=== PATIENT | female | born 1945 | race Caucasian/White ===

== ENCOUNTER 2017-06-11 10:20 | Outpatient (CLI) | payer MEDICARE, OTHER | END 2017-06-11 10:21 | disposition short-term general hospital (02) | LOC: EMS 10:20 | PROVIDERS: ATTEND Surgery | DX: R53.1 Weakness (principal); S91.312A Laceration without foreign body, left foot, initial encounter; W18.30XA Fall on same level, unspecified, initial encounter; Y92.039 Unspecified place in apartment as the place of occurrence of the external cause | CPT/HCPCS: A0425; A0429; A0888 ==

== ENCOUNTER 2017-11-13 11:52 | Outpatient (CLI) | payer MEDICARE, OTHER | END 2017-11-13 11:53 | disposition critical access hospital (66) | LOC: EMS 11:52 | PROVIDERS: ATTEND Surgery | DX: R53.1 Weakness (principal); R29.810 Facial weakness; R73.09 Other abnormal glucose | CPT/HCPCS: A0425; A0429 ==

== ENCOUNTER 2017-11-13 12:08 | Inpatient (IN) | payer MEDICARE, OTHER ==
--- NOTE | 2017-11-13 12:17 | ED Physician Documentation ---
PD HPI FOCAL NEURO - Stated complaint Stated Complaint: weakness - History obtained from History obtained from: Patient, EMS - History of Present Illness Timing - onset: Today (about 10 AM, when working with her Physicial therapist, had dyspnea and also noted to have right sided weakness and facial droop, per daughter as well. This persisted. Daughter increased her oxygen level to 5 lpm from 4 lpm, due to dyspnea and sats lower at 70%. Got neb treatment by EMS ( verbal by medic) and had just some facial droop right on arrival to ED per ER nurse. To CT soon after ED arrival. Sats are 92% on 4 lpm.) Timing - duration: Hours Timing - details: Abrupt onset, Still present Severity of deficit: Moderate Weakness: Face, Arm, Leg, Right Numbness: No: Face, Arm, Leg Associated symptoms: Other (dyspnea). No: Headache, Nausea / vomiting, Fall, Head injury Contributing factors: negative: Anticoagulated, Atrial fibrillation Baseline status: positive: Walker Similar symptoms before: Has not had sx before Recently seen: Not recently seen Review of Systems Constitutional: denies: Fever, Chills Nose: denies: Rhinorrhea / runny nose, Congestion Throat: denies: Sore throat Cardiac: denies: Chest pain / pressure, Palpitations Respiratory: reports: Dyspnea, Cough GI: denies: Abdominal Pain, Nausea, Vomiting, Diarrhea Skin: denies: Rash, Lesions Neurologic: reports: Generalized weakness, Focal weakness (today with apparent right weakness reported by daughter.). denies: Near syncope PD PAST MEDICAL HISTORY - Past Medical History Cardiovascular: Congestive heart failure Respiratory: Emphysema : Renal insuffiency Psych: Depression - Present Medications Home Medications: Ambulatory Orders Medication Instructions Recorded Confirmed Atorvastatin Calcium 40 mg PO DAILY 11/13/17 11/13/17 Bisacodyl [Dulcolax] 10 mg PO DAILY 11/13/17 11/13/17 Furosemide 20 mg PO MOWEFR@0800 11/13/17 11/13/17 HYDROcod/ACETAM 5/325 [[place] 5/325] 0.5 - 1 tab PO 0800,1600,2100 PRN 11/13/17 11/13/17 Insulin NPH Hum/Reg Insulin Hm 16 units SUBQ 0730 11/13/17 11/13/17 [Novolin 70-30 100 Unit/ml Vial] Insulin NPH Hum/Reg Insulin Hm 18 units SUBQ QPM 11/13/17 11/13/17 [Novolin 70-30 100 Unit/ml Vial] Levothyroxine Sodium [Synthroid] 200 mcg PO QDAC 11/13/17 11/13/17 Zinc 50 mg PO 1600 11/13/17 11/13/17 diphenhydrAMINE [Benadryl] 50 mg PO QPM 11/13/17 11/13/17 metFORMIN [Glucophage] 500 mg PO BIDWM 11/13/17 11/13/17 traMADol [Ultram] 50 mg PO 0800,1600 11/13/17 11/13/17 - Allergies Allergies/Adverse Reactions: Allergies Allergy/AdvReac Type Severity Reaction Status Date / Time No Known Drug Allergies Allergy Verified 11/13/17 12:15 PD ED PE NORMAL - Vitals Vital signs reviewed: Yes - General General: Alert and oriented X 3, Well developed/nourished - HEENT HEENT: Atraumatic, Ears normal, Pharynx benign - Neck Neck: Supple, no meningeal sign, No adenopathy, No bruit, Other (some JVD at 45 degrees) - Cardiac Cardiac: No murmur, No rub. No: RRR (regular but fast) - Respiratory Respiratory: No: Clear bilaterally (wet at bases and lower third. Soime scattered wheezing as well. ) - Abdomen Abdomen: Soft, Non tender - Female Female : Deferred - Rectal Rectal: Deferred - Back Back: No CVA TTP - Derm Derm: Normal color, Warm and dry - Extremities Extremities: No calf tenderness / cord, Other (edema in both ankles and legws 1+ . ) - Neuro Neuro: Alert and oriented X 3, No motor deficit, Normal speech NIHSS - Level of Consciousness Level of consciousness: (0) Alert, Keenly responsive LOC Questions: (0) Answers both Q's correct LOC Commands: (0) Performs both correctly - Gaze Best Gaze: (0) Normal - Visual Visual: (0) No loss - Facial Palsy Facial Palsy: (0) Normal, symmetrical movement - Motor Arms (both separate) Motor Arm (right): (0) No drift Motor Arm (left): (0) No drift - Motor Legs (both separate) Motor Leg (right): (0) No drift Motor Leg (left): (0) No drift - Limb Ataxia Limb Ataxia: (0) Absent - Sensory Sensory: (0) Normal - Best Language Best Language: (0) No aphasia - Dysarthria Dysarthria: (0) Normal - Extinction and Inattention (formally neg Extinction and inattention: (0) No abnormality - Total Score/Results Total Score/Result: 0 Results - Vitals Vitals: Vital Signs - 24 hr 11/13/17 11/13/17 11/13/17 12:11 12:50 13:30 Temperature 36.3 C L 36.3 C L Heart Rate 113 H 110 H 111 H Respiratory 20 18 22 Rate Blood Pressure 168/104 H O2 Saturation 94 92 Oxygen O2 Source Nasal cannula Oxygen Flow Rate 4 - EKG (time done) 12:52 Rate: Rate (enter#) (108) Rhythm: Sinus tachycardia [place]: Normal Intervals: Normal [place] QRS: Normal Ischemia: Normal ST segments. No: ST elevation c/w ischemia, ST depression - Labs Labs: Laboratory Tests 11/13/17 11/13/17 11/13/17 12:13 12:13 12:13 WBC 9.4 RBC 3.65 L Hgb 10.7 L Hct 33.9 L MCV 92.9 MCH 29.2 MCHC 31.5 L RDW 16.8 H Plt Count 232 MPV 8.2 Neut # 6.8 H Lymph # 1.2 L [place] # 1.1 H Eos # 0.1 Baso # 0.1 Absolute Nucleated RBC 0.00 Nucleated RBC % 0.0 Sodium 138 Potassium 4.5 Chloride 99 L Carbon Dioxide 29 Anion Gap 10.0 BUN 28 H Creatinine 1.5 H Estimated GFR (MDRD) 34 L Glucose 229 H Calcium 8.3 L Magnesium 1.6 L Total Bilirubin 0.4 AST 19 ALT < 10 L Alkaline Phosphatase 76 Troponin I B-Natriuretic Peptide Total Protein 7.4 Albumin 3.7 Globulin 3.7 Albumin/Globulin Ratio 1.0 Lipase 11 L 11/13/17 11/13/17 12:13 12:13 WBC RBC Hgb Hct MCV MCH MCHC RDW Plt Count MPV Neut # Lymph # [place] # Eos # Baso # Absolute Nucleated RBC Nucleated RBC % Sodium Potassium Chloride Carbon Dioxide Anion Gap BUN Creatinine Estimated GFR (MDRD) Glucose Calcium Magnesium Total Bilirubin AST ALT Alkaline Phosphatase Troponin I 0.30 B-Natriuretic Peptide 427 H Total Protein Albumin Globulin Albumin/Globulin Ratio Lipase - Rads (name of study) chest Radiology: Prelim report reviewed (congestive failure; no infiltrates) head CT/angio Radiology: Prelim report reviewed (no bleed, no acute flow abnormality) PD MEDICAL DECISION MAKING - ED course Complexity details: considered differential (consider TIA/small CVA, with improved symptoms. Associated with symptoms orf dyspnea and low sats, so could have been general weakness appearing more to right. Does have apparent exac CHF. ), d/w patient, d/w informatics consultant ([facility] - no acute interventions , usual workup for TIA vs. CVA. ) Departure - Departure Disposition: 66 [facility] DC/Xfer Clinical Impression: Right-sided muscle weakness Dyspnea Qualifiers: Dyspnea type: shortness of breath Qualified Code(s): R06.02 - Shortness of breath Acute exacerbation of CHF (congestive heart failure) Qualifiers: Congestive heart failure type: unspecified Qualified Code(s): I50.9 - Heart failure, unspecified TIA (transient ischemic attack) Qualifiers: Transient cerebral ischemia type: carotid artery syndrome (hemispheric) Qualified Code(s): G45.1 - Carotid artery syndrome (hemispheric) Condition: Stable Record reviewed to determine appropriate education?: Yes
[2017-11-13 12:25] LABS: BASOPHILS # (AUTO) 0.1 10^3/uL (0.0-0.1); BASOPHILS % (AUTO) 1.2 %; EOSINOPHILS # (AUTO) 0.1 10^3/uL (0.0-0.7); HGB - HEMOGLOBIN 10.7 g/dL (12.0-16.0); LYMPHOCYTES # (AUTO) 1.2 10^3/uL (1.5-3.5); LYMPHOCYTES % (AUTO) 13.2 %; MEAN CORPUSCULAR HEMOGLOBIN 29.2 pg (27.0-31.0); MEAN CORPUSCULAR HGB CONC 31.5 g/dL (32.0-36.0); MEAN CORPUSCULAR VOLUME 92.9 fL (81.0-99.0); MEAN PLATELET VOLUME 8.2 fL (7.9-10.8); MONOCYTES # (AUTO) 1.1 10^3/uL (0.0-1.0); MONOCYTES % (AUTO) 11.9 %; NEUTROPHILS # (AUTO) 6.8 10^3/uL (1.5-6.6); NEUTROPHILS % (AUTO) 72.7 %; PLT - PLATELET COUNT 232 10^3/uL (130-450); RED BLOOD COUNT 3.65 10^6/uL (4.20-5.40); RED CELL DISTRIBUTION WIDTH 16.8 % (12.0-15.0); WHITE BLOOD COUNT 9.4 x10^3/uL (4.8-10.8)
[2017-11-13] MEDS ORDERED: IOPAMIDOL-300 100 ML VIAL ONE (12:39)
[2017-11-13 12:42] LABS: ALBUMIN 3.7 g/dL (3.2-5.5); ALKALINE PHOSPHATASE 76 IU/L (42-121); ALT ALANINE AMINOTRANSFERASE < 10 IU/L (10-60); AST ASPARTATE AMINOTRANSFERASE 19 IU/L (10-42); BILIRUBIN,TOTAL 0.4 mg/dL (0.2-1.0); BUN - BLOOD UREA NITROGEN 28 mg/dL (6-20); CALCIUM 8.3 mg/dL (8.5-10.3); CARBON DIOXIDE - CO2 29 mmol/L (21-32); CHLORIDE 99 mmol/L (101-111); CREATININE 1.5 mg/dL (0.4-1.0); GFR - MDRD 34 (>89); GLUCOSE 229 mg/dL (70-100); LIPASE 11 U/L (22-51); SODIUM 138 mmol/L (135-145); TOTAL PROTEIN 7.4 g/dL (6.7-8.2)
--- NOTE | 2017-11-13 12:43 | XRAY Preliminary Report ---
Exam: XR CHEST 1 VIEW X-RAY IMPRESSION: 1. Mild CHF/fluid overload pattern including mild pulmonary vascular congestion and probable moderate cardiomegaly. 2. Elevation of the left hemidiaphragm. [facility] SITE ID: [id number]
--- NOTE | 2017-11-13 12:44 | XRAY Report ---
EXAM: CHEST RADIOGRAPHY EXAM DATE: 11/13/2017 12:32 PM. CLINICAL HISTORY: Dyspnea. COMPARISON: None. TECHNIQUE: 1 view. FINDINGS: Lungs/Pleura: The patient is markedly rotated. There is elevation of the left hemidiaphragm. There is mild pulmonary vascular congestion. No focal pulmonary consolidation. No large pleural effusion. No pneumothorax. Mediastinum: There is probable moderate enlargement of the cardiac silhouette, although this is diffi cult to evaluate due to patient rotation. Other: No acute osseous abnormality. IMPRESSION: 1. Mild CHF/fluid overload pattern including mild pulmonary vascular congestion and probable moderate cardiomegaly. 2. Elevation of the left hemidiaphragm. [facility] Referring Provider Line: [phone] SITE ID: [id number]
[2017-11-13] MEDS ORDERED: ASPIRIN CHEW 81 MG TABLET PO STA (13:00)
[2017-11-13] MEDS ORDERED: ALBUTEROL NEB 2.5 MG/3 ML INH STA (13:01)
[2017-11-13] MEDS ORDERED: FUROSEMIDE 40 MG/4 ML VIAL IVP STA (13:04)
--- NOTE | 2017-11-13 13:23 | CT Report ---
EXAM: CT ANGIOGRAM HEAD. CT SCAN OF THE HEAD WITHOUT AND WITH CONTRAST. EXAM DATE: 11/13/2017 12:47 PM CLINICAL HISTORY: Right weakness. COMPARISON: None. TECHNIQUE: 1. Noncontrast Head: Using a multidetector scanner, axial images were acquired from the foramen magnu m to the skull vertex prior to contrast administration. 2. CTA Head and Neck: Using a multidetector scanner, high-resolution axial images were acquired from the skull base through the vertex following rapid infusion of intravenous contrast. Multiplanar MIP r eformats were reconstructed. 3. Post-contrast head CT: 5 mm contiguous axial sections were obtained from the foramen magnum to bib cora was following CT angiogram. Evaluation of stenosis performed by NASCET criteria. IV Contrast: 80 cc [id number] protocol optimization, one or more of the following dose reduction techniques w ere utilized for this exam: automated exposure control, adjustment of mA and/or KV based on patient s ize, or use of iterative reconstructive technique. FINDINGS: NON-CONTRAST HEAD: Parenchyma: No acute parenchymal hemorrhage, mass, or midline shift. There is mild to moderate bilate ral areas of white matter hypoattenuation seen with more confluent areas seen within the left frontal left parietal lobes. These areas of white matter attenuation appear chronic. The supratentorial anahy ical mantle jackson-white differentiation appears distinct. Extra-axial Spaces: Normal. No extra-axial fluid collections or hemorrhage. Ventricles: Ventricles Orbits and Sinuses: Changes of bilateral lens replacement. Small bilateral maxillary mucosal retentio n cysts versus polyps. Small volume left mastoid effusion with trace right mastoid effusion. Middle e ar cavities appear clear.. Extracranial Soft Tissues and Bones: Extracranial soft tissues are unremarkable. No fractures. Other: Vascular calcifications of the cavernous ICA segments. CT ANGIOGRAM HEAD : RIGHT: Internal Carotid Artery: Tortuosity of the distal cervical ICA. Vascular calcification of the caverno us ICA segment with no high-grade stenosis seen. No aneurysm. Vertebral Artery: Patent without significant stenosis. No evidence of dissection. Anterior Cerebral Artery: Patent without significant stenosis, aneurysm, or vascular malformation. Middle Cerebral Artery: Patent without significant stenosis, aneurysm, or vascular malformation. Posterior Cerebral Artery: Patent without significant stenosis, aneurysm, or vascular malformation. Posterior Communicating Artery: Patent. No aneurysm. LEFT: Internal Carotid Artery: Tortuosity of the distal cervical ICA. Vascular calcification of the caverno us ICA segment with no high-grade stenosis seen. No aneurysm. Vertebral Artery: Patent without significant stenosis. No evidence of dissection. Anterior Cerebral Artery: Patent without significant stenosis, aneurysm, or vascular malformation. Middle Cerebral Artery: Patent without significant stenosis, aneurysm, or vascular malformation. Posterior Cerebral Artery: Patent without significant stenosis, aneurysm, or vascular malformation. Posterior Communicating Artery: Patent. No aneurysm. CENTRAL: Anterior Communicating Artery: Patent. No aneurysm. Basilar Artery: Patent without significant stenosis. No aneurysm. DURAL VENOUS SINUSES AND MAJOR CENTRAL VEINS: Patent. POST-CONTRAST HEAD: No abnormal enhancement. IMPRESSION: CT HEAD 1. No acute infarct, hemorrhage, mass, hydrocephalus, or abnormal postcontrast enhancement. 2. Mild to moderate white matter changes that appear chronic suggesting sequela of chronic small vess el ischemic disease. If there is clinical concern for acute stroke or symptoms persist an MR brain should be considered to evaluate for small or subtle pathology. CTA HEAD 1. No large vessel occlusion. 2. No intracranial aneurysm, stenosis, or vascular malformation. [facility] The call report notification system was initiated by Dr. Christiano Wilkes at 13:15 hrs on 11/01 12/16. The above findings were discussed with [facility] Charge Nurse by Dr. Christiano Wilkes at 1 3:20 hrs on 11/13/17. Referring Provider Line: [phone] SITE ID: [id number]
[2017-11-13] MEDS ORDERED: IOPAMIDOL-300 100 ML VIAL IVP ONE (13:33)
[2017-11-13] MEDS ORDERED: NITROGLYCERIN 2% PASTE TOP STA (14:01)
[2017-11-13] MEDS ORDERED: MAGNESIUM SULFATE 2 GRAM 2 GM/50 ML BAG IV ONE (14:02)
[2017-11-13] MEDS ORDERED: SODIUM CHLORIDE FLUSH 0.9% 10 ML SYRINGE IVP PRN (14:11)
[2017-11-13] MEDS ORDERED: TEMAZEPAM 15 MG CAPSULE PO PRN (14:11)
[2017-11-13] MEDS ORDERED: ACETAMINOPHEN 325 MG TABLET PO PRN (14:11)
[2017-11-13] MEDS ORDERED: SODIUM CHLORIDE 0.9% 1,000 ML IV SCH (15:00)
--- NOTE | 2017-11-13 15:27 | HISTORY & PHYSICAL EXAMINATION ---
Chief Complaint - Chief Complaint Chief Complaint: right sided weakness History of Present Illness - Admitted From Admitted From:: ED - History Obtained From Records Reviewed: yes History obtained from: chart review, daughter, patient Exam Limitations: patient's effort of breathing, discomfort and recent TIA sypmtoms. - History of Present Illness HPI Comment/Other: Aurora Pillai is a morbidly obese 72-year old white female with a past medical history of chronic pain, chronic indwelling roldan, fractured toes, DM type 2, CAD, HTN, hyperlipidemia, CHF,and hypothyroidism. She presented to the ED after her daughter found her with altered mental status around 0830, then at 10am the patient had a home visit from a physical therapist who immediately noticed a right facial droop with right sided weakness so an ambulance was called. Patient's daughter states that her mother had a low grade fever of 99.2 orally, slurred speech and she was much more tired than usual. She seemed to have trouble breathing so her daughter switched oxygen concentrators to see if the machine was the problem. The highest amount of O2 that could be given was 5L and her mother's saturations were in the 70's. Once she arrived in the ED, a head CT and CTA was performed that showed no acute bleeding. She will be admitted to observation for further work up of TIA. Upon acceptance, patient was noted to have an elevated troponin of 0.30. 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 She was for 32 years, but her about 4 years ago. She had 3 children, 3 girls and one boy. The boy at age 14 years. She raised her family in the state of [place]. Patient was a life-long smoker, but quit about 6 years ago after a really bad case of pneumonia. Patient denies alcohol, or other illicit drug use. She wishes to be a DNR. A long discussion about quality of life and possible upcoming procedures in the event she would need a cardiac cath. Patient was clear about not wanting anything invasive that would prolong her life. - Substance History Use: Uses substance without health or social issues: NONE Abuse: Recurrent use of substance despite neg consequences: NONE Dependence: Experiences withdrawal or developed tolerances: NONE - POLST Patient has POLST: Yes POLST Status: DNR Meds/Allgy - Home Medications Home Medications: Ambulatory Orders Medication Instructions Recorded Confirmed Atorvastatin Calcium 40 mg PO DAILY 11/13/17 11/13/17 Bisacodyl [Dulcolax] 10 mg PO DAILY 11/13/17 11/13/17 Furosemide 20 mg PO MOWEFR@0800 11/13/17 11/13/17 HYDROcod/ACETAM 5/325 [[place] 5/325] 0.5 - 1 tab PO 0800,1600,2100 PRN 11/13/17 11/13/17 Insulin NPH Hum/Reg Insulin Hm 16 units SUBQ 0730 11/13/17 11/13/17 [Novolin 70-30 100 Unit/ml Vial] Insulin NPH Hum/Reg Insulin Hm 18 units SUBQ QPM 11/13/17 11/13/17 [Novolin 70-30 100 Unit/ml Vial] Levothyroxine Sodium [Synthroid] 200 mcg PO QDAC 11/13/17 11/13/17 Zinc 50 mg PO 1600 11/13/17 11/13/17 diphenhydrAMINE [Benadryl] 50 mg PO QPM 11/13/17 11/13/17 metFORMIN [Glucophage] 500 mg PO BIDWM 11/13/17 11/13/17 traMADol [Ultram] 50 mg PO 0800,1600 11/13/17 11/13/17 - Allergies Allergies/Adverse Reactions: Allergies Allergy/AdvReac Type Severity Reaction Status Date / Time No Known Drug Allergies Allergy Verified 11/13/17 12:15 Review of Systems - Constitutional Constitutional: reports: Fatigue, Fever (99.2 per daughter, orally), Weakness - Eyes Eyes: reports: Vision loss, Corrective lenses - Ears, Nose & Throat Ears, Nose & Throat: reports: Hearing loss - Cardiovascular Cariovascular: reports: Edema, Decr. exercise tolerance - Respiratory Respiratory: reports: Cough, Wheezing, Orthopnea, SOB at rest, SOB with exertion , Other (chronic oxygen use- 4L nasal cannula.) - Gastrointestinal Gastrointestinal: reports: Abdominal distention, Constipation, Reflux/heartburn , Poor appetite - Genitourinary Genitourinary: reports: Dysuria, Frequency, Incontinence, Other (chronic indwelling roldan for immobility reasons since June.) - Integumentary Integumentary: reports: Lesions, Dryness, Other (yeasty folds, chronic coccyx wound) - Neurological Neurological: reports: General weakness, Focal weakness, Headache, Pre-existing deficit, Abnormal gait, Incoordination, Slurred speech - Psychiatric Psychiatric: reports: Depression - All Other Systems All Other Systems: reports: Reviewed and negative Exam - Vital Signs Reviewed Vital Signs: Yes Vital Signs: Vital Signs x48h Pulse Resp BP Pulse Ox 11/13/17 14:22 109 H 18 122/73 93 - Physical Exam General Appearance: positive: Alert, Moderate distress, Anxious Eyes Bilateral: positive: Normal inspection ENT: positive: ENT inspection nml Neck: positive: No JVD, Stiff neck Respiratory: positive: Chest non-tender, Wheezes, Rhonchi Cardiovascular: positive: No gallop, Irregularly irregular, Systolic murmur, Decreased pulse(s) Peripheral Pulses: positive: 1+ Abdomen: positive: Non-tender, Guarding, Hepatomegaly, Other (obese, soft) Skin: positive: No rash, Warm, Dry Extremities: positive: Pedal edema, Joint swelling, Other (weakness noted to RLE ) Neurologic/Psychiatric: positive: Oriented x3, Weakness, Sensory loss, Facial droop (right), Slurred/abnml speech (not baseline), Depressed mood/affect, Other (RUE, RLE weakness, drift.) Reflexes: Bicep (R): 1+, Bicep (L): 2+ Conclusion/Plan - Problem List (1) Right-sided muscle weakness Conclusion/Plan: Patient lives with her daughter and woke up around 8:30 am. Her last know normal was around 10pm. Her daughter noted that her mother was also not very alert and not breathing well and figured it might be her oxygen concentrator so changed it, but it still did not help. At 10am, a physical therapist came for her scheduled appointment and immediately noticed the patient with a right facial droop, right sided weakness, and hypoxic. Plan: TIA work up. Plavix loading dose of 300mg PO was ordered, echocardiogram , high dose statin and telemetry monitoring. (2) TIA (transient ischemic attack) Conclusion/Plan: Imaging completed in the ED showed no evidence of bleeding, although given presenting symptoms, likely a TIA. Plan: head MRI will be ordered, including a full work up. Qualifiers: Transient cerebral ischemia type: carotid artery syndrome (hemispheric) Qualified Code(s): G45.1 - Carotid artery syndrome (hemispheric) (3) Diabetes mellitus type 2 in obese Conclusion/Plan: Patient has had long standing DM with complicating factors such as morbid obesity, CAD, HTN and likely vascular disease. Plan: Hold home medications and start Lantus, SSI and blood sugar checks. HgA1C pending. (4) Elevated troponin Conclusion/Plan: Admission troponin was 0.30. There were no ST changes on admission EKG. Plan: New EKG ordered, repeat troponin at 6pm and 12 midnight and monitor vital signs. Code status: DNR. DVT prophylaxis: Lovenox and SCDs. - Lab Results Lab results reviewed: Yes Blayne Bones: 11/13/17 12:13 11/13/17 12:13 Core Measures - Anticipated LOS I expect patient to be DC'd or transferred within 96 hours.: Yes - DVT/VTE - Prophylaxis VTE/DVT Device ordered at admit?: Yes VTE/DVT Prophylaxis med ordered at admit?: Yes - Stroke - Rehab Assessment Rehab services assessment to be ordered?: Yes - AMI - Statin at Admit Aspirin Prescribed on Admit: Yes
[2017-11-13] MEDS ORDERED: CLOPIDOGREL 300 MG TABLET PO SCH (15:35)
[2017-11-13] MEDS ORDERED: LEVALBUTEROL 1.25 MG/3 ML NEB INH PRN (15:45)
[2017-11-13] MEDS ORDERED: MIN OIL/DIMETHICON/COCONUT OIL 92 GM TUBE TOP PRN (17:36)
[2017-11-13] MEDS ORDERED: A & D OINTMENT 5 GM PACKET TOP PRN (17:36)
[2017-11-13] MEDS ORDERED: COD LIVER OIL/ZINC OXIDE 113 GM TUBE TOP PRN (17:36)
[2017-11-13] MEDS: LEVOTHYROXINE 100 MCG TABLET PO SCH (18:20)
[2017-11-13] MEDS: ATORVASTATIN 40 MG TABLET PO SCH ×2 (18:20→20:41)
[2017-11-13] MEDS: SODIUM CHLORIDE FLUSH 0.9% 10 ML SYRINGE IVP SCH (18:21)
--- NOTE | 2017-11-13 18:21 | MRI Preliminary Report ---
Exam: MRI BRAIN W/O IMPRESSION: (Limited study. Only limited MR sequences could be obtained. Motion artifact is seen involving the se osvaldo that are obtained.) 1. No restricted diffusion to suggest acute infarct. 2. Scattered cystic foci in the cerebral hemispheres and left cerebellum. Findings likely represent s equela of old lacunar infarct. [facility] SITE ID: [id number]
[2017-11-13] MEDS: INSULIN ASPART 300 UNIT/3 ML PEN SUBQ SCH ×3 (18:27→21:32)
--- NOTE | 2017-11-13 18:40 | MRI Report ---
EXAM: MRI BRAIN WITHOUT CONTRAST (LIMITED). EXAM DATE: 11/13/2017 06:05 PM. CLINICAL HISTORY: Right-sided weakness. COMPARISON: CT scan and CT angiogram of the head 11/13/2017. TECHNIQUE: Axial, diffusion/ADC map as well as T2 MR sequences of the brain were performed. The patie nt was unable to tolerate completion of the exam. Sequences optimized for limited evaluation. Other: None. IV Contrast: None. FINDINGS: (Study is limited by motion artifact). Brain Volume: Normal for age. Parenchyma/Dura: No evidence of restricted diffusion is seen to suggest acute infarct. On T2-weighted series, several cystic foci are noted in the john radiata and pericallosal region bi laterally. Cystic focus is seen in the left cerebellum. No intracranial mass is appreciated. Ventricles/Cisterns: No hydrocephalus. No abnormal extra-axial fluid collection or hemorrhage. Orbits: Grossly unremarkable. Sella Turcica: Grossly unremarkable. Probable partially empty sella turcica. IAC: Grossly unremarkable. Vasculature: Normal signal flow void is seen in the major arterial structures at the skull base. Sinuses: No acute appearing sinus disease. Poor pneumatization of inferior mastoid air cells is noted . Bones: No focal pathologic appearing marrow signal changes. Other: None. IMPRESSION: (Limited study. Only limited MR sequences could be obtained. Motion artifact is seen involving the se osvaldo that are obtained.) 1. No restricted diffusion to suggest acute infarct. 2. Scattered cystic foci in the cerebral hemispheres and left cerebellum. Findings likely represent s equela of old lacunar infarct. [facility] Referring Provider Line: [phone] SITE ID: [id number]
[2017-11-13 19:12] LABS: CREATINE KINASE MB 3.7 ng/mL (0.6-6.3)
[2017-11-13 19:17] LABS: TROPONIN I 0.58 ng/mL (<0.49)
[2017-11-13 19:25] LABS: HB2 TOTAL 11.4 g/dL; HEMOGLOBIN A1C 0.47 g/dL; HEMOGLOBIN A1C % 5.9 % (4.6-6.2)
[2017-11-13] MEDS: SODIUM CHLORIDE 0.9% 1,000 ML IV SCH (20:06)
[2017-11-13] MEDS ORDERED: INSULIN GLARGINE 300 UNIT/3 ML PEN SUBQ SCH (21:00)
[2017-11-13] MEDS: HEPARIN 5,000 UNIT/ML VIAL SUBQ SCH (21:30)
[2017-11-13] MEDS: METOPROLOL TARTRATE 25 MG TABLET PO SCH (21:35)
[2017-11-14 00:43] LABS: BILIRUBIN,URINE NEGATIVE (NEGATIVE); GLUCOSE, URINE (UA) NEGATIVE (NEGATIVE); KETONES,URINE (UA) NEGATIVE (NEGATIVE); LEUKOCYTE ESTERASE, URINE SMALL (NEGATIVE); NITRITE,URINE POSITIVE (NEGATIVE); OCCULT BLOOD,URINE TRACE-INTA (NEGATIVE); PROTEIN,URINE NEGATIVE (NEGATIVE); UROBILINOGEN,URINE 0.2 (NORMAL) E.U./dL (NORMAL)
[2017-11-14] MEDS: NYSTATIN POWDER 15 GM TOP SCH ×3 (00:48→20:58)
[2017-11-14 00:52] LABS: AMORPHOUS SEDIMENT,UR Few /LPF; BACTERIA,URINE Rare /HPF (None Seen); CLARITY,URINE HAZY (CLEAR); EPITHELIAL CELLS,UR FEW Renal Tubular /HPF (<= Few); RBC,URINE 0-5 /HPF (0-5); SQUAMOUS EPITHELIAL CELL,UR NONE SEEN (<= Few)
[2017-11-14] MEDS ORDERED: ACETAMINOPHEN 325 MG TABLET PO PRN (01:42)
[2017-11-14 05:52] LABS: CALCIUM 8.4 mg/dL (8.5-10.3); CREATININE 1.1 mg/dL (0.4-1.0); MAGNESIUM 1.8 mg/dL (1.7-2.8)
[2017-11-14 06:01] LABS: CHOL/HDL RATIO 3.2 (<4.4); CHOLESTEROL 122 mg/dL; HDL CHOLESTEROL 38 mg/dL; LDL CHOLESTEROL,CALCULATED 52 mg/dL; LDL/HDL RATIO 1.4 (<4.4); VLDL CHOLESTEROL 32 mg/dL
[2017-11-14] MEDS: LEVOTHYROXINE 100 MCG TABLET PO SCH (06:13)
[2017-11-14] MEDS: FUROSEMIDE 40 MG/4 ML VIAL IVP SCH ×2 (06:14→14:48)
--- NOTE | 2017-11-14 06:40 | XRAY Preliminary Report ---
Exam: XR CHEST 1 VIEW X-RAY IMPRESSION: 1. Small lung volumes with cardiomegaly and increased asymmetric pulmonary opacities, right worse minna n left. [facility] SITE ID: [id number]
--- NOTE | 2017-11-14 06:40 | XRAY Report ---
EXAM: CHEST RADIOGRAPHY EXAM DATE: 11/14/2017 06:15 AM. CLINICAL HISTORY: Follow-up congestive heart failure. COMPARISON: 11/13/2017. TECHNIQUE: 1 view. FINDINGS: Lungs/Pleura: Asymmetric pulmonary opacities, right worse than left, increased compared with the prio r exam. Small lung volumes. Minimal if any pleural fluid. No pneumothorax. Mediastinum: Moderate cardiomegaly. Aortic atherosclerosis. Other: None. IMPRESSION: 1. Small lung volumes with cardiomegaly and increased asymmetric pulmonary opacities, right worse minna n left. [facility] Referring Provider Line: [phone] SITE ID: [id number]
[2017-11-14] MEDS: SODIUM CHLORIDE FLUSH 0.9% 10 ML SYRINGE IVP SCH ×3 (07:45→23:36)
[2017-11-14] MEDS: CLOPIDOGREL 75 MG TABLET PO SCH ×2 (08:23→09:09)
[2017-11-14] MEDS: ASPIRIN EC 81 MG TABLET PO SCH (08:24)
[2017-11-14] MEDS: NITROFURANTOIN MACRO 100 MG CAPSULE PO SCH ×2 (08:24→20:45)
[2017-11-14] MEDS: METOPROLOL TARTRATE 25 MG TABLET PO SCH ×2 (08:25→20:45)
[2017-11-14] MEDS: ISOSORBIDE MONONITRATE ER 30 MG TABLET PO SCH (08:25)
[2017-11-14] MEDS: BISACODYL 5 MG TABLET PO SCH (08:25)
[2017-11-14] MEDS: FAMOTIDINE 20 MG TABLET PO SCH (08:26)
[2017-11-14] MEDS: POLYETHYLENE GLYCOL 3350 17 GM PACKET PO SCH (08:27)
[2017-11-14] MEDS: INSULIN ASPART 300 UNIT/3 ML PEN SUBQ SCH ×7 (08:28→20:47)
[2017-11-14] MEDS: HEPARIN 5,000 UNIT/ML VIAL SUBQ SCH (08:37)
[2017-11-14] MEDS ORDERED: ENOXAPARIN 40 MG/0.4 ML SYRINGE SUBQ SCH (09:00)
--- NOTE | 2017-11-14 10:28 | PROVIDER PROGRESS NOTE ---
Subjective - Prog Note Date Prog Note Date: 11/14/17 Prog Note Time: 10:28 - Subjective Pt reports feeling: No change Subjective: Latoya wishes to go home. She denies chest pain, N/V or a new cough. She still needs increase amounts of oxygen. Current Medications - Current Medications Current Medications: Active Medications Acetaminophen (Tylenol) 650 mg PO Q4HR PRN PRN Reason: Pain or Fever > 38C (100.4F) Aspirin (Ecotrin) 81 mg PO DAILY [facility] Last Admin: 11/14/17 08:24 Dose: 81 mg Atorvastatin Calcium (Lipitor) 80 mg PO QPM [facility] Last Admin: 11/13/17 20:41 Dose: Not Given Bisacodyl (Dulcolax) 10 mg PO DAILY [facility] Last Admin: 11/14/17 08:25 Dose: 10 mg Clopidogrel Bisulfate (Plavix) 75 mg PO DAILY [facility] Last Admin: 11/14/17 09:09 Dose: Not Given Famotidine (Pepcid) 20 mg PO DAILY [facility] Last Admin: 11/14/17 08:26 Dose: 20 mg Furosemide (Lasix Inj 40 Mg Vial) 40 mg IVP BIDDIURETIC [facility] Last Admin: 11/14/17 06:14 Dose: 40 mg Heparin Sodium (Porcine) () 5,000 unit SUBQ BID [facility] Last Admin: 11/14/17 08:37 Dose: 5,000 unit Sodium Chloride (Normal Saline 0.9%) 1,000 mls @ 30 mls/hr IV .[id number] [facility] Last Admin: 11/13/17 20:06 Dose: Not Given Insulin Aspart (Novolog) 5 unit SUBQ TIDWM [facility] PRN Reason: Protocol Last Admin: 11/14/17 08:29 Dose: 5 unit Insulin Aspart (Novolog) 1 - 5 unit SUBQ 0800,1200,1700,2100 [facility] PRN Reason: Protocol Last Admin: 11/14/17 08:28 Dose: 2 unit Insulin Glargine (Lantus Solostar) 10 unit SUBQ QPM [facility] Last Admin: 11/13/17 21:33 Dose: 10 unit Insulin Human Isoph/Insulin Regular (Novolin) unit SUBQ 0730 PERNELL Insulin Human Isoph/Insulin Regular (Novolin) unit SUBQ QPM [facility] Isosorbide Mononitrate (Imdur) 30 mg PO DAILY [facility] Last Admin: 11/14/17 08:25 Dose: 30 mg Levalbuterol HCl (Xopenex) 1.25 mg INH RTQ4H PRN PRN Reason: WHEEZING/SOB Levothyroxine Sodium (Synthroid) 200 mcg PO QDAC [facility] Last Admin: 11/14/17 06:13 Dose: 200 mcg Metoprolol Tartrate (Lopressor) 25 mg PO BID [facility] Last Admin: 11/14/17 08:25 Dose: 25 mg Mineral Oil (Cavilon) 1 applic TOP PRN PRN PRN Reason: Skin Care Last Admin: 11/13/17 21:36 Dose: 1 unit Nitrofurantoin (Macrobid) 100 mg PO BID [facility] Last Admin: 11/14/17 08:24 Dose: 100 mg Nystatin (Nystop) 1 applic TOP BID [facility] Last Admin: 11/14/17 08:43 Dose: 1 applic Polyethylene Glycol (Miralax) 17 gm PO DAILY [facility] Last Admin: 11/14/17 08:27 Dose: 17 gm Sodium Chloride (Normal Saline Flush 0.9%) 10 ml IVP PRN PRN PRN Reason: NEEDED PER PROVIDER ORDERS Sodium Chloride (Normal Saline Flush 0.9%) 10 ml IVP Q8HR [facility] Last Admin: 11/14/17 07:45 Dose: Not Given Temazepam (Restoril) 15 mg PO QPM PRN PRN Reason: Insomnia Tramadol HCl (Ultram) 50 mg PO 0800,1600 [facility] Vitamin A/Vitamin D (Vitamin A & D Ointment) 1 applic TOP PRN PRN PRN Reason: Skin Care Zinc Oxide (Desitin) 113 gm TOP PRN PRN PRN Reason: Skin Care Last Admin: 11/13/17 21:37 Dose: 1 applic Atorvastatin Calcium 40 mg PO DAILY 11/13/17 Bisacodyl [Dulcolax] 10 mg PO DAILY 11/13/17 Furosemide 20 mg PO MOWEFR@0800 11/13/17 HYDROcod/ACETAM 5/325 [[place] 5/325] 0.5 - 1 tab PO 0800,1600,2100 PRN 11/13/17 Insulin NPH Hum/Reg Insulin Hm [Novolin 70-30 100 Unit/ml Vial] 16 units SUBQ 0730 11/13/17 Insulin NPH Hum/Reg Insulin Hm [Novolin 70-30 100 Unit/ml Vial] 18 units SUBQ QPM 11/13/17 Levothyroxine Sodium [Synthroid] 200 mcg PO QDAC 11/13/17 Zinc 50 mg PO 1600 11/13/17 diphenhydrAMINE [Benadryl] 50 mg PO QPM 11/13/17 metFORMIN [Glucophage] 500 mg PO BIDWM 11/13/17 traMADol [Ultram] 50 mg PO 0800,1600 11/13/17 Objective - Vital Signs/Intake & Output Reviewed Vital Signs: Yes Vital Signs: Vital Signs x48h Temp Pulse Resp BP BP Pulse Ox 11/14/17 08:25 156/72 H 11/14/17 07:54 36.9 C 100 16 156/72 H 95 Intake & Output: Intake & Output 11/11/17 11/12/17 11/13/17 11/14/17 23:59 23:59 23:59 23:59 Intake Total 360 Output Total 1700 Balance -1340 - Objective General Appearance: positive: No acute distress, Alert, Lethargic Eyes Bilateral: positive: Normal inspection, PERRL ENT: positive: ENT inspection nml, Pharynx nml, Dry mucous membranes Neck: positive: Nml inspection, Thyroid nml, No JVD, Stiff neck Respiratory: positive: Chest non-tender, No respiratory distress, Wheezes, Other (crackles low bases.) Cardiovascular: positive: No gallop, Irregularly irregular, Systolic murmur, Decreased pulse(s) Peripheral Pulses: 1+ Radial (R), 1+ Radial (L) Abdomen: positive: Non-tender, Nml bowel sounds, Hepatomegaly Back: positive: Nml inspection Skin: positive: No rash, Warm, Dry, Pallor Extremities: positive: Non-tender, Full ROM, Pedal edema, Joint swelling Neurologic/Psychiatric: positive: Disoriented to time, Weakness, Sensory loss, Depressed mood/affect Reflexes: Bicep (R): 2+, Bicep (L): 2+ - Lab Results Fish Bones: 11/13/17 12:13 11/14/17 05:24 - Diagnostic Imaging Diagnostic Imaging Results: positive: Final report reviewed Assessment/Plan - Problem List (1) TIA (transient ischemic attack) Impression: Patient presented to the ED with profound right sided UE/LE weakness with + numbness and tingling that is almost completely subsided today. Patient remains with mild confusion, right sided facial droop, and right upper body drift. Patient was prescribed 300mg PO Plavix x1, then continued on 75mg daily. Plans to start Apixiban today in the setting of paroxysmal atrial fibrillation. Plan: Continue medical management and plan for PT to evaluate before discharge. Qualifiers: Transient cerebral ischemia type: carotid artery syndrome (hemispheric) Qualified Code(s): G45.1 - Carotid artery syndrome (hemispheric) (2) Right-sided muscle weakness Impression: This was much more prominent upon admission, but now almost completely resolved. Plan: Continue to monitor. (3) Diabetes mellitus type 2 in obese Impression: Patient had a very nice HgA1C at just 5.9 upon admission. Patient takes 70/30 insulin and SSI at home. In addition, patient is prescribed metformin, which is now on hold as per hospital policy. Plan: Continue 70/30 insulin with SSI, encourage oral intake. Monitor blood sugars. (4) Acute non-ST elevation myocardial infarction (NSTEMI) Impression: Upon transfer from the ED to the nursing unit patient was found to have an elevated INR of 0.30, that soon doubled to 0.58. After long discussions with the patient and her daughter, of whom she lives with, patient does not want any cardiac interventions. Plan: Continue medical management including BB, Imdur and control atrial fibrillation. (5) Acute exacerbation of CHF (congestive heart failure) Impression: Patient's appears fluid overloaded upon exam. Plan: In addition to furosemide 40mg IV BID, spironolactone was added daily. Continue to monitor fluid status and labs. Qualifiers: Congestive heart failure type: unspecified Qualified Code(s): I50.9 - Heart failure, unspecified (6) UTI (urinary tract infection) Impression: A UA was obtained and shows +UTI. Patient has had an indwelling roldan catheter since 06/2017 after she became more confined to bed from a toe injury. Plan: Continue Bactrim and await culture results. Qualifiers: Urinary tract infection type: catheter-associated UTI
[2017-11-14] MEDS: SPIRONOLACTONE 25 MG TABLET PO SCH (14:47)
[2017-11-14] MEDS ORDERED: WITCH HAZEL/GLYCERIN 1 EACH MED..PAD TOP PRN (16:11)
[2017-11-14] MEDS: traMADol 50 MG TABLET PO SCH (16:35)
[2017-11-14] MEDS: ATORVASTATIN 40 MG TABLET PO SCH (20:44)
[2017-11-14] MEDS: APIXABAN 2.5 MG TABLET PO SCH (20:56)
[2017-11-14] MEDS ORDERED: INSULIN 70/30 HUMAN 100 UNIT/1 ML 10 ML MDV SUBQ SCH (21:00)
[2017-11-15] MEDS: FUROSEMIDE 40 MG/4 ML VIAL IVP SCH (05:52)
[2017-11-15] MEDS: SODIUM CHLORIDE 0.9% 1,000 ML IV SCH (05:53)
[2017-11-15] MEDS: SODIUM CHLORIDE FLUSH 0.9% 10 ML SYRINGE IVP SCH (05:53)
[2017-11-15 06:04] LABS: CALCIUM 8.6 mg/dL (8.5-10.3); CREATININE 1.4 mg/dL (0.4-1.0); MAGNESIUM 1.9 mg/dL (1.7-2.8)
[2017-11-15] MEDS: LEVOTHYROXINE 100 MCG TABLET PO SCH (06:06)
[2017-11-15] MEDS ORDERED: INSULIN 70/30 HUMAN 100 UNIT/1 ML 10 ML MDV SUBQ SCH (07:30)
[2017-11-15] MEDS: INSULIN ASPART 300 UNIT/3 ML PEN SUBQ SCH ×4 (08:48→11:53)
[2017-11-15] MEDS: traMADol 50 MG TABLET PO SCH (08:52)
[2017-11-15] MEDS: ASPIRIN EC 81 MG TABLET PO SCH (08:52)
[2017-11-15] MEDS: BISACODYL 5 MG TABLET PO SCH (08:52)
[2017-11-15] MEDS: METOPROLOL TARTRATE 25 MG TABLET PO SCH (08:53)
[2017-11-15] MEDS: SPIRONOLACTONE 25 MG TABLET PO SCH (08:53)
[2017-11-15] MEDS: ISOSORBIDE MONONITRATE ER 30 MG TABLET PO SCH (08:53)
[2017-11-15] MEDS: POLYETHYLENE GLYCOL 3350 17 GM PACKET PO SCH (08:54)
[2017-11-15] MEDS: FAMOTIDINE 20 MG TABLET PO SCH (08:54)
[2017-11-15] MEDS: APIXABAN 2.5 MG TABLET PO SCH (08:54)
[2017-11-15] MEDS: NYSTATIN POWDER 15 GM TOP SCH (08:55)
[2017-11-15] MEDS: NITROFURANTOIN MACRO 100 MG CAPSULE PO SCH (09:09)
--- NOTE | 2017-11-15 10:53 | Discharge Plan ---
Discharge Plan Disposition: Home Health Service Condition: Good Prescriptions: Apixaban [Eliquis] 10 mg PO BID #60 tablet Furosemide 40 mg PO DAILY #60 tablet Isosorbide Mononitrate ER [Imdur] 30 mg PO DAILY #60 tablet Metoprolol Succinate [Toprol Xl] 50 mg PO DAILY #60 tablet Nitrofurantoin [Macrobid] 100 mg PO BID 10 Days #10 capsule Nystatin [Nystop] 1 applic TOP BID #1 bottle Spironolactone [Aldactone] 25 mg PO DAILY #60 tablet Diet: Diabetic Activity Restrictions: Activity as Tolerated Shower Restrictions: No Driving Restrictions: No Assistance Devices: Wheelchair, Walker Weight Bearing: Full Weight Additional Instructions or Follow Up instructions: You had moderate right sided weakness and low oxygen when you arrived in the ER. Testing confirmed that you likely suffered a TIA (a mini stroke), and a small heart attack. We did a urine test that confirms a urinary tract infection. You need to take at least 5 more days of antibiotics. You also were found to have a heart arrhythmia called atrial fibrillation that may have caused your TIA. You need to be on a blood thinner to prevent a stroke. Please note new medications that will help your heart function improve and be the most efficient. Please see your PCP in one week. If you do not have a senior corporate accountant, you should see one. Ask your PCP for a referral. Some cardiologists come to our [facility] clinic. No Smoking: If you smoke, Please STOP! Call for help.
[2017-11-15] MEDS ORDERED: METOPROLOL SUCCINATE 50 MG TABLET PO SCH (11:00)
--- NOTE | 2017-11-15 11:14 | DISCHARGE SUMMARY ---
Discharge Summary Admit Date: 11/13/17 Discharge Date: 11/15/17 Discharging Provider: SAVANNAH Lawrence Primary Care Provider: Jose Luis Metcalf Code Status: Do Not Attempt Resuscitation Condition at Discharge: Good Discharge Disposition: Home Health Service - DIAGNOSES Admission Diagnoses: Weakness (R53.1) Chronic respiratory failure with hypoxia (J96.11) Type 2 diabetes mellitus with other specified complication (E11.69) Non-ST elevation (NSTEMI) myocardial infarction (I21.4) Transient cerebral ischemic attack, unspecified (G45.9) Discharge Diagnoses with Status of Each Condition: TIA (transient ischemic attack) (G45.9) new on this admit, symptoms mostly resolved on discharge. Acute non-ST elevation myocardial infarction (NSTEMI) (I21.4) new on this admission, medical management. Right sided weakness (R53.1) resolved, equal strength and baseline ambulation. Diabetes mellitus type 2 in obese (E11.69) chronic, stable. Chronic respiratory failure with hypoxia, on home O2 therapy (J96.11) chronic, stable. - HPI History of Present Illness: Aurora Pillai is a morbidly obese 72-year old white female with a past medical history of chronic pain, chronic indwelling roldan, fractured toes, DM type 2, CAD, HTN, hyperlipidemia, CHF,and hypothyroidism. She presented to the ED after her daughter found her with altered mental status around 0830, then at 10am the patient had a home visit from a physical therapist who immediately noticed a right facial droop with right sided weakness so an ambulance was called. Patient's daughter states that her mother had a low grade fever of 99.2 orally, slurred speech and she was much more tired than usual. She seemed to have trouble breathing so her daughter switched oxygen concentrators to see if the machine was the problem. The highest amount of O2 that could be given was 5L and her mother's saturations were in the 70's. Once she arrived in the ED, a head CT and CTA was performed that showed no acute bleeding. She will be admitted to observation for further work up of TIA. Upon acceptance, patient was noted to have an elevated troponin of 0.30. - HOSPITAL COURSE Hospital Course: The following problems/diagnoses were prevalent during this hospital stay: (1) TIA (transient ischemic attack)- Patient presented to the ED with profound right sided UE/LE weakness with +numbness and tingling that is almost completely subsided today. Patient remains with mild confusion, right sided facial droop, and right upper body drift. Patient was prescribed 300mg PO Plavix x1, then continued on 75mg daily. Plans to start Apixiban today in the setting of paroxysmal atrial fibrillation. Patient was treated using medical management and passed her PT evaluation that was completed just before discharge. (2) Right-sided muscle weakness- Patient had a home visit from a physical therapist on the morning of admission, who immediately noticed a right facial droop with right sided weakness so an ambulance was called. During the admission exam, patient complained of numbness/tingling to RUE and RLE accompanied by right facial droop, mild AMS and slurred speech. This slowly improved, and was noted to be almost completely resolved at the time of discharge. She had equal strength on the AM of discharge, had clear mentation and could support her own weight per physical therapy evaluation. Orders for continued home PT for home. (3) Diabetes mellitus type 2 in obese- Patient had a very nice HgA1C at just 5.9 upon admission. Patient takes 70/30 insulin and SSI at home. In addition, patient is prescribed metformin, which is now on hold as per hospital policy. Patient was continued on 70/30 insulin with SSI, encouraged oral intake. Blood sugars were noted to be 123-179. (4) Acute non-ST elevation myocardial infarction (NSTEMI)- Upon transfer from the ED to the nursing unit patient was found to have an elevated troponin of 0.30, that soon doubled to 0.58. After long discussions with the patient and her daughter, of whom she lives with, patient does not want any cardiac interventions. Patient was started with medical management including a beta is[place], Imdur and control atrial fibrillation with a new anticoagulant of Apixaban. (5) Acute exacerbation of CHF (congestive heart failure)- Patient's appeared fluid overloaded upon admission exam. In addition to furosemide 40mg IV BID, spironolactone was added daily. Patient's fluid status was closely monitored and both furosemide and spironlactone were continued upon admission. (6) UTI (urinary tract infection)- A UA was obtained and shows +UTI. Patient has had an indwelling roldan catheter since 06/2017 after she became more confined to bed from a toe injury. Patient was started on Bactrim and is to continue for another 5 days, although cultures were not indicated as too many oscar floral cells were present. Disposition: Patient was transported via private car with daughter home. Patient was sent on her usual dose of home oxygen of 4Ls per nasal cannula. Patient was at her baseline activity level. - ALLERGIES Allergies/Adverse Reactions: Allergies Allergy/AdvReac Type Severity Reaction Status Date / Time No Known Drug Allergies Allergy Verified 11/13/17 12:15 - MEDICATIONS Home Medications: Ambulatory Orders Medication Instructions Recorded Confirmed Atorvastatin Calcium 40 mg PO DAILY 11/13/17 11/13/17 Bisacodyl [Dulcolax] 10 mg PO DAILY 11/13/17 11/13/17 HYDROcod/ACETAM 5/325 [[place] 5/325] 0.5 - 1 tab PO 0800,1600,2100 PRN 11/13/17 11/13/17 Insulin NPH Hum/Reg Insulin Hm 16 units SUBQ 0730 11/13/17 11/13/17 [Novolin 70-30 100 Unit/ml Vial] Insulin NPH Hum/Reg Insulin Hm 18 units SUBQ QPM 11/13/17 11/13/17 [Novolin 70-30 100 Unit/ml Vial] Levothyroxine Sodium [Synthroid] 200 mcg PO QDAC 11/13/17 11/13/17 Zinc 50 mg PO 1600 11/13/17 11/13/17 diphenhydrAMINE [Benadryl] 50 mg PO QPM 11/13/17 11/13/17 metFORMIN [Glucophage] 500 mg PO BIDWM 11/13/17 11/13/17 traMADol [Ultram] 50 mg PO 0800,1600 11/13/17 11/13/17 Apixaban [Eliquis] 10 mg PO BID #60 tablet 11/15/17 Furosemide 40 mg PO DAILY #60 tablet 11/15/17 Isosorbide Mononitrate ER [Imdur] 30 mg PO DAILY #60 tablet 11/15/17 Metoprolol Succinate [Toprol Xl] 50 mg PO DAILY #60 tablet 11/15/17 Nitrofurantoin [Macrobid] 100 mg PO BID 10 Days #10 capsule 11/15/17 Nystatin [Nystop] 1 applic TOP BID #1 bottle 11/15/17 Spironolactone [Aldactone] 25 mg PO DAILY #60 tablet 11/15/17 - PHYSICAL EXAM AT DISCHARGE General Appearance: positive: No acute distress, Alert Eyes Bilateral: positive: Normal inspection, PERRL ENT: positive: ENT inspection nml, Pharynx nml, No signs of dehydration Neck: positive: Nml inspection, Thyroid nml, No JVD, Trachea midline Respiratory: positive: Chest non-tender, No respiratory distress, Other ( diminished.) Cardiovascular: positive: No gallop, Irregularly irregular, Systolic murmur, Decreased pulse(s) Peripheral Pulses: positive: 1+ Abdomen: positive: Non-tender, Nml bowel sounds Back: positive: Nml inspection Skin: positive: No rash, Warm, Dry, Pallor Extremities: positive: Non-tender, Pedal edema (chronic BLE edema), Joint swelling Neurologic/Psychiatric: positive: Oriented x3, CN's nml (2-12), Motor nml, Weakness, Sensory loss, Facial droop (very mild right facial droop), Depressed mood/affect Reflexes: Bicep (R): 2+, Bicep (L): 2+ - LABS Result Diagrams: 11/13/17 12:13 11/15/17 05:16 - DIAGNOSTIC IMAGING Diagnostic Imaging Results: Final report reviewed Diagnostic Imaging Results Comments: EXAM: CHEST RADIOGRAPHY EXAM DATE: 11/13/2017 12:32 PM. CLINICAL HISTORY: Dyspnea. COMPARISON: None. TECHNIQUE: 1 view. FINDINGS: Lungs/Pleura: The patient is markedly rotated. There is elevation of the left hemidiaphragm. There is mild pulmonary vascular congestion. No focal pulmonary consolidation. No large pleural effusion. No pneumothorax. Mediastinum: There is probable moderate enlargement of the cardiac silhouette, although this is difficult to evaluate due to patient rotation. Other: No acute osseous abnormality. IMPRESSION: 1. Mild CHF/fluid overload pattern including mild pulmonary vascular congestion and probable moderate cardiomegaly. 2. Elevation of the left hemidiaphragm. EXAM: CT ANGIOGRAM HEAD. CT SCAN OF THE HEAD WITHOUT AND WITH CONTRAST. EXAM DATE: 11/13/2017 12:47 PM CLINICAL HISTORY: Right weakness. COMPARISON: None. TECHNIQUE: 1. Noncontrast Head: Using a multidetector scanner, axial images were acquired from the foramen magnum to the skull vertex prior to contrast administration. 2. CTA Head and Neck: Using a multidetector scanner, high-resolution axial images were acquired from the skull base through the vertex following rapid infusion of intravenous contrast. Multiplanar MIP reformats were reconstructed. 3. Post-contrast head CT: 5 mm contiguous axial sections were obtained from the foramen magnum to vertex was following CT angiogram. Evaluation of stenosis performed by NASCET criteria. IV Contrast: 80 cc [id number] protocol optimization, one or more of the following dose reduction techniques were utilized for this exam: automated exposure control, adjustment of mA and/or KV based on patient size, or use of iterative reconstructive technique. FINDINGS: NON-CONTRAST HEAD: Parenchyma: No acute parenchymal hemorrhage, mass, or midline shift. There is mild to moderate bilateral areas of white matter hypoattenuation seen with more confluent areas seen within the left frontal left parietal lobes. These areas of white matter attenuation appear chronic. The supratentorial cortical mantle jackson-white differentiation appears distinct. Extra-axial Spaces: Normal. No extra-axial fluid collections or hemorrhage. Ventricles: Ventricles Orbits and Sinuses: Changes of bilateral lens replacement. Small bilateral maxillary mucosal retention cysts versus polyps. Small volume left mastoid effusion with trace right mastoid effusion. Middle ear cavities appear clear.. Extracranial Soft Tissues and Bones: Extracranial soft tissues are unremarkable. No fractures. Other: Vascular calcifications of the cavernous ICA segments. CT ANGIOGRAM HEAD : RIGHT: Internal Carotid Artery: Tortuosity of the distal cervical ICA. Vascular calcification of the cavernous ICA segment with no high-grade stenosis seen. No aneurysm. Vertebral Artery: Patent without significant stenosis. No evidence of dissection. Anterior Cerebral Artery: Patent without significant stenosis, aneurysm, or vascular malformation. Middle Cerebral Artery: Patent without significant stenosis, aneurysm, or vascular malformation. Posterior Cerebral Artery: Patent without significant stenosis, aneurysm, or vascular malformation. Posterior Communicating Artery: Patent. No aneurysm. LEFT: Internal Carotid Artery: Tortuosity of the distal cervical ICA. Vascular calcification of the cavernous ICA segment with no high-grade stenosis seen. No aneurysm. Vertebral Artery: Patent without significant stenosis. No evidence of dissection. Anterior Cerebral Artery: Patent without significant stenosis, aneurysm, or vascular malformation. Middle Cerebral Artery: Patent without significant stenosis, aneurysm, or vascular malformation. Posterior Cerebral Artery: Patent without significant stenosis, aneurysm, or vascular malformation. Posterior Communicating Artery: Patent. No aneurysm. CENTRAL: Anterior Communicating Artery: Patent. No aneurysm. Basilar Artery: Patent without significant stenosis. No aneurysm. DURAL VENOUS SINUSES AND MAJOR CENTRAL VEINS: Patent. POST-CONTRAST HEAD: No abnormal enhancement. IMPRESSION: CT HEAD 1. No acute infarct, hemorrhage, mass, hydrocephalus, or abnormal postcontrast enhancement. 2. Mild to moderate white matter changes that appear chronic suggesting sequela of chronic small vessel ischemic disease. If there is clinical concern for acute stroke or symptoms persist an MR brain should be considered to evaluate for small or subtle pathology. CTA HEAD 1. No large vessel occlusion. 2. No intracranial aneurysm, stenosis, or vascular malformation. EXAM: CT ANGIOGRAM HEAD. CT SCAN OF THE HEAD WITHOUT AND WITH CONTRAST. EXAM DATE: 11/13/2017 12:47 PM CLINICAL HISTORY: Right weakness. COMPARISON: None. TECHNIQUE: 1. Noncontrast Head: Using a multidetector scanner, axial images were acquired from the foramen magnum to the skull vertex prior to contrast administration. 2. CTA Head and Neck: Using a multidetector scanner, high-resolution axial images were acquired from the skull base through the vertex following rapid infusion of intravenous contrast. Multiplanar MIP reformats were reconstructed. 3. Post-contrast head CT: 5 mm contiguous axial sections were obtained from the foramen magnum to vertex was following CT angiogram. Evaluation of stenosis performed by NASCET criteria. IV Contrast: 80 cc [id number] protocol optimization, one or more of the following dose reduction techniques were utilized for this exam: automated exposure control, adjustment of mA and/or KV based on patient size, or use of iterative reconstructive technique. FINDINGS: NON-CONTRAST HEAD: Parenchyma: No acute parenchymal hemorrhage, mass, or midline shift. There is mild to moderate bilateral areas of white matter hypoattenuation seen with more confluent areas seen within the left frontal left parietal lobes. These areas of white matter attenuation appear chronic. The supratentorial cortical mantle jackson-white differentiation appears distinct. Extra-axial Spaces: Normal. No extra-axial fluid collections or hemorrhage. Ventricles: Ventricles Orbits and Sinuses: Changes of bilateral lens replacement. Small bilateral maxillary mucosal retention cysts versus polyps. Small volume left mastoid effusion with trace right mastoid effusion. Middle ear cavities appear clear.. Extracranial Soft Tissues and Bones: Extracranial soft tissues are unremarkable. No fractures. Other: Vascular calcifications of the cavernous ICA segments. CT ANGIOGRAM HEAD : RIGHT: Internal Carotid Artery: Tortuosity of the distal cervical ICA. Vascular calcification of the cavernous ICA segment with no high-grade stenosis seen. No aneurysm. Vertebral Artery: Patent without significant stenosis. No evidence of dissection. Anterior Cerebral Artery: Patent without significant stenosis, aneurysm, or vascular malformation. Middle Cerebral Artery: Patent without significant stenosis, aneurysm, or vascular malformation. Posterior Cerebral Artery: Patent without significant stenosis, aneurysm, or vascular malformation. Posterior Communicating Artery: Patent. No aneurysm. LEFT: Internal Carotid Artery: Tortuosity of the distal cervical ICA. Vascular calcification of the cavernous ICA segment with no high-grade stenosis seen. No aneurysm. Vertebral Artery: Patent without significant stenosis. No evidence of dissection. Anterior Cerebral Artery: Patent without significant stenosis, aneurysm, or vascular malformation. Middle Cerebral Artery: Patent without significant stenosis, aneurysm, or vascular malformation. Posterior Cerebral Artery: Patent without significant stenosis, aneurysm, or vascular malformation. Posterior Communicating Artery: Patent. No aneurysm. CENTRAL: Anterior Communicating Artery: Patent. No aneurysm. Basilar Artery: Patent without significant stenosis. No aneurysm. DURAL VENOUS SINUSES AND MAJOR CENTRAL VEINS: Patent. POST-CONTRAST HEAD: No abnormal enhancement. IMPRESSION: CT HEAD 1. No acute infarct, hemorrhage, mass, hydrocephalus, or abnormal postcontrast enhancement. 2. Mild to moderate white matter changes that appear chronic suggesting sequela of chronic small vessel ischemic disease. If there is clinical concern for acute stroke or symptoms persist an MR brain should be considered to evaluate for small or subtle pathology. CTA HEAD 1. No large vessel occlusion. 2. No intracranial aneurysm, stenosis, or vascular malformation. EXAM: MRI BRAIN WITHOUT CONTRAST (LIMITED). EXAM DATE: 11/13/2017 06:05 PM. CLINICAL HISTORY: Right-sided weakness. COMPARISON: CT scan and CT angiogram of the head 11/13/2017. TECHNIQUE: Axial, diffusion/ADC map as well as T2 MR sequences of the brain were performed. The patient was unable to tolerate completion of the exam. Sequences optimized for limited evaluation. Other: None. IV Contrast: None. FINDINGS: (Study is limited by motion artifact). Brain Volume: Normal for age. Parenchyma/Dura: No evidence of restricted diffusion is seen to suggest acute infarct. On T2-weighted series, several cystic foci are noted in the john radiata and pericallosal region bilaterally. Cystic focus is seen in the left cerebellum. No intracranial mass is appreciated. Ventricles/Cisterns: No hydrocephalus. No abnormal extra-axial fluid collection or hemorrhage. Orbits: Grossly unremarkable. Sella Turcica: Grossly unremarkable. Probable partially empty sella turcica. IAC: Grossly unremarkable. Vasculature: Normal signal flow void is seen in the major arterial structures at the skull base. Sinuses: No acute appearing sinus disease. Poor pneumatization of inferior mastoid air cells is noted. Bones: No focal pathologic appearing marrow signal changes. Other: None. IMPRESSION: (Limited study. Only limited MR sequences could be obtained. Motion artifact is seen involving the series that are obtained.) 1. No restricted diffusion to suggest acute infarct. 2. Scattered cystic foci in the cerebral hemispheres and left cerebellum. Findings likely represent sequela of old lacunar infarct. EXAM: CHEST RADIOGRAPHY EXAM DATE: 11/14/2017 06:15 AM. CLINICAL HISTORY: Follow-up congestive heart failure. COMPARISON: 11/13/2017. TECHNIQUE: 1 view. FINDINGS: Lungs/Pleura: Asymmetric pulmonary opacities, right worse than left, increased compared with the prior exam. Small lung volumes. Minimal if any pleural fluid. No pneumothorax. Mediastinum: Moderate cardiomegaly. Aortic atherosclerosis. Other: None. IMPRESSION: 1. Small lung volumes with cardiomegaly and increased asymmetric pulmonary opacities, right worse than left. - FOLLOW UP Follow Up: Disposition: 06 Home Health Service Condition: Good Prescriptions: Apixaban [Eliquis] 10 mg PO BID #60 tablet Furosemide 40 mg PO DAILY #60 tablet Isosorbide Mononitrate ER [Imdur] 30 mg PO DAILY #60 tablet Metoprolol Succinate [Toprol Xl] 50 mg PO DAILY #60 tablet Nitrofurantoin [Macrobid] 100 mg PO BID 10 Days #10 capsule Nystatin [Nystop] 1 applic TOP BID #1 bottle Spironolactone [Aldactone] 25 mg PO DAILY #60 tablet Diet: Diabetic Activity Restrictions: Activity as Tolerated Shower Restrictions: No Driving Restrictions: No Assistance Devices: Wheelchair, Walker Weight Bearing: Full Weight Additional Instructions or Follow Up instructions: You had moderate right sided weakness and low oxygen when you arrived in the ER. Testing confirmed that you likely suffered a TIA (a mini stroke), and a small heart attack. We did a urine test that confirms a urinary tract infection. You need to take at least 5 more days of antibiotics. You also were found to have a heart arrhythmia called atrial fibrillation that may have caused your TIA. You need to be on a blood thinner to prevent a stroke. Please note new medications that will help your heart function improve and be the most efficient. Please see your PCP in one week. If you do not have a estimator, you should see one. Ask your PCP for a referral. Some cardiologists come to our [facility]. - TIME SPENT Time Spent in Discharge (Minutes): 45
[2017-11-15 11:32] VITALS: BP 130/76
[2017-11-15] MEDS ORDERED: METOPROLOL SUCCINATE 25 MG TABLET PO SCH (12:00)
== END 2017-11-15 13:20 | disposition home health service (06) | DRG 281 ==
LOC: EDUNIT# → ED 12:08 → OBS 14:11 → OBSVTOIN 11-14 06:41 → MS2 11-14 09:13
PROVIDERS: ADMIT Nurse Practitioner; ATTEND Nurse Practitioner
DX: M62.81 Muscle weakness (generalized) (principal); R06.00 Dyspnea, unspecified; I21.4 Non-ST elevation (NSTEMI) myocardial infarction; G45.1 Carotid artery syndrome (hemispheric); J43.9 Emphysema, unspecified; N28.9 Disorder of kidney and ureter, unspecified; F32.9 Major depressive disorder, single episode, unspecified; R29.700 NIHSS score 0; G45.9 Transient cerebral ischemic attack, unspecified; J96.11 Chronic respiratory failure with hypoxia; I48.1 Persistent atrial fibrillation; T83.518A Infection and inflammatory reaction due to other urinary catheter, initial encounter; R53.1 Weakness; R41.0 Disorientation, unspecified; R29.810 Facial weakness; E11.42 Type 2 diabetes mellitus with diabetic polyneuropathy; E66.01 Morbid (severe) obesity due to excess calories; Z68.38 Body mass index [BMI] 38.0-38.9, adult; G89.29 Other chronic pain; M54.9 Dorsalgia, unspecified; I25.10 Atherosclerotic heart disease of native coronary artery without angina pectoris; E78.5 Hyperlipidemia, unspecified; I11.0 Hypertensive heart disease with heart failure; I50.9 Heart failure, unspecified; E03.9 Hypothyroidism, unspecified; K21.9 Gastro-esophageal reflux disease without esophagitis; R32 Unspecified urinary incontinence; J32.9 Chronic sinusitis, unspecified; H91.90 Unspecified hearing loss, unspecified ear; Z66 Do not resuscitate; Z99.81 Dependence on supplemental oxygen; Z79.4 Long term (current) use of insulin; Z79.899 Other long term (current) drug therapy; Z79.891 Long term (current) use of opiate analgesic; Z87.01 Personal history of pneumonia (recurrent); Z87.891 Personal history of nicotine dependence
CPT/HCPCS: 36415; 70450; 70496; 70551; 71045; 80048; 80053; 80061; 81001; 82550; 82553; 83036; 83690; 83721; 83735; 83880; 84439; 84443; 84484; 85025; 87086; 93005; 93306; 94640; 96361; 96365; 96372; 96375; 96376; 99284; 99285

== ENCOUNTER 2018-01-19 06:02 | Emergency (ER) | payer MEDICARE, OTHER ==
--- NOTE | 2018-01-19 06:29 | ED Physician Documentation ---
PD HPI FEMALE - Stated complaint Stated Complaint: FEMALE - Chief complaint Chief Complaint: General - History obtained from History obtained from: Patient - History of Present Illness Timing - onset: Today Timing - details: Abrupt onset (she had chronic roldan changed today and was having some urine come out around the roldan and was uncomfortable, then had roldan come out with balloon partly inflated.) Associated symptoms: Other (roldan came out). No: Fever, Abdominal pain Similar symptoms before: Has not had sx before Recently seen: Other (home [facility] nurse today, replaced the roldan.) Review of Systems Constitutional: denies: Fever, Chills Nose: denies: Rhinorrhea / runny nose, Congestion Throat: denies: Sore throat Respiratory: denies: Cough GI: denies: Abdominal Pain, Nausea, Vomiting, Diarrhea : reports: Hematuria Musculoskeletal: denies: Neck pain, Back pain PD PAST MEDICAL HISTORY - Past Medical History Past Medical History: Yes Cardiovascular: Congestive heart failure Respiratory: Emphysema Neuro: TIA, Peripheral neuropathy Endocrine/Autoimmune: Type 2 diabetes, HyPOthyroidism GI: GERD, Hemorrhoids : Incontinence, Indwelling catheter HEENT: Chronic sinusitis, Chronic hearing loss Psych: Depression Musculoskeletal: Chronic back pain Derm: Other - Past Surgical History Past Surgical History: Yes 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 - Present Medications Home Medications: Ambulatory Orders Medication Instructions Recorded Confirmed Atorvastatin Calcium 40 mg PO DAILY 11/13/17 11/13/17 Bisacodyl [Dulcolax] 10 mg PO DAILY 11/13/17 11/13/17 HYDROcod/ACETAM 5/325 [[place] 5/325] 0.5 - 1 tab PO 0800,1600,2100 PRN 11/13/17 11/13/17 Insulin NPH Hum/Reg Insulin Hm 16 units SUBQ 0730 11/13/17 11/13/17 [Novolin 70-30 100 Unit/ml Vial] Insulin NPH Hum/Reg Insulin Hm 18 units SUBQ QPM 11/13/17 11/13/17 [Novolin 70-30 100 Unit/ml Vial] Levothyroxine Sodium [Synthroid] 200 mcg PO QDAC 11/13/17 11/13/17 Zinc 50 mg PO 1600 11/13/17 11/13/17 diphenhydrAMINE [Benadryl] 50 mg PO QPM 11/13/17 11/13/17 metFORMIN [Glucophage] 500 mg PO BIDWM 11/13/17 11/13/17 traMADol [Ultram] 50 mg PO 0800,1600 11/13/17 11/13/17 Apixaban [Eliquis] 10 mg PO BID #60 tablet 11/15/17 Furosemide 40 mg PO DAILY #60 tablet 11/15/17 Isosorbide Mononitrate ER [Imdur] 30 mg PO DAILY #60 tablet 11/15/17 Metoprolol Succinate [Toprol Xl] 50 mg PO DAILY #60 tablet 11/15/17 Nitrofurantoin [Macrobid] 100 mg PO BID 10 Days #10 capsule 11/15/17 Nystatin [Nystop] 1 applic TOP BID #1 bottle 11/15/17 Spironolactone [Aldactone] 25 mg PO DAILY #60 tablet 11/15/17 Cephalexin [Keflex] 500 mg PO TID #21 capsule 01/19/18 - Allergies Allergies/Adverse Reactions: Allergies Allergy/AdvReac Type Severity Reaction Status Date / Time No Known Drug Allergies Allergy Verified 01/19/18 06:25 - Social History Does the pt smoke?: No Smoking Status: Never smoker Does the pt drink ETOH?: No Does the pt have substance abuse?: No - Immunizations Immunizations are current?: Yes - POLST Patient has POLST: Yes POLST Status: DNR PD ED PE NORMAL - Vitals Vital signs reviewed: Yes - General General: Alert and oriented X 3, No acute distress, Well developed/nourished - Cardiac Cardiac: RRR, No murmur - Respiratory Respiratory: Clear bilaterally - Abdomen Abdomen: Soft, Non tender - Female Female : Other (no external rash and nusre reports no vaginal discharge when place roldan) Results - Vitals Vitals: Oxygen O2 Source Nasal cannula - Labs Labs: Microbiology 01/19/18 06:40 Urine Culture - Final Urine,Clean Catch Klebsiella Pneumoniae Laboratory Tests 01/19/18 06:40 Urine Color YELLOW Urine Clarity CLOUDY Urine pH 5.0 Ur Specific [place] 1.020 Urine Protein NEGATIVE Urine Glucose (UA) NEGATIVE Urine Ketones NEGATIVE Urine Occult Blood NEGATIVE Urine Nitrite POSITIVE H Urine Bilirubin NEGATIVE Urine Urobilinogen 0.2 (NORMAL) Ur Leukocyte Esterase NEGATIVE Urine RBC 0-5 Urine WBC 6-10 H Ur Squamous Epith Cells FEW Squamous Urine Bacteria Many H Ur Microscopic Review INDICATED Urine Culture Comments INDICATED PD MEDICAL DECISION MAKING - ED course Complexity details: reviewed results (UA showing signs of infection too. ), re- evaluated patient (roldan placed by nursing and is working okay without discomfort. Will check urine for infection.), considered differential, d/w patient Departure - Departure Disposition: Home, Self Care Clinical Impression: Encounter for Roldan catheter replacement UTI (urinary tract infection) Qualifiers: Urinary tract infection type: acute cystitis Hematuria presence: without hematuria Qualified Code(s): N30.00 - Acute cystitis without hematuria Condition: Stable Record reviewed to determine appropriate education?: Yes Instructions: ED UTI Cystitis Female Follow-Up: Jose Luis Metcalf MD [Primary Care Provider] - Prescriptions: Cephalexin [Keflex] 500 mg PO TID #21 capsule Comments: Cephalexin 3 times a day for a week. We will get the culture results in 2-3 days to verify if this is a correct antibiotic. Drink lots of fluids. Usual Roldan catheter care. Discharge Date/Time: 01/19/18 07:51
[2018-01-19 06:55] LABS: BILIRUBIN,URINE NEGATIVE (NEGATIVE); GLUCOSE, URINE (UA) NEGATIVE (NEGATIVE); KETONES,URINE (UA) NEGATIVE (NEGATIVE); LEUKOCYTE ESTERASE, URINE NEGATIVE (NEGATIVE); NITRITE,URINE POSITIVE (NEGATIVE); OCCULT BLOOD,URINE NEGATIVE (NEGATIVE); PROTEIN,URINE NEGATIVE (NEGATIVE); UROBILINOGEN,URINE 0.2 (NORMAL) E.U./dL (NORMAL)
[2018-01-19 07:05] LABS: CLARITY,URINE CLOUDY (CLEAR)
[2018-01-19 07:06] LABS: RBC,URINE 0-5 /HPF (0-5)
[2018-01-19 07:07] LABS: BACTERIA,URINE Many /HPF (None Seen); SQUAMOUS EPITHELIAL CELL,UR FEW Squamous (<= Few)
[2018-01-19] MEDS ORDERED: cephALEXin 250 MG CAPSULE PO STA (07:15)
[2018-01-19 07:45] VITALS: BP 102/52
== END 2018-01-19 07:51 | disposition home or self-care (01) ==
LOC: ED 06:02
DX: Z46.82 Encounter for fitting and adjustment of non-vascular catheter (principal); N30.00 Acute cystitis without hematuria; E11.42 Type 2 diabetes mellitus with diabetic polyneuropathy; E03.9 Hypothyroidism, unspecified; Z86.73 Personal history of transient ischemic attack (TIA), and cerebral infarction without residual deficits; Z79.4 Long term (current) use of insulin
CPT/HCPCS: 51702; 81001; 87077; 87086; 87181; 99283; A9270; 81003

== ENCOUNTER 2018-05-19 11:05 | Emergency (ER) | payer MEDICARE, OTHER ==
[2018-05-19 12:10] LABS: BILIRUBIN,URINE NEGATIVE (NEGATIVE); GLUCOSE, URINE (UA) NEGATIVE (NEGATIVE); KETONES,URINE (UA) NEGATIVE (NEGATIVE); LEUKOCYTE ESTERASE, URINE NEGATIVE (NEGATIVE); NITRITE,URINE NEGATIVE (NEGATIVE); OCCULT BLOOD,URINE TRACE-INTA (NEGATIVE); PROTEIN,URINE NEGATIVE (NEGATIVE); UROBILINOGEN,URINE 0.2 (NORMAL) E.U./dL (NORMAL)
[2018-05-19 12:11] LABS: CLARITY,URINE CLEAR (CLEAR)
--- NOTE | 2018-05-19 12:52 | XRAY Report ---
Procedure Date: 05/19/2018 Accession Number: [id number] / [id number] Procedure: XR - Chest 1 View X-Ray CPT Code: 82291 FULL RESULT: EXAM: CHEST RADIOGRAPHY EXAM DATE: 05/19/2018 12:37 PM. CLINICAL HISTORY: Cough. COMPARISON: 11/14/2017. TECHNIQUE: Semiupright AP view. FINDINGS: Lungs/Pleura: Low lung volumes. Lungs clear accounting for mild bronchovascular crowding. No focal consolidation, interstitial abnormality, gross pneumothorax, or gross pleural fluid. Mediastinum: As before, mild cardiomegaly which is accentuated by low lung volumes and projection. Mild tortuosity of the descending thoracic aorta. Other: None. IMPRESSION: Lungs clear accounting for low lung volumes. RADIA
[2018-05-19 12:56] LABS: BASOPHILS # (AUTO) 0.1 10^3/uL (0.0-0.1); BASOPHILS % (AUTO) 1.3 %; EOSINOPHILS # (AUTO) 0.1 10^3/uL (0.0-0.7); EOSINOPHILS % (AUTO) 1.7 %; LYMPHOCYTES # (AUTO) 1.3 10^3/uL (1.5-3.5); LYMPHOCYTES % (AUTO) 18.2 %; MEAN CORPUSCULAR HEMOGLOBIN 24.5 pg (27.0-31.0); MEAN CORPUSCULAR HGB CONC 30.5 g/dL (32.0-36.0); MEAN CORPUSCULAR VOLUME 80.2 fL (81.0-99.0); MEAN PLATELET VOLUME 7.4 fL (7.9-10.8); MONOCYTES # (AUTO) 0.8 10^3/uL (0.0-1.0); NEUTROPHILS # (AUTO) 4.6 10^3/uL (1.5-6.6); NEUTROPHILS % (AUTO) 66.8 %; PLT - PLATELET COUNT 253 10^3/uL (130-450); RED BLOOD COUNT 3.25 10^6/uL (4.20-5.40); RED CELL DISTRIBUTION WIDTH 17.2 % (12.0-15.0); WHITE BLOOD COUNT 6.9 x10^3/uL (4.8-10.8)
[2018-05-19 13:09] LABS: ALBUMIN 3.6 g/dL (3.2-5.5); ALBUMIN/GLOBULIN RATIO 0.9 (1.0-2.2); ALKALINE PHOSPHATASE 76 IU/L (42-121); ALT ALANINE AMINOTRANSFERASE < 10 IU/L (10-60); AST ASPARTATE AMINOTRANSFERASE 11 IU/L (10-42); BILIRUBIN,TOTAL 0.3 mg/dL (0.2-1.0); BUN - BLOOD UREA NITROGEN 36 mg/dL (6-20); CALCIUM 8.7 mg/dL (8.5-10.3); CARBON DIOXIDE - CO2 31 mmol/L (21-32); CHLORIDE 102 mmol/L (101-111); CREATININE 1.5 mg/dL (0.4-1.0); GFR - MDRD 34 (>89); GLUCOSE 103 mg/dL (70-100); LIPASE 19 U/L (22-51); SODIUM 140 mmol/L (135-145); TOTAL PROTEIN 7.4 g/dL (6.7-8.2)
--- NOTE | 2018-05-19 13:33 | ED Physician Documentation ---
History of Present Illness - Stated complaint Stated Complaint: SOA - Chief complaint Chief Complaint: Neuro - History obtained from History obtained from: Patient, Family (daughter) - History of Present Illness Timing: How many days ago (several) Pain level max: 0 Pain level now: 0 Improved by: nothing Worsened by: nothing - Additonal information Additional information: Patient states that for the past several days she is "not been feeling good". Denies any fevers or chills. States she has had a dry cough. No vomiting. No abdominal pain. Has a Roldan catheter in place which has not been changed for approximately 4-5 months. Noted dark stools a couple of days ago, but none today. She is on Xarelto. Is currently on her baseline home O2 Review of Systems Ten Systems: 10 systems reviewed and negative Constitutional: denies: Fever, Chills Eyes: denies: Decreased vision Ears: denies: Ear pain Nose: denies: Rhinorrhea / runny nose, Congestion Throat: denies: Sore throat Cardiac: denies: Chest pain / pressure Respiratory: reports: Dyspnea (states feels short of breath with exertion), Cough (dry) GI: denies: Abdominal Pain, Nausea, Vomiting, Diarrhea : reports: Incontinent (uses a chornic roldan) Skin: denies: Rash Musculoskeletal: denies: Neck pain, Back pain Neurologic: denies: Focal weakness, Numbness, Headache PD PAST MEDICAL HISTORY - Past Medical History Cardiovascular: Congestive heart failure Respiratory: Emphysema Endocrine/Autoimmune: Type 2 diabetes, HyPOthyroidism GI: GERD, Hemorrhoids : Incontinence, Indwelling catheter HEENT: Chronic sinusitis, Chronic hearing loss Psych: Depression Musculoskeletal: Chronic back pain Derm: Other - Past Surgical History Past Surgical History: Yes 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: Hysterectomy - Present Medications Home Medications: Ambulatory Orders Medication Instructions Recorded Confirmed Atorvastatin Calcium 40 mg PO DAILY 11/13/17 11/13/17 Bisacodyl [Dulcolax] 10 mg PO DAILY 11/13/17 11/13/17 HYDROcod/ACETAM 5/325 [[place] 5/325] 0.5 - 1 tab PO 0800,1600,2100 PRN 11/13/17 11/13/17 Insulin NPH Hum/Reg Insulin Hm 16 units SUBQ 0730 11/13/17 11/13/17 [Novolin 70-30 100 Unit/ml Vial] Insulin NPH Hum/Reg Insulin Hm 18 units SUBQ QPM 11/13/17 11/13/17 [Novolin 70-30 100 Unit/ml Vial] Levothyroxine Sodium [Synthroid] 200 mcg PO QDAC 11/13/17 11/13/17 Zinc 50 mg PO 1600 11/13/17 11/13/17 diphenhydrAMINE [Benadryl] 50 mg PO QPM 11/13/17 11/13/17 metFORMIN [Glucophage] 500 mg PO BIDWM 11/13/17 11/13/17 traMADol [Ultram] 50 mg PO 0800,1600 11/13/17 11/13/17 Apixaban [Eliquis] 10 mg PO BID #60 tablet 11/15/17 Furosemide 40 mg PO DAILY #60 tablet 11/15/17 Isosorbide Mononitrate ER [Imdur] 30 mg PO DAILY #60 tablet 11/15/17 Metoprolol Succinate [Toprol Xl] 50 mg PO DAILY #60 tablet 11/15/17 Nitrofurantoin [Macrobid] 100 mg PO BID 10 Days #10 capsule 11/15/17 Nystatin [Nystop] 1 applic TOP BID #1 bottle 11/15/17 Spironolactone [Aldactone] 25 mg PO DAILY #60 tablet 11/15/17 Cephalexin [Keflex] 500 mg PO TID #21 capsule 01/19/18 - Allergies Allergies/Adverse Reactions: Allergies Allergy/AdvReac Type Severity Reaction Status Date / Time No Known Drug Allergies Allergy Verified 05/19/18 11:17 - Social History Does the pt smoke?: No Smoking Status: Never smoker Does the pt drink ETOH?: No Does the pt have substance abuse?: No - Immunizations Immunizations are current?: Yes - POLST Patient has POLST: Yes POLST Status: DNR PD ED PE NORMAL - Vitals Vital signs reviewed: Yes - General General: Alert and oriented X 3, No acute distress, Other (obese female) - HEENT HEENT: PERRL, Moist mucous membranes - Neck Neck: Supple, no meningeal sign - Cardiac Cardiac: RRR, Strong equal pulses - Respiratory Respiratory: No respiratory distress, Clear bilaterally - Abdomen Abdomen: Soft, Non tender - Rectal Rectal: Other (sacral skin irritation, no open sores. normal rectal. hemoccult negative QC passed) - Derm Derm: Warm and dry, No rash - Extremities Extremities: No calf tenderness / cord - Neuro Neuro: Alert and oriented X 3 Results - Vitals Vitals: Vital Signs - 24 hr 05/19/18 05/19/18 05/19/18 11:11 13:32 14:05 Temperature 36.3 C L Heart Rate 80 81 80 Respiratory 20 19 18 Rate Blood Pressure 137/63 H 151/79 H 159/63 H O2 Saturation 100 100 98 05/19/18 15:36 Temperature Heart Rate 92 Respiratory 16 Rate Blood Pressure 157/76 H O2 Saturation 99 Oxygen O2 Source Nasal cannula Oxygen Flow Rate 4 - EKG (time done) 1117 Rate: Rate (enter#) (78) Rhythm: NSR [place]: Normal Intervals: Normal CA QRS: Normal Ischemia: Normal ST segments - Labs Labs: Laboratory Tests 05/19/18 05/19/18 05/19/18 11:55 12:50 12:50 WBC 6.9 RBC 3.25 L Hgb 8.0 L Hct 26.0 L MCV 80.2 L MCH 24.5 L MCHC 30.5 L RDW 17.2 H Plt Count 253 MPV 7.4 L Neut # (Auto) 4.6 Lymph # (Auto) 1.3 L [place] # (Auto) 0.8 Eos # (Auto) 0.1 Baso # (Auto) 0.1 Absolute Nucleated RBC 0.01 Nucleated RBC % 0.1 Sodium 140 Potassium 4.9 Chloride 102 Carbon Dioxide 31 Anion Gap 7.0 BUN 36 H Creatinine 1.5 H Estimated GFR (MDRD) 34 L Glucose 103 H Calcium 8.7 Phosphorus Magnesium Total Bilirubin 0.3 AST 11 ALT < 10 L Alkaline Phosphatase 76 Troponin I Total Protein 7.4 Albumin 3.6 Globulin 3.8 Albumin/Globulin Ratio 0.9 L Lipase 19 L Urine Color YELLOW Urine Clarity CLEAR Urine pH 6.0 Ur Specific [place] 1.015 Urine Protein NEGATIVE Urine Glucose (UA) NEGATIVE Urine Ketones NEGATIVE Urine Occult Blood TRACE-INTA Urine Nitrite NEGATIVE Urine Bilirubin NEGATIVE Urine Urobilinogen 0.2 (NORMAL) Ur Leukocyte Esterase NEGATIVE Ur Microscopic Review NOT INDICATED Urine Culture Comments NOT INDICATED 05/19/18 05/19/18 12:50 12:50 WBC RBC Hgb Hct MCV MCH MCHC RDW Plt Count MPV Neut # (Auto) Lymph # (Auto) [place] # (Auto) Eos # (Auto) Baso # (Auto) Absolute Nucleated RBC Nucleated RBC % Sodium Potassium Chloride Carbon Dioxide Anion Gap BUN Creatinine Estimated GFR (MDRD) Glucose Calcium Phosphorus 3.0 Magnesium 1.7 Total Bilirubin AST ALT Alkaline Phosphatase Troponin I < 0.04 Total Protein Albumin Globulin Albumin/Globulin Ratio Lipase Urine Color Urine Clarity Urine pH Ur Specific [place] Urine Protein Urine Glucose (UA) Urine Ketones Urine Occult Blood Urine Nitrite Urine Bilirubin Urine Urobilinogen Ur Leukocyte Esterase Ur Microscopic Review Urine Culture Comments - Rads (name of study) cxr Radiology: Prelim report reviewed, EMP read contemporaneously, See rad report ( no acute disease) PD MEDICAL DECISION MAKING - ED course Complexity details: reviewed results, re-evaluated patient, considered differential, d/w patient, d/w family ED course: Patient is a 73-year-old female who appears to have worsening anemia, have on her was 10.7 in November of this year. She is now down to 8. Her rectal exam does not show any GI bleed. She is on Xarelto. While in the emergency department she had a run of ventricular tachycardia, approximately 15 beats. She was asymptomatic through this. I discussed the case with Dr. Galvan, hospitalist here who recommends transfer to facility with cardiology. Discussed the case with Dr. Jalil Walls, hospitalist at [facility] who graciously accepts in transfer. 1528. Patient was also given magnesium in the emergency department, 2 g IV. No recurrent V. tach while in the emergency department. This document was made in part using voice recognition software. While efforts are made to proofread this document, sound alike and grammatical errors may occur. - Sepsis Event Vital Signs: Vital Signs - 24 hr 05/19/18 05/19/18 05/19/18 11:11 13:32 14:05 Temperature 36.3 C L Heart Rate 80 81 80 Respiratory 20 19 18 Rate Blood Pressure 137/63 H 151/79 H 159/63 H O2 Saturation 100 100 98 05/19/18 15:36 Temperature Heart Rate 92 Respiratory 16 Rate Blood Pressure 157/76 H O2 Saturation 99 Oxygen O2 Source Nasal cannula Oxygen Flow Rate 4 Departure - Departure Disposition: 02 Transfer Acute Care Hosp Clinical Impression: Ventricular tachycardia, Symptomatic anemia, Encounter for Roldan catheter replacement Dyspnea Qualifiers: Dyspnea type: unspecified Qualified Code(s): R06.00 - Dyspnea, unspecified Condition: Stable Discharge Date/Time: 05/19/18 17:15
[2018-05-19 14:41] LABS: MAGNESIUM 1.7 mg/dL (1.7-2.8)
[2018-05-19] MEDS ORDERED: MAGNESIUM SULFATE 2 GRAM 2 GM/50 ML BAG IV ONE (14:50)
[2018-05-19 15:37] VITALS: BP 157/76
== END 2018-05-19 17:15 | disposition short-term general hospital (02) ==
LOC: EDUNIT# → ED 11:05 → SUPCPDRO 11:05 → ED 17:15
DX: I47.2 Ventricular tachycardia (principal); D64.89 Other specified anemias; R06.00 Dyspnea, unspecified; Z46.6 Encounter for fitting and adjustment of urinary device; E11.9 Type 2 diabetes mellitus without complications; Z79.4 Long term (current) use of insulin; E03.9 Hypothyroidism, unspecified; Z79.01 Long term (current) use of anticoagulants
CPT/HCPCS: 36415; 51702; 71045; 80053; 81001; 81003; 83690; 83735; 84100; 84484; 85025; 87086; 93005; 96365; 99284; 99285

== ENCOUNTER 2018-05-19 15:26 | Outpatient (CLI) | payer MEDICARE, OTHER | END 2018-05-19 15:27 | disposition critical access hospital (66) | LOC: EMS 15:26 | PROVIDERS: ATTEND Surgery | DX: R06.02 Shortness of breath (principal); R53.1 Weakness; R82.90 Unspecified abnormal findings in urine | CPT/HCPCS: A0425; A0427 ==

== ENCOUNTER 2018-06-07 17:46 | Outpatient (CLI) | payer MEDICARE, OTHER | END 2018-06-07 17:47 | disposition critical access hospital (66) | LOC: EMS 17:46 | PROVIDERS: ATTEND Surgery | DX: S51.012A Laceration without foreign body of left elbow, initial encounter (principal); W18.39XA Other fall on same level, initial encounter; Y92.031 Bathroom in apartment as the place of occurrence of the external cause | CPT/HCPCS: A0425; A0429 ==

== ENCOUNTER 2018-06-07 18:08 | Emergency (ER) | payer MEDICARE, OTHER ==
--- NOTE | 2018-06-07 18:49 | ED Physician Documentation ---
History of Present Illness - Stated complaint Stated Complaint: GLF - Chief complaint Chief Complaint: Ext Problem - History obtained from History obtained from: Patient, EMS - History of Present Illness Timing: Today Pain level max: 0 Pain level now: 0 Improved by: nothing Worsened by: nothing - Additonal information Additional information: slid on commode and skin tear to the L elbow. Patient has no other complaints at this time. Denies striking her head. No loss of consciousness. No vomiting. Family later arrived to the emergency department and stated that she has been more tired than usual today. She did have a very active day yesterday. No fevers. No cough. She does have an indwelling [place] catheter that was changed last week Review of Systems Ten Systems: 10 systems reviewed and negative Constitutional: denies: Fever, Chills Ears: denies: Ear pain Nose: denies: Rhinorrhea / runny nose, Congestion Throat: denies: Sore throat Cardiac: denies: Chest pain / pressure Respiratory: denies: Cough GI: denies: Abdominal Pain, Vomiting, Diarrhea Skin: denies: Rash Musculoskeletal: denies: Neck pain, Back pain Neurologic: denies: Focal weakness, Numbness, Headache PD PAST MEDICAL HISTORY - Past Medical History Past Medical History: Yes Cardiovascular: Congestive heart failure Respiratory: Emphysema Endocrine/Autoimmune: Type 2 diabetes, HyPOthyroidism GI: GERD, Hemorrhoids : Incontinence, Indwelling catheter HEENT: Chronic sinusitis, Chronic hearing loss Psych: Depression Musculoskeletal: Chronic back pain Derm: Other - Past Surgical History Past Surgical History: Yes 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 - Present Medications Home Medications: Ambulatory Orders Medication Instructions Recorded Confirmed Atorvastatin Calcium 40 mg PO DAILY 11/13/17 11/13/17 Bisacodyl [Dulcolax] 10 mg PO DAILY 11/13/17 11/13/17 HYDROcod/ACETAM 5/325 [[place] 5/325] 0.5 - 1 tab PO 0800,1600,2100 PRN 11/13/17 11/13/17 Insulin NPH Hum/Reg Insulin Hm 16 units SUBQ 0730 11/13/17 11/13/17 [Novolin 70-30 100 Unit/ml Vial] Insulin NPH Hum/Reg Insulin Hm 18 units SUBQ QPM 11/13/17 11/13/17 [Novolin 70-30 100 Unit/ml Vial] Levothyroxine Sodium [Synthroid] 200 mcg PO QDAC 11/13/17 11/13/17 Zinc 50 mg PO 1600 11/13/17 11/13/17 diphenhydrAMINE [Benadryl] 50 mg PO QPM 11/13/17 11/13/17 metFORMIN [Glucophage] 500 mg PO BIDWM 11/13/17 11/13/17 traMADol [Ultram] 50 mg PO 0800,1600 11/13/17 11/13/17 Apixaban [Eliquis] 10 mg PO BID #60 tablet 11/15/17 Furosemide 40 mg PO DAILY #60 tablet 11/15/17 Isosorbide Mononitrate ER [Imdur] 30 mg PO DAILY #60 tablet 11/15/17 Metoprolol Succinate [Toprol Xl] 50 mg PO DAILY #60 tablet 11/15/17 Nitrofurantoin [Macrobid] 100 mg PO BID 10 Days #10 capsule 11/15/17 Nystatin [Nystop] 1 applic TOP BID #1 bottle 11/15/17 Spironolactone [Aldactone] 25 mg PO DAILY #60 tablet 11/15/17 Cephalexin [Keflex] 500 mg PO TID #21 capsule 01/19/18 Cefdinir 300 mg PO BID #28 capsule 06/07/18 - Allergies Allergies/Adverse Reactions: Allergies Allergy/AdvReac Type Severity Reaction Status Date / Time No Known Drug Allergies Allergy Verified 06/07/18 18:12 - Social History Does the pt smoke?: No Smoking Status: Never smoker Does the pt drink ETOH?: No Does the pt have substance abuse?: No - Immunizations Immunizations are current?: Yes - POLST Patient has POLST: Yes POLST Status: DNR PD ED PE NORMAL - Vitals Vital signs reviewed: Yes - General General: No acute distress, Well developed/nourished, Other (Drowsy but easily arousable. Answers questions appropriately) - HEENT HEENT: Atraumatic, PERRL, Ears normal, Moist mucous membranes, Pharynx benign - Neck Neck: Supple, no meningeal sign, No bony TTP - Cardiac Cardiac: RRR, Strong equal pulses - Respiratory Respiratory: No respiratory distress, Clear bilaterally - Abdomen Abdomen: Soft, Non tender, Non distended - Back Back: No CVA TTP, No spinal TTP - Derm Derm: Warm and dry, No rash - Extremities Extremities: No deformity, Other (Superficial skin tears to the left elbow. No bony tenderness. Full range of motion without pain) - Neuro Neuro: No motor deficit, No sensory deficit - Psych Psych: Normal mood Results - Vitals Vitals: Vital Signs - 24 hr 06/07/18 06/07/18 18:09 20:10 Temperature 36.6 C Heart Rate 86 83 Respiratory 22 22 Rate Blood Pressure 140/75 H 156/75 H O2 Saturation 100 96 Oxygen O2 Source Nasal cannula - Labs Labs: Laboratory Tests 06/07/18 06/07/18 06/07/18 19:18 19:18 19:33 WBC 8.1 RBC 3.83 L Hgb 9.8 L Hct 32.2 L MCV 84.0 MCH 25.5 L MCHC 30.4 L RDW 18.8 H Plt Count 268 MPV 8.5 Neut # (Auto) 6.3 Lymph # (Auto) 0.9 L [place] # (Auto) 0.7 Eos # (Auto) 0.1 Baso # (Auto) 0.1 Absolute Nucleated RBC 0.00 Nucleated RBC % 0.0 Sodium 139 Potassium 4.9 Chloride 99 L Carbon Dioxide 31 Anion Gap 9.0 BUN 33 H Creatinine 1.7 H Estimated GFR (MDRD) 29 L Glucose 142 H Calcium 8.5 Total Bilirubin 0.4 AST 12 ALT < 10 L Alkaline Phosphatase 70 Total Protein 7.4 Albumin 3.8 Globulin 3.6 Albumin/Globulin Ratio 1.1 Lipase 26 Urine Color LT. YELLOW Urine Clarity CLOUDY Urine pH 6.5 Ur Specific [place] 1.010 Urine Protein TRACE Urine Glucose (UA) NEGATIVE Urine Ketones NEGATIVE Urine Occult Blood MODERATE H Urine Nitrite POSITIVE H Urine Bilirubin NEGATIVE Urine Urobilinogen 0.2 (NORMAL) Ur Leukocyte Esterase MODERATE H Urine RBC 6-10 H Urine WBC 6-10 H Ur Squamous Epith Cells RARE Squamous Amorphous Sediment Marked Urine Bacteria Moderate H Ur Microscopic Review INDICATED Urine Culture Comments INDICATED PD MEDICAL DECISION MAKING - ED course Complexity details: reviewed results, re-evaluated patient, considered differential, d/w patient, d/w family ED course: Patient with no acute laboratory findings to explain her increased drowsiness today. Does have a UTI, but has an indwelling catheter and this may just be colonization. As it is a new catheter and she does have symptoms of altered mental status, will treat with antibiotics. Skin tears were repaired with Steri- Strips. Patient and family counseled regarding signs and symptoms for which I believe and urgent re-evaluation would be necessary. Patient with good understanding of and agreement to plan and is comfortable going home at this time This document was made in part using voice recognition software. While efforts are made to proofread this document, sound alike and grammatical errors may occur. - Sepsis Event Vital Signs: Vital Signs - 24 hr 06/07/18 06/07/18 18:09 20:10 Temperature 36.6 C Heart Rate 86 83 Respiratory 22 22 Rate Blood Pressure 140/75 H 156/75 H O2 Saturation 100 96 Oxygen O2 Source Nasal cannula Departure - Departure Disposition: 01 Home, Self Care Clinical Impression: Skin tear UTI (urinary tract infection) Qualifiers: Urinary tract infection type: acute cystitis Hematuria presence: without hematuria Qualified Code(s): N30.00 - Acute cystitis without hematuria Condition: Good Instructions: ED UTI Cystitis Female, ED Wound Care Follow-Up: Jose Luis Metcalf MD [Primary Care Provider] - Within 1 week Prescriptions: Cefdinir 300 mg PO BID #28 capsule Comments: Keep the wound clean. Follow-up with Dr. Metcalf within 1 week for a wound check. Return if you worsen. Take all antibiotics until gone. Discharge Date/Time: 06/07/18 20:52
[2018-06-07 19:36] LABS: BASOPHILS # (AUTO) 0.1 10^3/uL (0.0-0.1); EOSINOPHILS # (AUTO) 0.1 10^3/uL (0.0-0.7); EOSINOPHILS % (AUTO) 1.3 %; HGB - HEMOGLOBIN 9.8 g/dL (12.0-16.0); LYMPHOCYTES # (AUTO) 0.9 10^3/uL (1.5-3.5); LYMPHOCYTES % (AUTO) 11.2 %; MEAN CORPUSCULAR HEMOGLOBIN 25.5 pg (27.0-31.0); MEAN CORPUSCULAR HGB CONC 30.4 g/dL (32.0-36.0); MEAN PLATELET VOLUME 8.5 fL (7.9-10.8); MONOCYTES # (AUTO) 0.7 10^3/uL (0.0-1.0); MONOCYTES % (AUTO) 8.3 %; NEUTROPHILS # (AUTO) 6.3 10^3/uL (1.5-6.6); NEUTROPHILS % (AUTO) 78.2 %; PLT - PLATELET COUNT 268 10^3/uL (130-450); RED BLOOD COUNT 3.83 10^6/uL (4.20-5.40); RED CELL DISTRIBUTION WIDTH 18.8 % (12.0-15.0); WHITE BLOOD COUNT 8.1 x10^3/uL (4.8-10.8)
[2018-06-07 19:38] LABS: ALBUMIN 3.8 g/dL (3.2-5.5); ALBUMIN/GLOBULIN RATIO 1.1 (1.0-2.2); ALKALINE PHOSPHATASE 70 IU/L (42-121); ALT ALANINE AMINOTRANSFERASE < 10 IU/L (10-60); AST ASPARTATE AMINOTRANSFERASE 12 IU/L (10-42); BILIRUBIN,TOTAL 0.4 mg/dL (0.2-1.0); BUN - BLOOD UREA NITROGEN 33 mg/dL (6-20); CALCIUM 8.5 mg/dL (8.5-10.3); CARBON DIOXIDE - CO2 31 mmol/L (21-32); CHLORIDE 99 mmol/L (101-111); CREATININE 1.7 mg/dL (0.4-1.0); GFR - MDRD 29 (>89); GLUCOSE 142 mg/dL (70-100); LIPASE 26 U/L (22-51); SODIUM 139 mmol/L (135-145); TOTAL PROTEIN 7.4 g/dL (6.7-8.2)
[2018-06-07 19:40] LABS: BILIRUBIN,URINE NEGATIVE (NEGATIVE); GLUCOSE, URINE (UA) NEGATIVE (NEGATIVE); KETONES,URINE (UA) NEGATIVE (NEGATIVE); LEUKOCYTE ESTERASE, URINE MODERATE (NEGATIVE); NITRITE,URINE POSITIVE (NEGATIVE); OCCULT BLOOD,URINE MODERATE (NEGATIVE); PH,URINE 6.5 PH (5.0-7.5); PROTEIN,URINE TRACE mg/dL (NEGATIVE); UROBILINOGEN,URINE 0.2 (NORMAL) E.U./dL (NORMAL)
[2018-06-07 19:51] LABS: CLARITY,URINE CLOUDY (CLEAR)
[2018-06-07 19:52] LABS: AMORPHOUS SEDIMENT,UR Marked /LPF; BACTERIA,URINE Moderate /HPF (None Seen); SQUAMOUS EPITHELIAL CELL,UR RARE Squamous (<= Few)
[2018-06-07 20:11] VITALS: BP 156/75
[2018-06-07] MEDS ORDERED: cefTRIAXone 1 GM VIAL IM STA (20:19)
[2018-06-07] MEDS ORDERED: LIDOCAINE 1% 2 ML VIAL SUBQ ONE (20:19)
== END 2018-06-07 20:52 | disposition home or self-care (01) ==
LOC: ED 18:08
DX: S51.012A Laceration without foreign body of left elbow, initial encounter (principal); W01.0XXA Fall on same level from slipping, tripping and stumbling without subsequent striking against object, initial encounter; N30.00 Acute cystitis without hematuria; Z96.0 Presence of urogenital implants; E11.9 Type 2 diabetes mellitus without complications; Z79.4 Long term (current) use of insulin; E03.9 Hypothyroidism, unspecified
CPT/HCPCS: 36415; 80053; 81001; 81003; 83690; 85025; 87086; 96372; 99283

== ENCOUNTER 2018-08-15 12:24 | Outpatient (CLI) | payer MEDICARE, OTHER | END 2018-08-15 12:25 | disposition critical access hospital (66) | LOC: EMS 12:24 | PROVIDERS: ATTEND Surgery | DX: R53.1 Weakness (principal); R53.83 Other fatigue | CPT/HCPCS: A0425; A0429 ==

== ENCOUNTER 2018-08-15 12:39 | Emergency (ER) | payer MEDICARE, OTHER ==
[2018-08-15 14:34] LABS: BASOPHILS % (AUTO) 0.6 %; EOSINOPHILS # (AUTO) 0.1 10^3/uL (0.0-0.7); EOSINOPHILS % (AUTO) 1.5 %; HGB - HEMOGLOBIN 10.4 g/dL (12.0-16.0); LYMPHOCYTES % (AUTO) 14.7 %; MEAN CORPUSCULAR HEMOGLOBIN 28.7 pg (27.0-31.0); MEAN CORPUSCULAR HGB CONC 31.8 g/dL (32.0-36.0); MEAN CORPUSCULAR VOLUME 90.3 fL (81.0-99.0); MEAN PLATELET VOLUME 7.6 fL (7.9-10.8); MONOCYTES # (AUTO) 0.7 10^3/uL (0.0-1.0); MONOCYTES % (AUTO) 10.8 %; NEUTROPHILS # (AUTO) 4.9 10^3/uL (1.5-6.6); NEUTROPHILS % (AUTO) 72.4 %; PLT - PLATELET COUNT 187 10^3/uL (130-450); RED BLOOD COUNT 3.63 10^6/uL (4.20-5.40); RED CELL DISTRIBUTION WIDTH 17.2 % (12.0-15.0); WHITE BLOOD COUNT 6.7 x10^3/uL (4.8-10.8)
[2018-08-15 14:40] LABS: BILIRUBIN,URINE NEGATIVE (NEGATIVE); GLUCOSE, URINE (UA) NEGATIVE (NEGATIVE); KETONES,URINE (UA) NEGATIVE (NEGATIVE); LEUKOCYTE ESTERASE, URINE LARGE (NEGATIVE); NITRITE,URINE NEGATIVE (NEGATIVE); OCCULT BLOOD,URINE NEGATIVE (NEGATIVE); PROTEIN,URINE NEGATIVE (NEGATIVE); UROBILINOGEN,URINE 0.2 (NORMAL) E.U./dL (NORMAL)
--- NOTE | 2018-08-15 14:40 | XRAY Report ---
Reason: chest pain Procedure Date: 08/15/2018 Accession Number: [id number] / [id number] Procedure: XR - Chest 1 View X-Ray CPT Code: 22915 FULL RESULT: EXAM: CHEST RADIOGRAPHY EXAM DATE: 08/15/2018 02:16 PM. CLINICAL HISTORY: Chest pain. The patient has a history of congestive heart failure. COMPARISON: 05/19/2018. TECHNIQUE: 1 view. FINDINGS: Lungs/Pleura: Symmetric low lung volumes. Stable linear areas of parenchymal scarring in the left midlung, left lung base and right lung base, and stable small amount of pleural fluid or pleural thickening involving the minor fissure. No pneumothorax. No pulmonary vascular congestion or interstitial edema. No other focal opacities are evident. Mediastinum: Stable mild cardiomegaly, accentuated secondary to low lung volumes. Tortuous thoracic aorta with arteriosclerosis. Other: Decreased bone mineralization. IMPRESSION: 1. Chronic linear areas of parenchymal scarring or atelectasis in the left midlung and both lung bases. 2. Small amount of pleural fluid or pleural thickening involving the minor fissure. 3. Stable cardiomegaly and tortuous thoracic aorta. 4. No pulmonary vascular congestion or interstitial edema. RADIA
[2018-08-15 14:43] LABS: CLARITY,URINE HAZY (CLEAR)
[2018-08-15 14:44] LABS: CALCIUM 8.8 mg/dL (8.5-10.3); CREATININE 1.5 mg/dL (0.4-1.0)
[2018-08-15 14:48] LABS: RBC,URINE 0-5 /HPF (0-5); SQUAMOUS EPITHELIAL CELL,UR NONE SEEN (<= Few)
[2018-08-15 14:49] LABS: AMORPHOUS SEDIMENT,UR Few /LPF; BACTERIA,URINE Many /HPF (None Seen)
--- NOTE | 2018-08-15 15:27 | ED Physician Documentation ---
PD HPI ALTERED MENTAL STATUS - Stated complaint Stated Complaint: WEAKNESS - Chief complaint Chief Complaint: Neuro - History obtained from History obtained from: Patient, Family - History of Present Illness Timing - onset: How many days ago (3) Timing - details: Gradual onset, Intermittant Quality / character: Confused. No: Less responsive, Unresponsive, Agitated, Combative, Hallucinating Associated symptoms: Urinary sx (Foul-smelling urine from Roldan catheter and bag. Roldan catheter has not been changed since June when she was in the halfway), General weakness. No: Fever, Headache, Stiff neck, Cough, NVD, Focal weakness Contributing factors: Diabetic, Other (chronic roldan cath) Basline status: Alert and oriented X 3, Walker, Wheelchair Similar symptoms before: Diagnosis (Anemia, UTI) Recently seen: Not recently seen - Additional information Additional information: 72-year-old female with history of diabetes, CHF, COPD on 3 L nasal cannula continuously and chronic Roldan catheter for the past year and a half here with daughter who stated patient seems to be a little bit more confused than usual the other day and patient stated she felt slightly weak and shaky the past 3 days. Denies any fever, cough, nausea vomiting or diarrhea. But, they did notice that her urine smelled. Denies any trauma, travel or sick contact. Review of Systems Ten Systems: 10 systems reviewed and negative Constitutional: denies: Fever, Chills, Myalgias Eyes: denies: Discharge Nose: denies: Rhinorrhea / runny nose, Congestion Cardiac: denies: Chest pain / pressure Respiratory: denies: Dyspnea, Cough GI: denies: Abdominal Pain : reports: Other (Foul-smelling urine from the Roldan bag). denies: Dysuria, Hematuria, Discharge Skin: denies: Rash Neurologic: reports: Generalized weakness, Confused. 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 SERVER ON CALL: None : Incontinence, Indwelling catheter HEENT: Chronic sinusitis, Chronic hearing loss Psych: Depression Musculoskeletal: Chronic back pain Derm: Other - Past Surgical History Past Surgical History: Yes General: Cholecystectomy /BANQUET SERVER ON CALL: Hysterectomy - Present Medications Home Medications: Ambulatory Orders Medication Instructions Recorded Confirmed Atorvastatin Calcium 40 mg PO DAILY 11/13/17 11/13/17 Bisacodyl [Dulcolax] 10 mg PO DAILY 11/13/17 11/13/17 HYDROcod/ACETAM 5/325 [[place] 5/325] 0.5 - 1 tab PO 0800,1600,2100 PRN 11/13/17 11/13/17 Insulin NPH Hum/Reg Insulin Hm 16 units SUBQ 0730 11/13/17 11/13/17 [Novolin 70-30 100 Unit/ml Vial] Insulin NPH Hum/Reg Insulin Hm 18 units SUBQ QPM 11/13/17 11/13/17 [Novolin 70-30 100 Unit/ml Vial] Levothyroxine Sodium [Synthroid] 200 mcg PO QDAC 11/13/17 11/13/17 Zinc 50 mg PO 1600 11/13/17 11/13/17 diphenhydrAMINE [Benadryl] 50 mg PO QPM 11/13/17 11/13/17 metFORMIN [Glucophage] 500 mg PO BIDWM 11/13/17 11/13/17 traMADol [Ultram] 50 mg PO 0800,1600 11/13/17 11/13/17 Apixaban [Eliquis] 10 mg PO BID #60 tablet 11/15/17 Furosemide 40 mg PO DAILY #60 tablet 11/15/17 Isosorbide Mononitrate ER [Imdur] 30 mg PO DAILY #60 tablet 11/15/17 Metoprolol Succinate [Toprol Xl] 50 mg PO DAILY #60 tablet 11/15/17 Nitrofurantoin [Macrobid] 100 mg PO BID 10 Days #10 capsule 11/15/17 Nystatin [Nystop] 1 applic TOP BID #1 bottle 11/15/17 Spironolactone [Aldactone] 25 mg PO DAILY #60 tablet 11/15/17 Cephalexin [Keflex] 500 mg PO TID #21 capsule 01/19/18 Cefdinir 300 mg PO BID #28 capsule 06/07/18 Cephalexin [Keflex] 500 mg PO Q8HR #21 capsule 08/15/18 - Allergies Allergies/Adverse Reactions: Allergies Allergy/AdvReac Type Severity Reaction Status Date / Time No Known Drug Allergies Allergy Verified 06/07/18 18:12 - Social History Does the pt smoke?: No Smoking Status: Former smoker Does the pt drink ETOH?: No Does the pt have substance abuse?: No - Immunizations Immunizations are current?: Yes - POLST Patient has POLST: Yes POLST Status: DNR PD ED PE NORMAL - Vitals Vital signs reviewed: Yes - General General: Alert and oriented X 3, No acute distress, Well developed/nourished - HEENT HEENT: PERRL, EOMI - Neck Neck: Supple, no meningeal sign - Cardiac Cardiac: RRR, No murmur - Respiratory Respiratory: No respiratory distress, Clear bilaterally - Abdomen Abdomen: Normal bowel sounds, Soft, Non tender, Non distended - Female Female : Other (Roldan cath draining dark luisa ntonio urine in good amounts but urine was foul-smelling.) - Back Back: No CVA TTP, No spinal TTP - Derm Derm: Normal color, Warm and dry, No rash - Extremities Extremities: No deformity, No tenderness to palpate - Neuro Neuro: Alert and oriented X 3 - Psych Psych: Normal mood, Normal affect Results - Vitals Vitals: Vital Signs - 24 hr 08/15/18 08/15/18 08/15/18 12:49 13:04 15:13 Temperature 35.9 C L Heart Rate 84 86 86 Respiratory 20 20 16 Rate Blood Pressure 151/83 H 147/72 H 136/70 H O2 Saturation 91 L 92 93 08/15/18 15:52 Temperature Heart Rate 87 Respiratory 20 Rate Blood Pressure 143/71 H O2 Saturation 95 Oxygen O2 Source Nasal cannula Oxygen Flow Rate 4 - EKG (time done) 1423 Rate: Rate (enter#) Rhythm: NSR Harrison: LAD Intervals: Normal CO QRS: Normal Ischemia: Normal ST segments - Labs Labs: Laboratory Tests 08/15/18 08/15/18 08/15/18 14:30 14:30 14:30 WBC 6.7 RBC 3.63 L Hgb 10.4 L Hct 32.8 L MCV 90.3 MCH 28.7 MCHC 31.8 L RDW 17.2 H Plt Count 187 MPV 7.6 L Neut # (Auto) 4.9 Lymph # (Auto) 1.0 L [place] # (Auto) 0.7 Eos # (Auto) 0.1 Baso # (Auto) 0.0 Absolute Nucleated RBC 0.00 Nucleated RBC % 0.0 Sodium 139 Potassium 4.6 Chloride 94 L Carbon Dioxide 38 H Anion Gap 7.0 BUN 37 H Creatinine 1.5 H Estimated GFR (MDRD) 34 L Glucose 128 H Calcium 8.8 Troponin I < 0.04 B-Natriuretic Peptide Urine Color Urine Clarity Urine pH Ur Specific [place] Urine Protein Urine Glucose (UA) Urine Ketones Urine Occult Blood Urine Nitrite Urine Bilirubin Urine Urobilinogen Ur Leukocyte Esterase Urine RBC Urine WBC Ur Squamous Epith Cells Amorphous Sediment Urine Bacteria Ur Microscopic Review Urine Culture Comments 08/15/18 08/15/18 14:30 14:30 WBC RBC Hgb Hct MCV MCH MCHC RDW Plt Count MPV Neut # (Auto) Lymph # (Auto) [place] # (Auto) Eos # (Auto) Baso # (Auto) Absolute Nucleated RBC Nucleated RBC % Sodium Potassium Chloride Carbon Dioxide Anion Gap BUN Creatinine Estimated GFR (MDRD) Glucose Calcium Troponin I B-Natriuretic Peptide 86 Urine Color YELLOW Urine Clarity HAZY Urine pH 8.0 H Ur Specific [place] 1.015 Urine Protein NEGATIVE Urine Glucose (UA) NEGATIVE Urine Ketones NEGATIVE Urine Occult Blood NEGATIVE Urine Nitrite NEGATIVE Urine Bilirubin NEGATIVE Urine Urobilinogen 0.2 (NORMAL) Ur Leukocyte Esterase LARGE H Urine RBC 0-5 Urine WBC 6-10 H Ur Squamous Epith Cells NONE SEEN Amorphous Sediment Few Urine Bacteria Many H Ur Microscopic Review INDICATED Urine Culture Comments INDICATED PD MEDICAL DECISION MAKING - ED course Complexity details: re-evaluated patient (Patient in no acute distress and nontoxic appearing. Tolerated Rocephin and Roldan cath change today. Wants to go home. We will discharged on Keflex. Will follow up with PCP for reevaluation and urology), considered differential (UTI, urosepsis, pneumonia, anemia, COPD), d/w patient (Patient and daughter inform of positive UTI. Agreed to changing Roldan catheter and treating with antibiotics.), d/w family (Patient's daughter updated on test results and agreed with plan of treatment.) Departure - Departure Disposition: 01 Home, Self Care Clinical Impression: Urinary catheter (Roldan) change required UTI (urinary tract infection) Qualifiers: Urinary tract infection type: acute cystitis Hematuria presence: without hematuria Qualified Code(s): N30.00 - Acute cystitis without hematuria Condition: Stable Instructions: ED UTI Cystitis Female Follow-Up: Jose Luis eMtcalf MD [Primary Care Provider] - Within 1 week Prescriptions: Cephalexin [Keflex] 500 mg PO Q8HR #21 capsule Comments: DRINK 6 GLASSES OF WATER A DAY. TAKE THE ANTIBIOTIC PRESCRIBED. URINE CULTURES ARE PENDING. FOLLOW UP W/ YOUR PCP FOR REEVALUATION AND UROLOGY REFERRAL. IF WORSE RETURN TO THE E.R.
[2018-08-15] MEDS: cefTRIAXone 1 GM in SODIUM CHLORIDE 0.9% MINIBAG 100 ML IV STA (15:39)
[2018-08-15 16:58] VITALS: BP 173/71
== END 2018-08-15 16:50 | disposition home or self-care (01) ==
LOC: EDUNIT# → ED 12:39
DX: N30.00 Acute cystitis without hematuria (principal); Z46.6 Encounter for fitting and adjustment of urinary device; E11.9 Type 2 diabetes mellitus without complications; Z79.4 Long term (current) use of insulin; I11.0 Hypertensive heart disease with heart failure; I50.9 Heart failure, unspecified; J44.9 Chronic obstructive pulmonary disease, unspecified; E03.9 Hypothyroidism, unspecified; Z87.891 Personal history of nicotine dependence
CPT/HCPCS: 36415; 51702; 71045; 80048; 81001; 81003; 83880; 84484; 85025; 87077; 87086; 87181; 93005; 96365; 99283

== ENCOUNTER 2018-08-31 17:20 | Outpatient (CLI) | payer MEDICARE, OTHER | END 2018-08-31 17:21 | disposition critical access hospital (66) | LOC: EMS 17:20 | PROVIDERS: ATTEND Surgery | DX: R53.1 Weakness (principal); R50.9 Fever, unspecified; R09.89 Other specified symptoms and signs involving the circulatory and respiratory systems; R41.0 Disorientation, unspecified | CPT/HCPCS: A0425; A0429 ==

== ENCOUNTER 2018-08-31 17:36 | Inpatient (IN) | payer MEDICARE, OTHER ==
--- NOTE | 2018-08-31 17:49 | ED Physician Documentation ---
PD HPI DYSPNEA - Stated complaint Stated Complaint: WEAKNESS - History obtained from History obtained from: EMS - History of Present Illness Timing - onset: Other (Initially most of the history is from the paramedics as the patient seems fairly delirious and altered. She has a several day hx of weakness, cough, And low pulse oximetry. Also reported a low-grade fever. Per the paramedics she normally has normal mental status but clearly does not today. She is on home oxygen. 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: None : Incontinence, Indwelling catheter HEENT: Chronic sinusitis, Chronic hearing loss Psych: Depression Musculoskeletal: Chronic back pain Derm: Other - Past Surgical History Past Surgical History: Yes General: Cholecystectomy /GROCERY PACKER: Hysterectomy - Present Medications Home Medications: Ambulatory Orders Medication Instructions Recorded Confirmed RX: Atorvastatin Calcium 40 mg PO DAILY 11/13/17 11/13/17 RX: HYDROcod/ACETAM 5/325 [Driver 0.5 - 1 tab PO 0800,1600,2100 PRN 11/13/17 11/13/17 5/325] RX: Insulin NPH Hum/Reg Insulin Hm 16 units SUBQ 0730 11/13/17 11/13/17 [Novolin 70-30 100 Unit/ml Vial] RX: Insulin NPH Hum/Reg Insulin Hm 18 units SUBQ QPM 11/13/17 11/13/17 [Novolin 70-30 100 Unit/ml Vial] RX: Levothyroxine Sodium 200 mcg PO QDAC 11/13/17 11/13/17 [Synthroid] RX: diphenhydrAMINE [Benadryl] 50 mg PO QPM 11/13/17 11/13/17 RX: metFORMIN [Glucophage] 500 mg PO BIDWM 11/13/17 11/13/17 RX: Furosemide 40 mg PO DAILY #60 tablet 11/15/17 RX: Isosorbide Mononitrate ER 30 mg PO DAILY #60 tablet 11/15/17 [Imdur] RX: Metoprolol Succinate [Toprol 50 mg PO DAILY #60 tablet 11/15/17 Xl] RX: Nystatin [Nystop] 1 applic TOP BID #1 bottle 11/15/17 RX: Spironolactone [Aldactone] 25 mg PO DAILY #60 tablet 11/15/17 RX: Omeprazole 20 mg PO 08/31/18 Rivaroxaban [Xarelto] 15 mg PO DAILY 08/31/18 08/31/18 - Allergies Allergies/Adverse Reactions: Allergies Allergy/AdvReac Type Severity Reaction Status Date / Time No Known Drug Allergies Allergy Verified 08/31/18 17:51 - Social History Does the pt smoke?: No Smoking Status: Former smoker Does the pt drink ETOH?: No Does the pt have substance abuse?: No - Immunizations Immunizations are current?: Yes - POLST Patient has POLST: Yes POLST Status: DNR PD ED PE NORMAL - Vitals Vital signs reviewed: Yes - General General: Other (She is alert and oriented to person only. When asked her where she is she is able to come up with [place] but not the hospital.) - HEENT HEENT: PERRL, EOMI - Neck Neck: Supple, no meningeal sign, No bony TTP - Cardiac Cardiac: RRR, No murmur - Respiratory Respiratory: Other (Very rhonchorous at both bases) - Abdomen Abdomen: Normal bowel sounds, Soft, Non tender - Female Female : Other (Chronic Blanco in place, urine in the bag is clear) - Back Back: No CVA TTP, No spinal TTP - Derm Derm: Normal color, Warm and dry - Extremities Extremities: No edema, No calf tenderness / cord - Neuro Neuro: shipping lead 2-12 intact. No: Alert and oriented X 3 Eye Opening: Spontaneous Motor: Obeys Commands Verbal: Confused GCS Score: 14 Results - Vitals Vitals: Vital Signs - 24 hr 08/31/18 17:38 Temperature 36.4 C L Heart Rate 84 Respiratory 20 Rate Blood Pressure 111/86 H O2 Saturation 96 Oxygen O2 Source Nasal cannula - EKG (time done) 1813 Rate: Rate (enter#) (85) Rhythm: NSR [place]: Normal Intervals: Normal CO Ischemia: Non specific changes (Sub-millimeter anterior ST elevation) Computer interpretation: Agree with computer - Labs Labs: Laboratory Tests 08/31/18 08/31/18 08/31/18 18:05 18:05 18:05 WBC 8.1 RBC 3.42 L Hgb 10.0 L Hct 32.1 L MCV 93.7 MCH 29.1 MCHC 31.1 L RDW 15.8 H Plt Count 191 MPV 8.1 Neut # (Auto) 6.0 Lymph # (Auto) 1.1 L [place] # (Auto) 0.7 Eos # (Auto) 0.3 Baso # (Auto) 0.1 Absolute Nucleated RBC 0.00 Nucleated RBC % 0.0 Sodium 139 Potassium 5.6 H Chloride 100 L Carbon Dioxide 33 H Anion Gap 6.0 BUN 31 H Creatinine 1.5 H Estimated GFR (MDRD) 34 L Glucose 112 H Lactic Acid Calcium 8.8 Total Bilirubin 0.5 AST 16 ALT < 10 L Alkaline Phosphatase 71 Troponin I < 0.04 B-Natriuretic Peptide Total Protein 7.4 Albumin 3.9 Globulin 3.5 Albumin/Globulin Ratio 1.1 Lipase 24 Urine Color Urine Clarity Urine pH Ur Specific [place] Urine Protein Urine Glucose (UA) Urine Ketones Urine Occult Blood Urine Nitrite Urine Bilirubin Urine Urobilinogen Ur Leukocyte Esterase Ur Microscopic Review Urine Culture Comments Influenza A (Rapid) Influenza B (Rapid) 08/31/18 08/31/18 08/31/18 18:05 18:05 18:17 WBC RBC Hgb Hct MCV MCH MCHC RDW Plt Count MPV Neut # (Auto) Lymph # (Auto) [place] # (Auto) Eos # (Auto) Baso # (Auto) Absolute Nucleated RBC Nucleated RBC % Sodium Potassium Chloride Carbon Dioxide Anion Gap BUN Creatinine Estimated GFR (MDRD) Glucose Lactic Acid 1.1 Calcium Total Bilirubin AST ALT Alkaline Phosphatase Troponin I B-Natriuretic Peptide 216 H Total Protein Albumin Globulin Albumin/Globulin Ratio Lipase Urine Color Urine Clarity Urine pH Ur Specific [place] Urine Protein Urine Glucose (UA) Urine Ketones Urine Occult Blood Urine Nitrite Urine Bilirubin Urine Urobilinogen Ur Leukocyte Esterase Ur Microscopic Review Urine Culture Comments Influenza A (Rapid) Negative Influenza B (Rapid) Negative 08/31/18 19:40 WBC RBC Hgb Hct MCV MCH MCHC RDW Plt Count MPV Neut # (Auto) Lymph # (Auto) [place] # (Auto) Eos # (Auto) Baso # (Auto) Absolute Nucleated RBC Nucleated RBC % Sodium Potassium Chloride Carbon Dioxide Anion Gap BUN Creatinine Estimated GFR (MDRD) Glucose Lactic Acid Calcium Total Bilirubin AST ALT Alkaline Phosphatase Troponin I B-Natriuretic Peptide Total Protein Albumin Globulin Albumin/Globulin Ratio Lipase Urine Color YELLOW Urine Clarity CLEAR Urine pH 5.5 Ur Specific [place] 1.015 Urine Protein NEGATIVE Urine Glucose (UA) NEGATIVE Urine Ketones NEGATIVE Urine Occult Blood NEGATIVE Urine Nitrite NEGATIVE Urine Bilirubin NEGATIVE Urine Urobilinogen 0.2 (NORMAL) Ur Leukocyte Esterase NEGATIVE Ur Microscopic Review NOT INDICATED Urine Culture Comments NOT INDICATED Influenza A (Rapid) Influenza B (Rapid) - Rads (name of study) 1v chest Radiology: EMP read contemporaneously (IMPRESSION: Right midlung linear opacities, could be a small amount of fluid in the right fissure versus atelectasis, appears mildly increased. Mild right base linear opacities are increased. Left midlung linear opacity, mildly decreased. Mild left lower lung hazy opacity, unchanged. ) PD MEDICAL DECISION MAKING - ED course ED course: 73-year-old woman presents with cough, increasing oxygen requirements, terrible sounding lungs and now delirium with low-grade fevers. Seems like the source would be pulmonary but no clear infiltrate on chest x-ray. The remainder of her workup shows mild contraction alkalosis with mild hyperkalemia for which she is given a cautious fluid bolus in the setting of chronic CHF. She appears euvolemic to slightly hypovolemic on my examination. We will obtain a urine, but despite the soft x-ray read I believe the source is still pulmonary. We will give her Rocephin. Spoke with Dr. Messina for admission at 7:36 PM. Departure - Departure Disposition: 66 [facility] DC/Xfer Clinical Impression: Dyspnea Qualifiers: Dyspnea type: shortness of breath Qualified Code(s): R06.02 - Shortness of breath Altered mental status Qualifiers: Altered mental status type: delirium Qualified Code(s): R41.0 - Disorientation, unspecified Condition: Serious Discharge Date/Time: 08/31/18 21:15
[2018-08-31 18:16] LABS: BASOPHILS # (AUTO) 0.1 10^3/uL (0.0-0.1); BASOPHILS % (AUTO) 0.8 %; EOSINOPHILS # (AUTO) 0.3 10^3/uL (0.0-0.7); EOSINOPHILS % (AUTO) 3.1 %; LYMPHOCYTES # (AUTO) 1.1 10^3/uL (1.5-3.5); LYMPHOCYTES % (AUTO) 13.1 %; MEAN CORPUSCULAR HEMOGLOBIN 29.1 pg (27.0-31.0); MEAN CORPUSCULAR HGB CONC 31.1 g/dL (32.0-36.0); MEAN CORPUSCULAR VOLUME 93.7 fL (81.0-99.0); MEAN PLATELET VOLUME 8.1 fL (7.9-10.8); MONOCYTES # (AUTO) 0.7 10^3/uL (0.0-1.0); MONOCYTES % (AUTO) 8.9 %; NEUTROPHILS % (AUTO) 74.1 %; PLT - PLATELET COUNT 191 10^3/uL (130-450); RED BLOOD COUNT 3.42 10^6/uL (4.20-5.40); RED CELL DISTRIBUTION WIDTH 15.8 % (12.0-15.0); WHITE BLOOD COUNT 8.1 x10^3/uL (4.8-10.8)
[2018-08-31 18:29] LABS: ALBUMIN 3.9 g/dL (3.2-5.5); ALBUMIN/GLOBULIN RATIO 1.1 (1.0-2.2); ALKALINE PHOSPHATASE 71 IU/L (42-121); ALT ALANINE AMINOTRANSFERASE < 10 IU/L (10-60); AST ASPARTATE AMINOTRANSFERASE 16 IU/L (10-42); BILIRUBIN,TOTAL 0.5 mg/dL (0.2-1.0); BUN - BLOOD UREA NITROGEN 31 mg/dL (6-20); CALCIUM 8.8 mg/dL (8.5-10.3); CARBON DIOXIDE - CO2 33 mmol/L (21-32); CHLORIDE 100 mmol/L (101-111); CREATININE 1.5 mg/dL (0.4-1.0); GFR - MDRD 34 (>89); GLUCOSE 112 mg/dL (70-100); LIPASE 24 U/L (22-51); SODIUM 139 mmol/L (135-145); TOTAL PROTEIN 7.4 g/dL (6.7-8.2)
--- NOTE | 2018-08-31 19:05 | XRAY Report ---
Reason: cough Procedure Date: 08/31/2018 Accession Number: [id number] / [id number] Procedure: XR - Chest 1 View X-Ray CPT Code: 00525 FULL RESULT: EXAM: CHEST RADIOGRAPHY EXAM DATE: 08/31/2018 06:35 PM. CLINICAL HISTORY: Cough. COMPARISON: CHEST 1 VIEW 08/15/2018 2:04 PM. TECHNIQUE: 1 view. FINDINGS: Normal heart size. Right midlung linear opacities, could be a small amount of fluid in the right fissure versus atelectasis, appears mildly increased. Mild right base linear opacities are increased. Left midlung linear opacity, mildly decreased. Mild left lower lung hazy opacity, unchanged. No pleural effusion or pneumothorax. IMPRESSION: Right midlung linear opacities, could be a small amount of fluid in the right fissure versus atelectasis, appears mildly increased. Mild right base linear opacities are increased. Left midlung linear opacity, mildly decreased. Mild left lower lung hazy opacity, unchanged. RADIA
[2018-08-31] MEDS ORDERED: cefTRIAXone 1 GM in SODIUM CHLORIDE 0.9% MINIBAG 100 ML IV STA (19:28)
[2018-08-31] MEDS ORDERED: SODIUM CHLORIDE 0.9% 500 ML IV ONE (19:28)
[2018-08-31 19:51] LABS: BILIRUBIN,URINE NEGATIVE (NEGATIVE); GLUCOSE, URINE (UA) NEGATIVE (NEGATIVE); KETONES,URINE (UA) NEGATIVE (NEGATIVE); LEUKOCYTE ESTERASE, URINE NEGATIVE (NEGATIVE); NITRITE,URINE NEGATIVE (NEGATIVE); OCCULT BLOOD,URINE NEGATIVE (NEGATIVE); PH,URINE 5.5 PH (5.0-7.5); PROTEIN,URINE NEGATIVE (NEGATIVE); UROBILINOGEN,URINE 0.2 (NORMAL) E.U./dL (NORMAL)
[2018-08-31 20:06] LABS: CLARITY,URINE CLEAR (CLEAR)
[2018-08-31] MEDS ORDERED: PROCHLORPERAZINE 10 MG/2 ML VIAL IVP PRN (20:12)
[2018-08-31] MEDS ORDERED: MORPHINE 2 MG/ML CARPUJECT IVP PRN (20:12)
[2018-08-31] MEDS ORDERED: ACETAMINOPHEN 325 MG TABLET PO PRN (20:12)
[2018-08-31] MEDS ORDERED: ZOLPIDEM 5 MG TABLET PO PRN (20:12)
[2018-08-31] MEDS ORDERED: HYDROcod/ACETAM 5/325 MG TABLET PO PRN (20:12)
[2018-08-31] MEDS ORDERED: ONDANSETRON 4 MG/2 ML VIAL IVP PRN (20:12)
[2018-08-31 20:54] LABS: HB2 TOTAL 10.5 g/dL; HEMOGLOBIN A1C 0.44 g/dL
--- NOTE | 2018-08-31 21:26 | HISTORY & PHYSICAL EXAMINATION ---
Chief Complaint - Chief Complaint Chief Complaint: Shortness of breath and confusion History of Present Illness - Admitted From Admitted From:: Emergency department coming from home - History Obtained From Records Reviewed: Emergency department records and previous admissions History obtained from: Dr. Lawson, and patient's daughter. Exam Limitations: Patient is confused and unable to provide a reliable history, also patient - History of Present Illness HPI Comment/Other: This is a 73-year-old female with multiple comorbid medical conditions including history of CHF, type 2 diabetes, hypothyroidism, chronic pain, chronic indwelling Blanco catheter with recent urinary tract infection treated with antibiotics on August 15 who presents to the emergency room with a 1 day history of worsening shortness of breath, hypoxia, dyspnea, and confusion. Patient resides at home with her daughter who typically takes care of her and states that she normally requires 3 L of oxygen and today had to be turned up to 5 L of oxygen in order to maintain saturations above 90%. Also, since this morning the patient has been noted to be confused, and have a generalized weakness and decreased level of function compared to her baseline. For example her daughter had to feed her breakfast this morning which is not typical. Usua lly she is at least able to ambulate around the house with the assistance of a walker and she was unable to do that today primarily due to weakness. She denies any focal neurological deficits and the patient's daughter states that she has had episodes like this before typically when she gets sick either with an infection or CHF exacerbation and though she states this is a little bit worse than usual its otherwise fairly similar in its presentation. In the emergency room evaluation included chest x-ray which was fairly nondiagnostic, labs which showed a mild hyperkalemia, but no elevated white blood cell count or elevated lactic acid. Urinalysis was ordered but presumed to be contaminated due to the chronic indwelling Blanco catheter which has been in place for the last 2 weeks. She did have a mildly elevated BNP and was presumed to be in CHF exacerbation at which point I was called for admission into the hospital. Because of the potential for urinary tract infection as the etiology for her confusion, IV Rocephin was initiated in the emergency room after appropriate blood cultures and urine culture were obtained. History - Past Medical History Cardiovascular: reports: Congestive heart failure, Hypertension Respiratory: reports: COPD, Emphysema, Shortness of breath Neuro: reports: None Endocrine/Autoimmune: reports: Type 2 diabetes, HyPOthyroidism GI: reports: GERD, Hemorrhoids CERTIFIED SCRUM MASTER: reports: None : reports: Incontinence, Indwelling catheter HEENT: reports: Chronic sinusitis, Chronic hearing loss Psych: reports: Depression Musculoskeletal: reports: Chronic back pain Derm: reports: Other MRSA Hx?: No - Past Surgical History General: reports: Cholecystectomy /CERTIFIED SCRUM MASTER: reports: Hysterectomy - Family & Social History Family History: Mother: , Cancer, Father: , CAD, Diabetes, Type 2, Hypertension, Sister: , CAD, Cancer, Brother: , CAD Family History Comment/Other: Mother from an unknown type of cancer, father of CAD, HTN and he was diabetic, sister after complications of a CABG, another sister of cancer, a brother of CAD and patient has one sister who is alive and well. 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 She was for 32 years, but her about 4 years ago. She had 3 children, 3 girls and one boy. The boy at age 14 years. She raised her family in the state [facility]. Patient was a life-long smoker, but quit about 6 years ago after a really bad case of pneumonia. Patient denies alcohol, or other illicit drug use. She wishes to be a DNR. A long discussion about quality of life and possible upcom ing procedures in the event she would need a cardiac cath. Patient was clear about not wanting anything invasive that would prolong her life. - Substance History Use: Uses substance without health or social issues: NONE - POLST Patient has POLST: Yes POLST Status: DNR Meds/Allgy - Home Medications Home Medications: Ambulatory Orders Medication Instructions Recorded Confirmed Atorvastatin Calcium 40 mg PO DAILY 11/13/17 11/13/17 HYDROcod/ACETAM 5/325 [[place] 5/325] 0.5 - 1 tab PO 0800,1600,2100 PRN 11/13/17 11/13/17 Insulin NPH Hum/Reg Insulin Hm 16 units SUBQ 0730 11/13/17 11/13/17 [Novolin 70-30 100 Unit/ml Vial] Insulin NPH Hum/Reg Insulin Hm 18 units SUBQ QPM 11/13/17 11/13/17 [Novolin 70-30 100 Unit/ml Vial] Levothyroxine Sodium [Synthroid] 200 mcg PO QDAC 11/13/17 11/13/17 diphenhydrAMINE [Benadryl] 50 mg PO QPM 11/13/17 11/13/17 metFORMIN [Glucophage] 500 mg PO BIDWM 11/13/17 11/13/17 Furosemide 40 mg PO DAILY #60 tablet 11/15/17 Isosorbide Mononitrate ER [Imdur] 30 mg PO DAILY #60 tablet 11/15/17 Metoprolol Succinate [Toprol Xl] 50 mg PO DAILY #60 tablet 11/15/17 Nystatin [Nystop] 1 applic TOP BID #1 bottle 11/15/17 Spironolactone [Aldactone] 25 mg PO DAILY #60 tablet 11/15/17 Omeprazole 20 mg PO 08/31/18 Rivaroxaban [Xarelto] 15 mg PO DAILY 08/31/18 08/31/18 - Allergies Allergies/Adverse Reactions: Allergies Allergy/AdvReac Type Severity Reaction Status Date / Time No Known Drug Allergies Allergy Verified 08/31/18 17:51 Review of Systems - Constitutional Constitutional: reports: Fatigue, Fever, Chills, Diaphoresis - Cardiovascular Cariovascular: denies: Irregular heart rate, Palpitations, Chest pain - Respiratory Respiratory: reports: Orthopnea, SOB at rest, SOB with exertion. denies: Cough, Wheezing - Gastrointestinal Gastrointestinal: denies: Abdominal pain, Change in bowel habits - Genitourinary Genitourinary: denies: Dysuria - Musculoskeletal Musculoskeletal: reports: Muscle pain, Back pain - Integumentary Integumentary: denies: Rash - Neurological Neurological: reports: General weakness. denies: Focal weakness, Numbness, Seizures, Incoordination, Slurred speech - Psychiatric Psychiatric: reports: Depression, Delusions Prior Level of Functionality: Minimally ambulatory and home with the assistance of a walker, does not ambulate outside of the house Exam - Vital Signs Reviewed Vital Signs: Yes Vital Signs: Vital Signs x48h Temp Pulse Resp BP Pulse Ox 08/31/18 21:12 86 18 145/70 H 92 08/31/18 17:38 36.4 C L 84 20 111/86 H 96 - Physical Exam General Appearance: positive: No acute distress, Lethargic, Other (Somewhat confused) Eyes Bilateral: positive: Normal inspection ENT: positive: ENT inspection nml Neck: positive: Nml inspection, Thyroid nml, No JVD, Trachea midline Respiratory: positive: Other (Breath sounds are diminished due to poor patient efforts). negative: Wheezes, Rales, Rhonchi Cardiovascular: positive: Regular rate & rhythm Peripheral Pulses: positive: 2+ Abdomen: positive: Non-tender, No organomegaly, Nml bowel sounds, No distention Skin: positive: Color nml, No rash, Warm Extremities: positive: Non-tender, No pedal edema Neurologic/Psychiatric: positive: CN's nml (2-12), Motor nml, Sensation nml, Disoriented to place, Disoriented to time, Weakness. negative: Disoriented to person, Sensory loss, Facial droop, Slurred/abnml speech, Depressed mood/affect Sepsis Event Note (H) - Evaluation Current Stage of Sepsis: Ruled out Conclusion/Plan - Problem List (1) Altered mental status Conclusion/Plan: Patient is not at her baseline but does present in a way similar to previous episodes if not somewhat more exaggerated this time. Looking back in the chart there have been multiple recent hospital visits with generalized weakness and confusion related to CHF exacerbation or infection. I believe this current episode is the same. Given that there are no focal neurological deficits we will hold off on neuro diagnostic imaging at this point, also given that she is well beyond a TPA window if she did in fact have a stroke which is less likely. In the meantime, we will treat underlying problems with CHF exacerbation with increased diuresis and possible UTI with Rocephin pending results and follow clinical course.Given the recent hospitalizations, and poor medical status a palliative care consult may be appropriate during his hospital stay. Qualifiers: Altered mental status type: delirium Qualified Code(s): R41.0 - Disorientation, unspecified (2) Dyspnea Conclusion/Plan: Likely secondary to CHF exacerbation though there does not appear to be a si gnificant pleural effusion on the chest x-ray nor does she have impressive pedal edema. Her lungs do not sound wet although it is difficult to assess this given her habitus, and inability to cooperate with positioning for good pulmonary exam. She does however have a elevated BNP and her urine appears to be diluted so she may have some fluid overload not showing on the chest x-ray. In any case I will increase her furosemide, continue oxygen support and follow clinical course. Qualifiers: Dyspnea type: shortness of breath Qualified Code(s): R06.02 - Shortness of breath; R06.00 - Dyspnea, unspecified; R06.01 - Orthopnea (3) UTI (urinary tract infection) Conclusion/Plan: Given chronic indwelling Blanco catheter and recent UTI she would be considered high risk. This indicates need for IV antibiotics, which we will start with Rocephin and follow accordingly. Qualifiers: Urinary tract infection type: catheter-associated UTI Indwelling urinary catheter type: indwelling urethral catheter Encounter type: initial encounter Qualified Code(s): T83.511A - Infection and inflammatory reaction due to indwelling urethral catheter, initial encounter; N39.0 - Urinary tract infection, site not specified (4) Acute exacerbation of CHF (congestive heart failure) Conclusion/Plan: As above, increase 40 mg p.o. to 40 mg twice daily IV of Lasix. We will have to watch her renal function as her kidney function is not good with a GFR in the 30s and a creatinine of 1.5. Also, check daily weights if possible. Consider repeat chest x-ray if not improving.I was unable to find a echocardiogram in the chart so it is not clear to me her level of CHF but at this point I do not see an indication for a repeat echocardiogram unless she does not respond to treatment Qualifiers: Qualified Code(s): I50.9 - Heart failure, unspecified (5) Diabetes mellitus type 2 in obese Conclusion/Plan: Hold oral meds and initiate insulin sliding scale. (6) Anemia Conclusion/Plan: Normocytic anemia likely chronic possibly related to chronic kidney disease. Apparently this past summer she required transfer to [facility] and did get 2 units of blood for anemia that was not related to a GI bleeding source.Given the chronicity it is unlikely that her hemoglobin level of 10 is acute today however will follow up on repeat labs in the a.m. and if this is dropping we will start to pursue a source. Qualifiers: Anemia type: due to chronic kidney disease Chronic kidney disease stage: stage 3 (moderate) Qualified Code(s): N18.3 - Chronic kidney disease, stage 3 (moderate); D63.1 - Anemia in chronic kidney disease - Lab Results Lab results reviewed: Yes Fish Bones: 08/31/18 18:05 08/31/18 18:05 - Diagnostic Imaging Results Diagnostic Imaging Results: positive: Final report reviewed, Read independently - EKG Results EKG Interpreted Independently: Yes EKG Comparison: Unchanged from prior EKG Core Measures - Anticipated LOS I expect patient to be DC'd or transferred within 96 hours.: Yes - DVT/VTE - Prophylaxis VTE/DVT Device ordered at admit?: Yes
[2018-08-31] MEDS: INSULIN ASPART 300 UNIT/3 ML PEN SUBQ SCH (22:17)
[2018-08-31] MEDS: diphenhydrAMINE 25 MG CAPSULE PO SCH (22:24)
[2018-08-31] MEDS: FUROSEMIDE 40 MG/4 ML VIAL IVP SCH (22:24)
[2018-08-31] MEDS: NYSTATIN POWDER 15 GM TOP SCH (22:25)
[2018-08-31] MEDS: ZINC OXIDE 20% OINT 28.35 GM TUBE TOP PRN (22:26)
[2018-09-01] MEDS: SODIUM CHLORIDE FLUSH 0.9% 10 ML SYRINGE IVP SCH ×3 (00:48→17:18)
[2018-09-01] MEDS: FUROSEMIDE 40 MG/4 ML VIAL IVP SCH ×2 (06:20→13:17)
[2018-09-01] MEDS: SODIUM CHLORIDE FLUSH 0.9% 10 ML SYRINGE IVP PRN (06:20)
[2018-09-01] MEDS: LEVOTHYROXINE 100 MCG TABLET PO SCH (06:20)
[2018-09-01 06:38] LABS: HGB - HEMOGLOBIN 9.8 g/dL (12.0-16.0); MEAN CORPUSCULAR HEMOGLOBIN 28.7 pg (27.0-31.0); MEAN CORPUSCULAR HGB CONC 30.6 g/dL (32.0-36.0); MEAN CORPUSCULAR VOLUME 93.7 fL (81.0-99.0); MEAN PLATELET VOLUME 8.1 fL (7.9-10.8); RED BLOOD COUNT 3.4 10^6/uL (4.20-5.40); RED CELL DISTRIBUTION WIDTH 16.1 % (12.0-15.0); WHITE BLOOD COUNT 6.2 x10^3/uL (4.8-10.8)
[2018-09-01 06:46] LABS: CREATININE 1.5 mg/dL (0.4-1.0)
[2018-09-01] MEDS: SPIRONOLACTONE 25 MG TABLET PO SCH (08:26)
[2018-09-01] MEDS: ATORVASTATIN 40 MG TABLET PO SCH (08:26)
[2018-09-01] MEDS: ISOSORBIDE MONONITRATE ER 30 MG TABLET PO SCH (08:26)
[2018-09-01] MEDS: RIVAROXABAN 15 MG TABLET PO SCH (08:26)
[2018-09-01] MEDS: METOPROLOL SUCCINATE 50 MG TABLET PO SCH (08:26)
[2018-09-01] MEDS: NYSTATIN POWDER 15 GM TOP SCH ×2 (08:27→21:24)
[2018-09-01] MEDS: POLYETHYLENE GLYCOL 3350 17 GM PACKET PO SCH (08:27)
[2018-09-01] MEDS: INSULIN ASPART 300 UNIT/3 ML PEN SUBQ SCH ×4 (08:29→21:24)
[2018-09-01] MEDS ORDERED: FUROSEMIDE 40 MG TABLET PO SCH (09:00)
[2018-09-01] MEDS: INSULIN 70/30 HUMAN 100 UNIT/1 ML 10 ML MDV SUBQ SCH ×3 (09:00→21:21)
[2018-09-01] MEDS ORDERED: cefTRIAXone 2 GM in SODIUM CHLORIDE 0.9% MINIBAG 100 ML IV SCH (09:00)
[2018-09-01] MEDS: ZINC OXIDE 20% OINT 28.35 GM TUBE TOP PRN (12:10)
--- NOTE | 2018-09-01 15:35 | PROVIDER PROGRESS NOTE ---
Subjective - Prog Note Date Prog Note Date: 09/01/18 - Subjective Pt reports feeling: Improved Subjective: pt report she had water-like diarrhea for three times in hospital. Nurse send sample for pt. pt denies fever, chill, chest pain, shortness of breath, abdominal pain, nurse, vomiting. Current Medications - Current Medications Current Medications: Active Medications Acetaminophen (Tylenol) 650 mg PO Q4HR PRN PRN Reason: Pain 1 to 4 Last Admin: 09/01/18 01:40 Dose: 650 mg Hydrocodone Bitart/Acetaminophen ([place] 5/325) 1 tab PO Q4HR PRN PRN Reason: Pain 5 to 7 Atorvastatin Calcium (Lipitor) 40 mg PO DAILY [facility] Last Admin: 09/01/18 08:26 Dose: 40 mg Diphenhydramine HCl (Benadryl) 50 mg PO QPM [facility] Last Admin: 08/31/18 22:24 Dose: 50 mg Furosemide (Lasix Inj 40 Mg Vial) 40 mg IVP BIDDIURETIC [facility] Last Admin: 09/01/18 13:17 Dose: 40 mg Insulin Aspart (Novolog) 1 - 9 unit SUBQ 0800,1200,1700,2100 [facility]; Protocol Last Admin: 09/01/18 12:11 Dose: 1 unit Insulin Human Isoph/Insulin Regular (Novolin) 16 unit SUBQ 0730 [facility] Last Admin: 09/01/18 09:00 Dose: 16 unit Insulin Human Isoph/Insulin Regular (Novolin) 18 unit SUBQ QPM [facility] Last Admin: 09/01/18 10:05 Dose: Not Given Isosorbide Mononitrate (Imdur) 30 mg PO DAILY [facility] Last Admin: 09/01/18 08:26 Dose: 30 mg Levothyroxine Sodium (Synthroid) 200 mcg PO QDAC [facility] Last Admin: 09/01/18 06:20 Dose: 200 mcg Metoprolol Succinate (Toprol Xl) 50 mg PO DAILY [facility] Last Admin: 09/01/18 08:26 Dose: 50 mg Morphine Sulfate (Morphine (Carpuject)) 2 mg IVP Q3HR PRN PRN Reason: Pain 8 to 10 Multi-Ingredient Ointment (Zinc Oxide) 1 applic TOP PRN PRN PRN Reason: Skin Care Last Admin: 09/01/18 12:10 Dose: 1 applic Nystatin (Nystop) 1 applic TOP BID [facility] Last Admin: 09/01/18 08:27 Dose: 1 applic Ondansetron HCl (Zofran Inj) 4 mg IVP Q6HR PRN PRN Reason: Nausea / Vomiting Pantoprazole Sodium (Protonix) 40 mg PO QDAC [facility] Polyethylene Glycol (Miralax) 17 gm PO DAILY [facility] Last Admin: 09/01/18 08:27 Dose: 17 gm Prochlorperazine Edisylate (Compazine Inj) 10 mg IVP Q6HR PRN PRN Reason: Nausea / Vomiting Rivaroxaban (Xarelto) 15 mg PO DAILY [facility] Last Admin: 09/01/18 08:26 Dose: 15 mg Saccharomyces Boulardii (Florastor) 250 mg PO BIDWM [facility] Sodium Chloride (Normal Saline Flush 0.9%) 10 ml IVP PRN PRN PRN Reason: NEEDED PER PROVIDER ORDERS Last Admin: 09/01/18 06:20 Dose: 10 ml Sodium Chloride (Normal Saline Flush 0.9%) 10 ml IVP 0100,0900,1700 [facility] Last Admin: 09/01/18 08:27 Dose: 10 ml Spironolactone (Aldactone) 25 mg PO DAILY [facility] Last Admin: 09/01/18 08:26 Dose: 25 mg Zolpidem Tartrate (Ambien) 5 mg PO QPM PRN PRN Reason: Insomnia Atorvastatin Calcium 40 mg PO DAILY 11/13/17 HYDROcod/ACETAM 5/325 [Nekoma 5/325] 0.5 - 1 tab PO TID PRN 11/13/17 Insulin NPH Hum/Reg Insulin Hm [Novolin 70-30 100 Unit/ml Vial] 16 units SUBQ 0730 11/13/17 Insulin NPH Hum/Reg Insulin Hm [Novolin 70-30 100 Unit/ml Vial] 18 units SUBQ QPM 11/13/17 Levothyroxine Sodium [Synthroid] 200 mcg PO QDAC 11/13/17 diphenhydrAMINE [Benadryl] 50 mg PO QPM 11/13/17 metFORMIN [Glucophage] 500 mg PO BIDWM 11/13/17 Omeprazole 20 mg PO DAILY 08/31/18 Rivaroxaban [Xarelto] 15 mg PO DAILY 08/31/18 Objective - Vital Signs/Intake & Output Reviewed Vital Signs: Yes Vital Signs: Vital Signs x48h Temp Pulse Pulse Resp BP BP Pulse Ox 09/01/18 12:20 92 127/69 09/01/18 08:00 36.6 C 82 14 157/77 H 90 L Pulse Ox 09/01/18 12:20 94 09/01/18 08:00 Intake & Output: Intake & Output 08/29/18 08/30/18 08/31/18 09/01/18 23:59 23:59 23:59 23:59 Intake Total 600 420 Output Total 400 3050 Balance 200 -2630 - Objective General Appearance: positive: No acute distress, Alert. negative: Lethargic Eyes Bilateral: positive: Normal inspection, PERRL, No lid inflammation, Conjunctivae nml ENT: positive: ENT inspection nml, Pharynx nml, No signs of dehydration. negative: Purulent nasal drainage, Pharyngeal erythema, Oral lesions Neck: positive: Nml inspection, Thyroid nml, No JVD, Trachea midline. negative: Thyromegaly, Lymphadenopathy (R), Stiff neck, Swelling/bruising, Tracheal deviation Respiratory: positive: Chest non-tender, No respiratory distress, Breath sounds nml. negative: Wheezes, Rales, Rhonchi Cardiovascular: positive: Regular rate & rhythm, No murmur, No gallop. negative: Irregularly irregular, Extrasystoles, Tachycardia, Bradycardia, JVD present, Systolic murmur, Diastolic murmur Peripheral Pulses: 2+ Radial (R), 2+ Radial (L), 2+ Dorsalis pedis (R), 2+ Dorsalis pedis (L) Abdomen: positive: Non-tender, No organomegaly, Nml bowel sounds, No distention. negative: Tenderness, Guarding, Rebound Back: positive: Nml inspection. negative: CVA tenderness (R), CVA tenderness (L) Skin: positive: Color nml, No rash, Warm, Dry. negative: Cyanosis, Diaphoresis, Pallor Extremities: positive: Non-tender, Full ROM, Nml appearance. negative: Calf tenderness, Joint swelling, Edgar's sign/cords Neurologic/Psychiatric: positive: Oriented x3, Sensation nml, Mood/affect nml. negative: Weakness, Sensory loss, Facial droop, Slurred/abnml speech, Depressed mood/affect - Lab Results Fish Bones: 09/01/18 06:25 09/01/18 06:25 Other Labs: Lab Results x24hrs 09/01/18 09/01/18 09/01/18 Range/Units 06:25 06:25 06:25 WBC 6.2 (4.8-10.8) x10^3/uL RBC 3.40 L (4.20-5.40) 10^6/uL Hgb 9.8 L (12.0-16.0) g/dL Hct 31.9 L (37.0-47.0) % MCV 93.7 (81.0-99.0) fL MCH 28.7 (27.0-31.0) pg MCHC 30.6 L (32.0-36.0) g/dL RDW 16.1 H (12.0-15.0) % Plt Count 181 (130-450) 10^3/uL MPV 8.1 (7.9-10.8) fL Neut # (Auto) (1.5-6.6) 10^3/uL Lymph # (Auto) (1.5-3.5) 10^3/uL [place] # (Auto) (0.0-1.0) 10^3/uL Eos # (Auto) (0.0-0.7) 10^3/uL Baso # (Auto) (0.0-0.1) 10^3/uL Absolute Nucleated RBC x10^3/uL Nucleated RBC % /100WBC Sodium 140 (135-145) mmol/L Potassium 4.8 (3.5-5.0) mmol/L Chloride 98 L (101-111) mmol/L Carbon Dioxide 37 H (21-32) mmol/L Anion Gap 5.0 L (6-13) BUN 32 H (6-20) mg/dL Creatinine 1.5 H (0.4-1.0) mg/dL Estimated GFR (MDRD) 34 L (>89) Glucose 119 H (70-100) mg/dL Glycated Hemoglobin (4.6-6.2) % Estim Average Glucose (70-100) Lactic Acid (0.5-2.2) mmol/L Calcium 9.0 (8.5-10.3) mg/dL Total Bilirubin (0.2-1.0) mg/dL AST (10-42) IU/L ALT (10-60) IU/L Alkaline Phosphatase (42-121) IU/L Troponin I (<0.49) ng/mL B-Natriuretic Peptide 160 H (5-100) pg/mL Total Protein (6.7-8.2) g/dL Albumin (3.2-5.5) g/dL Globulin (2.1-4.2) g/dL Albumin/Globulin Ratio (1.0-2.2) Lipase (22-51) U/L Urine Color Urine Clarity (CLEAR) Urine pH (5.0-7.5) PH Ur Specific [place] (1.002-1.030) Urine Protein (NEGATIVE) mg/dL Urine Glucose (UA) (NEGATIVE) mg/dL Urine Ketones (NEGATIVE) mg/dL Urine Occult Blood (NEGATIVE) Urine Nitrite (NEGATIVE) Urine Bilirubin (NEGATIVE) Urine Urobilinogen (NORMAL) E.U./dL Ur Leukocyte Esterase (NEGATIVE) Ur Microscopic Review Urine Culture Comments Influenza A (Rapid) (Negative) Influenza B (Rapid) (Negative) 08/31/18 08/31/18 08/31/18 Range/Units 20:34 19:40 18:17 WBC (4.8-10.8) x10^3/uL RBC (4.20-5.40) 10^6/uL Hgb (12.0-16.0) g/dL Hct (37.0-47.0) % MCV (81.0-99.0) fL MCH (27.0-31.0) pg MCHC (32.0-36.0) g/dL RDW (12.0-15.0) % Plt Count (130-450) 10^3/uL MPV (7.9-10.8) fL Neut # (Auto) (1.5-6.6) 10^3/uL Lymph # (Auto) (1.5-3.5) 10^3/uL [place] # (Auto) (0.0-1.0) 10^3/uL Eos # (Auto) (0.0-0.7) 10^3/uL Baso # (Auto) (0.0-0.1) 10^3/uL Absolute Nucleated RBC x10^3/uL Nucleated RBC % /100WBC Sodium (135-145) mmol/L Potassium (3.5-5.0) mmol/L Chloride (101-111) mmol/L Carbon Dioxide (21-32) mmol/L Anion Gap (6-13) BUN (6-20) mg/dL Creatinine (0.4-1.0) mg/dL Estimated GFR (MDRD) (>89) Glucose (70-100) mg/dL Glycated Hemoglobin 6.0 (4.6-6.2) % Estim Average Glucose 126 H (70-100) Lactic Acid (0.5-2.2) mmol/L Calcium (8.5-10.3) mg/dL Total Bilirubin (0.2-1.0) mg/dL AST (10-42) IU/L ALT (10-60) IU/L Alkaline Phosphatase (42-121) IU/L Troponin I (<0.49) ng/mL B-Natriuretic Peptide (5-100) pg/mL Total Protein (6.7-8.2) g/dL Albumin (3.2-5.5) g/dL Globulin (2.1-4.2) g/dL Albumin/Globulin Ratio (1.0-2.2) Lipase (22-51) U/L Urine Color YELLOW Urine Clarity CLEAR (CLEAR) Urine pH 5.5 (5.0-7.5) PH Ur Specific [place] 1.015 (1.002-1.030) Urine Protein NEGATIVE (NEGATIVE) mg/dL Urine Glucose (UA) NEGATIVE (NEGATIVE) mg/dL Urine Ketones NEGATIVE (NEGATIVE) mg/dL Urine Occult Blood NEGATIVE (NEGATIVE) Urine Nitrite NEGATIVE (NEGATIVE) Urine Bilirubin NEGATIVE (NEGATIVE) Urine Urobilinogen 0.2 (NORMAL) (NORMAL) E.U./dL Ur Leukocyte Esterase NEGATIVE (NEGATIVE) Ur Microscopic Review NOT INDICATED Urine Culture Comments NOT INDICATED Influenza A (Rapid) Negative (Negative) Influenza B (Rapid) Negative (Negative) 08/31/18 08/31/18 08/31/18 Range/Units 18:05 18:05 18:05 WBC (4.8-10.8) x10^3/uL RBC (4.20-5.40) 10^6/uL Hgb (12.0-16.0) g/dL Hct (37.0-47.0) % MCV (81.0-99.0) fL MCH (27.0-31.0) pg MCHC (32.0-36.0) g/dL RDW (12.0-15.0) % Plt Count (130-450) 10^3/uL MPV (7.9-10.8) fL Neut # (Auto) (1.5-6.6) 10^3/uL Lymph # (Auto) (1.5-3.5) 10^3/uL [place] # (Auto) (0.0-1.0) 10^3/uL Eos # (Auto) (0.0-0.7) 10^3/uL Baso # (Auto) (0.0-0.1) 10^3/uL Absolute Nucleated RBC x10^3/uL Nucleated RBC % /100WBC Sodium (135-145) mmol/L Potassium (3.5-5.0) mmol/L Chloride (101-111) mmol/L Carbon Dioxide (21-32) mmol/L Anion Gap (6-13) BUN (6-20) mg/dL Creatinine (0.4-1.0) mg/dL Estimated GFR (MDRD) (>89) Glucose (70-100) mg/dL Glycated Hemoglobin (4.6-6.2) % Estim Average Glucose (70-100) Lactic Acid 1.1 (0.5-2.2) mmol/L Calcium (8.5-10.3) mg/dL Total Bilirubin (0.2-1.0) mg/dL AST (10-42) IU/L ALT (10-60) IU/L Alkaline Phosphatase (42-121) IU/L Troponin I < 0.04 (<0.49) ng/mL B-Natriuretic Peptide 216 H (5-100) pg/mL Total Protein (6.7-8.2) g/dL Albumin (3.2-5.5) g/dL Globulin (2.1-4.2) g/dL Albumin/Globulin Ratio (1.0-2.2) Lipase (22-51) U/L Urine Color Urine Clarity (CLEAR) Urine pH (5.0-7.5) PH Ur Specific [place] (1.002-1.030) Urine Protein (NEGATIVE) mg/dL Urine Glucose (UA) (NEGATIVE) mg/dL Urine Ketones (NEGATIVE) mg/dL Urine Occult Blood (NEGATIVE) Urine Nitrite (NEGATIVE) Urine Bilirubin (NEGATIVE) Urine Urobilinogen (NORMAL) E.U./dL Ur Leukocyte Esterase (NEGATIVE) Ur Microscopic Review Urine Culture Comments Influenza A (Rapid) (Negative) Influenza B (Rapid) (Negative) 08/31/18 08/31/18 Range/Units 18:05 18:05 WBC 8.1 (4.8-10.8) x10^3/uL RBC 3.42 L (4.20-5.40) 10^6/uL Hgb 10.0 L (12.0-16.0) g/dL Hct 32.1 L (37.0-47.0) % MCV 93.7 (81.0-99.0) fL MCH 29.1 (27.0-31.0) pg MCHC 31.1 L (32.0-36.0) g/dL RDW 15.8 H (12.0-15.0) % Plt Count 191 (130-450) 10^3/uL MPV 8.1 (7.9-10.8) fL Neut # (Auto) 6.0 (1.5-6.6) 10^3/uL Lymph # (Auto) 1.1 L (1.5-3.5) 10^3/uL [place] # (Auto) 0.7 (0.0-1.0) 10^3/uL Eos # (Auto) 0.3 (0.0-0.7) 10^3/uL Baso # (Auto) 0.1 (0.0-0.1) 10^3/uL Absolute Nucleated RBC 0.00 x10^3/uL Nucleated RBC % 0.0 /100WBC Sodium 139 (135-145) mmol/L Potassium 5.6 H (3.5-5.0) mmol/L Chloride 100 L (101-111) mmol/L Carbon Dioxide 33 H (21-32) mmol/L Anion Gap 6.0 (6-13) BUN 31 H (6-20) mg/dL Creatinine 1.5 H (0.4-1.0) mg/dL Estimated GFR (MDRD) 34 L (>89) Glucose 112 H (70-100) mg/dL Glycated Hemoglobin (4.6-6.2) % Estim Average Glucose (70-100) Lactic Acid (0.5-2.2) mmol/L Calcium 8.8 (8.5-10.3) mg/dL Total Bilirubin 0.5 (0.2-1.0) mg/dL AST 16 (10-42) IU/L ALT < 10 L (10-60) IU/L Alkaline Phosphatase 71 (42-121) IU/L Troponin I (<0.49) ng/mL B-Natriuretic Peptide (5-100) pg/mL Total Protein 7.4 (6.7-8.2) g/dL Albumin 3.9 (3.2-5.5) g/dL Globulin 3.5 (2.1-4.2) g/dL Albumin/Globulin Ratio 1.1 (1.0-2.2) Lipase 24 (22-51) U/L Urine Color Urine Clarity (CLEAR) Urine pH (5.0-7.5) PH Ur Specific [place] (1.002-1.030) Urine Protein (NEGATIVE) mg/dL Urine Glucose (UA) (NEGATIVE) mg/dL Urine Ketones (NEGATIVE) mg/dL Urine Occult Blood (NEGATIVE) Urine Nitrite (NEGATIVE) Urine Bilirubin (NEGATIVE) Urine Urobilinogen (NORMAL) E.U./dL Ur Leukocyte Esterase (NEGATIVE) Ur Microscopic Review Urine Culture Comments Influenza A (Rapid) (Negative) Influenza B (Rapid) (Negative) ABX Reporting Has patient been on IV antibiotics over the past 48 hours?: No Sepsis Event Note (H) - Evaluation Current Stage of Sepsis: Ruled out Assessment/Plan - Problem List (1) Altered mental status Impression: (1) Altered mental status pt return her baseline, resolved (2) diarrhea water-like diarrhea, it may be reactive to antibiotics C.Diff test stool culture Ova, para. culture closely watch pt's fluid status, if dehydrated, will order hydration. (3) Dyspnea clinic resolved, pt did not present SOB more (4) UTI (urinary tract infection) negative, stop antibiotics (5) Acute exacerbation of CHF (congestive heart failure) improved, BNP is down. continue diuretics, also monitor pt's Fluid status, precaution of dehydration, pt also has diarrhea. (6) Diabetes mellitus type 2 in obese Conclusion/Plan: pt's A1C is 6, glucose is good controlled continue slide scale continue hypoglycemia protocol (7) Anemia Normocytic anemia likely chronic possibly related to chronic kidney disease. stable, continue lab monitor (8) CKD stage 4 pt has chronic state 4 CKD, it is stable continue lab monitor, pt is diuretics for CHF, precaution of dehydration. Qualifiers: Altered mental status type: delirium Qualified Code(s): R41.0 - Disorientation, unspecified
[2018-09-01] MEDS: SACCHAROMYCES BOULARDII 250 MG CAPSULE PO SCH (17:18)
[2018-09-01] MEDS: diphenhydrAMINE 25 MG CAPSULE PO SCH (21:24)
[2018-09-02] MEDS: SODIUM CHLORIDE FLUSH 0.9% 10 ML SYRINGE IVP SCH ×2 (00:43→08:17)
[2018-09-02 06:08] LABS: HGB - HEMOGLOBIN 10.2 g/dL (12.0-16.0); MEAN CORPUSCULAR HEMOGLOBIN 29.1 pg (27.0-31.0); MEAN CORPUSCULAR HGB CONC 31.7 g/dL (32.0-36.0); MEAN CORPUSCULAR VOLUME 91.8 fL (81.0-99.0); MEAN PLATELET VOLUME 8.1 fL (7.9-10.8); RED BLOOD COUNT 3.51 10^6/uL (4.20-5.40); RED CELL DISTRIBUTION WIDTH 16.1 % (12.0-15.0); WHITE BLOOD COUNT 7.2 x10^3/uL (4.8-10.8)
[2018-09-02 06:14] LABS: CALCIUM 9.1 mg/dL (8.5-10.3); CREATININE 1.6 mg/dL (0.4-1.0)
[2018-09-02] MEDS: FUROSEMIDE 40 MG/4 ML VIAL IVP SCH (06:17)
[2018-09-02] MEDS: SODIUM CHLORIDE FLUSH 0.9% 10 ML SYRINGE IVP PRN (06:17)
[2018-09-02] MEDS: LEVOTHYROXINE 100 MCG TABLET PO SCH (06:17)
[2018-09-02] MEDS ORDERED: PANTOPRAZOLE 40 MG TABLET PO SCH (07:00)
[2018-09-02] MEDS: ISOSORBIDE MONONITRATE ER 30 MG TABLET PO SCH (08:18)
[2018-09-02] MEDS: SACCHAROMYCES BOULARDII 250 MG CAPSULE PO SCH (08:18)
[2018-09-02] MEDS: METOPROLOL SUCCINATE 50 MG TABLET PO SCH (08:18)
[2018-09-02] MEDS: INSULIN 70/30 HUMAN 100 UNIT/1 ML 10 ML MDV SUBQ SCH (08:18)
[2018-09-02] MEDS: POLYETHYLENE GLYCOL 3350 17 GM PACKET PO SCH (08:18)
[2018-09-02] MEDS: SPIRONOLACTONE 25 MG TABLET PO SCH (08:18)
[2018-09-02] MEDS: ATORVASTATIN 40 MG TABLET PO SCH (08:18)
[2018-09-02] MEDS: RIVAROXABAN 15 MG TABLET PO SCH (08:18)
[2018-09-02] MEDS ORDERED: LEVOTHYROXINE 100 MCG TABLET PO SCH (08:20)
[2018-09-02] MEDS: INSULIN ASPART 300 UNIT/3 ML PEN SUBQ SCH (08:22)
[2018-09-02] MEDS: NYSTATIN POWDER 15 GM TOP SCH (08:23)
[2018-09-02] MEDS: ZINC OXIDE 20% OINT 28.35 GM TUBE TOP PRN (08:23)
[2018-09-02 08:25] VITALS: BP 154/90
--- NOTE | 2018-09-02 08:26 | Discharge Plan ---
Discharge Plan Disposition: Home, Self Care Condition: Poor Prescriptions: Levothyroxine [Synthroid] 175 mcg PO QDAC #10 tablet Diet: Diabetic Activity Restrictions: Activity as Tolerated Shower Restrictions: No (fall precaution, caregiver closely monitor) Instruction Topics: Heart Failure, Heart Failure Coping, Heart Failure Diet Changes, ED Altered Loc, ED CHF General, Levothyroxine tablets Additional Instructions or Follow Up instructions: You may followup your PCP in one week. You are admitted for altered mental status, now your mental status return your baseline. you has no diarrhea now. Your levothyroxine dosage is a little high, now you are advised to take 175 mcg daily, please follow up your PCP to continue to manage. Should your symptoms return or worsen, you may present ER or call 911 for help. No Smoking: If you smoke, Please STOP! Call for help. Follow-up with: Jose Luis Metcalf MD [Primary Care Provider] -
--- NOTE | 2018-09-02 08:32 | DISCHARGE SUMMARY ---
Discharge Summary Discharge Date: 09/02/18 Discharging Provider: GALLEGOS Primary Care Provider: Dr. Jose Luis Metcalf Condition at Discharge: Poor Discharge Disposition: 01 Home, Self Care Discharge Facility Name: home - DIAGNOSES Admission Diagnoses: (1) Altered mental status (2) Dyspnea (3) UTI (urinary tract infection) (4) Acute exacerbation of CHF (congestive heart failure) (5) Diabetes mellitus type 2 in obese (6) Anemia Discharge Diagnoses with Status of Each Condition: (1) Altered mental status resolved. return pt's baseline, alter and oriented. (2) Dyspnea resolved, as pt's baseline, pt has O2-dependent at home (3) Acute exacerbation of CHF (congestive heart failure) stable, BNP is down to 160. pt has no SOB, O2 sats as her baseline 95% sats on 4 liter continue home regimen, follow up PCP (4) Diabetes mellitus type 2 in obese stable, continue home regimen, followup PCP (5) Anemia stable (6) hypothyroidism pt has reduced TSH, so pt's Levothyroxine is adjusted to 175 mcg from 200 mcg, followup PCP to continue manage pt has no UTI in the final test - HPI History of Present Illness: refer from Dr. Velasco's HPI on 08/31/18 as the following: This is a 73-year-old female with multiple comorbid medical conditions including history of CHF, type 2 diabetes, hypothyroidism, chronic pain, chronic indwelling Blanco catheter with recent urinary tract infection treated with antibiotics on August 15 who presents to the emergency room with a 1 day history of worsening shortness of breath, hypoxia, dyspnea, and confusion. Patient resides at home with her daughter who typically takes care of her and states that she normally requires 3 L of oxygen and today had to be turned up to 5 L of oxygen in order to maintain saturations above 90%. Also, since this morning the patient has been noted to be confused, and have a generalized weakness and decreased level of function compared to her baseline. For example her daughter had to feed her breakfast this morning which is not typical. Us ually she is at least able to ambulate around the house with the assistance of a walker and she was unable to do that today primarily due to weakness. She denies any focal neurological deficits and the patient's daughter states that she has had episodes like this before typically when she gets sick either with an infection or CHF exacerbation and though she states this is a little bit worse than usual its otherwise fairly similar in its presentation. In the emergency room evaluation included chest x-ray which was fairly nondiagnostic, labs which showed a mild hyperkalemia, but no elevated white blood cell count or elevated lactic acid. Urinalysis was ordered but presumed to be contaminated due to the chronic indwelling Blanco catheter which has been in place for the last 2 weeks. She did have a mildly elevated BNP and was presumed to be in CHF exacerbation at which point I was called for admission into the hospital. Because of the potential for urinary tract infection as the etiology for her confusion, IV Rocephin was initiated in the emergency room after appropriate blood cultures and urine culture were obtained. - HOSPITAL COURSE Hospital Course: pt was admitted for AMS and CHF exacerbation. after treatment, pt's mental status return her baseline, alter and oriented. Pt's BNP is down 160 from 220. pt does not have SOB or pulmonary congestion after treatment. 95% sats on 4 liter of O2 as her baseline at home. pt also has no more diarrhea, c.diff test is negative. - ALLERGIES Allergies/Adverse Reactions: Allergies Allergy/AdvReac Type Severity Reaction Status Date / Time No Known Drug Allergies Allergy Verified 08/31/18 17:51 - MEDICATIONS Home Medications: Ambulatory Orders Medication Instructions Recorded Confirmed Atorvastatin Calcium 40 mg PO DAILY 11/13/17 09/01/18 HYDROcod/ACETAM 5/325 [Thomas 5/325] 0.5 - 1 tab PO TID PRN 11/13/17 09/01/18 Insulin NPH Hum/Reg Insulin Hm 16 units SUBQ 0730 11/13/17 09/01/18 [Novolin 70-30 100 Unit/ml Vial] Insulin NPH Hum/Reg Insulin Hm 18 units SUBQ QPM 11/13/17 09/01/18 [Novolin 70-30 100 Unit/ml Vial] diphenhydrAMINE [Benadryl] 50 mg PO QPM 11/13/17 09/01/18 metFORMIN [Glucophage] 500 mg PO BIDWM 11/13/17 09/01/18 Furosemide 40 mg PO DAILY #60 tablet 11/15/17 09/01/18 Isosorbide Mononitrate ER [Imdur] 30 mg PO DAILY #60 tablet 11/15/17 09/01/18 Metoprolol Succinate [Toprol Xl] 50 mg PO DAILY #60 tablet 11/15/17 09/01/18 Spironolactone [Aldactone] 25 mg PO DAILY #60 tablet 11/15/17 09/01/18 Omeprazole 20 mg PO DAILY 08/31/18 09/01/18 Rivaroxaban [Xarelto] 15 mg PO DAILY 08/31/18 08/31/18 Levothyroxine [Synthroid] 175 mcg PO QDAC #10 tablet 09/02/18 - PHYSICAL EXAM AT DISCHARGE General Appearance: positive: No acute distress, Alert. negative: Lethargic Eyes Bilateral: positive: Normal inspection, PERRL, No lid inflammation, Conjunctivae nml ENT: positive: ENT inspection nml, Pharynx nml, No signs of dehydration. negative: Purulent nasal drainage, Pharyngeal erythema, Oral lesions Neck: positive: Nml inspection, Thyroid nml, No JVD, Trachea midline. negative: Thyromegaly, Lymphadenopathy (R), Lymphadenopathy (L), Stiff neck, Swelling/bruising, Tracheal deviation Respiratory: positive: Chest non-tender, No respiratory distress, Breath sounds nml. negative: Wheezes, Rales, Rhonchi Cardiovascular: positive: Regular rate & rhythm, No murmur, No gallop. negative: Irregularly irregular, Extrasystoles, Tachycardia, Bradycardia, JVD present, Systolic murmur, Diastolic murmur Abdomen: positive: Non-tender, No organomegaly, Nml bowel sounds, No distention. negative: Tenderness, Guarding, Rebound Back: positive: Nml inspection. negative: CVA tenderness (R), CVA tenderness (L) Skin: positive: Color nml, No rash, Warm, Dry. negative: Cyanosis, Diaphoresis, Pallor Extremities: positive: Non-tender, Nml appearance. negative: Calf tenderness, Joint swelling, Edgar's sign/cords Neurologic/Psychiatric: positive: Oriented x3, Sensation nml, Mood/affect nml. negative: Weakness, Sensory loss, Facial droop, Slurred/abnml speech, Depressed mood/affect - LABS Result Diagrams: 09/02/18 05:49 09/02/18 05:49 - SEPSIS Current Stage of Sepsis: Ruled out - FOLLOW UP Follow Up: You may followup your PCP in one week. You are admitted for altered mental status, now your mental status return your baseline. you has no diarrhea now. Your levothyroxine dosage is a little high, now you are advised to take 175 mcg daily, please follow up your PCP to continue to manage. Should your symptoms return or worsen, you may present ER or call 911 for help. - TIME SPENT Time Spent in Discharge (Minutes): 50
--- NOTE | 2018-09-02 08:47 | ADVANCE CARE PLANNING NOTE ---
Advance Care Planning - Date/Time Date: 09/02/18 Time: 08:44 - Purpose of encounter Text: advance care for pt - Parties in attendance Parties in attendance: pt and me - Decisional capacity Decisional capacity of: pt is alert and oriented, can make her own decision - Subjective/Patient's story Subjective/Patient's story: pt like to discuss her future care plan, and possible palliative care in her plan - Objective/Medical story Objective/Medical Story: pt is obese, DM2, diastolic CHF, TIA/CVA, right side weakness, CKD stage 4. - Goals of Care Goals of care determinations: discuss future advance care, possible palliative care - Plan Plan: will plan palliative care followup - Time Spent on Advance Care Planning Time spent on advance care plannin
[2018-09-03] MEDS ORDERED: LEVOTHYROXINE 75 MCG TABLET PO SCH (07:00)
[2018-09-03] MEDS ORDERED: LEVOTHYROXINE 100 MCG TABLET PO SCH (07:00)
== END 2018-09-02 10:07 | disposition home or self-care (01) | DRG 293 ==
LOC: EDUNIT# → ED 17:36 → MS2 20:12
PROVIDERS: ADMIT Family Medicine Sports Medicine; ATTEND Nurse Practitioner Gerontology
DX: R06.02 Shortness of breath (principal); I11.0 Hypertensive heart disease with heart failure; E87.3 Alkalosis; I50.9 Heart failure, unspecified; R09.02 Hypoxemia; R41.0 Disorientation, unspecified; E11.9 Type 2 diabetes mellitus without complications; E66.9 Obesity, unspecified; D64.9 Anemia, unspecified; E03.9 Hypothyroidism, unspecified; Z79.01 Long term (current) use of anticoagulants; E87.5 Hyperkalemia; R19.7 Diarrhea, unspecified; J43.9 Emphysema, unspecified; K21.9 Gastro-esophageal reflux disease without esophagitis; Z96.0 Presence of urogenital implants; Z66 Do not resuscitate; Z79.899 Other long term (current) drug therapy; Z99.81 Dependence on supplemental oxygen; Z68.37 Body mass index [BMI] 37.0-37.9, adult; Z87.440 Personal history of urinary (tract) infections; Z87.891 Personal history of nicotine dependence; Z87.01 Personal history of pneumonia (recurrent); Z79.4 Long term (current) use of insulin
CPT/HCPCS: 36415; 71045; 80048; 80053; 81001; 81003; 83036; 83605; 83690; 83880; 84443; 84484; 85025; 85027; 87040; 87045; 87046; 87086; 87177; 87209; 87275; 87276; 87493; 93005; 96365; 99284; 99285

== ENCOUNTER 2018-09-30 22:19 | Outpatient (CLI) | payer MEDICARE, OTHER | END 2018-09-30 22:20 | disposition short-term general hospital (02) | LOC: EMS 22:19 | PROVIDERS: ATTEND Surgery | DX: T14.90XA Injury, unspecified, initial encounter (principal); S91.119A Laceration without foreign body of unspecified toe without damage to nail, initial encounter; W07.XXXA Fall from chair, initial encounter; Y93.89 Activity, other specified; Y92.009 Unspecified place in unspecified non-institutional (private) residence as the place of occurrence of the external cause | CPT/HCPCS: A0425; A0429; A0888 ==

== ENCOUNTER 2018-10-02 15:14 | Outpatient (CLI) | payer MEDICARE, OTHER ==
--- NOTE | 2018-10-02 19:59 | HISTORY & PHYSICAL EXAMINATION ---
Chief Complaint - Chief Complaint Chief Complaint: [facility]. History of Present Illness - Admitted From Admitted From:: ED - History Obtained From Records Reviewed: Yes History obtained from: Patient and daughter - History of Present Illness HPI Comment/Other: HPI Comment/Other: Aurora Pillai is a morbidly obese 73-year old white female with a past medical history of chronic pain, chronic indwelling roldan, fractured toes, DM type 2, CAD, HTN, hyperlipidemia, systolic CHF with prior EF 45-50% on 11/13/17, cor- pulmonale, morbid obesity, and hypothyroidism. Patient fell 2 days ago with no evidence of fractures on imaging and was found to have a UTI at outside facility treated with Bactrim DS 2 doses but was unable to ambulate due to right knee pain. Initial labs show acute renal insufficiency, on her baseline 4L NC 02 dependent, CBC shows anemia with no reports of melena, hematochezia, GI symptoms on Xarelto. 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: reports: None : reports: Incontinence, Indwelling catheter, Other (hx UTI's ) HEENT: reports: Chronic sinusitis, Chronic hearing loss Psych: reports: Depression Musculoskeletal: reports: Chronic back pain Derm: reports: Other MRSA Hx?: No - Past Surgical History General: reports: Cholecystectomy /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 She was for 32 years, but her about 4 years ago. She had 3 children, 3 girls and one boy. The boy at age 14 years. She raised her family in the state of [place]. Patient was a life-long smoker, but quit about 6 years ago after a really bad case of pneumonia. Patient denies alcohol, or other illicit drug use. She wishes to be a DNR. A long discussion about quality of life and possible upcoming procedures in the event she would need a cardiac cath. Patient was clear about not wanting anything invasive that would prolong her life. - Substance History Use: Uses substance without health or social issues: NONE - POLST Patient has POLST: Yes POLST Status: DNR Meds/Allgy - Home Medications Home Medications: Ambulatory Orders Medication Instructions Recorded Confirmed Atorvastatin Calcium 40 mg PO DAILY 11/13/17 10/02/18 HYDROcod/ACETAM 5/325 [Weir 5/325] 0.5 - 1 tab PO TID PRN 11/13/17 10/02/18 Insulin NPH Hum/Reg Insulin Hm 16 units SUBQ 0730 11/13/17 10/02/18 [Novolin 70-30 100 Unit/ml Vial] Insulin NPH Hum/Reg Insulin Hm 18 units SUBQ QPM 11/13/17 10/02/18 [Novolin 70-30 100 Unit/ml Vial] diphenhydrAMINE [Benadryl] 50 mg PO QPM 11/13/17 09/01/18 metFORMIN [Glucophage] 500 mg PO BIDWM 11/13/17 10/02/18 Furosemide 40 mg PO DAILY #60 tablet 11/15/17 10/02/18 Isosorbide Mononitrate ER [Imdur] 30 mg PO DAILY #60 tablet 11/15/17 10/02/18 Metoprolol Succinate [Toprol Xl] 50 mg PO DAILY #60 tablet 11/15/17 10/02/18 Spironolactone [Aldactone] 25 mg PO DAILY #60 tablet 11/15/17 10/02/18 Omeprazole 20 mg PO DAILY 08/31/18 10/02/18 Rivaroxaban [Xarelto] 15 mg PO DAILY 08/31/18 10/02/18 Levothyroxine [Synthroid] 175 mcg PO QDAC #10 tablet 09/02/18 10/02/18 Sulfamethoxazole/Trimethoprim 10/02/18 [Sulfamethoxazole-Tmp Ds Tablet] - Allergies Allergies/Adverse Reactions: Allergies Allergy/AdvReac Type Severity Reaction Status Date / Time No Known Drug Allergies Allergy Verified 10/02/18 15:44 Review of Systems - Constitutional Constitutional: reports: Weakness - Genitourinary Genitourinary: reports: Incontinence, Other (indwelling roldan cath since august changed 2 days ago) Prior Level of Functionality: patient was walking prior to fall Exam - Vital Signs Vital Signs: HD stable, afebrile, non-tachypneic non-tachycardic on 3L NC with 93% o2 saturation, BP 137/59 - Physical Exam General Appearance: positive: No acute distress, Lethargic, Other (Morbidly obese) Eyes Bilateral: positive: PERRL, EOMI, Conjunctivae nml ENT: positive: Dry mucous membranes Neck: positive: Nml inspection, Thyroid nml, No JVD, Trachea midline. negative: Carotid bruit Respiratory: positive: Chest non-tender, No respiratory distress, Breath sounds nml Cardiovascular: positive: Regular rate & rhythm, No murmur, No gallop. negative: JVD present, Gallop/S4, Friction rub Peripheral Pulses: positive: 2+ Abdomen: positive: Non-tender, No organomegaly, Nml bowel sounds, No distention Back: positive: Nml inspection. negative: CVA tenderness (R), CVA tenderness (L) Skin: positive: Color nml, No rash, Warm Neurologic/Psychiatric: positive: Oriented x3, CN's nml (2-12) Conclusion/Plan - Problem List (1) UTI (urinary tract infection) Conclusion/Plan: Patient with hx UTI's with 2 admisions in 2018 with treatment of UTI, and was recently diagnosed 2 days prior to admission at outside facility with UCx pending per ED, and repeat UA/Ucx likely contaminant on this admission. UA on file in [facility] on 08/31/18 is negative. Will treat empirically with IV rocephin and await results. Would hold off on BACRIM DS due to nephrotoxicity and KISHA. Qualifiers: Urinary tract infection type: catheter-associated UTI Indwelling urinary catheter type: indwelling urethral catheter Encounter type: initial encounter Qualified Code(s): T83.511A - Infection and inflammatory reaction due to indwelling urethral catheter, initial encounter; N39.0 - Urinary tract infection, site not specified (2) Acute renal insufficiency Conclusion/Plan: Patient with likely Diabetic CKD stage 3 baseline at 1.4-1.7 per prior labs with KISHA with creatinine of 1.8, likely diuretic induced, to have some hydration to perfuse kidneys and avoid further nehrotoxic agents, hold LASIX, Bactrim DS, Aldactone, and metformin for now. (3) Contusion of right knee Conclusion/Plan: Xray and [facility] at [facility] 2 days prior to admission were negative other than a small knee effusion. Patient on xarelto and would need to monitor closely to avoid possible Hemarthrosis. Osteopenia seen on imaging. Would order a uric acid to eval for gout, although don't see this on PMhx. Diclofenac gel 1% QID along with Weir for pain relieve, would avoid NSAID's for now as she has KISHA/CKD-3. Qualifiers: Encounter type: initial encounter Qualified Code(s): S80.01XA - Contusion of right knee, initial encounter (5) Anemia Conclusion/Plan: Appears to be anemia of chronic disease with some macrocytois. Would follow H/H closely and trend as she is on Xarelto. Qualifiers: Anemia type: due to chronic kidney disease Chronic kidney disease stage: stage 3 (moderate) Qualified Code(s): N18.3 - Chronic kidney disease, stage 3 (moderate); D63.1 - Anemia in chronic kidney disease (6) Diabetes mellitus type 2 in obese Conclusion/Plan: IDDM type 2. Will place on ISS low dose correctional, hold MFM for now, Carb controlled diet, HgbA1C to follow, basal coverage if needed. (7) Chronic systolic (congestive) heart failure Conclusion/Plan: Patient with prior ECHO on 11/13/17 with EF 45-50% with pulm htn, increased RVP with CLEO, RVD c/w cor-pulmonale and 02 dependent on 3-5 L NC to continue. CAD per hx as she resumes statin, metoprolol. hold lasix/aldactone for now may need repeat echo as outpatient for eval of EF improvement while on GDMtx. (8) Generalized weakness Conclusion/Plan: Would have PT/OT eval for baseline and antalgic gait associated with Right knee contusion with mild small knee effusion. - Lab Results Lab results reviewed: Yes - Diagnostic Imaging Results Diagnostic Imaging Results Comments: Outside imaging studies per ED were negative for right knee fracture - EKG Results EKG Interpreted Independently: Yes Core Measures - Anticipated LOS I expect patient to be DC'd or transferred within 96 hours.: Yes - Issues Hospital Issues and Management Plan: Patient to be admitted for treatment of recurrent UTI, generalized weakness s/p fall with antalgic gait associated with her fall 2 days prior - DVT/VTE - Prophylaxis VTE/DVT Device ordered at admit?: Yes VTE/DVT Prophylaxis med ordered at admit?: No Not Ordered - Medical Reason: Not indicated (already on xarelto) - Stroke - Rehab Assessment Rehab services assessment to be ordered?: Yes - AMI - Statin at Admit Aspirin Prescribed on Admit: No Not Ordered - Medical Reason: Not indicated (on xarelto)
== END 2018-10-02 15:15 | disposition critical access hospital (66) ==
LOC: EMS 15:14
PROVIDERS: ATTEND Surgery
DX: M25.561 Pain in right knee (principal)
CPT/HCPCS: A0425; A0429

== ENCOUNTER 2018-10-02 15:30 | Observation (INO) | payer MEDICARE, OTHER ==
[2018-10-02] MEDS ORDERED: HYDROcod/ACETAM 5/325 MG TABLET PO STA ×2 (15:41→17:59)
--- NOTE | 2018-10-02 15:43 | ED Physician Documentation ---
PD HPI LOWER EXT INJURY - Stated complaint Stated Complaint: RT LEG PX - History obtained from History obtained from: Patient, EMS - History of Present Illness PD HPI LOW EXT INJURY LOCATION: Right, Knee Type of injury: Fall (She fell a few nights ago at home. She was going the bathroom and started to feel weak and went down onto her knees. She is worsening right knee pain. She was seen at [facility] at night, they have discharge instructions with her. It sounds like they did a head CT noting that she is on anticoagulants but she denies hitting her head. That was reportedly normal. Also had a normal knee x-ray except for osteoarthritis. She was diagnosed with a UTI as well and put on Bactrim, and there was also remarked on the discharge instructions of mild hyperkalemia that needed to be rechecked. Her pain is getting worse and she is not taking anything for pain. 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 : Incontinence, Indwelling catheter HEENT: Chronic sinusitis, Chronic hearing loss Psych: Depression Musculoskeletal: Chronic back pain Derm: Other - Past Surgical History Past Surgical History: Yes General: Cholecystectomy /INSPECTOR ALIGNING: Hysterectomy - Present Medications Home Medications: Ambulatory Orders Medication Instructions Recorded Confirmed Atorvastatin Calcium 40 mg PO DAILY 11/13/17 10/02/18 HYDROcod/ACETAM 5/325 [Melissa 5/325] 0.5 - 1 tab PO TID PRN 11/13/17 10/02/18 Insulin NPH Hum/Reg Insulin Hm 16 units SUBQ 0730 11/13/17 10/02/18 [Novolin 70-30 100 Unit/ml Vial] Insulin NPH Hum/Reg Insulin Hm 18 units SUBQ QPM 11/13/17 10/02/18 [Novolin 70-30 100 Unit/ml Vial] diphenhydrAMINE [Benadryl] 50 mg PO QPM 02/13/18 12/02/18 metFORMIN [Glucophage] 500 mg PO BIDWM 11/13/17 10/02/18 Furosemide 40 mg PO DAILY #60 tablet 11/15/17 10/02/18 Isosorbide Mononitrate ER [Imdur] 30 mg PO DAILY #60 tablet 11/15/17 10/02/18 Metoprolol Succinate [Toprol Xl] 50 mg PO DAILY #60 tablet 11/15/17 10/02/18 Spironolactone [Aldactone] 25 mg PO DAILY #60 tablet 11/15/17 10/02/18 Omeprazole 20 mg PO DAILY 08/31/18 10/02/18 Rivaroxaban [Xarelto] 15 mg PO DAILY 08/31/18 10/02/18 Levothyroxine [Synthroid] 175 mcg PO QDAC #10 tablet 09/02/18 10/02/18 Sulfamethoxazole/Trimethoprim 10/02/18 [Sulfamethoxazole-Tmp Ds Tablet] - Allergies Allergies/Adverse Reactions: Allergies Allergy/AdvReac Type Severity Reaction Status Date / Time No Known Drug Allergies Allergy Verified 10/02/18 15:44 - Social History Does the pt smoke?: No Smoking Status: Former smoker Does the pt drink ETOH?: No Does the pt have substance abuse?: No - Immunizations Immunizations are current?: Yes - POLST Patient has POLST: Yes POLST Status: DNR PD ED PE NORMAL - Vitals Vital signs reviewed: Yes - General General: Alert and oriented X 3, No acute distress, Other (On oxygen which is her baseline) - HEENT HEENT: PERRL, EOMI - Neck Neck: Supple, no meningeal sign, No bony TTP - Cardiac Cardiac: RRR, No murmur - Respiratory Respiratory: No respiratory distress, Clear bilaterally - Abdomen Abdomen: Non tender - Back Back: No CVA TTP, No spinal TTP - Derm Derm: Normal color, Warm and dry - Extremities Extremities: Other (She is diffusely tender over the right knee anteriorly and to the lateral hip and femur. She has painless internal and external rotation of the right leg but she is unable to lift the leg off the bed due to pain.) - Neuro Neuro: Alert and oriented X 3, Normal speech - Psych Psych: Normal mood, Normal affect Results - Vitals Vitals: Vital Signs - 24 hr 10/02/18 10/02/18 15:42 16:30 Temperature 36.4 C L Heart Rate 89 86 Respiratory 20 18 Rate Blood Pressure 179/73 H 130/70 O2 Saturation 97 94 Oxygen O2 Source [] Nasal cannula O2 Source Nasal cannula - Labs Labs: Microbiology 10/02/18 18:08 Campylobacter Antigen Assay - Final Stool Laboratory Tests 10/02/18 10/02/18 15:47 15:47 WBC 7.6 RBC 3.27 L Hgb 9.4 L Hct 30.6 L MCV 93.6 MCH 28.8 MCHC 30.7 L RDW 15.4 H Plt Count 226 MPV 8.1 Neut # (Auto) Not Reportable Lymph # (Auto) Not Reportable Culberson # (Auto) Not Reportable Eos # (Auto) Not Reportable Baso # (Auto) Not Reportable Absolute Nucleated RBC Not Reportable Total Counted 100 Band Neuts % (Manual) 0 Abnorm Lymph % (Manual) 0 Nucleated RBC % Not Reportable Neutrophils # (Manual) 5.7 Lymphocytes # (Manual) 1.3 L Monocytes # (Manual) 0.6 Eosinophils # (Manual) 0.0 Basophils # (Manual) 0.0 Differential Comment MANUAL DIFFERENTIAL Manual Slide Review Indicated WBC Morphology NORMAL APPEARANCE Platelet Estimate NORMAL (130-450,000) Platelet Morphology NORMAL APPEARANCE RBC Morph Micro Appear 1+ POLYCHROMASIA Sodium 139 Potassium 4.5 Chloride 98 L Carbon Dioxide 34 H Anion Gap 7.0 BUN 34 H Creatinine 1.8 H Estimated GFR (MDRD) 27 L Glucose 142 H Calcium 8.7 Total Bilirubin 0.5 AST 13 ALT 12 Alkaline Phosphatase 64 Total Protein 7.0 Albumin 3.5 Globulin 3.5 Albumin/Globulin Ratio 1.0 Lipase 23 - Rads (name of study) R hip XR and R knee XR Radiology: EMP read contemporaneously (Formal read with osteopenia and degenerative joint disease and a small right knee effusion. I see an oblique lucency on 2 of the views of the right knee between the distal femoral condyles which is concerning. I spoke with the radiologist about this and he thought it was mostly likely to be soft tissue but agreed further imaging is in order.) CT R knee Radiology: EMP read contemporaneously (Osteopenia and severe osteoarthritis with moderate joint effusion and peripheral vascular disease but no acute fracture.) PD MEDICAL DECISION MAKING - ED course ED course: 73-year-old with multiple comorbidities including 4 L of oxygen dependence presents with continued right knee pain after a fall 2 nights ago. She is severely osteopenic and has severe osteoarthritis. I presume that in the another patient with a similar level of knee pain and osteoarthritis she would be a candidate for knee replacement. Her comorbidities may make that impossible. X-rays and advanced imaging demonstrate no fracture. We called [facility], the urine culture from 2 nights ago is still preliminary so I do not have sensitivities yet. She is placed on IV Rocephin. I spoke with Dr. Garcia for observation given the fact that she is persistently unable to ambulate at 7:34 PM. Departure - Departure Disposition: ED Place in Observation Clinical Impression: Diabetes mellitus type 2 in obese UTI (urinary tract infection) Qualifiers: Urinary tract infection type: catheter-associated UTI Indwelling urinary catheter type: indwelling urethral catheter Encounter type: initial encounter Qualified Code(s): T83.511A - Infection and inflammatory reaction due to indwelling urethral catheter, initial encounter Pain in extremity Qualifiers: Extremity pain location: lower extremity Laterality: right Qualified Code(s): M79.604 - Pain in right leg Contusion of right knee Qualifiers: Encounter type: initial encounter Qualified Code(s): S80.01XA - Contusion of right knee, initial encounter Condition: Stable
[2018-10-02 15:53] LABS: BASOPHILS % (AUTO) 1.4 %; EOSINOPHILS % (AUTO) 1.8 %; HGB - HEMOGLOBIN 9.4 g/dL (12.0-16.0); LYMPHOCYTES % (AUTO) 10.9 %; MEAN CORPUSCULAR HEMOGLOBIN 28.8 pg (27.0-31.0); MEAN CORPUSCULAR HGB CONC 30.7 g/dL (32.0-36.0); MEAN CORPUSCULAR VOLUME 93.6 fL (81.0-99.0); MEAN PLATELET VOLUME 8.1 fL (7.9-10.8); MONOCYTES % (AUTO) 11.4 %; NEUTROPHILS % (AUTO) 74.5 %; PLT - PLATELET COUNT 226 10^3/uL (130-450); RED BLOOD COUNT 3.27 10^6/uL (4.20-5.40); RED CELL DISTRIBUTION WIDTH 15.4 % (12.0-15.0); WHITE BLOOD COUNT 7.6 x10^3/uL (4.8-10.8)
[2018-10-02 15:56] LABS: ABNORMAL LYMPHS % (MANUAL) 0 %; BAND NEUTROPHILS % (MANUAL) 0 %
[2018-10-02 16:04] LABS: ALBUMIN 3.5 g/dL (3.2-5.5); BILIRUBIN,TOTAL 0.5 mg/dL (0.2-1.0); CALCIUM 8.7 mg/dL (8.5-10.3); CREATININE 1.8 mg/dL (0.4-1.0)
[2018-10-02 16:11] LABS: LYMPHOCYTES # (MANUAL) 1.3 10^3/uL (1.5-3.5); LYMPHOCYTES % (MANUAL) 17 %; MONOCYTES # (MANUAL) 0.6 10^3/uL (0.0-1.0); NEUTROPHILS # (MANUAL) 5.7 10^3/uL (1.5-6.6); NEUTROPHILS % (MANUAL) 75 %
[2018-10-02 16:12] LABS: DIFFERENTIAL COMMENT MANUAL DIFFERENTIAL; PLATELET ESTIMATE, MANUAL NORMAL (130-450,000) (NORMAL); PLATELET MORPHOLOGY NORMAL APPEARANCE (NORMAL)
[2018-10-02] MEDS ORDERED: cefTRIAXone 1 GM in SODIUM CHLORIDE 0.9% MINIBAG 100 ML IV STA (19:34)
--- NOTE | 2018-10-02 20:04 | XRAY Report ---
Reason: hip/knee pain, fall Procedure Date: 10/02/2018 Accession Number: [id number] / [id number] Procedure: XR - Hip w/Pelvis 2-3V RT CPT Code: FULL RESULT: EXAM: RIGHT HIP AND PELVIS RADIOGRAPHY EXAM DATE: 10/02/2018 03:44 PM. HISTORY: Follow-up. Right hip pain. COMPARISONS: None available. TECHNIQUE: 1 view of the pelvis and 1 view of the right hip. FINDINGS: Bones: Evaluation of the pelvis is limited by osteopenia and marked gaseous distention of the colon. No definite acute fracture or dislocation. Joints: Moderate narrowing of the hip joint spaces bilaterally. Soft Tissues: Multiple phleboliths in the pelvis. Calcified plaques in the iliac and femoral arteries. IMPRESSION: Osteopenia. No definite acute fracture or dislocation of the right hip. Moderate degenerative joint disease. RADIA ADDENDUM: 10/02/18 17:53 On further review, there is a lucency coursing through the distal femur on the AP and internal oblique view, which is not present on the other views. This could represent a nondisplaced fracture versus soft tissue artifact. Further evaluation with CT recommended. Findings discussed with Dr. Julio Luong at time of addendum.
--- NOTE | 2018-10-02 20:04 | XRAY Report ---
Reason: hip/knee pain, fall Procedure Date: 10/02/2018 Accession Number: [id number] / [id number] Procedure: XR - Knee 4 View RT CPT Code: FULL RESULT: EXAM: RIGHT KNEE RADIOGRAPHY EXAM DATE: 10/02/2018 03:44 PM. CLINICAL HISTORY: Follow-up. Right knee pain. COMPARISON: None available. TECHNIQUE: 4 views. FINDINGS: Bones: The bones are osteopenic. No acute fracture or dislocation visualized. Joints: Severe tricompartmental degenerative joint disease including near complete joint space loss, subchondral sclerosis, and bulky marginal osteophytosis. Small/moderate right knee joint effusion. Soft Tissues: Calcified plaques in the visualized femoral, popliteal, and lower leg arteries. IMPRESSION: Osteopenia. No acute fracture or dislocation visualized. Severe tricompartmental degenerative joint disease. Small/moderate right knee joint effusion. RADIA
--- NOTE | 2018-10-02 20:04 | CT Report ---
Reason: knee pain, abn xray, suspect frx between condyles Procedure Date: 10/02/2018 Accession Number: [id number] / [id number] Procedure: CT - Lower Extremity Right W/O CPT Code: FULL RESULT: EXAM: RIGHT KNEE CT WITHOUT CONTRAST EXAM DATE: 10/02/2018 06:15 PM. CLINICAL HISTORY: Right knee pain. Abnormal right knee radiograph. Concern for distal femoral fracture. COMPARISON: Right knee radiography from 10/02/2018. TECHNIQUE: Thin-section axial images were acquired of the knee without contrast. Post-processing: Coronal and sagittal reformats. Other: None. In accordance with CT protocol optimization, one or more of the following dose reduction techniques were utilized for this exam: automated exposure control, adjustment of mA and/or KV based on patient size, or use of iterative reconstructive technique. FINDINGS: No acute fracture or bone lesion. Moderate to large sized marginal osteophytes of the femoral condyles, tibial plateau, patella, and femoral trochlea. The bones are osteopenic. Tricompartmental osteoarthritis is present. Small to moderate sized joint effusion. No popliteal cyst. Moderate to severe osteoarthritis at the proximal tibiofibular joint. Musculature: Mild to moderate fatty atrophy of the visualized muscles. Other: Calcified plaques within the visualized femoral, popliteal, and tibial arteries. IMPRESSION: 1. Osteopenia. 2. No acute fracture. 3. Tricompartmental osteoarthritis at the right knee. Moderate to severe osteoarthritis at the proximal tibiofibular joint. 4. Small to moderate sized joint effusion. 5. Peripheral vascular disease. RADIA
[2018-10-02] MEDS ORDERED: ONDANSETRON 4 MG/2 ML VIAL IVP PRN (20:19)
[2018-10-02] MEDS ORDERED: PROCHLORPERAZINE 10 MG/2 ML VIAL IVP PRN (20:19)
[2018-10-02] MEDS ORDERED: SODIUM CHLORIDE FLUSH 0.9% 10 ML SYRINGE IVP PRN (20:19)
[2018-10-02] MEDS ORDERED: HYDROcod/ACETAM 5/325 MG TABLET PO PRN (20:24)
--- NOTE | 2018-10-02 20:55 | MISCELLANEOUS PROVIDER NOTE ---
Miscellaneous Provider Note - - Note: History and Physical Date: 10/02/18 Chief Complaint - Chief Complaint Chief Complaint: Weakness s/p fall 2 days ago with recent diagnosis of UTI. History of Present Illness - Admitted From Admitted From:: ED - History Obtained From Records Reviewed: Yes History obtained from: Patient and daughter - History of Present Illness HPI Comment/Other: Aurora Pillai is a morbidly obese 73-year old white female with a past medical history of chronic pain, chronic indwelling roldan, fractured toes, IDDM type 2, COPD-emphysema, CAD, HTN, hyperlipidemia, systolic CHF with prior EF 45-50% on 11/13/17, cor-pulmonale, morbid obesity, and hypothyroidism p/w weakness and inability to ambulate. Patient fell 2 days ago with no evidence of fractures on imaging studies which was taken at [facility] and was found to have a UTI, Ucx pending treated with Bactrim DS 2 doses but was unable to ambulate due to right knee pain. Xrays ans well s CT of right knee shows osteopenia with a small right joint effusion. Initial labs show acute renal insufficiency, with cr 1.8 (baseline 1.4-1.7) also on her baseline 4L NC 02 dependent, CBC shows anemia which is chronic with baseline of 8-10.2 per labs in [facility], with no reports of melena, hematochezia, GI symptoms on Xarelto. Roldan was recently changed on 09/30/18 at [facility]. Per ED: She fell a few nights ago at home. She was going the bathroom and started to feel weak and went down onto her knees. She is worsening right knee pain. She was seen at [facility] at night, they have discharge instructions with her. It sounds like they did a head CT noting that she is on anticoagulants but she denies hitting her head. That was reportedly normal. Also had a normal knee x-ray except for osteoarthritis. She was diagnosed with a UTI as well and put on Bactrim, and there was also remarked on the discharge instructions of mild hyperkalemia that needed to be rechecked. Her pain is getting worse and she is not taking anything for pain. She cannot walk on the right leg due to pain.) History - Past Medical History Cardiovascular: reports: Congestive heart failure, Hypertension, High cholesterol, Coronary artery disease Respiratory: reports: COPD, Emphysema, Shortness of breath Neuro: reports: None, TIA (on xarelto) Endocrine/Autoimmune: reports: Type 2 diabetes, HyPOthyroidism GI: reports: GERD, Hemorrhoids BI TECHNICAL LEAD: reports: None : reports: Incontinence, Indwelling catheter, Other (hx UTI's ) HEENT: reports: Chronic sinusitis, Chronic hearing loss Psych: reports: Depression Musculoskeletal: reports: Chronic back pain Derm: reports: Other MRSA Hx?: No - Past Surgical History General: reports: Cholecystectomy /BI TECHNICAL LEAD: reports: Hysterectomy - Family & Social History Family History: Mother: , Cancer, Father: , CAD, Diabetes, Type 2, Hypertension, Sister: , CAD, Cancer, Brother: , CAD Family History Comment/Other: Mother from an unknown type of cancer, father of CAD, HTN and he was diabetic, sister after complications of a CABG, another sister of cancer, a brother of CAD and patient has one sister who is alive and well. 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 She was for 32 years, but her about 4 years ago. She had 3 children, 3 girls and one boy. The boy at age 14 years. She raised her family in the state of [place]. Patient was a life-long smoker, but quit about 6 years ago after a really bad case of pneumonia. Patient denies alcohol, or other illicit drug use. She wishes to be a DNR. A long discussion about quality of life and possible upcoming procedures in the event she would need a cardiac cath. Patient was clear about not wanting anything invasive that would prolong her life. - Substance History Use: Uses substance without health or social issues: NONE - POLST Patient has POLST: Yes POLST Status: DNR Meds/Allgy - Home Medications Home Medications: Ambulatory Orders Medication Instructions Recorded Confirmed Atorvastatin Calcium 40 mg PO DAILY 11/13/17 10/02/18 HYDROcod/ACETAM 5/325 [[place] 5/325] 0.5 - 1 tab PO TID PRN 11/13/17 10/02/18 Insulin NPH Hum/Reg Insulin Hm 16 units SUBQ 0730 11/13/17 10/02/18 [Novolin 70-30 100 Unit/ml Vial] Insulin NPH Hum/Reg Insulin Hm 18 units SUBQ QPM 11/13/17 10/02/18 [Novolin 70-30 100 Unit/ml Vial] diphenhydrAMINE [Benadryl] 50 mg PO QPM 11/13/17 09/01/18 metFORMIN [Glucophage] 500 mg PO BIDWM 11/13/17 10/02/18 Furosemide 40 mg PO DAILY #60 tablet 11/15/17 10/02/18 Isosorbide Mononitrate ER [Imdur] 30 mg PO DAILY #60 tablet 11/15/17 10/02/18 Metoprolol Succinate [Toprol Xl] 50 mg PO DAILY #60 tablet 11/15/17 10/02/18 Spironolactone [Aldactone] 25 mg PO DAILY #60 tablet 11/15/17 10/02/18 Omeprazole 20 mg PO DAILY 08/31/18 10/02/18 Rivaroxaban [Xarelto] 15 mg PO DAILY 08/31/18 10/02/18 Levothyroxine [Synthroid] 175 mcg PO QDAC #10 tablet 09/02/18 10/02/18 Sulfamethoxazole/Trimethoprim 10/02/18 [Sulfamethoxazole-Tmp Ds Tablet] - Allergies Allergies/Adverse Reactions: Allergies Allergy/AdvReac Type Severity Reaction Status Date / Time No Known Drug Allergies Allergy Verified 10/02/18 15:44 Review of Systems - Constitutional Constitutional: reports: Weakness - Genitourinary Genitourinary: reports: Incontinence, Other (indwelling roldan cath since august changed 2 days ago) Prior Level of Functionality: patient was walking prior to fall Skin: Irritation to sacrum/buttocks Exam - Vital Signs Vital Signs: HD stable, afebrile, non-tachypneic non-tachycardic on 3L NC with 93% o2 saturation, BP 137/59 - Physical Exam General Appearance: positive: No acute distress, Lethargic, Other (Morbidly obese) Eyes Bilateral: positive: PERRL, EOMI, Conjunctivae nml ENT: positive: Dry mucous membranes Neck: positive: Nml inspection, Thyroid nml, No JVD, Trachea midline. negative: Carotid bruit Respiratory: positive: Chest non-tender, No respiratory distress, Breath sounds nml Cardiovascular: positive: Regular rate & rhythm, No murmur, No gallop. negative: JVD present, Gallop/S4, Friction rub Peripheral Pulses: positive: 2+ Abdomen: positive: Non-tender, No organomegaly, Nml bowel sounds, No distention Back: positive: Nml inspection. negative: CVA tenderness (R), CVA tenderness (L) Skin: positive: Erythema to buttocks and sacrum with some scale, Warm, tender Neurologic/Psychiatric: positive: Oriented x3, CN's nml (2-12) Conclusion/Plan - Problem List (1) UTI (urinary tract infection), present on admission Conclusion/Plan: Patient with hx UTI's with 2 admisions in 2018 with treatment of UTI, and was recently diagnosed 2 days prior to admission at [facility] with UCx pending per ED, and repeat UA/Ucx likely contaminant on this admission. UA on file in [facility] on 08/31/18 is negative. Will treat empirically with IV rocephin and await results from [facility]. Would hold off on BACRIM DS due to nephrotoxicity and KISHA. Qualifiers: Urinary tract infection type: catheter-associated UTI Indwelling urinary catheter type: indwelling urethral catheter Encounter type: initial encounter Qualified Code(s): T83.511A - Infection and inflammatory reaction due to indwelling urethral catheter, initial encounter; N39.0 - Urinary tract infection, site not specified (2) Acute renal insufficiency Conclusion/Plan: Patient with likely Diabetic CKD stage 3 baseline at 1.4-1.7 per prior labs with KISHA with creatinine of 1.8, likely diuretic induced, to have some hydration to perfuse kidneys and avoid further nehrotoxic agents, hold LASIX, Bactrim DS, Aldactone, and metformin for now. (3) Contusion of right knee Conclusion/Plan: Xray and CT at [facility] 2 days prior to admission were negative other than a small knee effusion. Patient on xarelto and would need to monitor closely to avoid possible Hemarthrosis. Osteopenia seen on imaging. Would order a uric acid to eval for gout, although don't see this on PMhx. Diclofenac gel 1% QID along with [place] for pain relieve, would avoid NSAID's for now as she has KISHA/CKD-3. Qualifiers: Encounter type: initial encounter Qualified Code(s): S80.01XA - Contusion of right knee, initial encounter (5) Anemia Conclusion/Plan: Appears to be anemia of chronic disease with some macrocytois. Would follow H/H closely and trend as she is on Xarelto. Qualifiers: Anemia type: due to chronic kidney disease Chronic kidney disease stage: stage 3 (moderate) Qualified Code(s): N18.3 - Chronic kidney disease, stage 3 (moderate); D63.1 - Anemia in chronic kidney disease (6) Diabetes mellitus type 2 in obese Conclusion/Plan: IDDM type 2. Will place on ISS low dose correctional, hold MFM for now, Carb controlled diet, HgbA1C to follow, basal coverage if needed. (7) Chronic systolic (congestive) heart failure Conclusion/Plan: Patient with prior ECHO on 11/13/17 with EF 45-50% with pulm htn, increased RVP with CLEO, RVD c/w cor-pulmonale and 02 dependent on 3-5 L NC to continue. CAD per hx as she resumes statin, metoprolol. hold lasix/aldactone for now may need repeat echo as outpatient for eval of EF improvement while on GDMtx. (8) Generalized weakness Conclusion/Plan: Would have PT/OT eval for baseline and antalgic gait associated with Right knee contusion with mild small knee effusion. (9) Pressure Sacral/Buttocks Ulcer stage 1, present on admission secondary to irritation of soft tissues from stasis and urinary incontinence. Apply A/D ointment, barrier protection. Wound care consult. - Lab Results Lab results reviewed: Yes - Diagnostic Imaging Results Diagnostic Imaging Results Comments: Outside imaging studies per ED were negative for right knee fracture - EKG Results EKG Interpreted Independently: Yes Core Measures - Anticipated LOS I expect patient to be DC'd or transferred within 96 hours.: Yes - Issues Hospital Issues and Management Plan: Patient to be admitted for treatment of recurrent UTI, generalized weakness s/p fall with antalgic gait associated with her fall 2 days prior - DVT/VTE - Prophylaxis VTE/DVT Device ordered at admit?: Yes VTE/DVT Prophylaxis med ordered at admit?: No Not Ordered - Medical Reason: Not indicated (already on xarelto) - Stroke - Rehab Assessment Rehab services assessment to be ordered?: Yes - AMI - Statin at Admit Aspirin Prescribed on Admit: No Not Ordered - Medical Reason: Not indicated (on xarelto)
[2018-10-02 21:02] LABS: HB2 TOTAL 9.8 g/dL; HEMOGLOBIN A1C 0.4 g/dL; HEMOGLOBIN A1C % 5.9 % (4.6-6.2)
[2018-10-02] MEDS: INSULIN ASPART 300 UNIT/3 ML PEN SUBQ SCH (21:36)
[2018-10-02] MEDS: A & D OINTMENT 5 GM PACKET TOP PRN (22:02)
[2018-10-03] MEDS: SODIUM CHLORIDE FLUSH 0.9% 10 ML SYRINGE IVP SCH ×2 (00:02→08:07)
[2018-10-03] MEDS: A & D OINTMENT 5 GM PACKET TOP PRN ×2 (00:55→08:11)
[2018-10-03] MEDS ORDERED: PANTOPRAZOLE 40 MG TABLET PO SCH (07:00)
[2018-10-03] MEDS ORDERED: LEVOTHYROXINE 75 MCG TABLET PO SCH (07:00)
[2018-10-03] MEDS ORDERED: LEVOTHYROXINE 100 MCG TABLET PO SCH ×2 (07:00)
[2018-10-03] MEDS: INSULIN ASPART 300 UNIT/3 ML PEN SUBQ SCH ×2 (08:08→11:36)
[2018-10-03 08:38] LABS: BASOPHILS # (AUTO) 0.1 10^3/uL (0.0-0.1); EOSINOPHILS # (AUTO) 0.1 10^3/uL (0.0-0.7); HGB - HEMOGLOBIN 9.3 g/dL (12.0-16.0); LYMPHOCYTES # (AUTO) 0.9 10^3/uL (1.5-3.5); LYMPHOCYTES % (AUTO) 13.5 %; MEAN CORPUSCULAR HEMOGLOBIN 29.5 pg (27.0-31.0); MEAN CORPUSCULAR HGB CONC 32.2 g/dL (32.0-36.0); MEAN CORPUSCULAR VOLUME 91.8 fL (81.0-99.0); MEAN PLATELET VOLUME 7.9 fL (7.9-10.8); MONOCYTES # (AUTO) 0.8 10^3/uL (0.0-1.0); MONOCYTES % (AUTO) 11.8 %; NEUTROPHILS % (AUTO) 71.7 %; PLT - PLATELET COUNT 227 10^3/uL (130-450); RED BLOOD COUNT 3.14 10^6/uL (4.20-5.40); RED CELL DISTRIBUTION WIDTH 15.1 % (12.0-15.0)
[2018-10-03 08:50] LABS: ALBUMIN 3.3 g/dL (3.2-5.5); BILIRUBIN,TOTAL 0.4 mg/dL (0.2-1.0); CALCIUM 8.6 mg/dL (8.5-10.3); CREATININE 1.7 mg/dL (0.4-1.0); MAGNESIUM 1.5 mg/dL (1.7-2.8); PHOSPHORUS 2.8 mg/dL (2.5-4.6); TOTAL PROTEIN 6.7 g/dL (6.7-8.2)
[2018-10-03] MEDS ORDERED: RIVAROXABAN 15 MG TABLET PO SCH (09:00)
[2018-10-03] MEDS ORDERED: POLYETHYLENE GLYCOL 3350 17 GM PACKET PO SCH (09:00)
[2018-10-03] MEDS ORDERED: ATORVASTATIN 40 MG TABLET PO SCH (09:00)
[2018-10-03] MEDS ORDERED: ISOSORBIDE MONONITRATE ER 30 MG TABLET PO SCH (09:00)
[2018-10-03] MEDS ORDERED: METOPROLOL SUCCINATE 50 MG TABLET PO SCH ×2 (09:00)
[2018-10-03] MEDS: VOLTAREN 1% TOP SCH ×3 (10:53→15:19)
[2018-10-03] MEDS ORDERED: MAGNESIUM OXIDE 400 MG TABLET PO SCH (11:00)
[2018-10-03] MEDS ORDERED: MIN OIL/DIMETHICON/COCONUT OIL 92 GM TUBE TOP PRN (12:19)
[2018-10-03 14:44] LABS: BILIRUBIN,URINE NEGATIVE (NEGATIVE); GLUCOSE, URINE (UA) NEGATIVE (NEGATIVE); KETONES,URINE (UA) NEGATIVE (NEGATIVE); LEUKOCYTE ESTERASE, URINE NEGATIVE (NEGATIVE); NITRITE,URINE NEGATIVE (NEGATIVE); OCCULT BLOOD,URINE LARGE (NEGATIVE); PH,URINE 5.5 PH (5.0-7.5); PROTEIN,URINE NEGATIVE (NEGATIVE); UROBILINOGEN,URINE 0.2 (NORMAL) E.U./dL (NORMAL)
[2018-10-03 14:46] LABS: CLARITY,URINE HAZY (CLEAR)
[2018-10-03 14:53] LABS: WBC CLUMPS,URINE PRESENT
[2018-10-03 14:54] LABS: BACTERIA,URINE Few /HPF (None Seen); SQUAMOUS EPITHELIAL CELL,UR FEW Squamous (<= Few)
--- NOTE | 2018-10-03 15:10 | Discharge Plan ---
Discharge Plan Disposition: Home Health Service Condition: Stable Prescriptions: Ciprofloxacin HCl 250 mg PO BID 7 Days #14 tablet Diphenoxylate/Atropine [Lomotil] 1 each PO Q6H PRN #20 tablet PRN Reason: Diarrhea Levothyroxine Sodium 150 mcg PO DAILY #30 tablet Nystatin Cream [Mycostatin Cream] 1 gm TOP BID #1 tube Saccharomyces Boulardii [Florastor] 250 mg PO BID #60 capsule Diet: Diabetic Activity Restrictions: Activity as Tolerated Assistance Devices: Walker Weight Bearing: Full Weight Additional Instructions or Follow Up instructions: You were admitted with weakness and an ongoing bladder infection. You were given IV treatment for the UTI, and a new catheter was placed and a new urine sample is pending. Please continue this treatment for the next 7 days in a pill form. Your hemoglobin A1C was a bit low at 5.9%, so please stop the Metformin and reduce the AM dose of NPH to just 16 units. You were concerned about the loose stools and by stopping the Metformin this will reduce the occurrence of the loose stools. I have prescribed Lomotil which will help with the diarrhea at home. Your TSH shows that her Synthroid dose is too high, so please continue on 150 mcg daily and get this level re-checked in about 4 weeks. Taking too much thyroid supplement can lead to heart problems. We discussed a Palliative care consult, so this will need to be ordered by your primary care provider. I have informed Bell Lim of your wish. The Palliative care contact # is [phone] and their hours are Sunday-Sunday 8am- 5pm. Orders for home health to provide physical therapy, occupational therapy, [facility] services and a hospital bed have been ordered. Please return to the ED for symptoms of profound weakness, lethargy, or infect ion. Follow-Up Care: Home Health - RN, Home Health - PT, Home Health - OT, [facility] - Wound/Ostomy No Smoking: If you smoke, Please STOP! Call for help. Follow-up with: Jose Luis Metcalf MD [Primary Care Provider] -
--- NOTE | 2018-10-03 15:13 | DISCHARGE SUMMARY ---
"Discharge Summary Admit Date: 10/02/18 Discharge Date: 10/03/18 Discharging Provider: SHANNEN Lawrence Primary Care Provider: Jose Luis Metcalf Code Status: Do Not Attempt Resuscitation Condition at Discharge: Stable Discharge Disposition: 06 Home Health Service - DIAGNOSES Admission Diagnoses: Urinary tract infection, site not specified (N39.0) Weakness (R53.1) Contusion of right knee, initial encounter (S80.01XA) Chronic systolic (congestive) heart failure (I50.22) Disorder of kidney and ureter, unspecified (N28.9) Anemia, unspecified (D64.9) Unsteadiness on feet (R26.81) Pressure ulcer of sacral region, unspecified stage (L89.159) Discharge Diagnoses with Status of Each Condition: Urinary tract infection, site not specified (N39.0) ongoing related to chronic roldan, continue oral antibiotics. Weakness (R53.1) chronic, home health care ordered for PT/OT/nursing cares. Contusion of right knee, initial encounter (S80.01XA) stable, improved. Chronic systolic (congestive) heart failure (I50.22) chronic, stable, resume diuretics at home. Cor pulmonale (I27.81) chronic, stable, resume diuretics at home. Disorder of kidney and ureter, unspecified (N28.9) chronic, indwelling roldan for wound protection. Anemia, unspecified (D64.9) chronic, stable. Unsteadiness on feet (R26.81) chronic, stable. Pressure ulcer of sacral region, unspecified stage (L89.159) resolved, excoriated skin in shay-rectal area. Fall (W19.XXXA) chronic, stable. Diabetes mellitus type 2, insulin dependent (E11.9) chronic, stop Metformin due to poor kidney function. Supplemental oxygen dependent (Z99.81) chronic, stable. 3-5L per nasal cannula. - HPI History of Present Illness: HPI per Dr. Garcia: Aurora Pillai is a morbidly obese 73-year old white female with a past medical history of chronic pain, chronic indwelling roldan, fractured toes, IDDM type 2, COPD-emphysema, CAD, HTN, hyperlipidemia, systolic CHF with prior EF 45-50% on 11/13/17, cor-pulmonale, morbid obesity, and hypothyroidism p/w weakness and inability to ambulate. Patient fell 2 days ago with no evidence of fractures on imaging studies which was taken at [facility] and was found to have a UTI, Ucx pending treated with Bactrim DS 2 doses but was unable to ambulate due to right knee pain. Xrays ans well s CT of right knee shows osteopenia with a small right joint effusion. Initial labs show acute renal insufficiency, with cr 1.8 (baseline 1.4-1.7) also on her baseline 4L NC 02 dependent, CBC shows anemia which is chronic with baseline of 8-10.2 per labs in [facility], with no reports of melena, hematochezia, GI symptoms on Xarelto. Roldan was recently changed on 09/30/18 at [facility]. Per ED: She fell a few nights ago at home. She was going the bathroom and started to feel weak and went down onto her knees. She is worsening right knee pain. She was seen at [facility] at night, they have discharge instructions with her. It sounds like they did a head CT noting that she is on anticoagulants but she denies hitting her head. That was reportedly normal. Also had a normal knee x-ray except for osteoarthritis. She was diagnosed with a UTI as well and put on Bactrim, and there was also remarked on the discharge instructions of mild hyperkalemia that needed to be rechecked. Her pain is getting worse and she is not taking anything for pain. She cannot walk on the right leg due to pain. - CONSULTS | PROCEDURES Consultations: Palliative notified of upcoming consult, patient given contact info. - HOSPITAL COURSE Hospital Course: The patient underwent a physical therapy evaluation who recommended home health services for PT/OT, which was ordered. The patient's indwelling roldan was replaced and a new urine culture is pending. She was treated with IV rocephin and continued on PO cipro for the next 7 days. A TSH was low so, her Synthroid dose was reduced. Her hemoglobin A1C was also low at 5.9%, so given her CKD her Metformin was stopped and her NPH was reduced by only 2 units to make it an even 16 units BID. A discussion between myself, the patient, and her daughter was made regarding Palliative care. This has been recommended to be ordered by PCP, and Bell Lim was informed. The patient was medically stable and sent home with daughter and upcoming home health. - ALLERGIES Allergies/Adverse Reactions: Allergies Allergy/AdvReac Type Severity Reaction Status Date / Time No Known Drug Allergies Allergy Verified 10/02/18 15:44 - MEDICATIONS Home Medications: Ambulatory Orders Medication Instructions Recorded Confirmed Atorvastatin Calcium 40 mg PO DAILY 11/13/17 10/03/18 HYDROcod/ACETAM 5/325 [Eldena 5/325] 0.5 - 1 tab PO TID PRN 11/13/17 10/03/18 Insulin NPH Hum/Reg Insulin Hm 16 units SUBQ 0730 11/13/17 10/03/18 [Novolin 70-30 100 Unit/ml Vial] diphenhydrAMINE [Benadryl] 50 mg PO QPM PRN 11/13/17 10/03/18 Isosorbide Mononitrate ER [Imdur] 30 mg PO DAILY #60 tablet 11/15/17 10/03/18 Metoprolol Succinate [Toprol Xl] 50 mg PO DAILY #60 tablet 11/15/17 10/03/18 Spironolactone [Aldactone] 25 mg PO DAILY #60 tablet 11/15/17 10/03/18 Omeprazole 20 mg PO DAILY 08/31/18 10/03/18 Ciprofloxacin HCl 250 mg PO BID 7 Days #14 tablet 10/03/18 Diphenoxylate/Atropine [Lomotil] 1 each PO Q6H PRN #20 tablet 10/03/18 Furosemide 20 mg PO BID 10/03/18 10/03/18 Insulin NPH Hum/Reg Insulin Hm 16 units SUBQ QPM #1 10/03/18 10/03/18 [Novolin 70-30 100 Unit/ml Vial] Levothyroxine Sodium 150 mcg PO DAILY #30 tablet 10/03/18 Nystatin Cream [Mycostatin Cream] 1 gm TOP BID #1 tube 10/03/18 Saccharomyces Boulardii [Florastor] 250 mg PO BID #60 capsule 10/03/18 - PHYSICAL EXAM AT DISCHARGE General Appearance: positive: No acute distress, Alert, Lethargic Eyes Bilateral: positive: PERRL ENT: positive: Pharynx nml, No signs of dehydration Neck: positive: Thyroid nml, No JVD, Trachea midline Respiratory: positive: Chest non-tender, No respiratory distress, Rhonchi Cardiovascular: positive: No gallop, Irregularly irregular, Systolic murmur Peripheral Pulses: positive: 1+ Abdomen: positive: Non-tender, Nml bowel sounds, Other (obese, soft) Back: positive: Nml inspection Skin: positive: No rash, Warm, Dry, Pallor Extremities: positive: Non-tender, Pedal edema (chronic BLE edema), Joint swelling Neurologic/Psychiatric: positive: Oriented x3, CN's nml (2-12), Weakness, Sensory loss, Slurred/abnml speech (sluggish speech), Depressed mood/affect Reflexes: Bicep (R): 2+, Bicep (L): 2+ - LABS Result Diagrams: 10/03/18 08:30 10/03/18 08:30 - DIAGNOSTIC IMAGING Diagnostic Imaging Results: Final report reviewed Diagnostic Imaging Results Comments: EXAM: RIGHT HIP AND PELVIS RADIOGRAPHY EXAM DATE: 10/02/2018 03:44 PM IMPRESSION: Osteopenia. No definite acute fracture or dislocation of the right hip. Moderate degenerative joint disease. EXAM: RIGHT KNEE RADIOGRAPHY EXAM DATE: 10/02/2018 03:44 PM IMPRESSION: Osteopenia. No acute fracture or dislocation visualized. Severe tri compartmental degenerative joint disease. Small/moderate right knee joint effusion. EXAM: RIGHT KNEE CT WITHOUT CONTRAST EXAM DATE: 10/02/2018 06:15 PM IMPRESSION: 1. Osteopenia. 2. No acute fracture. 3. Tricompartmental osteoarthritis at the right knee. Moderate to severe osteoarthritis at the proximal tibiofibular joint. 4. Small to moderate sized joint effusion. 5. Pe ripheral vascular disease. - SEPSIS Current Stage of Sepsis: Ruled out - FOLLOW UP Follow Up: Prescriptions: Ciprofloxacin HCl 250 mg PO BID 7 Days #14 tablet Diphenoxylate/Atropine [Lomotil] 1 each PO Q6H PRN #20 tablet PRN Reason: Diarrhea Levothyroxine Sodium 150 mcg PO DAILY #30 tablet Nystatin Cream [Mycostatin Cream] 1 gm TOP BID #1 tube Saccharomyces Boulardii [Florastor] 250 mg PO BID #60 capsule Additional Instructions or Follow Up instructions: You were admitted with weakness and an ongoing bladder infection. You were given IV treatment for the UTI, and a new catheter was placed and a new urine sample is pending. Please continue this treatment for the next 7 days in a pill form. Your hemoglobin A1C was a bit low at 5.9%, so please stop the Metformin and reduce the AM dose of NPH to just 16 units. You were concerned about the loose stools and by stopping the Metformin this will reduce the occurrence of the loose stools. I have prescribed Lomotil which will help with the diarrhea at home. Your TSH shows that her Synthroid dose is too high, so please continue on 150 mcg daily and get this level re-checked in about 4 weeks. Taking too much thyroid supplement can lead to heart problems. We discussed a Palliative care consult, so this will need to be ordered by your primary care provider. I have informed Bell Lim of your wish. The Palliative care contact # is [phone] and their hours are Sunday-Sunday 8am- 5pm. Orders for home health to provide physical therapy, occupational therapy, custodial services and a hospital bed have been ordered. Please return to the ED for symptoms of profound weakness, lethargy, or infection. - TIME SPENT Time Spent in Discharge (Minutes): 50"
[2018-10-03 15:48] VITALS: BP 140/56
[2018-10-03] MEDS ORDERED: DIPHENOX/ATROPINE 2.5/0.025 MG TABLET PO PRN (15:55)
[2018-10-03] MEDS ORDERED: cefTRIAXone 1 GM in SODIUM CHLORIDE 0.9% MINIBAG 100 ML IV SCH (20:00)
== END 2018-10-03 16:45 | disposition home health service (06) ==
LOC: EDUNIT# → ED 15:30 → MS2 20:19
PROVIDERS: ADMIT Family Medicine; ATTEND Nurse Practitioner
DX: T83.511A Infection and inflammatory reaction due to indwelling urethral catheter, initial encounter (principal); R53.1 Weakness; S80.01XA Contusion of right knee, initial encounter; I13.0 Hypertensive heart and chronic kidney disease with heart failure and stage 1 through stage 4 chronic kidney disease, or unspecified chronic kidney disease; N17.9 Acute kidney failure, unspecified; Z79.4 Long term (current) use of insulin; I50.22 Chronic systolic (congestive) heart failure; I27.81 Cor pulmonale (chronic); E11.22 Type 2 diabetes mellitus with diabetic chronic kidney disease; N18.3 Chronic kidney disease, stage 3 (moderate); D63.1 Anemia in chronic kidney disease; M17.11 Unilateral primary osteoarthritis, right knee; R26.81 Unsteadiness on feet; J43.9 Emphysema, unspecified; L89.151 Pressure ulcer of sacral region, stage 1; Z99.81 Dependence on supplemental oxygen; Z91.81 History of falling; E66.01 Morbid (severe) obesity due to excess calories; Z68.37 Body mass index [BMI] 37.0-37.9, adult; E87.5 Hyperkalemia; M85.88 Other specified disorders of bone density and structure, other site; E03.9 Hypothyroidism, unspecified; I25.10 Atherosclerotic heart disease of native coronary artery without angina pectoris; E78.5 Hyperlipidemia, unspecified
CPT/HCPCS: 36415; 73502; 73564; 73700; 80053; 81001; 83036; 83605; 83690; 83735; 83880; 84100; 84134; 84443; 85025; 87045; 87046; 87086; 87493; 96365; 97162; 99284; A6250; A9270; G0378; G8978; G8979; 81003

== ENCOUNTER 2018-10-28 13:55 | Outpatient (CLI) | payer MEDICARE, OTHER ==
[2018-10-28 15:54] LABS: BILIRUBIN,URINE NEGATIVE (NEGATIVE); CLARITY,URINE HAZY (CLEAR); GLUCOSE, URINE (UA) NEGATIVE (NEGATIVE); KETONES,URINE (UA) NEGATIVE (NEGATIVE); LEUKOCYTE ESTERASE, URINE SMALL (NEGATIVE); NITRITE,URINE NEGATIVE (NEGATIVE); OCCULT BLOOD,URINE NEGATIVE (NEGATIVE); PH,URINE 6.5 PH (5.0-7.5); PROTEIN,URINE NEGATIVE (NEGATIVE); UROBILINOGEN,URINE 0.2 (NORMAL) E.U./dL (NORMAL)
[2018-10-28 16:01] LABS: BACTERIA,URINE Few /HPF (None Seen); RBC,URINE 0-5 /HPF (0-5); SQUAMOUS EPITHELIAL CELL,UR RARE Squamous (<= Few); WBC CLUMPS,URINE PRESENT
== END 2018-10-28 23:59 | disposition home or self-care (01) ==
LOC: LAB.R 13:55
PROVIDERS: ATTEND Internal Medicine
DX: T83.511A Infection and inflammatory reaction due to indwelling urethral catheter, initial encounter (principal)
CPT/HCPCS: 81001; 81003; 87077; 87086; 87181

== ENCOUNTER 2018-11-05 13:00 | Outpatient (CLI) | payer MEDICARE, OTHER ==
--- NOTE | 2018-11-05 17:25 | CONSULTATION NOTE ---
Palliative Care Consultation - Referral Referring Provider: Dr. Jose Luis Metcalf Time of Visit: [id number] Referral setting: Home (It is a taxing and considerable effort for the patient to leave the home secondary to fatigue/dypsnea and morbid obesity) Referral Reason: COPD/CHF/ Goals of Care - Information Sources Records reviewed: RN notes reviewed, Previous records reviewed History/Review of Systems obtained from: Patient, Family (daughter Ryann present for visit) Exam limitations: No limitations - History of Present Illness Brief History of Present Illness: This is a 73-year-old woman who has had multiple hospitalizations related to her ongoing long list of chronic illnesses. Patient is morbidly obese, as she has a chronic indwelling Roldan catheter of 2 years, she has been hospitalized for UTIs. She did take a turn for the worse when she fractured her toes, has not returned back to her previous level of functioning. She has COPD, CAD, CKD IV, hypertension, hyperlipidemia, systolic heart failure with prior ejection fraction of 45-50%, cor pulmonale, hypothyroidism, diabetes type 2, and significant right knee pain that limits her mobility. She is cared for at home by her daughter, and support of the home health care team. She lives with a menagerie of animals including 2 dogs and 5 cats. Patient does report had an episode last week, of decreased consciousness, more confusion, sleeping more, she calls these "sick spells", her UTI/urine specimen had few bacteria, count 10,00-50,000 colonies, and though + for EBSL, did not receive antibiotics as attributed to colonization. She did recovery to baseline after several days. There was concern possibly of TIA, but again,she is return back to her baseline. Patient did not have fever or chills, no change in spasms or dysuria. Medical/Surgical History - Past Medical History Cardiovascular: reports: Congestive heart failure, Hypertension Respiratory: reports: COPD, Emphysema, Shortness of breath Neuro: None Neuro: reports: TIA, Peripheral neuropathy Endocrine/Autoimmune: reports: Type 2 diabetes, HyPOthyroidism GI: reports: GERD, Chronic constipation, Hemorrhoids TOURIST HOME KEEPER: reports: None : reports: Incontinence, Indwelling catheter HEENT: reports: Chronic sinusitis, Chronic hearing loss Psych: reports: Depression, Anxiety Musculoskeletal: reports: Osteoarthritis, Chronic back pain Derm: reports: Other MRSA Hx?: No - Past Surgical History General: reports: Cholecystectomy /TOURIST HOME KEEPER: reports: Hysterectomy - Substance History Use: Uses substance without health or social issues: Tobacco (quit 6 years ago; no etoh use) Social History - Living Situation Living arrangement: At home Living Situation: With family (lives with daughter Ryann for 5 years; moved in with her when her ; relocated from [place]; patient has another daughter Margaret, still in [place].) Support System: Currently receiving support services through home health with nursing for cath changes, PT for strengthening, and home health aide for bathing. Family History - Family History Family History: Mother: , Cancer, Father: , CAD, Diabetes, Type 2, Sister: , Cancer Medications/Allergies - Medications Home Medications: Ambulatory Orders Medication Instructions Recorded Confirmed Atorvastatin Calcium 40 mg PO DAILY 11/13/17 11/05/18 HYDROcod/ACETAM 5/325 [[place] 5/325] 1 tab PO TID PRN 11/13/17 11/05/18 Insulin NPH Hum/Reg Insulin Hm 16 units SUBQ 0730 11/13/17 11/05/18 [Novolin 70-30 100 Unit/ml Vial] Isosorbide Mononitrate ER [Imdur] 30 mg PO DAILY #60 tablet 11/15/17 11/05/18 Metoprolol Succinate [Toprol Xl] 50 mg PO DAILY #60 tablet 11/15/17 11/05/18 Spironolactone [Aldactone] 25 mg PO DAILY #60 tablet 11/15/17 11/05/18 Omeprazole 20 mg PO DAILY 08/31/18 11/05/18 Diphenoxylate/Atropine [Lomotil] 1 each PO Q6H PRN #20 tablet 10/03/18 11/05/18 Furosemide 20 mg PO BID 10/03/18 11/05/18 Insulin NPH Hum/Reg Insulin Hm 16 units SUBQ QPM #1 10/03/18 11/05/18 [Novolin 70-30 100 Unit/ml Vial] Levothyroxine Sodium 150 mcg PO DAILY #30 tablet 10/03/18 11/05/18 Nystatin Cream [Mycostatin Cream] 1 gm TOP BID #1 tube 10/03/18 11/05/18 Saccharomyces Boulardii [Florastor] 250 mg PO BID #60 capsule 10/03/18 11/05/18 Bisacodyl [Dulcolax] 5 mg PO BID PRN 11/05/18 11/05/18 Rivaroxaban [Xarelto] 15 mg PO DAILY 11/05/18 11/05/18 - Allergies Allergies/Adverse Reactions: Allergies Allergy/AdvReac Type Severity Reaction Status Date / Time No Known Drug Allergies Allergy Verified 10/02/18 15:44 Review of Systems - Constitutional Constitutional: reports: Fatigue. denies: Fever - Eyes Eyes: reports: Vision loss - Ears, Nose & Throat Ears, Nose & Throat: reports: Hearing loss, Nasal congestion, Dry mouth - Cardiovascular Cardiovascular: reports: Edema, Exertional dyspnea, Decr. exercise tolerance. denies: Chest pain - Respiratory Respiratory: reports: SOB with exertion. denies: Cough, Wheezing, SOB at rest - Gastrointestinal Gastrointestinal: reports: Constipation, Good appetite. denies: Nausea - Genitourinary Genitourinary: reports: Other (has roldan catheter for 2 years; recurrent UTIS) - Musculoskeletal Musculoskeletal: reports: Stiffness, Limited range of motion, Muscle weakness, Joint pain (right knee pain; managed with hydrocodone TID), Assistive devices (uses walker; sleeps in recliner) - Integumentary Integumentary: reports: Dryness, Other (intermmittent presurre on coccyx) - Neurological Neurological: reports: General weakness - Psychiatric Psychiatric: reports: Depression - Endocrine Endocrine: reports: Diabetes type 2 - Hematologic/Lymphatic Hematologic/Lymphatic: reports: Anemia, Bruising, Recurrent infections - All Other Systems All Other Systems: reports: Reviewed and negative Physical Exam - Vital Signs Temperature: 96.8 C Pulse Rate: 67 Respiratory Rate: 18 O2 Saturation: 90 (3 liters) Blood Pressure: 144/72 - Physical Exam General Appearance: positive: No acute distress Eyes Bilateral: positive: Normal inspection ENT: positive: No signs of dehydration Neck: positive: No JVD, Trachea midline Cardiovascular: positive: Regular rate & rhythm Respiratory: positive: Diminished throughout, Other (dry expiratory crackles in bases) Abdomen: positive: Soft, Obese Skin: positive: Pallor Extremities: positive: Pedal edema Neurologic/Psychiatric: positive: Oriented x3, Mood/affect nml, Weakness, Flat affect Palliative Care - POLST Patient has POLST: Yes POLST Status: DNR, Selective Treatment Pain: Pain unchanged, Location (right knee; worsening with ambulation; takes one tab vicodin TID feels this is adequate) Tiredness/Fatigue: Moderate (4-6) Drowsiness/Sedation: Moderate (4-6) Nausea: None Depression: Mild (1-3) Anxiety: Moderate (4-6) Dyspnea: Moderate (4-6) Anorexia: None Sleep: Sleeps well Constipation: Yes, Opoid induced, Intermittent constipation Feelings of wellbeing/Perceived Quality of Life: Fair, Acceptable, Worsening Performance Status: Patient has made some progress with strengthening. She is ambulatory with her walker, is able to get up and down but does need supervised and contact assist for ambulation. She does have a home health aide bathing 1 time a week, does not feel that this is more necessary. Patient has not had any recent falls. - Palliative Care Discussion: Patient has multiple comorbidities, she does perceive herself as "working her self down". Reports she does perceive herself as declining. She very much hates to go to the hospital, but at this point would still weigh benefits and bu rdens and going in. She and her daughter have lived together for 5 years, and finds this very comforting. She likes to watch TV, particularly game shows and met a goal shows. When asked what would not be acceptable quality of life, she perceives it would be when she is no longer able to get up and move around, or no hope for improvement back to her current baseline. At end of life she would like to be at home with hospice, she did have this experience with her . Her daughter was there also for the last week, and found this experience positive as well as recently had a friend on hospice and found the team inspiring. She does perceive currently she does have quality of life, she does have a SU ST in place which is do not attempt resuscitation and selective treatments. She does not have a D POA for healthcare, though it would make sense to have her daughter Ryann be primary, form was given and they will complete. Discussed the role of palliative care, patient without any significant symptom management needs, currently being supported by home health. We did discuss what might be of benefit in the future, but will put patient on hold unless has further decline. Results - Lab Results Lab results reviewed: Yes Impression and Recommendations - Palliative Care Impression: This is a feisty 73-year-old woman with multiple comorbidities including chronic indwelling Roldan catheter, history of fractured toes, type 2 diabetes, COPD/emphysema, systolic CHF, CKD, cor pulmonale, morbid obesity, increased right knee pain and decreased functional status. 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 She does sleep most of the time and spend a majority of her time in the recliner, putting her at high risk for continued skin issues and breakdown. Palliative care to provide evaluation, and support in the context of goals of care, patient presents with low symptom burden currently and has adequate support with home health care team. Recommendations/Counseling Done: 1. History of UTIs. Patient does present with multidrug-resistant colonization, she does have intermittent infections. Goal is to try and treat only for symptomology, this is often complex given patient's multiple chronic health problems, most often she presents with confusion, weakness, and disorientation. Counseling provided regarding the threshold for treatment, recently had UA, as she did return back to baseline without antibiotic treatment. This does create a dilemma, will continue to respond as able, recognizing patient remains at high risk for recurrent hospitalizations. 2. Generalized weakness. Patient does perceive herself as winding down, she still perceives she has good quality of life. She is working with home physical therapist to maintain and improve ambulation, strength for transfers, and ability to stay in the home. Patient's daughter is her primary caregiver, if patient were to become bedbound, this would definitely necessitate a higher level of care. Patient hoping to maintain as much independence as long as possible. Is a taxing and considerable effort for the patient to leave the home currently, palliative care will be available to make home visits if needed for acute illness/symptoms. 3. Stage II decub. Patient is quite sedentary, sleeps and spends most of her time in the recliner. At this point in time she does not have a pressure relief cushion currently. Will send recommended condition information out with home health. 4. Acute on chronic pain. Patient with right knee osteoarthritis, is managed currently on hydrocodone 1 tab 3 times a day. No change recommended currently. 5. Advanced care planning. Patient's goals are to stay at home, avoid hospital ization, at this point in time would accept intervention for acute symptoms that could be reversed, this would actually include hospitalization. Patient does perceive herself is deteriorating and getting weaker, her goal is to remain as independent as long as possible, as long as she has good quality of life would like to stay at home. Patient does have a SU ST in place/DNA R and limited interventions. She does need to define her D POA whom she is identified as her daughter Ryann theodore [phone]. D POA form was given to complete. Patient at end of life would like to consider being at home with hospice if possible. This was the route that she took with her , daughter was present and part of that conversation and support as well and see that as a positive. Patient scores on the prognostic JENNIFER INDEX A total score of 6. This looks at community dwelling adults age is 65 years and older and all cause 1 year mortality. She is scores a 6 which is about 24.9% risk of 1 year mortality,. Risk calculators cannot predict the future for any one individual they give an estimate of how many people with similar risk factors will live and , but cannot identify who will live and who will . Thank you Dr. Metcalf for asking the palliative care consult service to involved in care of your patient. Patient receiving fairly intense support through the home health care team currently. She currently presents with multiple chronic issues, but low symptom burden. Will be involved as issues arrive, otherwise patient will be low-frequency and/or put on hold. Time Spent: 60 minutes with greater than 50% of this done in counseling regarding goals of care, anticipatory guidance, symptoms, and advanced care planning.
== END 2018-11-05 13:01 | disposition home or self-care (01) ==
LOC: PC 13:00
PROVIDERS: ATTEND Nurse Practitioner Adult Health
DX: Z51.5 Encounter for palliative care (principal); J43.9 Emphysema, unspecified; I13.0 Hypertensive heart and chronic kidney disease with heart failure and stage 1 through stage 4 chronic kidney disease, or unspecified chronic kidney disease; I50.20 Unspecified systolic (congestive) heart failure; E11.22 Type 2 diabetes mellitus with diabetic chronic kidney disease; N18.4 Chronic kidney disease, stage 4 (severe); E66.01 Morbid (severe) obesity due to excess calories; I25.10 Atherosclerotic heart disease of native coronary artery without angina pectoris; Z87.440 Personal history of urinary (tract) infections; I27.81 Cor pulmonale (chronic); E03.9 Hypothyroidism, unspecified; M25.561 Pain in right knee; E11.42 Type 2 diabetes mellitus with diabetic polyneuropathy; K21.9 Gastro-esophageal reflux disease without esophagitis; K59.09 Other constipation; R32 Unspecified urinary incontinence; J32.9 Chronic sinusitis, unspecified; H91.90 Unspecified hearing loss, unspecified ear; F32.9 Major depressive disorder, single episode, unspecified; M19.90 Unspecified osteoarthritis, unspecified site; G89.29 Other chronic pain; M54.9 Dorsalgia, unspecified; Z87.891 Personal history of nicotine dependence; Z79.891 Long term (current) use of opiate analgesic; Z79.4 Long term (current) use of insulin; R53.1 Weakness; L89.92 Pressure ulcer of unspecified site, stage 2; Z66 Do not resuscitate
CPT/HCPCS: 99344

== ENCOUNTER 2018-11-26 13:00 | Outpatient (CLI) | payer MEDICARE, OTHER ==
[2018-11-26 19:08] LABS: BILIRUBIN,URINE NEGATIVE (NEGATIVE); GLUCOSE, URINE (UA) NEGATIVE (NEGATIVE); KETONES,URINE (UA) NEGATIVE (NEGATIVE); LEUKOCYTE ESTERASE, URINE MODERATE (NEGATIVE); NITRITE,URINE POSITIVE (NEGATIVE); OCCULT BLOOD,URINE NEGATIVE (NEGATIVE); PH,URINE 6.5 PH (5.0-7.5); PROTEIN,URINE NEGATIVE (NEGATIVE); UROBILINOGEN,URINE 0.2 (NORMAL) E.U./dL (NORMAL)
[2018-11-26 19:22] LABS: CLARITY,URINE CLEAR (CLEAR)
[2018-11-26 19:23] LABS: BACTERIA,URINE Moderate /HPF (None Seen); RBC,URINE None Seen /HPF (0-5); SQUAMOUS EPITHELIAL CELL,UR RARE Squamous (<= Few)
== END 2018-11-26 13:01 | disposition home or self-care (01) ==
LOC: LAB.WCP 13:00
PROVIDERS: ATTEND Internal Medicine
DX: T83.511A Infection and inflammatory reaction due to indwelling urethral catheter, initial encounter (principal); N39.0 Urinary tract infection, site not specified; E11.22 Type 2 diabetes mellitus with diabetic chronic kidney disease
CPT/HCPCS: 81001; 81003; 87077; 87086; 87181

== ENCOUNTER 2018-12-17 08:00 | Outpatient (CLI) | payer MEDICARE, OTHER ==
[2018-12-17 11:51] LABS: BILIRUBIN,URINE NEGATIVE (NEGATIVE); GLUCOSE, URINE (UA) NEGATIVE (NEGATIVE); KETONES,URINE (UA) NEGATIVE (NEGATIVE); LEUKOCYTE ESTERASE, URINE NEGATIVE (NEGATIVE); NITRITE,URINE NEGATIVE (NEGATIVE); OCCULT BLOOD,URINE NEGATIVE (NEGATIVE); PH,URINE 5.5 PH (5.0-7.5); PROTEIN,URINE NEGATIVE (NEGATIVE); UROBILINOGEN,URINE 0.2 (NORMAL) E.U./dL (NORMAL)
[2018-12-17 11:52] LABS: CLARITY,URINE CLEAR (CLEAR)
== END 2018-12-17 23:59 | disposition home or self-care (01) ==
LOC: LAB.R 08:00
PROVIDERS: ATTEND Internal Medicine
DX: N39.0 Urinary tract infection, site not specified (principal)
CPT/HCPCS: 81001; 81003; 87086

== ENCOUNTER 2018-12-20 08:41 | Outpatient (CLI) | payer MEDICARE, OTHER | END 2018-12-20 08:42 | disposition critical access hospital (66) | LOC: EMS 08:41 | PROVIDERS: ATTEND Surgery | DX: R53.83 Other fatigue (principal); R06.02 Shortness of breath | CPT/HCPCS: A0425; A0427 ==

== ENCOUNTER 2018-12-20 08:55 | Inpatient (IN) | payer MEDICARE, OTHER ==
--- NOTE | 2018-12-20 09:46 | ED Physician Documentation ---
History of Present Illness - Stated complaint Stated Complaint: LETHARGIC - Chief complaint Chief Complaint: Neuro - History obtained from History obtained from: Patient, EMS - Treatment prior to arrival Treatment prior to arrival: DuoNeb - Additonal information Additional information: The patient is a 73-year-old female with history of insulin-dependent diabetes, COPD, and chronic indwelling Blanco catheter, who presents via ambulance because of feeling too weak to get up from bed this morning. She reports decreased energy level over the past 3 or 4 days. She is sedentary at baseline, but is usually able to ambulate to the bathroom with the assistance of a walker and her daughter. This morning she was too weak to even get up from the bed. She terry es fever, chest pain, cough, or abdominal pain. She reports occasional shortness of breath, and did receive a DuoNeb nebulizer treatment by medics while enroute to the hospital. She reports vomiting twice this morning. Review of her medical records reveals hospitalization in October of this year for urinary tract infection. Review of Systems Constitutional: reports: Fatigue. denies: Fever, Chills Ears: denies: Tinnitus/ringing Nose: denies: Congestion Throat: denies: Sore throat Cardiac: denies: Chest pain / pressure Respiratory: reports: Dyspnea (occasionally). denies: Cough GI: reports: Vomiting (Twice this morning), Constipation. denies: Abdominal Pain, Diarrhea : reports: Other (Indwelling Blanco catheter) Skin: denies: Rash Musculoskeletal: denies: Back pain, Extremity pain Neurologic: reports: Generalized weakness. denies: Focal weakness, Numbness, Headache PD PAST MEDICAL HISTORY - Past Medical History Cardiovascular: Congestive heart failure, Hypertension Respiratory: COPD, Emphysema, Shortness of breath Neuro: None Endocrine/Autoimmune: Type 2 diabetes, HyPOthyroidism GI: GERD, Chronic constipation, Hemorrhoids WORKDAY MANAGER: None : Incontinence, Indwelling catheter HEENT: Chronic sinusitis, Chronic hearing loss Psych: Depression, Anxiety Musculoskeletal: Osteoarthritis, Chronic back pain Derm: Other - Past Surgical History Past Surgical History: Yes General: Cholecystectomy /WORKDAY MANAGER: Hysterectomy - Present Medications Home Medications: Ambulatory Orders Medication Instructions Recorded Confirmed Atorvastatin Calcium 40 mg PO DAILY 11/13/17 12/20/18 HYDROcod/ACETAM 5/325 [[place] 5/325] 1 tab PO TID PRN 11/13/17 12/20/18 Insulin NPH Hum/Reg Insulin Hm 16 units SUBQ 0730 11/13/17 12/20/18 [Novolin 70-30 100 Unit/ml Vial] Isosorbide Mononitrate ER [Imdur] 30 mg PO DAILY #60 tablet 11/15/17 12/20/18 Metoprolol Succinate [Toprol Xl] 50 mg PO DAILY #60 tablet 11/15/17 12/20/18 Spironolactone [Aldactone] 25 mg PO DAILY #60 tablet 11/15/17 12/20/18 Omeprazole 20 mg PO DAILY 08/31/18 12/20/18 Furosemide 20 mg PO BID 10/03/18 12/20/18 Insulin NPH Hum/Reg Insulin Hm 16 units SUBQ QPM #1 10/03/18 12/20/18 [Novolin 70-30 100 Unit/ml Vial] Levothyroxine Sodium 150 mcg PO DAILY #30 tablet 10/03/18 12/20/18 Saccharomyces Boulardii [Florastor] 250 mg PO BID #60 capsule 10/03/18 12/20/18 Bisacodyl [Dulcolax] 5 mg PO BID PRN 11/05/18 12/20/18 Rivaroxaban [Xarelto] 15 mg PO DAILY 11/05/18 12/20/18 - Allergies Allergies/Adverse Reactions: Allergies Allergy/AdvReac Type Severity Reaction Status Date / Time No Known Drug Allergies Allergy Verified 10/02/18 15:44 - Living Situation Living Arrangement: reports: At home - Social History Does the pt smoke?: No Smoking Status: Former smoker Does the pt drink ETOH?: No Does the pt have substance abuse?: No - Immunizations Immunizations are current?: Yes - POLST Patient has POLST: Yes POLST Status: DNR PD ED PE NORMAL - Vitals Vital signs reviewed: Yes (Systolic hypertension.) - General General: Alert and oriented X 3, Other (Deconditioned elderly female, who appears fatigued.) - HEENT HEENT: Atraumatic, Pharynx benign - Neck Neck: Supple, no meningeal sign, No adenopathy, No JVD - Cardiac Cardiac: RRR - Respiratory Respiratory: Clear bilaterally - Abdomen Abdomen: Soft, Non tender, Other (Obese) - Back Back: No CVA TTP - Derm Derm: No rash - Extremities Extremities: No calf tenderness / cord - Neuro Neuro: Alert and oriented X 3, No sensory deficit, Normal speech, Other (Generalized weakness, without focal motor deficit.) Results - Vitals Vitals: Vital Signs - 24 hr 12/20/18 12/20/18 12/20/18 08:57 10:33 12:22 Temperature 37.0 C Heart Rate 88 92 93 Respiratory 89 H 20 15 Rate Blood Pressure 151/78 H 157/76 H 158/71 H O2 Saturation 90 L 95 96 Oxygen O2 Source [Without Activity] Nasal cannula O2 Source Nasal cannula - EKG (time done) 10:24 Rate: Rate (enter#) (91) Rhythm: NSR, Other (premature complexes) [place]: Normal Intervals: Normal [place] QRS: Normal Ischemia: Normal ST segments Computer interpretation: Agree with computer - Labs Labs: Laboratory Tests 12/20/18 12/20/18 12/20/18 10:21 10:37 10:37 WBC 10.1 RBC 3.64 L Hgb 9.7 L Hct 31.8 L MCV 87.4 MCH 26.8 L MCHC 30.6 L RDW 16.9 H Plt Count 202 MPV 8.2 Neut # (Auto) 8.7 H Lymph # (Auto) 0.6 L [place] # (Auto) 0.7 Eos # (Auto) 0.1 Baso # (Auto) 0.1 Absolute Nucleated RBC 0.01 Nucleated RBC % 0.0 Sodium 138 Potassium 4.1 Chloride 95 L Carbon Dioxide 33 H Anion Gap 10.0 BUN 51 H Creatinine 1.6 H Estimated GFR (MDRD) 31 L Glucose 270 H Lactic Acid Calcium 8.9 Total Bilirubin 0.6 AST 13 ALT < 10 L Alkaline Phosphatase 85 Troponin I Total Protein 7.6 Albumin 3.8 Globulin 3.8 Albumin/Globulin Ratio 1.0 Lipase 25 Urine Color Urine Clarity Urine pH Ur Specific [place] Urine Protein Urine Glucose (UA) Urine Ketones Urine Occult Blood Urine Nitrite Urine Bilirubin Urine Urobilinogen Ur Leukocyte Esterase Urine RBC Urine WBC Urine WBC Clumps Ur Squamous Epith Cells Urine Bacteria Urine Casts Ur Microscopic Review Urine Culture Comments C. difficile Tox B Gene NEGATIVE 12/20/18 12/20/18 12/20/18 10:37 10:37 11:07 WBC RBC Hgb Hct MCV MCH MCHC RDW Plt Count MPV Neut # (Auto) Lymph # (Auto) [place] # (Auto) Eos # (Auto) Baso # (Auto) Absolute Nucleated RBC Nucleated RBC % Sodium Potassium Chloride Carbon Dioxide Anion Gap BUN Creatinine Estimated GFR (MDRD) Glucose Lactic Acid 0.9 Calcium Total Bilirubin AST ALT Alkaline Phosphatase Troponin I < 0.04 Total Protein Albumin Globulin Albumin/Globulin Ratio Lipase Urine Color YELLOW Urine Clarity CLEAR Urine pH 6.0 Ur Specific [place] 1.015 Urine Protein NEGATIVE Urine Glucose (UA) 250 H Urine Ketones NEGATIVE Urine Occult Blood TRACE-LYSE Urine Nitrite POSITIVE H Urine Bilirubin NEGATIVE Urine Urobilinogen 0.2 (NORMAL) Ur Leukocyte Esterase TRACE H Urine RBC 0-5 Urine WBC >25 H Urine WBC Clumps PRESENT Ur Squamous Epith Cells FEW Squamous Urine Bacteria Rare Urine Casts 3-5 Granular Casts Ur Microscopic Review INDICATED Urine Culture Comments INDICATED C. difficile Tox B Gene PD MEDICAL DECISION MAKING - ED course Complexity details: reviewed old records, reviewed results, re-evaluated angelia ent, considered differential, d/w patient, d/w family, d/w statistical consultant ED course: The patient's presentation is significant for urinary tract infection and dehydration, as well as diarrhea of uncertain etiology. Her urinalysis is positive for pyuria and bacteriuria. White blood cell count is normal at 10.1, with a normal lactate of 0.9. I doubt sepsis or pyelonephritis. Her BUN is elevated at 51 with a creatinine of 1.6. Previous BUN and creatinine, 2 months ago were 32 and 1.7. While in the emergency department she had 3 diarrhea stools, which were very malodorous. C. difficile PCR is negative. Treatment in the emergency department included administration of normal saline 1 L IV, and ceftriaxone 1 g IV. Essential weakness attempt at ambulation was unsuccessful, with continued generalized weakness, with inability to stand at the bedside. There is no focal motor or sensory deficit detected. I discussed her condition with Dr. Landrum, hospitalist, who accepts her for further evaluation and treatment. Departure - Departure Disposition: ED Place in Observation Clinical Impression: Renal insufficiency UTI (urinary tract infection) Qualifiers: Urinary tract infection type: acute cystitis Hematuria presence: without hematuria Qualified Code(s): N30.00 - Acute cystitis without hematuria Anemia Qualifiers: Anemia type: unspecified type Qualified Code(s): D64.9 - Anemia, unspecified Diarrhea Qualifiers: Diarrhea type: unspecified type Qualified Code(s): R19.7 - Diarrhea, unspecified Condition: Stable Discharge Date/Time: 12/20/18 14:16
[2018-12-20 10:51] LABS: BASOPHILS # (AUTO) 0.1 10^3/uL (0.0-0.1); BASOPHILS % (AUTO) 0.9 %; EOSINOPHILS # (AUTO) 0.1 10^3/uL (0.0-0.7); EOSINOPHILS % (AUTO) 0.6 %; HGB - HEMOGLOBIN 9.7 g/dL (12.0-16.0); LYMPHOCYTES # (AUTO) 0.6 10^3/uL (1.5-3.5); LYMPHOCYTES % (AUTO) 5.9 %; MEAN CORPUSCULAR HEMOGLOBIN 26.8 pg (27.0-31.0); MEAN CORPUSCULAR HGB CONC 30.6 g/dL (32.0-36.0); MEAN CORPUSCULAR VOLUME 87.4 fL (81.0-99.0); MEAN PLATELET VOLUME 8.2 fL (7.9-10.8); MONOCYTES # (AUTO) 0.7 10^3/uL (0.0-1.0); MONOCYTES % (AUTO) 6.9 %; NEUTROPHILS # (AUTO) 8.7 10^3/uL (1.5-6.6); NEUTROPHILS % (AUTO) 85.7 %; PLT - PLATELET COUNT 202 10^3/uL (130-450); RED BLOOD COUNT 3.64 10^6/uL (4.20-5.40); RED CELL DISTRIBUTION WIDTH 16.9 % (12.0-15.0); WHITE BLOOD COUNT 10.1 x10^3/uL (4.8-10.8)
[2018-12-20 11:01] LABS: ALBUMIN 3.8 g/dL (3.2-5.5); ALKALINE PHOSPHATASE 85 IU/L (42-121); ALT ALANINE AMINOTRANSFERASE < 10 IU/L (10-60); AST ASPARTATE AMINOTRANSFERASE 13 IU/L (10-42); BILIRUBIN,TOTAL 0.6 mg/dL (0.2-1.0); BUN - BLOOD UREA NITROGEN 51 mg/dL (6-20); CALCIUM 8.9 mg/dL (8.5-10.3); CARBON DIOXIDE - CO2 33 mmol/L (21-32); CHLORIDE 95 mmol/L (101-111); CREATININE 1.6 mg/dL (0.4-1.0); GFR - MDRD 31 (>89); GLUCOSE 270 mg/dL (70-100); LIPASE 25 U/L (22-51); SODIUM 138 mmol/L (135-145); TOTAL PROTEIN 7.6 g/dL (6.7-8.2)
[2018-12-20 11:20] LABS: BILIRUBIN,URINE NEGATIVE (NEGATIVE); GLUCOSE, URINE (UA) 250 mg/dL (NEGATIVE); KETONES,URINE (UA) NEGATIVE (NEGATIVE); LEUKOCYTE ESTERASE, URINE TRACE (NEGATIVE); NITRITE,URINE POSITIVE (NEGATIVE); OCCULT BLOOD,URINE TRACE-LYSE (NEGATIVE); PROTEIN,URINE NEGATIVE (NEGATIVE); UROBILINOGEN,URINE 0.2 (NORMAL) E.U./dL (NORMAL)
[2018-12-20 11:32] LABS: CLARITY,URINE CLEAR (CLEAR)
[2018-12-20 11:44] LABS: BACTERIA,URINE Rare /HPF (None Seen); CASTS, URINE 3-5 Granular Casts /LPF; RBC,URINE 0-5 /HPF (0-5); SQUAMOUS EPITHELIAL CELL,UR FEW Squamous (<= Few); WBC CLUMPS,URINE PRESENT
[2018-12-20] MEDS ORDERED: SODIUM CHLORIDE 0.9% 1,000 ML IV ONE (11:47)
[2018-12-20] MEDS ORDERED: cefTRIAXone 1 GM in SODIUM CHLORIDE 0.9% MINIBAG 100 ML IV STA (11:47)
[2018-12-20] MEDS ORDERED: ONDANSETRON ODT 4 MG TABLET TL PRN (13:33)
[2018-12-20] MEDS ORDERED: ACETAMINOPHEN 325 MG TABLET PO PRN (13:33)
[2018-12-20] MEDS ORDERED: SODIUM CHLORIDE FLUSH 0.9% 10 ML SYRINGE IVP PRN (13:33)
[2018-12-20] MEDS ORDERED: ONDANSETRON 4 MG/2 ML VIAL IVP PRN (13:33)
[2018-12-20] MEDS ORDERED: SODIUM CHLORIDE 0.9% 1,000 ML IV SCH (14:00)
[2018-12-20] MEDS ORDERED: MIN OIL/DIMETHICON/COCONUT OIL 92 GM TUBE TOP PRN (15:16)
[2018-12-20] MEDS: SODIUM CHLORIDE FLUSH 0.9% 10 ML SYRINGE IVP SCH (16:55)
[2018-12-20] MEDS ORDERED: ZINC OXIDE 20% OINT 28.35 GM TUBE TOP PRN (18:05)
[2018-12-20 19:59] LABS: HB2 TOTAL 10.2 g/dL; HEMOGLOBIN A1C 0.58 g/dL; HEMOGLOBIN A1C % 7.4 % (4.6-6.2)
--- NOTE | 2018-12-20 20:54 | CONSULTATION NOTE ---
DATE OF SERVICE: 12/20/2018 Physician: Tracey Landrum MD PRIMARY CARE PROVIDER: Jose Luis Metcalf MD ADMITTING PROVIDER: Tracey Landrum MD CHIEF COMPLAINT: So weak she cannot get out of bed. HISTORY OF PRESENT ILLNESS: This is a morbidly obese female who lives in her own home. She is taken care of by her daughter. Her morbid obesity has progressed to the point that she is minimally ambulatory and prefers to sleep upright in a recliner. She is able to step up from the recliner and make a few steps with a walker, but spends most of her time sitting. Because of her obesity and limited mobility (made worse by right knee osteoarthritis), the patient has an indwelling Blanco catheter. She has chronic recurrent UTIs and chronic colonization. She has EBSL Klebsiella in her urine. She has been admitted November 2017, August 2018, October 2018 with "weak spells." When she gets this weak, she usually has either congestive heart failure or an attributed UTI. Since her discharge from October, she is followed by Home Health and those notes are reviewed. They are trying to improve her endurance and mobility and are trying to prevent worsening of her buttocks decubiti. She had one of her weak spells in November, but it resolved on its own after a few days. Had another one in early November, and again it resolved after a few days. Today, she describes getting weaker and weaker over the last 2-3 days. She denies fever, chills, but does have complaints of sinus pressure, some rhinorrhea, but no coryza, eustachian tube dysfunction, or sore throat. She has alternating constipation and diarrhea. While in the emergency room, she had a sudden burst of several foul smelling liquid stools, but does not recall having it at home. She has had decreasing appetite, but she thinks she has been eating and drinking as normally. She denies chest pain. She has the same chronic steady cough, same leg pain and skin pain in her lower extremities. This morning, she woke up so weak she could not get out of bed at all. As such, she was brought back to the emergency room and evaluated by Dr. Oneill. She is afebrile, normotensive, down to 90% on room air and needing 3 L nasal cannula to bring her to 95%. She continues to be a severely morbidly obese female with diminished mobility. Alert and oriented. White cell count is normal. BUN is above her normal of in the 30s and she is 51. Creatinine is 1.6 and stable. Glucose is stable around 270. Lactic acid is 0.9. White cell count is 10. She continues to have dirty urine, but again is felt to have colonization with a Blanco. Chest x-ray was not done. In the emergency room, she was so weak that she could not even roll herself over from [id number]. The patient is now placed in observation for probable mild dehydration in the face of diarrhea, possible UTI again. PAST MEDICAL HISTORY 1. Morbid obesity with severe limited mobility. 2. Chronic obstructive pulmonary disease. On chronic O2 to 2-3 liters for 90% saturation. 3. Coronary artery disease. 4. Chronic kidney disease, stage 4. 5. Hypertension. 6. Hyperlipidemia. 7. Chronic systolic congestive heart failure with an ejection fraction of 45- 50%. 8. Cor pulmonale. 9. Hypothyroidism. 10. Type 2 diabetes mellitus, with complications, on long-term use of insulin. 11. Severe osteoarthritis, right knee. 12. Pressure ulcers of both right and left buttock in the last month. 13. Major depressive disorder with anxiety. 14. Anemia of chronic disease. 15. History of falls. ALLERGIES: NO KNOWN DRUG ALLERGIES. MEDICATIONS AT HOME 1. Atorvastatin 40 mg a day. 2. Dulcolax 5 mg b.i.d. 3. Lasix 20 b.i.d. 4. Spironolactone 25 daily. 5. [place] 5/325, 1 tablet t.i.d. 6. Novolin insulin NPH 16 units b.i.d. 7. Omeprazole 20 daily. 8. Xarelto 15 daily. 9. Imdur 30 daily. 10. Levothyroxine 150 mcg daily. 11. Metoprolol XL 50 mg daily. 12. Florastor 250 b.i.d. SOCIAL HISTORY: She is from [place]. 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 She is 30 years, but her approximately 2013. She has 4 children, which are 3 girls and 1 boy. The boy at the age of 14. She is a lifelong smoker, but quit approximately 2011 after a terrible case of pneumonia. She has no history of alcohol abuse or recreational substance abuse. She lives with her daughter who takes care of her. Has been living on [facility] for about 3 or 4 years after moving from [place]. She basically moved here after her . One daughter there took care of her until he . So the daughter here decided to have mom come live with her to relieve the burden on her sister in [place]. FAMILY HISTORY: Mom from an unknown type of cancer. Dad of heart disease and he was hypertensive and diabetic. Sister of complications of a bypass surgery, another sister of cancer, a brother of heart disease and 1 sister is alive and well. Four children. Her son at age 14. REVIEW OF SYSTEMS CONSTITUTIONAL: She is always tired, does not sleep well, but denies fevers, sweats, unexpected weight changes. ENT: Has chronic vision loss, chronic deafness, chronic nasal congestion, and denies any changes in those states. She has no facial dysesthesias, dysphagia, sore throat. Runny nose started last couple of days with more sinus congestion than usual. PULMONARY: Chronic shortness of breath with exertion, chronic daily cough that is intermittent and nonproductive. Does not wheeze. Her phlegm has not changed. Coughing has not changed. CARDIOVASCULAR: Again, chronic leg edema, chronic exertional dyspnea, denies any chest pain or palpitations at this time. GASTROINTESTINAL: Intermittent constipation. Today, had diarrhea while in the emergency room. Slight reduction in appetite over the last few days. No nausea. Did have emesis this morning, but no abdominal pain. GENITOURINARY: Chronic indwelling Blanco catheter because of inability to ambulate and is incontinent of urine. Denies flank pain, hematuria. MUSCULOSKELETAL: Terrible right knee pain. Overall body is stiff, difficult for her to move. She takes opiates for this. She does use a walker at home. There has been no change in this. DERMATOLOGIC: No new body rashes or lesions. Develops intermittent pressure sores of the coccyx because she sits so much. PSYCHIATRIC: Depression. Mild anxiety. Not suicidal. DIRECTOR MORTGAGE: Denies memory loss, seizures, syncope. PHYSICAL EXAMINATION GENERAL: She is an alert, oriented, morbidly obese female with muted affect. Conversation is slightly choppy in that she seems tired and nonconversational. VITAL SIGNS: Temperature is 37, pulse is 92, blood pressure 157/76, respirations 20, 95% on 3 L. HEENT: Normocephalic, atraumatic skull. Extraocular movements intact. NECK: Thick, unable to assess JVD, not stiff, no goiter palpable. LUNGS: Diminished breath sounds at the bases, slow, shallow, unlabored respiration at rest, but when I have her transfer gurneys even with the help of nurses, she gets very tachypneic. She prefers to have the bed upright. CARDIAC: Regular rate and rhythm. PMI barely palpable. No murmurs, rubs or gallops. ABDOMEN: Hugely obese from a large pannus. She has Svetlana intertrigo changes in her pannus and intertriginous folds. Buttocks are with barely visible ulcers that she says were stage II and have now been healing. Home Health has been following her. EXTREMITIES: Large, pendulous with edema, venous stasis changes. Blanco in place draining yellow, cloudy urine. She is alert and oriented to person, place and time. Can move all her extremities. In trying to get her from 1 gurney to the next, she is a complete assist. LABORATORY DATA: White cell count is 10.1, hemoglobin chronically low at 9.7, platelets normal at 202. BUN slightly elevated from her usual 30s at 51. Creatinine stable at 1.6. Random glucose 270. Lactic acid 0.9. Liver enzymes normal. Troponin less than 0.04. ASSESSMENT/PLAN 1. Probable dehydration in this elderly woman with diabetes, immobility, diarrhea, emesis. Lab values show an elevated BUN. PLAN a. Observation stay. b. Hydration. c. Attestation that the patient will be admitted and discharged within 96 hours. d. Recheck BMP in the morning. 2. Weakness. Again, she has limited mobility to begin with, and anything that causes illness will destabilize her. Usually, her CHF or UTI will do this. If weakness continues in the morning, will have PT evaluation done. Because of her gradual decreasing mobility over time, she was seen by palliative nurse care manager, FERNANDEZ Collins. While Raphael, the patient, and the daughter all agree that the patient is deteriorating, they are not quite ready to transition to hospice. They are very grateful for the home health support, and will call Ms. Lim back if things look like they are not getting better or worsening. 3. Urinary tract infection. History of EBSL Klebsiella. I have ordered meropenem. Could be colonization, but because of her weakness, could be urinary tract infection. Again, she always seems to have episodes of weakness, the last 2 in November and November were not resulting in hospitalization. We will see how she does tomorrow morning. I do not know if I will send her home on antibiotics if she responds quickly. 4. Diarrhea. Send stool for Clostridium difficile. Keep Florastor. 5. Chronic systolic congestive heart failure. Given 1 L of fluid in the ER. Started on 150 mL by me because of dehydration. I will reduce to 100 mL and stop after 2-3 L. At this time, she does not have acute systolic failure. 6. Hypertension, mildly hypertensive. Resume usual medicines. 7. Chronic obstructive pulmonary disease without exacerbation. Nebulizers p.r.n. 8. Type 2 diabetes mellitus, on long-term insulin, uncontrolled, with complications. Change to Lantus while here. Sliding scale insulin. Monitor glucose with meals. 9. Depression with anxiety, appears stable. 10. Deep venous thrombosis prophylaxis will be compression stockings if possible. 11. DO NOT RESUSCITATE STATUS. TD: 12/20/2018 20:17 SOPHIA
[2018-12-20] MEDS: MEROPENEM 1 GM in SODIUM CHLORIDE 0.9% MINIBAG 100 ML IV SCH (21:10)
[2018-12-20] MEDS: SODIUM CHLORIDE 0.9% 1,000 ML IV SCH (21:10)
[2018-12-20] MEDS ORDERED: SODIUM CHLORIDE 0.9% MINIBAG 100 ML IV ONE (21:10)
[2018-12-20] MEDS: HYDROcod/ACETAM 5/325 MG TABLET PO PRN (21:11)
[2018-12-20] MEDS: INSULIN ASPART 300 UNIT/3 ML PEN SUBQ SCH (21:11)
[2018-12-20] MEDS: SACCHAROMYCES BOULARDII 250 MG CAPSULE PO SCH (21:11)
[2018-12-21] MEDS: SODIUM CHLORIDE FLUSH 0.9% 10 ML SYRINGE IVP SCH ×3 (00:16→16:56)
[2018-12-21] MEDS: oxyCODONE 5 MG TABLET PO PRN (04:31)
[2018-12-21] MEDS: MEROPENEM 1 GM in SODIUM CHLORIDE 0.9% MINIBAG 100 ML IV SCH ×3 (05:16→20:00)
[2018-12-21] MEDS: LEVOTHYROXINE 75 MCG TABLET PO SCH (06:47)
[2018-12-21 07:56] LABS: BASOPHILS # (AUTO) 0.1 10^3/uL (0.0-0.1); BASOPHILS % (AUTO) 1.5 %; EOSINOPHILS # (AUTO) 0.1 10^3/uL (0.0-0.7); EOSINOPHILS % (AUTO) 0.9 %; HGB - HEMOGLOBIN 8.6 g/dL (12.0-16.0); LYMPHOCYTES % (AUTO) 12.7 %; MEAN CORPUSCULAR HEMOGLOBIN 26.6 pg (27.0-31.0); MEAN CORPUSCULAR HGB CONC 31.1 g/dL (32.0-36.0); MEAN CORPUSCULAR VOLUME 85.6 fL (81.0-99.0); MEAN PLATELET VOLUME 8.6 fL (7.9-10.8); NEUTROPHILS % (AUTO) 72.9 %; PLT - PLATELET COUNT 187 10^3/uL (130-450); RED BLOOD COUNT 3.25 10^6/uL (4.20-5.40); RED CELL DISTRIBUTION WIDTH 16.7 % (12.0-15.0); WHITE BLOOD COUNT 8.2 x10^3/uL (4.8-10.8)
[2018-12-21 08:01] LABS: CREATININE 1.2 mg/dL (0.4-1.0)
[2018-12-21] MEDS: INSULIN 70/30 HUMAN 100 UNIT/1 ML 10 ML MDV SUBQ SCH ×3 (08:06→22:20)
[2018-12-21] MEDS: POLYETHYLENE GLYCOL 3350 17 GM PACKET PO SCH (08:10)
[2018-12-21] MEDS: INSULIN ASPART 300 UNIT/3 ML PEN SUBQ SCH ×4 (08:22→22:20)
[2018-12-21] MEDS: SACCHAROMYCES BOULARDII 250 MG CAPSULE PO SCH ×2 (08:25→22:19)
[2018-12-21] MEDS: ISOSORBIDE MONONITRATE ER 30 MG TABLET PO SCH (08:25)
[2018-12-21] MEDS: METOPROLOL SUCCINATE 50 MG TABLET PO SCH (08:26)
[2018-12-21] MEDS: RIVAROXABAN 15 MG TABLET PO SCH (08:26)
[2018-12-21] MEDS: ATORVASTATIN 40 MG TABLET PO SCH (08:26)
--- NOTE | 2018-12-21 09:13 | XRAY Report ---
Reason: hypoxia and weakness Procedure Date: 12/21/2018 Accession Number: [id number] / [id number] Procedure: XR - Chest 1 View X-Ray CPT Code: 23411 FULL RESULT: EXAM: CHEST RADIOGRAPHY EXAM DATE: 12/21/2018 07:57 AM. CLINICAL HISTORY: Hypoxia and weakness. COMPARISON: CHEST 1 VIEW 08/31/2018 6:24 PM. TECHNIQUE: 1 view. FINDINGS: Lungs/Pleura: No focal opacities evident. No pleural effusion. No pneumothorax. Mediastinum: Within exam limitations, the cardiomediastinal contour is normal. Other: None. IMPRESSION: No focal consolidation. RADIA
[2018-12-21 10:36] LABS: ABSOLUTE RETICS # AUTO 0.13 10^6/uL (0.020-0.110); MEAN RETIC VALUE 110.7; RED BLOOD COUNT 3.24 10^6/uL (4.20-5.40)
[2018-12-21 11:03] LABS: FERRITIN 13.3 ng/mL (11.0-306.8)
[2018-12-21] MEDS: SODIUM CHLORIDE 0.9% 1,000 ML IV SCH ×2 (11:04→22:46)
[2018-12-21 11:21] LABS: % IRON SATURATION 6 % (20-50); IRON 22 ug/dL (28-170); TOTAL IRON BINDING CAPACITY 349 ug/dL (250-450); TRANSFERRIN 249 mg/dL (192-382)
[2018-12-21] MEDS ORDERED: IRON SUCROSE 200 MG in SODIUM CHLORIDE 0.9% 100ML 100 ML IV ONE (12:00)
--- NOTE | 2018-12-21 13:55 | PROVIDER PROGRESS NOTE ---
Subjective - Prog Note Date Prog Note Date: 12/21/18 Prog Note Time: 13:53 - Subjective Subjective: She is sitting up in bed, eating her breakfast. But when she tries to position herself in the bed, move, she gets wheezy and short of breath. She appears a little chest congestion and has a mild cough and coughs once to produce some phlegm that she uses a napkin to spit into. From her cardiopulmonary perspective she feels that she is at baseline but has not try to get out of bed yet. She says that she gets easily short of breath with walking in her apartment but that it stable for her and she can walk 10 feet with her walker. Current Medications - Current Medications Current Medications: Active Medications Acetaminophen (Tylenol) 650 mg PO Q4HR PRN PRN Reason: Pain 1 to 4 Last Admin: 12/20/18 16:03 Dose: 650 mg Hydrocodone Bitart/Acetaminophen ([place] 5/325) 1 tab PO TID PRN PRN Reason: PAIN Last Admin: 12/20/18 21:11 Dose: 1 tab Atorvastatin Calcium (Lipitor) 40 mg PO DAILY [facility] Last Admin: 12/21/18 08:26 Dose: 40 mg Meropenem 1 gm/ Sodium (Chloride) 100 mls @ 200 mls/hr IV Q8H [facility] Last Infusion: 12/21/18 13:12 Dose: Infused Sodium Chloride (Normal Saline 0.9%) 1,000 mls @ 100 mls/hr IV .Q10H [facility] Stop: 12/22/18 01:33 Last Admin: 12/21/18 11:04 Dose: 100 mls/hr Insulin Aspart (Novolog) 1 - 9 unit SUBQ 0800,1200,1700,2100 [facility]; Protocol Last Admin: 12/21/18 11:44 Dose: 3 unit Insulin Human Isoph/Insulin Regular (Novolin) 16 unit SUBQ 0730 [facility] Last Admin: 12/21/18 08:22 Dose: 16 unit Insulin Human Isoph/Insulin Regular (Novolin) 16 unit SUBQ QPM [facility] Last Admin: 12/21/18 08:06 Dose: Not Given Isosorbide Mononitrate (Imdur) 30 mg PO DAILY [facility] Last Admin: 12/21/18 08:25 Dose: 30 mg Levothyroxine Sodium (Synthroid) 150 mcg PO QDAC [facility] Last Admin: 12/21/18 06:47 Dose: 150 mcg Metoprolol Succinate (Toprol Xl) 50 mg PO DAILY [facility] Last Admin: 12/21/18 08:26 Dose: 50 mg Mineral Oil (Cavilon) 1 applic TOP PRN PRN PRN Reason: Skin Care Multi-Ingredient Ointment (Zinc Oxide) 1 applic TOP PRN PRN PRN Reason: Skin Care Last Admin: 12/20/18 18:28 Dose: 1 applic Ondansetron HCl (Zofran Inj) 4 mg IVP Q6HR PRN PRN Reason: Nausea / Vomiting Ondansetron HCl (Zofran Odt) 4 mg TL Q6HR PRN PRN Reason: Nausea / Vomiting Oxycodone HCl (Roxicodone) 5 mg PO Q4HR PRN PRN Reason: Pain 5 to 7 Last Admin: 12/21/18 04:31 Dose: 5 mg Polyethylene Glycol (Miralax) 17 gm PO DAILY [facility] Last Admin: 12/21/18 08:10 Dose: Not Given Rivaroxaban (Xarelto) 15 mg PO DAILY [facility] Last Admin: 12/21/18 08:26 Dose: 15 mg Saccharomyces Boulardii (Florastor) 250 mg PO BID [facility] Last Admin: 12/21/18 08:25 Dose: 250 mg Sodium Chloride (Normal Saline Flush 0.9%) 10 ml IVP PRN PRN PRN Reason: NEEDED PER PROVIDER ORDERS Sodium Chloride (Normal Saline Flush 0.9%) 10 ml IVP 0100,0900,1700 [facility] Last Admin: 12/21/18 08:27 Dose: 10 ml Atorvastatin Calcium 40 mg PO DAILY 11/13/17 HYDROcod/ACETAM 5/325 [[place] 5/325] 1 tab PO TID PRN 11/13/17 Insulin NPH Hum/Reg Insulin Hm [Novolin 70-30 100 Unit/ml Vial] 16 units SUBQ 0730 11/13/17 Omeprazole 20 mg PO DAILY 08/31/18 Furosemide 20 mg PO BID 10/03/18 Bisacodyl [Dulcolax] 5 mg PO BID PRN 11/05/18 Rivaroxaban [Xarelto] 15 mg PO DAILY 11/05/18 Objective - Vital Signs/Intake & Output Reviewed Vital Signs: Yes Vital Signs: Vital Signs x48h Temp Pulse Resp BP Pulse Ox 12/21/18 12:24 36.7 C 78 18 131/52 H 96 12/21/18 07:53 37.4 C 88 20 137/61 H 93 Intake & Output: Intake & Output 12/18/18 12/19/18 12/20/18 12/21/18 23:59 23:59 23:59 23:59 Intake Total 1915 2355.000 Output Total 1200 1125 Balance 715 1230.000 - Objective General Appearance: positive: No acute distress, Alert, Other Eyes Bilateral: positive: PERRL ENT: positive: Pharynx nml Neck: positive: No JVD. negative: Stiff neck, Carotid bruit Respiratory: positive: Chest non-tender, Wheezes. negative: Rales, Rhonchi Cardiovascular: positive: Regular rate & rhythm, Tachycardia (With exertion). negative: Gallop/S4, Friction rub Abdomen: positive: Non-tender, No organomegaly, Nml bowel sounds, No distention, Other (Large, obese abdominal pannus) Skin: positive: Warm, Dry Extremities: positive: Pedal edema Neurologic/Psychiatric: positive: Oriented x3 (Speech pattern is normal, is feeding herself breakfast), CN's nml (2-12). negative: Motor nml (Generalized weakness, no tremors, no focal deficits just very difficult for her to mobilize to a sitting position to than a standing position. She needs to max assist) - Lab Results Fish Bones: 12/21/18 07:25 12/21/18 07:25 Other Labs: Lab Results x24hrs 12/21/18 12/21/18 12/21/18 Range/Units 07:25 07:25 07:22 WBC 8.2 (4.8-10.8) x10^3/uL RBC 3.25 L (4.20-5.40) 10^6/uL Hgb 8.6 L (12.0-16.0) g/dL Hct 27.8 L (37.0-47.0) % MCV 85.6 (81.0-99.0) fL MCH 26.6 L (27.0-31.0) pg MCHC 31.1 L (32.0-36.0) g/dL RDW 16.7 H (12.0-15.0) % Plt Count 187 (130-450) 10^3/uL MPV 8.6 (7.9-10.8) fL Reticulocyte % (Auto) (0.5-2.3) % Neut # (Auto) 6.0 (1.5-6.6) 10^3/uL Lymph # (Auto) 1.0 L (1.5-3.5) 10^3/uL [place] # (Auto) 1.0 (0.0-1.0) 10^3/uL Eos # (Auto) 0.1 (0.0-0.7) 10^3/uL Baso # (Auto) 0.1 (0.0-0.1) 10^3/uL Absolute Nucleated RBC 0.02 x10^3/uL Nucleated RBC % 0.3 /100WBC Absolute Retic (0.020-0.110) 10^6/uL Sodium 138 (135-145) mmol/L Potassium 4.6 (3.5-5.0) mmol/L Chloride 100 L (101-111) mmol/L Carbon Dioxide 31 (21-32) mmol/L Anion Gap 7.0 (6-13) BUN 37 H (6-20) mg/dL Creatinine 1.2 H (0.4-1.0) mg/dL Estimated GFR (MDRD) 44 L (>89) Glucose 178 H (70-100) mg/dL Glycated Hemoglobin (4.6-6.2) % Estim Average Glucose (70-100) Calcium 8.0 L (8.5-10.3) mg/dL Iron (28-170) ug/dL TIBC (250-450) ug/dL % Saturation (20-50) % Transferrin (192-382) mg/dL Ferritin (11.0-306.8) ng/mL Lactate Dehydrogenase 116 (91-225) IU/L Vitamin B12 (180-914) pg/mL C. difficile Tox B Gene (NEGATIVE) 12/21/18 12/21/18 12/21/18 Range/Units 07:22 07:22 07:22 WBC (4.8-10.8) x10^3/uL RBC 3.24 L (4.20-5.40) 10^6/uL Hgb (12.0-16.0) g/dL Hct (37.0-47.0) % MCV (81.0-99.0) fL MCH (27.0-31.0) pg MCHC (32.0-36.0) g/dL RDW (12.0-15.0) % Plt Count (130-450) 10^3/uL MPV (7.9-10.8) fL Reticulocyte % (Auto) 4.02 H (0.5-2.3) % Neut # (Auto) (1.5-6.6) 10^3/uL Lymph # (Auto) (1.5-3.5) 10^3/uL [place] # (Auto) (0.0-1.0) 10^3/uL Eos # (Auto) (0.0-0.7) 10^3/uL Baso # (Auto) (0.0-0.1) 10^3/uL Absolute Nucleated RBC x10^3/uL Nucleated RBC % /100WBC Absolute Retic 0.130 H (0.020-0.110) 10^6/uL Sodium (135-145) mmol/L Potassium (3.5-5.0) mmol/L Chloride (101-111) mmol/L Carbon Dioxide (21-32) mmol/L Anion Gap (6-13) BUN (6-20) mg/dL Creatinine (0.4-1.0) mg/dL Estimated GFR (MDRD) (>89) Glucose (70-100) mg/dL Glycated Hemoglobin (4.6-6.2) % Estim Average Glucose (70-100) Calcium (8.5-10.3) mg/dL Iron 22 L (28-170) ug/dL TIBC 349 (250-450) ug/dL % Saturation 6 L (20-50) % Transferrin 249 (192-382) mg/dL Ferritin 13.3 (11.0-306.8) ng/mL Lactate Dehydrogenase (91-225) IU/L Vitamin B12 192 (180-914) pg/mL C. difficile Tox B Gene (NEGATIVE) 12/20/18 12/20/18 Range/Units 10:21 10:07 WBC (4.8-10.8) x10^3/uL RBC (4.20-5.40) 10^6/uL Hgb (12.0-16.0) g/dL Hct (37.0-47.0) % MCV (81.0-99.0) fL MCH (27.0-31.0) pg MCHC (32.0-36.0) g/dL RDW (12.0-15.0) % Plt Count (130-450) 10^3/uL MPV (7.9-10.8) fL Reticulocyte % (Auto) (0.5-2.3) % Neut # (Auto) (1.5-6.6) 10^3/uL Lymph # (Auto) (1.5-3.5) 10^3/uL [place] # (Auto) (0.0-1.0) 10^3/uL Eos # (Auto) (0.0-0.7) 10^3/uL Baso # (Auto) (0.0-0.1) 10^3/uL Absolute Nucleated RBC x10^3/uL Nucleated RBC % /100WBC Absolute Retic (0.020-0.110) 10^6/uL Sodium (135-145) mmol/L Potassium (3.5-5.0) mmol/L Chloride (101-111) mmol/L Carbon Dioxide (21-32) mmol/L Anion Gap (6-13) BUN (6-20) mg/dL Creatinine (0.4-1.0) mg/dL Estimated GFR (MDRD) (>89) Glucose (70-100) mg/dL Glycated Hemoglobin 7.4 H (4.6-6.2) % Estim Average Glucose 166 H (70-100) Calcium (8.5-10.3) mg/dL Iron (28-170) ug/dL TIBC (250-450) ug/dL % Saturation (20-50) % Transferrin (192-382) mg/dL Ferritin (11.0-306.8) ng/mL Lactate Dehydrogenase (91-225) IU/L Vitamin B12 (180-914) pg/mL C. difficile Tox B Gene NEGATIVE (NEGATIVE) ABX Reporting Has patient been on IV antibiotics over the past 48 hours?: Yes Assessment/Plan - Problem List (1) Dehydration Impression: Resolved She presented as weakness, fatigue, history of congestive heart failure and history of UTIs. On top of that she had copious diarrhea in the emergency room. She is on diuretics for congestive heart failure that is chronic. And creatinine was elevated. She is now received IV fluids, antibiotics, and her creatinine is now normal. (2) Generalized weakness Impression: This is an elderly female with morbid obesity and severe right knee arthritis that has been deconditioned to the point that is very difficult for her to get around her apartment. Been living with her daughter. Gets episodes of weakness for her congestive heart failure kicks in or she gets another urinary tract infection. UTI is being treated, dehydration has resolved. Seen by physical therapy this morning and very weak. Physical therapy does not recommend discharge today because she is not at her baseline and needs a 2 person max assist to try and mobilize out of bed. It would not be a safe discharge. PT note: Pt is a 73 y/o female increasing weakness and debility. Pt PLF was ind with 4WW short distances at home. Pt assessed pt to day with moderate + x 2 sit to stand from raised bed (pt may have a lift chair at home) Pt each time plopped down hard with falling onto bed and into chair- Pt reports her current status is far more limited than her usual care- recommended to ns to have second person to aid in safety. Pt walked 5 with fair balance once up but initial stance pt was quite dizzy and needed to sit down.- PT to progress walking tolerance see if Dtr (primary respiratory care faculty) can bring in her 4WW- Plan is to return home with PT,OT, and respiratory care faculty assessment. I will transfer the patient to inpatient status. Palliative care is already seeing the patient. The family was not quite ready to transition to hospice. But the patient shares with me that if she were ever to end up in a bed perma nently, with no hope for getting of to be ambulatory at all, she does want to be in hospice. Daughter is asking, when I updated her this morning on the phone, we could order a hospital bed. Order placed in computer and discussed with Char in Case Management. PT also suggests FWW. (3) UTI (urinary tract infection) Impression: Present on admission. The patient has a chronic indwelling Blanco catheter. She has a history of a BSL Klebsiella, and I am treating that with meropenem. Day #2 meropenem. Qualifiers: Urinary tract infection type: catheter-associated UTI Qualified Code(s): N30.00 - Acute cystitis without hematuria (4) Diarrhea Impression: Present in the emergency room. Copious amount. Contributing to her weakness and made her very very shaky. She says that her shakiness is resolved, no further diarrhea since being in the emergency room. She was C. difficile negative. Qualifiers: Diarrhea type: unspecified type Qualified Code(s): R19.7 - Diarrhea, unspecified (5) Chronic systolic congestive heart failure, NYHA class 3 Impression: Although her ejection fraction is not severely limited at 45%, this elderly woman is so severely deconditioned and the decreased mobility from obesity, joint pain, she is a class III. She is received a little over 2 L of IV hydration since yesterday. I will IV lock to avoid putting her in acute conges tive heart failure. Medications at home are Lasix, Toprol, Aldactone but no ERIC inhibitor. Blood pressure is in the 130s-140s systolic. Plan: Add low-dose lisinopril monitor her creatinine check BNP in am. (6) HTN (hypertension) Impression: 130s-140 systolic on her usual home meds except I am holding off on her diuretics right now. I will add low-dose lisinopril. See how her creatinine does and then resume, probably, her spironolactone before I resume her Lasix Qualifiers: Hypertension type: essential hypertension Qualified Code(s): I10 - Essential (primary) hypertension (7) COPD (chronic obstructive pulmonary disease) Impression: No acute exacerbation. I think her dyspnea is due to from deconditioning and heart. Will make sure she gets her nebulizers. Qualifiers: COPD type: unspecified COPD Qualified Code(s): J44.9 - Chronic obstructive pulmonary disease, unspecified (8) Type 2 diabetes mellitus with hyperglycemia, with long-term current use of insulin Impression: A1c is 7.4%. At home she is on NPH with regular insulin mix 7030. We have resume that here at 16 units twice daily. Glucose is 172, 175, and 200 in the last 18 hours. I would consider this controlled for an elderly female who is ill, and we will not change her insulin regimen. (9) Anemia Impression: Anemia she has iron deficiency anemia as well as anemia of chronic disease.The reticulocyte count indicates there may be some element of hemolysis but her LDH and bilirubin are normal. Laboratory Tests 12/21/18 12/21/18 12/21/18 07:22 07:22 07:22 RBC 3.24 L Reticulocyte % (Auto) 4.02 H Absolute Retic 0.130 H Iron 22 L TIBC 349 % Saturation 6 L Transferrin 249 Ferritin 13.3 Lactate Dehydrogenase Vitamin B12 192 12/21/18 07:22 RBC Reticulocyte % (Auto) Absolute Retic Iron TIBC % Saturation Transferrin Ferritin Lactate Dehydrogenase 116 Vitamin B12 To complete workup, I will do fecal occult studies. We will also give a venofor for injection since she tells me she does not tolerate oral iron because it gives her such severe nausea. Qualifiers: Anemia type: due to chronic kidney disease Chronic kidney disease stage: stage 3 (moderate) Qualified Code(s): N18.3 - Chronic kidney disease, stage 3 (moderate); D63.1 - Anemia in chronic kidney disease
[2018-12-21] MEDS: HYDROcod/ACETAM 5/325 MG TABLET PO PRN (22:19)
[2018-12-22] MEDS: MEROPENEM 1 GM in SODIUM CHLORIDE 0.9% MINIBAG 100 ML IV SCH ×3 (04:55→20:46)
[2018-12-22] MEDS: SODIUM CHLORIDE FLUSH 0.9% 10 ML SYRINGE IVP SCH ×3 (05:02→17:06)
[2018-12-22] MEDS: LEVOTHYROXINE 75 MCG TABLET PO SCH (07:02)
[2018-12-22] MEDS ORDERED: ALBUTEROL NEB 2.5 MG/3 ML INH PRN (08:48)
[2018-12-22] MEDS: LISINOPRIL 5 MG TABLET PO SCH (08:58)
[2018-12-22] MEDS: SACCHAROMYCES BOULARDII 250 MG CAPSULE PO SCH ×2 (08:58→20:56)
[2018-12-22] MEDS: RIVAROXABAN 15 MG TABLET PO SCH (09:05)
[2018-12-22] MEDS: ATORVASTATIN 40 MG TABLET PO SCH (09:05)
[2018-12-22] MEDS: ISOSORBIDE MONONITRATE ER 30 MG TABLET PO SCH (09:06)
[2018-12-22] MEDS: METOPROLOL SUCCINATE 50 MG TABLET PO SCH (09:06)
[2018-12-22] MEDS: INSULIN 70/30 HUMAN 100 UNIT/1 ML 10 ML MDV SUBQ SCH ×2 (09:07→20:56)
[2018-12-22] MEDS: POLYETHYLENE GLYCOL 3350 17 GM PACKET PO SCH (09:09)
[2018-12-22] MEDS: INSULIN ASPART 300 UNIT/3 ML PEN SUBQ SCH ×4 (09:09→21:00)
--- NOTE | 2018-12-22 14:57 | PROVIDER PROGRESS NOTE ---
Subjective - Prog Note Date Prog Note Date: 12/22/18 Prog Note Time: 15:09 - Subjective Pt reports feeling: Improved Subjective: Overnight her sugars have been controlled. Blood pressures been controlled. I had added lisinopril yesterday. BUN and creatinine are improving slowly. She seems to be stronger today. She feels like she is at baseline. Objective - Vital Signs/Intake & Output Reviewed Vital Signs: Yes Vital Signs: Vital Signs x48h Temp Pulse Pulse Resp BP Pulse Ox Pulse Ox 12/22/18 11:55 36.9 C 78 18 140/59 H 93 12/22/18 10:45 93 12/22/18 08:43 37.1 C 80 22 96 12/22/18 08:24 37.1 C 80 18 155/67 H 93 Intake & Output: Intake & Output 12/19/18 12/20/18 12/21/18 12/22/18 23:59 23:59 23:59 23:59 Intake Total 1915 4015.000 2260 Output Total 1200 2875 1750 Balance 715 1140.000 510 - Objective General Appearance: positive: No acute distress, Alert, Other (Pale, morbidly obese elderly female, eating breakfast but says it just does not taste very good. Able to feed herself. Sitting upright in bed.) ENT: positive: Pharynx nml Neck: positive: No JVD. negative: Stiff neck, Carotid bruit Respiratory: positive: Chest non-tender, Other (Really diminished breath sounds at the bases, But no labored respiration). negative: Wheezes, Rales, Rhonchi Cardiovascular: positive: Regular rate & rhythm ( eating breakfast and speaking to me.), Systolic murmur. negative: Gallop/S4, Friction rub Abdomen: positive: Non-tender, No organomegaly, Nml bowel sounds, No distention, Other (Large obese pannus) Skin: positive: Warm, Dry Extremities: positive: Full ROM, Pedal edema Neurologic/Psychiatric: positive: Oriented x3, CN's nml (2-12), Weakness - Lab Results Fish Bones: 12/21/18 07:25 12/21/18 07:25 ABX Reporting Has patient been on IV antibiotics over the past 48 hours?: Yes Assessment/Plan - Problem List (1) Generalized weakness Impression: This is an elderly female with morbid obesity and severe right knee arthritis that has been deconditioned to the point that is very difficult for her to get around her apartment. Been living with her daughter. Gets episodes of weakness for her congestive heart failure kicks in or she gets another urinary tract infection. UTI is being treated, dehydration has resolved. Seen by physical therapy on the morning of 12/21 and very weak. Physical therapy does not recommend discharge that day because she is not at her baseline and needs a 2 person max assist to try and mobilize out of bed. It would not be a safe discharge. PT note on 12/21: Pt is a 73 y/o female increasing weakness and debility. Pt PLF was ind with 4WW short distances at home. Pt assessed pt to day with moderate + x 2 sit to stand from raised bed (pt may have a lift chair at home) Pt each time plopped down hard with falling onto bed and into chair- Pt reports her current status is far more limited than her usual care- recommended to nsg to have second person to aid in safety. Pt walked 5 with fair balance once up but initial stance pt was quite dizzy and needed to sit down.- PT to progress walking tolerance see if Dtr (primary pet care worker) can bring in her 4WW- Plan is to return home with PT,OT, and pet care worker assessment. I transferred the patient to inpatient status. Palliative care is already seeing the patient. The family was not quite ready to transition to hospice. But the patient shares with me that if she were ever to end up in a bed permanently, with no hope for getting of to be ambulatory at all, she does want to be in hospice. Daughter is asking, when I updated her yesterday morning on the phone, we could order a hospital bed. Order placed in computer and discussed with Char in Case Management. PT also suggests FWW. PT note today: Patient is 73 y/o female admitted with generalized weakness and decline functioning. SHx: lives with daughter who is maincaregiver. PLOF: ambulate with 4WW short distances (20-30ft) inside the home with SBA. Transfer in/out of bed with SBA (daughter always there when up per patient). Has a commode at home. Was receiving HHPT prior to hospital admit. [place] [facility] [place]. On assessment, patient appears to have improved upon her functioning compared to yesterday. BM was Yuly/1 with extensive effort. STS with modA/1 and transfer with Yuly/1 with FWW form bed to chair. Was able to ambulate 4 ft with FWW with Yuly/1 and VC for safety. Patient will receive PT for progression of functioning and gait with FWW for short distances (30ft). Recommend dc to home with HHPT to allow patient to reach her goals. Fransisca agrees with PT plan. As such plan for discharge tomorrow morning with continued home health with continued PT (2) UTI (urinary tract infection) Impression: Present on admission. The patient has a chronic indwelling Blanco catheter. She has a history of a BSL Klebsiella, and I am treating that with meropenem. Day #3 meropenem. The call of urinary tract infection is a soft call in this woman. She has chronic colonization. Granted she did improve with antibiotics and IV fluids from admission to today. After tomorrow I do not plan on continuing meropenem. Qualifiers: Urinary tract infection type: catheter-associated UTI Qualified Code(s): N30.00 - Acute cystitis without hematuria (3) Diarrhea Impression: Present in the emergency room. Copious amount. Contributing to her weakness and made her very very shaky. She says that her shakiness is resolved, no further diarrhea since being in the emergency room. She was C. difficile negative. Qualifiers: Diarrhea type: unspecified type Qualified Code(s): R19.7 - Diarrhea, unspecified (4) Chronic systolic congestive heart failure, NYHA class 3 Impression: Although her ejection fraction is not severely limited at 45%, this elderly woman is so severely deconditioned and the decreased mobility from obesity, joint pain, she is a class III. She is received a little over 2 L of IV hydration from admission to next day so I IV locked to avoid putting her in ac [place] congestive heart failure on 12/21 and she is taking in enough liquids po. Medications at home are Lasix, Toprol, Aldactone but no ERIC inhibitor. Blood pressure is in the 130s-140s systolic. Plan: Added low-dose lisinopril 12/21 monitor her creatinine Laboratory Tests 12/20/18 12/21/18 10:37 07:25 Creatinine 1.6 H 1.2 H resume spironolactone. (5) HTN (hypertension) Impression: 130s-140 systolic on her usual home meds except I am holding off on her diuretics right now. I added low-dose lisinopril. Resume spironolactone. Qualifiers: Hypertension type: essential hypertension Qualified Code(s): I10 - Essential (primary) hypertension (6) COPD (chronic obstructive pulmonary disease) Impression: No acute exacerbation. I think her dyspnea is due to from deconditioning and heart. Will make sure she gets her nebulizers. Qualifiers: COPD type: unspecified COPD Qualified Code(s): J44.9 - Chronic obstructive pulmonary disease, unspecified (7) Type 2 diabetes mellitus with hyperglycemia, with long-term current use of insulin Impression: A1c is 7.4%. At home she is on NPH with regular insulin mix 7030. We have resume that here at 16 units twice daily. Glucose is 172, 175, 200, 214, 123, 165 in the last 36 hours. I would consider this controlled for an elderly female who is ill, and we will not change her insulin regimen. (8) Anemia Impression: Anemia she has iron deficiency anemia as well as anemia of chronic disease.The reticulocyte count indicates there may be some element of hemolysis but her LDH and bilirubin are normal. Laboratory Tests 12/21/18 12/21/18 12/21/18 07:22 07:22 07:22 RBC 3.24 L Reticulocyte % (Auto) 4.02 H Absolute Retic 0.130 H Iron 22 L TIBC 349 % Saturation 6 L Transferrin 249 Ferritin 13.3 Lactate Dehydrogenase Vitamin B12 192 12/21/18 07:22 RBC Reticulocyte % (Auto) Absolute Retic Iron TIBC % Saturation Transferrin Ferritin Lactate Dehydrogenase 116 Vitamin B12 To complete workup, I will do fecal occult studies. given a venofor injection 12/21 since she tells me she does not tolerate oral iron because it gives her such severe nausea. Qualifiers: Anemia type: due to chronic kidney disease Chronic kidney disease stage: stage 3 (moderate) Qualified Code(s): N18.3 - Chronic kidney disease, stage 3 (moderate); D63.1 - Anemia in chronic kidney disease (2) UTI (urinary tract infection) Qualifiers: Qualified Code(s): N30.00 - Acute cystitis without hematuria (3) Diarrhea Qualifiers: Qualified Code(s): R19.7 - Diarrhea, unspecified
[2018-12-22] MEDS: HYDROcod/ACETAM 5/325 MG TABLET PO PRN (15:46)
[2018-12-22] MEDS: oxyCODONE 5 MG TABLET PO PRN (20:56)
[2018-12-23] MEDS: SODIUM CHLORIDE FLUSH 0.9% 10 ML SYRINGE IVP SCH ×2 (04:27→08:50)
[2018-12-23] MEDS: MEROPENEM 1 GM in SODIUM CHLORIDE 0.9% MINIBAG 100 ML IV SCH (04:27)
[2018-12-23] MEDS: LEVOTHYROXINE 75 MCG TABLET PO SCH (05:33)
[2018-12-23 08:06] VITALS: BP 135/63
--- NOTE | 2018-12-23 08:34 | Discharge Plan ---
Discharge Plan Disposition: Home Health Service Condition: Stable Prescriptions: Lisinopril [Zestril] 2.5 mg PO DAILY #30 tablet Diet: Low Sodium Activity Restrictions: Activity as Tolerated Shower Restrictions: No Driving Restrictions: Yes (no driving) Assistance Devices: Wheelchair, Walker, Other (hospital bed at home) Weight Bearing: Full Weight Instruction Topics: Lisinopril tablets, Heart Failure Dc, Catheter Indwelling Urinary Dc Additional Instructions or Follow Up instructions: You were admitted to the hospital because of a spell of weakness. When you get weak like this you either have a urinary tract infection or have problems with your heart and congestive heart failure. This time we think you were with diarrhea, a little dehydrated, and brewing a early urinary tract infection. You did well with IV antibiotics for 3 days. You do not need to complete any more treatment for that. Physical therapy work with you because your weakness did not let you get out of bed and now you are back to your baseline. The only new medicine and starting you on is a very tiny dose of a medicine called lisinopril. It is a drug use and congestive heart failure. When you have congestive heart failure, chronically like you do, you take a water pill, beta-israel like metoprolol, and an ERIC inhibitor like lisinopril. The only thing I am doing is covering all bases by adding the lisinopril. Make sure that you see Dr. Metcalf in follow-up in the next 1-2 weeks. I am also resuming your home health and physical therapy. I think they will help you get stronger so I am continuing it. No Smoking: If you smoke, Please STOP! Call for help. Follow-up with: Jose Luis Metcalf MD [Primary Care Provider] -
[2018-12-23] MEDS: INSULIN 70/30 HUMAN 100 UNIT/1 ML 10 ML MDV SUBQ SCH (08:47)
[2018-12-23] MEDS: INSULIN ASPART 300 UNIT/3 ML PEN SUBQ SCH (08:48)
[2018-12-23] MEDS: RIVAROXABAN 15 MG TABLET PO SCH (08:49)
[2018-12-23] MEDS: ATORVASTATIN 40 MG TABLET PO SCH (08:49)
[2018-12-23] MEDS: SACCHAROMYCES BOULARDII 250 MG CAPSULE PO SCH (08:49)
[2018-12-23] MEDS: LISINOPRIL 5 MG TABLET PO SCH (08:49)
[2018-12-23] MEDS: POLYETHYLENE GLYCOL 3350 17 GM PACKET PO SCH (08:49)
[2018-12-23] MEDS: METOPROLOL SUCCINATE 50 MG TABLET PO SCH (08:49)
[2018-12-23] MEDS: ISOSORBIDE MONONITRATE ER 30 MG TABLET PO SCH (08:49)
--- NOTE | 2018-12-23 19:57 | DISCHARGE SUMMARY ---
Physician: Tracey Landrum MD DATE OF ADMISSION: 12/21/2018 DATE OF DISCHARGE: 12/23/2018 DISCHARGE DIAGNOSES 1. Dehydration. 2. Generalized weakness. 3. Recurrent urinary tract infections. 4. Chronic obstructive pulmonary disease without exacerbation. 5. Type 2 diabetes mellitus with hyperglycemia with long-term use of insulin. 6. Bilateral pressure ulcers of the buttocks present on admission. 7. Chronic systolic heart failure, stage 3, class C. PRINCIPAL PROCEDURES 1. Chest x-ray showing no focal consolidation. 2. Blood cultures, no growth after 2 days. 3. Urinary culture is still in progress, results to follow on the day of discharge. HOSPITAL COURSE: She is an elderly woman who lives with her daughter and has a chronic indwelling Fo jessica because she is severely deconditioned, has chronic systolic congestive heart failure, and severe right knee arthritis, which limits her mobility. She cannot get to the bathroom in time and is alway s incontinent, so she has the Blanco. This has resulted in chronic and recurrent infection. She has chronic colonization with ESBL Klebsiella and will occasionally get sick from it. She also has diabe ilana type 2, on insulin, coronary artery disease, COPD, and chronic systolic congestive heart failure. She was just admitted to the hospital in October for a UTI. Between October and now, she has been followed by Home Health. She is getting physical therapy 2 days a week and home health aide 2 days a week to help her bathe. At times, she will get very weak and have periodic episodes of this, which is attributed to either her CHF or a UTI. She has had 2 of those episodes between discharge in and now, but she recovered on her own at home just waiting it out. In the last few days, she is h aving another weak episode. There is no fever, no chills. Same appetite. She is compliant with her medications, but her weakness was so severe today she could not get out of bed at all. Her minimum baseline is to be able to at least get up from a lying position to sitting position. Standard transf er, and take 1 or 2 steps to a wheelchair or chair. She was not able to do that at all. She came to the emergency room. She had normal vital signs, exam showed her to be with generalized w eakness, a white cell count that was normal. Slight rise in her creatinine. Slightly dry oral mucos a and just really weak. Urine is dirty, but it is hard to say if it is because of her chronic indwel ling Blanco and colonization or does she have a UTI. While in the emergency room, she developed sever e copious diarrhea, which weakened her even further. She was shaking with exhaustion by the time I g ot to see her. She was placed in observation for dehydration and weakness in the face of diarrhea and a possibly rec urrent UTI. She was started on antibiotics that would cover ESBL. She had no further diarrhea while she was in the hospital. Her slight bump in creatinine normalized. She was 1.6 on admission and do wn to 1.2 at discharge. BUN was 51 on admission and 37 by discharge. Other cause for weakness was i diana-deficiency anemia. Hemoglobin was 9.7. There was some evidence of hemolysis in that her reticul ocyte count was 4.02%. Normal is 2.3%. Absolute reticulocyte count was 0.130. High normal is 0.11. LDH was normal. She had a severely low iron at 22, TIBC 349, percent saturation 6%, and transferri n 249. The patient says that sometimes she tries to take iron, but it just makes her so nauseated sh e cannot continue it. So, I gave her a dose of Venofer while she was here of 200 mg. I would strong ly consider giving her more Venofer in the outpatient setting to bring her hemoglobin up. She also m ost likely has anemia of chronic disease with a GFR that is 31-44. After observation stay, the patient was evaluated for discharge. While her BUN and creatinine had im proved, vitals stayed stable, she was still very weak. She was not back to her baseline. Physical T herapy recommended the patient stay for at least 1-2 more days of therapy to get her back to baseline . She responded very nicely with physical therapy and was able to get back to her usual baseline. A gain, this is a very limited mobility patient. The most she is able to do is sit up in bed, stand, a nd walk 1 or 2 steps. She demonstrated that ability on the day of discharge and that is when she was felt stable enough to return to home. She and her daughter both wondered if she could be a candidat e for a hospital bed. I concur. This lady has chronic congestive heart failure, chronic venous baudilio is, orthopnea. A bed at home would most likely help with positioning and ease of getting up and out of bed. I put in a request for that, but hospitalists cannot order that, and it will be up to her [facility] care provider, Dr. Jose Luis Metcalf, to make that happen. I am returning her back to Home Health, PT, OT. I am not continuing her antibiotics, since that call was equivocal. Cultures are still pending at the time of discharge. I would not be surprised if lenin arenas continues to grow out ESBL Klebsiella, but she has no fever, no elevated white cell count. PHYSICAL EXAMINATION VITAL SIGNS: At discharge, temperature is 36.9, pulse 83, blood pressure 135/63, respirations 18, an d she is 94% saturated on 4 L nasal cannula. That is her usual oxygen requirement. She is on anywhe re from 3-4 L. Daughter knows to only keep her O2 saturation to 92% and not above that. During her stay, her usual NPH was given. Glucose in the last 2 days was 130s-140s on a regular basis. A1c was 7.4%. GENERAL: She is a stocky elderly woman, who looks much older than her stated age. Kyphosis of her s pine causes her to look like she is scrunched down in her bed with shoulders above her ears. She is 5 feet 7 inches tall, weighs 115 kg. HEAD AND NECK: Poor dentition, supple neck without any goiter or bruits. No JVD. BACK: The kyphosis of her spine is present. LUNGS: Diminished breath sounds at the bases, but no crackles, rhonchi or wheezing. CARDIOVASCULAR: PMI normally placed with a regular rate and rhythm and a soft systolic ejection murm ur. ABDOMEN: Protuberant because of her kyphosis, soft, nontender. No masses. EXTREMITIES: Her legs have no edema around her ankles. SKIN: Overall, skin turgor seems fragile. No tenting. GENITOURINARY: Blanco catheter in place. NEUROLOGIC: She is drowsy, forgetful. Greater than 30 minutes was spent coordinating discharge. Dr. Metcalf will see her in followup. This patient is also a candidate for Palliative Care consult. In discussing her wishes, she says that if she were ever to end up in bed on a permanent basis, never able to get out again, she would strongly consider Palliative Care transition to Hospice. TD: 12/23/2018 17:40
== END 2018-12-23 11:40 | disposition home health service (06) | DRG 641 ==
LOC: EDUNIT# → ED 08:55 → OBS 13:33 → OBSVTOIN 12-21 13:52 → MS2 12-21 17:21
PROVIDERS: ADMIT Specialist; ATTEND Specialist
DX: E86.0 Dehydration (principal); E11.9 Type 2 diabetes mellitus without complications; Z79.4 Long term (current) use of insulin; I11.0 Hypertensive heart disease with heart failure; I50.9 Heart failure, unspecified; J43.9 Emphysema, unspecified; T83.511A Infection and inflammatory reaction due to indwelling urethral catheter, initial encounter; K21.9 Gastro-esophageal reflux disease without esophagitis; K59.00 Constipation, unspecified; K64.9 Unspecified hemorrhoids; N30.00 Acute cystitis without hematuria; J32.9 Chronic sinusitis, unspecified; H91.90 Unspecified hearing loss, unspecified ear; F32.9 Major depressive disorder, single episode, unspecified; F41.9 Anxiety disorder, unspecified; M19.90 Unspecified osteoarthritis, unspecified site; G89.29 Other chronic pain; M54.9 Dorsalgia, unspecified; Z90.49 Acquired absence of other specified parts of digestive tract; Z90.710 Acquired absence of both cervix and uterus; I13.0 Hypertensive heart and chronic kidney disease with heart failure and stage 1 through stage 4 chronic kidney disease, or unspecified chronic kidney disease; Z66 Do not resuscitate; I50.22 Chronic systolic (congestive) heart failure; N18.4 Chronic kidney disease, stage 4 (severe); D64.9 Anemia, unspecified; B96.1 Klebsiella pneumoniae [K. pneumoniae] as the cause of diseases classified elsewhere; J44.9 Chronic obstructive pulmonary disease, unspecified; E11.65 Type 2 diabetes mellitus with hyperglycemia; E11.22 Type 2 diabetes mellitus with diabetic chronic kidney disease; L89.329 Pressure ulcer of left buttock, unspecified stage; L89.319 Pressure ulcer of right buttock, unspecified stage; M17.11 Unilateral primary osteoarthritis, right knee; R32 Unspecified urinary incontinence; I25.10 Atherosclerotic heart disease of native coronary artery without angina pectoris; Z87.440 Personal history of urinary (tract) infections; Z16.12 Extended spectrum beta lactamase (ESBL) resistance; R19.7 Diarrhea, unspecified; D50.9 Iron deficiency anemia, unspecified; D63.1 Anemia in chronic kidney disease; I87.8 Other specified disorders of veins; R06.01 Orthopnea; E66.01 Morbid (severe) obesity due to excess calories; E78.5 Hyperlipidemia, unspecified; E03.9 Hypothyroidism, unspecified; Z91.81 History of falling; Z87.891 Personal history of nicotine dependence; R53.81 Other malaise; Z68.39 Body mass index [BMI] 39.0-39.9, adult
CPT/HCPCS: 36415; 71045; 80048; 80053; 81001; 81599; 82607; 82728; 83036; 83540; 83605; 83615; 83690; 84466; 84484; 85025; 85044; 87040; 87077; 87086; 87493; 93005; 96361; 96365; 96367; 97162; 97164; 97530; 99284; A9270; G0378; J1756; J1815; J2185; 81003; 82272; 99283

== ENCOUNTER 2018-12-31 13:49 | Outpatient (CLI) | payer MEDICARE, OTHER | END 2018-12-31 13:50 | disposition critical access hospital (66) | LOC: EMS 13:49 | PROVIDERS: ATTEND Surgery | DX: R41.82 Altered mental status, unspecified (principal) | CPT/HCPCS: A0425; A0427 ==

== ENCOUNTER 2018-12-31 14:06 | Inpatient (IN) | payer MEDICARE, OTHER ==
--- NOTE | 2018-12-31 14:10 | ED Physician Documentation ---
History of Present Illness - Stated complaint Stated Complaint: AMS - History obtained from History obtained from: EMS, Other (Chart review) - Additonal information Additional information: Patient is a 73-year-old female with history of COPD, UTI with chronic indwelling Blanco, diabetes, CHF, and morbid obesity recently hospitalized from for weakness, dehydration, concern for infection presenting by EMS for altered mental status. Patient is unable to provide history and she is otherwise unaccompanied. Per EMS, patient's adult daughter, whom she lives with, states that she has not been feeling well and wanted her checked out. Blood glucose 168 per EMS.Chart review, patient is mostly bedbound and requires PT, OT, and home health. Patient has chronic colonization of ESBL Klebsiella from her indwelling Blanco catheter. Patient was recently treated with meropenem for possible UTI during her admission. No other known worsening or improving factors noted.Patient is a known DNR with minimal limited interventions othe rwise. Review of Systems Unable to obtain: Other (Altered) PD PAST MEDICAL HISTORY - Past Medical History Cardiovascular: Congestive heart failure, Hypertension Respiratory: COPD, Emphysema, Shortness of breath Neuro: None Endocrine/Autoimmune: Type 2 diabetes, HyPOthyroidism GI: GERD, Chronic constipation, Hemorrhoids NUTRITION PARTNER: None : Incontinence, Indwelling catheter HEENT: Chronic sinusitis, Chronic hearing loss Psych: Depression, Anxiety Musculoskeletal: Osteoarthritis, Chronic back pain Derm: Other - Past Surgical History Past Surgical History: Yes General: Cholecystectomy /NUTRITION PARTNER: Hysterectomy - Present Medications Home Medications: Ambulatory Orders Medication Instructions Recorded Confirmed Atorvastatin Calcium 40 mg PO DAILY 11/13/17 12/20/18 HYDROcod/ACETAM 5/325 [[place] 5/325] 1 tab PO TID PRN 11/13/17 12/20/18 Insulin NPH Hum/Reg Insulin Hm 16 units SUBQ 0730 11/13/17 12/20/18 [Novolin 70-30 100 Unit/ml Vial] Isosorbide Mononitrate ER [Imdur] 30 mg PO DAILY #60 tablet 11/15/17 12/20/18 Metoprolol Succinate [Toprol Xl] 50 mg PO DAILY #60 tablet 11/15/17 12/20/18 Spironolactone [Aldactone] 25 mg PO DAILY #60 tablet 11/15/17 12/20/18 Omeprazole 20 mg PO DAILY 08/31/18 12/20/18 Furosemide 20 mg PO BID 10/03/18 12/20/18 Insulin NPH Hum/Reg Insulin Hm 16 units SUBQ QPM #1 10/03/18 12/20/18 [Novolin 70-30 100 Unit/ml Vial] Levothyroxine Sodium 150 mcg PO DAILY #30 tablet 10/03/18 12/20/18 Saccharomyces Boulardii [Florastor] 250 mg PO BID #60 capsule 10/03/18 12/20/18 Bisacodyl [Dulcolax] 5 mg PO BID PRN 11/05/18 12/20/18 Rivaroxaban [Xarelto] 15 mg PO DAILY 11/05/18 12/20/18 Lisinopril [Zestril] 2.5 mg PO DAILY #30 tablet 12/23/18 - Allergies Allergies/Adverse Reactions: Allergies Allergy/AdvReac Type Severity Reaction Status Date / Time No Known Drug Allergies Allergy Verified 12/31/18 14:15 - Social History Does the pt smoke?: No Smoking Status: Former smoker Does the pt drink ETOH?: No Does the pt have substance abuse?: No - Immunizations Immunizations are current?: Yes - POLST Patient has POLST: Yes POLST Status: DNR PD ED PE NORMAL - General General: Well developed/nourished, Other (Drowsy, resting comfortably in bed, minimally responsive by verbal and physical cues.) - HEENT HEENT: Atraumatic, PERRL. No: Moist mucous membranes (Dry mucous membranes) - Neck Neck: Supple, no meningeal sign - Cardiac Cardiac: RRR, No murmur - Respiratory Respiratory: No respiratory distress, Clear bilaterally (No crackles, wheezes, or poor air movement noted) - Abdomen Abdomen: Normal bowel sounds, Soft, Non tender, Non distended - Female Female : Other (Blanco catheter in place) - Derm Derm: Normal color, Warm and dry, No rash - Extremities Extremities: No edema - Neuro Neuro: No: Alert and oriented X 3, No motor deficit, No sensory deficit - Psych Psych: No: Normal mood Results - Vitals Vitals: Vital Signs - 24 hr 12/31/18 12/31/18 12/31/18 14:08 15:08 15:44 Temperature 37.4 C 38 C H 37.1 C Heart Rate 104 H 103 H 95 Respiratory 18 22 20 Rate Blood Pressure 141/129 H 158/80 H 151/70 H O2 Saturation 87 L 93 90 L Oxygen O2 Source [] Nasal cannula O2 Source Nasal cannula Oxygen Flow Rate 4 - EKG (time done) 1431 Rate: Rate (enter#) (103) Rhythm: Sinus tachycardia Ischemia: Non specific changes - Labs Labs: Laboratory Tests 12/31/18 12/31/18 12/31/18 14:15 14:37 14:37 WBC 16.0 H RBC 3.65 L Hgb 9.8 L Hct 31.0 L MCV 85.1 MCH 26.7 L MCHC 31.4 L RDW 18.4 H Plt Count 258 MPV 8.2 Neut # (Auto) 13.5 H Lymph # (Auto) 0.8 L Rock # (Auto) 1.6 H Eos # (Auto) 0.0 Baso # (Auto) 0.2 H Absolute Nucleated RBC 0.01 Nucleated RBC % 0.1 Manual Slide Review Indicated RBC Morph Micro Appear 3+ ANISOCYTOSIS Sodium 138 Potassium 5.2 H Chloride 98 L Carbon Dioxide 31 Anion Gap 9.0 BUN 40 H Creatinine 1.5 H Estimated GFR (MDRD) 34 L Glucose 167 H Lactic Acid Calcium 8.8 Total Bilirubin 0.8 AST 14 ALT < 10 L Alkaline Phosphatase 66 Troponin I Total Protein 7.3 Albumin 3.5 Globulin 3.8 Albumin/Globulin Ratio 0.9 L Lipase 25 Urine Color Urine Clarity Urine pH Ur Specific [place] Urine Protein Urine Glucose (UA) Urine Ketones Urine Occult Blood Urine Nitrite Urine Bilirubin Urine Urobilinogen Ur Leukocyte Esterase Urine RBC Urine WBC Ur Epithelial Cells Ur Squamous Epith Cells Urine Bacteria Ur Microscopic Review Urine Culture Comments Influenza A (Rapid) Negative Influenza B (Rapid) Negative 12/31/18 12/31/18 12/31/18 14:37 14:37 15:00 WBC RBC Hgb Hct MCV MCH MCHC RDW Plt Count MPV Neut # (Auto) Lymph # (Auto) Rock # (Auto) Eos # (Auto) Baso # (Auto) Absolute Nucleated RBC Nucleated RBC % Manual Slide Review RBC Morph Micro Appear Sodium Potassium Chloride Carbon Dioxide Anion Gap BUN Creatinine Estimated GFR (MDRD) Glucose Lactic Acid 0.9 Calcium Total Bilirubin AST ALT Alkaline Phosphatase Troponin I < 0.04 Total Protein Albumin Globulin Albumin/Globulin Ratio Lipase Urine Color YELLOW Urine Clarity CLEAR Urine pH 7.5 Ur Specific [place] <=1.005 Urine Protein TRACE Urine Glucose (UA) NEGATIVE Urine Ketones NEGATIVE Urine Occult Blood TRACE-INTA Urine Nitrite NEGATIVE Urine Bilirubin NEGATIVE Urine Urobilinogen 1 (NORMAL) Ur Leukocyte Esterase SMALL H Urine RBC 0-5 Urine WBC 6-10 H Ur Epithelial Cells RARE Transitional Ur Squamous Epith Cells RARE Squamous Urine Bacteria Rare Ur Microscopic Review INDICATED Urine Culture Comments INDICATED Influenza A (Rapid) Influenza B (Rapid) PD MEDICAL DECISION MAKING - ED course Complexity details: reviewed old records, reviewed results, re-evaluated patient, considered differential, d/w supply chain consultant ED course: Unfortunately, patient is unable to provide much history and she is otherwise unaccompanied at this time. Patient does have a DNR scanned into the computer and otherwise per that document, is willing to receive limited interventions. At this time, she is requiring oxygen by nasal cannula, although this appears to likely be her baseline, although this may be slightly increased from her usual as she is hypoxic to theHigh 80s upon arrival. Exam does not reveal evidence of new trauma or obvious neurological deficit, although patient is altered. No obvious signs of systemic illness, but do have concerns for multiple sources, particularly Pneumonia and UTI given her history and chronic indwelling Blanco catheter.Patient does have known chronic colonization of ESBL Klebsiella. Patient received meropenem during her recent hospitalization from .Per chart review, patient was see if negative at that time. Started empiric workup, including CT head to evaluate for possible intracranial etiologies of altered mental status, as well as blood work including lactic acid and blood cultures, urine and urine culture, influenza testing. Given patient's history of CHF and hypoxia, did not feel she required 30mg/kg fluid bolusWith concern for sepsis, although not meeting all criteria at this time. Limited fluid resuscitation started instead. However, patient temperature did increase during ED stay and added 1 g IV Tylenol to address this elevation in temperature. Lab work returned with increase in leukocytosis, potassium, creatinine as compared to previous. Troponin and lactic acid within normal limits. Influenza testing also negative. Spoke with pharmacy at length regarding recent urine culture results and sensitivities and both agreed that starting cefepime empirically at this time was the best choice given high suspicion for urine as source of likely infection. Still awaiting imaging at this time.Imaging returned unremarkable. No evidence of acute pathology and CT head. Additionally, chest x-ray did not find evidence of a pneumonia or significant fluid overload such as pulmonary edema.Spoke with hospitalist as feel that patient is most appropriate for admission and he agrees. He did request additional lab work such as urine drug screen and BNP, which is ordered. Patient does have narcotics on med list, however, do not feel this is necessarily the cause of her alteration today, particularly given her physical exam. Patient and family updated. Family agreeable to this plan. Departure - Departure Disposition: [facility] DC/Xfer Clinical Impression: Altered mental status Qualifiers: Altered mental status type: unspecified Qualified Code(s): R41.82 - Altered mental status, unspecified
[2018-12-31] MEDS ORDERED: SODIUM CHLORIDE 0.9% 1,000 ML IV ONE (14:16)
[2018-12-31 14:51] LABS: BASOPHILS # (AUTO) 0.2 10^3/uL (0.0-0.1); BASOPHILS % (AUTO) 1.1 %; EOSINOPHILS % (AUTO) 0.3 %; HGB - HEMOGLOBIN 9.8 g/dL (12.0-16.0); LYMPHOCYTES # (AUTO) 0.8 10^3/uL (1.5-3.5); LYMPHOCYTES % (AUTO) 4.7 %; MEAN CORPUSCULAR HEMOGLOBIN 26.7 pg (27.0-31.0); MEAN CORPUSCULAR HGB CONC 31.4 g/dL (32.0-36.0); MEAN CORPUSCULAR VOLUME 85.1 fL (81.0-99.0); MEAN PLATELET VOLUME 8.2 fL (7.9-10.8); MONOCYTES # (AUTO) 1.6 10^3/uL (0.0-1.0); MONOCYTES % (AUTO) 9.8 %; NEUTROPHILS # (AUTO) 13.5 10^3/uL (1.5-6.6); NEUTROPHILS % (AUTO) 84.1 %; PLT - PLATELET COUNT 258 10^3/uL (130-450); RED BLOOD COUNT 3.65 10^6/uL (4.20-5.40); RED CELL DISTRIBUTION WIDTH 18.4 % (12.0-15.0)
--- NOTE | 2018-12-31 14:58 | XRAY Report ---
Reason: ams, concern for pneumonia Procedure Date: 12/31/2018 Accession Number: [id number] / [id number] Procedure: XR - Chest 1 View X-Ray CPT Code: 96738 FULL RESULT: EXAM: CHEST RADIOGRAPHY EXAM DATE: 12/31/2018 02:47 PM. CLINICAL HISTORY: Altered mental status, concern for pneumonia. COMPARISON: CHEST 1 VIEW 12/21/2018 7:44 AM. TECHNIQUE: Upright AP view. The patient is moderately rotated toward the right. FINDINGS: Lungs/Pleura: As before, there is linear atelectasis or scarring along the lateral aspect of the minor fissure on the right and laterally in the left midlung. No new airspace opacities. Lung volumes remain mildly low. No convincing interstitial abnormality. In the thorax or gross pleural fluid. Mediastinum: Mild cardiomegaly, as before. Other: None. IMPRESSION: 1. Mild cardiomegaly, as before. 2. Mild bandlike scarring or atelectasis along the minor fissure on the right and in the mid left lung, as before. No new airspace opacities. RADIA
[2018-12-31 14:59] LABS: ALBUMIN 3.5 g/dL (3.2-5.5); ALBUMIN/GLOBULIN RATIO 0.9 (1.0-2.2); ALKALINE PHOSPHATASE 66 IU/L (42-121); ALT ALANINE AMINOTRANSFERASE < 10 IU/L (10-60); AST ASPARTATE AMINOTRANSFERASE 14 IU/L (10-42); BILIRUBIN,TOTAL 0.8 mg/dL (0.2-1.0); BUN - BLOOD UREA NITROGEN 40 mg/dL (6-20); CALCIUM 8.8 mg/dL (8.5-10.3); CARBON DIOXIDE - CO2 31 mmol/L (21-32); CHLORIDE 98 mmol/L (101-111); CREATININE 1.5 mg/dL (0.4-1.0); GFR - MDRD 34 (>89); GLUCOSE 167 mg/dL (70-100); LIPASE 25 U/L (22-51); SODIUM 138 mmol/L (135-145); TOTAL PROTEIN 7.3 g/dL (6.7-8.2)
[2018-12-31 15:03] LABS: RBC MORPHOLOGY (MULTIPLE) 3+ ANISOCYTOSIS (NORMAL)
[2018-12-31] MEDS ORDERED: ACETAMINOPHEN 1,000 MG/100 ML 100 ML IV STA (15:15)
[2018-12-31] MEDS ORDERED: CEFEPIME 2 GM in SODIUM CHLORIDE 0.9% MINIBAG 100 ML IV STA (15:19)
[2018-12-31 15:23] LABS: BILIRUBIN,URINE NEGATIVE (NEGATIVE); GLUCOSE, URINE (UA) NEGATIVE (NEGATIVE); KETONES,URINE (UA) NEGATIVE (NEGATIVE); LEUKOCYTE ESTERASE, URINE SMALL (NEGATIVE); NITRITE,URINE NEGATIVE (NEGATIVE); OCCULT BLOOD,URINE TRACE-INTA (NEGATIVE); PH,URINE 7.5 PH (5.0-7.5); PROTEIN,URINE TRACE mg/dL (NEGATIVE); UROBILINOGEN,URINE 1 (NORMAL) E.U./dL (NORMAL)
[2018-12-31 15:40] LABS: CLARITY,URINE CLEAR (CLEAR)
[2018-12-31 15:42] LABS: BACTERIA,URINE Rare /HPF (None Seen); EPITHELIAL CELLS,UR RARE Transitional /HPF (<= Few); RBC,URINE 0-5 /HPF (0-5); SQUAMOUS EPITHELIAL CELL,UR RARE Squamous (<= Few)
--- NOTE | 2018-12-31 16:22 | CT Report ---
Reason: ams, almost unarousable, no trauma Procedure Date: 12/31/2018 Accession Number: [id number] / [id number] Procedure: CT - HEAD WO CPT Code: FULL RESULT: EXAM: CT HEAD EXAM DATE: 12/31/2018 03:34 PM. CLINICAL HISTORY: Ams, almost unarousable, no trauma. COMPARISON: HEAD ANGIO 11/13/2017 12:41 PM. TECHNIQUE: Multiaxial CT images were obtained from the foramen magnum to the vertex. Reformats: Sagittal and coronal. IV contrast: None. In accordance with CT protocol optimization, one or more of the following dose reduction techniques were utilized for this exam: automated exposure control, adjustment of mA and/or KV based on patient size, or use of iterative reconstructive technique. FINDINGS: Parenchyma: No intraparenchymal hemorrhage. No evidence of mass, midline shift, or CT findings of acute infarct. Morris-white differentiation is distinct. Supratentorial white matter hypoattenuation is unchanged. Extraaxial Spaces: Mild volume loss. No subdural or epidural collections identified. Ventricles: Normal in size and position. Sinuses and Orbits: Imaged paranasal sinuses, orbits, and mastoids show no significant abnormality. Bones: No evidence of fracture or calvarial defect. Other: None. IMPRESSION: No acute intracranial abnormality. RADIA
[2018-12-31 17:17] LABS: MUDS CUTOFF CONCENTRATIONS CUTOFF CONC BELOW:
[2018-12-31] MEDS ORDERED: ONDANSETRON 4 MG/2 ML VIAL IVP PRN (17:25)
[2018-12-31] MEDS ORDERED: ACETAMINOPHEN 325 MG TABLET PO PRN (17:25)
[2018-12-31 17:33] LABS: COCAINE SCREEN URINE NEGATIVE (NEGATIVE); METHAMPHETAMINES SCREEN, URINE NEGATIVE (NEGATIVE)
[2018-12-31 17:34] LABS: AMPHETAMINE SCREEN,URINE NEGATIVE (NEGATIVE); BENZODIAZEPINES SCREEN, URINE NEGATIVE (NEGATIVE); METHADONE SCREEN, URINE NEGATIVE (NEGATIVE); OPIATE SCREEN, URINE POSITIVE (NEGATIVE); OXYCODONE SCREEN, URINE NEGATIVE (NEGATIVE); PROPOXYPHENE SCREEN, URINE NEGATIVE (NEGATIVE); TRICYCLIC ANTIDEPRESSANT,URINE NEGATIVE (NEGATIVE)
[2018-12-31] MEDS ORDERED: BISACODYL 5 MG TABLET PO PRN (17:50)
--- NOTE | 2018-12-31 18:10 | HISTORY & PHYSICAL EXAMINATION ---
Chief Complaint - Chief Complaint Chief Complaint: AMS History of Present Illness - History of Present Illness HPI Comment/Other: Ms.Lanetta Pillai is a 72-year-old white female with a past medical history significant of chronic pain, morbidly obese, chronic indwelling roldan with frequent bladder infection, fractured toes, DM type 2, CAD, HTN, hyperlipidemia, CHF,and hypothyroidism, who presented to the ED after her daughter found her with altered mental status from last Sunday. Pt is alert but she is very lethargic, could not response any questions. pt's daughter is at her bedside in ER. Her daughter provide her history. Her daughter report she is only person directly with PT/OT, home health AIDS to take care of pt at her home. Pt was recently hospitalized from for weakness, dehydration. Per pt's daughter report, from Last Sunday, pt became felling chill, and sharking, she can not standup, and can not walk at all. Pt's daughter report patient has been mostly bed bound since Sunday. Usually pt can standup by self and can go to bathroom with help. Patient has chronic colonization of ESBL Klebsiella from her indwelling Roldan catheter. Her daughter also report pt has been on diarrhea for two days. No fever, chest pain, headache, focus neurological deficits were reported from her daughter. The care plan was discussed with pt's daughter. Pt's daughter agree pt may need palliative and hospice care if pt's medical condition s continue deteriorated. pt is admitted for AMS in medical floor for further evaluation and treatment. History - Past Medical History Cardiovascular: reports: Congestive heart failure, Hypertension Respiratory: reports: COPD, Emphysema, Shortness of breath Neuro: reports: None Endocrine/Autoimmune: reports: Type 2 diabetes, HyPOthyroidism GI: reports: GERD, Chronic constipation, Hemorrhoids PROPERTY HANDLER: reports: None : reports: Incontinence, Indwelling catheter HEENT: reports: Chronic sinusitis, Chronic hearing loss Psych: reports: Depression, Anxiety Musculoskeletal: reports: Osteoarthritis, Chronic back pain Derm: reports: Other MRSA Hx?: No - Past Surgical History General: reports: Cholecystectomy /PROPERTY HANDLER: reports: Hysterectomy - Family & Social History Family History: Mother: , Cancer, Father: , CAD, Diabetes, Type 2, Hypertension, Sister: , Cancer Family History Comment/Other: Mother from an unknown type of cancer, father of CAD, HTN and he was diabetic, sister after complications of a CABG, another sister of cancer, a brother of CAD and patient has one sister who is alive and well. 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 She was for 32 years, but her about 4 years ago. She had 3 children, 3 girls and one boy. The boy at age 14 years. She raised her family in the state [facility]. Patient was a life-long smoker, but quit about 6 years ago after a really bad case of pneumonia. Patient denies alcohol, or other illicit drug use. She wishes to be a DNR. A long discussion about quality of life and possible upcoming procedures in the event she would need a cardiac cath. Patient was clear about not wanting anything invasive that would prolong her life. - Substance History Use: Uses substance without health or social issues: Tobacco (quit 6 years ago; no etoh use) - POLST Patient has POLST: Yes POLST Status: DNR Meds/Allgy - Home Medications Home Medications: Ambulatory Orders Medication Instructions Recorded Confirmed Atorvastatin Calcium 40 mg PO DAILY 11/13/17 12/31/18 HYDROcod/ACETAM 5/325 [Weed 5/325] 1 tab PO TID PRN 11/13/17 12/31/18 Insulin NPH Hum/Reg Insulin Hm 16 units SUBQ 0730 11/13/17 12/31/18 [Novolin 70-30 100 Unit/ml Vial] Isosorbide Mononitrate ER [Imdur] 30 mg PO DAILY #60 tablet 11/15/17 12/31/18 Metoprolol Succinate [Toprol Xl] 50 mg PO DAILY #60 tablet 11/15/17 12/31/18 Spironolactone [Aldactone] 25 mg PO DAILY #60 tablet 11/15/17 12/31/18 Omeprazole 20 mg PO DAILY 08/31/18 12/31/18 Furosemide 20 mg PO BID 10/03/18 12/31/18 Insulin NPH Hum/Reg Insulin Hm 16 units SUBQ QPM #1 10/03/18 12/31/18 [Novolin 70-30 100 Unit/ml Vial] Levothyroxine Sodium 150 mcg PO DAILY #30 tablet 10/03/18 12/31/18 Saccharomyces Boulardii [Florastor] 250 mg PO BID #60 capsule 10/03/18 12/31/18 Bisacodyl [Dulcolax] 5 mg PO BID PRN 11/05/18 12/31/18 Rivaroxaban [Xarelto] 15 mg PO DAILY 11/05/18 12/31/18 Lisinopril [Zestril] 2.5 mg PO DAILY #30 tablet 12/23/18 12/31/18 - Allergies Allergies/Adverse Reactions: Allergies Allergy/AdvReac Type Severity Reaction Status Date / Time No Known Drug Allergies Allergy Verified 12/31/18 14:15 Review of Systems - Constitutional Constitutional: reports: Fatigue, Weakness, Poor appetite. denies: Fever, Chills, Malaise, Diaphoresis, Night sweats - Eyes Eyes: denies: Pain, Irritation, Amaurosis, Blurred vision, Spots in vision, Field loss, Vision loss, Dipolpia - Ears, Nose & Throat Ears, Nose & Throat: denies: Ear pain, Hearing loss, Hearing aids, Tinnitus, Vertigo, Nasal pain, Nasal discharge, Nosebleeds, Nasal obstruction, Postnasal drainage, Sore throat, Mouth lesions, Bleeding gums - Cardiovascular Cariovascular: denies: Irregular heart rate, Palpitations, Chest pain, Edema, Lightheadedness, Syncope, Exertional dyspnea, Decr. exercise tolerance - Respiratory Respiratory: denies: Cough, Sputum production, Wheezing, Snoring, Hemoptysis, Orthopnea, SOB at rest, SOB with exertion - Gastrointestinal Gastrointestinal: reports: Diarrhea. denies: Abdominal pain, Abdominal distention, Constipation, Change in bowel habits, Rectal bleeding, Black stools, Bloody stools, Nausea, Vomiting, Bile emesis, Alvarez blood emesis, Coffee grounds emesis, Bloating - Genitourinary Genitourinary: denies: Dysuria, Frequency, Urgency, Hematuria, Incontinence, Flank pain, Nocturia, Urethral discharge - Musculoskeletal Musculoskeletal: denies: Muscle pain, Back pain, Muscle aches, Stiffness, Limited range of motion, Muscle weakness, Gout, Joint pain - Integumentary Integumentary: denies: Rash, Pruritis, Lesions, Dryness, Lumps, Acne, Pigment changes, Nail changes - Neurological Neurological: reports: General weakness. denies: Focal weakness, Headache, Dizziness, Numbness, Memory problems, Pre-existing deficit, Abnormal gait, Seizures, Incoordination, Slurred speech - Psychiatric Psychiatric: denies: Depression, Anxiety, Suicidal, Delusions, Hallucinations, Homicidal - Endocrine Endocrine: denies: Polyuria, Polydypsia, Polyphagia, Intolerance to cold - Hematologic/Lymphatic Hematologic/Lymphatic: reports: Recurrent infections. denies: Anemia, Bruising, Petechiae, Blood clots, Lymphadenopathy, Bleeding tendencies Prior Level of Functionality: bed-bound in her most of time Exam - Vital Signs Reviewed Vital Signs: Yes Vital Signs: Vital Signs x48h Temp Pulse Resp BP Pulse Ox 12/31/18 17:17 36.4 C L 97 24 149/66 H 91 L 12/31/18 15:44 37.1 C 95 20 151/70 H 90 L 12/31/18 15:08 38 C H 103 H 22 158/80 H 93 12/31/18 14:08 37.4 C 104 H 18 141/129 H 87 L - Physical Exam General Appearance: positive: No acute distress, Alert, Lethargic Eyes Bilateral: positive: Normal inspection, PERRL, No lid inflammation, Conjunctivae nml ENT: positive: ENT inspection nml, Pharynx nml, No signs of dehydration. negative: Purulent nasal drainage, Pharyngeal erythema, Oral lesions Neck: positive: Nml inspection, Thyroid nml, No JVD, Trachea midline. negative: Thyromegaly, Lymphadenopathy (R), Lymphadenopathy (L), Stiff neck, Swelling/bruising, Tracheal deviation Respiratory: positive: Chest non-tender, No respiratory distress, Breath sounds nml. negative: Wheezes, Rales, Rhonchi Cardiovascular: positive: Regular rate & rhythm, No murmur, No gallop, Irregularly irregular. negative: Extrasystoles, Tachycardia, Bradycardia, JVD present, Systolic murmur, Diastolic murmur Peripheral Pulses: positive: 2+ Abdomen: positive: Non-tender, No organomegaly, No distention. negative: Tenderness, Guarding, Rebound Back: positive: Nml inspection. negative: CVA tenderness (R), CVA tenderness (L) Skin: positive: Color nml, No rash, Warm, Dry. negative: Cyanosis, Diaphoresis, Pallor Extremities: positive: Non-tender, Nml appearance. negative: Calf tenderness, Joint swelling, Edgar's sign/cords Neurologic/Psychiatric: negative: Sensory loss, Facial droop Sepsis Event Note (H) - Evaluation Current Stage of Sepsis: Sepsis Possible source of Sepsis: positive: Genitourinary - Sepsis Criteria Sepsis Criteria: Recorded Temperature greater than 38.3C or Less than 36C, Recorded Heart Rate greater than 90 bpm, Respiratory: Increasing oxygen requirements, WBC count greater than 12,000 or less than 4000, DRYWALL FOREMAN: altered consciousness (unrelated to primary neuro pathology) Conclusion/Plan - Problem List (1) Altered mental status Conclusion/Plan: pt is alert but lethargic, she could not answer any questions. pt has hx of acute on chronic bladder infection in UA analysis, pt present fever at ER, elevated WBC. pt's on going infection with sepsis may contribute to her AMS. CT of head is unremarkable. treat with Meropenem for underline UTI and bladder infection check C.diff for diarrhea IVF for NS for her diarrhea and fluid loss Neuro check (2) Sepsis Conclusion/Plan: pt present elevated WBC, fever, AMS, and tachycardia, UTI is the resource of her infection now. pt's BP is stable now. blood culture, followup treat with antibiotics for UTI IVF of NS tele and vital monitor closely (3) UTI (urinary tract infection) Conclusion/Plan: pt had chronic indwell catherization of Roldan, and recurrent bladder infection with ESBL possible colorization for multiple admission. today UA analysis indicate infection continue UA culture and sensitivity study treat with Meropenem IVF of NS Qualifiers: Qualified Code(s): N30.00 - Acute cystitis without hematuria (4) Diarrhea Conclusion/Plan: pt has diarrhea at home. we will do C.Diff study, and isolation for C.diff until proved IVF of NS for fluid loss daily vital and lab monitor (5) Diabetes mellitus type 2 in obese Conclusion/Plan: pt took insulin at home. will resume home insulin slide scale for insulin, ACHS and hypoglycemia (6) CKD stage 3 secondary to diabetes Conclusion/Plan: it seems stable now, continue gently hydration, and lab monitor, hold neph rological agents (7) HTN (hypertension) Conclusion/Plan: stable, will resume home meds continue vital monitor (8) Do not intubate, cardiopulmonary resuscitation (CPR)-only code status Conclusion/Plan: pt's daughter request DNR, state pt always want DNR - Lab Results Fish Bones: 01/01/19 05:25 01/01/19 05:25 Core Measures - Anticipated LOS I expect patient to be DC'd or transferred within 96 hours.: Yes - DVT/VTE - Prophylaxis VTE/DVT Device ordered at admit?: Yes VTE/DVT Prophylaxis med ordered at admit?: Yes
[2018-12-31] MEDS: SODIUM CHLORIDE 0.9% 1,000 ML IV SCH (19:10)
[2018-12-31] MEDS ORDERED: hydrALAZINE INJ 20 MG/ML VIAL IVP PRN (19:20)
[2018-12-31] MEDS: RIVAROXABAN 15 MG TABLET PO SCH (19:34)
[2018-12-31] MEDS: METOPROLOL SUCCINATE 50 MG TABLET PO SCH (19:34)
[2018-12-31] MEDS: FAMOTIDINE 20 MG TABLET PO SCH (20:23)
[2018-12-31] MEDS: INSULIN ASPART 300 UNIT/3 ML PEN SUBQ SCH (20:59)
[2018-12-31] MEDS ORDERED: HEPARIN 5,000 UNIT/ML VIAL SUBQ SCH (21:00)
[2018-12-31] MEDS ORDERED: INSULIN 70/30 HUMAN 100 UNIT/1 ML 10 ML MDV SUBQ SCH (21:00)
[2018-12-31] MEDS: ZINC OXIDE 20% OINT 28.35 GM TUBE TOP PRN ×2 (21:03→23:49)
[2018-12-31] MEDS: MEROPENEM 1 GM in SODIUM CHLORIDE 0.9% MINIBAG 100 ML IV SCH (21:07)
[2018-12-31] MEDS ORDERED: ACETAMINOPHEN 1,000 MG/100 ML 100 ML IV PRN (21:20)
[2019-01-01] MEDS: SODIUM CHLORIDE FLUSH 0.9% 10 ML SYRINGE IVP SCH ×3 (01:34→17:12)
[2019-01-01] MEDS: LEVOTHYROXINE 75 MCG TABLET PO SCH (06:02)
[2019-01-01] MEDS: SODIUM CHLORIDE 0.9% 1,000 ML IV SCH ×2 (06:04→16:28)
[2019-01-01 06:07] LABS: ALBUMIN 3.2 g/dL (3.2-5.5); ALBUMIN/GLOBULIN RATIO 0.8 (1.0-2.2); ALKALINE PHOSPHATASE 66 IU/L (42-121); ALT ALANINE AMINOTRANSFERASE < 10 IU/L (10-60); AST ASPARTATE AMINOTRANSFERASE 13 IU/L (10-42); BILIRUBIN,TOTAL 0.8 mg/dL (0.2-1.0); BUN - BLOOD UREA NITROGEN 40 mg/dL (6-20); CALCIUM 8.6 mg/dL (8.5-10.3); CARBON DIOXIDE - CO2 30 mmol/L (21-32); CHLORIDE 101 mmol/L (101-111); CREATININE 1.7 mg/dL (0.4-1.0); GFR - MDRD 29 (>89); GLUCOSE 145 mg/dL (70-100); MAGNESIUM 1.4 mg/dL (1.7-2.8); SODIUM 143 mmol/L (135-145)
[2019-01-01 06:08] LABS: BASOPHILS # (AUTO) 0.2 10^3/uL (0.0-0.1); BASOPHILS % (AUTO) 1.2 %; EOSINOPHILS # (AUTO) 0.1 10^3/uL (0.0-0.7); EOSINOPHILS % (AUTO) 0.5 %; HGB - HEMOGLOBIN 10.1 g/dL (12.0-16.0); LYMPHOCYTES # (AUTO) 1.5 10^3/uL (1.5-3.5); LYMPHOCYTES % (AUTO) 10.2 %; MEAN CORPUSCULAR HEMOGLOBIN 25.6 pg (27.0-31.0); MEAN CORPUSCULAR HGB CONC 28.8 g/dL (32.0-36.0); MEAN CORPUSCULAR VOLUME 88.9 fL (81.0-99.0); MEAN PLATELET VOLUME 8.4 fL (7.9-10.8); MONOCYTES # (AUTO) 1.3 10^3/uL (0.0-1.0); MONOCYTES % (AUTO) 8.7 %; NEUTROPHILS # (AUTO) 11.8 10^3/uL (1.5-6.6); NEUTROPHILS % (AUTO) 79.4 %; PLT - PLATELET COUNT 249 10^3/uL (130-450); RED BLOOD COUNT 3.93 10^6/uL (4.20-5.40); RED CELL DISTRIBUTION WIDTH 18.7 % (12.0-15.0); WHITE BLOOD COUNT 14.9 x10^3/uL (4.8-10.8)
[2019-01-01 06:25] LABS: HB2 TOTAL 10.5 g/dL; HEMOGLOBIN A1C 0.54 g/dL; HEMOGLOBIN A1C % 6.9 % (4.6-6.2)
[2019-01-01] MEDS ORDERED: SODIUM CHLORIDE 0.9% 1,000 ML IV SCH ×2 (07:19→07:20)
[2019-01-01] MEDS ORDERED: MAGNESIUM SULFATE 2 GRAM 2 GM/50 ML BAG IV ONE (08:00)
[2019-01-01] MEDS: POLYETHYLENE GLYCOL 3350 17 GM PACKET PO SCH (08:46)
[2019-01-01] MEDS ORDERED: METOPROLOL SUCCINATE 50 MG TABLET PO SCH (09:00)
[2019-01-01] MEDS: FAMOTIDINE 20 MG TABLET PO SCH ×2 (09:49→22:10)
[2019-01-01] MEDS: SPIRONOLACTONE 25 MG TABLET PO SCH (09:49)
[2019-01-01] MEDS: VANCOMYCIN 125 MG CAPSULE PO SCH ×4 (09:49→22:10)
[2019-01-01] MEDS: METOPROLOL SUCCINATE 50 MG TABLET PO SCH (09:49)
[2019-01-01] MEDS: ISOSORBIDE MONONITRATE ER 30 MG TABLET PO SCH (09:50)
[2019-01-01] MEDS: LISINOPRIL 5 MG TABLET PO SCH (09:50)
[2019-01-01] MEDS: MEROPENEM 1 GM in SODIUM CHLORIDE 0.9% MINIBAG 100 ML IV SCH ×2 (09:51→22:10)
[2019-01-01] MEDS: INSULIN ASPART 300 UNIT/3 ML PEN SUBQ SCH ×4 (10:08→22:12)
--- NOTE | 2019-01-01 16:05 | PROVIDER PROGRESS NOTE ---
Subjective - Prog Note Date Prog Note Date: 01/01/19 - Subjective Pt reports feeling: Improved Subjective: pt is alert and oriented today, has great improvement today. pt denies chest pain, SOB. pt is comfortable sitting at bed to eat her breakfast by her self. pt talk with logically. she state she did not remember what happened on yesterday at all. Current Medications - Current Medications Current Medications: Active Medications Acetaminophen (Tylenol) 650 mg PO Q4HR PRN PRN Reason: Pain 1 to 4 Hydrocodone Bitart/Acetaminophen ([place] 5/325) 1 tab PO TID PRN PRN Reason: PAIN Atorvastatin Calcium (Lipitor) 40 mg PO QPM PERNELL Bisacodyl (Dulcolax) 5 mg PO BID PRN PRN Reason: Constipation Famotidine (Pepcid) 10 mg PO BID [facility] Last Admin: 01/01/19 09:49 Dose: 10 mg Hydralazine HCl (Apresoline Inj) 10 mg IVP QID PRN PRN Reason: Hypertensive Emergency Meropenem 1 gm/ Sodium (Chloride) 100 mls @ 200 mls/hr IV BID [facility] Last Infusion: 01/01/19 11:58 Dose: Infused Acetaminophen (Ofirmev) 100 mls @ 400 mls/hr IV Q6HR PRN PRN Reason: PAIN Sodium Chloride (Normal Saline 0.9%) 1,000 mls @ 100 mls/hr IV .Q10H [facility] Stop: 01/02/19 12:59 Last Admin: 01/01/19 16:28 Dose: 100 mls/hr Insulin Aspart (Novolog) 2 - 10 unit SUBQ 0800,1200,1700,2100 [facility]; Protocol Last Admin: 01/01/19 17:09 Dose: 4 unit Insulin Human Isoph/Insulin Regular (Novolin) 10 unit SUBQ QPM [facility] Isosorbide Mononitrate (Imdur) 30 mg PO DAILY [facility] Last Admin: 01/01/19 09:50 Dose: 30 mg Levothyroxine Sodium (Synthroid) 150 mcg PO QDAC [facility] Last Admin: 01/01/19 06:02 Dose: 150 mcg Lisinopril (Zestril) 2.5 mg PO DAILY [facility] Last Admin: 01/01/19 09:50 Dose: 2.5 mg Metoprolol Succinate (Toprol Xl) 50 mg PO DAILY [facility] Last Admin: 01/01/19 09:49 Dose: 50 mg Multi-Ingredient Ointment (Zinc Oxide) 1 applic TOP PRN PRN PRN Reason: Skin Care Stop: 01/07/19 20:26 Last Admin: 12/31/18 23:49 Dose: 1 applic Ondansetron HCl (Zofran Inj) 4 mg IVP Q6HR PRN PRN Reason: Nausea / Vomiting Polyethylene Glycol (Miralax) 17 gm PO DAILY [facility] Last Admin: 01/01/19 08:46 Dose: Not Given Rivaroxaban (Xarelto) 15 mg PO QDDINNER [facility] Last Admin: 01/01/19 17:09 Dose: 15 mg Saccharomyces Boulardii (Florastor) 500 mg PO BIDWM [facility] Last Admin: 01/01/19 17:08 Dose: 500 mg Sodium Chloride (Normal Saline Flush 0.9%) 10 ml IVP PRN PRN PRN Reason: NEEDED PER PROVIDER ORDERS Sodium Chloride (Normal Saline Flush 0.9%) 10 ml IVP 0100,0900,1700 [facility] Last Admin: 01/01/19 17:12 Dose: Not Given Spironolactone (Aldactone) 25 mg PO DAILY [facility] Last Admin: 01/01/19 09:49 Dose: 25 mg Vancomycin HCl (Vancocin) 125 mg PO QID [facility] Last Admin: 01/01/19 17:09 Dose: 125 mg Atorvastatin Calcium 40 mg PO DAILY 11/13/17 HYDROcod/ACETAM 5/325 [[place] 5/325] 1 tab PO TID PRN 11/13/17 Insulin NPH Hum/Reg Insulin Hm [Novolin 70-30 100 Unit/ml Vial] 16 units SUBQ 0730 11/13/17 Omeprazole 20 mg PO DAILY 08/31/18 Furosemide 20 mg PO BID 10/03/18 Bisacodyl [Dulcolax] 5 mg PO BID PRN 11/05/18 Rivaroxaban [Xarelto] 15 mg PO DAILY 11/05/18 Objective - Vital Signs/Intake & Output Reviewed Vital Signs: Yes Vital Signs: Vital Signs x48h Temp Pulse Resp BP Pulse Ox 01/01/19 11:32 37.0 C 81 18 114/71 93 Intake & Output: Intake & Output 12/29/18 12/30/18 12/31/18 01/01/19 23:59 23:59 23:59 23:59 Intake Total 1300 1580.97 Output Total 350 1150 Balance 950 430.97 - Objective General Appearance: positive: No acute distress, Alert. negative: Lethargic Eyes Bilateral: positive: Normal inspection, PERRL, No lid inflammation, Conjunctivae nml ENT: positive: ENT inspection nml, Pharynx nml, No signs of dehydration. negative: Purulent nasal drainage, Pharyngeal erythema, Oral lesions Neck: positive: Nml inspection, Thyroid nml, No JVD, Trachea midline. negative: Thyromegaly, Lymphadenopathy (R), Lymphadenopathy (L), Stiff neck, Swelling/bruising, Tracheal deviation Respiratory: positive: Chest non-tender, No respiratory distress, Breath sounds nml. negative: Wheezes, Rales, Rhonchi Cardiovascular: positive: Regular rate & rhythm, No murmur, No gallop. negative: Irregularly irregular, Extrasystoles, Tachycardia, Bradycardia, JVD present, Systolic murmur, Diastolic murmur Peripheral Pulses: 2+ Radial (R), 2+ Radial (L), 2+ Dorsalis pedis (R), 2+ Dorsalis pedis (L) Abdomen: positive: Non-tender, No organomegaly, Nml bowel sounds, No distention. negative: Tenderness, Guarding, Rebound Back: positive: Nml inspection. negative: CVA tenderness (R), CVA tenderness (L) Skin: positive: Color nml, No rash, Warm, Dry. negative: Cyanosis, Diaphoresis, Pallor Extremities: positive: Non-tender, Full ROM, Nml appearance. negative: Calf tenderness, Joint swelling, Edgar's sign/cords Neurologic/Psychiatric: positive: Oriented x3, Sensation nml, Mood/affect nml. negative: Weakness, Sensory loss, Facial droop, Slurred/abnml speech, Depressed mood/affect - Lab Results Fish Bones: 01/01/19 05:25 01/01/19 05:25 Other Labs: Lab Results x24hrs 01/01/19 01/01/19 01/01/19 Range/Units 05:25 05:25 05:25 WBC 14.9 H (4.8-10.8) x10^3/uL RBC 3.93 L (4.20-5.40) 10^6/uL Hgb 10.1 L (12.0-16.0) g/dL Hct 34.9 L (37.0-47.0) % MCV 88.9 (81.0-99.0) fL MCH 25.6 L (27.0-31.0) pg MCHC 28.8 L (32.0-36.0) g/dL RDW 18.7 H (12.0-15.0) % Plt Count 249 (130-450) 10^3/uL MPV 8.4 (7.9-10.8) fL Neut # (Auto) 11.8 H (1.5-6.6) 10^3/uL Lymph # (Auto) 1.5 (1.5-3.5) 10^3/uL Foard # (Auto) 1.3 H (0.0-1.0) 10^3/uL Eos # (Auto) 0.1 (0.0-0.7) 10^3/uL Baso # (Auto) 0.2 H (0.0-0.1) 10^3/uL Absolute Nucleated RBC 0.00 x10^3/uL Nucleated RBC % 0.0 /100WBC Sodium 143 (135-145) mmol/L Potassium 4.5 (3.5-5.0) mmol/L Chloride 101 (101-111) mmol/L Carbon Dioxide 30 (21-32) mmol/L Anion Gap 12.0 (6-13) BUN 40 H (6-20) mg/dL Creatinine 1.7 H (0.4-1.0) mg/dL Estimated GFR (MDRD) 29 L (>89) Glucose 145 H (70-100) mg/dL Glycated Hemoglobin (4.6-6.2) % Estim Average Glucose (70-100) Calcium 8.6 (8.5-10.3) mg/dL Magnesium 1.4 L (1.7-2.8) mg/dL Total Bilirubin 0.8 (0.2-1.0) mg/dL AST 13 (10-42) IU/L ALT < 10 L (10-60) IU/L Alkaline Phosphatase 66 (42-121) IU/L B-Natriuretic Peptide (5-100) pg/mL Total Protein 7.0 (6.7-8.2) g/dL Albumin 3.2 (3.2-5.5) g/dL Globulin 3.8 (2.1-4.2) g/dL Albumin/Globulin Ratio 0.8 L (1.0-2.2) TSH 2.45 (0.34-5.60) uIU/mL Urine Opiates Screen (NEGATIVE) Ur Oxycodone Screen (NEGATIVE) Urine Methadone Screen (NEGATIVE) Ur Propoxyphene Screen (NEGATIVE) Ur Barbiturates Screen (NEGATIVE) Ur Tricyclics Screen (NEGATIVE) Ur Phencyclidine Scrn (NEGATIVE) Ur Amphetamine Screen (NEGATIVE) U Methamphetamines Scrn (NEGATIVE) U Benzodiazepines Scrn (NEGATIVE) Urine Cocaine Screen (NEGATIVE) U Cannabinoids Screen (NEGATIVE) C. difficile Tox B Gene (NEGATIVE) 01/01/19 12/31/18 12/31/18 Range/Units 05:25 18:20 15:00 WBC (4.8-10.8) x10^3/uL RBC (4.20-5.40) 10^6/uL Hgb (12.0-16.0) g/dL Hct (37.0-47.0) % MCV (81.0-99.0) fL MCH (27.0-31.0) pg MCHC (32.0-36.0) g/dL RDW (12.0-15.0) % Plt Count (130-450) 10^3/uL MPV (7.9-10.8) fL Neut # (Auto) (1.5-6.6) 10^3/uL Lymph # (Auto) (1.5-3.5) 10^3/uL Foard # (Auto) (0.0-1.0) 10^3/uL Eos # (Auto) (0.0-0.7) 10^3/uL Baso # (Auto) (0.0-0.1) 10^3/uL Absolute Nucleated RBC x10^3/uL Nucleated RBC % /100WBC Sodium (135-145) mmol/L Potassium (3.5-5.0) mmol/L Chloride (101-111) mmol/L Carbon Dioxide (21-32) mmol/L Anion Gap (6-13) BUN (6-20) mg/dL Creatinine (0.4-1.0) mg/dL Estimated GFR (MDRD) (>89) Glucose (70-100) mg/dL Glycated Hemoglobin 6.9 H (4.6-6.2) % Estim Average Glucose 151 H (70-100) Calcium (8.5-10.3) mg/dL Magnesium (1.7-2.8) mg/dL Total Bilirubin (0.2-1.0) mg/dL AST (10-42) IU/L ALT (10-60) IU/L Alkaline Phosphatase (42-121) IU/L B-Natriuretic Peptide (5-100) pg/mL Total Protein (6.7-8.2) g/dL Albumin (3.2-5.5) g/dL Globulin (2.1-4.2) g/dL Albumin/Globulin Ratio (1.0-2.2) TSH (0.34-5.60) uIU/mL Urine Opiates Screen POSITIVE H (NEGATIVE) Ur Oxycodone Screen NEGATIVE (NEGATIVE) Urine Methadone Screen NEGATIVE (NEGATIVE) Ur Propoxyphene Screen NEGATIVE (NEGATIVE) Ur Barbiturates Screen NEGATIVE (NEGATIVE) Ur Tricyclics Screen NEGATIVE (NEGATIVE) Ur Phencyclidine Scrn NEGATIVE (NEGATIVE) Ur Amphetamine Screen NEGATIVE (NEGATIVE) U Methamphetamines Scrn NEGATIVE (NEGATIVE) U Benzodiazepines Scrn NEGATIVE (NEGATIVE) Urine Cocaine Screen NEGATIVE (NEGATIVE) U Cannabinoids Screen NEGATIVE (NEGATIVE) C. difficile Tox B Gene POSITIVE A* (NEGATIVE) 12/31/18 Range/Units 14:37 WBC (4.8-10.8) x10^3/uL RBC (4.20-5.40) 10^6/uL Hgb (12.0-16.0) g/dL Hct (37.0-47.0) % MCV (81.0-99.0) fL MCH (27.0-31.0) pg MCHC (32.0-36.0) g/dL RDW (12.0-15.0) % Plt Count (130-450) 10^3/uL MPV (7.9-10.8) fL Neut # (Auto) (1.5-6.6) 10^3/uL Lymph # (Auto) (1.5-3.5) 10^3/uL Foard # (Auto) (0.0-1.0) 10^3/uL Eos # (Auto) (0.0-0.7) 10^3/uL Baso # (Auto) (0.0-0.1) 10^3/uL Absolute Nucleated RBC x10^3/uL Nucleated RBC % /100WBC Sodium (135-145) mmol/L Potassium (3.5-5.0) mmol/L Chloride (101-111) mmol/L Carbon Dioxide (21-32) mmol/L Anion Gap (6-13) BUN (6-20) mg/dL Creatinine (0.4-1.0) mg/dL Estimated GFR (MDRD) (>89) Glucose (70-100) mg/dL Glycated Hemoglobin (4.6-6.2) % Estim Average Glucose (70-100) Calcium (8.5-10.3) mg/dL Magnesium (1.7-2.8) mg/dL Total Bilirubin (0.2-1.0) mg/dL AST (10-42) IU/L ALT (10-60) IU/L Alkaline Phosphatase (42-121) IU/L B-Natriuretic Peptide 130 H (5-100) pg/mL Total Protein (6.7-8.2) g/dL Albumin (3.2-5.5) g/dL Globulin (2.1-4.2) g/dL Albumin/Globulin Ratio (1.0-2.2) TSH (0.34-5.60) uIU/mL Urine Opiates Screen (NEGATIVE) Ur Oxycodone Screen (NEGATIVE) Urine Methadone Screen (NEGATIVE) Ur Propoxyphene Screen (NEGATIVE) Ur Barbiturates Screen (NEGATIVE) Ur Tricyclics Screen (NEGATIVE) Ur Phencyclidine Scrn (NEGATIVE) Ur Amphetamine Screen (NEGATIVE) U Methamphetamines Scrn (NEGATIVE) U Benzodiazepines Scrn (NEGATIVE) Urine Cocaine Screen (NEGATIVE) U Cannabinoids Screen (NEGATIVE) C. difficile Tox B Gene (NEGATIVE) ABX Reporting Has patient been on IV antibiotics over the past 48 hours?: Yes Sepsis Event Note (H) - Evaluation Current Stage of Sepsis: Sepsis Possible source of Sepsis: positive: Genitourinary - Sepsis Criteria Sepsis Criteria: Recorded Temperature greater than 38.3C or Less than 36C, Recorded Heart Rate greater than 90 bpm, Respiratory: Increasing oxygen requirements, WBC count greater than 12,000 or less than 4000, ROSTER CLERK: altered consciousness (unrelated to primary neuro pathology) Assessment/Plan - Problem List (1) Altered mental status Impression: 4/3 resolved pt is alert but lethargic, she could not answer any questions. pt has hx of acute on chronic bladder infection in UA analysis, pt present fever at ER, elevated WBC. pt's on going infection with sepsis may contribute to her AMS. CT of head is unremarkable. treat with Meropenem for underline UTI and bladder infection check C.diff for diarrhea IVF for NS for her diarrhea and fluid loss Neuro check (2) Sepsis Conclusion/Plan: 4/3 stable, BP is stable, no more fever, and WBC is down followup blood culture continue antibiotics followup UA culture and sensitivity study pt present elevated WBC, fever, AMS, and tachycardia, UTI is the resource of her infection now. pt's BP is stable now. blood culture, followup treat with antibiotics for UTI IVF of NS tele and vital monitor closely (3) UTI (urinary tract infection) Conclusion/Plan: pt had chronic indwell catherization of Blanco, and recurrent bladder infection with ESBL possible colorization for multiple admission. today UA analysis indicate infection continue UA culture and sensitivity study treat with Meropenem IVF of NS Qualifiers: Qualified Code(s): N30.00 - Acute cystitis without hematuria (4) Diarrhea with C.diff positive Conclusion/Plan: 4/3 pt stool test for C.Diff positive start PO vancomycin IVF of NS for fluid loss in diarrhea pt has diarrhea at home. we will do C.Diff study, and isolation for C.diff until proved IVF of NS for fluid loss daily vital and lab monitor (5) Diabetes mellitus type 2 in obese Conclusion/Plan: pt took insulin at home. will resume home insulin slide scale for insulin, ACHS and hypoglycemia (3) UTI (urinary tract infection) Qualifiers: Qualified Code(s): N30.00 - Acute cystitis without hematuria
[2019-01-01] MEDS: SACCHAROMYCES BOULARDII 250 MG CAPSULE PO SCH (17:08)
[2019-01-01] MEDS: RIVAROXABAN 15 MG TABLET PO SCH (17:09)
[2019-01-01] MEDS: HYDROcod/ACETAM 5/325 MG TABLET PO PRN (22:09)
[2019-01-01] MEDS: ATORVASTATIN 40 MG TABLET PO SCH (22:09)
[2019-01-01] MEDS: INSULIN 70/30 HUMAN 100 UNIT/1 ML 10 ML MDV SUBQ SCH (22:11)
[2019-01-01] MEDS: ZINC OXIDE 20% OINT 28.35 GM TUBE TOP PRN (22:11)
[2019-01-02] MEDS: SODIUM CHLORIDE FLUSH 0.9% 10 ML SYRINGE IVP SCH ×3 (01:29→16:15)
[2019-01-02] MEDS: SODIUM CHLORIDE 0.9% 1,000 ML IV SCH ×3 (03:41→16:12)
[2019-01-02 05:55] LABS: BASOPHILS # (AUTO) 0.1 10^3/uL (0.0-0.1); BASOPHILS % (AUTO) 0.8 %; EOSINOPHILS # (AUTO) 0.2 10^3/uL (0.0-0.7); EOSINOPHILS % (AUTO) 1.4 %; HGB - HEMOGLOBIN 9.4 g/dL (12.0-16.0); LYMPHOCYTES # (AUTO) 1.7 10^3/uL (1.5-3.5); LYMPHOCYTES % (AUTO) 15.9 %; MEAN CORPUSCULAR HEMOGLOBIN 26.7 pg (27.0-31.0); MEAN CORPUSCULAR HGB CONC 30.5 g/dL (32.0-36.0); MEAN CORPUSCULAR VOLUME 87.4 fL (81.0-99.0); MEAN PLATELET VOLUME 8.4 fL (7.9-10.8); MONOCYTES % (AUTO) 9.5 %; NEUTROPHILS # (AUTO) 7.5 10^3/uL (1.5-6.6); NEUTROPHILS % (AUTO) 72.4 %; PLT - PLATELET COUNT 236 10^3/uL (130-450); RED BLOOD COUNT 3.54 10^6/uL (4.20-5.40); RED CELL DISTRIBUTION WIDTH 18.6 % (12.0-15.0); WHITE BLOOD COUNT 10.4 x10^3/uL (4.8-10.8)
[2019-01-02 06:30] LABS: ALBUMIN 3.2 g/dL (3.2-5.5); ALBUMIN/GLOBULIN RATIO 0.9 (1.0-2.2); ALKALINE PHOSPHATASE 62 IU/L (42-121); ALT ALANINE AMINOTRANSFERASE < 10 IU/L (10-60); AST ASPARTATE AMINOTRANSFERASE 14 IU/L (10-42); BILIRUBIN,TOTAL 0.4 mg/dL (0.2-1.0); BUN - BLOOD UREA NITROGEN 37 mg/dL (6-20); CALCIUM 8.5 mg/dL (8.5-10.3); CARBON DIOXIDE - CO2 27 mmol/L (21-32); CHLORIDE 105 mmol/L (101-111); CREATININE 1.5 mg/dL (0.4-1.0); GFR - MDRD 34 (>89); GLUCOSE 160 mg/dL (70-100); SODIUM 140 mmol/L (135-145); TOTAL PROTEIN 6.7 g/dL (6.7-8.2)
[2019-01-02] MEDS: LEVOTHYROXINE 75 MCG TABLET PO SCH (06:32)
[2019-01-02] MEDS: SACCHAROMYCES BOULARDII 250 MG CAPSULE PO SCH ×2 (07:54→16:11)
[2019-01-02] MEDS: INSULIN ASPART 300 UNIT/3 ML PEN SUBQ SCH ×4 (07:54→21:22)
[2019-01-02] MEDS: LISINOPRIL 5 MG TABLET PO SCH (08:01)
[2019-01-02] MEDS: SPIRONOLACTONE 25 MG TABLET PO SCH (08:02)
[2019-01-02] MEDS: FAMOTIDINE 20 MG TABLET PO SCH ×2 (08:02→21:21)
[2019-01-02] MEDS: METOPROLOL SUCCINATE 50 MG TABLET PO SCH (08:02)
[2019-01-02] MEDS: ISOSORBIDE MONONITRATE ER 30 MG TABLET PO SCH (08:03)
[2019-01-02] MEDS: MEROPENEM 1 GM in SODIUM CHLORIDE 0.9% MINIBAG 100 ML IV SCH ×2 (08:03→21:21)
[2019-01-02] MEDS: POLYETHYLENE GLYCOL 3350 17 GM PACKET PO SCH (08:03)
[2019-01-02] MEDS: VANCOMYCIN 125 MG CAPSULE PO SCH ×4 (08:03→21:21)
[2019-01-02] MEDS ORDERED: SODIUM CHLORIDE 0.9% 1,000 ML IV SCH (08:06)
--- NOTE | 2019-01-02 12:54 | PROVIDER PROGRESS NOTE ---
Subjective - Prog Note Date Prog Note Date: 01/02/19 - Subjective Pt reports feeling: Improved Subjective: pt continue improved. pt is alert and oriented plus 3. pt report she is feeling much better. she report she did not diarrhea on last night. she denies fever, chill, chest pain, shortness of breath. Current Medications - Current Medications Current Medications: Active Medications Acetaminophen (Tylenol) 650 mg PO Q4HR PRN PRN Reason: Pain 1 to 4 Hydrocodone Bitart/Acetaminophen ([place] 5/325) 1 tab PO TID PRN PRN Reason: PAIN Last Admin: 01/01/19 22:09 Dose: 1 tab Atorvastatin Calcium (Lipitor) 40 mg PO QPM [facility] Last Admin: 01/01/19 22:09 Dose: 40 mg Bisacodyl (Dulcolax) 5 mg PO BID PRN PRN Reason: Constipation Famotidine (Pepcid) 10 mg PO BID [facility] Last Admin: 01/02/19 08:02 Dose: 10 mg Hydralazine HCl (Apresoline Inj) 10 mg IVP QID PRN PRN Reason: Hypertensive Emergency Meropenem 1 gm/ Sodium (Chloride) 100 mls @ 200 mls/hr IV BID [facility] Last Infusion: 01/02/19 08:54 Dose: Infused Acetaminophen (Ofirmev) 100 mls @ 400 mls/hr IV Q6HR PRN PRN Reason: PAIN Sodium Chloride (Normal Saline 0.9%) 1,000 mls @ 75 mls/hr IV .[id number] [facility] Stop: 01/03/19 12:06 Last Admin: 01/02/19 09:37 Dose: 75 mls/hr Insulin Aspart (Novolog) 2 - 10 unit SUBQ 0800,1200,1700,2100 [facility]; Protocol Last Admin: 01/02/19 11:53 Dose: 4 unit Insulin Human Isoph/Insulin Regular (Novolin) 10 unit SUBQ QPM [facility] Last Admin: 01/01/19 22:11 Dose: 10 unit Isosorbide Mononitrate (Imdur) 30 mg PO DAILY [facility] Last Admin: 01/02/19 08:03 Dose: 30 mg Levothyroxine Sodium (Synthroid) 150 mcg PO QDAC [facility] Last Admin: 01/02/19 06:32 Dose: 150 mcg Lisinopril (Zestril) 2.5 mg PO DAILY [facility] Last Admin: 01/02/19 08:01 Dose: 2.5 mg Metoprolol Succinate (Toprol Xl) 50 mg PO DAILY [facility] Last Admin: 01/02/19 08:02 Dose: 50 mg Multi-Ingredient Ointment (Zinc Oxide) 1 applic TOP PRN PRN PRN Reason: Skin Care Stop: 01/07/19 20:26 Last Admin: 01/01/19 22:11 Dose: 1 applic Ondansetron HCl (Zofran Inj) 4 mg IVP Q6HR PRN PRN Reason: Nausea / Vomiting Polyethylene Glycol (Miralax) 17 gm PO DAILY [facility] Last Admin: 01/02/19 08:03 Dose: Not Given Rivaroxaban (Xarelto) 15 mg PO QDDINNER [facility] Last Admin: 01/01/19 17:09 Dose: 15 mg Saccharomyces Boulardii (Florastor) 500 mg PO BIDWM [facility] Last Admin: 01/02/19 07:54 Dose: 500 mg Sodium Chloride (Normal Saline Flush 0.9%) 10 ml IVP PRN PRN PRN Reason: NEEDED PER PROVIDER ORDERS Sodium Chloride (Normal Saline Flush 0.9%) 10 ml IVP 0100,0900,1700 [facility] Last Admin: 01/02/19 08:04 Dose: Not Given Spironolactone (Aldactone) 25 mg PO DAILY [facility] Last Admin: 01/02/19 08:02 Dose: 25 mg Vancomycin HCl (Vancocin) 125 mg PO QID [facility] Last Admin: 01/02/19 08:03 Dose: 125 mg Atorvastatin Calcium 40 mg PO DAILY 11/13/17 HYDROcod/ACETAM 5/325 [[place] 5/325] 1 tab PO TID PRN 11/13/17 Insulin NPH Hum/Reg Insulin Hm [Novolin 70-30 100 Unit/ml Vial] 16 units SUBQ 0730 11/13/17 Omeprazole 20 mg PO DAILY 08/31/18 Furosemide 20 mg PO BID 10/03/18 Bisacodyl [Dulcolax] 5 mg PO BID PRN 11/05/18 Rivaroxaban [Xarelto] 15 mg PO DAILY 11/05/18 Objective - Vital Signs/Intake & Output Reviewed Vital Signs: Yes Vital Signs: Vital Signs x48h Temp Pulse Resp BP Pulse Ox 01/02/19 08:00 37.0 C 71 18 140/64 H 95 01/02/19 05:25 36.9 C 77 18 135/61 H 94 Intake & Output: Intake & Output 12/30/18 12/31/18 01/01/19 01/02/19 23:59 23:59 23:59 23:59 Intake Total 1300 3920.970 2343.667 Output Total 350 1500 750 Balance 950 2420.970 1593.667 - Objective General Appearance: positive: No acute distress, Alert. negative: Lethargic Eyes Bilateral: positive: Normal inspection, PERRL, No lid inflammation, Conjunctivae nml ENT: positive: ENT inspection nml, Pharynx nml, No signs of dehydration. negative: Purulent nasal drainage, Pharyngeal erythema, Oral lesions Neck: positive: Nml inspection, Thyroid nml, No JVD, Trachea midline. negative: Thyromegaly, Lymphadenopathy (R), Lymphadenopathy (L), Stiff neck, Swelling/bruising, Tracheal deviation Respiratory: positive: Chest non-tender, No respiratory distress, Breath sounds nml. negative: Wheezes, Rales, Rhonchi Cardiovascular: positive: Regular rate & rhythm, No murmur, No gallop. negative: Irregularly irregular, Extrasystoles, Tachycardia, Bradycardia, JVD present, Systolic murmur, Diastolic murmur Peripheral Pulses: 2+ Radial (R), 2+ Radial (L), 2+ Dorsalis pedis (R), 2+ Dorsalis pedis (L) Abdomen: positive: Non-tender, No organomegaly, Nml bowel sounds, No distention. negative: Tenderness, Guarding, Rebound Back: positive: Nml inspection. negative: CVA tenderness (R), CVA tenderness (L) Skin: positive: Color nml, No rash, Warm, Dry. negative: Cyanosis, Diaphoresis, Pallor Extremities: positive: Non-tender, Nml appearance. negative: Calf tenderness, Joint swelling, Edgar's sign/cords Neurologic/Psychiatric: positive: Oriented x3, Sensation nml, Mood/affect nml. negative: Weakness, Sensory loss, Facial droop, Slurred/abnml speech, Depressed mood/affect - Lab Results Fish Bones: 01/02/19 05:30 01/02/19 06:00 Other Labs: Lab Results x24hrs 01/02/19 01/02/19 Range/Units 06:00 05:30 WBC 10.4 (4.8-10.8) x10^3/uL RBC 3.54 L (4.20-5.40) 10^6/uL Hgb 9.4 L (12.0-16.0) g/dL Hct 30.9 L (37.0-47.0) % MCV 87.4 (81.0-99.0) fL MCH 26.7 L (27.0-31.0) pg MCHC 30.5 L (32.0-36.0) g/dL RDW 18.6 H (12.0-15.0) % Plt Count 236 (130-450) 10^3/uL MPV 8.4 (7.9-10.8) fL Neut # (Auto) 7.5 H (1.5-6.6) 10^3/uL Lymph # (Auto) 1.7 (1.5-3.5) 10^3/uL [place] # (Auto) 1.0 (0.0-1.0) 10^3/uL Eos # (Auto) 0.2 (0.0-0.7) 10^3/uL Baso # (Auto) 0.1 (0.0-0.1) 10^3/uL Absolute Nucleated RBC 0.00 x10^3/uL Nucleated RBC % 0.0 /100WBC Sodium 140 (135-145) mmol/L Potassium 3.8 (3.5-5.0) mmol/L Chloride 105 (101-111) mmol/L Carbon Dioxide 27 (21-32) mmol/L Anion Gap 8.0 (6-13) BUN 37 H (6-20) mg/dL Creatinine 1.5 H (0.4-1.0) mg/dL Estimated GFR (MDRD) 34 L (>89) Glucose 160 H (70-100) mg/dL Calcium 8.5 (8.5-10.3) mg/dL Total Bilirubin 0.4 (0.2-1.0) mg/dL AST 14 (10-42) IU/L ALT < 10 L (10-60) IU/L Alkaline Phosphatase 62 (42-121) IU/L Total Protein 6.7 (6.7-8.2) g/dL Albumin 3.2 (3.2-5.5) g/dL Globulin 3.5 (2.1-4.2) g/dL Albumin/Globulin Ratio 0.9 L (1.0-2.2) ABX Reporting Has patient been on IV antibiotics over the past 48 hours?: Yes Sepsis Event Note (H) - Evaluation Current Stage of Sepsis: Sepsis Possible source of Sepsis: positive: Genitourinary - Sepsis Criteria Sepsis Criteria: Recorded Temperature greater than 38.3C or Less than 36C, Recorded Heart Rate greater than 90 bpm, Respiratory: Increasing oxygen requirements, WBC count greater than 12,000 or less than 4000, PRODUCTION COST ESTIMATOR: altered consciousness (unrelated to primary neuro pathology) Assessment/Plan - Problem List (1) Altered mental status Impression: 01/02 resolved pt is alert but lethargic, she could not answer any questions. pt has hx of acute on chronic bladder infection in UA analysis, pt present fever at ER, elevated WBC. pt's on going infection with sepsis may contribute to her AMS. CT of head is unremarkable. treat with Meropenem for underline UTI and bladder infection check C.diff for diarrhea IVF for NS for her diarrhea and fluid loss Neuro check (2) Sepsis Conclusion/Plan: 01/02 WBC is normal today continue antibiotics of Meropenem, PO of vancomycin for underline of infection. 01/01 stable, BP is stable, no more fever, and WBC is down followup blood culture continue antibiotics followup UA culture and sensitivity study pt present elevated WBC, fever, AMS, and tachycardia, UTI is the resource of her infection now. pt's BP is stable now. blood culture, followup treat with antibiotics for UTI IVF of NS tele and vital monitor closely (3) UTI (urinary tract infection) Conclusion/Plan: 01/02 UA culture and sensitivity reveals positive for ESBL, and positive for Meropenem pt had chronic indwell catherization of [place], and recurrent bladder infection with ESBL possible colorization for multiple admission. today UA analysis indicate infection continue UA culture and sensitivity study treat with Meropenem IVF of NS (4) Diarrhea with C.diff positive Conclusion/Plan: 01/02 diarrhea stop on last night continue PO vancomycin 01/01 pt stool test for C.Diff positive start PO vancomycin IVF of NS for fluid loss in diarrhea pt has diarrhea at home. we will do C.Diff study, and isolation for C.diff until proved IVF of NS for fluid loss daily vital and lab monitor (5) Diabetes mellitus type 2 in obese Conclusion/Plan: stable, continue slide scale pt took insulin at home. will resume home insulin slide scale for insulin, ACHS and hypoglycemia (3) UTI (urinary tract infection) Qualifiers: Qualified Code(s): N30.00 - Acute cystitis without hematuria
[2019-01-02] MEDS: RIVAROXABAN 15 MG TABLET PO SCH (16:11)
[2019-01-02] MEDS: ATORVASTATIN 40 MG TABLET PO SCH (21:21)
[2019-01-02] MEDS: INSULIN 70/30 HUMAN 100 UNIT/1 ML 10 ML MDV SUBQ SCH (21:22)
[2019-01-02] MEDS: HYDROcod/ACETAM 5/325 MG TABLET PO PRN (21:42)
[2019-01-03] MEDS: SODIUM CHLORIDE FLUSH 0.9% 10 ML SYRINGE IVP SCH ×4 (00:05→23:56)
[2019-01-03 05:51] LABS: BASOPHILS # (AUTO) 0.1 10^3/uL (0.0-0.1); EOSINOPHILS # (AUTO) 0.2 10^3/uL (0.0-0.7); EOSINOPHILS % (AUTO) 2.3 %; HGB - HEMOGLOBIN 9.1 g/dL (12.0-16.0); LYMPHOCYTES # (AUTO) 1.6 10^3/uL (1.5-3.5); LYMPHOCYTES % (AUTO) 24.1 %; MEAN CORPUSCULAR HEMOGLOBIN 26.4 pg (27.0-31.0); MEAN CORPUSCULAR HGB CONC 28.7 g/dL (32.0-36.0); MEAN CORPUSCULAR VOLUME 91.9 fL (81.0-99.0); MEAN PLATELET VOLUME 8.3 fL (7.9-10.8); MONOCYTES # (AUTO) 0.8 10^3/uL (0.0-1.0); MONOCYTES % (AUTO) 11.3 %; NEUTROPHILS # (AUTO) 4.2 10^3/uL (1.5-6.6); NEUTROPHILS % (AUTO) 61.3 %; PLT - PLATELET COUNT 219 10^3/uL (130-450); RED BLOOD COUNT 3.44 10^6/uL (4.20-5.40); RED CELL DISTRIBUTION WIDTH 18.7 % (12.0-15.0); WHITE BLOOD COUNT 6.8 x10^3/uL (4.8-10.8)
[2019-01-03 05:59] LABS: ALBUMIN 2.9 g/dL (3.2-5.5); ALKALINE PHOSPHATASE 60 IU/L (42-121); ALT ALANINE AMINOTRANSFERASE < 10 IU/L (10-60); AST ASPARTATE AMINOTRANSFERASE 14 IU/L (10-42); BILIRUBIN,TOTAL 0.4 mg/dL (0.2-1.0); BUN - BLOOD UREA NITROGEN 30 mg/dL (6-20); CALCIUM 8.2 mg/dL (8.5-10.3); CARBON DIOXIDE - CO2 26 mmol/L (21-32); CHLORIDE 108 mmol/L (101-111); CREATININE 1.3 mg/dL (0.4-1.0); GFR - MDRD 40 (>89); GLUCOSE 132 mg/dL (70-100); SODIUM 142 mmol/L (135-145); TOTAL PROTEIN 5.9 g/dL (6.7-8.2)
[2019-01-03 06:18] LABS: PLATELET ESTIMATE, MANUAL NORMAL (130-450,000) (NORMAL)
[2019-01-03] MEDS: LEVOTHYROXINE 75 MCG TABLET PO SCH (06:20)
[2019-01-03] MEDS: INSULIN ASPART 300 UNIT/3 ML PEN SUBQ SCH ×4 (07:53→21:01)
[2019-01-03] MEDS: LISINOPRIL 5 MG TABLET PO SCH (07:54)
[2019-01-03] MEDS: SACCHAROMYCES BOULARDII 250 MG CAPSULE PO SCH ×2 (07:54→17:33)
[2019-01-03] MEDS: FAMOTIDINE 20 MG TABLET PO SCH ×2 (07:54→20:59)
[2019-01-03] MEDS: ISOSORBIDE MONONITRATE ER 30 MG TABLET PO SCH (07:54)
[2019-01-03] MEDS: METOPROLOL SUCCINATE 50 MG TABLET PO SCH (07:54)
[2019-01-03] MEDS: MEROPENEM 1 GM in SODIUM CHLORIDE 0.9% MINIBAG 100 ML IV SCH ×2 (07:55→21:01)
[2019-01-03] MEDS: SPIRONOLACTONE 25 MG TABLET PO SCH (07:55)
[2019-01-03] MEDS: POLYETHYLENE GLYCOL 3350 17 GM PACKET PO SCH (07:55)
[2019-01-03] MEDS: VANCOMYCIN 125 MG CAPSULE PO SCH ×4 (09:27→20:59)
--- NOTE | 2019-01-03 11:59 | PROVIDER PROGRESS NOTE ---
Subjective - Prog Note Date Prog Note Date: 01/03/19 - Subjective Pt reports feeling: Improved Subjective: pt state she still has one watery diarrhea at the morning. Pt will have PICC today, and plan her to have one week IV antibiotic for her Bladder ESBL infection. Pt report she had indwelling cath for about one year. Because of her urinary incontinence, she continued to have skin infection and sore in your groin area. Her hydraulic press operator in [facility] [place] put the indwelling cath for her. She state she is rather to have indwelling cath than consisting skin infection "it is horrible before." Current Medications - Current Medications Current Medications: Active Medications Acetaminophen (Tylenol) 650 mg PO Q4HR PRN PRN Reason: Pain 1 to 4 Hydrocodone Bitart/Acetaminophen ([place] 5/325) 1 tab PO TID PRN PRN Reason: PAIN Last Admin: 01/02/19 21:42 Dose: 1 tab Atorvastatin Calcium (Lipitor) 40 mg PO QPM [facility] Last Admin: 01/02/19 21:21 Dose: 40 mg Bisacodyl (Dulcolax) 5 mg PO BID PRN PRN Reason: Constipation Famotidine (Pepcid) 10 mg PO BID [facility] Last Admin: 01/03/19 07:54 Dose: 10 mg Hydralazine HCl (Apresoline Inj) 10 mg IVP QID PRN PRN Reason: Hypertensive Emergency Meropenem 1 gm/ Sodium (Chloride) 100 mls @ 200 mls/hr IV BID [facility] Last Infusion: 01/03/19 09:00 Dose: Infused Acetaminophen (Ofirmev) 100 mls @ 400 mls/hr IV Q6HR PRN PRN Reason: PAIN Insulin Aspart (Novolog) 2 - 10 unit SUBQ 0800,1200,1700,2100 [facility]; Protocol Last Admin: 01/03/19 11:52 Dose: 4 unit Insulin Human Isoph/Insulin Regular (Novolin) 10 unit SUBQ QPM [facility] Last Admin: 01/02/19 21:22 Dose: 10 unit Isosorbide Mononitrate (Imdur) 30 mg PO DAILY [facility] Last Admin: 01/03/19 07:54 Dose: 30 mg Levothyroxine Sodium (Synthroid) 150 mcg PO QDAC [facility] Last Admin: 01/03/19 06:20 Dose: 150 mcg Lisinopril (Zestril) 2.5 mg PO DAILY [facility] Last Admin: 01/03/19 07:54 Dose: 2.5 mg Metoprolol Succinate (Toprol Xl) 50 mg PO DAILY [facility] Last Admin: 01/03/19 07:54 Dose: 50 mg Multi-Ingredient Ointment (Zinc Oxide) 1 applic TOP PRN PRN PRN Reason: Skin Care Stop: 01/07/19 20:26 Last Admin: 01/01/19 22:11 Dose: 1 applic Ondansetron HCl (Zofran Inj) 4 mg IVP Q6HR PRN PRN Reason: Nausea / Vomiting Polyethylene Glycol (Miralax) 17 gm PO DAILY [facility] Last Admin: 01/03/19 07:55 Dose: Not Given Rivaroxaban (Xarelto) 15 mg PO QDDINNER [facility] Last Admin: 01/02/19 16:11 Dose: 15 mg Saccharomyces Boulardii (Florastor) 500 mg PO BIDWM [facility] Last Admin: 01/03/19 07:54 Dose: 500 mg Sodium Chloride (Normal Saline Flush 0.9%) 10 ml IVP PRN PRN PRN Reason: NEEDED PER PROVIDER ORDERS Sodium Chloride (Normal Saline Flush 0.9%) 10 ml IVP 0100,0900,1700 [facility] Last Admin: 01/03/19 07:57 Dose: 10 ml Spironolactone (Aldactone) 25 mg PO DAILY [facility] Last Admin: 01/03/19 07:55 Dose: 25 mg Vancomycin HCl (Vancocin) 125 mg PO QID [facility] Last Admin: 01/03/19 09:27 Dose: 125 mg Atorvastatin Calcium 40 mg PO DAILY 11/13/17 HYDROcod/ACETAM 5/325 [[place] 5/325] 1 tab PO TID PRN 11/13/17 Insulin NPH Hum/Reg Insulin Hm [Novolin 70-30 100 Unit/ml Vial] 16 units SUBQ 0730 11/13/17 Omeprazole 20 mg PO DAILY 08/31/18 Furosemide 20 mg PO BID 10/03/18 Bisacodyl [Dulcolax] 5 mg PO BID PRN 11/05/18 Rivaroxaban [Xarelto] 15 mg PO DAILY 11/05/18 Objective - Vital Signs/Intake & Output Reviewed Vital Signs: Yes Vital Signs: Vital Signs x48h Temp Pulse Resp BP Pulse Ox 01/03/19 07:39 36.5 C 74 18 130/54 L 94 Intake & Output: Intake & Output 12/31/18 01/01/19 01/02/19 01/03/19 23:59 23:59 23:59 23:59 Intake Total 1300 3920.970 4668.667 1354.75 Output Total 350 1500 1900 700 Balance 950 2420.970 2768.667 654.75 - Objective General Appearance: positive: No acute distress, Alert. negative: Lethargic Eyes Bilateral: positive: Normal inspection, PERRL, No lid inflammation, Conjunctivae nml ENT: positive: ENT inspection nml, Pharynx nml, No signs of dehydration. negative: Purulent nasal drainage, Pharyngeal erythema, Oral lesions Neck: positive: Nml inspection, Thyroid nml, No JVD, Trachea midline. negative: Thyromegaly, Lymphadenopathy (R), Lymphadenopathy (L), Stiff neck, S welling/bruising, Tracheal deviation Respiratory: positive: Chest non-tender, No respiratory distress, Breath sounds nml. negative: Wheezes, Rales, Rhonchi Cardiovascular: positive: Regular rate & rhythm, No murmur, No gallop, Irregularly irregular. negative: Extrasystoles, Tachycardia, JVD present, Systolic murmur, Diastolic murmur Peripheral Pulses: 2+ Radial (R), 2+ Radial (L), 2+ Dorsalis pedis (R), 2+ Dorsalis pedis (L) Abdomen: positive: Non-tender, Nml bowel sounds. negative: Tenderness, Guarding, Rebound Back: positive: Nml inspection. negative: CVA tenderness (R), CVA tenderness (L) Skin: positive: Color nml, Warm, Dry. negative: Cyanosis, Diaphoresis, Pallor Extremities: positive: Non-tender. negative: Calf tenderness, Joint swelling, Edgar's sign/cords Neurologic/Psychiatric: positive: Oriented x3, Sensation nml, Mood/affect nml. negative: Weakness, Sensory loss, Facial droop, Slurred/abnml speech, Depressed mood/affect - Lab Results Fish Bones: 01/03/19 05:35 01/03/19 05:35 Other Labs: Lab Results x24hrs 01/03/19 01/03/19 Range/Units 05:35 05:35 WBC 6.8 (4.8-10.8) x10^3/uL RBC 3.44 L (4.20-5.40) 10^6/uL Hgb 9.1 L (12.0-16.0) g/dL Hct 31.7 L (37.0-47.0) % MCV 91.9 (81.0-99.0) fL MCH 26.4 L (27.0-31.0) pg MCHC 28.7 L (32.0-36.0) g/dL RDW 18.7 H (12.0-15.0) % Plt Count 219 (130-450) 10^3/uL MPV 8.3 (7.9-10.8) fL Neut # (Auto) 4.2 (1.5-6.6) 10^3/uL Lymph # (Auto) 1.6 (1.5-3.5) 10^3/uL [place] # (Auto) 0.8 (0.0-1.0) 10^3/uL Eos # (Auto) 0.2 (0.0-0.7) 10^3/uL Baso # (Auto) 0.1 (0.0-0.1) 10^3/uL Absolute Nucleated RBC 0.01 x10^3/uL Nucleated RBC % 0.1 /100WBC Manual Slide Review Indicated Platelet Estimate NORMAL (130-450,000) (NORMAL) RBC Morph Micro Appear 1+ OVALOCYTES (NORMAL) Sodium 142 (135-145) mmol/L Potassium 3.7 (3.5-5.0) mmol/L Chloride 108 (101-111) mmol/L Carbon Dioxide 26 (21-32) mmol/L Anion Gap 8.0 (6-13) BUN 30 H (6-20) mg/dL Creatinine 1.3 H (0.4-1.0) mg/dL Estimated GFR (MDRD) 40 L (>89) Glucose 132 H (70-100) mg/dL Calcium 8.2 L (8.5-10.3) mg/dL Total Bilirubin 0.4 (0.2-1.0) mg/dL AST 14 (10-42) IU/L ALT < 10 L (10-60) IU/L Alkaline Phosphatase 60 (42-121) IU/L Total Protein 5.9 L (6.7-8.2) g/dL Albumin 2.9 L (3.2-5.5) g/dL Globulin 3.0 (2.1-4.2) g/dL Albumin/Globulin Ratio 1.0 (1.0-2.2) ABX Reporting Has patient been on IV antibiotics over the past 48 hours?: Yes Sepsis Event Note (H) - Evaluation Current Stage of Sepsis: Sepsis Possible source of Sepsis: positive: Genitourinary - Sepsis Criteria Sepsis Criteria: Recorded Temperature greater than 38.3C or Less than 36C, Recorded Heart Rate greater than 90 bpm, Respiratory: Increasing oxygen requirements, WBC count greater than 12,000 or less than 4000, DENTAL INSTRUMENT MAKER: altered consciousness (unrelated to primary neuro pathology) Assessment/Plan - Problem List (1) Altered mental status Impression: / pt is alert and oriented / resolved pt is alert but lethargic, she could not answer any questions. pt has hx of acute on chronic bladder infection in UA analysis, pt present fever at ER, elevated WBC. pt's on going infection with sepsis may contribute to her AMS. CT of head is unremarkable. treat with Meropenem for underline UTI and bladder infection check C.diff for diarrhea IVF for NS for her diarrhea and fluid loss Neuro check (2) Sepsis Conclusion/Plan: 01/03 no fever, chill. WBC is normal. blood culture is negative continue antibiotics for bladder infection 01/02 WBC is normal today continue antibiotics of Meropenem, PO of vancomycin for underline of infection. 01/01 stable, BP is stable, no more fever, and WBC is down followup blood culture continue antibiotics followup UA culture and sensitivity study pt present elevated WBC, fever, AMS, and tachycardia, UTI is the resource of her infection now. pt's BP is stable now. blood culture, followup treat with antibiotics for UTI IVF of NS tele and vital monitor closely (3) UTI (urinary tract infection) Conclusion/Plan: / pt will have PICC line today, for another week for IV of antibiotics, pt prefer to have home infusion / UA culture and sensitivity reveals positive for ESBL, and positive for Meropenem pt had chronic indwell catherization of [place], and recurrent bladder infection with ESBL possible colorization for multiple admission. today UA analysis indicate infection continue UA culture and sensitivity study treat with Meropenem IVF of NS (4) Diarrhea with C.diff positive Conclusion/Plan: 01/03 pt still have one watery diarrhea, continue PO vancomycin, start with IVF as needed lab and vital monitor 01/02 diarrhea stop on last night continue PO vancomycin 01/01 pt stool test for C.Diff positive start PO vancomycin IVF of NS for fluid loss in diarrhea pt has diarrhea at home. we will do C.Diff study, and isolation for C.diff until proved IVF of NS for fluid loss daily vital and lab monitor (5) Diabetes mellitus type 2 in obese Conclusion/Plan: stable, continue slide scale pt took insulin at home. will resume home insulin slide scale for insulin, ACHS and hypoglycemia (6) indwelling catheter presenting admission pt report she had catheter for one yrs, from her hydraulic press operator to put it for her, because of her urinary incontinence, her skin infection and score in her groin area. pt like to continue to have indwelling catheter. educate and consult with pt the benefits and risk of indwelling catheter. continue catheter care. (3) UTI (urinary tract infection) Qualifiers: Qualified Code(s): N30.00 - Acute cystitis without hematuria
--- NOTE | 2019-01-03 16:17 | XRAY Report ---
Reason: picc line placement Procedure Date: 01/03/2019 Accession Number: [id number] / [id number] Procedure: XR - Chest for Line Placement CPT Code: FULL RESULT: EXAM: CHEST RADIOGRAPHY EXAM DATE: 01/03/2019 03:57 PM. CLINICAL HISTORY: Picc line placement. COMPARISON: CHEST 1 VIEW 12/31/2018 2:34 PM. TECHNIQUE: 1 view. FINDINGS: Lungs/Pleura: Mild interstitial prominence. No definite localized infiltrate, consolidation, effusion, or pneumothorax. Mediastinum: Mild cardiomegaly. Diffuse vascular fullness. Other: The right PIC catheter tip is difficult to visualize beyond the subclavian level. IMPRESSION: Right PICC tip not clearly seen beyond right subclavian. [facility]
--- NOTE | 2019-01-03 16:41 | ANESTHESIA PROCEDURE NOTE ---
Anesth Central Line Template - Central Line Central Line Preparation: Consent Obtained Central line type: Single lumen Central line catheter tip site resides: Subclavian vein Central line aftercare: Placement confirmed, No complications, Bundle checklist complete (Unable to thread beyond subclavian, left as midline 7cm exposed, trimmed at 40 cm 4 Fr single lumen catheter. US use for access, patient in Afib so had to use portable xray images to comfirm placement. Difficult due to patient anatomy. Hosptialists Ruby Yo made aware is midline and states that is sufficient for antibiotic therapy.), Pt tolerated well
--- NOTE | 2019-01-03 17:21 | XRAY Report ---
Reason: PICC Procedure Date: 01/03/2019 Accession Number: [id number] / [id number] Procedure: XR - Chest for Line Placement CPT Code: FULL RESULT: EXAM: CHEST RADIOGRAPHY EXAM DATE: 01/03/2019 03:40 PM. CLINICAL HISTORY: PICC. COMPARISON: CHEST FOR LINE PLACEMENT 01/03/2019 3:21 PM. TECHNIQUE: 1 view. FINDINGS: Lungs/Pleura: Mild unchanged pulmonary edema. No focal opacities evident. No pleural effusion. No pneumothorax. Mediastinum: Right-sided PICC line is seen ascending superiorly into the right jugular vein. There is moderate stable cardiomegaly. Other: None. IMPRESSION: Right-sided PICC line is seen ascending superiorly into the right jugular vein. Moderate stable cardiomegaly and mild pulmonary edema. [facility] The call report notification system was initiated by Dr. Marcelina Hamilton at 05:19 PM on 01/03/2019.
--- NOTE | 2019-01-03 17:23 | XRAY Report ---
Reason: Midline catheter Procedure Date: 01/03/2019 Accession Number: [id number] / [id number] Procedure: XR - Chest for Line Placement CPT Code: FULL RESULT: EXAM: CHEST RADIOGRAPHY EXAM DATE: 01/03/2019 03:40 PM. CLINICAL HISTORY: Midline catheter. COMPARISON: CHEST FOR LINE PLACEMENT 01/03/2019 3:33 PM. TECHNIQUE: 1 view. FINDINGS: Lungs/Pleura: Mild pulmonary edema. No focal opacities evident. No pleural effusion. No pneumothorax. Mediastinum: Right-sided PICC line is now seen with its tip in the region of the right subclavian vein. Moderate stable cardiomegaly and mild pulmonary edema. Other: None. IMPRESSION: Right PICC line is now seen with its tip in the region of the right subclavian vein. [facility]
--- NOTE | 2019-01-03 17:24 | XRAY Report ---
Reason: PICC Procedure Date: 01/03/2019 Accession Number: [id number] / [id number] Procedure: XR - Chest for Line Placement CPT Code: FULL RESULT: EXAM: CHEST RADIOGRAPHY EXAM DATE: 01/03/2019 05:08 PM. CLINICAL HISTORY: PICC. COMPARISON: CHEST FOR LINE PLACEMENT 01/03/2019 3:26 PM. TECHNIQUE: 1 view. FINDINGS: Lungs/Pleura: Stable mild pulmonary edema. No focal opacities evident. No pleural effusion. No pneumothorax. Mediastinum: Right PICC line is seen with its tip in the region of the axillary vein. Stable moderate cardiomegaly. L. Other: None. IMPRESSION: Right-sided PICC line is seen with its tip in the region of the axillary vein. [facility]
--- NOTE | 2019-01-03 17:26 | XRAY Report ---
Reason: PICC Procedure Date: 01/03/2019 Accession Number: [id number] / [id number] Procedure: XR - Chest for Line Placement CPT Code: FULL RESULT: EXAM: CHEST RADIOGRAPHY EXAM DATE: 01/03/2019 05:08 PM. CLINICAL HISTORY: PICC. COMPARISON: CHEST FOR LINE PLACEMENT 01/03/2019 3:30 PM. TECHNIQUE: 1 view. FINDINGS: Lungs/Pleura: Stable mild pulmonary edema. No focal opacities evident. No pleural effusion. No pneumothorax. Mediastinum: PICC line is seen in the right upper extremity, ending in the region of axilla. Stable moderate cardiomegaly Other: None. IMPRESSION: PICC line is seen in the right upper extremity, ending in the region of axilla/axillary vein. Stable mild pulmonary edema and moderate cardiomegaly. [facility]
[2019-01-03] MEDS: RIVAROXABAN 15 MG TABLET PO SCH (17:33)
[2019-01-03] MEDS: HYDROcod/ACETAM 5/325 MG TABLET PO PRN (20:59)
[2019-01-03] MEDS: ATORVASTATIN 40 MG TABLET PO SCH (21:00)
[2019-01-03] MEDS: INSULIN 70/30 HUMAN 100 UNIT/1 ML 10 ML MDV SUBQ SCH (21:00)
[2019-01-04] MEDS: LEVOTHYROXINE 75 MCG TABLET PO SCH (06:47)
[2019-01-04 06:48] LABS: ALBUMIN 2.9 g/dL (3.2-5.5); ALBUMIN/GLOBULIN RATIO 0.9 (1.0-2.2); ALKALINE PHOSPHATASE 58 IU/L (42-121); ALT ALANINE AMINOTRANSFERASE < 10 IU/L (10-60); AST ASPARTATE AMINOTRANSFERASE 12 IU/L (10-42); BILIRUBIN,TOTAL 0.4 mg/dL (0.2-1.0); BUN - BLOOD UREA NITROGEN 25 mg/dL (6-20); CALCIUM 8.4 mg/dL (8.5-10.3); CARBON DIOXIDE - CO2 29 mmol/L (21-32); CHLORIDE 107 mmol/L (101-111); CREATININE 1.5 mg/dL (0.4-1.0); GFR - MDRD 34 (>89); GLUCOSE 136 mg/dL (70-100); SODIUM 142 mmol/L (135-145); TOTAL PROTEIN 6.1 g/dL (6.7-8.2)
[2019-01-04 07:16] LABS: BASOPHILS # (AUTO) 0.1 10^3/uL (0.0-0.1); BASOPHILS % (AUTO) 1.1 %; EOSINOPHILS # (AUTO) 0.1 10^3/uL (0.0-0.7); EOSINOPHILS % (AUTO) 2.4 %; HGB - HEMOGLOBIN 8.6 g/dL (12.0-16.0); LYMPHOCYTES # (AUTO) 1.4 10^3/uL (1.5-3.5); LYMPHOCYTES % (AUTO) 26.2 %; MEAN CORPUSCULAR HEMOGLOBIN 26.4 pg (27.0-31.0); MEAN CORPUSCULAR HGB CONC 30.8 g/dL (32.0-36.0); MEAN CORPUSCULAR VOLUME 85.8 fL (81.0-99.0); MEAN PLATELET VOLUME 8.8 fL (7.9-10.8); MONOCYTES # (AUTO) 0.7 10^3/uL (0.0-1.0); MONOCYTES % (AUTO) 12.7 %; NEUTROPHILS # (AUTO) 3.1 10^3/uL (1.5-6.6); NEUTROPHILS % (AUTO) 57.6 %; PLT - PLATELET COUNT 227 10^3/uL (130-450); RED BLOOD COUNT 3.25 10^6/uL (4.20-5.40); RED CELL DISTRIBUTION WIDTH 17.8 % (12.0-15.0); WHITE BLOOD COUNT 5.4 x10^3/uL (4.8-10.8)
[2019-01-04 07:52] LABS: ABSOLUTE RETICS # AUTO 0.11 10^6/uL (0.020-0.110); MEAN RETIC VALUE 109.1; RED BLOOD COUNT 3.24 10^6/uL (4.20-5.40)
[2019-01-04] MEDS ORDERED: FERROUS SULFATE 325 MG TABLET PO SCH (08:00)
[2019-01-04 08:16] LABS: FERRITIN 43.8 ng/mL (11.0-306.8)
[2019-01-04] MEDS: LISINOPRIL 5 MG TABLET PO SCH (08:25)
[2019-01-04] MEDS: ISOSORBIDE MONONITRATE ER 30 MG TABLET PO SCH (08:27)
[2019-01-04] MEDS: METOPROLOL SUCCINATE 50 MG TABLET PO SCH (08:27)
[2019-01-04] MEDS: SPIRONOLACTONE 25 MG TABLET PO SCH (08:27)
[2019-01-04] MEDS: SACCHAROMYCES BOULARDII 250 MG CAPSULE PO SCH (08:27)
[2019-01-04] MEDS: SODIUM CHLORIDE FLUSH 0.9% 10 ML SYRINGE IVP SCH ×2 (08:28→17:27)
[2019-01-04] MEDS: VANCOMYCIN 125 MG CAPSULE PO SCH ×4 (08:28→21:47)
[2019-01-04] MEDS: POLYETHYLENE GLYCOL 3350 17 GM PACKET PO SCH (08:29)
[2019-01-04] MEDS: FAMOTIDINE 20 MG TABLET PO SCH ×2 (08:31→21:38)
[2019-01-04] MEDS: INSULIN ASPART 300 UNIT/3 ML PEN SUBQ SCH ×4 (08:33→21:42)
[2019-01-04] MEDS: SODIUM CHLORIDE 0.9% 1,000 ML IV SCH ×2 (08:36→21:37)
[2019-01-04] MEDS: MEROPENEM 1 GM in SODIUM CHLORIDE 0.9% MINIBAG 100 ML IV SCH ×2 (08:44→21:39)
[2019-01-04 09:18] LABS: % IRON SATURATION 6 % (20-50); IRON 17 ug/dL (28-170); TOTAL IRON BINDING CAPACITY 284 ug/dL (250-450); TRANSFERRIN 203 mg/dL (192-382)
--- NOTE | 2019-01-04 10:43 | PROVIDER PROGRESS NOTE ---
Subjective - Prog Note Date Prog Note Date: 01/04/19 - Subjective Pt reports feeling: Improved Subjective: pt is alert and oriented. pt report her diarrhea is better but she still has a few diarrhea on the night and yesterday afternoon. Review of Update's recommendation, d/c Probiotics, if pt still clinic present diarrhea, will add Flagyl IV. Pt is the risk of C.Diff, because she is underline of antibiotics for treating ESBL bladder infection. Current Medications - Current Medications Current Medications: Active Medications Acetaminophen (Tylenol) 650 mg PO Q4HR PRN PRN Reason: Pain 1 to 4 Hydrocodone Bitart/Acetaminophen ([place] 5/325) 1 tab PO TID PRN PRN Reason: PAIN Last Admin: 01/03/19 20:59 Dose: 1 tab Atorvastatin Calcium (Lipitor) 40 mg PO QPM [facility] Last Admin: 01/03/19 21:00 Dose: 40 mg Bisacodyl (Dulcolax) 5 mg PO BID PRN PRN Reason: Constipation Famotidine (Pepcid) 10 mg PO BID [facility] Last Admin: 01/04/19 08:31 Dose: 10 mg Ferrous Sulfate (Feosol) 325 mg PO DAILYWM [facility] Last Admin: 01/04/19 08:25 Dose: 325 mg Hydralazine HCl (Apresoline Inj) 10 mg IVP QID PRN PRN Reason: Hypertensive Emergency Meropenem 1 gm/ Sodium (Chloride) 100 mls @ 200 mls/hr IV BID [facility] Last Infusion: 01/04/19 09:15 Dose: Infused Acetaminophen (Ofirmev) 100 mls @ 400 mls/hr IV Q6HR PRN PRN Reason: PAIN Sodium Chloride (Normal Saline 0.9%) 1,000 mls @ 83.333 mls/hr IV .Q12H [facility] Stop: 01/05/19 07:59 Last Admin: 01/04/19 08:36 Dose: 83.333 mls/hr Insulin Aspart (Novolog) 2 - 10 unit SUBQ 0800,1200,1700,2100 [facility]; Protocol Last Admin: 01/04/19 08:33 Dose: 2 unit Insulin Human Isoph/Insulin Regular (Novolin) 10 unit SUBQ QPM [facility] Last Admin: 01/03/19 21:00 Dose: 10 unit Isosorbide Mononitrate (Imdur) 30 mg PO DAILY [facility] Last Admin: 01/04/19 08:27 Dose: 30 mg Levothyroxine Sodium (Synthroid) 150 mcg PO QDAC [facility] Last Admin: 01/04/19 06:47 Dose: 150 mcg Lisinopril (Zestril) 2.5 mg PO DAILY [facility] Last Admin: 01/04/19 08:25 Dose: 2.5 mg Metoprolol Succinate (Toprol Xl) 50 mg PO DAILY [facility] Last Admin: 01/04/19 08:27 Dose: 50 mg Multi-Ingredient Ointment (Zinc Oxide) 1 applic TOP PRN PRN PRN Reason: Skin Care Stop: 01/07/19 20:26 Last Admin: 01/01/19 22:11 Dose: 1 applic Ondansetron HCl (Zofran Inj) 4 mg IVP Q6HR PRN PRN Reason: Nausea / Vomiting Polyethylene Glycol (Miralax) 17 gm PO DAILY [facility] Last Admin: 01/04/19 08:29 Dose: Not Given Rivaroxaban (Xarelto) 15 mg PO QDDINNER [facility] Last Admin: 01/03/19 17:33 Dose: 15 mg Sodium Chloride (Normal Saline Flush 0.9%) 10 ml IVP PRN PRN PRN Reason: NEEDED PER PROVIDER ORDERS Sodium Chloride (Normal Saline Flush 0.9%) 10 ml IVP 0100,0900,1700 [facility] Last Admin: 01/04/19 08:28 Dose: 10 ml Spironolactone (Aldactone) 25 mg PO DAILY [facility] Last Admin: 01/04/19 08:27 Dose: 25 mg Vancomycin HCl (Vancocin) 125 mg PO QID [facility] Last Admin: 01/04/19 08:28 Dose: 125 mg Atorvastatin Calcium 40 mg PO DAILY 11/13/17 HYDROcod/ACETAM 5/325 [[place] 5/325] 1 tab PO TID PRN 11/13/17 Insulin NPH Hum/Reg Insulin Hm [Novolin 70-30 100 Unit/ml Vial] 16 units SUBQ 0730 11/13/17 Omeprazole 20 mg PO DAILY 08/31/18 Furosemide 20 mg PO BID 10/03/18 Bisacodyl [Dulcolax] 5 mg PO BID PRN 11/05/18 Rivaroxaban [Xarelto] 15 mg PO DAILY 11/05/18 Objective - Vital Signs/Intake & Output Reviewed Vital Signs: Yes Vital Signs: Vital Signs x48h Temp Pulse Resp BP Pulse Ox 01/04/19 07:53 36.5 C 64 18 139/72 H 94 Intake & Output: Intake & Output 01/01/19 01/02/19 01/03/19 01/04/19 23:59 23:59 23:59 23:59 Intake Total 3920.970 4668.667 3204.75 720 Output Total 1500 1900 2250 850 Balance 2420.970 2768.667 954.75 -130 - Objective General Appearance: positive: No acute distress, Alert. negative: Lethargic Eyes Bilateral: positive: Normal inspection, PERRL, No lid inflammation, Conjunctivae nml ENT: positive: ENT inspection nml, Pharynx nml, No signs of dehydration. negative: Purulent nasal drainage, Pharyngeal erythema, Oral lesions Neck: positive: Nml inspection, Thyroid nml, No JVD, Trachea midline. negative: Thyromegaly, Lymphadenopathy (R), Lymphadenopathy (L), Stiff neck, Swelling/bru ising, Tracheal deviation Respiratory: positive: Chest non-tender, No respiratory distress, Breath sounds nml. negative: Wheezes, Rales, Rhonchi Cardiovascular: positive: Regular rate & rhythm, No murmur, No gallop. negative: Irregularly irregular, Extrasystoles, Tachycardia, Bradycardia, JVD present, Systolic murmur, Diastolic murmur Peripheral Pulses: 2+ Radial (R), 2+ Radial (L), 2+ Dorsalis pedis (R), 2+ Dorsalis pedis (L) Abdomen: positive: Non-tender, No organomegaly, No distention. negative: Tenderness, Guarding, Rebound Back: positive: Nml inspection. negative: CVA tenderness (R), CVA tenderness (L) Skin: positive: Color nml, No rash, Warm, Dry. negative: Cyanosis, Diaphoresis, Pallor Extremities: positive: Non-tender, Nml appearance. negative: Calf tenderness, Joint swelling, Edgar's sign/cords Neurologic/Psychiatric: positive: Oriented x3, Sensation nml, Mood/affect nml. negative: Weakness, Sensory loss, Facial droop, Slurred/abnml speech, Depressed mood/affect - Lab Results Fish Bones: 01/04/19 06:14 01/04/19 06:14 Other Labs: Lab Results x24hrs 01/04/19 01/04/19 01/04/19 Range/Units 07:30 07:30 07:30 WBC (4.8-10.8) x10^3/uL RBC (4.20-5.40) 10^6/uL Hgb (12.0-16.0) g/dL Hct (37.0-47.0) % MCV (81.0-99.0) fL MCH (27.0-31.0) pg MCHC (32.0-36.0) g/dL RDW (12.0-15.0) % Plt Count (130-450) 10^3/uL MPV (7.9-10.8) fL Reticulocyte % (Auto) (0.5-2.3) % Neut # (Auto) (1.5-6.6) 10^3/uL Lymph # (Auto) (1.5-3.5) 10^3/uL [place] # (Auto) (0.0-1.0) 10^3/uL Eos # (Auto) (0.0-0.7) 10^3/uL Baso # (Auto) (0.0-0.1) 10^3/uL Absolute Nucleated RBC x10^3/uL Nucleated RBC % /100WBC Absolute Retic (0.020-0.110) 10^6/uL Sodium (135-145) mmol/L Potassium (3.5-5.0) mmol/L Chloride (101-111) mmol/L Carbon Dioxide (21-32) mmol/L Anion Gap (6-13) BUN (6-20) mg/dL Creatinine (0.4-1.0) mg/dL Estimated GFR (MDRD) (>89) Glucose (70-100) mg/dL Calcium (8.5-10.3) mg/dL Iron 17 L (28-170) ug/dL TIBC 284 (250-450) ug/dL % Saturation 6 L (20-50) % Transferrin 203 (192-382) mg/dL Ferritin 43.8 (11.0-306.8) ng/mL Total Bilirubin (0.2-1.0) mg/dL AST (10-42) IU/L ALT (10-60) IU/L Alkaline Phosphatase (42-121) IU/L Lactate Dehydrogenase 114 (91-225) IU/L Total Protein (6.7-8.2) g/dL Albumin (3.2-5.5) g/dL Globulin (2.1-4.2) g/dL Albumin/Globulin Ratio (1.0-2.2) Vitamin B12 222 (180-914) pg/mL 01/04/19 01/04/19 01/04/19 Range/Units 06:14 06:14 06:14 WBC 5.4 (4.8-10.8) x10^3/uL RBC 3.24 L 3.25 L (4.20-5.40) 10^6/uL Hgb 8.6 L (12.0-16.0) g/dL Hct 27.9 L (37.0-47.0) % MCV 85.8 (81.0-99.0) fL MCH 26.4 L (27.0-31.0) pg MCHC 30.8 L (32.0-36.0) g/dL RDW 17.8 H (12.0-15.0) % Plt Count 227 (130-450) 10^3/uL MPV 8.8 (7.9-10.8) fL Reticulocyte % (Auto) 3.41 H (0.5-2.3) % Neut # (Auto) 3.1 (1.5-6.6) 10^3/uL Lymph # (Auto) 1.4 L (1.5-3.5) 10^3/uL [place] # (Auto) 0.7 (0.0-1.0) 10^3/uL Eos # (Auto) 0.1 (0.0-0.7) 10^3/uL Baso # (Auto) 0.1 (0.0-0.1) 10^3/uL Absolute Nucleated RBC 0.00 x10^3/uL Nucleated RBC % 0.0 /100WBC Absolute Retic 0.110 (0.020-0.110) 10^6/uL Sodium 142 (135-145) mmol/L Potassium 3.7 (3.5-5.0) mmol/L Chloride 107 (101-111) mmol/L Carbon Dioxide 29 (21-32) mmol/L Anion Gap 6.0 (6-13) BUN 25 H (6-20) mg/dL Creatinine 1.5 H (0.4-1.0) mg/dL Estimated GFR (MDRD) 34 L (>89) Glucose 136 H (70-100) mg/dL Calcium 8.4 L (8.5-10.3) mg/dL Iron (28-170) ug/dL TIBC (250-450) ug/dL % Saturation (20-50) % Transferrin (192-382) mg/dL Ferritin (11.0-306.8) ng/mL Total Bilirubin 0.4 (0.2-1.0) mg/dL AST 12 (10-42) IU/L ALT < 10 L (10-60) IU/L Alkaline Phosphatase 58 (42-121) IU/L Lactate Dehydrogenase (91-225) IU/L Total Protein 6.1 L (6.7-8.2) g/dL Albumin 2.9 L (3.2-5.5) g/dL Globulin 3.2 (2.1-4.2) g/dL Albumin/Globulin Ratio 0.9 L (1.0-2.2) Vitamin B12 (180-914) pg/mL ABX Reporting Has patient been on IV antibiotics over the past 48 hours?: Yes Sepsis Event Note (H) - Evaluation Current Stage of Sepsis: Sepsis Possible source of Sepsis: positive: Genitourinary - Sepsis Criteria Sepsis Criteria: Recorded Temperature greater than 38.3C or Less than 36C, Recorded Heart Rate greater than 90 bpm, Respiratory: Increasing oxygen requirements, WBC count greater than 12,000 or less than 4000, PAYING TELLER: altered consciousness (unrelated to primary neuro pathology) Assessment/Plan - Problem List (1) Altered mental status Impression: 4/6 resolved. pt is alert and oriented today 4/5 pt is alert and oriented 4/4 resolved pt is alert but lethargic, she could not answer any questions. pt has hx of acute on chronic bladder infection in UA analysis, pt present fever at ER, elevated WBC. pt's on going infection with sepsis may contribute to her AMS. CT of head is unremarkable. treat with Meropenem for underline UTI and bladder infection check C.diff for diarrhea IVF for NS for her diarrhea and fluid loss Neuro check (2) Sepsis Conclusion/Plan: 01/04 stable, continue antibiotics for bladder infection, continue PO Vancomycin for C.Diff 01/03 no fever, chill. WBC is normal. blood culture is negative continue antibiotics for bladder infection 01/02 WBC is normal today continue antibiotics of Meropenem, PO of vancomycin for underline of infection. 01/01 stable, BP is stable, no more fever, and WBC is down followup blood culture continue antibiotics followup UA culture and sensitivity study pt present elevated WBC, fever, AMS, and tachycardia, UTI is the resource of her infection now. pt's BP is stable now. blood culture, followup treat with antibiotics for UTI IVF of NS tele and vital monitor closely (3) UTI (urinary tract infection) Conclusion/Plan: 01/04 pt had PICC for continue IV antibiotics. pt may need another week IV of M eropenem after d/c, plan either SNF or MAC clinic (will switch antibiotics once daily IV) 01/03 pt will have PICC line today, for another week for IV of antibiotics, pt prefer to have home infusion 01/02 UA culture and sensitivity reveals positive for ESBL, and positive for Meropenem pt had chronic indwell catherization of [place], and recurrent bladder infection with ESBL possible colorization for multiple admission. today UA analysis indicate infection continue UA culture and sensitivity study treat with Meropenem IVF of NS (4) Diarrhea with C.diff positive Conclusion/Plan: 01/04 pt still complain a few times of diarrhea. she is better than before. review of Update, d/c probiotics, will consider adding of Flagyl on tomorrow if clinically continue not stopping diarrhea. 01/03 pt still have one watery diarrhea, continue PO vancomycin, start with IVF as needed lab and vital monitor 01/02 diarrhea stop on last night continue PO vancomycin 01/01 pt stool test for C.Diff positive start PO vancomycin IVF of NS for fluid loss in diarrhea pt has diarrhea at home. we will do C.Diff study, and isolation for C.diff until proved IVF of NS for fluid loss daily vital and lab monitor (5) Diabetes mellitus type 2 in obese Conclusion/Plan: stable, continue slide scale pt took insulin at home. 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 pt like to continue to have indwelling catheter. educate and consult with pt the benefits and risk of indwelling catheter. continue catheter care. (7) weakness, risk of fall pt present weakness, has risk of fall. consult with PT/OT, followup the recommendation (8)obese pt has over 110 kg weight, advise pt loss of weight. (3) UTI (urinary tract infection) Qualifiers: Qualified Code(s): N30.00 - Acute cystitis without hematuria
[2019-01-04] MEDS: HYDROcod/ACETAM 5/325 MG TABLET PO PRN (17:24)
[2019-01-04] MEDS: RIVAROXABAN 15 MG TABLET PO SCH (17:24)
[2019-01-04] MEDS: INSULIN 70/30 HUMAN 100 UNIT/1 ML 10 ML MDV SUBQ SCH (21:39)
[2019-01-04] MEDS: ATORVASTATIN 40 MG TABLET PO SCH (21:39)
[2019-01-05] MEDS: SODIUM CHLORIDE FLUSH 0.9% 10 ML SYRINGE IVP SCH ×3 (00:15→17:03)
[2019-01-05 05:51] LABS: BASOPHILS # (AUTO) 0.1 10^3/uL (0.0-0.1); BASOPHILS % (AUTO) 1.2 %; EOSINOPHILS # (AUTO) 0.1 10^3/uL (0.0-0.7); EOSINOPHILS % (AUTO) 2.2 %; HGB - HEMOGLOBIN 8.7 g/dL (12.0-16.0); LYMPHOCYTES # (AUTO) 1.4 10^3/uL (1.5-3.5); MEAN CORPUSCULAR HEMOGLOBIN 26.3 pg (27.0-31.0); MEAN CORPUSCULAR HGB CONC 30.3 g/dL (32.0-36.0); MEAN CORPUSCULAR VOLUME 86.9 fL (81.0-99.0); MONOCYTES # (AUTO) 0.7 10^3/uL (0.0-1.0); MONOCYTES % (AUTO) 13.6 %; NEUTROPHILS # (AUTO) 2.9 10^3/uL (1.5-6.6); PLT - PLATELET COUNT 235 10^3/uL (130-450); RED BLOOD COUNT 3.29 10^6/uL (4.20-5.40); RED CELL DISTRIBUTION WIDTH 17.7 % (12.0-15.0); WHITE BLOOD COUNT 5.2 x10^3/uL (4.8-10.8)
[2019-01-05] MEDS: HYDROcod/ACETAM 5/325 MG TABLET PO PRN ×2 (06:01→10:28)
[2019-01-05] MEDS: LEVOTHYROXINE 75 MCG TABLET PO SCH (06:01)
[2019-01-05 06:03] LABS: BILIRUBIN,TOTAL 0.5 mg/dL (0.2-1.0); CALCIUM 8.1 mg/dL (8.5-10.3); CREATININE 1.3 mg/dL (0.4-1.0); TOTAL PROTEIN 6.1 g/dL (6.7-8.2)
[2019-01-05] MEDS: ISOSORBIDE MONONITRATE ER 30 MG TABLET PO SCH (08:31)
[2019-01-05] MEDS: LISINOPRIL 5 MG TABLET PO SCH (08:32)
[2019-01-05] MEDS: VANCOMYCIN 125 MG CAPSULE PO SCH ×4 (08:32→21:26)
[2019-01-05] MEDS: SPIRONOLACTONE 25 MG TABLET PO SCH (08:32)
[2019-01-05] MEDS: FAMOTIDINE 20 MG TABLET PO SCH ×2 (08:32→21:25)
[2019-01-05] MEDS: METOPROLOL SUCCINATE 50 MG TABLET PO SCH (08:32)
[2019-01-05] MEDS: INSULIN ASPART 300 UNIT/3 ML PEN SUBQ SCH ×4 (08:33→21:27)
[2019-01-05] MEDS: POLYETHYLENE GLYCOL 3350 17 GM PACKET PO SCH (08:34)
[2019-01-05] MEDS: FERROUS SULFATE 325 MG TABLET PO SCH ×2 (08:34→17:03)
[2019-01-05] MEDS: MEROPENEM 1 GM in SODIUM CHLORIDE 0.9% MINIBAG 100 ML IV SCH ×2 (08:37→21:21)
--- NOTE | 2019-01-05 13:22 | PROVIDER PROGRESS NOTE ---
Subjective - Prog Note Date Prog Note Date: 01/05/19 - Subjective Pt reports feeling: Improved Subjective: pt report she only had one time diarrhea but more likely loose stool. She feel better. she denies fever, chill, chest pain, shortness of breath. Current Medications - Current Medications Current Medications: Active Medications Acetaminophen (Tylenol) 650 mg PO Q4HR PRN PRN Reason: Pain 1 to 4 Hydrocodone Bitart/Acetaminophen ([place] 5/325) 1 tab PO TID PRN PRN Reason: PAIN Last Admin: 01/05/19 10:28 Dose: 1 tab Atorvastatin Calcium (Lipitor) 40 mg PO QPM [facility] Last Admin: 01/04/19 21:39 Dose: 40 mg Bisacodyl (Dulcolax) 5 mg PO BID PRN PRN Reason: Constipation Famotidine (Pepcid) 10 mg PO BID [facility] Last Admin: 01/05/19 08:32 Dose: 10 mg Ferrous Sulfate (Feosol) 325 mg PO BIDWM [facility] Last Admin: 01/05/19 08:34 Dose: 325 mg Hydralazine HCl (Apresoline Inj) 10 mg IVP QID PRN PRN Reason: Hypertensive Emergency Meropenem 1 gm/ Sodium (Chloride) 100 mls @ 200 mls/hr IV BID [facility] Last Infusion: 01/05/19 09:10 Dose: Infused Acetaminophen (Ofirmev) 100 mls @ 400 mls/hr IV Q6HR PRN PRN Reason: PAIN Insulin Aspart (Novolog) 2 - 10 unit SUBQ 0800,1200,1700,2100 [facility]; Protocol Last Admin: 01/05/19 11:42 Dose: 4 unit Insulin Human Isoph/Insulin Regular (Novolin) 10 unit SUBQ QPM [facility] Last Admin: 01/04/19 21:39 Dose: 10 unit Isosorbide Mononitrate (Imdur) 30 mg PO DAILY [facility] Last Admin: 01/05/19 08:31 Dose: 30 mg Levothyroxine Sodium (Synthroid) 150 mcg PO QDAC [facility] Last Admin: 01/05/19 06:01 Dose: 150 mcg Lisinopril (Zestril) 2.5 mg PO DAILY [facility] Last Admin: 01/05/19 08:32 Dose: 2.5 mg Metoprolol Succinate (Toprol Xl) 50 mg PO DAILY [facility] Last Admin: 01/05/19 08:32 Dose: 50 mg Multi-Ingredient Ointment (Zinc Oxide) 1 applic TOP PRN PRN PRN Reason: Skin Care Stop: 01/07/19 20:26 Last Admin: 01/01/19 22:11 Dose: 1 applic Ondansetron HCl (Zofran Inj) 4 mg IVP Q6HR PRN PRN Reason: Nausea / Vomiting Polyethylene Glycol (Miralax) 17 gm PO DAILY [facility] Last Admin: 01/05/19 08:34 Dose: Not Given Rivaroxaban (Xarelto) 15 mg PO QDDINNER [facility] Last Admin: 01/04/19 17:24 Dose: 15 mg Sodium Chloride (Normal Saline Flush 0.9%) 10 ml IVP PRN PRN PRN Reason: NEEDED PER PROVIDER ORDERS Sodium Chloride (Normal Saline Flush 0.9%) 10 ml IVP 0100,0900,1700 [facility] Last Admin: 01/05/19 08:32 Dose: 10 ml Spironolactone (Aldactone) 25 mg PO DAILY [facility] Last Admin: 01/05/19 08:32 Dose: 25 mg Vancomycin HCl (Vancocin) 125 mg PO QID [facility] Last Admin: 01/05/19 12:45 Dose: 125 mg Atorvastatin Calcium 40 mg PO DAILY 11/13/17 HYDROcod/ACETAM 5/325 [[place] 5/325] 1 tab PO TID PRN 11/13/17 Insulin NPH Hum/Reg Insulin Hm [Novolin 70-30 100 Unit/ml Vial] 16 units SUBQ 0730 11/13/17 Omeprazole 20 mg PO DAILY 08/31/18 Furosemide 20 mg PO BID 10/03/18 Bisacodyl [Dulcolax] 5 mg PO BID PRN 11/05/18 Rivaroxaban [Xarelto] 15 mg PO DAILY 11/05/18 Objective - Vital Signs/Intake & Output Reviewed Vital Signs: Yes Vital Signs: Vital Signs x48h Temp Pulse Resp BP Pulse Ox 01/05/19 08:00 36.4 C L 59 L 18 138/56 H 97 Intake & Output: Intake & Output 01/02/19 01/03/19 01/04/19 01/05/19 23:59 23:59 23:59 23:59 Intake Total 4668.667 3204.75 3310 2060 Output Total 1900 2250 2700 1450 Balance 2768.667 954.75 610 610 - Objective General Appearance: positive: No acute distress, Alert. negative: Lethargic Eyes Bilateral: positive: Normal inspection, PERRL, No lid inflammation, Conjunctivae nml ENT: positive: ENT inspection nml, Pharynx nml, No signs of dehydration. neg ative: Purulent nasal drainage, Pharyngeal erythema, Oral lesions Neck: positive: Nml inspection, Thyroid nml, No JVD, Trachea midline. negative: Thyromegaly, Lymphadenopathy (R), Lymphadenopathy (L), Stiff neck, Swelling/bruising, Tracheal deviation Respiratory: positive: Chest non-tender, No respiratory distress, Breath sounds nml. negative: Wheezes, Rales, Rhonchi Cardiovascular: positive: Regular rate & rhythm, No murmur, No gallop. negative: Irregularly irregular, Extrasystoles, Tachycardia, Bradycardia, JVD present, Systolic murmur, Diastolic murmur Peripheral Pulses: 2+ Radial (R), 2+ Radial (L), 2+ Dorsalis pedis (R), 2+ Dorsalis pedis (L) Abdomen: positive: Non-tender, No organomegaly, No distention. negative: Tenderness, Guarding, Rebound Back: positive: Nml inspection. negative: CVA tenderness (R), CVA tenderness (L) Skin: positive: Color nml, No rash, Warm, Dry. negative: Cyanosis, Diaphoresis, Pallor Extremities: positive: Non-tender, Nml appearance. negative: Calf tenderness, Joint swelling, Edgar's sign/cords Neurologic/Psychiatric: positive: Oriented x3, Sensation nml, Mood/affect nml. negative: Weakness, Sensory loss, Facial droop, Slurred/abnml speech, Depressed mood/affect - Lab Results Fish Bones: 01/05/19 05:40 01/05/19 05:40 Other Labs: Lab Results x24hrs 01/05/19 01/05/19 Range/Units 05:40 05:40 WBC 5.2 (4.8-10.8) x10^3/uL RBC 3.29 L (4.20-5.40) 10^6/uL Hgb 8.7 L (12.0-16.0) g/dL Hct 28.6 L (37.0-47.0) % MCV 86.9 (81.0-99.0) fL MCH 26.3 L (27.0-31.0) pg MCHC 30.3 L (32.0-36.0) g/dL RDW 17.7 H (12.0-15.0) % Plt Count 235 (130-450) 10^3/uL MPV 8.0 (7.9-10.8) fL Neut # (Auto) 2.9 (1.5-6.6) 10^3/uL Lymph # (Auto) 1.4 L (1.5-3.5) 10^3/uL [place] # (Auto) 0.7 (0.0-1.0) 10^3/uL Eos # (Auto) 0.1 (0.0-0.7) 10^3/uL Baso # (Auto) 0.1 (0.0-0.1) 10^3/uL Absolute Nucleated RBC 0.01 x10^3/uL Nucleated RBC % 0.1 /100WBC Sodium 142 (135-145) mmol/L Potassium 3.8 (3.5-5.0) mmol/L Chloride 105 (101-111) mmol/L Carbon Dioxide 30 (21-32) mmol/L Anion Gap 7.0 (6-13) BUN 21 H (6-20) mg/dL Creatinine 1.3 H (0.4-1.0) mg/dL Estimated GFR (MDRD) 40 L (>89) Glucose 135 H (70-100) mg/dL Calcium 8.1 L (8.5-10.3) mg/dL Total Bilirubin 0.5 (0.2-1.0) mg/dL AST 16 (10-42) IU/L ALT 11 (10-60) IU/L Alkaline Phosphatase 54 (42-121) IU/L Total Protein 6.1 L (6.7-8.2) g/dL Albumin 3.0 L (3.2-5.5) g/dL Globulin 3.1 (2.1-4.2) g/dL Albumin/Globulin Ratio 1.0 (1.0-2.2) ABX Reporting Has patient been on IV antibiotics over the past 48 hours?: Yes Sepsis Event Note (H) - Evaluation Current Stage of Sepsis: Sepsis Possible source of Sepsis: positive: Genitourinary - Sepsis Criteria Sepsis Criteria: Recorded Temperature greater than 38.3C or Less than 36C, Recorded Heart Rate greater than 90 bpm, Respiratory: Increasing oxygen requirements, WBC count greater than 12,000 or less than 4000, [employer]: altered consciousness (unrelated to primary neuro pathology) Assessment/Plan - Problem List (1) Altered mental status Impression: 01/05 resolved 01/04 resolved. pt is alert and oriented today 01/03 pt is alert and oriented / resolved pt is alert but lethargic, she could not answer any questions. pt has hx of acute on chronic bladder infection in UA analysis, pt present fever at ER, elevated WBC. pt's on going infection with sepsis may contribute to her AMS. CT of head is unremarkable. treat with Meropenem for underline UTI and bladder infection check C.diff for diarrhea IVF for NS for her diarrhea and fluid loss Neuro check (2) Sepsis Conclusion/Plan: 01/05 stable,continue antibiotics for bladder infection, continue PO Vancomycin for C.Diff 01/04 stable, continue antibiotics for bladder infection, continue PO Vancomycin for C.Diff 01/03 no fever, chill. WBC is normal. blood culture is negative continue antibiotics for bladder infection 01/02 WBC is normal today continue antibiotics of Meropenem, PO of vancomycin for underline of infection. 01/01 stable, BP is stable, no more fever, and WBC is down followup blood culture continue antibiotics followup UA culture and sensitivity study pt present elevated WBC, fever, AMS, and tachycardia, UTI is the resource of her infection now. pt's BP is stable now. blood culture, followup treat with antibiotics for UTI IVF of NS tele and vital monitor closely (3) UTI (urinary tract infection) Conclusion/Plan: 01/05 plan d/c to [facility] for IV antibiotic for one week 01/04 pt had PICC for continue IV antibiotics. pt may need another week IV of Meropenem after d/c, plan either SNF or MAC clinic (will switch antibiotics once daily IV) 01/03 pt will have PICC line today, for another week for IV of antibiotics, pt prefer to have home infusion 01/02 UA culture and sensitivity reveals positive for ESBL, and positive for Meropenem pt had chronic indwell catherization of [place], and recurrent bladder infection with ESBL possible colorization for multiple admission. today UA analysis indicate infection continue UA culture and sensitivity study treat with Meropenem IVF of NS (4) Diarrhea with C.diff positive Conclusion/Plan: 01/05 better controlled. continue PO vancomycin, no other meds added 01/04 pt still complain a few times of diarrhea. she is better than before. review of Update, d/c probiotics, will consider adding of Flagyl on tomorrow if clinically continue not stopping diarrhea. 01/03 pt still have one watery diarrhea, continue PO vancomycin, start with IVF as needed lab and vital monitor 01/02 diarrhea stop on last night continue PO vancomycin 01/01 pt stool test for C.Diff positive start PO vancomycin IVF of NS for fluid loss in diarrhea pt has diarrhea at home. we will do C.Diff study, and isolation for C.diff until proved IVF of NS for fluid loss daily vital and lab monitor (5) Diabetes mellitus type 2 in obese Conclusion/Plan: stable, continue slide scale pt took insulin at home. 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 pt like to continue to have indwelling catheter. educate and consult with pt the benefits and risk of indwelling catheter. continue catheter care. (7) weakness, risk of fall 01/05 pt had PT evaluation and treatment, pt is recommended to SNF, plan d/c SNF on tomorrow. continue PT/OT pt present weakness, has risk of fall. consult with PT/OT, followup the recommendation (8)obese pt has over 110 kg weight, advise pt loss of weight. (3) UTI (urinary tract infection) Qualifiers: Qualified Code(s): N30.00 - Acute cystitis without hematuria
[2019-01-05] MEDS: A & D OINTMENT 5 GM PACKET TOP PRN ×2 (14:30→17:07)
[2019-01-05] MEDS: RIVAROXABAN 15 MG TABLET PO SCH (17:03)
[2019-01-05] MEDS: SODIUM CHLORIDE FLUSH 0.9% 10 ML SYRINGE IVP PRN ×2 (21:22→21:31)
[2019-01-05] MEDS: ATORVASTATIN 40 MG TABLET PO SCH (21:25)
[2019-01-05] MEDS: INSULIN 70/30 HUMAN 100 UNIT/1 ML 10 ML MDV SUBQ SCH (21:27)
[2019-01-06] MEDS: SODIUM CHLORIDE FLUSH 0.9% 10 ML SYRINGE IVP SCH ×2 (00:19→08:52)
[2019-01-06] MEDS: LEVOTHYROXINE 75 MCG TABLET PO SCH (06:45)
[2019-01-06] MEDS ORDERED: MAGNESIUM SULFATE 1 GM in SODIUM CHLORIDE 0.9% 50 ML IV ONE (07:25)
[2019-01-06 08:14] LABS: BASOPHILS # (AUTO) 0.1 10^3/uL (0.0-0.1); BASOPHILS % (AUTO) 1.3 %; EOSINOPHILS # (AUTO) 0.1 10^3/uL (0.0-0.7); HGB - HEMOGLOBIN 8.9 g/dL (12.0-16.0); LYMPHOCYTES % (AUTO) 19.3 %; MEAN CORPUSCULAR HGB CONC 30.2 g/dL (32.0-36.0); MEAN CORPUSCULAR VOLUME 86.3 fL (81.0-99.0); MEAN PLATELET VOLUME 8.2 fL (7.9-10.8); MONOCYTES # (AUTO) 0.6 10^3/uL (0.0-1.0); MONOCYTES % (AUTO) 11.2 %; NEUTROPHILS # (AUTO) 3.4 10^3/uL (1.5-6.6); NEUTROPHILS % (AUTO) 66.2 %; PLT - PLATELET COUNT 254 10^3/uL (130-450); RED BLOOD COUNT 3.42 10^6/uL (4.20-5.40); RED CELL DISTRIBUTION WIDTH 17.9 % (12.0-15.0); WHITE BLOOD COUNT 5.1 x10^3/uL (4.8-10.8)
[2019-01-06 08:18] LABS: CALCIUM 8.2 mg/dL (8.5-10.3); CREATININE 1.3 mg/dL (0.4-1.0)
[2019-01-06 08:42] LABS: PLATELET ESTIMATE, MANUAL NORMAL (130-450,000) (NORMAL); PLATELET MORPHOLOGY NORMAL APPEARANCE (NORMAL)
[2019-01-06] MEDS: FAMOTIDINE 20 MG TABLET PO SCH (08:42)
[2019-01-06] MEDS: LISINOPRIL 5 MG TABLET PO SCH (08:42)
[2019-01-06] MEDS: VANCOMYCIN 125 MG CAPSULE PO SCH ×2 (08:42→12:44)
[2019-01-06] MEDS: ISOSORBIDE MONONITRATE ER 30 MG TABLET PO SCH (08:42)
[2019-01-06] MEDS: METOPROLOL SUCCINATE 50 MG TABLET PO SCH (08:43)
[2019-01-06] MEDS: SPIRONOLACTONE 25 MG TABLET PO SCH (08:43)
[2019-01-06] MEDS: POLYETHYLENE GLYCOL 3350 17 GM PACKET PO SCH (08:43)
[2019-01-06] MEDS: FERROUS SULFATE 325 MG TABLET PO SCH (08:44)
[2019-01-06] MEDS: MEROPENEM 1 GM in SODIUM CHLORIDE 0.9% MINIBAG 100 ML IV SCH (08:51)
[2019-01-06] MEDS: INSULIN ASPART 300 UNIT/3 ML PEN SUBQ SCH ×2 (08:53→11:37)
--- NOTE | 2019-01-06 10:39 | Discharge Plan ---
"Discharge Plan for SNF / [facility] - Discharge Plan And Transition Orders Disposition: 03 SNF DC/Xfer Condition: Poor Allergies and Adverse Reactions: Allergies Allergy/AdvReac Type Severity Reaction Status Date / Time No Known Drug Allergies Allergy Verified 12/31/18 14:15 - SNF / [facility] Transition Orders Admit to (Facility): [facility] Under the care of (Name): Medical provider of [facility] Discharge Diagnosis: UTI, diarrhea with C.Diff positive, AMS, Sepsis, DM2, Obese, indwelling catheter, weakness, CHF, hypothyroidism, Medicare Certification Statement: I certify that [facility] care is medically necessary on a continuing basis for any of the conditions for which she/he is receiving care during hospitalization. Notify PCP of admission and forward orders to primary provider for signature. Weight on admission and: Daily Call PCP immediately if weight increases by: 2 kg Other Notification Orders: Call PCP immediately if patient develops dyspnea, chest pain/tightness or edema. House Bowel Program: Yes Additional Bowel Program Orders: If no BM after 2 days, nurse may give M.O.M. 30ml PO PRN and/or ducolax Supp 1 MD and/or MICH 250mg P.O., and/or senna 1-2 tabs PO. On day 3 nurse may give repeat above order until residents constipation is resolved. Annual Influenza Vaccine (between Jun 01 and December 29): Yes Two-step PPD per [facility] [phone] or approved exception documents: Yes Treatments & Other Orders: pt may followup medical provider at [facility] when pt is arrival. Pt may continue to have one week IV of Meropenem for her ESBL bladder infection, two weeks of oral Vancomycin for her C.diff infection. Oxygen Orders: 2 liter of O2 Medication Orders: PLEASE REFER TO THE DISCHARGE MEDICATION LIST. Insulin Orders?: Yes - Medications New Prescriptions: Ferrous Sulfate 325 mg PO DAILY #15 tablet Meropenem [Merrem] 1 gm IV BID #14 vial Vancomycin [Vancocin] 125 mg PO QID #56 capsule - Diet Type: Geriatric Texture: Regular Liquids: Thin May have monthly special meal: Yes - Therapies | Activity Therapy: Evaluation | Treat if indicated: PT, OT Rehabilitation Potential: Maximize functional status Activity: Activity as Tolerated Additional Instructions: pt may followup medical provider at [facility] when pt is arrival. Pt may continue to have one week IV of Meropenem for her ESBL bladder infection, two weeks of oral Vancomycin for her C.diff infection. Insulin Orders - SNF Basal | Correction | Custom Orders: Diagnosis: Diabetes Initiate hypo and hyperglycemia protocols for BG <70 and BG >375. May check BG PRN for signs/symptoms of dysglycemia. Frequency of BG checks: [AC/Meal/HS] Basal Insulin: [] Lantus 100 units / ml inject subq as follows: [] [x] Other: [Novolin 10units QPM] Correction Insulin: - Select the type of insulin below [Choose: Novolog/Humalog]100 units /ml insulin inject subq per orders indicate below [] LOW DOSE [] MODERATE DOSE [x] MODERATE/HIGH DOSE [] HIGH DOSE GB UNITS GB UNITS GB UNITS GB UNITS 61-140 0 UNITS 61-140 0 UNITS 61-140 0 UNITS 61-140 0 UNITS 141-175 1 UNITS 141-175 1 UNITS 141-175 2 UNITS 141-175 3 UNITS 176-225 2 UNITS 176-225 3 UNITS 176-225 4 UNITS 176-225 5 UNITS 226-275 3 UNITS 226-275 5 UNITS 226-275 6 UNITS 226-275 7 UNITS 276-325 4 UNITS 276-325 7 UNITS 276-325 8 UNITS 276-325 9 UNITS 326-375 5 UNITS 326-375 9 UNITS 326-375 10 UNITS 326-375 11 UNITS >375 CONTACT MD >375 CONTACT MD >375 CONTACT MD >375 CONTACT MD Custom Dosing: [Choose: Novolog/Humalog] 100 units/ml Insulin inject subq as follows: GB Units 61-140 [] Units 141-175 [] Units 176-225 [] Units 226-275 [] Units 276-325 []Units 326-375 [] Units >375 Contact MD"
--- NOTE | 2019-01-06 11:08 | DISCHARGE SUMMARY ---
Discharge Summary Discharge Date: 01/06/19 Discharging Provider: GALLEGOS Primary Care Provider: Dr. Jose Luis Metcalf Condition at Discharge: Poor Discharge Disposition: 03 SNF DC/Xfer Discharge Facility Name: [facility] - DIAGNOSES Admission Diagnoses: (1) Altered mental status (2) Sepsis (3) UTI (urinary tract infection) (4) Diarrhea (5) Diabetes mellitus type 2 in obese (6) CKD stage 3 secondary to diabetes (7) HTN (hypertension) Discharge Diagnoses with Status of Each Condition: (1) Altered mental status (2) Sepsis (3) UTI (urinary tract infection) (4) Diarrhea with C.diff positive (5) Diabetes mellitus type 2 in obese (6) indwelling catheter presenting admission (7) weakness, risk of fall (8)obese - HPI History of Present Illness: Ms.Lanetta Pillai is a 72-year-old white female with a past medical history significant of chronic pain, morbidly obese, chronic indwelling roldan with frequent bladder infection, fractured toes, DM type 2, CAD, HTN, hyperlipidemia, CHF,and hypothyroidism, who presented to the ED after her daughter found her w ith altered mental status from last Sunday. Pt is alert but she is very lethargic, could not response any questions. pt's daughter is at her bedside in ER. Her daughter provide her history. Her daughter report she is only person directly with PT/OT, home health AIDS to take care of pt at her home. Pt was recently hospitalized from for weakness, dehydration. Per pt's daughter report, from Last Sunday, pt became felling chill, and sharking, she can not standup, and can not walk at all. Pt's daughter report patient has been mostly bed bound since Sunday. Usually pt can standup by self and can go to bathroom with help. Patient has chronic colonization of ESBL Klebsiella from her indwelling Roldan catheter. Her daughter also report pt has been on diarrhea for two days. No fever, chest pain, headache, focus neurological deficits were reported from her daughter. The care plan was discussed with pt's daughter. Pt's daughter agree pt may need palliative and hospice care if pt's medical conditions continue deteriorated. pt is admitted for AMS in medical floor for further evaluation and treatment. - HOSPITAL COURSE Hospital Course: 1) Altered mental status resolved. pt is alert and oriented plus 3 (2) Sepsis resolved. WBC is oscar, no fever/chill, hemodynamically stable. (3) UTI (urinary tract infection) ESBL positive, continue IV of Meropenem for one week (4) Diarrhea with C.diff positive pt had no diarrhea on yesterday and before yesterday, once loss stool today morning. continue PO vancomycin for two weeks (5) Diabetes mellitus type 2 in obese we use 10unit of Hum 70/30 QPM, and 2-10 slide scale, glucose is controlled (6) indwelling catheter presenting admission pt had indwelling catheter at admission. pt report she frequently had groin skin score and infection, her ice cream machine operator put Roldan Catheter to her. (7) weakness, risk of fall continue SNF for training (8)obese advise pt loss of weight - ALLERGIES Allergies/Adverse Reactions: Allergies Allergy/AdvReac Type Severity Reaction Status Date / Time No Known Drug Allergies Allergy Verified 12/31/18 14:15 - MEDICATIONS Home Medications: Ambulatory Orders Medication Instructions Recorded Confirmed Atorvastatin Calcium 40 mg PO DAILY 11/13/17 12/31/18 HYDROcod/ACETAM 5/325 [[place] 5/325] 1 tab PO TID PRN 11/13/17 12/31/18 Isosorbide Mononitrate ER [Imdur] 30 mg PO DAILY #60 tablet 11/15/17 12/31/18 Metoprolol Succinate [Toprol Xl] 50 mg PO DAILY #60 tablet 11/15/17 12/31/18 Spironolactone [Aldactone] 25 mg PO DAILY #60 tablet 11/15/17 12/31/18 Omeprazole 20 mg PO DAILY 08/31/18 12/31/18 Furosemide 20 mg PO BID 10/03/18 12/31/18 Levothyroxine Sodium 150 mcg PO DAILY #30 tablet 10/03/18 12/31/18 Bisacodyl [Dulcolax] 5 mg PO BID PRN 11/05/18 12/31/18 Rivaroxaban [Xarelto] 15 mg PO DAILY 11/05/18 12/31/18 Lisinopril [Zestril] 2.5 mg PO DAILY #30 tablet 12/23/18 12/31/18 Ferrous Sulfate 325 mg PO DAILY #15 tablet 01/06/19 Insulin 70/30 Human [NovoLIN] 10 unit SUBQ QPM #1 ml 01/06/19 Insulin Aspart [NovoLOG] 2 - 10 unit SUBQ TIDWM #1 pen 01/06/19 Meropenem [Merrem] 1 gm IV BID #14 vial 01/06/19 Vancomycin [Vancocin] 125 mg PO QID #56 capsule 01/06/19 - PHYSICAL EXAM AT DISCHARGE General Appearance: positive: No acute distress, Alert. negative: Lethargic Eyes Bilateral: positive: Normal inspection, PERRL, No lid inflammation, Conjunctivae nml ENT: positive: ENT inspection nml, Pharynx nml, No signs of dehydration. negative: Purulent nasal drainage, Pharyngeal erythema, Oral lesions Neck: positive: Nml inspection, Thyroid nml, No JVD, Trachea midline. negative: Thyromegaly, Lymphadenopathy (R), Lymphadenopathy (L), Stiff neck, Swelling/bruising, Tracheal deviation Respiratory: positive: Chest non-tender, No respiratory distress, Breath sounds nml. negative: Wheezes, Rales, Rhonchi Cardiovascular: positive: Regular rate & rhythm, No murmur, No gallop. negative: Irregularly irregular, Extrasystoles, Tachycardia, Bradycardia, JVD present, Systolic murmur, Diastolic murmur Peripheral Pulses: positive: 2+ Abdomen: positive: Non-tender, No organomegaly, Nml bowel sounds, No distention. negative: Tenderness, Guarding, Rebound Back: positive: Nml inspection. negative: CVA tenderness (R), CVA tenderness (L) Skin: positive: Color nml, No rash, Warm, Dry. negative: Cyanosis, Diaphoresis, Pallor Extremities: positive: Non-tender, Full ROM. negative: Calf tenderness, Joint swelling, Edgar's sign/cords Neurologic/Psychiatric: positive: Oriented x3, Sensation nml, Mood/affect nml. negative: Weakness, Sensory loss, Facial droop, Slurred/abnml speech, Depressed mood/affect - LABS Result Diagrams: 01/06/19 07:55 01/06/19 07:55 - SEPSIS Current Stage of Sepsis: Sepsis Possible source of Sepsis: Genitourinary Sepsis Criteria: Recorded Temperature greater than 38.3C or Less than 36C, Recorded Heart Rate greater than 90 bpm, Respiratory: Increasing oxygen re quirements, WBC count greater than 12,000 or less than 4000, HIP HOP PERFORMERS: altered consciousness (unrelated to primary neuro pathology) - FOLLOW UP Follow Up: pt may followup medical provider at [facility] when pt is arrival. Pt may continue to have one week IV of Meropenem for her ESBL bladder infection, two weeks of oral Vancomycin for her C.diff infection. - TIME SPENT Time Spent in Discharge (Minutes): 50
[2019-01-06 11:22] VITALS: BP 132/47
[2019-01-06] MEDS: HYDROcod/ACETAM 5/325 MG TABLET PO PRN (12:44)
== END 2019-01-06 14:25 | DRG 872 ==
LOC: ED 14:06 → MS2 17:25
PROVIDERS: ADMIT Nurse Practitioner Gerontology; ATTEND Nurse Practitioner
PROC: 05H633Z Insertion of Infusion Device into Left Subclavian Vein, Percutaneous Approach (ICD-10-PCS; principal; 2019-01-03)
PROC: B546ZZA Ultrasonography of Right Subclavian Vein, Guidance (ICD-10-PCS; 2019-01-03)
DX: A41.9 Sepsis, unspecified organism (principal); A04.72 Enterocolitis due to Clostridium difficile, not specified as recurrent; Z87.440 Personal history of urinary (tract) infections; N39.0 Urinary tract infection, site not specified; I11.0 Hypertensive heart disease with heart failure; I50.9 Heart failure, unspecified; I13.0 Hypertensive heart and chronic kidney disease with heart failure and stage 1 through stage 4 chronic kidney disease, or unspecified chronic kidney disease; R41.82 Altered mental status, unspecified; J43.9 Emphysema, unspecified; E66.01 Morbid (severe) obesity due to excess calories; Z68.38 Body mass index [BMI] 38.0-38.9, adult; Z66 Do not resuscitate; E03.9 Hypothyroidism, unspecified; K21.9 Gastro-esophageal reflux disease without esophagitis; K59.09 Other constipation; K64.9 Unspecified hemorrhoids; R32 Unspecified urinary incontinence; J32.9 Chronic sinusitis, unspecified; H91.90 Unspecified hearing loss, unspecified ear; F32.9 Major depressive disorder, single episode, unspecified; F41.9 Anxiety disorder, unspecified; M19.90 Unspecified osteoarthritis, unspecified site; G89.29 Other chronic pain; M54.9 Dorsalgia, unspecified; A41.89 Other specified sepsis; N30.00 Acute cystitis without hematuria; Z90.49 Acquired absence of other specified parts of digestive tract; Z90.710 Acquired absence of both cervix and uterus; Z87.891 Personal history of nicotine dependence; B96.1 Klebsiella pneumoniae [K. pneumoniae] as the cause of diseases classified elsewhere; Z16.12 Extended spectrum beta lactamase (ESBL) resistance; I25.10 Atherosclerotic heart disease of native coronary artery without angina pectoris; E11.22 Type 2 diabetes mellitus with diabetic chronic kidney disease; N18.3 Chronic kidney disease, stage 3 (moderate); Z79.4 Long term (current) use of insulin; Z74.01 Bed confinement status
CPT/HCPCS: 36415; 51702; 70450; 71045; 80048; 80053; 81001; 82607; 82728; 83036; 83540; 83605; 83615; 83690; 83735; 83880; 84443; 84466; 84484; 85025; 85044; 87040; 87077; 87086; 87181; 87275; 87276; 87493; 93005; 96361; 96365; 96367; 97161; 97165; 97530; 99283; 99285; A9270; C1751; J0131; J1815; J2185; J7040; J8499; 80306; 81003; 99284

== ENCOUNTER 2019-02-04 13:24 | Outpatient (CLI) | payer MEDICARE, OTHER ==
[2019-02-04 18:39] LABS: BILIRUBIN,URINE NEGATIVE (NEGATIVE); GLUCOSE, URINE (UA) NEGATIVE (NEGATIVE); KETONES,URINE (UA) NEGATIVE (NEGATIVE); LEUKOCYTE ESTERASE, URINE TRACE (NEGATIVE); NITRITE,URINE NEGATIVE (NEGATIVE); OCCULT BLOOD,URINE NEGATIVE (NEGATIVE); PROTEIN,URINE NEGATIVE (NEGATIVE); UROBILINOGEN,URINE 0.2 (NORMAL) E.U./dL (NORMAL)
[2019-02-04 18:43] LABS: CLARITY,URINE CLEAR (CLEAR)
[2019-02-04 18:47] LABS: BACTERIA,URINE None Seen /HPF (None Seen); RBC,URINE None Seen /HPF (0-5); SQUAMOUS EPITHELIAL CELL,UR RARE Squamous (<= Few)
[2019-02-04 18:49] LABS: AMORPHOUS SEDIMENT,UR Moderate /LPF
== END 2019-02-04 13:25 | disposition home or self-care (01) ==
LOC: LAB.WCP 13:24
PROVIDERS: ATTEND Internal Medicine
DX: T83.511A Infection and inflammatory reaction due to indwelling urethral catheter, initial encounter (principal); E11.22 Type 2 diabetes mellitus with diabetic chronic kidney disease
CPT/HCPCS: 81001; 81003; 87077; 87086; 87181

== ENCOUNTER 2019-02-16 14:18 | Outpatient (CLI) | payer MEDICARE, OTHER | END 2019-02-16 14:19 | disposition critical access hospital (66) | LOC: EMS 14:18 | PROVIDERS: ATTEND Surgery | DX: R06.00 Dyspnea, unspecified (principal); R41.0 Disorientation, unspecified ==

== ENCOUNTER 2019-02-16 14:35 | Inpatient (IN) | payer MEDICARE, OTHER ==
[2019-02-16] MEDS ORDERED: IPRATROPIUM/ALBUTEROL 3 ML NEB INH STA (14:41)
--- NOTE | 2019-02-16 14:46 | ED Physician Documentation ---
PD HPI DYSPNEA - Stated complaint Stated Complaint: SOA - History obtained from History obtained from: EMS - History of Present Illness Timing - onset: How many days ago (4) Timing - onset during: Rest Timing - duration: Days (4) Timing - details: Gradual onset, Still present Inciting event(s): URI Improved by: O2 Worsened by: Exertion, Coughing Associated symptoms: Fever, Cough, Wheezing Similar symptoms before: Diagnosis (pneumonia and COPD) Recently seen: Admitted - Additional information Additional information: 74-year-old female with a history of morbid obesity COPD and chronic pain presents to the emergency department today with altered mental status and hypoxia with labored breathing. She has fever and cough. She has had a recent hospitalization for extended spectrum beta-lactamase producing organism in the urine with sepsis. She was discharged to [facility] and has now been at home on oxygen. She is cared for by her sister at home and she reports that she had a good morning and then this afternoon she developed shaking chills and has become less responsive and needed to have her oxygen turned up. Review of Systems Constitutional: reports: Fever Eyes: denies: Decreased vision Ears: denies: Ear pain Nose: denies: Rhinorrhea / runny nose, Congestion Throat: denies: Sore throat Cardiac: denies: Chest pain / pressure Respiratory: reports: Dyspnea, Cough GI: denies: Abdominal Pain, Nausea, Vomiting, Diarrhea : denies: Dysuria, Frequency Skin: denies: Rash Musculoskeletal: denies: Neck pain, Back pain, Extremity pain, Extremity swelling Neurologic: reports: Generalized weakness. denies: Focal weakness, Numbness PD PAST MEDICAL HISTORY - Past Medical History Cardiovascular: Congestive heart failure, Hypertension Respiratory: COPD, Emphysema, Shortness of breath Neuro: None Endocrine/Autoimmune: Type 2 diabetes, HyPOthyroidism GI: GERD, Chronic constipation, Hemorrhoids EDUCATIONAL INSTITUTION CURATOR: None : Incontinence, Indwelling catheter HEENT: Chronic sinusitis, Chronic hearing loss Psych: Depression, Anxiety Musculoskeletal: Osteoarthritis, Chronic back pain Derm: Other - Past Surgical History Past Surgical History: Yes General: Cholecystectomy /EDUCATIONAL INSTITUTION CURATOR: Hysterectomy - Present Medications Home Medications: Ambulatory Orders Medication Instructions Recorded Confirmed RX: Atorvastatin Calcium 40 mg PO DAILY 11/13/17 12/31/18 RX: HYDROcod/ACETAM 5/325 [[place] 1 tab PO TID PRN 11/13/17 12/31/18 5/325] RX: Isosorbide Mononitrate ER 30 mg PO DAILY #60 tablet 11/15/17 12/31/18 [Imdur] RX: Metoprolol Succinate [Toprol 50 mg PO DAILY #60 tablet 11/15/17 12/31/18 Xl] RX: Spironolactone [Aldactone] 25 mg PO DAILY #60 tablet 11/15/17 12/31/18 RX: Omeprazole 20 mg PO DAILY 08/31/18 12/31/18 RX: Furosemide 20 mg PO BID 10/03/18 12/31/18 RX: Levothyroxine Sodium 150 mcg PO DAILY #30 tablet 10/03/18 12/31/18 RX: Bisacodyl [Dulcolax] 5 mg PO BID PRN 11/05/18 12/31/18 RX: Rivaroxaban [Xarelto] 15 mg PO DAILY 11/05/18 12/31/18 RX: Lisinopril [Zestril] 2.5 mg PO DAILY #30 tablet 12/23/18 12/31/18 Insulin 70/30 Human [NovoLIN] 10 unit SUBQ QPM #1 ml 01/06/19 Insulin Aspart [NovoLOG] 2 - 10 unit SUBQ TIDWM #1 pen 01/06/19 RX: Ferrous Sulfate 325 mg PO DAILY #15 tablet 01/06/19 Tiotropium [place] [Spiriva] 02/16/19 02/16/19 - Allergies Allergies/Adverse Reactions: Allergies Allergy/AdvReac Type Severity Reaction Status Date / Time No Known Drug Allergies Allergy Verified 02/16/19 14:58 - Social History Does the pt smoke?: No Smoking Status: Former smoker Does the pt drink ETOH?: No Does the pt have substance abuse?: No - Immunizations Immunizations are current?: Yes - POLST Patient has POLST: Yes POLST Status: DNR PD ED PE NORMAL - Vitals Vital signs reviewed: Yes (febrile tachy and hypertensive) - General General: Well developed/nourished, Other (74 y/o female barely able to hold her head up lies with her eyes closed and is struggling for a breath. She will respond briefly and has repetative answers. ) - HEENT HEENT: Atraumatic - Neck Neck: Supple, no meningeal sign, No bony TTP - Cardiac Cardiac: No murmur, Other (tachy ) - Respiratory Respiratory: Other (tachypneic with diminished breath sounds. ) - Abdomen Abdomen: Soft, Non tender, Other (obese) - Back Back: No CVA TTP, No spinal TTP - Derm Derm: Normal color, Warm and dry, No rash - Extremities Extremities: No deformity, No edema - Neuro Neuro: clinical account manager 2-12 intact, No motor deficit, No sensory deficit, Normal speech Eye Opening: To Voice Motor: Obeys Commands Verbal: Oriented GCS Score: 14 - Psych Psych: Normal mood, Normal affect Results - Vitals Vitals: Vital Signs - 24 hr 02/16/19 02/16/19 02/16/19 14:38 14:54 15:19 Temperature 39.2 C H Heart Rate 122 H 122 H 122 H Respiratory 18 18 19 Rate Blood Pressure 219/167 H 219/167 H O2 Saturation 95 91 L 02/16/19 02/16/19 02/16/19 16:00 16:13 16:30 Temperature 37.7 C H Heart Rate 115 H 112 H 119 H Respiratory 24 21 16 Rate Blood Pressure 122/55 L 103/69 O2 Saturation 92 97 02/16/19 17:00 Temperature 37.8 C H Heart Rate 114 H Respiratory 27 H Rate Blood Pressure 127/68 O2 Saturation 96 Oxygen O2 Source [Without Activity] Nasal cannula O2 Source Oxymask Oxygen Flow Rate 10 - Labs Labs: Laboratory Tests 02/16/19 02/16/19 02/16/19 14:45 14:45 14:45 WBC 10.8 RBC 3.39 L Hgb 9.4 L Hct 30.0 L MCV 88.5 MCH 27.8 MCHC 31.4 L RDW 18.2 H Plt Count 204 MPV 8.8 Neut # (Auto) 8.7 H Lymph # (Auto) 0.9 L Elbert # (Auto) 1.0 Eos # (Auto) 0.1 Baso # (Auto) 0.1 Absolute Nucleated RBC 0.00 Nucleated RBC % 0.0 Bld Gas Analysis Time Sample Site ABG pH ABG pCO2 ABG pO2 ABG HCO3 ABG Total CO2 ABG O2 Saturation ABG Base Excess Nelson Test O2 Delivery Device O2 Liters/Min Sodium 135 Potassium 5.7 H Chloride 100 L Carbon Dioxide 26 Anion Gap 9.0 BUN 52 H Creatinine 2.0 H Estimated GFR (MDRD) 24 L Glucose 293 H Lactic Acid Calcium 8.6 Total Bilirubin 0.2 AST 14 ALT < 10 L Alkaline Phosphatase 71 Troponin I 0.05 B-Natriuretic Peptide Total Protein 7.1 Albumin 3.5 Globulin 3.6 Albumin/Globulin Ratio 1.0 Lipase 25 Urine Color Urine Clarity Urine pH Ur Specific [place] Urine Protein Urine Glucose (UA) Urine Ketones Urine Occult Blood Urine Nitrite Urine Bilirubin Urine Urobilinogen Ur Leukocyte Esterase Urine RBC Urine WBC Ur Squamous Epith Cells Amorphous Sediment Urine Bacteria Ur Microscopic Review Urine Culture Comments 02/16/19 02/16/19 02/16/19 14:45 14:45 15:00 WBC RBC Hgb Hct MCV MCH MCHC RDW Plt Count MPV Neut # (Auto) Lymph # (Auto) Elbert # (Auto) Eos # (Auto) Baso # (Auto) Absolute Nucleated RBC Nucleated RBC % Bld Gas Analysis Time 1508 Sample Site LEFT RADIAL ABG pH 7.31 L ABG pCO2 49 H ABG pO2 61 L ABG HCO3 24.2 ABG Total CO2 25.7 ABG O2 Saturation 91 L ABG Base Excess -2.3 L Nelson Test POSITIVE O2 Delivery Device NASAL CANNULA O2 Liters/Min 5.00 Sodium Potassium Chloride Carbon Dioxide Anion Gap BUN Creatinine Estimated GFR (MDRD) Glucose Lactic Acid 1.4 Calcium Total Bilirubin AST ALT Alkaline Phosphatase Troponin I B-Natriuretic Peptide 79 Total Protein Albumin Globulin Albumin/Globulin Ratio Lipase Urine Color Urine Clarity Urine pH Ur Specific [place] Urine Protein Urine Glucose (UA) Urine Ketones Urine Occult Blood Urine Nitrite Urine Bilirubin Urine Urobilinogen Ur Leukocyte Esterase Urine RBC Urine WBC Ur Squamous Epith Cells Amorphous Sediment Urine Bacteria Ur Microscopic Review Urine Culture Comments 02/16/19 15:50 WBC RBC Hgb Hct MCV MCH MCHC RDW Plt Count MPV Neut # (Auto) Lymph # (Auto) Elbert # (Auto) Eos # (Auto) Baso # (Auto) Absolute Nucleated RBC Nucleated RBC % Bld Gas Analysis Time Sample Site ABG pH ABG pCO2 ABG pO2 ABG HCO3 ABG Total CO2 ABG O2 Saturation ABG Base Excess Nelson Test O2 Delivery Device O2 Liters/Min Sodium Potassium Chloride Carbon Dioxide Anion Gap BUN Creatinine Estimated GFR (MDRD) Glucose Lactic Acid Calcium Total Bilirubin AST ALT Alkaline Phosphatase Troponin I B-Natriuretic Peptide Total Protein Albumin Globulin Albumin/Globulin Ratio Lipase Urine Color LT. YELLOW Urine Clarity HAZY Urine pH 5.5 Ur Specific [place] 1.010 Urine Protein NEGATIVE Urine Glucose (UA) NEGATIVE Urine Ketones NEGATIVE Urine Occult Blood MODERATE H Urine Nitrite NEGATIVE Urine Bilirubin NEGATIVE Urine Urobilinogen 0.2 (NORMAL) Ur Leukocyte Esterase SMALL H Urine RBC 6-10 H Urine WBC 6-10 H Ur Squamous Epith Cells FEW Squamous Amorphous Sediment Few Urine Bacteria Few Ur Microscopic Review INDICATED Urine Culture Comments INDICATED - Rads (name of study) chest 1 view Radiology: Prelim report reviewed (Impression: 1. There is cardiomegaly. 2 there is reticular opacity within the lower lungs. There is thickening of the minor fissure. Small effusions may be present. Finding could represent lung edema secondary to heart failure. There is no evidence of pneumothorax.), EMP read indepedently, See rad report Procedures - IVC sono (time) 2815 Bedside IVC sono: IVC measures (cm) (1.39), IVC collapsed c insp (cm) (complete), Dehydration (est 1liter deficit) PD MEDICAL DECISION MAKING - ED course Complexity details: reviewed old records, reviewed results, re-evaluated patient, considered differential, d/w patient, d/w family ED course: 74-year-old female with a history of COPD and morbid obesity has had a recent admission for sepsis and she has been recovering at [facility] and has been back home for about 2 weeks. She was doing well at home until today. She today developed fever and chills as well as hypoxia and a decreased LOC. She has normal lactate, she has fever and hypoxia and she has infiltrate on CXR. She has some improvement with the use of duo-neb treatment and IV saline and rocephin are begun. Her roldan is changed out. Dr. Landrum is consulted for admission. Departure - Departure Disposition: [facility] DC/Xfer Clinical Impression: Indwelling catheter present on admission, UTI (urinary tract infection), Moderate COPD (chronic obstructive pulmonary disease), Pneumonia
--- NOTE | 2019-02-16 15:30 | XRAY Report ---
Reason: soa Procedure Date: 02/16/2019 Accession Number: [id number] / [id number] Procedure: XR - Chest 1 View X-Ray CPT Code: 16874 FULL RESULT: EXAM: CHEST RADIOGRAPHY EXAM DATE: 02/16/2019 03:17 PM. CLINICAL HISTORY: Dyspnea. COMPARISON: CHEST FOR LINE PLACEMENT 01/03/2019 3:37 PM. TECHNIQUE: 1 view. FINDINGS: Lungs/Pleura: There is reticular opacity with the lower lungs. There is bilateral costophrenic sulcus blunting. There is thickening of the minor fissure. There is no evidence of pneumothorax. Mediastinum: There is cardiomegaly. There is thoracic aortic calcification. Other: None. IMPRESSION: 1. There is cardiomegaly. 2. There is reticular opacity within the lower lungs. There is thickening of the minor fissure. Small effusions may be present. Findings could represent lung edema secondary to heart failure. 3. There is no evidence of pneumothorax. RADIA
[2019-02-16 15:33] LABS: BASOPHILS # (AUTO) 0.1 10^3/uL (0.0-0.1); BASOPHILS % (AUTO) 0.9 %; EOSINOPHILS # (AUTO) 0.1 10^3/uL (0.0-0.7); EOSINOPHILS % (AUTO) 0.5 %; HGB - HEMOGLOBIN 9.4 g/dL (12.0-16.0); LYMPHOCYTES # (AUTO) 0.9 10^3/uL (1.5-3.5); LYMPHOCYTES % (AUTO) 7.9 %; MEAN CORPUSCULAR HEMOGLOBIN 27.8 pg (27.0-31.0); MEAN CORPUSCULAR HGB CONC 31.4 g/dL (32.0-36.0); MEAN CORPUSCULAR VOLUME 88.5 fL (81.0-99.0); MEAN PLATELET VOLUME 8.8 fL (7.9-10.8); MONOCYTES % (AUTO) 9.6 %; NEUTROPHILS # (AUTO) 8.7 10^3/uL (1.5-6.6); NEUTROPHILS % (AUTO) 81.1 %; PLT - PLATELET COUNT 204 10^3/uL (130-450); RED BLOOD COUNT 3.39 10^6/uL (4.20-5.40); RED CELL DISTRIBUTION WIDTH 18.2 % (12.0-15.0); WHITE BLOOD COUNT 10.8 x10^3/uL (4.8-10.8)
[2019-02-16 15:35] LABS: ABG BASE EXCESS -2.3 mmol/L (-2.0-3.0); ABG HCO3 24.2 mmol/L (22.0-26.0); ABG OXYGEN SATURATION 91 % (94-98); ABG PCO2 49 mmHg (34-45); ABG PH 7.31 (7.35-7.45); ABG PO2 61 mmHg (80-100); ABG TCO2 25.7 MMOL/L (21.0-29.0); ALLEN TEST POSITIVE
[2019-02-16 15:38] LABS: ALBUMIN 3.5 g/dL (3.2-5.5); ALKALINE PHOSPHATASE 71 IU/L (42-121); ALT ALANINE AMINOTRANSFERASE < 10 IU/L (10-60); AST ASPARTATE AMINOTRANSFERASE 14 IU/L (10-42); BILIRUBIN,TOTAL 0.2 mg/dL (0.2-1.0); BUN - BLOOD UREA NITROGEN 52 mg/dL (6-20); CALCIUM 8.6 mg/dL (8.5-10.3); CARBON DIOXIDE - CO2 26 mmol/L (21-32); CHLORIDE 100 mmol/L (101-111); GFR - MDRD 24 (>89); GLUCOSE 293 mg/dL (70-100); LIPASE 25 U/L (22-51); SODIUM 135 mmol/L (135-145); TOTAL PROTEIN 7.1 g/dL (6.7-8.2)
[2019-02-16] MEDS ORDERED: cefTRIAXone 1 GM in SODIUM CHLORIDE 0.9% MINIBAG 100 ML IV STA (15:57)
[2019-02-16] MEDS ORDERED: SODIUM CHLORIDE 0.9% 1,000 ML IV ONE (15:57)
[2019-02-16] MEDS ORDERED: ALBUTEROL NEB 2.5 MG/3 ML INH STA (16:00)
[2019-02-16 16:13] LABS: BILIRUBIN,URINE NEGATIVE (NEGATIVE); GLUCOSE, URINE (UA) NEGATIVE (NEGATIVE); KETONES,URINE (UA) NEGATIVE (NEGATIVE); LEUKOCYTE ESTERASE, URINE SMALL (NEGATIVE); NITRITE,URINE NEGATIVE (NEGATIVE); OCCULT BLOOD,URINE MODERATE (NEGATIVE); PH,URINE 5.5 PH (5.0-7.5); PROTEIN,URINE NEGATIVE (NEGATIVE); UROBILINOGEN,URINE 0.2 (NORMAL) E.U./dL (NORMAL)
[2019-02-16 16:18] LABS: CLARITY,URINE HAZY (CLEAR)
[2019-02-16 16:56] LABS: AMORPHOUS SEDIMENT,UR Few /LPF; BACTERIA,URINE Few /HPF (None Seen); SQUAMOUS EPITHELIAL CELL,UR FEW Squamous (<= Few)
[2019-02-16] MEDS ORDERED: ONDANSETRON 4 MG/2 ML VIAL IVP PRN (17:16)
[2019-02-16] MEDS ORDERED: ACETAMINOPHEN 325 MG TABLET PO PRN (17:16)
[2019-02-16] MEDS ORDERED: ONDANSETRON ODT 4 MG TABLET TL PRN (17:16)
[2019-02-16] MEDS ORDERED: VANCOMYCIN PER PHARMACY 10 GM in SODIUM CHLORIDE 0.9% 250 ML IV STA (17:20)
[2019-02-16] MEDS ORDERED: ALBUTEROL NEB 2.5 MG/3 ML INH PRN (17:20)
--- NOTE | 2019-02-16 17:45 | HISTORY & PHYSICAL EXAMINATION ---
Chief Complaint - Chief Complaint Chief Complaint: lethargy, shaking chills History of Present Illness - Admitted From Admitted From:: Home/ER - History Obtained From Records Reviewed: [facility] History obtained from: Dr. Castano Exam Limitations: Patient's encephalopathy - History of Present Illness HPI Comment/Other: This is an elderly woman who was hospitalized for UTI, dehydration in November of this year. Sent back home to live with her daughter. She returned in December with UTI with sepsis. She has a chronic indwelling Roldan catheter because of urinary incontinence resulting in breakdown of her skin and decubitus ulcers. From the hospitalization in December 2018 of which discharge was January 06, she was transitioned to [facility] long term facility. From [facility] nursing facility she returned back to her daughter's house on January 20. She was followed by home health and required a hospital bed, physical therapy to help her with gait training, and the daughter does her bathing by wheeling her into the shower. She continued to have slow progress with her functional goals because of another UTI and she had extreme fatigue and lethargy which was an obstacle to therapy for physical therapy. Whenever again she is gotten with long term facility she lost at home. She is able to ambulate with a front wheel walker within the home. The hospital bed had still not yet been delivered. They were waiting for it. She is currently sleeping in a recliner. [place] had [place] [employer], been to her [employer] meeting once and had been to a jehovah's witness function once. She now presents to the emergency room because of worsening confusion. It started yesterday with more sleeping but she would wake up and be appropriate. But today was way weaker, and , lethargy, obtundation and labored breathing beg an. In the emergency room she had a fever, cough, was encephalopathic, and could barely hold her head up. All of this started this morning. In addition she developed shaking chills by the afternoon. In the emergency room temperature 39.2, heart rate is 122, blood pressure 219/167 and dropped to 103/69. She requires 10 L flow rate to maintain her O2 sats at 95%. As such she meets criteria cheerier for sepsis with source being chest x-ray indicating bibasilar infiltrates. Today's urinalysis is moderate occult blood, small amount of leukocyte Estrace, 6-10 red cells, 6-10 white cells, few squamous cells, a few bacteria. In the emergency room blood cultures have been done. She has received an albuterol treatment, ceftriaxone, 1 L of normal saline. History - Past Medical History Cardiovascular: reports: Congestive heart failure (Echocardiogram November 2017 with ejection fraction 45 to 50%, right moderate right ventricular enlargement, moderate increased left atrial volume, severe right atrial enlargement, moderate right ventricular enlargement with systolic function normal. RVSP at rest 41 mmHg.), Hypertension Respiratory: reports: COPD, Emphysema, Shortness of breath Neuro: reports: None Endocrine/Autoimmune: reports: Type 2 diabetes, HyPOthyroidism GI: reports: GERD, Chronic constipation, Hemorrhoids RESEARCH DIRECTOR: reports: None : reports: Incontinence, Indwelling catheter HEENT: reports: Chronic sinusitis, Chronic hearing loss Psych: reports: Depression, Anxiety Musculoskeletal: reports: Osteoarthritis, Chronic back pain Derm: reports: Other (Frequent buttock decubiti) MRSA Hx?: No Other Past Medical History: Morbid obesity at 5 foot 7 inches tall, 112.6 kg with a BMI of 38.9 - Past Surgical History General: reports: Cholecystectomy /RESEARCH DIRECTOR: reports: Hysterectomy - Family & Social History Family History: Mother: , Cancer, Father: , CAD, Diabetes, Type 2, Hypertension, Sister: , Cancer Family History Comment/Other: Mother from an unknown type of cancer, father of CAD, HTN and he was diabetic, sister after complications of a CABG, another sister of cancer, a brother of CAD and patient has one sister who is alive and well. 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 She was for 32 years, but her about 2014 years ago. She had 3 children, 3 girls and one boy. The boy at age 12 years. She raised her family in the state of [place]. Patient was a life-long smoker, but quit about 6 years ago after a really bad case of pneumonia. Patient denies alcohol, or other illicit drug use. She wishes to be a DNR. A long discussion about quality of life and possible up coming procedures in the event she would need a cardiac cath. Patient was clear about not wanting anything invasive that would prolong her life. - Substance History Use: Uses substance without health or social issues: Tobacco (quit 6 years ago; no etoh use) - POLST Patient has POLST: Yes POLST Status: DNR Meds/Allgy - Home Medications Home Medications: Ambulatory Orders Medication Instructions Recorded Confirmed Atorvastatin Calcium 40 mg PO DAILY 11/13/17 12/31/18 HYDROcod/ACETAM 5/325 [Ida 5/325] 1 tab PO TID PRN 11/13/17 12/31/18 Isosorbide Mononitrate ER [Imdur] 30 mg PO DAILY #60 tablet 11/15/17 12/31/18 Metoprolol Succinate [Toprol Xl] 50 mg PO DAILY #60 tablet 11/15/17 12/31/18 Spironolactone [Aldactone] 25 mg PO DAILY #60 tablet 11/15/17 12/31/18 Omeprazole 20 mg PO DAILY 08/31/18 12/31/18 Furosemide 20 mg PO BID 10/03/18 12/31/18 Levothyroxine Sodium 150 mcg PO DAILY #30 tablet 10/03/18 12/31/18 Bisacodyl [Dulcolax] 5 mg PO BID PRN 11/05/18 12/31/18 Rivaroxaban [Xarelto] 15 mg PO DAILY 11/05/18 12/31/18 Lisinopril [Zestril] 2.5 mg PO DAILY #30 tablet 12/23/18 12/31/18 Ferrous Sulfate 325 mg PO DAILY #15 tablet 01/06/19 Insulin 70/30 Human [NovoLIN] 10 unit SUBQ QPM #1 ml 01/06/19 Insulin Aspart [NovoLOG] 2 - 10 unit SUBQ TIDWM #1 pen 01/06/19 Tiotropium [place] [Spiriva] 02/16/19 02/16/19 - Allergies Allergies/Adverse Reactions: Allergies Allergy/AdvReac Type Severity Reaction Status Date / Time No Known Drug Allergies Allergy Verified 02/16/19 14:58 Review of Systems - Constitutional Constitutional: reports: Fatigue (constant factor in her life), Fever (today), Chills (today), Malaise - Eyes Eyes: denies: Pain, Irritation, Amaurosis, Blurred vision - Ears, Nose & Throat Ears, Nose & Throat: denies: Ear pain, Nasal pain, Nasal discharge, Sore throat - Cardiovascular Cariovascular: reports: Exertional dyspnea, Decr. exercise tolerance. denies: Irregular heart rate, Palpitations, Chest pain, Edema - Respiratory Respiratory: reports: Cough, SOB at rest, SOB with exertion. denies: Sputum production, Wheezing, Snoring - Gastrointestinal Gastrointestinal: reports: Diarrhea (chronic and intermittent). denies: Abdominal pain, Abdominal distention, Constipation, Black stools, Bloody stools, Nausea, Vomiting - Genitourinary Genitourinary: reports: Frequency, Incontinence - Musculoskeletal Musculoskeletal: reports: Muscle aches. denies: Muscle pain, Back pain - Integumentary Integumentary: reports: Other (still has break down of buttocks but comes and goes with severity) - Neurological Neurological: reports: General weakness (worse today). denies: Focal weakness, Headache - Psychiatric Psychiatric: reports: Depression, Anxiety - Endocrine Endocrine: denies: Polyuria, Polydypsia, Polyphagia - Hematologic/Lymphatic Hematologic/Lymphatic: reports: Anemia. denies: Bruising, Petechiae Prior Level of Functionality: Morbidly obese female with limited mobility. Short distances within her home using a front wheel walker. Relies on daughter to make food bring her food. Relies on daughter and bath aide to help her bathe. Incontinent of urine on a regular basis and uses an indwelling Roldan catheter to help control hygiene and reduce her risk of decubiti which is chronic. Exam - Vital Signs Reviewed Vital Signs: Yes Vital Signs: Vital Signs x48h Temp Pulse Resp BP Pulse Ox 02/16/19 17:00 37.8 C H 114 H 27 H 127/68 96 02/16/19 16:30 37.7 C H 119 H 16 103/69 97 02/16/19 16:13 112 H 21 02/16/19 16:00 115 H 24 122/55 L 92 02/16/19 15:19 122 H 19 219/167 H 91 L 02/16/19 14:54 122 H 18 02/16/19 14:38 39.2 C H 122 H 18 219/167 H 95 - Physical Exam General Appearance: positive: No acute distress, Lethargic (she is w eyes closed and tries to open them to voice, you can see eyebrows go up as she tries to respond but isn't sucessful) Eyes Bilateral: positive: PERRL, EOMI ENT: positive: Dry mucous membranes Neck: positive: No JVD (but difficult to see w large neck size). negative: Stiff neck, Carotid bruit Respiratory: positive: Chest non-tender, Other (slow, shallow, unalbored respiration needing 10 liters oxymask to keep 02 at 92%). negative: Wheezes, Rales, Rhonchi Cardiovascular: positive: Regular rate & rhythm, Systolic murmur. negative: Gallop/S4, Friction rub Peripheral Pulses: positive: 1+ Abdomen: positive: Non-tender, Nml bowel sounds, No distention, Other (can't assess for organomegaly bc of size of panus) Skin: positive: Warm, Dry. negative: Diaphoresis, Pallor Extremities: positive: No pedal edema, Other (large arms and legs) Neurologic/Psychiatric: positive: Other (responds to voice by trying to open eyes, no verbal response, moves arms spontaneously but no to command, will withdraw to pain. GCS of 8 that is moderate.) Babinski Reflex: Right: Down, Left: Down Sepsis Event Note (H) - Evaluation Current Stage of Sepsis: Sepsis Possible source of Sepsis: positive: Pulmonary - Sepsis Criteria Sepsis Criteria: Recorded Temperature greater than 38.3C or Less than 36C, Recorded Heart Rate greater than 90 bpm, Recorded Respiratory Rate greater than 20, Respiratory: Increasing oxygen requirements, LEADERSHIP INTERN: altered consciousness (unrelated to primary neuro pathology), SBP drop more than 40mHg Conclusion/Plan - Problem List (1) Sepsis Conclusion/Plan: with metabolic encephalopathy. Presents rather sudden onset today. She has been doing well at home and had a UTI earlier but today's episode appears to be associated with a lung infiltrate according to radiology and and ER doctor. UA has abnormal constituents but not many WBC. Since she has an indwelling roldan, this may be simple contamination/colonization. She is requiring quite a bit of oxygen. Plan: ICU with acute inpatient stay Change antibiotics in the basis of cultures they become positive Sepsis 3-hour bundle already ordered in the ER, and I will do sepsis 6-hour bundle in the ICU Qualifiers: Sepsis type: sepsis due to unspecified organism Qualified Code(s): A41.9 - Sepsis, unspecified organism (2) Pneumonia Conclusion/Plan: This is pneumonia in a patient who is been in the hospital on a monthly basis since November. Also in a long-term care facility. Will treat with empiric sepsis protocol for pneumonia which include cefepime and vancomycin. Blood cultures have been submitted, urine cultures have been submitted. Use albuterol as needed, oxygen as needed as well. Qualifiers: Pneumonia type: due to unspecified organism Laterality: bilateral Lung location: lower lobe of lung Qualified Code(s): J18.1 - Lobar pneumonia, unspecified organism (3) Indwelling catheter present on admission Conclusion/Plan: noted. Family still wants it in. (4) Acute worsening of stage 3 chronic kidney disease Conclusion/Plan: Her lowest creatinine with her hospitalizations appears to be 1.1. At discharge she was 1.3 with her last admission and today she is 2. Abrupt rise in creatinine could be due to hypotension, as well as dehydration. Plan: IVF monitor creat daily avoid nephrotoxic agents when possible and monitor vancomycin carefully (5) Iron deficiency anemia Conclusion/Plan: seen with 11/2018 and 12/2018 admits. Both confirm low iron. [place] to be from anemia of chronic disease. May be from lack of nutiritonal intake. No GI bleed per history. Plan: IV iron supplement while here. REview old records for EGD and scope hx. Transfuse if < 8 grams of Hgb Qualifiers: Iron deficiency anemia type: unspecified iron deficiency Qualified Code(s): D50.9 - Iron deficiency anemia, unspecified (6) Elevated troponin Conclusion/Plan: check EKG and repeat troponin in 6 hours to evaluate. (7) Chronic systolic congestive heart failure, NYHA class 3 Conclusion/Plan: She has documented low EF. She is getting aggressive IVF resuscitation in face of sepsis. Will diurese when necessary. Right now holding off on giving ERIC, her diuretics while hypotensive. Will give her betablocker to avoid tachycardia. (8) Type 2 diabetes mellitus with hyperglycemia, with long-term current use of insulin Conclusion/Plan: Start Insulin eating protocol. (9) Difficult intravenous access Conclusion/Plan: Nursing has already identified she will need more lines. I have ordered 2 IV's but she is difficult. Last visits needed central Line. I have called Dr. Funes in ER but he is occuppied and will let anesthesia know when they come in . (10) Decubitus ulcer, buttock Conclusion/Plan: bilateral and present on admisison. She spends a ot of time sitting. Family does try to get her up but difficult. ICU nurse to document. Simple barrier cream as treatment for now. Qualifiers: Pressure injury stage: stage 1 (11) Do not resuscitate status Conclusion/Plan: Has been seen by Palliative Care in 11/2018. Snippets of that discussion include: Patient has multiple comorbidities, she does perceive herself as "working her self down". Reports she does perceive herself as declining. She very much hates to go to the hospital, but at this point would still weigh benefits and burdens and going in. She and her daughter have lived together for 5 years, and finds this very comforting. She likes to watch TV, particularly game shows and met a goal shows. When asked what would not be acceptable quality of life, she perceives it would be when she is no longer able to get up and move around, or no hope for improvement back to her current baseline. At end of life she would like to be at home with hospice, she did have this experience with her . Her daughter was there also for the last week, and found this experience positive as well as recently had a friend on hospice and found the team inspiring. She does perceive currently she does have quality of life, she does have a SU ST in place which is do not attempt resuscitation and selective treatments. She does not have a D POA for healthcare, though it would make sense to have her daughter Ryann be primary, form was given and they will complete. Discussed the role of palliative care, patient without any significant symptom management needs, currently being supported by home health. We did discuss what might be of benefit in the future, but will put patient on hold unless has further decline. Patient's goals are to stay at home, avoid hospitalization, at this point in time would accept intervention for acute symptoms that could be reversed, this would actually include hospitalization. Patient does perceive herself is deteriorating and getting weaker, her goal is to remain as independent as long as possible, as long as she has good quality of life would like to stay at home. Patient does have a SU ST in place/DNA R and limited interventions. She does need to define her D POA whom she is identified as her daughter Ryann weeks [phone]. D POA form was given to complete. Patient at end of life would like to consider being at home with hospice if possible. This was the route that she took with her , daughter was present and part of that conversation and support as well and see that as a positive. Patient scores on the prognostic JENNIFER INDEX A total score of 6. This looks at community dwelling adults age is 65 years and older and all cause 1 year mortality. She is scores a 6 which is about 24.9% risk of 1 year mortality,. Risk calculators cannot predict the future for any one individual they give an estimate of how many people with similar risk factors will live and , but cannot identify who will live and who will . - Lab Results Fish Bones: 02/16/19 14:45 02/16/19 14:45 - Diagnostic Imaging Results Diagnostic Imaging Results: positive: Final report reviewed Diagnostic Imaging Results Comments: CHEST RADIOGRAPHY EXAM DATE: 02/16/2019 03:17 PM. CLINICAL HISTORY: Dyspnea. COMPARISON: CHEST FOR LINE PLACEMENT 01/03/2019 3:37 PM. TECHNIQUE: 1 view. FINDINGS: Lungs/Pleura: There is reticular opacity with the lower lungs. There is bilateral costophrenic sulcus blunting. There is thickening of the minor fissure. There is no evidence of pneumothorax. Mediastinum: There is cardiomegaly. There is thoracic aortic calcification. Other: None. IMPRESSION: 1. There is cardiomegaly. 2. There is reticular opacity within the lower lungs. There is thickening of the minor fissure. Small effusions may be present. Findings could represent lung edema secondary to heart failure. 3. There is no evidence of pneumothorax. - EKG Results EKG Interpreted Independently: No EKG Comparison: Other (no EKG done yet) Core Measures - Anticipated LOS I expect patient to be DC'd or transferred within 96 hours.: Yes - DVT/VTE - Prophylaxis VTE/DVT Device ordered at admit?: Yes
[2019-02-16] MEDS: CEFEPIME 2 GM in SODIUM CHLORIDE 0.9% MINIBAG 100 ML IV SCH ×2 (18:51→19:59)
[2019-02-16] MEDS ORDERED: SODIUM CHLORIDE FLUSH 0.9% 10 ML SYRINGE ONE (18:51)
[2019-02-16] MEDS ORDERED: VANCOMYCIN INJ 2 GM in SODIUM CHLORIDE 0.9% 500 ML IV STA (19:00)
[2019-02-16] MEDS ORDERED: BISACODYL 5 MG TABLET PO PRN (19:17)
[2019-02-16] MEDS: ACETAMINOPHEN 1,000 MG/100 ML 100 ML IV PRN (19:57)
[2019-02-16] MEDS: SODIUM CHLORIDE FLUSH 0.9% 10 ML SYRINGE IVP PRN ×2 (20:28→21:19)
--- NOTE | 2019-02-16 20:59 | XRAY Report ---
Reason: Line placement Procedure Date: 02/16/2019 Accession Number: [id number] / [id number] Procedure: XR - Chest for Line Placement CPT Code: FULL RESULT: EXAM: CHEST RADIOGRAPHY EXAM DATE: 02/16/2019 07:57 PM. CLINICAL HISTORY: Line placement. COMPARISON: CHEST 1 VIEW 02/16/2019 3:04 PM. TECHNIQUE: 1 view. FINDINGS: Lungs/Pleura: There is perihilar reticular opacity. Small effusions may be present. No pneumothorax. Mediastinum: There is cardiomegaly. Other: None. IMPRESSION: 1. Right approach PICC tip projects over the medial right subclavian region. The tip is approximately 10-12 cm proximal to the cavoatrial junction. 2. Remainder stable. RADIA
[2019-02-16] MEDS ORDERED: INSULIN GLARGINE 300 UNIT/3 ML PEN SUBQ SCH (21:00)
[2019-02-16 21:08] LABS: HB2 TOTAL 8.7 g/dL; HEMOGLOBIN A1C 0.45 g/dL; HEMOGLOBIN A1C % 6.9 % (4.6-6.2)
[2019-02-16] MEDS: INSULIN ASPART 300 UNIT/3 ML PEN SUBQ SCH (21:19)
[2019-02-16] MEDS: NYSTATIN POWDER 15 GM TOP SCH (21:19)
[2019-02-16] MEDS: SODIUM CHLORIDE FLUSH 0.9% 10 ML SYRINGE IVP SCH (21:19)
[2019-02-16] MEDS ORDERED: SODIUM CHLORIDE FLUSH 0.9% 10 ML SYRINGE IVP PRN (21:39)
[2019-02-16] MEDS ORDERED: MIN OIL/DIMETHICON/COCONUT OIL 92 GM TUBE TOP PRN (21:40)
[2019-02-16] MEDS ORDERED: LACTATED RINGERS 1,000 ML IV SCH (22:00)
--- NOTE | 2019-02-16 22:21 | MISCELLANEOUS PROVIDER NOTE ---
Miscellaneous Provider Note - - Note: Critical Care Note HPI Comment/Other: This is an elderly woman who was hospitalized for UTI, dehydration in November of this year. Sent back home to live with her daughter. She returned in December with UTI with sepsis. She has a chronic indwelling Blanco catheter because of urinary incontinence resulting in breakdown of her skin and decubitus ulcers. From the hospitalization in December 2018 of which discharge was January 06, she was transitioned to [facility] nursing facility. From [facility] nursing facility she returned back to her daughter's house on January 20. She was followed by home health and required a hospital bed, physical therapy to help her with gait training, and the daughter does her bathing by wheeling her into the shower. She continued to have slow progress with her functional goals because of another UTI and she had extreme fatigue and lethargy which was an obstacle to therapy for physical therapy. Whenever again she is gotten with [facility] she lost at home. She is able to ambulate with a front wheel walker within the home. The hospital bed had still not yet been delivered. They were waiting for it. She is currently sleeping in a recliner. She had been to the [employer], been to her [employer] meeting once and had been to a [employer] function once. She now presents to the emergency room because of worsening confusion. It started yesterday with more sleeping but she would wake up and be appropriate. But today was way weaker, and , lethargy, obtundation and labored breathing began. In the emergency room she had a fever, cough, was encephalopathic, and could barely hold her head up. All of this started this morning. In addition she developed shaking chills by the afternoon. In the emergency room temperature 39.2, heart rate is 122, blood pressure 219/167 and dropped to 103/69. She requires 10 L flow rate to maintain her O2 sats at 95%. As such she meets criteria cheerier for sepsis with source being chest x-ray indicating bibasilar infiltrates. Today's urinalysis is moderate occult blood, small amount of leukocyte Estrace, 6-10 red cells, 6-10 white cells, few squamous cells, a few bacteria. In the emergency room blood cultures have been done. She has received an albuterol treatment, ceftriaxone, 1 L of normal saline. Subjective: Patient with respiratory distress, weakness, fevers to a T-max of 30.9. Relates no chest pain, no nausea vomiting GI or symptoms. PICC line was dislodged. Objective:T-max of 38.9, heart rate variable to 84 to 106 bpm, blood pressure 88/37. 93% O2 saturation on 10 L oxygen mask. Respiratory of 21 General: Patient is ill-appearing and in mild to moderate respiratory distress on a 10 L oxygen mask. HEENT: Pupils are equal round round reactive light and accommodation. Extraocular muscle bilateral intact. No buccal lesions. No conjunctival pallor. NCAT. Neck: No JVD no bruits no lymphadenopathy. No thyromegaly. Trachea midline. CV/lungs: RRR. No murmurs gallops clicks or rubs. Decreased breath sounds bibasilarly with mild expiratory rhonchi no rales no wheezin, increased work of breath noted. Abdomen: Soft nontender nondistended possible sounds all quads no HSM next Extremities/skin: PICC line placed. Bipedal edema, 2+ pulses dorsalis pedis. Spontaneous movement of upper and lower extremities. Neuro: Grossly intact. Labs: Reviewed Imaging studies: Reviewed Assessment/plan: (1) Sepsis Conclusion/Plan: with metabolic encephalopathy. Patient has uptrending in WBC, 13.6 along with febrile episodes. Patient requiring increasing oxygenation now on 10 L oxygen mask, Levophed started. Status post PICC line placement. Lactic acid was uptrending. Patient may also have uptrending troponin as a result of demand ischemia with superimposed sepsis. Plan: Continue with critical care management, blood cultures to follow. Sepsis 3-hour bundle already ordered in the ER, and I will do sepsis 6-hour bundle in the ICU Patient's blood pressures have been going down with map less than 60, will be placed on Levophed for this, PICC line was dislodged and a renewal by anesthesia today, early goal-directed therapy indicated as patient might be an early distributive shock. Fluids started with LR as patient has received normal saline in the ED and has underlying systolic heart failure would avoid fluid overload. Qualifiers: Sepsis type: sepsis due to unspecified organism Qualified Code(s): A41.9 - Sepsis, unspecified organism (2) Pneumonia With associated acute hypoxemic respiratory failure Conclusion/Plan: This is pneumonia in a patient who is been in the hospital on a monthly basis si november. Also in a long-term care facility. Will treat with empiric sepsis protocol for pneumonia which include cefepime and vancomycin. Blood cultures have been submitted, urine cultures have been submitted. Patient's ABG showed a pH of 7.31/PCO2 49/PO2 of 61/bicarb 24.2 on 5 L nasal cannula. Patient requiring increased oxygenation with 10 L oxygen mask with 93% O2 saturation. Unable to perform a CTA as tech had explained that it would be toxic to administer IV contrast via pick and will need a above 20-gauge to peripheral or improved creatinine clearance. Perhaps a VQ scan or once renal function improves may revisit per Qualifiers: Pneumonia type: due to unspecified organism Laterality: bilateral Lung location: lower lobe of lung Qualified Code(s): J18.1 - Lobar pneumonia, unspecified organism (3) Elevated troponin Conclusion/Plan: Secondary to possible type II OK-demand ischemia as evidenced with lateral ischemia with T-wave abnormalities on serial ECG with no overt ST-T wave depression or elevations, but does have poor R wave progression; as it pertains to patient's sepsis however Uptrending troponin levels to 0.29 at 2044, EKG to follow, history of a non-STEMI concerning as patient will need to be placed on IV heparin and would need to hold Xarelto since patient is on this for TIA. BNP is 79. Prior echocardiogram shows a 45 to 50% EF with moderate right ventricular dilatation. Continue with troponin trending. She has expressed wishes of no aggressive cardiac intervention such as catheterization. Aggressive medical management for now. (4) Indwelling catheter present on admission Conclusion/Plan: noted. Family still wants it in. (5) Acute worsening of stage 3 chronic kidney disease Conclusion/Plan: Her lowest creatinine with her hospitalizations appears to be 1.1. At discharge she was 1.3 with her last admission and today she is 2. Abrupt rise in creatinine could be due to hypotension, as well as dehydration. Plan: IVF-LR monitor creat daily avoid nephrotoxic agents when possible and monitor vancomycin carefully (6) Iron deficiency anemia Conclusion/Plan: seen with 11/2018 and 12/2018 admits. Both confirm low iron. [place] to be from anemia of chronic disease. May be from lack of nutiritonal intake. No GI bleed per history. Plan: IV iron supplement while here. REview old records for EGD and scope hx. Hemoglobin is downtrending, transfusion threshold less than 8 g/dL. Qualifiers: Iron deficiency anemia type: unspecified iron deficiency Qualified Code(s): D50.9 - Iron deficiency anemia, unspecified (7) Chronic systolic congestive heart failure, NYHA class 3 Conclusion/Plan: She has documented low EF, Approximately 45 to 50% with RVSP and RAP elevated with RVD. Patient received aggressive IV fluid resuscitation in the setting of sepsis however fluid overload was a concern. She is currently receiving LR. Plan: In the setting of elevated troponins patient may have worsening CHF versus type II demand ischemia in the setting of sepsis. Repeat echocardiogram prudent. Right now holding off on giving ERIC, her diuretics while hypotensive. Would hold off beta blockade for now due to early distributive shock as it relates to her sepsis. Would diurese if necessary (8) Type 2 diabetes mellitus with hyperglycemia, with long-term current use of insulin Conclusion/Plan: Start Insulin eating protocol. (9) Difficult intravenous access Conclusion/Plan: Status post PICC line placement with subsequent dislodgment and now anesthesia is replacing PICC line (10) Decubitus ulcer, buttock Conclusion/Plan: bilateral and present on admisison. She spends a ot of time sitting. Family does try to get her up but difficult. ICU nurse to document. Simple barrier cream as treatment for now. Qualifiers: Pressure injury stage: stage 1 (11) Do not resuscitate status Conclusion/Plan: Has been seen by Palliative Care in 11/2018. She does perceive currently she does have quality of life, she does have a SU ST in place which is do not attempt resuscitation and selective treatments. She does not have a D POA for healthcare, though it would make sense to have her daughter Ryann be primary, form was given and they will complete. Discussed the role of palliative care, patient without any significant symptom management needs, currently being supported by home health. We did discuss what might be of benefit in the future, but will put patient on hold unless has further decline. Patient's goals are to stay at home, avoid hospitalization, at this point in time would accept intervention for acute symptoms that could be reversed, this would actually include hospitalization. Patient does perceive herself is deteriorating and getting weaker, her goal is to remain as independent as long as possible, as long as she has good quality of life would like to stay at home. Patient does have a SU ST in place/DNA R and limited interventions. She does need to define her D POA whom she is identified as her daughter Ryann weeks [phone]. D POA form was given to complete. Patient at end of life would like to consider being at home with hospice if possible. This was the route that she took with her , daughter was present and part of that conversation and support as well and see that as a positive. Patient scores on the prognostic JENNIFER INDEX A total score of 6. This looks at community dwelling adults age is 65 years and older and all cause 1 year mortality. She is scores a 6 which is about 24.9% risk of 1 year mortality,. Risk calculators cannot predict the future for any one individual they give an estimate of how many people with similar risk factors will live and , but cannot identify who will live and who will . Total critical care time 35 minutes
[2019-02-16 22:43] LABS: INR 1.4 (0.8-1.2); PT - PROTHROMBIN TIME 15.1 secs (9.9-12.6)
--- NOTE | 2019-02-16 22:55 | XRAY Report ---
Reason: line placement Procedure Date: 02/16/2019 Accession Number: [id number] / [id number] Procedure: XR - Chest for Line Placement CPT Code: FULL RESULT: EXAM: CHEST RADIOGRAPHY EXAM DATE: 02/16/2019 10:38 PM. CLINICAL HISTORY: Line placement. COMPARISON: CHEST FOR LINE PLACEMENT 02/16/2019 7:43 PM. TECHNIQUE: 1 view. FINDINGS: Lungs/Pleura: Stable appearance of the chest. Mediastinum: Heart size unchanged. Other: None. IMPRESSION: Right approach PICC tip is again seen within the medial subclavian region. Remainder stable. RADIA
[2019-02-17 00:07] LABS: HGB - HEMOGLOBIN 8.7 g/dL (12.0-16.0); MEAN CORPUSCULAR HEMOGLOBIN 27.2 pg (27.0-31.0); MEAN CORPUSCULAR HGB CONC 30.2 g/dL (32.0-36.0); MEAN CORPUSCULAR VOLUME 90.1 fL (81.0-99.0); MEAN PLATELET VOLUME 8.6 fL (7.9-10.8); RED BLOOD COUNT 3.19 10^6/uL (4.20-5.40); RED CELL DISTRIBUTION WIDTH 18.5 % (12.0-15.0); WHITE BLOOD COUNT 13.6 x10^3/uL (4.8-10.8)
[2019-02-17] MEDS ORDERED: HEPARIN 5,000 UNIT/ML VIAL IVP ONE (00:44)
[2019-02-17] MEDS: HEPARIN 25000UNITS/500ML (D5W) 25,000 UNIT/500 ML BAG IV SCH ×2 (01:09→21:08)
[2019-02-17] MEDS: oxyCODONE 5 MG TABLET PO PRN ×3 (01:14→14:14)
[2019-02-17] MEDS: ACETAMINOPHEN 1,000 MG/100 ML 100 ML IV PRN ×3 (03:17→16:10)
[2019-02-17] MEDS: SODIUM CHLORIDE FLUSH 0.9% 10 ML SYRINGE IVP PRN (06:30)
[2019-02-17] MEDS: LEVOTHYROXINE 75 MCG TABLET PO SCH (06:37)
[2019-02-17 06:43] LABS: VBG PH 7.25 (7.31-7.41)
[2019-02-17] MEDS: CEFEPIME 2 GM in SODIUM CHLORIDE 0.9% MINIBAG 100 ML IV SCH ×2 (06:45→20:09)
[2019-02-17 06:51] LABS: ALBUMIN 3.4 g/dL (3.2-5.5); CALCIUM 8.4 mg/dL (8.5-10.3); CREATININE 2.1 mg/dL (0.4-1.0); PHOSPHORUS 3.7 mg/dL (2.5-4.6)
[2019-02-17] MEDS: MORPHINE 2 MG/ML SYRINGE IVP PRN (07:50)
--- NOTE | 2019-02-17 08:02 | XRAY Report ---
Reason: PNA Procedure Date: 02/17/2019 Accession Number: [id number] / [id number] Procedure: XR - Chest 1 View X-Ray CPT Code: 98438 FULL RESULT: EXAM: CHEST RADIOGRAPHY, PORTABLE 1 VIEW EXAM DATE: 02/17/2019 07:35 AM. CLINICAL HISTORY: Reassessment of 74-year-old female with pneumonia. COMPARISON: CHEST FOR LINE PLACEMENT 02/16/2019 10:22 PM. CHEST FOR LINE PLACEMENT 02/16/2019 7:43 PM. CHEST 1 VIEW 02/16/2019 3:04 PM AND PREVIOUS. TECHNIQUE: 718 hour AP supine portable view. FINDINGS: Lungs/Pleura: Suboptimal inspiratory effort. Minimal areas of atelectasis both lung bases, right greater than left. No pleural effusion or pneumothorax bilaterally. Mediastinum: Moderate cardiomegaly with increased pulmonary vascular congestion. No adenopathy. Other: Trachea is midline. Osseous structures unremarkable as demonstrated. IMPRESSION: Minimal areas of patchy atelectasis. Cardiomegaly with findings most suggestive of mild CHF, without overt pulmonary edema. RADIA
[2019-02-17] MEDS: INSULIN ASPART 300 UNIT/3 ML PEN SUBQ SCH ×4 (08:29→21:23)
[2019-02-17] MEDS: ATORVASTATIN 40 MG TABLET PO SCH (08:39)
[2019-02-17] MEDS: FERROUS SULFATE 325 MG TABLET PO SCH (08:39)
[2019-02-17] MEDS: POLYETHYLENE GLYCOL 3350 17 GM PACKET PO SCH (08:40)
[2019-02-17] MEDS ORDERED: METOPROLOL SUCCINATE 50 MG TABLET PO SCH (09:00)
[2019-02-17] MEDS ORDERED: ENOXAPARIN 40 MG/0.4 ML SYRINGE SUBQ SCH (09:00)
[2019-02-17 09:25] LABS: HGB - HEMOGLOBIN 8.9 g/dL (12.0-16.0); MEAN CORPUSCULAR HEMOGLOBIN 27.3 pg (27.0-31.0); MEAN CORPUSCULAR HGB CONC 30.9 g/dL (32.0-36.0); MEAN CORPUSCULAR VOLUME 88.2 fL (81.0-99.0); MEAN PLATELET VOLUME 7.8 fL (7.9-10.8); RED BLOOD COUNT 3.28 10^6/uL (4.20-5.40); RED CELL DISTRIBUTION WIDTH 18.4 % (12.0-15.0); WHITE BLOOD COUNT 8.5 x10^3/uL (4.8-10.8)
--- NOTE | 2019-02-17 10:36 | PROVIDER PROGRESS NOTE ---
Subjective - Prog Note Date Prog Note Date: 02/17/19 Prog Note Time: 10:27 - Subjective Pt reports feeling: Improved Subjective: she is up in bed, taking her pills, speaking to RN and getting ready to eat breakfast. Encephalopathy seems to have resolved after a very rough night! Current Medications - Current Medications Current Medications: Active Medications Albuterol () 2.5 mg INH Q2HR PRN PRN Reason: Wheezing Atorvastatin Calcium (Lipitor) 40 mg PO DAILY [facility] Last Admin: 02/17/19 08:39 Dose: 40 mg Bisacodyl (Dulcolax) 5 mg PO BID PRN PRN Reason: Constipation Ferrous Sulfate (Feosol) 325 mg PO DAILY [facility] Last Admin: 02/17/19 08:39 Dose: 325 mg Cefepime HCl 2 gm/ Sodium (Chloride) 100 mls @ 200 mls/hr IV Q12H [facility] Last Infusion: 02/17/19 07:12 Dose: Infused Acetaminophen (Ofirmev) 100 mls @ 400 mls/hr IV Q6HR PRN PRN Reason: PAIN Last Infusion: 02/17/19 10:00 Dose: Infused Norepinephrine Bitartrate 8 mg (/ Dextrose) 250 mls @ 15 mls/hr IV .[id number] [facility]; Protocol Last Titration: 02/17/19 10:32 Dose: 8 mcg/min, 15 mls/hr Heparin Sodium/Dextrose () 25,000 unit in 500 mls @ 27.36 mls/hr IV .[id number] [facility]; Protocol Last Titration: 02/17/19 09:00 Dose: 10 unit/kg/hr, 22.8 mls/hr Vancomycin HCl 1 gm/Vancomycin HCl 500 mg/ Sodium Chloride 500 mls @ 250 mls/hr IV Q24H [facility] Insulin Aspart (Novolog) 1 - 5 unit SUBQ 0800,1200,1700,2100 [facility]; Protocol Last Admin: 02/17/19 08:29 Dose: 2 unit Insulin Glargine (Lantus Solostar) 10 unit SUBQ QPM [facility] Last Admin: 02/16/19 21:18 Dose: 10 unit Levothyroxine Sodium (Synthroid) 150 mcg PO QDAC [facility] Last Admin: 02/17/19 06:37 Dose: 150 mcg Mineral Oil (Cavilon) 1 applic TOP PRN PRN PRN Reason: Skin Care Last Admin: 02/17/19 00:20 Dose: 1 applic Morphine Sulfate (Morphine) 2 mg IVP Q2H PRN PRN Reason: Pain 8 to 10 Last Admin: 02/17/19 07:50 Dose: 2 mg Nystatin (Nystop) 1 applic TOP BID [facility] Last Admin: 02/16/19 21:19 Dose: 1 applic Ondansetron HCl (Zofran Inj) 4 mg IVP Q6HR PRN PRN Reason: Nausea / Vomiting Ondansetron HCl (Zofran Odt) 4 mg TL Q6HR PRN PRN Reason: Nausea / Vomiting Oxycodone HCl (Roxicodone) 5 mg PO Q4HR PRN PRN Reason: Pain 5 to 7 Last Admin: 02/17/19 08:39 Dose: 5 mg Polyethylene Glycol (Miralax) 17 gm PO DAILY [facility] Last Admin: 02/17/19 08:40 Dose: 17 gm Sodium Chloride (Normal Saline Flush 0.9%) 10 ml IVP PRN PRN PRN Reason: NEEDED PER PROVIDER ORDERS Last Admin: 02/17/19 06:30 Dose: 10 ml Sodium Chloride (Normal Saline Flush 0.9%) 10 ml IVP 0100,0900,1700 [facility] Last Admin: 02/16/19 21:19 Dose: 10 ml Sodium Chloride (Normal Saline Flush 0.9%) 20 ml IVP PRN PRN PRN Reason: After Blood Draw Atorvastatin Calcium 40 mg PO DAILY 11/13/17 HYDROcod/ACETAM 5/325 [[place] 5/325] 1 tab PO TID PRN 11/13/17 Omeprazole 20 mg PO DAILY 08/31/18 Furosemide 20 mg PO BID 10/03/18 Bisacodyl [Dulcolax] 5 mg PO BID PRN 11/05/18 Rivaroxaban [Xarelto] 15 mg PO DAILY 11/05/18 Tiotropium [place] [Spiriva] 02/16/19 Objective - Vital Signs/Intake & Output Reviewed Vital Signs: Yes Vital Signs: Vital Signs Temp Pulse Pulse Resp BP Pulse Ox 02/17/19 09:56 70 17 101/36 L 94 02/17/19 09:48 71 16 101/36 L 94 02/17/19 09:40 37.8 C H 83 17 121/49 L 94 02/17/19 08:46 88 17 135/47 H 93 02/17/19 08:00 37.6 C H 89 17 94/78 93 02/17/19 07:49 80 20 02/17/19 07:38 36.4 C L 81 17 94/78 93 02/17/19 07:00 37.4 C 75 143/60 H 95 02/17/19 06:55 71 142/61 H 95 02/17/19 06:50 72 150/65 H 02/17/19 06:45 78 134/58 H Intake & Output: Intake & Output 02/14/19 02/15/19 02/16/19 02/17/19 23:59 23:59 23:59 23:59 Intake Total 6875.678 7833.101 Output Total 925 1385 Balance 853.000 120.101 - Objective General Appearance: positive: No acute distress, Alert, Other (Short statured morbidly obese elderly female, much more alert than last night. Last night she could barely hold her head up in was responsive only to voice by trying to open her eyes. This morning she is awake, speaking appropriately.) Eyes Bilateral: positive: PERRL, EOMI ENT: positive: Pharynx nml Neck: negative: Stiff neck, Carotid bruit Respiratory: positive: Chest non-tender. negative: Wheezes, Rales, Rhonchi Cardiovascular: positive: Regular rate & rhythm. negative: Gallop/S4, Friction rub Abdomen: positive: Non-tender, Nml bowel sounds, Other (Huge, huge abdominal pannus, difficult to assess for any organomegaly). negative: Guarding, Rebound Skin: positive: Warm, Dry Extremities: positive: Full ROM (but difficult for her to move her legs, uses arms ok), Other (Legs are huge. Lymphedematous.) Neurologic/Psychiatric: positive: Oriented x3, CN's nml (2-12), Motor nml - Lab Results Fish Bones: 02/17/19 09:17 02/17/19 06:28 Other Labs: Lab Results x24hrs 02/17/19 02/17/19 02/17/19 Range/Units 09:17 06:28 06:28 WBC 8.5 (4.8-10.8) x10^3/uL RBC 3.28 L (4.20-5.40) 10^6/uL Hgb 8.9 L (12.0-16.0) g/dL Hct 28.9 L (37.0-47.0) % MCV 88.2 (81.0-99.0) fL MCH 27.3 (27.0-31.0) pg MCHC 30.9 L (32.0-36.0) g/dL RDW 18.4 H (12.0-15.0) % Plt Count 198 (130-450) 10^3/uL MPV 7.8 L (7.9-10.8) fL Neut # (Auto) (1.5-6.6) 10^3/uL Lymph # (Auto) (1.5-3.5) 10^3/uL [place] # (Auto) (0.0-1.0) 10^3/uL Eos # (Auto) (0.0-0.7) 10^3/uL Baso # (Auto) (0.0-0.1) 10^3/uL Absolute Nucleated RBC x10^3/uL Nucleated RBC % /100WBC PT (9.9-12.6) secs INR (0.8-1.2) D-Dimer (200.0-255.0) ng/mL Anti-Xa Level 0.9 H ( - 0.7) U/mL Bld Gas Analysis Time Sample Site ABG pH (7.35-7.45) ABG pCO2 (34-45) mmHg ABG pO2 (80-100) mmHg ABG HCO3 (22.0-26.0) mmol/L ABG Total CO2 (21.0-29.0) MMOL/L ABG O2 Saturation (94-98) % ABG Base Excess (-2.0-3.0) mmol/L Nelson Test VBG pH 7.250 L (7.31-7.41) Ionized Calcium 1.12 L (1.15-1.33) mmol/L O2 Delivery Device O2 Liters/Min LPM Sodium (135-145) mmol/L Potassium (3.5-5.0) mmol/L Chloride (101-111) mmol/L Carbon Dioxide (21-32) mmol/L Anion Gap (6-13) BUN (6-20) mg/dL Creatinine (0.4-1.0) mg/dL Estimated GFR (MDRD) (>89) Glucose (70-100) mg/dL Glycated Hemoglobin (4.6-6.2) % Estim Average Glucose (70-100) Lactic Acid (0.5-2.2) mmol/L Calcium (8.5-10.3) mg/dL Phosphorus (2.5-4.6) mg/dL Magnesium (1.7-2.8) mg/dL Total Bilirubin (0.2-1.0) mg/dL AST (10-42) IU/L ALT (10-60) IU/L Alkaline Phosphatase (42-121) IU/L Troponin I (<0.49) ng/mL B-Natriuretic Peptide (5-100) pg/mL Total Protein (6.7-8.2) g/dL Albumin (3.2-5.5) g/dL Globulin (2.1-4.2) g/dL Albumin/Globulin Ratio (1.0-2.2) Lipase (22-51) U/L Urine Color Urine Clarity (CLEAR) Urine pH (5.0-7.5) PH Ur Specific [place] (1.002-1.030) Urine Protein (NEGATIVE) mg/dL Urine Glucose (UA) (NEGATIVE) mg/dL Urine Ketones (NEGATIVE) mg/dL Urine Occult Blood (NEGATIVE) Urine Nitrite (NEGATIVE) Urine Bilirubin (NEGATIVE) Urine Urobilinogen (NORMAL) E.U./dL Ur Leukocyte Esterase (NEGATIVE) Urine RBC (0-5) /HPF Urine WBC (0-5) /HPF Ur Squamous Epith Cells (<= Few) Amorphous Sediment /LPF Urine Bacteria (None Seen) /HPF Ur Microscopic Review Urine Culture Comments Nasal Screen MRSA (PCR) (NEGATIVE) Blood Type Antibody Screen 02/17/19 02/17/19 02/17/19 Range/Units 06:28 06:28 06:28 WBC (4.8-10.8) x10^3/uL RBC (4.20-5.40) 10^6/uL Hgb (12.0-16.0) g/dL Hct (37.0-47.0) % MCV (81.0-99.0) fL MCH (27.0-31.0) pg MCHC (32.0-36.0) g/dL RDW (12.0-15.0) % Plt Count (130-450) 10^3/uL MPV (7.9-10.8) fL Neut # (Auto) (1.5-6.6) 10^3/uL Lymph # (Auto) (1.5-3.5) 10^3/uL [place] # (Auto) (0.0-1.0) 10^3/uL Eos # (Auto) (0.0-0.7) 10^3/uL Baso # (Auto) (0.0-0.1) 10^3/uL Absolute Nucleated RBC x10^3/uL Nucleated RBC % /100WBC PT (9.9-12.6) secs INR (0.8-1.2) D-Dimer (200.0-255.0) ng/mL Anti-Xa Level ( - 0.7) U/mL Bld Gas Analysis Time Sample Site ABG pH (7.35-7.45) ABG pCO2 (34-45) mmHg ABG pO2 (80-100) mmHg ABG HCO3 (22.0-26.0) mmol/L ABG Total CO2 (21.0-29.0) MMOL/L ABG O2 Saturation (94-98) % ABG Base Excess (-2.0-3.0) mmol/L Nelson Test VBG pH (7.31-7.41) Ionized Calcium (1.15-1.33) mmol/L O2 Delivery Device O2 Liters/Min LPM Sodium (135-145) mmol/L Potassium (3.5-5.0) mmol/L Chloride (101-111) mmol/L Carbon Dioxide (21-32) mmol/L Anion Gap (6-13) BUN (6-20) mg/dL Creatinine (0.4-1.0) mg/dL Estimated GFR (MDRD) (>89) Glucose (70-100) mg/dL Glycated Hemoglobin (4.6-6.2) % Estim Average Glucose (70-100) Lactic Acid (0.5-2.2) mmol/L Calcium (8.5-10.3) mg/dL Phosphorus (2.5-4.6) mg/dL Magnesium 1.6 L (1.7-2.8) mg/dL Total Bilirubin (0.2-1.0) mg/dL AST (10-42) IU/L ALT (10-60) IU/L Alkaline Phosphatase (42-121) IU/L Troponin I 0.36 (<0.49) ng/mL B-Natriuretic Peptide 517 H (5-100) pg/mL Total Protein (6.7-8.2) g/dL Albumin (3.2-5.5) g/dL Globulin (2.1-4.2) g/dL Albumin/Globulin Ratio (1.0-2.2) Lipase (22-51) U/L Urine Color Urine Clarity (CLEAR) Urine pH (5.0-7.5) PH Ur Specific [place] (1.002-1.030) Urine Protein (NEGATIVE) mg/dL Urine Glucose (UA) (NEGATIVE) mg/dL Urine Ketones (NEGATIVE) mg/dL Urine Occult Blood (NEGATIVE) Urine Nitrite (NEGATIVE) Urine Bilirubin (NEGATIVE) Urine Urobilinogen (NORMAL) E.U./dL Ur Leukocyte Esterase (NEGATIVE) Urine RBC (0-5) /HPF Urine WBC (0-5) /HPF Ur Squamous Epith Cells (<= Few) Amorphous Sediment /LPF Urine Bacteria (None Seen) /HPF Ur Microscopic Review Urine Culture Comments Nasal Screen MRSA (PCR) (NEGATIVE) Blood Type Antibody Screen 02/17/19 02/17/19 02/17/19 Range/Units 06:28 01:02 00:05 WBC (4.8-10.8) x10^3/uL RBC (4.20-5.40) 10^6/uL Hgb (12.0-16.0) g/dL Hct (37.0-47.0) % MCV (81.0-99.0) fL MCH (27.0-31.0) pg MCHC (32.0-36.0) g/dL RDW (12.0-15.0) % Plt Count (130-450) 10^3/uL MPV (7.9-10.8) fL Neut # (Auto) (1.5-6.6) 10^3/uL Lymph # (Auto) (1.5-3.5) 10^3/uL [place] # (Auto) (0.0-1.0) 10^3/uL Eos # (Auto) (0.0-0.7) 10^3/uL Baso # (Auto) (0.0-0.1) 10^3/uL Absolute Nucleated RBC x10^3/uL Nucleated RBC % /100WBC PT (9.9-12.6) secs INR (0.8-1.2) D-Dimer (200.0-255.0) ng/mL Anti-Xa Level ( - 0.7) U/mL Bld Gas Analysis Time Sample Site ABG pH (7.35-7.45) ABG pCO2 (34-45) mmHg ABG pO2 (80-100) mmHg ABG HCO3 (22.0-26.0) mmol/L ABG Total CO2 (21.0-29.0) MMOL/L ABG O2 Saturation (94-98) % ABG Base Excess (-2.0-3.0) mmol/L Nelson Test VBG pH (7.31-7.41) Ionized Calcium (1.15-1.33) mmol/L O2 Delivery Device O2 Liters/Min LPM Sodium 137 (135-145) mmol/L Potassium 5.4 H (3.5-5.0) mmol/L Chloride 101 (101-111) mmol/L Carbon Dioxide 25 (21-32) mmol/L Anion Gap 11.0 (6-13) BUN 55 H (6-20) mg/dL Creatinine 2.1 H (0.4-1.0) mg/dL Estimated GFR (MDRD) 23 L (>89) Glucose 246 H (70-100) mg/dL Glycated Hemoglobin (4.6-6.2) % Estim Average Glucose (70-100) Lactic Acid (0.5-2.2) mmol/L Calcium 8.4 L (8.5-10.3) mg/dL Phosphorus 3.7 (2.5-4.6) mg/dL Magnesium (1.7-2.8) mg/dL Total Bilirubin (0.2-1.0) mg/dL AST (10-42) IU/L ALT (10-60) IU/L Alkaline Phosphatase (42-121) IU/L Troponin I 0.30 (<0.49) ng/mL B-Natriuretic Peptide (5-100) pg/mL Total Protein (6.7-8.2) g/dL Albumin 3.4 (3.2-5.5) g/dL Globulin (2.1-4.2) g/dL Albumin/Globulin Ratio (1.0-2.2) Lipase (22-51) U/L Urine Color Urine Clarity (CLEAR) Urine pH (5.0-7.5) PH Ur Specific [place] (1.002-1.030) Urine Protein (NEGATIVE) mg/dL Urine Glucose (UA) (NEGATIVE) mg/dL Urine Ketones (NEGATIVE) mg/dL Urine Occult Blood (NEGATIVE) Urine Nitrite (NEGATIVE) Urine Bilirubin (NEGATIVE) Urine Urobilinogen (NORMAL) E.U./dL Ur Leukocyte Esterase (NEGATIVE) Urine RBC (0-5) /HPF Urine WBC (0-5) /HPF Ur Squamous Epith Cells (<= Few) Amorphous Sediment /LPF Urine Bacteria (None Seen) /HPF Ur Microscopic Review Urine Culture Comments Nasal Screen MRSA (PCR) (NEGATIVE) Blood Type O POSITIVE Antibody Screen NEGATIVE 02/16/19 02/16/19 02/16/19 Range/Units 23:55 23:55 22:40 WBC 13.6 H (4.8-10.8) x10^3/uL RBC 3.19 L (4.20-5.40) 10^6/uL Hgb 8.7 L (12.0-16.0) g/dL Hct 28.8 L (37.0-47.0) % MCV 90.1 (81.0-99.0) fL MCH 27.2 (27.0-31.0) pg MCHC 30.2 L (32.0-36.0) g/dL RDW 18.5 H (12.0-15.0) % Plt Count 219 (130-450) 10^3/uL MPV 8.6 (7.9-10.8) fL Neut # (Auto) (1.5-6.6) 10^3/uL Lymph # (Auto) (1.5-3.5) 10^3/uL [place] # (Auto) (0.0-1.0) 10^3/uL Eos # (Auto) (0.0-0.7) 10^3/uL Baso # (Auto) (0.0-0.1) 10^3/uL Absolute Nucleated RBC x10^3/uL Nucleated RBC % /100WBC PT (9.9-12.6) secs INR (0.8-1.2) D-Dimer (200.0-255.0) ng/mL Anti-Xa Level 0.2 ( - 0.7) U/mL Bld Gas Analysis Time Sample Site ABG pH (7.35-7.45) ABG pCO2 (34-45) mmHg ABG pO2 (80-100) mmHg ABG HCO3 (22.0-26.0) mmol/L ABG Total CO2 (21.0-29.0) MMOL/L ABG O2 Saturation (94-98) % ABG Base Excess (-2.0-3.0) mmol/L Nelson Test VBG pH (7.31-7.41) Ionized Calcium (1.15-1.33) mmol/L O2 Delivery Device O2 Liters/Min LPM Sodium (135-145) mmol/L Potassium (3.5-5.0) mmol/L Chloride (101-111) mmol/L Carbon Dioxide (21-32) mmol/L Anion Gap (6-13) BUN (6-20) mg/dL Creatinine (0.4-1.0) mg/dL Estimated GFR (MDRD) (>89) Glucose (70-100) mg/dL Glycated Hemoglobin (4.6-6.2) % Estim Average Glucose (70-100) Lactic Acid 2.1 (0.5-2.2) mmol/L Calcium (8.5-10.3) mg/dL Phosphorus (2.5-4.6) mg/dL Magnesium (1.7-2.8) mg/dL Total Bilirubin (0.2-1.0) mg/dL AST (10-42) IU/L ALT (10-60) IU/L Alkaline Phosphatase (42-121) IU/L Troponin I (<0.49) ng/mL B-Natriuretic Peptide (5-100) pg/mL Total Protein (6.7-8.2) g/dL Albumin (3.2-5.5) g/dL Globulin (2.1-4.2) g/dL Albumin/Globulin Ratio (1.0-2.2) Lipase (22-51) U/L Urine Color Urine Clarity (CLEAR) Urine pH (5.0-7.5) PH Ur Specific [place] (1.002-1.030) Urine Protein (NEGATIVE) mg/dL Urine Glucose (UA) (NEGATIVE) mg/dL Urine Ketones (NEGATIVE) mg/dL Urine Occult Blood (NEGATIVE) Urine Nitrite (NEGATIVE) Urine Bilirubin (NEGATIVE) Urine Urobilinogen (NORMAL) E.U./dL Ur Leukocyte Esterase (NEGATIVE) Urine RBC (0-5) /HPF Urine WBC (0-5) /HPF Ur Squamous Epith Cells (<= Few) Amorphous Sediment /LPF Urine Bacteria (None Seen) /HPF Ur Microscopic Review Urine Culture Comments Nasal Screen MRSA (PCR) (NEGATIVE) Blood Type Antibody Screen 02/16/19 02/16/19 02/16/19 Range/Units 20:45 20:45 18:20 WBC (4.8-10.8) x10^3/uL RBC (4.20-5.40) 10^6/uL Hgb (12.0-16.0) g/dL Hct (37.0-47.0) % MCV (81.0-99.0) fL MCH (27.0-31.0) pg MCHC (32.0-36.0) g/dL RDW (12.0-15.0) % Plt Count (130-450) 10^3/uL MPV (7.9-10.8) fL Neut # (Auto) (1.5-6.6) 10^3/uL Lymph # (Auto) (1.5-3.5) 10^3/uL [place] # (Auto) (0.0-1.0) 10^3/uL Eos # (Auto) (0.0-0.7) 10^3/uL Baso # (Auto) (0.0-0.1) 10^3/uL Absolute Nucleated RBC x10^3/uL Nucleated RBC % /100WBC PT (9.9-12.6) secs INR (0.8-1.2) D-Dimer (200.0-255.0) ng/mL Anti-Xa Level ( - 0.7) U/mL Bld Gas Analysis Time Sample Site ABG pH (7.35-7.45) ABG pCO2 (34-45) mmHg ABG pO2 (80-100) mmHg ABG HCO3 (22.0-26.0) mmol/L ABG Total CO2 (21.0-29.0) MMOL/L ABG O2 Saturation (94-98) % ABG Base Excess (-2.0-3.0) mmol/L Nelson Test VBG pH (7.31-7.41) Ionized Calcium (1.15-1.33) mmol/L O2 Delivery Device O2 Liters/Min LPM Sodium (135-145) mmol/L Potassium (3.5-5.0) mmol/L Chloride (101-111) mmol/L Carbon Dioxide (21-32) mmol/L Anion Gap (6-13) BUN (6-20) mg/dL Creatinine (0.4-1.0) mg/dL Estimated GFR (MDRD) (>89) Glucose (70-100) mg/dL Glycated Hemoglobin 6.9 H (4.6-6.2) % Estim Average Glucose 151 H (70-100) Lactic Acid (0.5-2.2) mmol/L Calcium (8.5-10.3) mg/dL Phosphorus (2.5-4.6) mg/dL Magnesium (1.7-2.8) mg/dL Total Bilirubin (0.2-1.0) mg/dL AST (10-42) IU/L ALT (10-60) IU/L Alkaline Phosphatase (42-121) IU/L Troponin I 0.29 (<0.49) ng/mL B-Natriuretic Peptide (5-100) pg/mL Total Protein (6.7-8.2) g/dL Albumin (3.2-5.5) g/dL Globulin (2.1-4.2) g/dL Albumin/Globulin Ratio (1.0-2.2) Lipase (22-51) U/L Urine Color Urine Clarity (CLEAR) Urine pH (5.0-7.5) PH Ur Specific [place] (1.002-1.030) Urine Protein (NEGATIVE) mg/dL Urine Glucose (UA) (NEGATIVE) mg/dL Urine Ketones (NEGATIVE) mg/dL Urine Occult Blood (NEGATIVE) Urine Nitrite (NEGATIVE) Urine Bilirubin (NEGATIVE) Urine Urobilinogen (NORMAL) E.U./dL Ur Leukocyte Esterase (NEGATIVE) Urine RBC (0-5) /HPF Urine WBC (0-5) /HPF Ur Squamous Epith Cells (<= Few) Amorphous Sediment /LPF Urine Bacteria (None Seen) /HPF Ur Microscopic Review Urine Culture Comments Nasal Screen MRSA (PCR) NEGATIVE (NEGATIVE) Blood Type Antibody Screen 02/16/19 02/16/19 02/16/19 Range/Units 15:50 15:00 14:45 WBC (4.8-10.8) x10^3/uL RBC (4.20-5.40) 10^6/uL Hgb (12.0-16.0) g/dL Hct (37.0-47.0) % MCV (81.0-99.0) fL MCH (27.0-31.0) pg MCHC (32.0-36.0) g/dL RDW (12.0-15.0) % Plt Count (130-450) 10^3/uL MPV (7.9-10.8) fL Neut # (Auto) (1.5-6.6) 10^3/uL Lymph # (Auto) (1.5-3.5) 10^3/uL [place] # (Auto) (0.0-1.0) 10^3/uL Eos # (Auto) (0.0-0.7) 10^3/uL Baso # (Auto) (0.0-0.1) 10^3/uL Absolute Nucleated RBC x10^3/uL Nucleated RBC % /100WBC PT 15.1 H (9.9-12.6) secs INR 1.4 H (0.8-1.2) D-Dimer (200.0-255.0) ng/mL Anti-Xa Level ( - 0.7) U/mL Bld Gas Analysis Time 1508 Sample Site LEFT RADIAL ABG pH 7.31 L (7.35-7.45) ABG pCO2 49 H (34-45) mmHg ABG pO2 61 L (80-100) mmHg ABG HCO3 24.2 (22.0-26.0) mmol/L ABG Total CO2 25.7 (21.0-29.0) MMOL/L ABG O2 Saturation 91 L (94-98) % ABG Base Excess -2.3 L (-2.0-3.0) mmol/L Nelson Test POSITIVE VBG pH (7.31-7.41) Ionized Calcium (1.15-1.33) mmol/L O2 Delivery Device NASAL CANNULA O2 Liters/Min 5.00 LPM Sodium (135-145) mmol/L Potassium (3.5-5.0) mmol/L Chloride (101-111) mmol/L Carbon Dioxide (21-32) mmol/L Anion Gap (6-13) BUN (6-20) mg/dL Creatinine (0.4-1.0) mg/dL Estimated GFR (MDRD) (>89) Glucose (70-100) mg/dL Glycated Hemoglobin (4.6-6.2) % Estim Average Glucose (70-100) Lactic Acid (0.5-2.2) mmol/L Calcium (8.5-10.3) mg/dL Phosphorus (2.5-4.6) mg/dL Magnesium (1.7-2.8) mg/dL Total Bilirubin (0.2-1.0) mg/dL AST (10-42) IU/L ALT (10-60) IU/L Alkaline Phosphatase (42-121) IU/L Troponin I (<0.49) ng/mL B-Natriuretic Peptide (5-100) pg/mL Total Protein (6.7-8.2) g/dL Albumin (3.2-5.5) g/dL Globulin (2.1-4.2) g/dL Albumin/Globulin Ratio (1.0-2.2) Lipase (22-51) U/L Urine Color LT. YELLOW Urine Clarity HAZY (CLEAR) Urine pH 5.5 (5.0-7.5) PH Ur Specific [place] 1.010 (1.002-1.030) Urine Protein NEGATIVE (NEGATIVE) mg/dL Urine Glucose (UA) NEGATIVE (NEGATIVE) mg/dL Urine Ketones NEGATIVE (NEGATIVE) mg/dL Urine Occult Blood MODERATE H (NEGATIVE) Urine Nitrite NEGATIVE (NEGATIVE) Urine Bilirubin NEGATIVE (NEGATIVE) Urine Urobilinogen 0.2 (NORMAL) (NORMAL) E.U./dL Ur Leukocyte Esterase SMALL H (NEGATIVE) Urine RBC 6-10 H (0-5) /HPF Urine WBC 6-10 H (0-5) /HPF Ur Squamous Epith Cells FEW Squamous (<= Few) Amorphous Sediment Few /LPF Urine Bacteria Few (None Seen) /HPF Ur Microscopic Review INDICATED Urine Culture Comments INDICATED Nasal Screen MRSA (PCR) (NEGATIVE) Blood Type Antibody Screen 02/16/19 02/16/19 02/16/19 Range/Units 14:45 14:45 14:45 WBC (4.8-10.8) x10^3/uL RBC (4.20-5.40) 10^6/uL Hgb (12.0-16.0) g/dL Hct (37.0-47.0) % MCV (81.0-99.0) fL MCH (27.0-31.0) pg MCHC (32.0-36.0) g/dL RDW (12.0-15.0) % Plt Count (130-450) 10^3/uL MPV (7.9-10.8) fL Neut # (Auto) (1.5-6.6) 10^3/uL Lymph # (Auto) (1.5-3.5) 10^3/uL Graham # (Auto) (0.0-1.0) 10^3/uL Eos # (Auto) (0.0-0.7) 10^3/uL Baso # (Auto) (0.0-0.1) 10^3/uL Absolute Nucleated RBC x10^3/uL Nucleated RBC % /100WBC PT (9.9-12.6) secs INR (0.8-1.2) D-Dimer 245.8 (200.0-255.0) ng/mL Anti-Xa Level ( - 0.7) U/mL Bld Gas Analysis Time Sample Site ABG pH (7.35-7.45) ABG pCO2 (34-45) mmHg ABG pO2 (80-100) mmHg ABG HCO3 (22.0-26.0) mmol/L ABG Total CO2 (21.0-29.0) MMOL/L ABG O2 Saturation (94-98) % ABG Base Excess (-2.0-3.0) mmol/L Nelson Test VBG pH (7.31-7.41) Ionized Calcium (1.15-1.33) mmol/L O2 Delivery Device O2 Liters/Min LPM Sodium (135-145) mmol/L Potassium (3.5-5.0) mmol/L Chloride (101-111) mmol/L Carbon Dioxide (21-32) mmol/L Anion Gap (6-13) BUN (6-20) mg/dL Creatinine (0.4-1.0) mg/dL Estimated GFR (MDRD) (>89) Glucose (70-100) mg/dL Glycated Hemoglobin (4.6-6.2) % Estim Average Glucose (70-100) Lactic Acid 1.4 (0.5-2.2) mmol/L Calcium (8.5-10.3) mg/dL Phosphorus (2.5-4.6) mg/dL Magnesium (1.7-2.8) mg/dL Total Bilirubin (0.2-1.0) mg/dL AST (10-42) IU/L ALT (10-60) IU/L Alkaline Phosphatase (42-121) IU/L Troponin I (<0.49) ng/mL B-Natriuretic Peptide 79 (5-100) pg/mL Total Protein (6.7-8.2) g/dL Albumin (3.2-5.5) g/dL Globulin (2.1-4.2) g/dL Albumin/Globulin Ratio (1.0-2.2) Lipase (22-51) U/L Urine Color Urine Clarity (CLEAR) Urine pH (5.0-7.5) PH Ur Specific [place] (1.002-1.030) Urine Protein (NEGATIVE) mg/dL Urine Glucose (UA) (NEGATIVE) mg/dL Urine Ketones (NEGATIVE) mg/dL Urine Occult Blood (NEGATIVE) Urine Nitrite (NEGATIVE) Urine Bilirubin (NEGATIVE) Urine Urobilinogen (NORMAL) E.U./dL Ur Leukocyte Esterase (NEGATIVE) Urine RBC (0-5) /HPF Urine WBC (0-5) /HPF Ur Squamous Epith Cells (<= Few) Amorphous Sediment /LPF Urine Bacteria (None Seen) /HPF Ur Microscopic Review Urine Culture Comments Nasal Screen MRSA (PCR) (NEGATIVE) Blood Type Antibody Screen 02/16/19 02/16/19 02/16/19 Range/Units 14:45 14:45 14:45 WBC 10.8 (4.8-10.8) x10^3/uL RBC 3.39 L (4.20-5.40) 10^6/uL Hgb 9.4 L (12.0-16.0) g/dL Hct 30.0 L (37.0-47.0) % MCV 88.5 (81.0-99.0) fL MCH 27.8 (27.0-31.0) pg MCHC 31.4 L (32.0-36.0) g/dL RDW 18.2 H (12.0-15.0) % Plt Count 204 (130-450) 10^3/uL MPV 8.8 (7.9-10.8) fL Neut # (Auto) 8.7 H (1.5-6.6) 10^3/uL Lymph # (Auto) 0.9 L (1.5-3.5) 10^3/uL Graham # (Auto) 1.0 (0.0-1.0) 10^3/uL Eos # (Auto) 0.1 (0.0-0.7) 10^3/uL Baso # (Auto) 0.1 (0.0-0.1) 10^3/uL Absolute Nucleated RBC 0.00 x10^3/uL Nucleated RBC % 0.0 /100WBC PT (9.9-12.6) secs INR (0.8-1.2) D-Dimer (200.0-255.0) ng/mL Anti-Xa Level ( - 0.7) U/mL Bld Gas Analysis Time Sample Site ABG pH (7.35-7.45) ABG pCO2 (34-45) mmHg ABG pO2 (80-100) mmHg ABG HCO3 (22.0-26.0) mmol/L ABG Total CO2 (21.0-29.0) MMOL/L ABG O2 Saturation (94-98) % ABG Base Excess (-2.0-3.0) mmol/L Nelson Test VBG pH (7.31-7.41) Ionized Calcium (1.15-1.33) mmol/L O2 Delivery Device O2 Liters/Min LPM Sodium 135 (135-145) mmol/L Potassium 5.7 H (3.5-5.0) mmol/L Chloride 100 L (101-111) mmol/L Carbon Dioxide 26 (21-32) mmol/L Anion Gap 9.0 (6-13) BUN 52 H (6-20) mg/dL Creatinine 2.0 H (0.4-1.0) mg/dL Estimated GFR (MDRD) 24 L (>89) Glucose 293 H (70-100) mg/dL Glycated Hemoglobin (4.6-6.2) % Estim Average Glucose (70-100) Lactic Acid (0.5-2.2) mmol/L Calcium 8.6 (8.5-10.3) mg/dL Phosphorus (2.5-4.6) mg/dL Magnesium (1.7-2.8) mg/dL Total Bilirubin 0.2 (0.2-1.0) mg/dL AST 14 (10-42) IU/L ALT < 10 L (10-60) IU/L Alkaline Phosphatase 71 (42-121) IU/L Troponin I 0.05 (<0.49) ng/mL B-Natriuretic Peptide (5-100) pg/mL Total Protein 7.1 (6.7-8.2) g/dL Albumin 3.5 (3.2-5.5) g/dL Globulin 3.6 (2.1-4.2) g/dL Albumin/Globulin Ratio 1.0 (1.0-2.2) Lipase 25 (22-51) U/L Urine Color Urine Clarity (CLEAR) Urine pH (5.0-7.5) PH Ur Specific [place] (1.002-1.030) Urine Protein (NEGATIVE) mg/dL Urine Glucose (UA) (NEGATIVE) mg/dL Urine Ketones (NEGATIVE) mg/dL Urine Occult Blood (NEGATIVE) Urine Nitrite (NEGATIVE) Urine Bilirubin (NEGATIVE) Urine Urobilinogen (NORMAL) E.U./dL Ur Leukocyte Esterase (NEGATIVE) Urine RBC (0-5) /HPF Urine WBC (0-5) /HPF Ur Squamous Epith Cells (<= Few) Amorphous Sediment /LPF Urine Bacteria (None Seen) /HPF Ur Microscopic Review Urine Culture Comments Nasal Screen MRSA (PCR) (NEGATIVE) Blood Type Antibody Screen Sepsis Event Note (H) - Evaluation Current Stage of Sepsis: Septic shock Possible source of Sepsis: positive: Pulmonary, Genitourinary (from indwelling fole pesent on admission) - Sepsis Criteria Sepsis Criteria: Recorded Temperature greater than 38.3C or Less than 36C, Recorded Heart Rate greater than 90 bpm, Recorded Respiratory Rate greater than 20, Respiratory: Increasing oxygen requirements, [employer]: altered consciousness (unrelated to primary neuro pathology), SBP drop more than 40mHg, Metabolic: lactate > 2 mmol/L Assessment/Plan - Problem List (1) Septic shock Impression: with metabolic encephalopathy. Present on admission. The encephalopathy has resolved. Presents rather sudden onset 02/16 after being somewhat tired and more sleepy than ususal 02/15. She has been doing well at home since discharge from SNF and had a UTI earlier this month but today's episode appears to be associated with a lung infiltrate according to radiology and and ER doctor. UA has abnormal constituents but not many WBC. Since she has an indwelling roldan, this may be simple contamination/colonization. She was requiring quite a bit of oxygen at 10 liters in ED. After admission to the hospital and placement in ICU, she went into shock last night. Dropped her pressures again. Required Levophed. Still in the same antibiotics. Lactic acid went up to 2.1 in spite of previous fluid resuscitation and antibiotics. Overnight she has improved. Her Levophed is down to 4 mcg this morning. She is sitting up in bed, eating breakfast, and alert. Plan: ICU with acute inpatient stay, Day #2 ICU Change antibiotics on the basis of cultures they become positive. So far her urine is showing GNR and blood is not ready for review. Sepsis 3-hour bundle already ordered in the ER, followed by sepsis 6-hour bundle in the ICU Qualifiers: Sepsis type: sepsis due to unspecified organism Qualified Code(s): A41.9 - Sepsis, unspecified organism (2) Acute repiratory failure with hypoxia. Resolved. Present on admission. On admission we felt it was pneumonia but she does have CHF in her history with an EF of 45%. . The thought of PE was also added last night but she has been anticoagulated prior to admission and her DDimer was <300. With stabilization of her shock, her O2 requirements went from 10 liters by oxymizer mask to 2 liters nasal canula this morning. (3) Pneumonia Conclusion/Plan: This is pneumonia in a patient who is been in the hospital on a monthly basis since November. Also in a long-term care facility. Will treat with empiric sepsis protocol for pneumonia which include cefepime and vancomycin. Blood cultures have been submitted, urine cultures have been submitted. Use albuterol as needed, oxygen as needed as well. Qualifiers: Pneumonia type: due to unspecified organism Laterality: bilateral Lung location: lower lobe of lung Qualified Code(s): J18.1 - Lobar pneumonia, unspecified organism (4) Indwelling catheter present on admission Conclusion/Plan: noted. Family still wants it in. (5) Acute worsening of stage 3 chronic kidney disease Conclusion/Plan: Her lowest creatinine with her hospitalizations appears to be 1.1. At discharge she was 1.3 with her last admission and with this admission, she is 2. Abrupt rise in creatinine could be due to septic hypotension, low flow from CHF as well as dehydration. Today BUN 55 and Creat 2.1. Worse than yesterday, last night's hypotension shold have caused prerenal azotemia. Plan: IVF monitor creat daily avoid nephrotoxic agents when possible and monitor vancomycin carefully (6) Iron deficiency anemia Conclusion/Plan: seen with 11/2018 and 12/2018 admits. Both confirm low iron. [place] to be from anemia of chronic disease. May be from lack of nutiritonal intake. No GI bleed per history. Plan: IV iron supplement while here. REview old records for EGD and scope hx. Transfuse if < 8 grams of Hgb Qualifiers: Iron deficiency anemia type: unspecified iron deficiency Qualified Code(s): D50.9 - Iron deficiency anemia, unspecified (7) Elevated troponin Conclusion/Plan: On admission she was 0.05> 0.29>0.30 >0.36 this am. EKG without acute ST changes. this is most likely from demand ischemia due to hypotension and not an NSTEMI (8) Chronic systolic congestive heart failure, NYHA class 3 Conclusion/Plan: She has documented low EF. She is getting aggressive IVF resuscitation in face of sepsis. Will diurese when necessary. Right now holding off on giving ERIC, her diuretics while hypotensive. Will give her betablocker to avoid tachycardia. Recheck limited ECHO LV (9) Type 2 diabetes mellitus with hyperglycemia, with long-term current use of insulin Conclusion/Plan: Start Insulin eating protocol. Yesterday she was 243, 223, and this morning she is 200. We will increase Lantus from 10 units to 12 units (10) Difficult intravenous access Conclusion/Plan: Nursing identified that she needed more lines. I have ordered 2 IV's but she is difficult stick. Last visits needed central Line. Anesthesia came in last night and placed a PICC. (11) Decubitus ulcer, buttock, Stage II Conclusion/Plan: bilateral and present on admission. She spends a of of time sitting. Family does try to get her up but difficult. ICU nurse to document. Simple barrier cream as treatment for now. Qualifiers: Pressure injury stage: stage 1
[2019-02-17] MEDS ORDERED: FERRIC GLUCONATE 62.5 MG/5 ML VIAL IVP ONE (11:08)
[2019-02-17] MEDS ORDERED: FERRIC GLUCONATE 125 MG in SODIUM CHLORIDE 0.9% 100ML 100 ML IV ONE (12:30)
[2019-02-17] MEDS: SODIUM CHLORIDE FLUSH 0.9% 10 ML SYRINGE IVP SCH ×3 (13:01→21:37)
[2019-02-17] MEDS: NYSTATIN POWDER 15 GM TOP SCH ×2 (13:01→21:25)
[2019-02-17] MEDS ORDERED: RIVAROXABAN 15 MG TABLET PO SCH (17:00)
[2019-02-17] MEDS: VANCOMYCIN INJ 1 GM, VANCOMYCIN INJ 500 MG in SODIUM CHLORIDE 0.9% 500 ML IV SCH (17:49)
[2019-02-17] MEDS: IBUPROFEN 400 MG TABLET PO SCH (18:57)
[2019-02-17] MEDS ORDERED: IBUPROFEN 100 MG/5 ML UDC PO SCH (19:00)
[2019-02-17] MEDS ORDERED: CALAMINE/ZINC OXIDE 118 ML BOTTLE TOP PRN (20:06)
[2019-02-17] MEDS: INSULIN GLARGINE 300 UNIT/3 ML PEN SUBQ SCH (21:20)
[2019-02-18] MEDS: IBUPROFEN 400 MG TABLET PO SCH ×5 (01:20→23:31)
[2019-02-18] MEDS: ZINC OXIDE 20% OINT 28.35 GM TUBE TOP PRN ×3 (02:44→19:30)
[2019-02-18] MEDS: oxyCODONE 5 MG TABLET PO PRN ×2 (04:54→13:59)
[2019-02-18 05:00] LABS: HGB - HEMOGLOBIN 8.8 g/dL (12.0-16.0); MEAN CORPUSCULAR HEMOGLOBIN 27.4 pg (27.0-31.0); MEAN CORPUSCULAR HGB CONC 30.9 g/dL (32.0-36.0); MEAN CORPUSCULAR VOLUME 88.6 fL (81.0-99.0); MEAN PLATELET VOLUME 8.4 fL (7.9-10.8); RED BLOOD COUNT 3.19 10^6/uL (4.20-5.40); RED CELL DISTRIBUTION WIDTH 18.1 % (12.0-15.0); WHITE BLOOD COUNT 8.4 x10^3/uL (4.8-10.8)
[2019-02-18 05:01] LABS: VBG PH 7.329 (7.31-7.41)
[2019-02-18 05:08] LABS: ALBUMIN 2.9 g/dL (3.2-5.5); CALCIUM 8.4 mg/dL (8.5-10.3); CREATININE 1.7 mg/dL (0.4-1.0); MAGNESIUM 1.6 mg/dL (1.7-2.8); PHOSPHORUS 3.5 mg/dL (2.5-4.6)
[2019-02-18] MEDS ORDERED: MAGNESIUM SULFATE 2 GRAM 2 GM/50 ML BAG IV ONE (05:52)
[2019-02-18] MEDS: LEVOTHYROXINE 75 MCG TABLET PO SCH (06:05)
[2019-02-18] MEDS ORDERED: ACETAMINOPHEN 325 MG TABLET PO PRN (07:23)
--- NOTE | 2019-02-18 07:37 | PROVIDER PROGRESS NOTE ---
Assessment/Plan - Problem List (1) Septic shock Assessment/Plan: Her BP has improved with the fluids and Levophed that were started yesterday. She also reports that she runs a "low BP". Will wean Levophed to off today, keeping mean BP > 65. The underlying source, her UTI, is being treated with iv antibiotics. Follow WBC daily; it is already improving. (2) UTI (urinary tract infection) Qualifiers: Urinary tract infection type: catheter-associated UTI Indwelling urinary catheter type: indwelling urethral catheter Encounter type: initial encounter Qualified Code(s): T83.511A - Infection and inflammatory reaction due to indwelling urethral catheter, initial encounter; N39.0 - Urinary tract infection, site not specified Assessment/Plan: The urine culture just turned positive for ESBL-producing Klebsiella pneumoniae. She has had several recent hospitalizations and antibiotics dosed, and an indwelling Blanco, making her predisposed to ESBL-producing organisms. The blood cultures are neg to date. She is currently on empiric Cefepime, which would be expected to cover the Klebsiella species, but may not cover ESBL-producing Klebsiella. Will therefore change to Meropenem iv treatment. Await final culture and sensitivity. (3) Infection due to ESBL-producing Klebsiella pneumoniae Assessment/Plan: As in #2 above. (4) Acute non-ST elevation myocardial infarction (NSTEMI) Assessment/Plan: EKG today shows new changes>> there are new ST elevations in leads V1 and V2, and new biphasic T waves in leads V1-V3. Troponin did rise and more than doubled, although the total is not high (.05 >> .29 >> .30 >> .36 >> .41 >> .23) The Echo did show new regional wall motion abnormalities. She was started on iv Heparin at 0100 on 02/17/19. B-israel and Nitrates have been on hold due to hypotension. Will stop the Heparin later today (she will have had approx 40 hours of tr eatment) and resume her Xarelto (which she was on for TIA, according to records). If the iv Levophed can be weaned to off, keeping the MAP > 65, will slowly restart her beta-israel and nitrates back up. Continue statin. Will add daily baby ASA. (5) V-tach Assessment/Plan: At 2251 of 02/17/19, she had a 14-beat run of monomrphic VT. This is likely due to the acute NSTEMI and ventricular irritability, but will check K and Mg levels today>> K was 5.1 (decreasedfrom 5.7 earlier this admission) and Mg was indeed low at 1.6 yesterday and today. Will replace Mg and monitor serum level. (6) Diabetes mellitus type 2 in obese Assessment/Plan: Carb-controlled diet, ss Insulin continue. Will add nutritional Insulin doses for glu > 200. (7) COPD (chronic obstructive pulmonary disease) Assessment/Plan: No wheezing or COPD exacerbation currently. The Echo does show pulmonary HTN with PA press of 62 mmHg. She is ordered to be on prn nebs and is on supplemental oxygen. (8) Anemia Assessment/Plan: This is likely due to hemodilution and any preceding cause. Will check a B12, folate level and iron panel. Replace if low (9) CKD stage 3 secondary to diabetes Assessment/Plan: Slowly improving creat, on iv hydration. Monitor BMP daily. (10) Indwelling catheter present on admission Assessment/Plan: The family requested for this to stay in, according to the records. - Current Meds Current Meds: Current Medications Generic Name Dose Route Start Last Admin Trade Name Freq PRN Reason Stop Dose Admin Atorvastatin Calcium 40 mg 02/17/19 09:00 02/17/19 08:39 Lipitor PO 40 mg DAILY PERNELL Administration Ferrous Sulfate 325 mg 02/17/19 09:00 02/17/19 08:39 Feosol PO 325 mg DAILY PERNELL Administration Cefepime HCl 2 gm/ Sodium 100 mls @ 200 mls/hr 02/16/19 19:00 02/17/19 20:39 Chloride IV Infused Q12H PERNELL Infusion Norepinephrine Bitartrate 8 mg 250 mls @ 15 mls/hr 02/16/19 23:00 02/18/19 06:05 / Dextrose IV 4 mcg/min .[id number] PERNELL 7.5 mls/hr Titration Protocol 8 MCG/MIN Heparin Sodium/Dextrose 25,000 unit in 500 mls @ 27.36 mls/hr 02/17/19 01:00 02/17/19 21:08 IV 02/18/19 17:00 10 unit/kg/hr .[id number] PERNELL 22.8 mls/hr Administration Protocol 12 UNIT/KG/HR Vancomycin HCl 1 gm/ 500 mls @ 250 mls/hr 02/17/19 18:00 02/17/19 19:49 Vancomycin HCl 500 mg/ Sodium IV Infused Chloride Q24H PERNELL Infusion Ibuprofen 400 mg 02/17/19 18:55 02/18/19 06:04 Motrin PO 400 mg Q6HR PERNELL Administration Insulin Glargine 12 unit 02/17/19 21:00 02/17/19 21:20 Lantus Solostar SUBQ 12 unit QPM PERNELL Administration Levothyroxine Sodium 150 mcg 02/17/19 07:00 02/18/19 06:05 Synthroid PO 150 mcg QDAC PERNELL Administration Mineral Oil 1 applic 02/16/19 21:40 02/17/19 00:20 Cavilon TOP 1 applic PRN PRN Administration Skin Care Morphine Sulfate 2 mg 02/16/19 17:16 02/17/19 07:50 Morphine IVP 2 mg Q2H PRN Administration Pain 8 to 10 Multi-Ingredient Ointment 1 applic 02/18/19 01:19 02/18/19 02:44 Zinc Oxide TOP 1 applic PRN PRN Administration Skin Care Nystatin 1 applic 02/16/19 21:00 02/17/19 21:25 Nystop TOP 1 applic BID PERNELL Administration Oxycodone HCl 5 mg 02/16/19 17:16 02/18/19 04:54 Roxicodone PO 5 mg Q4HR PRN Administration Pain 5 to 7 Polyethylene Glycol 17 gm 02/17/19 09:00 02/17/19 08:40 Miralax PO 17 gm DAILY PERNELL Administration Sodium Chloride 10 ml 02/16/19 17:16 02/17/19 06:30 Normal Saline Flush 0.9% IVP 10 ml PRN PRN Administration NEEDED PER PROVIDER ORDERS Sodium Chloride 10 ml 02/17/19 01:00 02/17/19 21:37 Normal Saline Flush 0.9% IVP Not Given 0100,0900,1700 PERNELL - Lab Result Fish Bone Diagrams: 02/18/19 04:47 02/18/19 04:47 - EKG Results EKG Interpreted Independently: Yes EKG Comparison: Changed from prior EKG EKG Findings: NSR, rate 61, minimal ST elevation with biphasic T waves V1-V3 and flattened T waves V4-V6. ST and T wave changes are new since EKG from 02/16/19. - Additional Planning My Orders: My Active Orders 02/18/19 05:00 BNP - B-NATRIURETIC PEPTIDE [IAI] Routine 02/18/19 07:23 Acetaminophen [Tylenol] 650 mg PO Q4HR PRN 02/18/19 07:24 Miscellaenous Nursing Order [RC] ONCE 02/18/19 07:25 EKG - Electrocardiogram [RC] .ONCE 02/18/19 17:00 Rivaroxaban [Xarelto] 15 mg PO 1700 Subjective - Subjective Patient Reports: Feeling Better, Resting Comfortably, No Complaints Nursing Reports: No Complaints Objective Vital Signs: Vital Signs - 24 hr 02/17/19 02/17/19 02/17/19 07:38 07:49 08:00 Temperature 36.4 C L 37.6 C H Heart Rate 80 Heart Rate [ 81 89 Monitoring electrodes] Respiratory 17 20 17 Rate Blood Pressure 94/78 94/78 [Left Brachial artery] O2 Saturation 93 93 02/17/19 02/17/19 02/17/19 08:46 09:40 09:48 Temperature 37.8 C H Heart Rate Heart Rate [ 88 83 71 Monitoring electrodes] Respiratory 17 17 16 Rate Blood Pressure 135/47 H 121/49 L 101/36 L [Left Brachial artery] O2 Saturation 93 94 94 02/17/19 02/17/19 02/17/19 09:56 11:00 11:30 Temperature 37.8 C H 37.8 C H Heart Rate Heart Rate [ 70 62 62 Monitoring electrodes] Respiratory 17 23 15 Rate Blood Pressure 101/36 L 108/42 L 117/45 L [Left Brachial artery] O2 Saturation 94 85 L 94 02/17/19 02/17/19 02/17/19 11:52 13:00 13:54 Temperature 37.7 C H 37.4 C 37.5 C Heart Rate Heart Rate [ 59 L 90 88 Monitoring electrodes] Respiratory 16 15 16 Rate Blood Pressure 113/42 L 132/59 H 136/63 H [Left Brachial artery] O2 Saturation 96 93 100 02/17/19 02/17/19 02/17/19 15:00 16:00 17:00 Temperature 37.7 C H 37.9 C H 37.9 C H Heart Rate Heart Rate [ 72 65 89 Monitoring electrodes] Respiratory 16 21 18 Rate Blood Pressure 136/67 H 147/61 H 130/58 L [Left Brachial artery] O2 Saturation 95 96 93 02/17/19 02/17/19 02/17/19 18:00 18:50 19:15 Temperature 37.8 C H 37.8 C H Heart Rate 100 Heart Rate [ 75 77 Monitoring electrodes] Respiratory 16 17 18 Rate Blood Pressure 128/55 L 119/51 L [Left Brachial artery] O2 Saturation 97 94 02/17/19 02/17/19 02/17/19 19:57 21:00 21:56 Temperature 37.8 C H 37.6 C H 37.7 C H Heart Rate Heart Rate [ 82 70 74 Monitoring electrodes] Respiratory 18 17 16 Rate Blood Pressure 108/65 160/57 H 130/52 L [Left Brachial artery] O2 Saturation 91 L 96 93 02/17/19 02/18/19 02/18/19 23:00 00:00 01:00 Temperature 37.3 C 37.1 C 37.1 C Heart Rate Heart Rate [ 64 58 L 57 L Monitoring electrodes] Respiratory 16 16 15 Rate Blood Pressure 102/47 L 137/61 H 122/58 L [Left Brachial artery] O2 Saturation 94 93 95 02/18/19 02/18/19 02/18/19 02:00 03:00 04:00 Temperature 36.9 C 37 C 37.1 C Heart Rate Heart Rate [ 67 59 L 59 L Monitoring electrodes] Respiratory 17 15 17 Rate Blood Pressure 121/61 131/51 H 134/55 H [Left Brachial artery] O2 Saturation 92 94 95 02/18/19 02/18/19 02/18/19 05:00 06:00 06:05 Temperature 37.2 C 37.2 C 37.2 C Heart Rate Heart Rate [ 74 59 L 60 Monitoring electrodes] Respiratory 16 15 14 Rate Blood Pressure 134/54 H 105/43 L 102/42 L [Left Brachial artery] O2 Saturation 95 95 94 02/18/19 02/18/19 02/18/19 06:10 06:30 07:00 Temperature 37.2 C 37.1 C 37.1 C Heart Rate Heart Rate [ 62 59 L 61 Monitoring electrodes] Respiratory 14 15 14 Rate Blood Pressure 98/45 L 105/46 L 106/52 L [Left Brachial artery] O2 Saturation 93 95 95 Oxygen O2 Source [Without Activity] Nasal cannula O2 Source Nasal cannula Oxygen Flow Rate 10 I&O (Last 24 Hrs): Intake and Output Totals x24h 02/16/19 02/17/19 02/18/19 23:59 23:59 23:59 Intake Total 2114.550 4665.931 66.442 Output Total 925 4180 1030 Balance 853.000 -69.069 -963.558 General: Alert, Oriented x3 HEENT: Mucous membr. moist/pink Neck: Supple, No JVD Neuro: Non Focal Cardiovascular: Regular rate, No murmurs Respiratory: No respiratory distress, Breath sounds nml Abdomen: Soft, Other (Obese with pannus) Extremities: No edema - Results Results: Laboratory Results WBC 8.4 x10^3/uL (4.8-10.8) 02/18/19 04:47 RBC 3.19 10^6/uL (4.20-5.40) L 02/18/19 04:47 Hgb 8.8 g/dL (12.0-16.0) L 02/18/19 04:47 Hct 28.3 % (37.0-47.0) L 02/18/19 04:47 MCV 88.6 fL (81.0-99.0) 02/18/19 04:47 MCH 27.4 pg (27.0-31.0) 02/18/19 04:47 MCHC 30.9 g/dL (32.0-36.0) L 02/18/19 04:47 RDW 18.1 % (12.0-15.0) H 02/18/19 04:47 Plt Count 189 10^3/uL (130-450) 02/18/19 04:47 MPV 8.4 fL (7.9-10.8) 02/18/19 04:47 Neut # (Auto) 8.7 10^3/uL (1.5-6.6) H 02/16/19 14:45 Lymph # (Auto) 0.9 10^3/uL (1.5-3.5) L 02/16/19 14:45 [place] # (Auto) 1.0 10^3/uL (0.0-1.0) 02/16/19 14:45 Eos # (Auto) 0.1 10^3/uL (0.0-0.7) 02/16/19 14:45 Baso # (Auto) 0.1 10^3/uL (0.0-0.1) 02/16/19 14:45 Absolute Nucleated RBC 0.00 x10^3/uL 02/16/19 14:45 Nucleated RBC % 0.0 /100WBC 02/16/19 14:45 PT 15.1 secs (9.9-12.6) H 02/16/19 14:45 INR 1.4 (0.8-1.2) H 02/16/19 14:45 D-Dimer 245.8 ng/mL (200.0-255.0) 02/16/19 14:45 Anti-Xa Level 0.3 U/mL (-0.7) 02/18/19 04:47 Bld Gas Analysis Time 1508 02/16/19 15:00 Sample Site LEFT RADIAL 02/16/19 15:00 ABG pH 7.31 (7.35-7.45) L 02/16/19 15:00 ABG pCO2 49 mmHg (34-45) H 02/16/19 15:00 ABG pO2 61 mmHg (80-100) L 02/16/19 15:00 ABG HCO3 24.2 mmol/L (22.0-26.0) 02/16/19 15:00 ABG Total CO2 25.7 MMOL/L (21.0-29.0) 02/16/19 15:00 ABG O2 Saturation 91 % (94-98) L 02/16/19 15:00 ABG Base Excess -2.3 mmol/L (-2.0-3.0) L 02/16/19 15:00 Nelson Test POSITIVE 02/16/19 15:00 VBG pH 7.329 (7.31-7.41) 02/18/19 04:47 Ionized Calcium 1.11 mmol/L (1.15-1.33) L 02/18/19 04:47 O2 Delivery Device NASAL CANNULA 02/16/19 15:00 O2 Liters/Min 5.00 LPM 02/16/19 15:00 Sodium 139 mmol/L (135-145) 02/18/19 04:47 Potassium 5.1 mmol/L (3.5-5.0) H 02/18/19 04:47 Chloride 106 mmol/L (101-111) 02/18/19 04:47 Carbon Dioxide 24 mmol/L (21-32) 02/18/19 04:47 Anion Gap 9.0 (6-13) 02/18/19 04:47 BUN 45 mg/dL (6-20) H 02/18/19 04:47 Creatinine 1.7 mg/dL (0.4-1.0) H 02/18/19 04:47 Estimated GFR (MDRD) 29 (>89) L 02/18/19 04:47 Glucose 203 mg/dL (70-100) H 02/18/19 04:47 Glycated Hemoglobin 6.9 % (4.6-6.2) H 02/16/19 20:45 Estim Average Glucose 151 (70-100) H 02/16/19 20:45 Lactic Acid 2.1 mmol/L (0.5-2.2) 02/16/19 22:40 Calcium 8.4 mg/dL (8.5-10.3) L 02/18/19 04:47 Phosphorus 3.5 mg/dL (2.5-4.6) 02/18/19 04:47 Magnesium 1.6 mg/dL (1.7-2.8) L 02/18/19 04:47 Total Bilirubin 0.2 mg/dL (0.2-1.0) 02/16/19 14:45 AST 14 IU/L (10-42) 02/16/19 14:45 ALT < 10 IU/L (10-60) L 02/16/19 14:45 Alkaline Phosphatase 71 IU/L (42-121) 02/16/19 14:45 Troponin I 0.23 ng/mL (<0.49) 02/18/19 04:47 B-Natriuretic Peptide 517 pg/mL (5-100) H 02/17/19 06:28 Total Protein 7.1 g/dL (6.7-8.2) 02/16/19 14:45 Albumin 2.9 g/dL (3.2-5.5) L 02/18/19 04:47 Globulin 3.6 g/dL (2.1-4.2) 02/16/19 14:45 Albumin/Globulin Ratio 1.0 (1.0-2.2) 02/16/19 14:45 Lipase 25 U/L (22-51) 02/16/19 14:45 Folate 22.24 ng/mL (5.90 - >24.8) 02/18/19 04:47 Urine Color LT. YELLOW 02/16/19 15:50 Urine Clarity HAZY (CLEAR) 02/16/19 15:50 Urine pH 5.5 PH (5.0-7.5) 02/16/19 15:50 Ur Specific [place] 1.010 (1.002-1.030) 02/16/19 15:50 Urine Protein NEGATIVE mg/dL (NEGATIVE) 02/16/19 15:50 Urine Glucose (UA) NEGATIVE mg/dL (NEGATIVE) 02/16/19 15:50 Urine Ketones NEGATIVE mg/dL (NEGATIVE) 02/16/19 15:50 Urine Occult Blood MODERATE (NEGATIVE) H 02/16/19 15:50 Urine Nitrite NEGATIVE (NEGATIVE) 02/16/19 15:50 Urine Bilirubin NEGATIVE (NEGATIVE) 02/16/19 15:50 Urine Urobilinogen 0.2 (NORMAL) E.U./dL (NORMAL) 02/16/19 15:50 Ur Leukocyte Esterase SMALL (NEGATIVE) H 02/16/19 15:50 Urine RBC 6-10 /HPF (0-5) H 02/16/19 15:50 Urine WBC 6-10 /HPF (0-5) H 02/16/19 15:50 Ur Squamous Epith Cells FEW Squamous (<= Few) 02/16/19 15:50 Amorphous Sediment Few /LPF 02/16/19 15:50 Urine Bacteria Few /HPF (None Seen) 02/16/19 15:50 Ur Microscopic Review INDICATED 02/16/19 15:50 Urine Culture Comments INDICATED 02/16/19 15:50 Nasal Screen MRSA (PCR) NEGATIVE (NEGATIVE) 02/16/19 18:20 Blood Type O POSITIVE 02/17/19 01:02 Blood Type Recheck O POSITIVE 02/17/19 06:28 Antibody Screen NEGATIVE 02/17/19 01:02 - Procedures Procedures: Procedures INSERTION OF INFUSION DEV INTO L SUBCLAV VEIN, PERC APPROACH (12/31/18) ULTRASONOGRAPHY OF RIGHT SUBCLAVIAN VEIN, GUIDANCE (12/31/18) Sepsis Event Note (H) - Evaluation Current Stage of Sepsis: Septic shock Possible source of Sepsis: positive: Pulmonary, Genitourinary (from indwelling fole pesent on admission) - Sepsis Criteria Sepsis Criteria: Recorded Temperature greater than 38.3C or Less than 36C, Recorded Heart Rate greater than 90 bpm, Recorded Respiratory Rate greater than 20, Respiratory: Increasing oxygen requirements, SERVICE MEMBER: altered consciousness (unrelated to primary neuro pathology), SBP drop more than 40mHg, Metabolic: lactate > 2 mmol/L
[2019-02-18] MEDS ORDERED: CALCIUM GLUCONATE 1,000 MG in SODIUM CHLORIDE 0.9% 50 ML IV ONE (08:00)
[2019-02-18] MEDS: CEFEPIME 2 GM in SODIUM CHLORIDE 0.9% MINIBAG 100 ML IV SCH (08:10)
[2019-02-18] MEDS: ATORVASTATIN 40 MG TABLET PO SCH (08:34)
[2019-02-18] MEDS: FERROUS SULFATE 325 MG TABLET PO SCH (08:34)
[2019-02-18] MEDS: INSULIN ASPART 300 UNIT/3 ML PEN SUBQ SCH ×7 (08:35→20:07)
[2019-02-18] MEDS: NYSTATIN POWDER 15 GM TOP SCH ×2 (08:35→20:02)
[2019-02-18] MEDS: POLYETHYLENE GLYCOL 3350 17 GM PACKET PO SCH (08:36)
[2019-02-18] MEDS: SODIUM CHLORIDE FLUSH 0.9% 10 ML SYRINGE IVP SCH ×3 (08:36→23:29)
[2019-02-18] MEDS ORDERED: NYSTATIN CREAM 15 GM TUBE TOP SCH (09:00)
[2019-02-18] MEDS: SODIUM CHLORIDE 0.9% 500 ML IV PRN (09:35)
[2019-02-18] MEDS: ASPIRIN EC 81 MG TABLET PO SCH (10:44)
[2019-02-18] MEDS: MEROPENEM 1 GM in SODIUM CHLORIDE 0.9% MINIBAG 100 ML IV SCH ×2 (11:30→23:29)
[2019-02-18] MEDS ORDERED: VANCOMYCIN 1 GM VIAL ONE (17:06)
[2019-02-18] MEDS ORDERED: SODIUM CHLORIDE 0.9% 2,000 ML IV ONE (17:06)
[2019-02-18] MEDS: RIVAROXABAN 15 MG TABLET PO SCH (17:13)
[2019-02-18] MEDS: VANCOMYCIN INJ 1 GM, VANCOMYCIN INJ 500 MG in SODIUM CHLORIDE 0.9% 500 ML IV SCH (17:57)
[2019-02-18] MEDS: MORPHINE 2 MG/ML SYRINGE IVP PRN (18:13)
[2019-02-18] MEDS: HEPARIN 25000UNITS/500ML (D5W) 25,000 UNIT/500 ML BAG IV SCH (18:26)
[2019-02-18] MEDS: INSULIN GLARGINE 300 UNIT/3 ML PEN SUBQ SCH ×2 (20:02→20:08)
[2019-02-19] MEDS: SODIUM CHLORIDE 0.9% 500 ML IV PRN (04:19)
[2019-02-19 04:37] LABS: VBG PH 7.254 (7.31-7.41)
[2019-02-19 04:51] LABS: BASOPHILS # (AUTO) 0.1 10^3/uL (0.0-0.1); BASOPHILS % (AUTO) 1.1 %; EOSINOPHILS # (AUTO) 0.3 10^3/uL (0.0-0.7); EOSINOPHILS % (AUTO) 3.4 %; HGB - HEMOGLOBIN 8.3 g/dL (12.0-16.0); LYMPHOCYTES # (AUTO) 1.3 10^3/uL (1.5-3.5); LYMPHOCYTES % (AUTO) 16.1 %; MEAN CORPUSCULAR HEMOGLOBIN 27.5 pg (27.0-31.0); MEAN CORPUSCULAR HGB CONC 31.1 g/dL (32.0-36.0); MEAN CORPUSCULAR VOLUME 88.4 fL (81.0-99.0); MEAN PLATELET VOLUME 8.3 fL (7.9-10.8); MONOCYTES # (AUTO) 1.1 10^3/uL (0.0-1.0); MONOCYTES % (AUTO) 13.3 %; NEUTROPHILS # (AUTO) 5.3 10^3/uL (1.5-6.6); NEUTROPHILS % (AUTO) 66.1 %; PLT - PLATELET COUNT 211 10^3/uL (130-450); RED BLOOD COUNT 3.02 10^6/uL (4.20-5.40); RED CELL DISTRIBUTION WIDTH 18.6 % (12.0-15.0); WHITE BLOOD COUNT 7.9 x10^3/uL (4.8-10.8)
[2019-02-19 04:56] LABS: CALCIUM 8.5 mg/dL (8.5-10.3); CREATININE 1.9 mg/dL (0.4-1.0); MAGNESIUM 1.8 mg/dL (1.7-2.8)
[2019-02-19] MEDS: IBUPROFEN 400 MG TABLET PO SCH ×4 (06:15→23:23)
[2019-02-19] MEDS: LEVOTHYROXINE 75 MCG TABLET PO SCH (06:15)
--- NOTE | 2019-02-19 07:43 | PROVIDER PROGRESS NOTE ---
Assessment/Plan - Problem List (1) Septic shock Assessment/Plan: Patient again was hypotensive overnight and Levophed was restarted. This a.m. BP is 124 systolic. Will wean iv Levophed to off. Will start iv saline. Will check for hypothyroid (?adequate Synthroid dose). Since she told us she normally runs a low BP, will likely accept BPs in the 90's, check orthostatic VS in case she needs Midodrine, and plan to transfer out of ICU later today, to start PT. Will add REAGAN hose, which may help with low BPs. (2) Urinary tract infection due to ESBL Klebsiella Assessment/Plan: The culture and sensitivities are available and it is sensitive to Carbepenams. Meropenem was started yesterday. Will continue with 2-3 days of iv antibiotics planned, then transition to po antibiotics. Will stop Vanco. If this Blanco has not been changed out, will replace. Will image abdomen for pyelo or stones to determine duration of antibiotic treatment. (3) Acute non-ST elevation myocardial infarction (NSTEMI) Assessment/Plan: Continue with medical management, no invasive cath planned, per her request, plus renal failure. She is on daily Aspirin and a statin, but not a B-israel or ERIC due to hypotension. Will recheck a CXR, as yesterday's CXR described mild CHF. If she needs Lasix or Spironolactone, that will be problematic to use in a patient with CKD, and likely cardio-renal syndrome. Will start a very low dose of Coreg. If BP or COPD does not tolerate it, then very low dose Metoprolol. (4) CHF (congestive heart failure) Qualifiers: Heart failure type: diastolic Assessment/Plan: She had a Hx of NV earlier this year, and her LVEF was 45% on previous Echo. This admission, despite the presence of regional wall motion abnormalities by Echo, her systolic function was normal, but she has diastolic dysfunction, grade II. Will start a low dose of B-israel, once the Levophed is finished. Will order daily wights, daily CXR and monitor BNP daily as her iv fluids and BP meds are changed. (5) Acute on chronic renal failure Assessment/Plan: Her creat again farshad to 1.9 today, after improving since admission with better BP. She may need Midodrine to maintain a head of pressure for renal perfusion. Will try gentle iv hydration, watching for worsening CHF. (6) Hyperkalemia Assessment/Plan: Her serum K changes parallel her CKD. She may need Kayexelate. Monitor BMP daily or bid. (7) Diabetes mellitus type 2 in obese Assessment/Plan: She is on a carb-controlled diet w/ nutritional Insulin plus sliding scale Insulin. (8) COPD (chronic obstructive pulmonary disease) Assessment/Plan: Stable, no wheezing, but she remains on O2 at 2L n.c. (9) Anemia Qualifiers: Anemia type: iron deficiency Assessment/Plan: B12 and Folate levels were adequate, Iron panel showed low Fe stores. She already got 1 dose of iv Iron and is on po Iron. If Hgb drops lower, she may need a transfusion. Monitor CBC daily. (10) Indwelling catheter present on admission Assessment/Plan: According to the record, the family requested that this remain in place, since her mobility is impaired and bathrooming is difficult. Also, she needs healing of the stage 2 decubitus ulcer. (11) Decubitus ulcer, buttock Qualifiers: Pressure injury stage: stage 2 Assessment/Plan: Turning, reporsitioning, barrier creams are all ordered. Will advance PT, to get her OOB more. (12) Hypothyroidism Assessment/Plan: She is on Synthroid replacement. TSH ordered to assess if dose is adequate. (13) Hx of transient ischemic attack (TIA) Assessment/Plan: For this reason she is on Xarelto. Will order a stool guiac, since she is low in Iron. (14) Chronic pain Assessment/Plan: She is requiring Motrin and Oxicodne, plus prn Morphine. Will add Pepcid for GI bleed prophylaxis, since she is also on Xarelto. (15) V-tach Assessment/Plan: No further VTach on telemetry. Mg is normal today and K has not been low. The B-israel will be started, when Levophed is off. Continue telemetry. - Current Meds Current Meds: Current Medications Generic Name Dose Route Start Last Admin Trade Name Freq PRN Reason Stop Dose Admin Aspirin 81 mg 02/18/19 10:00 02/18/19 10:44 Ecotrin PO 81 mg DAILY PERNELL Administration Atorvastatin Calcium 40 mg 02/17/19 09:00 02/18/19 08:34 Lipitor PO 40 mg DAILY PERNELL Administration Ferrous Sulfate 325 mg 02/17/19 09:00 02/18/19 08:34 Feosol PO 325 mg DAILY PERNELL Administration Norepinephrine Bitartrate 8 mg 250 mls @ 15 mls/hr 02/16/19 23:00 02/19/19 06:00 / Dextrose IV 6 mcg/min .[id number] PERNELL 11.25 mls/hr Titration Protocol 8 MCG/MIN Sodium Chloride 500 mls @ 0 mls/hr 02/18/19 08:44 02/19/19 06:00 Normal Saline 0.9% IV 30 mls/hr Q24H PRN Infusion TKO RATE TKO Meropenem 1 gm/ Sodium 100 mls @ 200 mls/hr 02/18/19 11:00 02/19/19 00:05 Chloride IV Infused Q12H PERNELL Infusion Ibuprofen 400 mg 02/17/19 18:55 02/19/19 06:15 Motrin PO 400 mg Q6HR PERNELL Administration Insulin Aspart 2 - 10 unit 02/18/19 08:00 02/18/19 20:07 Novolog SUBQ 2 unit 0800,1200,1700,2100 PERNELL Administration Protocol Insulin Aspart 3 unit 02/18/19 12:00 02/18/19 17:12 Novolog SUBQ 3 unit TIDWM PERNELL Administration Protocol Insulin Glargine 12 unit 02/17/19 21:00 02/18/19 20:08 Lantus Solostar SUBQ 12 unit QPM PERNELL Administration Levothyroxine Sodium 150 mcg 02/17/19 07:00 02/19/19 06:15 Synthroid PO 150 mcg QDAC PERNELL Administration Mineral Oil 1 applic 02/16/19 21:40 02/17/19 00:20 Cavilon TOP 1 applic PRN PRN Administration Skin Care Morphine Sulfate 2 mg 02/16/19 17:16 02/18/19 18:13 Morphine IVP 2 mg Q2H PRN Administration Pain 8 to 10 Multi-Ingredient Ointment 1 applic 02/18/19 01:19 02/18/19 19:30 Zinc Oxide TOP 1 applic PRN PRN Administration Skin Care Nystatin 1 applic 02/16/19 21:00 02/18/19 20:02 Nystop TOP 1 applic BID PERNELL Administration Oxycodone HCl 5 mg 02/16/19 17:16 02/18/19 13:59 Roxicodone PO 5 mg Q4HR PRN Administration Pain 5 to 7 Polyethylene Glycol 17 gm 02/17/19 09:00 02/18/19 08:36 Miralax PO 17 gm DAILY PERNELL Administration Rivaroxaban 15 mg 02/18/19 17:00 02/18/19 17:13 Xarelto PO 15 mg 1700 PERNELL Administration Sodium Chloride 10 ml 02/16/19 17:16 02/17/19 06:30 Normal Saline Flush 0.9% IVP 10 ml PRN PRN Administration NEEDED PER PROVIDER ORDERS Sodium Chloride 10 ml 02/17/19 01:00 02/18/19 23:29 Normal Saline Flush 0.9% IVP 10 ml 0100,0900,1700 PERNELL Administration Sodium Chloride 20 ml 02/16/19 21:39 02/19/19 04:27 Normal Saline Flush 0.9% IVP 20 ml PRN PRN Administration After Blood Draw - Lab Result Fish Bone Diagrams: 02/19/19 04:00 02/19/19 04:00 - Additional Planning My Orders: My Active Orders 02/18/19 07:23 Acetaminophen [Tylenol] 650 mg PO Q4HR PRN 02/18/19 07:24 Miscellaenous Nursing Order [RC] ONCE 02/18/19 08:44 Sodium Chloride 0.9% [Normal Saline 0.9%] 500 ml IV Q24H 02/18/19 10:00 Aspirin EC [Ecotrin] 81 mg PO DAILY 02/18/19 11:00 Meropenem [Merrem] 1 gm Sodium Chloride 0.9% Minibag [Normal Saline 0.9% Minibag] 100 ml IV Q12H 02/18/19 12:00 Insulin Aspart [NovoLOG] 3 unit SUBQ TIDWM 02/18/19 17:00 Rivaroxaban [Xarelto] 15 mg PO 1700 02/19/19 05:00 TSH [THYROID STIMULATING HORMONE] [IAI] Routine 02/19/19 07:32 Miscellaenous Nursing Order [RC] ONCE 02/20/19 05:00 BMP - BASIC METABOLIC PANEL [CHEM] DAILYLAB CBC - COMP BLD CT W/AUTO DIFF [HEME] DAILYLAB 02/21/19 05:00 BMP - BASIC METABOLIC PANEL [CHEM] DAILYLAB CBC - COMP BLD CT W/AUTO DIFF [HEME] DAILYLAB Subjective - Subjective Patient Reports: Feeling Better, Resting Comfortably Objective Vital Signs: Vital Signs - 24 hr 02/18/19 02/18/19 02/18/19 08:00 08:35 08:40 Temperature 37.1 C Heart Rate [ 74 90 89 Monitoring electrodes] Respiratory 13 Rate Blood Pressure 116/74 138/57 H 144/64 H [Left Brachial artery] O2 Saturation 95 02/18/19 02/18/19 02/18/19 08:45 08:57 09:15 Temperature 37.1 C Heart Rate [ 80 78 87 Monitoring electrodes] Respiratory 15 Rate Blood Pressure 131/55 H 117/53 L 124/48 L [Left Brachial artery] O2 Saturation 94 02/18/19 02/18/19 02/18/19 09:30 09:40 09:45 Temperature Heart Rate [ 81 80 75 Monitoring electrodes] Respiratory Rate Blood Pressure 120/60 110/46 L 99/40 L [Left Brachial artery] O2 Saturation 02/18/19 02/18/19 02/18/19 09:50 09:55 10:00 Temperature 37.1 C Heart Rate [ 74 73 82 Monitoring electrodes] Respiratory 18 Rate Blood Pressure 98/40 L 101/85 H 120/50 L [Left Brachial artery] O2 Saturation 93 02/18/19 02/18/19 02/18/19 10:15 10:30 10:45 Temperature Heart Rate [ 69 64 78 Monitoring electrodes] Respiratory Rate Blood Pressure 115/44 L 106/46 L 116/62 [Left Brachial artery] O2 Saturation 02/18/19 02/18/19 02/18/19 10:49 11:46 11:55 Temperature 37.2 C 37.4 C Heart Rate [ 75 82 92 Monitoring electrodes] Respiratory 14 18 Rate Blood Pressure 116/62 131/55 H 149/75 H [Left Brachial artery] O2 Saturation 92 95 02/18/19 02/18/19 02/18/19 12:00 12:15 12:30 Temperature Heart Rate [ 88 83 86 Monitoring electrodes] Respiratory 18 Rate Blood Pressure 122/73 133/64 H 114/58 L [Left Brachial artery] O2 Saturation 95 02/18/19 02/18/19 02/18/19 13:00 13:59 15:00 Temperature 37.3 C 37.4 C 37.4 C Heart Rate [ 70 82 79 Monitoring electrodes] Respiratory 14 18 17 Rate Blood Pressure 112/55 L 112/55 L 119/56 L [Left Brachial artery] O2 Saturation 93 95 94 02/18/19 02/18/19 02/18/19 16:00 17:00 18:00 Temperature 37.4 C 37.3 C 37.4 C Heart Rate [ 76 91 87 Monitoring electrodes] Respiratory 14 20 23 Rate Blood Pressure 108/60 122/60 117/54 L [Left Brachial artery] O2 Saturation 94 96 95 02/18/19 02/18/19 02/18/19 19:00 20:00 21:02 Temperature 37.4 C 37.5 C Heart Rate [ 73 82 72 Monitoring electrodes] Respiratory 17 13 14 Rate Blood Pressure 109/36 L 120/60 101/39 L [Left Brachial artery] O2 Saturation 96 95 93 02/18/19 02/18/19 02/18/19 21:30 21:40 21:45 Temperature Heart Rate [ 68 67 67 Monitoring electrodes] Respiratory Rate Blood Pressure 85/34 L 98/39 L 95/33 L [Left Brachial artery] O2 Saturation 02/18/19 02/18/19 02/18/19 21:50 21:59 22:00 Temperature Heart Rate [ 65 67 Monitoring electrodes] Respiratory 17 Rate Blood Pressure 92/38 L 90/35 L [Left Brachial artery] O2 Saturation 92 94 02/18/19 02/18/19 02/18/19 22:05 22:10 22:15 Temperature Heart Rate [ 66 65 65 Monitoring electrodes] Respiratory Rate Blood Pressure 92/36 L 93/44 L 101/41 L [Left Brachial artery] O2 Saturation 02/18/19 02/18/19 02/18/19 22:30 22:45 23:00 Temperature Heart Rate [ 67 64 61 Monitoring electrodes] Respiratory 17 16 Rate Blood Pressure 97/39 L 108/40 L 100/39 L [Left Brachial artery] O2 Saturation 95 95 02/18/19 02/18/19 02/18/19 23:38 23:40 23:45 Temperature 37.3 C Heart Rate [ 69 64 62 Monitoring electrodes] Respiratory 19 Rate Blood Pressure 122/48 L 127/51 L 118/48 L [Left Brachial artery] O2 Saturation 96 02/18/19 02/19/19 02/19/19 23:50 00:00 00:15 Temperature Heart Rate [ 61 60 59 L Monitoring electrodes] Respiratory 17 Rate Blood Pressure 121/52 L 117/47 L 112/43 L [Left Brachial artery] O2 Saturation 98 02/19/19 02/19/19 02/19/19 00:30 01:00 02:00 Temperature 37.2 C Heart Rate [ 58 L 62 58 L Monitoring electrodes] Respiratory 16 18 Rate Blood Pressure 110/39 L 97/37 L 101/40 L [Left Brachial artery] O2 Saturation 97 95 02/19/19 02/19/19 02/19/19 03:00 04:00 05:00 Temperature 37 C Heart Rate [ 67 59 L 61 Monitoring electrodes] Respiratory 15 16 17 Rate Blood Pressure 113/42 L 119/38 L 126/67 [Left Brachial artery] O2 Saturation 95 96 97 02/19/19 02/19/19 06:00 07:00 Temperature Heart Rate [ 67 69 Monitoring electrodes] Respiratory 17 17 Rate Blood Pressure 111/38 L 124/44 L [Left Brachial artery] O2 Saturation 98 95 Oxygen O2 Source [Without Activity] Nasal cannula O2 Source Nasal cannula Oxygen Flow Rate 10 I&O (Last 24 Hrs): Intake and Output Totals x24h 02/17/19 02/18/19 02/19/19 23:59 23:59 23:59 Intake Total 4110.931 2804.979 470.00 Output Total 4180 2780 500 Balance -69.069 24.979 -30.00 General: Alert, Oriented x3 HEENT: Mucous membr. moist/pink, Other (Very plae) Neck: Supple, Other (Obese) Neuro: Alert, Non Focal Cardiovascular: Regular rate, No murmurs, Other (Distant heart sounds) Respiratory: Chest non-tender, No respiratory distress, Breath sounds nml Abdomen: Soft, Other (Obese with pannus) Genitourinary: Other (Blanco) Extremities: No edema - Results Results: Laboratory Results WBC 7.9 x10^3/uL (4.8-10.8) 02/19/19 04:00 RBC 3.02 10^6/uL (4.20-5.40) L 02/19/19 04:00 Hgb 8.3 g/dL (12.0-16.0) L 02/19/19 04:00 Hct 26.7 % (37.0-47.0) L 02/19/19 04:00 MCV 88.4 fL (81.0-99.0) 02/19/19 04:00 MCH 27.5 pg (27.0-31.0) 02/19/19 04:00 MCHC 31.1 g/dL (32.0-36.0) L 02/19/19 04:00 RDW 18.6 % (12.0-15.0) H 02/19/19 04:00 Plt Count 211 10^3/uL (130-450) 02/19/19 04:00 MPV 8.3 fL (7.9-10.8) 02/19/19 04:00 Neut # (Auto) 5.3 10^3/uL (1.5-6.6) 02/19/19 04:00 Lymph # (Auto) 1.3 10^3/uL (1.5-3.5) L 02/19/19 04:00 [place] # (Auto) 1.1 10^3/uL (0.0-1.0) H 02/19/19 04:00 Eos # (Auto) 0.3 10^3/uL (0.0-0.7) 02/19/19 04:00 Baso # (Auto) 0.1 10^3/uL (0.0-0.1) 02/19/19 04:00 Absolute Nucleated RBC 0.01 x10^3/uL 02/19/19 04:00 Nucleated RBC % 0.1 /100WBC 02/19/19 04:00 PT 15.1 secs (9.9-12.6) H 02/16/19 14:45 INR 1.4 (0.8-1.2) H 02/16/19 14:45 D-Dimer 245.8 ng/mL (200.0-255.0) 02/16/19 14:45 Anti-Xa Level 0.3 U/mL (-0.7) 02/18/19 04:47 Bld Gas Analysis Time 1508 02/16/19 15:00 Sample Site LEFT RADIAL 02/16/19 15:00 ABG pH 7.31 (7.35-7.45) L 02/16/19 15:00 ABG pCO2 49 mmHg (34-45) H 02/16/19 15:00 ABG pO2 61 mmHg (80-100) L 02/16/19 15:00 ABG HCO3 24.2 mmol/L (22.0-26.0) 02/16/19 15:00 ABG Total CO2 25.7 MMOL/L (21.0-29.0) 02/16/19 15:00 ABG O2 Saturation 91 % (94-98) L 02/16/19 15:00 ABG Base Excess -2.3 mmol/L (-2.0-3.0) L 02/16/19 15:00 Nelson Test POSITIVE 02/16/19 15:00 VBG pH 7.254 (7.31-7.41) L 02/19/19 04:00 Ionized Calcium 1.15 mmol/L (1.15-1.33) 02/19/19 04:00 O2 Delivery Device NASAL CANNULA 02/16/19 15:00 O2 Liters/Min 5.00 LPM 02/16/19 15:00 Sodium 141 mmol/L (135-145) 02/19/19 04:00 Potassium 5.4 mmol/L (3.5-5.0) H 02/19/19 04:00 Chloride 107 mmol/L (101-111) 02/19/19 04:00 Carbon Dioxide 23 mmol/L (21-32) 02/19/19 04:00 Anion Gap 11.0 (6-13) 02/19/19 04:00 BUN 40 mg/dL (6-20) H 02/19/19 04:00 Creatinine 1.9 mg/dL (0.4-1.0) H 02/19/19 04:00 Estimated GFR (MDRD) 26 (>89) L 02/19/19 04:00 Glucose 199 mg/dL (70-100) H 02/19/19 04:00 Glycated Hemoglobin 6.9 % (4.6-6.2) H 02/16/19 20:45 Estim Average Glucose 151 (70-100) H 02/16/19 20:45 Lactic Acid 2.1 mmol/L (0.5-2.2) 02/16/19 22:40 Calcium 8.5 mg/dL (8.5-10.3) 02/19/19 04:00 Phosphorus 3.5 mg/dL (2.5-4.6) 02/18/19 04:47 Magnesium 1.8 mg/dL (1.7-2.8) 02/19/19 04:00 Iron 42 ug/dL (28-170) 02/19/19 04:00 TIBC 249 ug/dL (250-450) L 02/19/19 04:00 % Saturation 17 % (20-50) L 02/19/19 04:00 Transferrin 178 mg/dL (192-382) L 02/19/19 04:00 Total Bilirubin 0.2 mg/dL (0.2-1.0) 02/16/19 14:45 AST 14 IU/L (10-42) 02/16/19 14:45 ALT < 10 IU/L (10-60) L 02/16/19 14:45 Alkaline Phosphatase 71 IU/L (42-121) 02/16/19 14:45 Troponin I 0.23 ng/mL (<0.49) 02/18/19 04:47 B-Natriuretic Peptide 426 pg/mL (5-100) H 02/18/19 04:47 Total Protein 7.1 g/dL (6.7-8.2) 02/16/19 14:45 Albumin 2.9 g/dL (3.2-5.5) L 02/18/19 04:47 Globulin 3.6 g/dL (2.1-4.2) 02/16/19 14:45 Albumin/Globulin Ratio 1.0 (1.0-2.2) 02/16/19 14:45 Lipase 25 U/L (22-51) 02/16/19 14:45 Vitamin B12 209 pg/mL (180-914) 02/19/19 04:00 Folate 22.24 ng/mL (5.90 - >24.8) 02/18/19 04:47 Urine Color LT. YELLOW 02/16/19 15:50 Urine Clarity HAZY (CLEAR) 02/16/19 15:50 Urine pH 5.5 PH (5.0-7.5) 02/16/19 15:50 Ur Specific [place] 1.010 (1.002-1.030) 02/16/19 15:50 Urine Protein NEGATIVE mg/dL (NEGATIVE) 02/16/19 15:50 Urine Glucose (UA) NEGATIVE mg/dL (NEGATIVE) 02/16/19 15:50 Urine Ketones NEGATIVE mg/dL (NEGATIVE) 02/16/19 15:50 Urine Occult Blood MODERATE (NEGATIVE) H 02/16/19 15:50 Urine Nitrite NEGATIVE (NEGATIVE) 02/16/19 15:50 Urine Bilirubin NEGATIVE (NEGATIVE) 02/16/19 15:50 Urine Urobilinogen 0.2 (NORMAL) E.U./dL (NORMAL) 02/16/19 15:50 Ur Leukocyte Esterase SMALL (NEGATIVE) H 02/16/19 15:50 Urine RBC 6-10 /HPF (0-5) H 02/16/19 15:50 Urine WBC 6-10 /HPF (0-5) H 02/16/19 15:50 Ur Squamous Epith Cells FEW Squamous (<= Few) 02/16/19 15:50 Amorphous Sediment Few /LPF 02/16/19 15:50 Urine Bacteria Few /HPF (None Seen) 02/16/19 15:50 Ur Microscopic Review INDICATED 02/16/19 15:50 Urine Culture Comments INDICATED 02/16/19 15:50 Nasal Screen MRSA (PCR) NEGATIVE (NEGATIVE) 02/16/19 18:20 Blood Type O POSITIVE 02/17/19 01:02 Blood Type Recheck O POSITIVE 02/17/19 06:28 Antibody Screen NEGATIVE 02/17/19 01:02 - Procedures Procedures: Procedures INSERTION OF INFUSION DEV INTO L SUBCLAV VEIN, PERC APPROACH (12/31/18) ULTRASONOGRAPHY OF RIGHT SUBCLAVIAN VEIN, GUIDANCE (12/31/18) Sepsis Event Note (H) - Evaluation Current Stage of Sepsis: Septic shock Possible source of Sepsis: positive: Pulmonary, Genitourinary (from indwelling fole pesent on admission) - Sepsis Criteria Sepsis Criteria: Recorded Temperature greater than 38.3C or Less than 36C, Recorded Heart Rate greater than 90 bpm, Recorded Respiratory Rate greater than 20, Respiratory: Increasing oxygen requirements, SPOT CLEANER: altered consciousness (unrelated to primary neuro pathology), SBP drop more than 40mHg, Metabolic: lactate > 2 mmol/L
[2019-02-19] MEDS: SODIUM CHLORIDE FLUSH 0.9% 10 ML SYRINGE IVP SCH ×3 (07:44→23:31)
[2019-02-19] MEDS: NYSTATIN POWDER 15 GM TOP SCH ×2 (08:05→21:29)
[2019-02-19] MEDS: ATORVASTATIN 40 MG TABLET PO SCH (08:05)
[2019-02-19] MEDS: FERROUS SULFATE 325 MG TABLET PO SCH (08:05)
[2019-02-19] MEDS: POLYETHYLENE GLYCOL 3350 17 GM PACKET PO SCH (08:05)
[2019-02-19] MEDS: ASPIRIN EC 81 MG TABLET PO SCH (08:05)
[2019-02-19] MEDS: INSULIN ASPART 300 UNIT/3 ML PEN SUBQ SCH ×7 (08:06→21:34)
[2019-02-19] MEDS: oxyCODONE 5 MG TABLET PO PRN ×2 (08:49→18:40)
[2019-02-19] MEDS: SODIUM CHLORIDE 0.9% 1,000 ML IV SCH (08:50)
[2019-02-19] MEDS: FAMOTIDINE 20 MG TABLET PO SCH ×2 (08:50→21:28)
--- NOTE | 2019-02-19 09:15 | XRAY Report ---
Reason: Eval for worsening CHF Procedure Date: 02/19/2019 Accession Number: [id number] / [id number] Procedure: XR - Chest 1 View X-Ray CPT Code: 63659 FULL RESULT: EXAM: CHEST RADIOGRAPHY EXAM DATE: 02/19/2019 08:18 AM. CLINICAL HISTORY: Evaluate for worsening CHF. COMPARISON: CHEST 1 VIEW 02/17/2019 7:19 AM. TECHNIQUE: 1 view. FINDINGS: Lungs/Pleura: There is prominence of perihilar vasculature with peribronchial cuffing as well as a small amount of fluid in the horizontal fissure. There is no overt interstitial pulmonary edema. No sizable pleural effusion or pneumothorax. Mediastinum: Accounting for differences in technique the cardiomediastinal silhouette including mild cardiomegaly is likely unchanged comparison limited by rotation. Other: Left PICC with tip in the region of the juncture of the brachiocephalic and superior vena cava region. IMPRESSION: Cardiomegaly and central vascular congestion with peribronchial cuffing are compatible congestive heart failure without overt pulmonary edema. RADIA
[2019-02-19] MEDS: CARVEDILOL 3.125 MG TABLET PO SCH ×2 (11:13→21:29)
[2019-02-19] MEDS: MEROPENEM 1 GM in SODIUM CHLORIDE 0.9% MINIBAG 100 ML IV SCH ×2 (11:13→23:23)
[2019-02-19 13:45] LABS: CALCIUM 8.3 mg/dL (8.5-10.3); CREATININE 1.8 mg/dL (0.4-1.0)
[2019-02-19] MEDS: SACCHAROMYCES BOULARDII 250 MG CAPSULE PO SCH (17:03)
[2019-02-19] MEDS: RIVAROXABAN 15 MG TABLET PO SCH (17:04)
[2019-02-19] MEDS: MULTIVITAMIN W/MINERALS TABLET PO SCH (17:04)
[2019-02-19] MEDS: MIDODRINE 2.5 MG TABLET PO SCH ×2 (17:04→21:29)
[2019-02-19] MEDS: INSULIN GLARGINE 300 UNIT/3 ML PEN SUBQ SCH (21:31)
[2019-02-20] MEDS: SODIUM CHLORIDE 0.9% 1,000 ML IV SCH (04:44)
[2019-02-20 05:10] LABS: BASOPHILS # (AUTO) 0.1 10^3/uL (0.0-0.1); BASOPHILS % (AUTO) 1.4 %; EOSINOPHILS # (AUTO) 0.2 10^3/uL (0.0-0.7); EOSINOPHILS % (AUTO) 3.3 %; HGB - HEMOGLOBIN 7.8 g/dL (12.0-16.0); LYMPHOCYTES # (AUTO) 1.5 10^3/uL (1.5-3.5); LYMPHOCYTES % (AUTO) 25.1 %; MEAN CORPUSCULAR HEMOGLOBIN 27.4 pg (27.0-31.0); MEAN CORPUSCULAR HGB CONC 30.5 g/dL (32.0-36.0); MEAN CORPUSCULAR VOLUME 90.1 fL (81.0-99.0); MEAN PLATELET VOLUME 8.4 fL (7.9-10.8); MONOCYTES # (AUTO) 0.5 10^3/uL (0.0-1.0); MONOCYTES % (AUTO) 9.3 %; NEUTROPHILS # (AUTO) 3.6 10^3/uL (1.5-6.6); NEUTROPHILS % (AUTO) 60.9 %; PLT - PLATELET COUNT 184 10^3/uL (130-450); RED BLOOD COUNT 2.83 10^6/uL (4.20-5.40); RED CELL DISTRIBUTION WIDTH 18.6 % (12.0-15.0); WHITE BLOOD COUNT 5.9 x10^3/uL (4.8-10.8)
[2019-02-20 05:29] LABS: CALCIUM 8.2 mg/dL (8.5-10.3); CREATININE 1.6 mg/dL (0.4-1.0); PHOSPHORUS 3.4 mg/dL (2.5-4.6)
[2019-02-20 05:36] LABS: DIFFERENTIAL COMMENT MANUAL=AUTO DIFF; PLATELET ESTIMATE, MANUAL NORMAL (130-450,000) (NORMAL); RBC MORPHOLOGY (MULTIPLE) NORMAL APPEARANCE (NORMAL)
[2019-02-20] MEDS: IBUPROFEN 400 MG TABLET PO SCH ×4 (06:11→23:28)
[2019-02-20] MEDS: LEVOTHYROXINE 75 MCG TABLET PO SCH (06:11)
[2019-02-20] MEDS: MIDODRINE 2.5 MG TABLET PO SCH ×3 (06:11→21:43)
[2019-02-20] MEDS: SODIUM CHLORIDE 0.9% 500 ML IV PRN (06:12)
[2019-02-20] MEDS: INSULIN ASPART 300 UNIT/3 ML PEN SUBQ SCH ×7 (08:07→21:44)
--- NOTE | 2019-02-20 08:07 | PROVIDER PROGRESS NOTE ---
Assessment/Plan - Problem List (1) Urinary tract infection due to ESBL Klebsiella Assessment/Plan: Today is Day#2 of Meropenem. Will plan 3 days of iv antibiotics, then change to Amox/Clav 875 po bid starting tomorrow. Will obtain abd/pelvis imaging, since she is now out of ICU and more stable, to assess for pyelo or obstruction, since this is her third admission in 3 mos of UTI with sepsis from UTI cause>>> the patient did not fit into the MRI tube. No CT can be done with her CKD. She should be seen by a Urologist dyue to the repeat UTIs and chronic indwelling Blanco. (2) Acute non-ST elevation myocardial infarction (NSTEMI) Assessment/Plan: Coreg was started yesterday at 3.125 mg po bid, due to low BP. Will try to titrate up to 6.25 bid. Midodrine tid had to be started yesterday due to low BP. Continue dailt baby ASA, statin. (3) CHF (congestive heart failure) Qualifiers: Heart failure type: diastolic Assessment/Plan: Despite LVEF of 55%, she needed alot of crystalloid hydration and did have some vascular congestion by CXR. Today, the CXE shows improvement in volume overload. Will try to wean off O2 by n.c. today if possible. Continue Coreg, titrating up if BP will tolerate. (4) Acute on chronic renal failure Assessment/Plan: Improved with better overall hemodynamics and fluid status. Monitor BMP daily. (5) Hyperkalemia Assessment/Plan: Improved without Kayexelate. Her serum K parallels her creat, which has improved for several days. (6) Diabetes mellitus type 2 in obese Assessment/Plan: Continue carb-controlled diet and nutritional plus ss Insulin (7) COPD (chronic obstructive pulmonary disease) Assessment/Plan: No sx. Will wean O2 to off if possible. (8) Anemia Qualifiers: Anemia type: iron deficiency Assessment/Plan: On oral Iron replacement. (9) Indwelling catheter present on admission Assessment/Plan: Continue chronic Blanco for now, for decubitus ulcer healing. She should have a Urologist. (10) Decubitus ulcer, buttock Qualifiers: Pressure injury stage: stage 2 Assessment/Plan: Continue to increase ambulation, and continue barrier creams. (11) Hypothyroidism Assessment/Plan: On replacement. (12) Hx of transient ischemic attack (TIA) Assessment/Plan: On Xarelto, as pre-hospitalization. (13) Chronic pain Assessment/Plan: Adequate pain control on present meds. Increase activity with PT and determine if she needs a SNF for PT rehab. (14) V-tach Assessment/Plan: Resolved. (15) Septic shock Assessment/Plan: Resolved - Current Meds Current Meds: Current Medications Generic Name Dose Route Start Last Admin Trade Name Cristian PRN Reason Stop Dose Admin Aspirin 81 mg 02/18/19 10:00 02/19/19 08:05 Ecotrin PO 81 mg DAILY PERNELL Administration Atorvastatin Calcium 40 mg 02/17/19 09:00 02/19/19 08:05 Lipitor PO 40 mg DAILY PERNELL Administration Carvedilol 3.125 mg 02/19/19 09:00 02/19/19 21:29 Coreg PO 02/20/19 12:00 3.125 mg BID PERNELL Administration Famotidine 10 mg 02/19/19 09:00 02/19/19 21:28 Pepcid PO 10 mg BID PERNELL Administration Ferrous Sulfate 325 mg 02/17/19 09:00 02/19/19 08:05 Feosol PO 325 mg DAILY PERNELL Administration Meropenem 1 gm/ Sodium 100 mls @ 200 mls/hr 02/18/19 11:00 02/19/19 23:55 Chloride IV 02/21/19 01:00 Infused Q12H PERNELL Infusion Sodium Chloride 1,000 mls @ 50 mls/hr 02/19/19 09:00 02/20/19 07:00 Normal Saline 0.9% IV 02/20/19 09:00 50 mls/hr .Q20H PERNELL Infusion Ibuprofen 400 mg 02/17/19 18:55 02/20/19 06:11 Motrin PO 400 mg Q6HR PERNELL Administration Insulin Aspart 2 - 10 unit 02/18/19 08:00 02/19/19 21:34 Novolog SUBQ 4 unit 0800,1200,1700,2100 PERNELL Administration Protocol Insulin Aspart 3 unit 02/18/19 12:00 02/19/19 17:08 Novolog SUBQ 3 unit TIDWM PERNELL Administration Protocol Insulin Glargine 12 unit 02/17/19 21:00 02/19/19 21:31 Lantus Solostar SUBQ 12 unit QPM PERNELL Administration Levothyroxine Sodium 150 mcg 02/17/19 07:00 02/20/19 06:11 Synthroid PO 150 mcg QDAC PERNELL Administration Midodrine 2.5 mg 02/19/19 17:00 02/20/19 06:11 PO 2.5 mg TID PERNELL Administration Mineral Oil 1 applic 02/16/19 21:40 02/17/19 00:20 Cavilon TOP 1 applic PRN PRN Administration Skin Care Morphine Sulfate 2 mg 02/16/19 17:16 02/18/19 18:13 Morphine IVP 2 mg Q2H PRN Administration Pain 8 to 10 Multi-Ingredient Ointment 1 applic 02/18/19 01:19 02/18/19 19:30 Zinc Oxide TOP 1 applic PRN PRN Administration Skin Care Multivitamins/Minerals 1 tab 02/19/19 17:00 02/19/19 17:04 Theragran M PO 1 tab DAILYWM PERNELL Administration Nystatin 1 applic 02/16/19 21:00 02/19/19 21:29 Nystop TOP 1 applic BID PERNELL Administration Oxycodone HCl 5 mg 02/16/19 17:16 02/19/19 18:40 Roxicodone PO 5 mg Q4HR PRN Administration Pain 5 to 7 Polyethylene Glycol 17 gm 02/17/19 09:00 02/19/19 08:05 Miralax PO 17 gm DAILY PERNELL Administration Rivaroxaban 15 mg 02/18/19 17:00 02/19/19 17:04 Xarelto PO 15 mg 1700 PERNELL Administration Saccharomyces Boulardii 250 mg 02/19/19 17:00 02/19/19 17:03 Florastor PO 250 mg BIDWM PERNELL Administration Sodium Chloride 10 ml 02/16/19 17:16 02/17/19 06:30 Normal Saline Flush 0.9% IVP 10 ml PRN PRN Administration NEEDED PER PROVIDER ORDERS Sodium Chloride 10 ml 02/17/19 01:00 02/19/19 23:31 Normal Saline Flush 0.9% IVP 10 ml 0100,0900,1700 PERNELL Administration - Lab Result Fish Bone Diagrams: 02/20/19 04:45 02/20/19 04:45 - Additional Planning My Orders: My Active Orders 02/19/19 07:32 Miscellaenous Nursing Order [RC] ONCE 02/19/19 07:58 Daily Weight [RC] 0600 02/19/19 08:35 REAGAN Oh [] QSHIFT 02/19/19 09:00 Carvedilol [Coreg] 3.125 mg PO BID Famotidine [Pepcid] 10 mg PO BID Sodium Chloride 0.9% [Normal Saline 0.9%] 1,000 ml IV 50 mls/hr 02/19/19 12:00 Postural [Vital Signs - Orthostatic] [RC] DAILY 02/19/19 17:00 Midodrine 2.5 mg PO TID Multivitamin W/Minerals [Theragran M] 1 tab PO DAILYWM Saccharomyces Boulardii [Florastor] 250 mg PO BIDWM 02/20/19 07:54 Miscellaenous Nursing Order [] ONCE 02/20/19 08:02 ABDOMEN WO [MRI] Routine 02/20/19 09:00 Chest 1 View X-Ray [XR] DAILY 02/20/19 21:00 Carvedilol [Coreg] 6.25 mg PO BID 02/21/19 05:00 BMP - BASIC METABOLIC PANEL [CHEM] DAILYLAB BNP - B-NATRIURETIC PEPTIDE [IAI] DAILYLAB CBC - COMP BLD CT W/AUTO DIFF [HEME] DAILYLAB 02/21/19 09:00 Amox/Clav 875/125 [Augmentin 875/125] 1 tab PO BID Subjective - Subjective Patient Reports: Resting Comfortably, No Complaints Nursing Reports: Other (Pt was able to stand and transfer to [facility], [place] for transport to [facility], VS were good.) Objective Vital Signs: Vital Signs - 24 hr 02/19/19 02/19/19 02/19/19 08:20 08:25 08:33 Temperature Heart Rate [ Activity] Heart Rate [ 104 H 89 84 Monitoring electrodes] Heart Rate [ Sitting (After 1 Minute)] Heart Rate [ Sitting] Heart Rate [ Standing (After 1 Minute)] Heart Rate [ Supine] Respiratory Rate Blood Pressure [Activity] Blood Pressure 159/67 H 133/94 H 131/60 H [Left Brachial artery] Blood Pressure [Sitting (After 1 Minute)] Blood Pressure [Sitting] Blood Pressure [Standing ( After 1 Minute) ] Blood Pressure [Supine] O2 Saturation 02/19/19 02/19/19 02/19/19 08:49 08:58 09:07 Temperature 37.3 C Heart Rate [ Activity] Heart Rate [ 85 85 80 Monitoring electrodes] Heart Rate [ Sitting (After 1 Minute)] Heart Rate [ Sitting] Heart Rate [ Standing (After 1 Minute)] Heart Rate [ Supine] Respiratory 18 Rate Blood Pressure [Activity] Blood Pressure 129/58 L 141/57 H 148/66 H [Left Brachial artery] Blood Pressure [Sitting (After 1 Minute)] Blood Pressure [Sitting] Blood Pressure [Standing ( After 1 Minute) ] Blood Pressure [Supine] O2 Saturation 95 02/19/19 02/19/19 02/19/19 09:12 09:19 09:23 Temperature Heart Rate [ Activity] Heart Rate [ 76 83 91 Monitoring electrodes] Heart Rate [ Sitting (After 1 Minute)] Heart Rate [ Sitting] Heart Rate [ Standing (After 1 Minute)] Heart Rate [ Supine] Respiratory Rate Blood Pressure [Activity] Blood Pressure 152/59 H 142/64 H 130/63 [Left Brachial artery] Blood Pressure [Sitting (After 1 Minute)] Blood Pressure [Sitting] Blood Pressure [Standing ( After 1 Minute) ] Blood Pressure [Supine] O2 Saturation 02/19/19 02/19/19 02/19/19 09:27 09:40 10:00 Temperature 37.2 C Heart Rate [ Activity] Heart Rate [ 90 92 81 Monitoring electrodes] Heart Rate [ Sitting (After 1 Minute)] Heart Rate [ Sitting] Heart Rate [ Standing (After 1 Minute)] Heart Rate [ Supine] Respiratory 17 Rate Blood Pressure [Activity] Blood Pressure 145/64 H 129/69 125/57 L [Left Brachial artery] Blood Pressure [Sitting (After 1 Minute)] Blood Pressure [Sitting] Blood Pressure [Standing ( After 1 Minute) ] Blood Pressure [Supine] O2 Saturation 93 02/19/19 02/19/19 02/19/19 10:34 11:00 11:21 Temperature 37.2 C Heart Rate [ Activity] Heart Rate [ 76 94 Monitoring electrodes] Heart Rate [ 115 H Sitting (After 1 Minute)] Heart Rate [ Sitting] Heart Rate [ 146 H Standing (After 1 Minute)] Heart Rate [ 90 Supine] Respiratory 16 Rate Blood Pressure [Activity] Blood Pressure 114/50 L 137/66 H [Left Brachial artery] Blood Pressure 158/86 H [Sitting (After 1 Minute)] Blood Pressure [Sitting] Blood Pressure 151/76 H [Standing ( After 1 Minute) ] Blood Pressure 138/69 H [Supine] O2 Saturation 94 02/19/19 02/19/19 02/19/19 12:00 13:00 13:40 Temperature 37.1 C Heart Rate [ 87 Activity] Heart Rate [ 104 H 69 Monitoring electrodes] Heart Rate [ Sitting (After 1 Minute)] Heart Rate [ 87 Sitting] Heart Rate [ Standing (After 1 Minute)] Heart Rate [ 64 Supine] Respiratory 25 H 14 Rate Blood Pressure 113/74 [Activity] Blood Pressure 117/70 103/49 L [Left Brachial artery] Blood Pressure [Sitting (After 1 Minute)] Blood Pressure 113/74 [Sitting] Blood Pressure [Standing ( After 1 Minute) ] Blood Pressure 105/59 L [Supine] O2 Saturation 94 91 L 02/19/19 02/19/19 02/19/19 14:00 15:00 16:00 Temperature 37.1 C 37.1 C 37.1 C Heart Rate [ Activity] Heart Rate [ 69 66 62 Monitoring electrodes] Heart Rate [ Sitting (After 1 Minute)] Heart Rate [ Sitting] Heart Rate [ Standing (After 1 Minute)] Heart Rate [ Supine] Respiratory 18 15 15 Rate Blood Pressure [Activity] Blood Pressure 134/61 H 100/44 L 86/46 L [Left Brachial artery] Blood Pressure [Sitting (After 1 Minute)] Blood Pressure [Sitting] Blood Pressure [Standing ( After 1 Minute) ] Blood Pressure [Supine] O2 Saturation 96 94 94 02/19/19 02/19/19 02/19/19 17:00 19:00 20:00 Temperature 37.4 C Heart Rate [ Activity] Heart Rate [ 71 68 69 Monitoring electrodes] Heart Rate [ Sitting (After 1 Minute)] Heart Rate [ Sitting] Heart Rate [ Standing (After 1 Minute)] Heart Rate [ Supine] Respiratory 14 17 17 Rate Blood Pressure [Activity] Blood Pressure 115/71 110/37 L 118/55 L [Left Brachial artery] Blood Pressure [Sitting (After 1 Minute)] Blood Pressure [Sitting] Blood Pressure [Standing ( After 1 Minute) ] Blood Pressure [Supine] O2 Saturation 97 96 96 02/19/19 02/19/19 02/20/19 21:00 23:33 02:02 Temperature 37.3 C 37.3 C 37.1 C Heart Rate [ Activity] Heart Rate [ 68 67 61 Monitoring electrodes] Heart Rate [ Sitting (After 1 Minute)] Heart Rate [ Sitting] Heart Rate [ Standing (After 1 Minute)] Heart Rate [ Supine] Respiratory 14 13 15 Rate Blood Pressure [Activity] Blood Pressure 135/52 H 114/47 L 102/51 L [Left Brachial artery] Blood Pressure [Sitting (After 1 Minute)] Blood Pressure [Sitting] Blood Pressure [Standing ( After 1 Minute) ] Blood Pressure [Supine] O2 Saturation 96 96 98 02/20/19 04:00 Temperature 36.7 C Heart Rate [ Activity] Heart Rate [ 60 Monitoring electrodes] Heart Rate [ Sitting (After 1 Minute)] Heart Rate [ Sitting] Heart Rate [ Standing (After 1 Minute)] Heart Rate [ Supine] Respiratory 15 Rate Blood Pressure [Activity] Blood Pressure 102/62 [Left Brachial artery] Blood Pressure [Sitting (After 1 Minute)] Blood Pressure [Sitting] Blood Pressure [Standing ( After 1 Minute) ] Blood Pressure [Supine] O2 Saturation 96 Oxygen O2 Source [Without Activity] Nasal cannula O2 Source Nasal cannula Oxygen Flow Rate 10 I&O (Last 24 Hrs): Intake and Output Totals x24h 02/18/19 02/19/19 02/20/19 23:59 23:59 23:59 Intake Total 2804.979 3966.649 1070.000 Output Total 2780 1675 455 Balance 24.979 2291.649 615.000 General: Alert, Oriented x3 HEENT: Mucous membr. moist/pink, Other (Pale) Neck: Supple, Other (Obese) Neuro: Alert, Non Focal Cardiovascular: Regular rate Respiratory: No respiratory distress Abdomen: Soft, Other (Obese with pannus) Extremities: No edema - Results Results: Laboratory Results WBC 5.9 x10^3/uL (4.8-10.8) 02/20/19 04:45 RBC 2.83 10^6/uL (4.20-5.40) L 02/20/19 04:45 Hgb 7.8 g/dL (12.0-16.0) L 02/20/19 04:45 Hct 25.5 % (37.0-47.0) L 02/20/19 04:45 MCV 90.1 fL (81.0-99.0) 02/20/19 04:45 MCH 27.4 pg (27.0-31.0) 02/20/19 04:45 MCHC 30.5 g/dL (32.0-36.0) L 02/20/19 04:45 RDW 18.6 % (12.0-15.0) H 02/20/19 04:45 Plt Count 184 10^3/uL (130-450) 02/20/19 04:45 MPV 8.4 fL (7.9-10.8) 02/20/19 04:45 Neut # (Auto) 3.6 10^3/uL (1.5-6.6) 02/20/19 04:45 Lymph # (Auto) 1.5 10^3/uL (1.5-3.5) 02/20/19 04:45 [place] # (Auto) 0.5 10^3/uL (0.0-1.0) 02/20/19 04:45 Eos # (Auto) 0.2 10^3/uL (0.0-0.7) 02/20/19 04:45 Baso # (Auto) 0.1 10^3/uL (0.0-0.1) 02/20/19 04:45 Absolute Nucleated RBC 0.00 x10^3/uL 02/20/19 04:45 Band Neuts % (Manual) Not Reportable 02/20/19 04:45 Abnorm Lymph % (Manual) Not Reportable 02/20/19 04:45 Nucleated RBC % 0.0 /100WBC 02/20/19 04:45 Neutrophils # (Manual) Not Reportable 02/20/19 04:45 Lymphocytes # (Manual) Not Reportable 02/20/19 04:45 Monocytes # (Manual) Not Reportable 02/20/19 04:45 Eosinophils # (Manual) Not Reportable 02/20/19 04:45 Basophils # (Manual) Not Reportable 02/20/19 04:45 Differential Comment MANUAL=AUTO DIFF 02/20/19 04:45 Platelet Estimate NORMAL (130-450,000) (NORMAL) 02/20/19 04:45 RBC Morph Micro Appear NORMAL APPEARANCE (NORMAL) 02/20/19 04:45 PT 15.1 secs (9.9-12.6) H 02/16/19 14:45 INR 1.4 (0.8-1.2) H 02/16/19 14:45 D-Dimer 245.8 ng/mL (200.0-255.0) 02/16/19 14:45 Anti-Xa Level 0.3 U/mL (-0.7) 02/18/19 04:47 Bld Gas Analysis Time 1508 02/16/19 15:00 Sample Site LEFT RADIAL 02/16/19 15:00 ABG pH 7.31 (7.35-7.45) L 02/16/19 15:00 ABG pCO2 49 mmHg (34-45) H 02/16/19 15:00 ABG pO2 61 mmHg (80-100) L 02/16/19 15:00 ABG HCO3 24.2 mmol/L (22.0-26.0) 02/16/19 15:00 ABG Total CO2 25.7 MMOL/L (21.0-29.0) 02/16/19 15:00 ABG O2 Saturation 91 % (94-98) L 02/16/19 15:00 ABG Base Excess -2.3 mmol/L (-2.0-3.0) L 02/16/19 15:00 Nelson Test POSITIVE 02/16/19 15:00 VBG pH 7.254 (7.31-7.41) L 02/19/19 04:00 Ionized Calcium 1.15 mmol/L (1.15-1.33) 02/19/19 04:00 O2 Delivery Device NASAL CANNULA 02/16/19 15:00 O2 Liters/Min 5.00 LPM 02/16/19 15:00 Sodium 142 mmol/L (135-145) 02/20/19 04:45 Potassium 4.9 mmol/L (3.5-5.0) 02/20/19 04:45 Chloride 111 mmol/L (101-111) 02/20/19 04:45 Carbon Dioxide 24 mmol/L (21-32) 02/20/19 04:45 Anion Gap 7.0 (6-13) 02/20/19 04:45 BUN 37 mg/dL (6-20) H 02/20/19 04:45 Creatinine 1.6 mg/dL (0.4-1.0) H 02/20/19 04:45 Estimated GFR (MDRD) 31 (>89) L 02/20/19 04:45 Glucose 122 mg/dL (70-100) H 02/20/19 04:45 POC Whole Bld Glucose 115 mg/dL (70 - 100) H 02/20/19 07:46 Glycated Hemoglobin 6.9 % (4.6-6.2) H 02/16/19 20:45 Estim Average Glucose 151 (70-100) H 02/16/19 20:45 Lactic Acid 2.1 mmol/L (0.5-2.2) 02/16/19 22:40 Calcium 8.2 mg/dL (8.5-10.3) L 02/20/19 04:45 Phosphorus 3.4 mg/dL (2.5-4.6) 02/20/19 04:45 Magnesium 1.8 mg/dL (1.7-2.8) 02/19/19 04:00 Iron 42 ug/dL (28-170) 02/19/19 04:00 TIBC 249 ug/dL (250-450) L 02/19/19 04:00 % Saturation 17 % (20-50) L 02/19/19 04:00 Transferrin 178 mg/dL (192-382) L 02/19/19 04:00 Total Bilirubin 0.2 mg/dL (0.2-1.0) 02/16/19 14:45 AST 14 IU/L (10-42) 02/16/19 14:45 ALT < 10 IU/L (10-60) L 02/16/19 14:45 Alkaline Phosphatase 71 IU/L (42-121) 02/16/19 14:45 Troponin I 0.23 ng/mL (<0.49) 02/18/19 04:47 B-Natriuretic Peptide 179 pg/mL (5-100) H 02/20/19 04:45 Total Protein 7.1 g/dL (6.7-8.2) 02/16/19 14:45 Albumin 2.9 g/dL (3.2-5.5) L 02/18/19 04:47 Globulin 3.6 g/dL (2.1-4.2) 02/16/19 14:45 Albumin/Globulin Ratio 1.0 (1.0-2.2) 02/16/19 14:45 Lipase 25 U/L (22-51) 02/16/19 14:45 Vitamin B12 209 pg/mL (180-914) 02/19/19 04:00 Folate 22.24 ng/mL (5.90 - >24.8) 02/18/19 04:47 TSH 3.84 uIU/mL (0.34-5.60) 02/19/19 04:32 Urine Color LT. YELLOW 02/16/19 15:50 Urine Clarity HAZY (CLEAR) 02/16/19 15:50 Urine pH 5.5 PH (5.0-7.5) 02/16/19 15:50 Ur Specific [place] 1.010 (1.002-1.030) 02/16/19 15:50 Urine Protein NEGATIVE mg/dL (NEGATIVE) 02/16/19 15:50 Urine Glucose (UA) NEGATIVE mg/dL (NEGATIVE) 02/16/19 15:50 Urine Ketones NEGATIVE mg/dL (NEGATIVE) 02/16/19 15:50 Urine Occult Blood MODERATE (NEGATIVE) H 02/16/19 15:50 Urine Nitrite NEGATIVE (NEGATIVE) 02/16/19 15:50 Urine Bilirubin NEGATIVE (NEGATIVE) 02/16/19 15:50 Urine Urobilinogen 0.2 (NORMAL) E.U./dL (NORMAL) 02/16/19 15:50 Ur Leukocyte Esterase SMALL (NEGATIVE) H 02/16/19 15:50 Urine RBC 6-10 /HPF (0-5) H 02/16/19 15:50 Urine WBC 6-10 /HPF (0-5) H 02/16/19 15:50 Ur Squamous Epith Cells FEW Squamous (<= Few) 02/16/19 15:50 Amorphous Sediment Few /LPF 02/16/19 15:50 Urine Bacteria Few /HPF (None Seen) 02/16/19 15:50 Ur Microscopic Review INDICATED 02/16/19 15:50 Urine Culture Comments INDICATED 02/16/19 15:50 Nasal Screen MRSA (PCR) NEGATIVE (NEGATIVE) 02/16/19 18:20 Blood Type O POSITIVE 02/17/19 01:02 Blood Type Recheck O POSITIVE 02/17/19 06:28 Antibody Screen NEGATIVE 02/17/19 01:02 - Procedures Procedures: Procedures INSERTION OF INFUSION DEV INTO L SUBCLAV VEIN, PERC APPROACH (12/31/18) ULTRASONOGRAPHY OF RIGHT SUBCLAVIAN VEIN, GUIDANCE (12/31/18) Sepsis Event Note (H) - Evaluation Current Stage of Sepsis: Septic shock Possible source of Sepsis: positive: Pulmonary, Genitourinary (from indwelling fole pesent on admission) - Sepsis Criteria Sepsis Criteria: Recorded Temperature greater than 38.3C or Less than 36C, Recorded Heart Rate greater than 90 bpm, Recorded Respiratory Rate greater than 20, Respiratory: Increasing oxygen requirements, WIRE TAPER: altered consciousness (unrelated to primary neuro pathology), SBP drop more than 40mHg, Metabolic: lactate > 2 mmol/L
[2019-02-20] MEDS: FAMOTIDINE 20 MG TABLET PO SCH ×2 (08:09→21:42)
[2019-02-20] MEDS: FERROUS SULFATE 325 MG TABLET PO SCH (08:09)
[2019-02-20] MEDS: ASPIRIN EC 81 MG TABLET PO SCH (08:10)
[2019-02-20] MEDS: MULTIVITAMIN W/MINERALS TABLET PO SCH (08:10)
[2019-02-20] MEDS: ATORVASTATIN 40 MG TABLET PO SCH (08:10)
[2019-02-20] MEDS: CARVEDILOL 3.125 MG TABLET PO SCH ×2 (08:10→21:43)
[2019-02-20] MEDS: SACCHAROMYCES BOULARDII 250 MG CAPSULE PO SCH ×2 (08:10→17:00)
[2019-02-20] MEDS: POLYETHYLENE GLYCOL 3350 17 GM PACKET PO SCH (08:14)
[2019-02-20] MEDS: SODIUM CHLORIDE FLUSH 0.9% 10 ML SYRINGE IVP SCH ×3 (08:14→23:29)
--- NOTE | 2019-02-20 10:09 | XRAY Report ---
Reason: Eval for worsening CHF Procedure Date: 02/20/2019 Accession Number: [id number] / [id number] Procedure: XR - Chest 1 View X-Ray CPT Code: 94760 FULL RESULT: EXAM: CHEST RADIOGRAPHY, PORTABLE 1 VIEW EXAM DATE: 02/20/2019 09:03 AM. CLINICAL HISTORY: 74-year-old female for evaluation for possible worsening CHF. COMPARISON: CHEST 1 VIEW 02/19/2019 8:03 AM. CHEST 1 VIEW 02/17/2019 7:19 AM. CHEST FOR LINE PLACEMENT 02/16/2019 10:22 PM. TECHNIQUE: 0844 Hours AP upright portable view. FINDINGS: Lungs/Pleura: Suboptimal inspiratory effort. No infiltrates, effusions or pneumothorax. Mediastinum: Heart size moderately enlarged, as previously with decreased pulmonary vascular congestion. No overt cardiac failure or pulmonary edema. Other: Trachea is midline. Osseous structures are unremarkable. Right-sided PICC line in stable and satisfactory position in the upper SVC. IMPRESSION: Cardiomegaly without CHF or pulmonary edema, improved from study of yesterday. RADIA
[2019-02-20] MEDS: MEROPENEM 1 GM in SODIUM CHLORIDE 0.9% MINIBAG 100 ML IV SCH ×2 (10:25→23:28)
[2019-02-20] MEDS: NYSTATIN POWDER 15 GM TOP SCH ×2 (11:39→21:46)
[2019-02-20] MEDS: oxyCODONE 5 MG TABLET PO PRN ×3 (11:45→21:42)
[2019-02-20] MEDS: RIVAROXABAN 15 MG TABLET PO SCH (17:00)
[2019-02-20] MEDS: INSULIN GLARGINE 300 UNIT/3 ML PEN SUBQ SCH (21:45)
[2019-02-21 05:07] LABS: BASOPHILS % (AUTO) 0.9 %; EOSINOPHILS % (AUTO) 3.4 %; HGB - HEMOGLOBIN 7.5 g/dL (12.0-16.0); LYMPHOCYTES % (AUTO) 28.5 %; MEAN CORPUSCULAR HEMOGLOBIN 27.4 pg (27.0-31.0); MEAN CORPUSCULAR HGB CONC 30.1 g/dL (32.0-36.0); MEAN PLATELET VOLUME 7.9 fL (7.9-10.8); MONOCYTES % (AUTO) 10.2 %; PLT - PLATELET COUNT 194 10^3/uL (130-450); RED BLOOD COUNT 2.73 10^6/uL (4.20-5.40); RED CELL DISTRIBUTION WIDTH 18.3 % (12.0-15.0); WHITE BLOOD COUNT 5.7 x10^3/uL (4.8-10.8)
[2019-02-21 05:08] LABS: ABNORMAL LYMPHS % (MANUAL) 0 %
[2019-02-21 05:18] LABS: CALCIUM 8.1 mg/dL (8.5-10.3); CREATININE 1.6 mg/dL (0.4-1.0)
[2019-02-21 05:46] LABS: BAND NEUTROPHILS % (MANUAL) 6 %; DIFFERENTIAL COMMENT MANUAL DIFFERENTIAL; LYMPHOCYTES # (MANUAL) 1.4 10^3/uL (1.5-3.5); LYMPHOCYTES % (MANUAL) 24 %; MONOCYTES # (MANUAL) 0.6 10^3/uL (0.0-1.0); MYELOCYTES % (MANUAL) 1 %; NEUTROPHILS # (MANUAL) 3.6 10^3/uL (1.5-6.6); NEUTROPHILS % (MANUAL) 58 %; PLATELET ESTIMATE, MANUAL NORMAL (130-450,000) (NORMAL); RBC MORPHOLOGY (MULTIPLE) NORMAL APPEARANCE (NORMAL)
[2019-02-21] MEDS: IBUPROFEN 400 MG TABLET PO SCH ×2 (06:43→11:49)
[2019-02-21] MEDS: MIDODRINE 2.5 MG TABLET PO SCH ×2 (06:43→14:23)
[2019-02-21] MEDS: LEVOTHYROXINE 75 MCG TABLET PO SCH (06:43)
[2019-02-21] MEDS: ATORVASTATIN 40 MG TABLET PO SCH (08:07)
[2019-02-21] MEDS: MULTIVITAMIN W/MINERALS TABLET PO SCH (08:07)
[2019-02-21] MEDS: INSULIN ASPART 300 UNIT/3 ML PEN SUBQ SCH ×4 (08:07→11:50)
[2019-02-21] MEDS: ASPIRIN EC 81 MG TABLET PO SCH (08:08)
[2019-02-21] MEDS: FAMOTIDINE 20 MG TABLET PO SCH (08:08)
[2019-02-21] MEDS: CARVEDILOL 3.125 MG TABLET PO SCH (08:08)
[2019-02-21] MEDS: NYSTATIN POWDER 15 GM TOP SCH (08:08)
[2019-02-21] MEDS: FERROUS SULFATE 325 MG TABLET PO SCH (08:08)
[2019-02-21] MEDS: SACCHAROMYCES BOULARDII 250 MG CAPSULE PO SCH (08:08)
[2019-02-21] MEDS: POLYETHYLENE GLYCOL 3350 17 GM PACKET PO SCH (08:09)
[2019-02-21] MEDS: SODIUM CHLORIDE FLUSH 0.9% 10 ML SYRINGE IVP SCH (08:09)
--- NOTE | 2019-02-21 08:17 | Discharge Plan ---
Discharge Plan Disposition: Home Health Service Condition: Stable Prescriptions: Amox/Clav 875/125 [Augmentin 875/125] 1 tab PO BID #11 tablet Aspirin [Aspirin EC] 81 mg PO DAILY #30 tablet. Ferrous Sulfate 325 mg PO DAILY #30 tablet Furosemide 20 mg PO MOWEFR #15 tablet Midodrine 2.5 mg PO TID #90 tablet Saccharomyces Boulardii [Florastor] 250 mg PO BID #10 capsule Diet: Diabetic Activity Restrictions: Activity as Tolerated Shower Restrictions: No Instruction Topics: Catheter Indwelling Urinary Dc, Catheter Blanco Girl , ED Catheter Care Blanco Additional Instructions or Follow Up instructions: You were admitted with septic shock from a strong bacterial urinary tract infection. You need to see a Urologist as an outpatient, regarding recurrent UTIs and the management or discontinuation of your Blanco catheter. You also had a small heart attack. Medications were adjusted slightly due to your low blood pressure: you are now on Midodrine to help keep your BP up and you should be on a baby aspirin daily (in addition to the Xarelto). Please resume all of your pre-hospital medications EXCEPT the Lasix should only be taken once a day and only on Mon, Wed, Fri. You are also being prescribed several more days of oral antibiotics, to take until they are finished, and a probiotic. You also need Iron replacement, which has been prescribed. Home Health has been ordered to resume. See your PCP for any further questions, and for hospital follow-up, in the next 1-2 weeks. Follow-Up Care: Home Health - RN, Home Health - PT, Home Health - OT No Smoking: If you smoke, Please STOP! Call for help. Follow-up with: Jose Luis Metcalf MD [Primary Care Provider] -
[2019-02-21] MEDS ORDERED: AMOX/CLAV 875 MG/125 MG TABLET PO SCH (09:00)
[2019-02-21 14:30] VITALS: BP 147/57
--- NOTE | 2019-02-26 14:07 | DISCHARGE SUMMARY ---
Physician: Angeline Tolliver MD DATE OF ADMISSION: 02/16/2019 DATE OF DISCHARGE: 02/21/2019 HISTORY OF PRESENT ILLNESS: This is a 74-year-old white female with a history of morbid obesity, BMI 39, diabetes, GA in 2019, ex-smoker who quit several years ago, history of UTI causing metabolic encephalopathy admissions in November needing SNF before returning home, then similar UTI with encephalopathy in December as well. She has a chronic indwelling Blanco because of urinary incontinence, resulting in decubitus ulcers. She is getting Home Health care with physical therapy, ambulates with a walker. Patient presented to the emergency room with rapidly worsening, lethargy, weakness, labored breathing and a temperature of 39.2 centigrade. She was found to have tachycardia with heart rate of 122, initial blood pressure of 219/167, which dropped to 103/69. She was started on aggressive IV saline. Her lactic acid level was initially not elevated at 1.4, but later that night, farshad to 2.1. A PICC line was put in and she received a dose of IV ceftriaxone after obtaining blood and urine cultures. She was admitted to the ICU for septic shock and management of her infection. HOSPITAL COURSE AND DISCHARGE DIAGNOSES 1. Septic shock. The patient's blood pressure continued to drop into the 80s systolioc, and she needed a Levophed drip along with getting saline and lactated Ringer's IV. Her metabolic encephalopathy and vital signs improved after 48 hours, and the Levophed was weaned to off. She was continued on IV antibiotics using cefepime and vancomycin for a potential lung infiltrate and also definite UTI recurrence, as pyuria was noted on urinalysis. 2. Urinary tract infection due to ESBL-producing Klebsiella pneumoniae. Her IV cefepime and vancomycin were transitioned to Meropenem. With this she had continued improvement in her vital signs and white blood count normalized. An MRI of the abdomen and pelvis was ordered, but she did not fit into the MRI machine. She was discharged home to take an additional 5 more days of oral antibiotics using Augmentin b.i.d., which was based on the Klebsiella sensitivities. 3. Acute NSTEMI. Patient's admission lab work revealed a troponin of 0.05, which then increased to 0.29, 0.30, and peaked at 0.41 before dropping to 0.23. She did have EKG changes showing new T-wave inversion in the anterior lead with J-point elevation in V1 and V2. An Echo was done that showed preserved left ventricular ejection fraction (in the recent past she had an LVEF of 45%). She was started on very low doses of Coreg, which was slowly titrated up during this admission while her blood pressure normalized and when Levophed was discontinued. At the time of discharge the plan was to resume her usual doses of Metoprolol and other cardiac medications. The patient did not want transfer for invasive management such as an angiogram. 4. Ventricular tachycardia. On her second and third day of admission, she had several runs of monomorphic ventricular tachycardia. This was felt to be from the acute GA and managed with the beta israel. Her magnesium was also replaced. 5. Congestive heart failure, acute diastolic. Her chest x-ray, which initially had a question of infiltrate, was repeated daily and showed no infiltrate, but in fact had vascular congestion. Her IV fluids were therefore weaned down and discontinued at this time and she received one dose of Lasix IV. Her initial oxygen needs were weaned to off by the time of discharge, since she was on room air with adequate saturations. 6. Hypotension due to medication. Her initial rapid drop in blood pressure was also felt to be from her having taken her usual home medications including Lasix 40 mg b.i.d., Lisinopril 2.5 mg daily, and Toprol-XL 50 mg daily and Imdur 30 mg daily. Because of the persistent low blood pressure while here, she got Coreg here, no ERIC inhibitor and only one single dose of diuretic. She was also started on midodrine 2.5 mg t.i.d. and discharged with this in order to compensate for any drops in blood pressure when she resumes Imdur, lisinopril, Toprol-XL, a lower dose of Lasix and Aldactone , the later was started here. 7. Diabetes type 2 in obese patient. Patient was on carb-controlled diet, started when she was more lucid and also had fingerstick glucose checks and sliding scale Insulin coverage. 8. Iron deficiency anemia. Her admission hemoglobin was 9.4 which dropped to as low as 7.8, due to aggressive volume infusion. Because of this, she underwent serum testing and was found to have low iron stores, adequate B12 and folate. She was started on daily oral iron replacement. 9. Acute on chronic kidney disease, stage 3. Patient's admission BUN and creatinine were 52 /2.0. She was presumed to have ATN from shock. BUN and creatinine eventually improved from 55 /2.1 and then eventually 45 /1.7 and at the time of discharge, 37 /1.6 10. Hyperkalemia. With her elevated creatinine, her potassium levels were 5.7, 5.4 and 5.1. No Kayexalate was needed since the hyperkalemia became corrected with improvement of her renal function. 11. Indwelling catheter present on admission. There was discussion about discontinuation of this however, decubitus ulcers were still present and her Blanco was continued during this hospital course. She was advised to see a Urologist for determination of other management of urinary incontinence. 12. Hypothyroidism. Patient was kept on her thyroid medication while here. 13. History of transient ischemic attack. Patient was kept on her anticoagulant, Xarelto while here. 14. Chronic obstructive pulmonary disease. Patient required p.r.n. nebulizer treatments, but had no COPD exacerbation or active wheezing. 15. Chronic pain. Patient was kept on her prehospital pain medications while here. 16. Decubitus ulcer of the buttocks, stage 2. As described above, Urology input is highly recommended for management of urinary incontinence in order to heal her decubitus ulcer and to discontinue a chronic indwelling Blanco which has probably caused at least 2 of her UTI with bactermia admissions. LABS AND IMAGING: Reviewed and summarized above. ALLERGIES: NONE. MEDICATIONS AT THE TIME OF DISCHARGE 1. Atorvastatin 40 mg. 2. Dulcolax 5 mg b.i.d. p.r.n. 3. Diphenoxylate/atropine one tab q.i.d. p.r.n. 4. [place] 5/325 mg t.i.d. p.r.n. 5. Insulin NPH 10 units subcutaneous every morning. 6. Nystatin topical cream b.i.d. 7. Omeprazole 20 mg daily. 8. Xarelto 15 mg every night with dinner. 9. Florastor 250 mg b.i.d. 10. Augmentin 875/125 125 mg b.i.d. for an additional 5 days. 11. Aspirin 81 mg daily. 12. Iron 325 mg daily. 13. Lasix dose was decreased from 40 mg b.i.d. down to 20 mg on Sunday, Sunday, Sunday only. 14. Imdur 30 mg daily. 15. Levothyroxine 150 mcg daily. 16. Lisinopril 2.5 mg daily. 17. Toprol-XL 50 mg daily. 18. Midodrine 2.5 mg t.i.d. with meals. 19. Aldactone 25 mg daily. CONDITION AT DISCHARGE: Stable. VITAL SIGNS: Blood pressure 140/60, heart rate 72 in sinus rhythm. REVIEW OF SYSTEMS HEENT: Unremarkable. NECK: Obese. CHEST: Good breath sounds. No wheezing. HEART very distant heart sounds. ABDOMEN: Obese with, soft, nontender. EXTREMITIES: Trace pedal edema. No ankle or leg edema. NEUROLOGIC: Grossly intact. FOLLOWUP: She was advised to see her PCP in 1-2 weeks for hospital followup. She was advised (along with the daughter present at bedside) to have a Urologist evaluation. She was discharged under the care of Home Health, to be resumed at home. CODE STATUS: DNR. Time required to complete this entire discharge, chart review, patient and daughter education, prescription orders: 65 minutes. cc: Jose Luis Metcalf MD TD: 02/26/2019 13:29 MTDD
== END 2019-02-21 15:04 | disposition home health service (06) | DRG 698 ==
LOC: EDUNIT# → ED 14:35 → ICU 17:16
PROVIDERS: ADMIT Specialist; ATTEND Internal Medicine
PROC: 02HV33Z Insertion of Infusion Device into Superior Vena Cava, Percutaneous Approach (ICD-10-PCS; principal; 2019-02-16)
DX: N39.0 Urinary tract infection, site not specified (principal); J18.9 Pneumonia, unspecified organism; J43.9 Emphysema, unspecified; E11.9 Type 2 diabetes mellitus without complications; T83.511A Infection and inflammatory reaction due to indwelling urethral catheter, initial encounter; A41.89 Other specified sepsis; R65.21 Severe sepsis with septic shock; G93.41 Metabolic encephalopathy; I21.4 Non-ST elevation (NSTEMI) myocardial infarction; I50.33 Acute on chronic diastolic (congestive) heart failure; J18.1 Lobar pneumonia, unspecified organism; J96.01 Acute respiratory failure with hypoxia; J44.0 Chronic obstructive pulmonary disease with (acute) lower respiratory infection; E87.2 Acidosis; I47.2 Ventricular tachycardia; I13.0 Hypertensive heart and chronic kidney disease with heart failure and stage 1 through stage 4 chronic kidney disease, or unspecified chronic kidney disease; N17.9 Acute kidney failure, unspecified; E11.22 Type 2 diabetes mellitus with diabetic chronic kidney disease; N18.3 Chronic kidney disease, stage 3 (moderate); E66.01 Morbid (severe) obesity due to excess calories; Z68.38 Body mass index [BMI] 38.0-38.9, adult; I95.2 Hypotension due to drugs; T50.1X5A Adverse effect of loop [high-ceiling] diuretics, initial encounter; T46.4X5A Adverse effect of angiotensin-converting-enzyme inhibitors, initial encounter; T44.7X5A Adverse effect of beta-adrenoreceptor antagonists, initial encounter; E03.9 Hypothyroidism, unspecified; D50.9 Iron deficiency anemia, unspecified; E87.5 Hyperkalemia; J44.9 Chronic obstructive pulmonary disease, unspecified; R32 Unspecified urinary incontinence; R35.0 Frequency of micturition; G89.29 Other chronic pain; L89.322 Pressure ulcer of left buttock, stage 2; L89.312 Pressure ulcer of right buttock, stage 2; E86.0 Dehydration; K21.9 Gastro-esophageal reflux disease without esophagitis; E11.65 Type 2 diabetes mellitus with hyperglycemia; K59.09 Other constipation; K52.9 Noninfective gastroenteritis and colitis, unspecified; J32.9 Chronic sinusitis, unspecified; H91.90 Unspecified hearing loss, unspecified ear; F32.9 Major depressive disorder, single episode, unspecified; F41.9 Anxiety disorder, unspecified; M19.90 Unspecified osteoarthritis, unspecified site; M54.9 Dorsalgia, unspecified; R53.83 Other fatigue; Z66 Do not resuscitate; Z99.81 Dependence on supplemental oxygen; Z79.891 Long term (current) use of opiate analgesic; Z79.4 Long term (current) use of insulin; Z79.899 Other long term (current) drug therapy; Z87.891 Personal history of nicotine dependence; I25.2 Old myocardial infarction; Z87.440 Personal history of urinary (tract) infections; Z86.73 Personal history of transient ischemic attack (TIA), and cerebral infarction without residual deficits
CPT/HCPCS: 36415; 36600; 51702; 71045; 80048; 80053; 80069; 81001; 82272; 82330; 82607; 82746; 82803; 83036; 83540; 83605; 83690; 83735; 83880; 84100; 84443; 84466; 84484; 85025; 85027; 85379; 85520; 85610; 86850; 86900; 86901; 87040; 87077; 87086; 87150; 87181; 93005; 93306; 94640; 97162; 97530; 99284; A6250; A9270; C1751; J0131; J1815; J2185; J2270; J2916; J3370; J7120; 80202; 81003

== ENCOUNTER 2019-02-24 18:02 | Outpatient (CLI) | payer MEDICARE, OTHER | END 2019-02-24 18:03 | disposition critical access hospital (66) | LOC: EMS 18:02 | PROVIDERS: ATTEND Surgery | DX: R53.1 Weakness (principal); R53.83 Other fatigue | CPT/HCPCS: A0425; A0429 ==

== ENCOUNTER 2019-02-24 18:17 | Inpatient (IN) | payer MEDICARE, OTHER ==
[2019-02-24 18:44] LABS: BILIRUBIN,URINE NEGATIVE (NEGATIVE); GLUCOSE, URINE (UA) NEGATIVE (NEGATIVE); KETONES,URINE (UA) NEGATIVE (NEGATIVE); LEUKOCYTE ESTERASE, URINE MODERATE (NEGATIVE); NITRITE,URINE NEGATIVE (NEGATIVE); OCCULT BLOOD,URINE MODERATE (NEGATIVE); PROTEIN,URINE 30 mg/dL (NEGATIVE); UROBILINOGEN,URINE 0.2 (NORMAL) E.U./dL (NORMAL)
[2019-02-24 18:45] LABS: CLARITY,URINE CLOUDY (CLEAR)
[2019-02-24 18:51] LABS: WBC CLUMPS,URINE PRESENT
--- NOTE | 2019-02-24 18:51 | ED Physician Documentation ---
History of Present Illness - Stated complaint Stated Complaint: WEAKNESS - Chief complaint Chief Complaint: Neuro - History obtained from History obtained from: Patient, EMS - History of Present Illness Timing: Today Pain level max: 0 Pain level now: 0 - Additonal information Additional information: Patient was recently admitted to the hospital for UTI and urosepsis. Discharged 2 days ago. States that she is feeling "not right" today. States that she feels like she is "thinking funny". No other specific complaints. No cough. No abdominal pain. No fevers. Review of Systems Ten Systems: 10 systems reviewed and negative Constitutional: denies: Fever, Chills Ears: denies: Ear pain Nose: denies: Rhinorrhea / runny nose, Congestion Throat: denies: Sore throat Cardiac: denies: Chest pain / pressure Respiratory: denies: Cough, Wheezing : reports: Other (chronic roldan) Skin: denies: Rash Musculoskeletal: denies: Neck pain, Back pain Neurologic: reports: Generalized weakness. denies: Focal weakness, Numbness, Headache, Head injury PD PAST MEDICAL HISTORY - Past Medical History Past Medical History: Yes Cardiovascular: Congestive heart failure, Hypertension Respiratory: COPD, Emphysema, Shortness of breath Neuro: Migraines Endocrine/Autoimmune: Type 2 diabetes, HyPOthyroidism GI: GERD, Chronic constipation, Hemorrhoids HIGH SCHOOL PRINCIPAL: None : Incontinence, Indwelling catheter HEENT: Chronic sinusitis, Chronic hearing loss Psych: Depression, Anxiety Musculoskeletal: Osteoarthritis, Chronic back pain Derm: Other - Past Surgical History Past Surgical History: Yes General: Cholecystectomy /HIGH SCHOOL PRINCIPAL: Hysterectomy - Present Medications Home Medications: Ambulatory Orders Medication Instructions Recorded Confirmed Atorvastatin Calcium 40 mg PO QPM 11/13/17 02/17/19 HYDROcod/ACETAM 5/325 [[place] 5/325] 1 tab PO TID PRN 11/13/17 02/17/19 Isosorbide Mononitrate ER [Imdur] 30 mg PO DAILY #60 tablet 11/15/17 02/17/19 Metoprolol Succinate [Toprol Xl] 50 mg PO DAILY #60 tablet 11/15/17 02/17/19 Spironolactone [Aldactone] 25 mg PO DAILY #60 tablet 11/15/17 02/17/19 Omeprazole 20 mg PO QDAC 08/31/18 02/17/19 Levothyroxine Sodium 150 mcg PO DAILY #30 tablet 10/03/18 02/17/19 Bisacodyl [Dulcolax] 5 mg PO BID PRN 11/05/18 02/17/19 Rivaroxaban [Xarelto] 15 mg PO QDDINNER 11/05/18 02/17/19 Lisinopril [Zestril] 2.5 mg PO DAILY #30 tablet 12/23/18 02/17/19 Diphenoxylate HCl/Atropine 1 tab PO QID PRN 02/17/19 02/17/19 [Diphenoxylate-Atrop 2.5-0.025] Insulin NPH Hum/Reg Insulin Hm 10 unit SQ 0730 02/17/19 02/17/19 [Relion Novolin 70-30 Flexpen] Nystatin 1 applic TOP BID 02/17/19 02/17/19 Saccharomyces Boulardii [Florastor] 250 mg PO BIDWM 02/17/19 02/17/19 Amox/Clav 875/125 [Augmentin 1 tab PO BID #11 tablet 02/21/19 875/125] Aspirin [Aspirin EC] 81 mg PO DAILY #30 tablet. 02/21/19 Ferrous Sulfate 325 mg PO DAILY #30 tablet 02/21/19 Furosemide 20 mg PO MOWEFR #15 tablet 02/21/19 Midodrine 2.5 mg PO TID #90 tablet 02/21/19 Saccharomyces Boulardii [Florastor] 250 mg PO BID #10 capsule 02/21/19 - Allergies Allergies/Adverse Reactions: Allergies Allergy/AdvReac Type Severity Reaction Status Date / Time No Known Drug Allergies Allergy Verified 02/24/19 18:24 - Social History Does the pt smoke?: No Smoking Status: Never smoker Does the pt drink ETOH?: No Does the pt have substance abuse?: No - Immunizations Immunizations are current?: Yes - POLST Patient has POLST: Yes POLST Status: DNR PD ED PE NORMAL - Vitals Vital signs reviewed: Yes - General General: No acute distress, Well developed/nourished (obese female), Other (drowsy, but arousable) - HEENT HEENT: Moist mucous membranes, Pharynx benign - Neck Neck: Supple, no meningeal sign - Cardiac Cardiac: RRR - Respiratory Respiratory: No respiratory distress, Clear bilaterally - Abdomen Abdomen: Soft, Non tender, Non distended - Derm Derm: Warm and dry - Extremities Extremities: No calf tenderness / cord - Neuro Neuro: No motor deficit, No sensory deficit Results - Vitals Vitals: Vital Signs - 24 hr 02/24/19 02/24/19 02/24/19 18:22 18:39 20:15 Temperature 36.8 C Heart Rate 77 77 Respiratory 18 18 19 Rate Blood Pressure 159/59 H 142/66 H O2 Saturation 94 95 Oxygen O2 Source [Without Activity] Nasal cannula O2 Source Room air - EKG (time done) 1943 Rate: Rate (enter#) (80) Rhythm: NSR [place]: Normal Intervals: Normal MA QRS: Normal Ischemia: Normal ST segments - Labs Labs: Laboratory Tests 02/24/19 02/24/19 02/24/19 18:35 18:55 18:55 WBC 10.0 RBC 3.03 L Hgb 8.3 L Hct 27.5 L MCV 90.7 MCH 27.5 MCHC 30.3 L RDW 19.1 H Plt Count 236 MPV 8.1 Neut # (Auto) Not Reportable Lymph # (Auto) Not Reportable [place] # (Auto) Not Reportable Eos # (Auto) Not Reportable Baso # (Auto) Not Reportable Absolute Nucleated RBC Not Reportable Total Counted 100 Band Neuts % (Manual) 10 Abnorm Lymph % (Manual) 0 Nucleated RBC % Not Reportable Neutrophils # (Manual) 8.2 H Lymphocytes # (Manual) 1.2 L Monocytes # (Manual) 0.5 Eosinophils # (Manual) 0.1 Basophils # (Manual) 0.0 Differential Comment MANUAL DIFFERENTIAL Manual Slide Review Indicated WBC Morphology NORMAL APPEARANCE Platelet Estimate NORMAL (130-450,000) Platelet Morphology NORMAL APPEARANCE RBC Morph Micro Appear 1+ BASO STIPPLING Sodium 140 Potassium 6.8 H* Chloride 106 Carbon Dioxide 26 Anion Gap 8.0 BUN 33 H Creatinine 1.5 H Estimated GFR (MDRD) 34 L Glucose 158 H Calcium 8.4 L Total Bilirubin 0.5 AST 11 ALT < 10 L Alkaline Phosphatase 64 Total Protein 7.1 Albumin 3.4 Globulin 3.7 Albumin/Globulin Ratio 0.9 L Lipase 24 Urine Color YELLOW Urine Clarity CLOUDY Urine pH 6.0 Ur Specific [place] 1.020 Urine Protein 30 H Urine Glucose (UA) NEGATIVE Urine Ketones NEGATIVE Urine Occult Blood MODERATE H Urine Nitrite NEGATIVE Urine Bilirubin NEGATIVE Urine Urobilinogen 0.2 (NORMAL) Ur Leukocyte Esterase MODERATE H Urine RBC 6-10 H Urine WBC >25 H Urine WBC Clumps PRESENT Ur Squamous Epith Cells FEW Squamous Urine Bacteria Rare Urine Yeast PRESENT Ur Microscopic Review INDICATED Urine Culture Comments INDICATED PD MEDICAL DECISION MAKING - ED course Complexity details: reviewed old records, reviewed results, re-evaluated patient, considered differential, d/w patient, d/w identity management consultant ED course: Patient with new hyperkalemia. Also continued UTI. Also weakness. Given IV fluids, insulin, glucose, Kayexalate. No EKG changes. Will admit for further care. Discussed the case with the hospitalist, Dr. Bonds who accepts. This document was made in part using voice recognition software. While efforts are made to proofread this document, sound alike and grammatical errors may occur. Departure - Departure Disposition: 66 [facility] DC/Xfer Clinical Impression: Hyperkalemia, Weakness UTI (urinary tract infection) Qualifiers: Urinary tract infection type: acute cystitis Hematuria presence: without hematuria Qualified Code(s): N30.00 - Acute cystitis without hematuria Condition: Stable Discharge Date/Time: 02/24/19 22:11
[2019-02-24 18:52] LABS: BACTERIA,URINE Rare /HPF (None Seen); SQUAMOUS EPITHELIAL CELL,UR FEW Squamous (<= Few); YEAST,URINE PRESENT
[2019-02-24 19:10] LABS: BASOPHILS % (AUTO) 1.2 %; EOSINOPHILS % (AUTO) 1.8 %; HGB - HEMOGLOBIN 8.3 g/dL (12.0-16.0); LYMPHOCYTES % (AUTO) 11.7 %; MEAN CORPUSCULAR HEMOGLOBIN 27.5 pg (27.0-31.0); MEAN CORPUSCULAR HGB CONC 30.3 g/dL (32.0-36.0); MEAN CORPUSCULAR VOLUME 90.7 fL (81.0-99.0); MEAN PLATELET VOLUME 8.1 fL (7.9-10.8); MONOCYTES % (AUTO) 7.6 %; NEUTROPHILS % (AUTO) 77.7 %; PLT - PLATELET COUNT 236 10^3/uL (130-450); RED BLOOD COUNT 3.03 10^6/uL (4.20-5.40); RED CELL DISTRIBUTION WIDTH 19.1 % (12.0-15.0)
[2019-02-24 19:11] LABS: ABNORMAL LYMPHS % (MANUAL) 0 %
[2019-02-24 19:28] LABS: BAND NEUTROPHILS % (MANUAL) 10 %; DIFFERENTIAL COMMENT MANUAL DIFFERENTIAL; EOSINOPHILS # (MANUAL) 0.1 10^3/uL (0-0.7); LYMPHOCYTES # (MANUAL) 1.2 10^3/uL (1.5-3.5); LYMPHOCYTES % (MANUAL) 12 %; MONOCYTES # (MANUAL) 0.5 10^3/uL (0.0-1.0); NEUTROPHILS # (MANUAL) 8.2 10^3/uL (1.5-6.6); NEUTROPHILS % (MANUAL) 72 %; PLATELET ESTIMATE, MANUAL NORMAL (130-450,000) (NORMAL); PLATELET MORPHOLOGY NORMAL APPEARANCE (NORMAL)
[2019-02-24 19:30] LABS: ALBUMIN 3.4 g/dL (3.2-5.5); ALBUMIN/GLOBULIN RATIO 0.9 (1.0-2.2); ALKALINE PHOSPHATASE 64 IU/L (42-121); ALT ALANINE AMINOTRANSFERASE < 10 IU/L (10-60); AST ASPARTATE AMINOTRANSFERASE 11 IU/L (10-42); BILIRUBIN,TOTAL 0.5 mg/dL (0.2-1.0); BUN - BLOOD UREA NITROGEN 33 mg/dL (6-20); CALCIUM 8.4 mg/dL (8.5-10.3); CARBON DIOXIDE - CO2 26 mmol/L (21-32); CHLORIDE 106 mmol/L (101-111); CREATININE 1.5 mg/dL (0.4-1.0); GFR - MDRD 34 (>89); GLUCOSE 158 mg/dL (70-100); LIPASE 24 U/L (22-51); SODIUM 140 mmol/L (135-145); TOTAL PROTEIN 7.1 g/dL (6.7-8.2)
[2019-02-24] MEDS ORDERED: INSULIN REGULAR HUMAN 100 UNIT/1 ML 10 ML MDV SUBQ STA (19:44)
[2019-02-24] MEDS ORDERED: DEXTROSE 50% ABBOJECT 25 GM/50 ML SYRINGE IVP STA (19:44)
[2019-02-24] MEDS ORDERED: SODIUM POLYSTYRENE SULFONATE 15 GM/60 ML BOTTLE PO STA (19:45)
[2019-02-24] MEDS ORDERED: SODIUM CHLORIDE 0.9% 1,000 ML IV ONE (20:19)
[2019-02-24] MEDS ORDERED: cefTRIAXone 1 GM VIAL IVP STA (20:19)
[2019-02-24] MEDS ORDERED: INSULIN REGULAR HUMAN 100 UNIT/1 ML 10 ML MDV IVP STA ×2 (21:01→21:17)
[2019-02-24] MEDS ORDERED: DEXTROSE 50% ABBOJECT 25 GM/50 ML SYRINGE IVP ONE (21:16)
--- NOTE | 2019-02-24 22:01 | HISTORY & PHYSICAL EXAMINATION ---
Chief Complaint - Chief Complaint Chief Complaint: generalized weakness and lethargic History of Present Illness - Admitted From Admitted From:: [facility] ED - History Obtained From Records Reviewed: yes History obtained from: patient and daughter - History of Present Illness HPI Comment/Other: Patient seen and examined on 02/24/2019 at 21:20pm Patient is a 74 y/o female who was discharged home from the [facility] on 02/21/19. She had presented during that admission with lethargy. She was diagnosed and treated for sepsis 2/2 UTI (ESBL Klebsiella) and pneumonia. Prior to discharge she was working with physical therapy and she was ambulating in her room. She got home and was able to transfer into bed. She slept all Sunday night, was very tired Sunday and slept most of the day. Today her daughter(who is her caregiver) was concerned because the patient was disoriented and weak. In the ED she was found to have a potassium level of 6.8, creatinine of 1.5 and her UA suggested persistence of a UTI. As a result she is being admitted for further management. She denies chest pain or ELI. However she has crackles on auscultation of the right lung. No abdominal pain. There is no significant edema. She was discharged home with physical therapy but has not had the opportunity to start working with them since it was the weekend. History - Past Medical History Cardiovascular: reports: Congestive heart failure, Hypertension Respiratory: reports: COPD, Emphysema, Shortness of breath Neuro: reports: Migraines Endocrine/Autoimmune: reports: Type 2 diabetes, HyPOthyroidism GI: reports: GERD, Chronic constipation, Hemorrhoids CANAL DRIVER: reports: None : reports: Incontinence, Indwelling catheter HEENT: reports: Chronic sinusitis, Chronic hearing loss Psych: reports: Depression, Anxiety Musculoskeletal: reports: Osteoarthritis, Chronic back pain Derm: reports: Other MRSA Hx?: No - Past Surgical History General: reports: Cholecystectomy /CANAL DRIVER: reports: Hysterectomy - Family & Social History Family History: Mother: , Cancer, Father: , CAD, Diabetes, Type 2, Hypertension, Sister: , Cancer Family History Comment/Other: Mother from an unknown type of cancer, father of CAD, HTN and he was diabetic, sister after complications of a CABG, another sister of cancer, a brother of CAD and patient has one sister who is alive and well. 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 She was for 32 years, but her about 2014 years ago. She had 3 children, 3 girls and one boy. The boy at age 14 years. She raised her family in the state of [place]. Patient was a life-long smoker, but quit about 6 years ago after a really bad case of pneumonia. Patient denies alcohol, or other illicit drug use. She wishes to be a DNR. A long discussion about quality of life and possible upcoming procedures in the event she would need a cardiac cath. Patient was clear about not wanting anything invasive that would prolong her life. - Substance History Use: Uses substance without health or social issues: Tobacco (quit 6 years ago; no etoh use) - POLST Patient has POLST: Yes POLST Status: DNR Meds/Allgy - Home Medications Home Medications: Ambulatory Orders Medication Instructions Recorded Confirmed Atorvastatin Calcium 40 mg PO QPM 11/13/17 02/17/19 HYDROcod/ACETAM 5/325 [[place] 5/325] 1 tab PO TID PRN 11/13/17 02/17/19 Isosorbide Mononitrate ER [Imdur] 30 mg PO DAILY #60 tablet 11/15/17 02/17/19 Metoprolol Succinate [Toprol Xl] 50 mg PO DAILY #60 tablet 11/15/17 02/17/19 Spironolactone [Aldactone] 25 mg PO DAILY #60 tablet 11/15/17 02/17/19 Omeprazole 20 mg PO QDAC 08/31/18 02/17/19 Levothyroxine Sodium 150 mcg PO DAILY #30 tablet 10/03/18 02/17/19 Bisacodyl [Dulcolax] 5 mg PO BID PRN 11/05/18 02/17/19 Rivaroxaban [Xarelto] 15 mg PO QDDINNER 11/05/18 02/17/19 Lisinopril [Zestril] 2.5 mg PO DAILY #30 tablet 12/23/18 02/17/19 Diphenoxylate HCl/Atropine 1 tab PO QID PRN 02/17/19 02/17/19 [Diphenoxylate-Atrop 2.5-0.025] Insulin NPH Hum/Reg Insulin Hm 10 unit SQ 0730 02/17/19 02/17/19 [Relion Novolin 70-30 Flexpen] Nystatin 1 applic TOP BID 02/17/19 02/17/19 Saccharomyces Boulardii [Florastor] 250 mg PO BIDWM 02/17/19 02/17/19 Amox/Clav 875/125 [Augmentin 1 tab PO BID #11 tablet 02/21/19 875/125] Aspirin [Aspirin EC] 81 mg PO DAILY #30 tablet. 02/21/19 Ferrous Sulfate 325 mg PO DAILY #30 tablet 02/21/19 Furosemide 20 mg PO MOWEFR #15 tablet 02/21/19 Midodrine 2.5 mg PO TID #90 tablet 02/21/19 Saccharomyces Boulardii [Florastor] 250 mg PO BID #10 capsule 02/21/19 - Allergies Allergies/Adverse Reactions: Allergies Allergy/AdvReac Type Severity Reaction Status Date / Time No Known Drug Allergies Allergy Verified 02/24/19 18:24 Review of Systems - Constitutional Constitutional: reports: Fatigue, Weakness. denies: Fever, Chills - Eyes Eyes: denies: Blurred vision, Vision loss, Dipolpia - Ears, Nose & Throat Ears, Nose & Throat: denies: Nasal pain, Nasal discharge, Sore throat, Hoarseness - Cardiovascular Cariovascular: denies: Irregular heart rate, Chest pain, Edema - Respiratory Respiratory: reports: Cough, Wheezing (right lung). denies: Sputum production, SOB at rest - Gastrointestinal Gastrointestinal: denies: Abdominal pain, Abdominal distention, Constipation, Change in bowel habits, Nausea, Vomiting, Coffee grounds emesis, Reflux/heartburn - Genitourinary Genitourinary: reports: Other (indwelling roldan cath) - Musculoskeletal Musculoskeletal: denies: Muscle pain, Back pain - Integumentary Integumentary: denies: Rash, Pruritis, Lesions - Neurological Neurological: reports: General weakness. denies: Focal weakness, Headache, Dizziness, Numbness - Psychiatric Psychiatric: denies: Depression, Anxiety - Endocrine Endocrine: denies: Polyuria, Polydypsia - Hematologic/Lymphatic Hematologic/Lymphatic: denies: Anemia, Bruising, Petechiae Prior Level of Functionality: Morbid obesity. Limited mobility. Short distances within home using front wheel walker at optimum baseline. Currently unable to do so. Daughter is caregiver. Patient is dependent for activities of daily living. Incontinent of urine and had indwelling roldan cath. Exam - Vital Signs Vital Signs: Vital Signs x48h Temp Pulse Resp BP Pulse Ox 02/24/19 20:15 77 19 142/66 H 95 02/24/19 18:39 18 02/24/19 18:22 36.8 C 77 18 159/59 H 94 - Physical Exam General Appearance: positive: No acute distress, Lethargic Eyes Bilateral: positive: Normal inspection, PERRL, EOMI ENT: positive: ENT inspection nml Neck: positive: Nml inspection, No JVD, Trachea midline Respiratory: positive: Chest non-tender, No respiratory distress, Other (crackles in right lung base) Cardiovascular: positive: Regular rate & rhythm Abdomen: positive: Non-tender, No organomegaly, No distention. negative: Guarding, Rebound Back: positive: Nml inspection Skin: positive: Other (some bruising noted. Patient on xarelto) Extremities: positive: Non-tender, Full ROM, Nml appearance, No pedal edema Neurologic/Psychiatric: positive: Oriented x3, Weakness (generalized) Conclusion/Plan - Problem List (1) UTI (urinary tract infection) Conclusion/Plan: Recent Urine cultures grew ESBL positive Klebsiella Patient was on Merrem in the hospital, then switched to augmentin upon discharge While UTI appears to persist, patient is not septic Will continue augmentin Gentle IV hydration Qualifiers: Urinary tract infection type: acute cystitis Hematuria presence: without hematuria Qualified Code(s): N30.00 - Acute cystitis without hematuria (2) Hyperkalemia Conclusion/Plan: Will hold lisinopril and spironolactone Patient given insulin and dextrose 50W Patient also received kayexalete On telemetry, Gentle IV hydration Repeat BMP 6 hrs from admission then with am labs Will hold lasix for now while gently hydrating. However if no improvement in potassium, may resume for the purpose of reducing potassium (3) Acute on chronic renal failure Conclusion/Plan: Not far from baseline. Cr currently 1.5 Monitor. Gentle hydration. Expect improvement Qualifiers: Chronic kidney disease stage: stage 3 (moderate) (4) CHF (congestive heart failure) Conclusion/Plan: Lisinopril, lasix and spironolactone currently on hold. Patient receiving gentle hydration as part of treatment for hyperkalemia Medication will be resumed when appropriate to do so Qualifiers: Heart failure type: diastolic (5) Diabetes mellitus type 2 in obese Conclusion/Plan: Accu checks, SSI (6) Decubitus ulcer, buttock Conclusion/Plan: Simple barrier cream for now Qualifiers: Pressure injury stage: stage 1 (7) Hypothyroidism Conclusion/Plan: Resume synthroid (8) HTN (hypertension) Conclusion/Plan: Lisinopril currently on hold. Patient also on metoprolol and imdur Currently normotensive. Will monitor for now If needed will add a prn antihypertensive (9) GERD (gastroesophageal reflux disease) Conclusion/Plan: Protonix ordered (10) DVT prophylaxis Conclusion/Plan: On xarelto - Lab Results Fish Bones: 02/25/19 05:06 02/25/19 05:06 Core Measures - Anticipated LOS I expect patient to be DC'd or transferred within 96 hours.: Yes - DVT/VTE - Prophylaxis VTE/DVT Device ordered at admit?: Yes VTE/DVT Prophylaxis med ordered at admit?: Yes
[2019-02-24] MEDS: SODIUM CHLORIDE 0.9% 1,000 ML IV SCH (22:10)
[2019-02-24] MEDS ORDERED: SODIUM CHLORIDE FLUSH 0.9% 10 ML SYRINGE ONE ×2 (23:01→23:25)
[2019-02-24 23:58] LABS: HB2 TOTAL 8.8 g/dL; HEMOGLOBIN A1C 0.49 g/dL; HEMOGLOBIN A1C % 7.2 % (4.6-6.2)
[2019-02-25] MEDS: SODIUM CHLORIDE FLUSH 0.9% 10 ML SYRINGE IVP SCH ×3 (00:05→06:41)
[2019-02-25] MEDS: AMOX/CLAV 875 MG/125 MG TABLET PO SCH ×3 (00:05→21:41)
[2019-02-25 00:13] LABS: CALCIUM 8.2 mg/dL (8.5-10.3); CREATININE 1.4 mg/dL (0.4-1.0)
[2019-02-25] MEDS: INSULIN GLARGINE 300 UNIT/3 ML PEN SUBQ SCH ×2 (00:44→21:42)
[2019-02-25] MEDS: SODIUM CHLORIDE 0.9% 1,000 ML IV SCH ×2 (05:07→15:02)
[2019-02-25 05:27] LABS: BASOPHILS # (AUTO) 0.1 10^3/uL (0.0-0.1); EOSINOPHILS # (AUTO) 0.2 10^3/uL (0.0-0.7); EOSINOPHILS % (AUTO) 1.9 %; HGB - HEMOGLOBIN 8.1 g/dL (12.0-16.0); LYMPHOCYTES # (AUTO) 0.9 10^3/uL (1.5-3.5); LYMPHOCYTES % (AUTO) 11.5 %; MEAN CORPUSCULAR HEMOGLOBIN 27.9 pg (27.0-31.0); MEAN CORPUSCULAR HGB CONC 30.5 g/dL (32.0-36.0); MEAN CORPUSCULAR VOLUME 91.5 fL (81.0-99.0); MEAN PLATELET VOLUME 7.9 fL (7.9-10.8); MONOCYTES # (AUTO) 0.8 10^3/uL (0.0-1.0); MONOCYTES % (AUTO) 9.8 %; NEUTROPHILS # (AUTO) 5.9 10^3/uL (1.5-6.6); NEUTROPHILS % (AUTO) 75.8 %; PLT - PLATELET COUNT 210 10^3/uL (130-450); RED BLOOD COUNT 2.91 10^6/uL (4.20-5.40); RED CELL DISTRIBUTION WIDTH 18.8 % (12.0-15.0); WHITE BLOOD COUNT 7.8 x10^3/uL (4.8-10.8)
[2019-02-25 05:39] LABS: CALCIUM 8.4 mg/dL (8.5-10.3); CREATININE 1.3 mg/dL (0.4-1.0)
[2019-02-25] MEDS: PANTOPRAZOLE 40 MG TABLET PO SCH (05:58)
[2019-02-25] MEDS ORDERED: SODIUM CHLORIDE 0.9% 500 ML IV ONE (06:01)
[2019-02-25] MEDS ORDERED: CALCIUM GLUCONATE 1,000 MG in SODIUM CHLORIDE 0.9% 50 ML IV ONE ×2 (06:01→07:00)
[2019-02-25] MEDS ORDERED: DEXTROSE 50% ABBOJECT 25 GM/50 ML SYRINGE IVP STA (06:04)
[2019-02-25] MEDS ORDERED: FUROSEMIDE 20 MG/2 ML VIAL IVP STA (06:04)
[2019-02-25] MEDS ORDERED: INSULIN REGULAR HUMAN 100 UNIT/1 ML 10 ML MDV IVP STA (06:07)
[2019-02-25] MEDS ORDERED: SODIUM POLYSTYRENE SULFONATE 15 GM/60 ML BOTTLE PO ONE (06:09)
[2019-02-25] MEDS ORDERED: CALCIUM GLUCONATE IV ONE ×2 (07:00→08:00)
[2019-02-25] MEDS ORDERED: CALCIUM GLUCONATE 1000 MG/10 ML VIAL IV ONE (07:00)
[2019-02-25] MEDS ORDERED: SODIUM CHLORIDE 0.9% IV ONE ×2 (07:00→08:00)
[2019-02-25] MEDS ORDERED: SODIUM CHLORIDE 0.9% MINIBAG 100 ML IV ONE (07:03)
[2019-02-25] MEDS ORDERED: BISACODYL 5 MG TABLET PO PRN (07:26)
[2019-02-25] MEDS ORDERED: HYDROcod/ACETAM 5/325 MG TABLET PO PRN (07:26)
[2019-02-25] MEDS ORDERED: DIPHENOX/ATROPINE 2.5/0.025 MG TABLET PO PRN (07:26)
[2019-02-25] MEDS: ASPIRIN EC 81 MG TABLET PO SCH (08:43)
[2019-02-25] MEDS: ISOSORBIDE MONONITRATE ER 30 MG TABLET PO SCH (08:44)
[2019-02-25] MEDS: SACCHAROMYCES BOULARDII 250 MG CAPSULE PO SCH ×2 (08:44→17:21)
[2019-02-25] MEDS: LACTOBACILLUS RHAMNOSUS GG CAPSULE PO SCH (08:44)
[2019-02-25] MEDS: METOPROLOL SUCCINATE 50 MG TABLET PO SCH (08:45)
[2019-02-25] MEDS: FERROUS SULFATE 325 MG TABLET PO SCH (08:45)
[2019-02-25] MEDS: INSULIN ASPART 300 UNIT/3 ML PEN SUBQ SCH ×4 (08:46→21:41)
[2019-02-25] MEDS: POLYETHYLENE GLYCOL 3350 17 GM PACKET PO SCH (08:46)
[2019-02-25] MEDS: NYSTATIN CREAM 15 GM TUBE TOP SCH ×2 (08:48→21:41)
[2019-02-25] MEDS ORDERED: cefTRIAXone 1 GM in SODIUM CHLORIDE 0.9% MINIBAG 100 ML IV SCH (09:00)
[2019-02-25] MEDS: LEVOTHYROXINE 75 MCG TABLET PO SCH (09:12)
--- NOTE | 2019-02-25 09:32 | MISCELLANEOUS PROVIDER NOTE ---
Miscellaneous Provider Note - - Note: HPI Comment/Other: Patient is a 74 y/o female who was discharged home from the [facility] on 02/21/19. She had presented during that admission with lethargy. She was diagnosed and treated for sepsis 2/2 UTI (ESBL Klebsiella) and pneumonia. Prior to discharge she was working with physical therapy and she was ambulating in her room. She got home and was able to transfer into bed. She slept all Sunday night, was very tired Sunday and slept most of the day. Today her daughter(who is her caregiver) was concerned because the patient was disoriented and weak. In the ED she was found to have a potassium level of 6.8, creatinine of 1.5 and her UA suggested persistence of a UTI. As a result she is being admitted for further management. She denies chest pain or ELI. However she has crackles on auscultation of the right lung. No abdominal pain. There is no significant edema. She was discharged home with physical therapy but has not had the opportunity to start working with them since it was the weekend. Subjective:Complaining of poor appetite Patient, weakness and currently nonspecific on her complaints. Patient has an indwelling Blanco catheter that was present on admission. Patient has history of pneumonias and UTIs in the past. Patient denies chest pain, shortness of breath, nausea, vomiting, does have some abdominal distention. No evidence of diarrhea, GI or symptoms. Next Objective: Vital signs hemodynamically stable, afebrile, heart rate of 80 bpm, blood pressure 149/69, RR 16, 94% O2 saturation on 3 L nasal cannula. General: Patient is chronically ill-appearing, alert and oriented x2 in no acute respiratory distress on supplemental oxygenation at 3 L nasal cannula, speaking full sentences HEENT: NCAT. Pupils are equal round react light accommodation extraocular muscle bilateral intact. No scleral icterus. Mild conjunctival pallor. Neck: No JVD no bruits no lymphadenopathy, trachea midline. CV/lungs: S1-S2 within normal limits, RRR, no murmurs, gallops, clicks, or rubs. Miild expiratory rhonchi bilaterally. No wheezing no retractions or increased work of breath. No rales. Abdomen: Soft mildly distended with tympany on percussion, no HSM, no rebound tenderness, no hernias. Extremities/skin: No edema clubbing or cyanosis. No back or Pap rashes. Neuro: DTRs are bilateral symmetric, sensory motor conserved. Labs: Reviewed Imaging studies: Reviewed Assessment/plan: (1) UTI (urinary tract infection) Conclusion/Plan: Recent Urine cultures grew ESBL positive Klebsiella, Sensitivities to Augmentin with an INES of 8. Patient was on Merrem in the hospital, then switched to augmentin upon discharge While UTI appears to persist, patient is not septic Will continue augmentin Gentle IV hydration Qualifiers: Urinary tract infection type: acute cystitis Hematuria presence: without hematuria Qualified Code(s): N30.00 - Acute cystitis without hematuria (2) Hyperkalemia Conclusion/Plan: This has improved with serial checks of potassium. We will continue to hold Lasix, lisinopril and Aldactone. Patient given insulin and dextrose 50W Patient also received kayexalete On telemetry, Gentle IV hydration Continue to follow and replace electrolyte disturbances. However if no improvement in potassium, may resume for the purpose of reducing potassium (3) Chronic kidney disease stage III Conclusion/Plan: Continue to avoid nephrotoxic agents. Lisinopril, Lasix, and Aldactone on hold. Patient's baseline creatinine 1.2-2.1 Monitor. Gentle hydration. Expect improvement Qualifiers: Chronic kidney disease stage: stage 3 (moderate) (4) [place] Heart Association class III CHF (congestive heart failure) Conclusion/Plan: Would be on guideline directed medical therapy however it was hyperkalemic and Aldactone, lisinopril and Lasix on hold. Prior Echocardiogram shows ejection fraction of 60 to 65% with grade 1 diastolic dysfunction (improved from prior EF). Pulmonary hypertension coexisting with a RVSP of 62 mmHg. Patient does have O2 dependency 3LNC with a history of COPD with emphysema but not an active exacerbation. Patient received gentle hydration as part of treatment for hyperkalemia. BNP to follow.Will need afterload reduction with resumption of isosorbide plus Metoprolol. Qualifiers: Heart failure type: diastolic (5) Diabetes mellitus type 2 in obese Conclusion/Plan: Hemoglobin A1c 7 2.2%. Accu checks, SSI, Bolus and basal coverage. Patient complains of poor appetite. (6) Decubitus ulcer, buttock Conclusion/Plan: Simple barrier cream for now Qualifiers: Pressure injury stage: stage 1 (7) Hypothyroidism Conclusion/Plan: Resume synthroid (8) HTN (hypertension) Conclusion/Plan: Lisinopril, Lasix and Aldactone currently on hold. Patient also on metoprolol and imdur Currently normotensive. Will monitor for now, Has previous history of orthostasis and is on Midodrine will continue at 2.5 mg p.o. 3 times daily PRN with parameters. If needed will add a prn antihypertensive (9) GERD (gastroesophageal reflux disease) Conclusion/Plan: Protonix ordered (10) DVT prophylaxis Conclusion/Plan: Xarelto to continue (11) Failure to thrive with poor oral intake. Consider placing on Megace and low-dose Remeron GI prophylaxis continue. CODE STATUS with limited Interventions as per POLST on 09/02/2018
[2019-02-25 10:14] LABS: CALCIUM 8.3 mg/dL (8.5-10.3); CREATININE 1.4 mg/dL (0.4-1.0)
[2019-02-25] MEDS: MEGESTROL 400 MG/10 ML UDC PO SCH (11:44)
[2019-02-25] MEDS: SODIUM CHLORIDE FLUSH 0.9% 10 ML SYRINGE IVP PRN (12:36)
[2019-02-25] MEDS: MIN OIL/DIMETHICON/COCONUT OIL 92 GM TUBE TOP PRN (12:36)
[2019-02-25] MEDS: SIMETHICONE CHEW 80 MG TABLET PO SCH ×3 (13:39→21:41)
[2019-02-25] MEDS ORDERED: MIDODRINE 2.5 MG TABLET PO SCH (14:00)
[2019-02-25] MEDS ORDERED: MIDODRINE 2.5 MG TABLET PO PRN (14:24)
[2019-02-25] MEDS: RIVAROXABAN 15 MG TABLET PO SCH (17:21)
[2019-02-25] MEDS ORDERED: MIRTAZAPINE 15 MG TABLET PO SCH (21:00)
[2019-02-25] MEDS: ATORVASTATIN 40 MG TABLET PO SCH (21:41)
[2019-02-26] MEDS: MIN OIL/DIMETHICON/COCONUT OIL 92 GM TUBE TOP PRN ×3 (01:00→22:38)
[2019-02-26] MEDS: SODIUM CHLORIDE 0.9% 1,000 ML IV SCH (01:54)
[2019-02-26] MEDS: SODIUM CHLORIDE FLUSH 0.9% 10 ML SYRINGE IVP SCH ×3 (01:55→16:59)
[2019-02-26 05:42] LABS: BASOPHILS # (AUTO) 0.1 10^3/uL (0.0-0.1); BASOPHILS % (AUTO) 0.8 %; EOSINOPHILS # (AUTO) 0.1 10^3/uL (0.0-0.7); HGB - HEMOGLOBIN 8.2 g/dL (12.0-16.0); LYMPHOCYTES # (AUTO) 1.1 10^3/uL (1.5-3.5); LYMPHOCYTES % (AUTO) 16.3 %; MEAN CORPUSCULAR HEMOGLOBIN 28.4 pg (27.0-31.0); MEAN CORPUSCULAR HGB CONC 31.1 g/dL (32.0-36.0); MEAN CORPUSCULAR VOLUME 91.4 fL (81.0-99.0); MEAN PLATELET VOLUME 7.9 fL (7.9-10.8); MONOCYTES # (AUTO) 0.6 10^3/uL (0.0-1.0); MONOCYTES % (AUTO) 9.3 %; NEUTROPHILS # (AUTO) 4.9 10^3/uL (1.5-6.6); NEUTROPHILS % (AUTO) 71.6 %; PLT - PLATELET COUNT 190 10^3/uL (130-450); RED BLOOD COUNT 2.88 10^6/uL (4.20-5.40); RED CELL DISTRIBUTION WIDTH 18.7 % (12.0-15.0); WHITE BLOOD COUNT 6.8 x10^3/uL (4.8-10.8)
[2019-02-26 05:54] LABS: CALCIUM 8.1 mg/dL (8.5-10.3); CREATININE 1.2 mg/dL (0.4-1.0)
[2019-02-26] MEDS: LEVOTHYROXINE 75 MCG TABLET PO SCH (06:13)
[2019-02-26] MEDS: PANTOPRAZOLE 40 MG TABLET PO SCH (06:13)
[2019-02-26] MEDS ORDERED: FUROSEMIDE 20 MG TABLET PO SCH (09:00)
[2019-02-26] MEDS: INSULIN ASPART 300 UNIT/3 ML PEN SUBQ SCH ×4 (09:27→21:20)
[2019-02-26] MEDS: MEGESTROL 400 MG/10 ML UDC PO SCH (09:27)
[2019-02-26] MEDS: ASPIRIN EC 81 MG TABLET PO SCH (10:08)
[2019-02-26] MEDS: SACCHAROMYCES BOULARDII 250 MG CAPSULE PO SCH ×2 (10:08→16:55)
[2019-02-26] MEDS: SIMETHICONE CHEW 80 MG TABLET PO SCH ×4 (10:10→21:19)
[2019-02-26] MEDS: FERROUS SULFATE 325 MG TABLET PO SCH (10:10)
[2019-02-26] MEDS: METOPROLOL SUCCINATE 50 MG TABLET PO SCH (10:11)
[2019-02-26] MEDS: AMOX/CLAV 875 MG/125 MG TABLET PO SCH (10:12)
[2019-02-26] MEDS: LACTOBACILLUS RHAMNOSUS GG CAPSULE PO SCH (10:12)
[2019-02-26] MEDS: ISOSORBIDE MONONITRATE ER 30 MG TABLET PO SCH (10:12)
[2019-02-26] MEDS: LISINOPRIL 5 MG TABLET PO SCH (10:12)
[2019-02-26] MEDS: POLYETHYLENE GLYCOL 3350 17 GM PACKET PO SCH (10:13)
[2019-02-26] MEDS: NYSTATIN CREAM 15 GM TUBE TOP SCH ×2 (10:14→21:20)
[2019-02-26] MEDS: METHENAMINE HIPPURATE 1 GM TABLET PO SCH ×2 (12:28→21:19)
[2019-02-26] MEDS: SODIUM CHLORIDE FLUSH 0.9% 10 ML SYRINGE IVP PRN ×2 (12:39→19:39)
[2019-02-26] MEDS ORDERED: FLUCONAZOLE 100 MG TABLET PO ONE (14:00)
--- NOTE | 2019-02-26 14:00 | MISCELLANEOUS PROVIDER NOTE ---
Miscellaneous Provider Note - - Note: HPI Comment/Other: Patient is a 74 y/o female who was discharged home from the [facility] on 02/21/19. She had presented during that admission with lethargy. She was diagnosed and treated for sepsis 2/2 UTI (ESBL Klebsiella) and pneumonia. Prior to discharge she was working with physical therapy and she was ambulating in her room. She got home and was able to transfer into bed. She slept all Sunday night, was very tired Sunday and slept most of the day. Today her daughter(who is her caregiver) was concerned because the patient was disoriented and weak. In the ED she was found to have a potassium level of 6.8, creatinine of 1.5 and her UA suggested persistence of a UTI. As a result she is being admitted for further management. She denies chest pain or ELI. However she has crackles on auscultation of the right lung. No abdominal pain. There is no significant edema. She was discharged home with physical therapy but has not had the opportunity to start working with them since it was the weekend. Subjective: Patient with no acute overnight events. Patient with improved appetite. However she was somewhat somnolent this morning. Objective: Vital signs hemodynamically stable, afebrile, Heart rate 93 bpm, blood pressure 150/64, RR 18, 90% O2 saturation 3 L nasal cannula General: Patient appears somnolent. Patient is chronically ill-appearing, alert and oriented x2 in no acute respiratory distress. HEENT: NCAT. Pupils are equal round react light accommodation extraocular muscle bilateral intact. No scleral icterus. Mild conjunctival pallor. Neck: No JVD no bruits no lymphadenopathy, trachea midline. CV/lungs: S1-S2 within normal limits, RRR, no murmurs, gallops, clicks, or rubs. No rhonchi. No wheezing no retractions or increased work of breath. No rales. Abdomen: Soft mildly distended with tympany on percussion, no HSM, no rebound tenderness, no hernias. Extremities/skin: No edema clubbing or cyanosis. No back or Pap rashes. Neuro: DTRs are bilateral symmetric, sensory motor conserved. Labs: Reviewed Imaging studies: Reviewed Assessment/plan: (1) Acute on chronic hypoxemic/hypercarbic respiratory failure Patient is on O2 dependence at home with 3 L nasal cannula. However increasingly somnolent today and at 90 to 91% O2 saturation on 3 L nasal cannula. Will provide noninvasive positive pressure ventilation in the setting of patient's somnolence as well as BNP being slightly elevated at 414. Will also place on Diamox for excretion of excess CO2 as she is at risk of CO2 narcosis and further CO2 retention. (2) UTI (urinary tract infection), Yeast Conclusion/Plan: Patient was on Merrem in the hospital, then switched to augmentin upon discharge. Recent Urine culture On 02/16 grew ESBL positive Klebsiella, Sensitivities to Augmentin with an INES of 8. This is now continued for approximately 10 days. Will discontinue as patient has a urine culture that was present on admission growing more than 100 K of yeast will give 1 dose of Diflucan 150 mg p.o. x1 Qualifiers: Urinary tract infection type: acute cystitis Hematuria presence: without hematuria Qualified Code(s): N30.00 - Acute cystitis without hematuria (3) Hyperkalemia, Resolved Conclusion/Plan: Aldactone currently on hold, will reinitiate Lasix and lisinopril. Patient was already given insulin, dextrose 50, Kayexalate, IV fluids which will now be saline lock. (4) Chronic kidney disease stage III Conclusion/Plan: Continue to avoid nephrotoxic agents. Lisinopril, Lasix, and Aldactone on hold. Patient's baseline creatinine 1.2-2.1 Monitor. Gentle hydration. Expect improvement Qualifiers: Chronic kidney disease stage: stage 3 (moderate) (5) [place] Heart Association class III CHF (congestive heart failure) Conclusion/Plan: Would be on guideline directed medical therapy, Isosorbide, metoprolol to continue as well as Lasix. Continue to hold Aldactone for now. Prior Echocardiogram shows ejection fraction of 60 to 65% with grade 1 diastolic dysfunction (improved from prior EF). Pulmonary hypertension coexisting with a RVSP of 62 mmHg. Patient does have O2 dependency 3LNC with a history of COPD with emphysema but not an active exacerbation. Qualifiers: Heart failure type: diastolic (6) Diabetes mellitus type 2 in obese Conclusion/Plan: Hemoglobin A1c 7 2.2%. Accu checks, SSI, Bolus and basal coverage. Patient has good oral intake now. (7) Decubitus ulcer, buttock, Present on admission Conclusion/Plan: Simple barrier cream for now Qualifiers: Pressure injury stage: stage 1 (8) Hypothyroidism Conclusion/Plan: Continue with Synthroid (9) HTN (hypertension) Conclusion/Plan: Lisinopril and Lasix restarted, Aldactone on hold Patient also on metoprolol and imdur Has previous history of orthostasis and is on Midodrine will continue at 2.5 mg p.o. 3 times daily PRN with parameters. If needed will add a prn antihypertensive (10) GERD (gastroesophageal reflux disease) Conclusion/Plan: Continue Protonix (11) DVT prophylaxis Conclusion/Plan: Xarelto to continue (11) Failure to thrive with poor oral intake. Improved Consider placing on Megace and low-dose Remeron GI prophylaxis continue. CODE STATUS with limited Interventions as per POLST on 09/02/2018
[2019-02-26] MEDS: MULTIVITAMIN W/MINERALS TABLET PO SCH (16:55)
[2019-02-26] MEDS: RIVAROXABAN 15 MG TABLET PO SCH (16:56)
[2019-02-26 18:07] LABS: ABG BASE EXCESS -0.8 mmol/L (-2.0-3.0); ABG HCO3 26.7 mmol/L (22.0-26.0); ABG PH 7.26 (7.35-7.45); ABG PO2 69 mmHg (80-100); ABG TCO2 28.6 MMOL/L (21.0-29.0)
[2019-02-26 18:08] LABS: ABG OXYGEN SATURATION 92 % (94-98); ALLEN TEST POSITIVE
[2019-02-26 18:11] LABS: ABG PCO2 61 mmHg (34-45)
[2019-02-26] MEDS: FUROSEMIDE 20 MG/2 ML VIAL IVP SCH (19:39)
[2019-02-26] MEDS: INSULIN GLARGINE 300 UNIT/3 ML PEN SUBQ SCH (21:19)
[2019-02-26] MEDS: ATORVASTATIN 40 MG TABLET PO SCH (21:19)
[2019-02-26 21:33] LABS: ABG BASE EXCESS 2.1 mmol/L (-2.0-3.0); ABG HCO3 29.1 mmol/L (22.0-26.0); ABG OXYGEN SATURATION 96 % (94-98); ABG PCO2 59 mmHg (34-45); ABG PH 7.31 (7.35-7.45); ABG PO2 87 mmHg (80-100); ABG TCO2 30.9 MMOL/L (21.0-29.0); ALLEN TEST POSITIVE
[2019-02-27] MEDS: SODIUM CHLORIDE FLUSH 0.9% 10 ML SYRINGE IVP SCH ×2 (00:08→08:32)
[2019-02-27 05:46] LABS: BASOPHILS # (AUTO) 0.1 10^3/uL (0.0-0.1); BASOPHILS % (AUTO) 0.8 %; EOSINOPHILS # (AUTO) 0.1 10^3/uL (0.0-0.7); EOSINOPHILS % (AUTO) 1.4 %; HGB - HEMOGLOBIN 8.2 g/dL (12.0-16.0); LYMPHOCYTES # (AUTO) 1.4 10^3/uL (1.5-3.5); LYMPHOCYTES % (AUTO) 16.3 %; MEAN CORPUSCULAR HEMOGLOBIN 27.9 pg (27.0-31.0); MEAN CORPUSCULAR HGB CONC 30.7 g/dL (32.0-36.0); MEAN CORPUSCULAR VOLUME 90.8 fL (81.0-99.0); MEAN PLATELET VOLUME 8.3 fL (7.9-10.8); MONOCYTES # (AUTO) 0.8 10^3/uL (0.0-1.0); MONOCYTES % (AUTO) 8.9 %; NEUTROPHILS # (AUTO) 6.3 10^3/uL (1.5-6.6); NEUTROPHILS % (AUTO) 72.6 %; PLT - PLATELET COUNT 200 10^3/uL (130-450); RED BLOOD COUNT 2.93 10^6/uL (4.20-5.40); RED CELL DISTRIBUTION WIDTH 19.1 % (12.0-15.0); WHITE BLOOD COUNT 8.6 x10^3/uL (4.8-10.8)
[2019-02-27 05:48] LABS: CALCIUM 8.3 mg/dL (8.5-10.3); CREATININE 1.5 mg/dL (0.4-1.0)
[2019-02-27] MEDS: MIN OIL/DIMETHICON/COCONUT OIL 92 GM TUBE TOP PRN ×2 (06:00)
[2019-02-27] MEDS: LEVOTHYROXINE 75 MCG TABLET PO SCH (06:22)
[2019-02-27] MEDS: FUROSEMIDE 20 MG/2 ML VIAL IVP SCH (06:22)
[2019-02-27] MEDS: PANTOPRAZOLE 40 MG TABLET PO SCH (06:22)
[2019-02-27] MEDS: SODIUM CHLORIDE FLUSH 0.9% 10 ML SYRINGE IVP PRN (06:22)
[2019-02-27] MEDS: INSULIN ASPART 300 UNIT/3 ML PEN SUBQ SCH ×2 (08:02→11:53)
[2019-02-27] MEDS: METHENAMINE HIPPURATE 1 GM TABLET PO SCH (08:18)
[2019-02-27] MEDS: LISINOPRIL 5 MG TABLET PO SCH (08:19)
[2019-02-27] MEDS: FERROUS SULFATE 325 MG TABLET PO SCH (08:20)
[2019-02-27] MEDS: ISOSORBIDE MONONITRATE ER 30 MG TABLET PO SCH (08:20)
[2019-02-27] MEDS: ASPIRIN EC 81 MG TABLET PO SCH (08:21)
[2019-02-27] MEDS: METOPROLOL SUCCINATE 50 MG TABLET PO SCH (08:23)
[2019-02-27] MEDS: MULTIVITAMIN W/MINERALS TABLET PO SCH (08:23)
[2019-02-27] MEDS: LACTOBACILLUS RHAMNOSUS GG CAPSULE PO SCH (08:29)
[2019-02-27] MEDS: SACCHAROMYCES BOULARDII 250 MG CAPSULE PO SCH (08:29)
[2019-02-27] MEDS: NYSTATIN CREAM 15 GM TUBE TOP SCH (08:30)
[2019-02-27] MEDS: MEGESTROL 400 MG/10 ML UDC PO SCH (08:30)
[2019-02-27] MEDS: POLYETHYLENE GLYCOL 3350 17 GM PACKET PO SCH (08:31)
[2019-02-27] MEDS: SIMETHICONE CHEW 80 MG TABLET PO SCH ×2 (08:32→13:32)
--- NOTE | 2019-02-27 09:32 | MISCELLANEOUS PROVIDER NOTE ---
Miscellaneous Provider Note - - Note: HPI Comment/Other: Patient is a 74 y/o female who was discharged home from the [facility] on 02/21/19. She had presented during that admission with lethargy. She was diagnosed and treated for sepsis 2/2 UTI (ESBL Klebsiella) and pneumonia. Prior to discharge she was working with physical therapy and she was ambulating in her room. She got home and was able to transfer into bed. She slept all Sunday night, was very tired Sunday and slept most of the day. Today her daughter(who is her caregiver) was concerned because the patient was disoriented and weak. In the ED she was found to have a potassium level of 6.8, creatinine of 1.5 and her UA suggested persistence of a UTI. As a result she is being admitted for further management. She denies chest pain or ELI. However she has crackles on auscultation of the right lung. No abdominal pain. There is no significant edema. She was discharged home with physical therapy but has not had the opportunity to start working with them since it was the weekend. Subjective: Patient with no acute overnight events. Patient with improved appetite. However she was somewhat somnolent this morning. Objective: Vital signs hemodynamically stable, Afebrile, heart rate of 80 bpm, blood pressure 90/40, respiratory rate 18, 94% O2 saturation on 3 L nasal cannula. General: Patient is more lucid and awake today with conversing verbally. Patient is chronically ill-appearing, alert and oriented x3 in no acute respiratory distress. HEENT: NCAT. Pupils are equal round react light accommodation extraocular muscle bilateral intact. No scleral icterus. Mild conjunctival pallor. Neck: No JVD no bruits no lymphadenopathy, trachea midline. CV/lungs: S1-S2 within normal limits, RRR, no murmurs, gallops, clicks, or rubs. No rhonchi. No wheezing no retractions or increased work of breath. No rales. Abdomen: Soft mildly distended with tympany on percussion, no HSM, no rebound tenderness, no hernias. Extremities/skin: No edema clubbing or cyanosis. No back or Pap rashes. Neuro: DTRs are bilateral symmetric, sensory motor conserved. Labs: Reviewed Imaging studies: Reviewed Assessment/plan: (1) Acute on chronic hypoxemic/hypercarbic respiratory failure Improved. Continue with 3 L nasal cannula which is patient's baseline O2 dependence currently off of BiPAP. Transfer back to [facility]. Multifactorial cause as BNP was slightly elevated at 414. Consider repeating chest x-ray. Continue with Lasix for diuresis, Diamox given temporarily for bicarb excretion. Patient has drug drug interaction with Hiprex and Diamox. Patient also has concomitant chronic respiratory acidosis with compensatory metabolic alkalosis as evidenced by last ABG. PO2 improved to 87 now, PCO2 down to 59. (2) UTI (urinary tract infection), Yeast Conclusion/Plan: Patient was on Merrem in the hospital, then switched to augmentin upon discharge. Recent Urine culture On 02/16 grew ESBL positive Klebsiella, Sensi tivities to Augmentin with an INES of 8. This is now continued for approximately 10 days. Will discontinue as patient has a urine culture that was present on admission growing more than 100 K of yeast Status post Diflucan 150 mg p.o. x1. Patient has an indwelling Blanco catheter and is a nidus for infection. Will need to exchange Blanco catheter per duration protocol. Urinary tract infection type: acute cystitis Hematuria presence: without hematuria Qualified Code(s): N30.00 - Acute cystitis without hematuria (3) Hyperkalemia, Resolved Conclusion/Plan: Patient's potassium is 3.6 currently off of Aldactone and lisinopril was restarted but will be placed on hold due to low BPs, reinitiated Lasix and Diamox which may affect potassium levels as well. (4) Chronic kidney disease stage III Conclusion/Plan: Continue to avoid nephrotoxic agents. Hold lisinopril for now, continue with Lasix. Continue to hold Aldactone for now. Current creatinine of 1.5 Patient's baseline creatinine 1.2-2.1. We will hold off on Diamox as well as this is a drug drug interaction with Hiprex which may precipitate crystals and cause uric acid stones. Monitor. Gentle hydration. Expect improvement Qualifiers: Chronic kidney disease stage: stage 3 (moderate) (5) [place] Heart Association class III CHF (congestive heart failure) Conclusion/Plan: Would be on guideline directed medical therapy, Isosorbide, metoprolol to continue as well as Lasix. Continue to hold Aldactone for now. Prior Echocardiogram shows ejection fraction of 60 to 65% with grade 1 diastolic dysfunction (improved from prior EF). Pulmonary hypertension coexisting with a RVSP of 62 mmHg. Patient does have O2 dependency 3LNC with a history of COPD with emphysema but not an active exacerbation. Qualifiers: Heart failure type: diastolic (6) Diabetes mellitus type 2 in obese Conclusion/Plan: Hemoglobin A1c 7 2.2%. Accu checks, SSI, Bolus and basal coverage. Patient has good oral intake now. (7) Decubitus ulcer, buttock, Present on admission Conclusion/Plan: Simple barrier cream for now Qualifiers: Pressure injury stage: stage 1 (8) Hypothyroidism Conclusion/Plan: Continue with Synthroid (9) HTN (hypertension) Conclusion/Plan: Due to patient's low BPs will hold Lisinopril, Continue with Lasix, Aldactone on hold Patient also on metoprolol and imdur Has previous history of orthostasis and is on Midodrine will continue at 2.5 mg p.o. 3 times daily PRN with parameters. If needed will add a prn antihypertensive (10) GERD (gastroesophageal reflux disease) Conclusion/Plan: Continue Protonix (11) DVT prophylaxis Conclusion/Plan: Xarelto to continue (11) Failure to thrive with poor oral intake. Improved Consider placing on Megace. Remeron was placed on hold due to patient's somnolence. GI prophylaxis continue. CODE STATUS with limited Interventions as per POLST on 09/02/2018
--- NOTE | 2019-02-27 11:14 | Discharge Plan ---
"Discharge Plan for SNF / [facility] - Discharge Plan And Transition Orders Disposition: 03 SNF DC/Xfer Condition: Fair Allergies and Adverse Reactions: Allergies Allergy/AdvReac Type Severity Reaction Status Date / Time No Known Drug Allergies Allergy Verified 02/24/19 18:24 - SNF / RESIDENTIAL Transition Orders Admit to (Facility): [facility] Under the care of (Name): Jose Luis Metcalf Medicare Certification Statement: I certify that [facility] snf care is medically necessary on a continuing basis for any of the conditions for which she/he is receiving care during hospitalization. Notify PCP of admission and forward orders to primary provider for signature. Weight on admission and: Daily Other Notification Orders: Call PCP immediately if patient develops dyspnea, chest pain/tightness or edema. Additional Bowel Program Orders: If no BM after 2 days, nurse may give M.O.M. 30ml PO PRN and/or ducolax Supp 1 ID and/or MICH 250mg P.O., and/or senna 1-2 tabs PO. On day 3 nurse may give repeat above order until residents constipation is resolved. Annual Influenza Vaccine (between Jun 01 and December 29): Yes Two-step PPD per [facility] [id number] or approved exception documents: No Treatments & Other Orders: See discharge MAR Oxygen Orders: Continue with baseline 3 L nasal cannula patient is O2 dependent. To titrate oxygen for a pulse ox above 90% Lab Tests or X-ray Orders: Obtain a chest x-ray portable 1 view on 03/01/2019 To evaluate for CHF or pneumonia Medication Orders: PLEASE REFER TO THE DISCHARGE MEDICATION LIST. Insulin Orders?: Yes - Medications New Prescriptions: Megestrol Acetate [Megace Es] 625 mg PO BID #150 ml - Diet Type: No added salt (Carb controlled diet) Texture: Regular (Carb controlled) Liquids: Thin May have monthly special meal: Yes - Therapies | Activity Therapy: Evaluation | Treat if indicated: PT, OT Rehabilitation Potential: Maximize functional status, Return to independent living, Maintain present ADL Functional Activity: Activity as Tolerated Additional Instructions: You were admitted for excessive potassium that was found on your blood test which may have precipitated weakness, loss of appetite and possible complications that may have involved your diuretics. We placed a hold on your Aldactone as well as your lisinopril for now. You were found to have another urinary tract infection in the setting of your chronic indwelling Blanco catheter. Augmentin was initially prescribed to you which you did take 4. Of 10 days however this precipitated you to have a yeast infection which was also addressed with 1 dose of Diflucan. In addition, due to your prolonged antibiotic use you are at risk of developing an opportunistic infection known as C. difficile a with associated diarrhea. We will send out your stools in order to rule out this possibility. I had added a probiotic to help you alleviate and restore some of the your gut microbiota. In addition, you do have chronic hypoxemic respiratory failure which is a low oxygen saturation that you may reach at times when your carbon dioxide goes up as well which may cause further sleepiness and somnolence. We will send out for a BiPAP which will assist you in ventilating and perfusing her lungs in order to so you can be more alert awak e and conscious as it pertains to your COPD. You did not have a pneumonia on this visitation. In addition your chronic kidney disease is stable and is currently had a stage III. You were placed on home medications with the exception of certain medications that were held due to your kidneys and excessive rise in potassium. In addition we will provide prophylaxis for any urinary tract infections with a product called Hiprex that will be dispensed at your snf facility. He will continue with physical therapy, occupational therapy, and further medical management in order to return to your baseline mental status, strengthening, and improving her gait in order to return to the community and ultimately at home. Your sugars will be continually controlled with Insulin sliding scale along with Lantus. You will continue with your carb controlled diet for your diabetes. You will be scheduled to return to your primary care provider in about 2 to 3 weeks time. Follow Up: Please follow-up with your PCP Jose Luis Metcalf in about 2 to 3 weeks time. Insulin Orders - SNF Basal | Correction | Custom Orders: Diagnosis: Diabetes Initiate hypo and hyperglycemia protocols for BG <70 and BG >375. May check BG PRN for signs/symptoms of dysglycemia. Frequency of BG checks: [AC/Meal/HS] Basal Insulin: [X] Lantus 100 units / ml inject subq as follows: [5 units subcu every afternoon] [] Other: [] Correction Insulin: - Select the type of insulin below [Choose: Novolog/Humalog]100 units /ml insulin inject subq per orders indicate below [] LOW DOSE [X] MODERATE DOSE [] MODERATE/HIGH DOSE [] HIGH DOSE GB UNITS GB UNITS GB UNITS GB UNITS 61-140 0 UNITS 61-140 0 UNITS 61-140 0 UNITS 61-140 0 UNITS 141-175 1 UNITS 141-175 1 UNITS 141-175 2 UNITS 141-175 3 UNITS 176-225 2 UNITS 176-225 3 UNITS 176-225 4 UNITS 176-225 5 UNITS 226-275 3 UNITS 226-275 5 UNITS 226-275 6 UNITS 226-275 7 UNITS 276-325 4 UNITS 276-325 7 UNITS 276-325 8 UNITS 276-325 9 UNITS 326-375 5 UNITS 326-375 9 UNITS 326-375 10 UNITS 326-375 11 UNITS >375 CONTACT MD >375 CONTACT MD >375 CONTACT MD >375 CONTACT MD Custom Dosing: [Choose: Novolog/Humalog] 100 units/ml Insulin inject subq as follows: GB Units 61-140 [] Units 141-175 [] Units 176-225 [] Units 226-275 [] Units 276-325 []Units 326-375 [] Units >375 Contact MD"
--- NOTE | 2019-02-27 11:37 | DISCHARGE SUMMARY ---
"Discharge Summary Admit Date: 02/24/19 Discharge Date: 02/27/19 Discharging Provider: Dr. Garcia Primary Care Provider: Jose Luis Metcalf Code Status: Do Not Attempt Resuscitation Condition at Discharge: Fair Discharge Disposition: 03 SNF DC/Xfer - DIAGNOSES Admission Diagnoses: (1) UTI (urinary tract infection) (2) Hyperkalemia (3) Acute on chronic renal failure (4) CHF (congestive heart failure) (5) Diabetes mellitus type 2 in obese (6) Decubitus ulcer, buttock (7) Hypothyroidism (8) HTN (hypertension) (9) GERD (gastroesophageal reflux disease) (10) DVT prophylaxis Discharge Diagnoses with Status of Each Condition: (1) Acute on chronic hypoxemic/hypercarbic respiratory failure sec to COPD/Diastolic HF exacerbation, improved (2) COPD with O2 dependence, without exacerbation, stable (3)UTI (urinary tract infection), Yeast, resolving (4) Hyperkalemia, Resolved (5) Acute on chronic renal failure, Chronic kidney disease stage III, Stable (6) CHF (congestive heart failure), Diastolic heart failure NYHA class III, Stable (7) Diabetes mellitus type 2 in obese, Stable (8) Decubitus ulcer, buttock, Stable (9) Hypothyroidism, Stable (10) HTN (hypertension), Stable (11) GERD (gastroesophageal reflux disease), Stable (12) DVT prophylaxis, On Xarelto, stable (13) history of C. difficile, with loose stools, C. difficile pending stable - HPI History of Present Illness: Patient is a 74 y/o female who was discharged home from the [facility] on 02/21/19. She had presented during that admission with lethargy. She was diagnosed and treated for sepsis 2/2 UTI (ESBL Klebsiella) and pneumonia. Prior to discharge she was working with physical therapy and she was ambulating in her room. She got home and was able to transfer into bed. She slept all Sunday n igh, was very tired Sunday and slept most of the day. Today her daughter(who is her caregiver) was concerned because the patient was disoriented and weak. In the ED she was found to have a potassium level of 6.8, creatinine of 1.5 and her UA suggested persistence of a UTI. As a result she is being admitted for further management. She denies chest pain or ELI. However she has crackles on auscultation of the right lung. No abdominal pain. There is no significant edema. She was discharged home with physical therapy but has not had the opportunity to start working with them since it was the weekend. - CONSULTS | PROCEDURES Consultations: Palliative care service - HOSPITAL COURSE Hospital Course: Ms. Aurora Pillai is a chronically ill patient with multiple cardiovascular comorbidities and prior pneumonias and UTIs presented with hyperkalemia with no hyper acute T waves or arrhythmias, recurrence of UTI which was deemed to be yeast and was receiving Augmentin for which she finished a 10-day course. Patient was subsequently given medical management, IV fluids, and Aldactone as well as other diuretics and blood pressure medications were held. Patient was managed medically and supportive to supportively however developed acute on chronic hypoxemic respiratory failure for which she has O2 dependence from her COPD. Patient was found to have chronic respiratory acidosis with compensatory metabolic alkalosis as evidenced by her serial ABGs. Patient showed an elevated BNP with some pulmonary vascular congestion and was given BiPAP with subsequent resolution and decrease in her PCO2 levels along with an elevation her PO2 level back to 87 upon discharge. Patient's creatinine was at 1.5 with baseline 1.2- 2.0, lisinopril was held as well as Aldactone. In addition patient had mid a drain at 2.5 mg p.o. 3 times daily PRN for orthostasis. Patient is on Xarelto with a GFR 34 to avoid use if creatinine clearance is less than 30. Patient's hemoglobin was at yari at 8.2 with a history of anemia of chronic disease with no evidence of precipitous drops or acute blood loss anemia. Patient was given 1 dose of Diet: Diflucan 150 mg p.o. for her yeast. Patient developed loose stools and does have a history of C. difficile in the past and C. difficile was sent off for collection and pending upon discharge. Patient was also placed on Diamox for hypercarbia which was related to her hypoventilation as it was a multifactorial component of an acute diastolic heart failure exacerbation which she did receive afterload reduction and medical management for. Patient was restarted on her Lasix however lisinopril was being placed on hold due to her transient hypotension. In addition pharmacy alerted me that Hiprex has interactions with Diamox and is contraindicated due to the formation of possible uric acid crystals and stone formation. Upon discharge patient was hemodynamically stable and was accepted to [facility] to continue physical therapy occupational therapy and medical management as well as intermittent BiPAP if needed. Patient did have palliative care consultation requested and I spoke to Bell Lim NP Who had seen patient in the past and essentially has no impact on her overall decision on her poor prognosis and medical care without indications for hospice at this time. Patient was instructed to return to PCP in 2 3 weeks, Jose Luis Metcalf will be following patient at [facility]. - ALLERGIES Allergies/Adverse Reactions: Allergies Allergy/AdvReac Type Severity Reaction Status Date / Time No Known Drug Allergies Allergy Verified 02/24/19 18:24 - MEDICATIONS Home Medications: Ambulatory Orders Medication Instructions Recorded Confirmed Atorvastatin Calcium 40 mg PO QPM 11/13/17 02/25/19 HYDROcod/ACETAM 5/325 [[place] 5/325] 1 tab PO TID PRN 11/13/17 02/25/19 Isosorbide Mononitrate ER [Imdur] 30 mg PO DAILY #60 tablet 11/15/17 02/25/19 Metoprolol Succinate [Toprol Xl] 50 mg PO DAILY #60 tablet 11/15/17 02/25/19 Bisacodyl [Dulcolax] 5 mg PO BID PRN 11/05/18 02/25/19 Rivaroxaban [Xarelto] 15 mg PO QDDINNER 11/05/18 02/25/19 Diphenoxylate HCl/Atropine 1 tab PO QID PRN 02/17/19 02/25/19 [Diphenoxylate-Atrop 2.5-0.025] Nystatin 1 applic TOP BID 02/17/19 02/25/19 Saccharomyces Boulardii [Florastor] 250 mg PO BIDWM 02/17/19 02/25/19 Aspirin [Aspirin EC] 81 mg PO DAILY #30 tablet. 02/21/19 02/25/19 Ferrous Sulfate 325 mg PO DAILY #30 tablet 02/21/19 02/25/19 Furosemide 20 mg PO MOWEFR #15 tablet 02/21/19 02/25/19 Midodrine 2.5 mg PO TID #90 tablet 02/21/19 02/25/19 Insulin Aspart [NovoLOG] 1 - 9 unit SUBQ 02/27/19 0800,1200,1700,2100 pen Insulin Glargine [Lantus Solostar] 5 unit SUBQ QPM pen 02/27/19 Lactobacillus Rhamnosus GG 1 cap PO DAILY capsule 02/27/19 [Culturelle] Levothyroxine [Synthroid] 150 mcg PO QDAC tablet 02/27/19 Megestrol Acetate [Megace Es] 625 mg PO BID #150 ml 02/27/19 Methenamine Hippurate [Hiprex] 1 gm PO BID tablet 02/27/19 Multivitamin W/Minerals [Theragran 1 tab PO DAILYWM tablet 02/27/19 M] Pantoprazole [Protonix] 40 mg PO QDAC tablet 02/27/19 Polyethylene Glycol 3350 [Miralax] 17 gm PO DAILY packet 02/27/19 - PHYSICAL EXAM AT DISCHARGE General Appearance: positive: No acute distress, Alert, Other (Chronically ill- appearing, morbid obesity) Eyes Bilateral: positive: Normal inspection, PERRL, EOMI ENT: positive: ENT inspection nml, Pharynx nml, No signs of dehydration Neck: positive: Nml inspection, Thyroid nml, No JVD, Trachea midline. negative: Thyromegaly Respiratory: positive: Chest non-tender, No respiratory distress, Breath sounds nml Cardiovascular: positive: Regular rate & rhythm, No murmur, No gallop Peripheral Pulses: positive: 2+ Abdomen: positive: Non-tender, No organomegaly, Nml bowel sounds, No distention. negative: Tenderness Skin: positive: Color nml, No rash, Warm Extremities: positive: Non-tender, Full ROM, Nml appearance Neurologic/Psychiatric: positive: Oriented x3, CN's nml (2-12) - LABS Result Diagrams: 02/27/19 04:45 02/27/19 04:45 - QUALITY (Female Hip Fx Only) Was patient sent home on osteoporosis medication?: No - FOLLOW UP Follow Up: To follow-up with Jose Luis Metcalf primary PCP in 2 to 3 weeks - TIME SPENT Time Spent in Discharge (Minutes): 30"
[2019-02-27 13:10] VITALS: BP 110/53
== END 2019-02-27 14:45 | DRG 698 ==
LOC: EDUNIT# → ED 18:17 → MS2 20:48 → ICU 02-26 19:10
PROVIDERS: ADMIT Internal Medicine; ATTEND Family Medicine
DX: T83.511A Infection and inflammatory reaction due to indwelling urethral catheter, initial encounter (principal); I50.33 Acute on chronic diastolic (congestive) heart failure; I11.0 Hypertensive heart disease with heart failure; I50.9 Heart failure, unspecified; J96.22 Acute and chronic respiratory failure with hypercapnia; E11.9 Type 2 diabetes mellitus without complications; J96.21 Acute and chronic respiratory failure with hypoxia; E66.9 Obesity, unspecified; Z96.0 Presence of urogenital implants; B37.41 Candidal cystitis and urethritis; N17.9 Acute kidney failure, unspecified; I13.0 Hypertensive heart and chronic kidney disease with heart failure and stage 1 through stage 4 chronic kidney disease, or unspecified chronic kidney disease; N30.00 Acute cystitis without hematuria; E87.4 Mixed disorder of acid-base balance; E87.5 Hyperkalemia; Y84.6 Urinary catheterization as the cause of abnormal reaction of the patient, or of later complication, without mention of misadventure at the time of the procedure; T37.8X5A Adverse effect of other specified systemic anti-infectives and antiparasitics, initial encounter; T50.2X5A Adverse effect of carbonic-anhydrase inhibitors, benzothiadiazides and other diuretics, initial encounter; Y92.230 Patient room in hospital as the place of occurrence of the external cause; E11.22 Type 2 diabetes mellitus with diabetic chronic kidney disease; N18.3 Chronic kidney disease, stage 3 (moderate); E03.9 Hypothyroidism, unspecified; K21.9 Gastro-esophageal reflux disease without esophagitis; L89.301 Pressure ulcer of unspecified buttock, stage 1; E66.01 Morbid (severe) obesity due to excess calories; I95.9 Hypotension, unspecified; D63.8 Anemia in other chronic diseases classified elsewhere; J43.9 Emphysema, unspecified; R32 Unspecified urinary incontinence; B96.1 Klebsiella pneumoniae [K. pneumoniae] as the cause of diseases classified elsewhere; I27.20 Pulmonary hypertension, unspecified; R62.7 Adult failure to thrive; Z51.5 Encounter for palliative care; Z66 Do not resuscitate; Z16.12 Extended spectrum beta lactamase (ESBL) resistance; Z79.01 Long term (current) use of anticoagulants; Z99.81 Dependence on supplemental oxygen; Z86.19 Personal history of other infectious and parasitic diseases; Z79.899 Other long term (current) drug therapy; Z79.82 Long term (current) use of aspirin; Z79.4 Long term (current) use of insulin; Z68.39 Body mass index [BMI] 39.0-39.9, adult; Z87.891 Personal history of nicotine dependence; Z87.01 Personal history of pneumonia (recurrent)
CPT/HCPCS: 36415; 36600; 80048; 80053; 81001; 82803; 83036; 83690; 83880; 85025; 87086; 87150; 93005; 94660; 96374; 97162; 97166; 97530; 99284; A6250; A9270; J1815; J7040; 81003

== ENCOUNTER 2019-02-27 14:51 | Outpatient (CLI) | payer MEDICARE, OTHER | END 2019-02-27 14:52 | LOC: EMS 14:51 | PROVIDERS: ATTEND Family Medicine | DX: R53.1 Weakness (principal); Z74.01 Bed confinement status; Z99.81 Dependence on supplemental oxygen | CPT/HCPCS: A0425; A0428 ==

== ENCOUNTER 2019-05-28 08:00 | Outpatient (CLI) | payer MEDICARE, OTHER ==
[2019-05-28 19:40] LABS: BILIRUBIN,URINE NEGATIVE (NEGATIVE); GLUCOSE, URINE (UA) NEGATIVE (NEGATIVE); KETONES,URINE (UA) NEGATIVE (NEGATIVE); LEUKOCYTE ESTERASE, URINE SMALL (NEGATIVE); NITRITE,URINE NEGATIVE (NEGATIVE); OCCULT BLOOD,URINE LARGE (NEGATIVE); PROTEIN,URINE TRACE mg/dL (NEGATIVE); UROBILINOGEN,URINE 0.2 (NORMAL) E.U./dL (NORMAL)
[2019-05-28 19:42] LABS: CLARITY,URINE CLEAR (CLEAR)
[2019-05-28 19:52] LABS: AMORPHOUS SEDIMENT,UR Moderate /LPF; BACTERIA,URINE Rare /HPF (None Seen); EPITHELIAL CELLS,UR FEW Transitional /HPF (<= Few); SQUAMOUS EPITHELIAL CELL,UR NONE SEEN (<= Few); WBC CLUMPS,URINE PRESENT
== END 2019-05-28 23:59 | disposition home or self-care (01) ==
LOC: LAB.WCP 08:00
PROVIDERS: ATTEND Internal Medicine
DX: N39.0 Urinary tract infection, site not specified (principal)
CPT/HCPCS: 81001; 81003; 87086

== ENCOUNTER 2019-05-30 14:39 | Inpatient (IN) | payer MEDICARE, OTHER ==
--- NOTE | 2019-05-30 15:16 | ED Physician Documentation ---
History of Present Illness - Stated complaint Stated Complaint: FEMALE BLEEDING/BLOOD THINNERS - Chief complaint Chief Complaint: Abd Pain - History obtained from History obtained from: Patient, Family (daughter) - History of Present Illness Timing: Other (1 week rectal bleeding, Since last night with some clots. It is painless. She also had a single clot in her indwelling Blanco catheter which is chronic for urinary retention. She is on a relative for atrial fibrillation. She feels a little weak today but not terrible. No increase in shortness of breath. She wears oxygen at home. Also BiPAP at night.) Review of Systems Ten Systems: 10 systems reviewed and negative Constitutional: denies: Fever, Chills GI: denies: Abdominal Pain, Nausea, Vomiting, Constipation : denies: Vaginal bleeding PD PAST MEDICAL HISTORY - Past Medical History Cardiovascular: Congestive heart failure, Hypertension Respiratory: COPD, Emphysema, Shortness of breath Neuro: Migraines Endocrine/Autoimmune: Type 2 diabetes, HyPOthyroidism GI: GERD, Chronic constipation, Hemorrhoids PLODDER OPERATOR: None : Incontinence, Indwelling catheter HEENT: Chronic sinusitis, Chronic hearing loss Psych: Depression, Anxiety Musculoskeletal: Osteoarthritis, Chronic back pain Derm: Other - Past Surgical History Past Surgical History: Yes General: Cholecystectomy /PLODDER OPERATOR: Hysterectomy - Present Medications Home Medications: Ambulatory Orders Medication Instructions Recorded Confirmed Atorvastatin Calcium 40 mg PO QPM 11/13/17 02/25/19 HYDROcod/ACETAM 5/325 [[place] 5/325] 1 tab PO TID PRN 11/13/17 02/25/19 Isosorbide Mononitrate ER [Imdur] 30 mg PO DAILY #60 tablet 11/15/17 02/25/19 Metoprolol Succinate [Toprol Xl] 50 mg PO DAILY #60 tablet 11/15/17 02/25/19 Bisacodyl [Dulcolax] 5 mg PO BID PRN 11/05/18 02/25/19 Rivaroxaban [Xarelto] 15 mg PO QDDINNER 11/05/18 02/25/19 Diphenoxylate HCl/Atropine 1 tab PO QID PRN 02/17/19 02/25/19 [Diphenoxylate-Atrop 2.5-0.025] Nystatin 1 applic TOP BID 02/17/19 02/25/19 Saccharomyces Boulardii [Florastor] 250 mg PO BIDWM 02/17/19 02/25/19 Aspirin [Aspirin EC] 81 mg PO DAILY #30 tablet. 02/21/19 02/25/19 Ferrous Sulfate 325 mg PO DAILY #30 tablet 02/21/19 02/25/19 Furosemide 20 mg PO MOWEFR #15 tablet 02/21/19 02/25/19 Midodrine 2.5 mg PO TID #90 tablet 02/21/19 02/25/19 Insulin Aspart [NovoLOG] 1 - 9 unit SUBQ 02/27/19 0800,1200,1700,2100 pen Insulin Glargine [Lantus Solostar] 5 unit SUBQ QPM pen 02/27/19 Lactobacillus Rhamnosus GG 1 cap PO DAILY capsule 02/27/19 [Culturelle] Levothyroxine [Synthroid] 150 mcg PO QDAC tablet 02/27/19 Megestrol Acetate [Megace Es] 625 mg PO BID #150 ml 02/27/19 Methenamine Hippurate [Hiprex] 1 gm PO BID tablet 02/27/19 Multivitamin W/Minerals [Theragran 1 tab PO DAILYWM tablet 02/27/19 M] Pantoprazole [Protonix] 40 mg PO QDAC tablet 02/27/19 Polyethylene Glycol 3350 [Miralax] 17 gm PO DAILY packet 02/27/19 - Allergies Allergies/Adverse Reactions: Allergies Allergy/AdvReac Type Severity Reaction Status Date / Time No Known Drug Allergies Allergy Verified 05/30/19 14:49 - Social History Does the pt smoke?: No Smoking Status: Never smoker Does the pt drink ETOH?: No Does the pt have substance abuse?: No - Immunizations Immunizations are current?: Yes - POLST Patient has POLST: Yes POLST Status: DNR PD ED PE NORMAL - Vitals Vital signs reviewed: Yes - General General: Alert and oriented X 3, No acute distress - HEENT HEENT: PERRL, EOMI - Neck Neck: Supple, no meningeal sign, No bony TTP - Cardiac Cardiac: RRR, No murmur - Respiratory Respiratory: No respiratory distress, Clear bilaterally - Abdomen Abdomen: Non tender - Female Female : Other (Clear urine in the Blanco bag, rectal examination shows several small hemorrhoids, none of which have sequela of recent bleeding. There is also a small abraded rectal prolapse which could be the cause but there is no active bleeding. There is a fair amount of blood on her diaper. No gross vaginal bleeding.) - Rectal Rectal: Other (Early but large stage I pressure ulcer sacrum and buttocks) - Back Back: No CVA TTP, No spinal TTP - Derm Derm: Normal color, Warm and dry - Neuro Neuro: Alert and oriented X 3, Normal speech Results - Vitals Vitals: Vital Signs - 24 hr 05/30/19 05/30/19 05/30/19 14:41 15:12 16:00 Temperature 36.3 C L Heart Rate 70 70 62 Respiratory 18 16 18 Rate Blood Pressure 100/52 L 111/40 L 97/42 L O2 Saturation 90 L 98 94 Oxygen O2 Source [] Nasal cannula O2 Source Nasal cannula - EKG (time done) 1525 Rate: Rate (enter#) (66) Rhythm: NSR [place]: Normal QRS: Low voltage Ischemia: Normal ST segments Computer interpretation: Agree with computer - Labs Labs: Laboratory Tests 05/30/19 05/30/19 05/30/19 15:20 15:20 15:20 WBC 8.2 RBC 2.77 L Hgb 8.1 L Hct 28.0 L MCV 101.1 H MCH 29.2 MCHC 28.9 L RDW 16.4 H Plt Count 226 MPV 10.2 Neut # (Auto) 5.6 Lymph # (Auto) 1.4 L [place] # (Auto) 0.8 Eos # (Auto) 0.2 Baso # (Auto) 0.1 Absolute Nucleated RBC 0.00 Nucleated RBC % 0.0 Manual Slide Review Indicated Platelet Estimate NORMAL (130-450,000) Platelet Morphology NORMAL APPEARANCE RBC Morph Micro Appear 2+ POIKILOCYTOSIS Sodium 138 Potassium 6.6 H* Chloride 105 Carbon Dioxide 24 Anion Gap 9.0 BUN 99 H* Creatinine 3.5 H Estimated GFR (MDRD) 13 L Glucose 262 H Calcium 8.7 Total Bilirubin 0.3 AST < 10 L ALT < 10 L Alkaline Phosphatase 70 Total Protein 7.1 Albumin 3.6 Globulin 3.5 Albumin/Globulin Ratio 1.0 Lipase 22 Blood Type O POSITIVE Antibody Screen NEGATIVE PD MEDICAL DECISION MAKING - ED course ED course: 74-year-old woman anticoagulated for atrial fibrillation, and other health problems presents with lower GI bleeding which on examination is apparently from a small rectal prolapse but I cannot confirm that is not from higher up. Her last colonoscopy was 15 years ago and normal per her. Her hemoglobin is 8.1 which is actually at her baseline but her renal function is off of her baseline. It looks like her usual creatinine is in the mid ones. She is very prerenal and hyperkalemic. She is administered IV fluids, insulin, and glucose. Spoke with Dr. Cobos who will follow along for surgical consult and Dr. Tolliver for admission at 4:20 PM. Departure - Departure Disposition: 66 [facility] DC/Archie
[2019-05-30 15:26] LABS: BASOPHILS # (AUTO) 0.1 10^3/uL (0.0-0.1); BASOPHILS % (AUTO) 0.6 %; EOSINOPHILS # (AUTO) 0.2 10^3/uL (0.0-0.7); EOSINOPHILS % (AUTO) 2.6 %; HGB - HEMOGLOBIN 8.1 g/dL (12.0-16.0); LYMPHOCYTES # (AUTO) 1.4 10^3/uL (1.5-3.5); LYMPHOCYTES % (AUTO) 16.5 %; MEAN CORPUSCULAR HEMOGLOBIN 29.2 pg (27.0-31.0); MEAN CORPUSCULAR HGB CONC 28.9 g/dL (32.0-36.0); MEAN CORPUSCULAR VOLUME 101.1 fL (81.0-99.0); MEAN PLATELET VOLUME 10.2 fL (7.9-10.8); MONOCYTES # (AUTO) 0.8 10^3/uL (0.0-1.0); MONOCYTES % (AUTO) 9.8 %; NEUTROPHILS # (AUTO) 5.6 10^3/uL (1.5-6.6); NEUTROPHILS % (AUTO) 68.8 %; PLT - PLATELET COUNT 226 10^3/uL (130-450); RED BLOOD COUNT 2.77 10^6/uL (4.20-5.40); RED CELL DISTRIBUTION WIDTH 16.4 % (12.0-15.0); WHITE BLOOD COUNT 8.2 x10^3/uL (4.8-10.8)
[2019-05-30 16:03] LABS: PLATELET ESTIMATE, MANUAL NORMAL (130-450,000) (NORMAL); PLATELET MORPHOLOGY NORMAL APPEARANCE (NORMAL)
[2019-05-30 16:04] LABS: ALBUMIN 3.6 g/dL (3.2-5.5); ALKALINE PHOSPHATASE 70 IU/L (42-121); ALT ALANINE AMINOTRANSFERASE < 10 IU/L (10-60); AST ASPARTATE AMINOTRANSFERASE < 10 IU/L (10-42); BILIRUBIN,TOTAL 0.3 mg/dL (0.2-1.0); BUN - BLOOD UREA NITROGEN 99 mg/dL (6-20); CALCIUM 8.7 mg/dL (8.5-10.3); CARBON DIOXIDE - CO2 24 mmol/L (21-32); CHLORIDE 105 mmol/L (101-111); CREATININE 3.5 mg/dL (0.4-1.0); GFR - MDRD 13 (>89); GLUCOSE 262 mg/dL (70-100); LIPASE 22 U/L (22-51); SODIUM 138 mmol/L (135-145); TOTAL PROTEIN 7.1 g/dL (6.7-8.2)
[2019-05-30] MEDS ORDERED: DEXTROSE 50% ABBOJECT 25 GM/50 ML SYRINGE IVP STA (16:08)
[2019-05-30] MEDS ORDERED: SODIUM CHLORIDE 0.9% 1,000 ML IV ONE ×3 (16:08→22:03)
[2019-05-30] MEDS ORDERED: INSULIN REGULAR HUMAN 100 UNIT/1 ML 10 ML MDV IVP STA ×2 (16:08→21:59)
[2019-05-30] MEDS ORDERED: DEXTROSE 10% 250 ML IV STA ×2 (16:29→21:58)
[2019-05-30] MEDS ORDERED: PROCHLORPERAZINE 10 MG/2 ML VIAL IVP PRN (16:36)
[2019-05-30] MEDS ORDERED: SODIUM CHLORIDE 0.9% 1,000 ML IV SCH (17:00)
[2019-05-30] MEDS ORDERED: MIDODRINE 2.5 MG PO SCH (17:00)
--- NOTE | 2019-05-30 17:44 | XRAY Report ---
Reason: Pre-op eval Procedure Date: 05/30/2019 Accession Number: [id number] / [id number] Procedure: XR - Chest 1 View X-Ray CPT Code: 67150 FULL RESULT: EXAM: CHEST RADIOGRAPHY EXAM DATE: 05/30/2019 05:08 PM. CLINICAL HISTORY: Pre-op eval. COMPARISON: CHEST 1 VIEW 02/20/2019 8:44 AM. TECHNIQUE: 1 view. FINDINGS: Lungs/Pleura: Mild increased density at the bilateral bases. No pneumothorax. Pulmonary vascular congestion without overt edema. Mediastinum: Large cardiac silhouette as before. Other: None. IMPRESSION: Mild increased density at the bilateral bases, suspect atelectasis. Infection not excluded. RADIA
[2019-05-30] MEDS: SODIUM CHLORIDE FLUSH 0.9% 10 ML SYRINGE IVP SCH (17:47)
[2019-05-30] MEDS: INSULIN ASPART 300 UNIT/3 ML PEN SUBQ SCH ×2 (18:15→21:41)
--- NOTE | 2019-05-30 18:22 | CONSULTATION NOTE ---
Referring Provider Name of Referring Provider:: Angeline Tolliver Consult Date: 05/30/19 Chief Complaint - Chief Complaint Chief Complaint: Rectal bleeding History of Present Illness - Admitted From Admitted From:: Emergency department - History Obtained From Records Reviewed: Providers notes History obtained from: providers and patient Exam Limitations: none - History of Present Illness HPI Comment/Other: Aurora is an unfortunate lady who presented to the ED today with her daughter reporting bright red blood per rectum. She says the bleeding started last evening. She also noted some blood in her urinary catheter. She has a chronic indwelling Blanco and is on Xarelto. She says it is not terribly uncommon for her to see blood in her catheter. She reports seeing several clots and this concerned her greatly. In the ED she was noted to have a stable anemia with hyperkalemia. She has been admitted by the hospitalist service. Her last colonoscopy was 15 years ago. I have been asked to see her for evaluation for lower GI hemorrhage. She denies any unusual pain or fever at home. She tells me she is told old for surgery but she might consider endoscopy. Dr. Klein performed a rectal exam in the ED and found the patient to have rectal prolapse with excoriation and stigmata of recent bleeding. History - Past Medical History Cardiovascular: reports: Congestive heart failure, Hypertension Respiratory: reports: COPD, Emphysema, Shortness of breath, CPAP use Neuro: reports: Migraines Endocrine/Autoimmune: reports: Type 2 diabetes, HyPOthyroidism GI: reports: GERD, Chronic constipation, Hemorrhoids SENIOR COBOL DEVELOPER: reports: None : reports: Incontinence, Indwelling catheter HEENT: reports: Chronic sinusitis, Chronic hearing loss Psych: reports: Depression, Anxiety Musculoskeletal: reports: Osteoarthritis, Chronic back pain Derm: reports: Other MRSA Hx?: No - Past Surgical History General: reports: Cholecystectomy /SENIOR COBOL DEVELOPER: reports: Hysterectomy - Family & Social History Family History: Mother: , Cancer, Father: , CAD, Diabetes, Type 2, Hypertension, Sister: , Cancer Family History Comment/Other: Mother from an unknown type of cancer, father of CAD, HTN and he was diabetic, sister after complications of a CABG, another sister of cancer, a brother of CAD and patient has one sister who is alive and well. 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 She was for 32 years, but her about 2014 years ago. She had 3 children, 3 girls and one boy. The boy at age 14 years. She raised her family in the state [facility]. Patient was a life-long smoker, but quit about 6 years ago after a really bad case of pneumonia. Patient denies alcohol, or other illicit drug use. She wishes to be a DNR. A long discussion about quality of life and possible upcoming procedures in the event she would need a cardiac cath. Patient was clear about not wanting anything invasive that would prolong her life. - Substance History Use: Uses substance without health or social issues: Tobacco (quit 6 years ago; no etoh use) - POLST Patient has POLST: Yes POLST Status: DNR Meds/Allgy - Home Medications Home Medications: Ambulatory Orders Medication Instructions Recorded Confirmed Atorvastatin Calcium 40 mg PO QPM 11/13/17 05/30/19 HYDROcod/ACETAM 5/325 [[place] 5/325] 1 tab PO TID PRN 11/13/17 05/30/19 Metoprolol Succinate [Toprol Xl] 50 mg PO DAILY #60 tablet 11/15/17 05/30/19 Bisacodyl [Dulcolax] 5 mg PO BID PRN 11/05/18 05/30/19 Rivaroxaban [Xarelto] 15 mg PO QDDINNER 11/05/18 05/30/19 Diphenoxylate HCl/Atropine 1 tab PO QID PRN 02/17/19 05/30/19 [Diphenoxylate-Atrop 2.5-0.025] Nystatin 1 applic TOP BID 02/17/19 05/30/19 Saccharomyces Boulardii [Florastor] 250 mg PO DAILYWM 02/17/19 05/30/19 Ferrous Sulfate 325 mg PO DAILYWM 05/30/19 05/30/19 Furosemide 40 mg PO BIDDIURETIC 05/30/19 05/30/19 Insulin 70/30 Human [NovoLIN] 20 unit SUBQ BID 05/30/19 05/30/19 Ipratropium/Albuterol Sulfate 3 ml INH BID 05/30/19 05/30/19 [Iprat-Albut 0.5-3(2.5) mg/3 ml] Levothyroxine Sodium [Synthroid] 150 mcg PO QDAC 05/30/19 05/30/19 Magnesium Hydroxide [Milk of 2,400 mg PO QPM PRN 05/30/19 05/30/19 Magnesia] Omeprazole 20 mg PO QDAC 05/30/19 05/30/19 Spironolactone [Aldactone] 25 mg PO DAILY 05/30/19 05/30/19 amLODIPine [Norvasc] 5 mg PO BID 05/30/19 05/30/19 - Allergies Allergies/Adverse Reactions: Allergies Allergy/AdvReac Type Severity Reaction Status Date / Time No Known Drug Allergies Allergy Verified 05/30/19 14:49 Review of Systems - Constitutional Constitutional: reports: Fatigue, Weakness. denies: Poor appetite - Eyes Eyes: denies: Pain, Irritation, Amaurosis - Ears, Nose & Throat Ears, Nose & Throat: denies: Tinnitus, Vertigo - Cardiovascular Cariovascular: reports: Irregular heart rate. denies: Palpitations, Chest pain, Lightheadedness - Respiratory Respiratory: denies: Cough, Wheezing - Gastrointestinal Gastrointestinal: reports: Bloody stools. denies: Abdominal pain, Abdominal distention, Change in bowel habits Exam - Vital Signs Reviewed Vital Signs: Yes Vital Signs: Vital Signs x48h Temp Pulse Pulse Resp BP BP Pulse Ox 05/30/19 18:00 64 16 100/47 L 99 05/30/19 17:00 36.8 C 68 67 16 110/54 L 105/50 L 99 05/30/19 16:36 65 16 105/48 L 98 05/30/19 16:00 62 18 97/42 L 94 05/30/19 15:12 70 16 111/40 L 98 05/30/19 14:41 36.3 C L 70 18 100/52 L 90 L - Physical Exam General Appearance: positive: No acute distress, Alert Eyes Bilateral: positive: Normal inspection, Other (Pale sclera) ENT: positive: ENT inspection nml Neck: positive: Nml inspection Respiratory: positive: Chest non-tender Cardiovascular: positive: Irregularly irregular Abdomen: positive: Non-tender, Nml bowel sounds, No distention, Guarding, Rebound Rectal: positive: Other (rotund) Skin: positive: Pallor Neurologic/Psychiatric: positive: Oriented x3, CN's nml (2-12) Conclusion/Plan - Diagnosis Diagnosis: Lower GI hemorrhage in the setting of a lady with multiple medical problems and acute Hyperkalemia on Xarelto. - Plan Plan: I have spoken with Dr. Tolliver and she feels this nice lady is an appropriate candidate for colonoscopy once they hyperkalemia is corrected. We will plan for a prep followed by colonoscopy during this admission when this acute issue is resolved. - Lab Results Fish Bones: 05/30/19 15:20 05/30/19 15:20 - Diagnostic Imaging Results Diagnostic Imaging Results: positive: Final report reviewed, Read gissell mporaneously Diagnostic Imaging Results Comments: Final Report PT NAME: AURORA TAN MR#: [id number] ADM IN/ICU AGE: 74 CI DT/TM: 05/30/19 PCP: Jose Luis Metcalf MD : 1945 ATT: nAgeline whatley MD SEX: F ORD: Angeline silveira MD EXAM: [id number] ([id number]) Reason: Pre-op eval Procedure Date: 05/30/2019 Accession Number: [id number] / [id number] Procedure: XR - Chest 1 View X-Ray CPT Code: 56772 FULL RESULT: EXAM: CHEST RADIOGRAPHY EXAM DATE: 05/30/2019 05:08 PM. CLINICAL HISTORY: Pre-op eval. COMPARISON: CHEST 1 VIEW 02/20/2019 8:44 AM. TECHNIQUE: 1 view. FINDINGS: Lungs/Pleura: Mild increased density at the bilateral bases. No pneumothorax. Pulmonary vascular congestion without overt edema. Mediastinum: Large cardiac silhouette as before. Other: None. IMPRESSION: Mild increased density at the bilateral bases, suspect atelectasis. Infection not excluded. 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
[2019-05-30 21:19] LABS: HGB - HEMOGLOBIN 7.6 g/dL (12.0-16.0)
[2019-05-30 21:34] LABS: CALCIUM 8.2 mg/dL (8.5-10.3); CREATININE 3.3 mg/dL (0.4-1.0)
[2019-05-30] MEDS: PANTOPRAZOLE 40 MG VIAL IVP SCH (21:40)
[2019-05-30] MEDS: ACETAMINOPHEN 325 MG TABLET PO PRN (21:48)
[2019-05-30] MEDS ORDERED: ALBUTEROL NEB 2.5 MG/3 ML INH STA (22:00)
[2019-05-30] MEDS ORDERED: SODIUM POLYSTYRENE SULFONATE 15 GM/60 ML BOTTLE PO ONE (22:00)
[2019-05-30] MEDS ORDERED: CALCIUM GLUCONATE 1,000 MG in SODIUM CHLORIDE 0.9% 50 ML IV ONE (22:02)
[2019-05-30] MEDS ORDERED: ALBUTEROL NEB 2.5 MG/3 ML INH PRN (22:17)
--- NOTE | 2019-05-30 22:56 | HISTORY & PHYSICAL EXAMINATION ---
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 She has a history of COPD, stopped smoking cigarettes one year ago, is now on home oxygen at 3 liters per nasal cannula 23/04 and also has a history of needing a BiPAP machine at home. She has a history of hypothyroidism, TIAs and is on Xarelto, chronic pain and DJD, anxiety and depression, chronic indwelling Blanco due to incontinence, prior decubitus ulcers and chronic kidney disease with creatinine baseline about 1.5-2.0. The patient presented with acute onset of painless, bright red blood per rectum and came to the emergency room. She was found to have rectal prolapse and was not actively bleeding. Her lab workup today showed that she has acute on chronic kidney disease with a higher creatinine of 3.5, as well as new hyperkalemia with a potassium of 6.6. She was given insulin and D10 in the emergency room and is being admitted to the ICU for management of her hyperkalemia, CATY and GI blood loss anemia. PAST MEDICAL HISTORY: Please look at paragraph #1. ALLERGIES: NONE. MEDICATIONS 1. Iron 325 mg daily. 2. Lasix 40 mg b.i.d. 3. Dulcolax p.r.n. 4. Aldactone 25 mg daily. 5. Omeprazole 20 mg daily. 6. Nystatin topical b.i.d. 7. Toprol-XL 50 mg daily. 8. Synthroid 150 mcg daily. 9. DuoNeb inhaler b.i.d. 10. [place] 5/325 mg t.i.d. p.r.n. pain. 11. Lipitor 40 mg every night. 12. Amlodipine 5 mg b.i.d. 13. Florastor when she is on antibiotics. 14. Xarelto 15 mg every day at dinner. 15. Milk of magnesia p.r.n. 16. Insulin 70/30, 20 units b.i.d. FAMILY HISTORY: No inherited diseases. SOCIAL HISTORY: She lives alone, she has had caregivers, as well as home health visits in the past. She quit smoking one year ago, there is no alcohol abuse or drug abuse history. REVIEW OF SYSTEMS: She denies any current dyspnea, abdominal pain, hematemesis, or chest discomfort. A comprehensive review of systems was performed and the pertinent positives are listed, the rest are negative. PHYSICAL EXAMINATION GENERAL: Obese white female. She is supine in bed and in no distress. She does appear pale. VITAL SIGNS: Blood pressure 95-100 systolic/45-55, heart rate 60-70 in sinus rhythm. HEENT: Reveals moist oral mucosa, but she has pallor. NECK: Without JVD in a supine position. CHEST: Clear at the anterior bases. HEART: Sounds very distant. No audible murmur. ABDOMEN: Obese with a pannus. Normal bowel sounds. Nontender. I cannot rule out organomegaly because of the obesity. EXTREMITIES: No clubbing, cyanosis or edema. NEUROLOGIC: Grossly intact. LABORATORY DATA: Sodium 138, potassium 6.6, BUN 99, creatinine 3.5, glucose 268. Liver tests normal. Lipase normal. White blood count 8.2, hemoglobin 8.1 with MCV of 101, platelet count 226. No INR was done, but would be inaccurate on Xarelto. CHEST X-RAY: No active pulmonary disease. EKG: Normal sinus rhythm. No acute changes and within normal limits. IMPRESSION/DIAGNOSES 1. Hyperkalemia. 2. Oodfi-ro-ekrmril kidney disease. 3. Rectal bleeding. 4. Gastrointestinal blood loss anemia. 5. Chronic indwelling Blanco, due to incontinence. 6. Decubitus ulcer in the past and nurse's report it is present with stage I now. 7. Diabetes, type 2. 8. Morbid obesity with body mass index 40.9. 9. History of Extended spectrum beta-lactamase Klebsiella pneumoniae urinary tract infection. 10. Old myocardial infarction. 11. History of chronic obstructive pulmonary disease, no current exacerbation. 12. History hypothyroidism, on replacement. 13. History of transient ischemic attack, previously on Xarelto. 14. History of chronic pain. 15. History of anxiety and depression. PLAN: Admit the patient to the ICU on telemetry. Stop her aspirin and Xarelto. Follow her CBC q.8 hours. Two units of blood has been typed and crossed and will transfuse for hemoglobin under 7, unless she has symptoms (such as dyspnea), then transfuse when under 8. Follow her potassium closely, treat it to correct. Begin gentle IV fluids, tp treat her [id number] kidney disease. This patient last had an Echo done approximately three months ago showing a normalized LVEF, because last year she had an EF of 45%. Follow her I's and O's carefully. Urinalysis was done that does show presence of bacteria; however, this could be bacterial colonization since she has no elevated white count or fever. Continue with her cchronic indwelling Blanco care. Continue with her oxygen and BiPAP should be used here. Begin fingerstick glucose checks and sliding scale insulin, as well as Lantus insulin doses. Her diet will be a full liquid diet and changed to clear liquids in preparation for probable colonoscopy. Obtain surgical consult, I discussed this case with the general surgeon who may place a lidocaine Gelfoam pack into the rectum or is considering proceeding to a colonoscopy, since the patient's last colonoscopy was 15 years ago. Continue with her other medications for her thyroid disease, inhalers, pain and depression. DEEP VENOUS THROMBOSIS PROPHYLAXIS: SCDs. CODE STATUS: DNR. ATTESTATION: The patient is expected to be discharged or transferred to another facility within 96 hours: Yes. TD: 05/30/2019 19:33 MTDD
[2019-05-31] MEDS: SODIUM CHLORIDE FLUSH 0.9% 10 ML SYRINGE IVP SCH ×3 (00:09→17:13)
[2019-05-31] MEDS: ACETAMINOPHEN 325 MG TABLET PO PRN (02:54)
[2019-05-31 05:18] LABS: BASOPHILS % (AUTO) 0.4 %; EOSINOPHILS # (AUTO) 0.2 10^3/uL (0.0-0.7); EOSINOPHILS % (AUTO) 2.5 %; LYMPHOCYTES % (AUTO) 14.8 %; MEAN CORPUSCULAR HEMOGLOBIN 29.3 pg (27.0-31.0); MEAN CORPUSCULAR HGB CONC 28.9 g/dL (32.0-36.0); MEAN CORPUSCULAR VOLUME 101.3 fL (81.0-99.0); MEAN PLATELET VOLUME 10.7 fL (7.9-10.8); MONOCYTES # (AUTO) 0.7 10^3/uL (0.0-1.0); MONOCYTES % (AUTO) 10.1 %; NEUTROPHILS # (AUTO) 4.8 10^3/uL (1.5-6.6); NEUTROPHILS % (AUTO) 70.6 %; PLT - PLATELET COUNT 195 10^3/uL (130-450); RED BLOOD COUNT 2.32 10^6/uL (4.20-5.40); RED CELL DISTRIBUTION WIDTH 16.5 % (12.0-15.0); WHITE BLOOD COUNT 6.8 x10^3/uL (4.8-10.8)
[2019-05-31 05:29] LABS: HGB - HEMOGLOBIN 6.8 g/dL (12.0-16.0)
[2019-05-31 05:32] LABS: CREATININE 2.9 mg/dL (0.4-1.0)
[2019-05-31 05:34] LABS: MAGNESIUM 1.5 mg/dL (1.7-2.8); PHOSPHORUS 4.8 mg/dL (2.5-4.6)
[2019-05-31 05:39] LABS: VBG PH 7.162 (7.31-7.41)
[2019-05-31 05:50] LABS: PLATELET ESTIMATE, MANUAL NORMAL (130-450,000) (NORMAL); PLATELET MORPHOLOGY NORMAL APPEARANCE (NORMAL); RBC MORPHOLOGY (MULTIPLE) 2+ HYPOCHROMASIA (NORMAL)
[2019-05-31 05:54] LABS: HB2 TOTAL 6.8 g/dL; HEMOGLOBIN A1C 0.47 g/dL; HEMOGLOBIN A1C % 8.5 % (4.6-6.2)
[2019-05-31] MEDS ORDERED: MAGNESIUM OXIDE 400 MG TABLET PO SCH (06:00)
[2019-05-31] MEDS ORDERED: DEXTROSE 10% 250 ML IV STA ×2 (06:08→23:10)
[2019-05-31] MEDS ORDERED: INSULIN REGULAR HUMAN 100 UNIT/1 ML 10 ML MDV IVP STA (06:08)
[2019-05-31] MEDS ORDERED: MAGNESIUM SULFATE 2 GRAM 2 GM/50 ML BAG IV ONE (06:09)
[2019-05-31] MEDS ORDERED: SODIUM CHLORIDE 0.9% 1,000 ML IV ONE (06:09)
[2019-05-31] MEDS: PANTOPRAZOLE 40 MG VIAL IVP SCH ×2 (07:54→21:16)
[2019-05-31] MEDS: INSULIN ASPART 300 UNIT/3 ML PEN SUBQ SCH (08:22)
[2019-05-31] MEDS ORDERED: SODIUM CHLORIDE 0.9% 1,000 ML IV SCH (08:38)
--- NOTE | 2019-05-31 08:40 | PROVIDER PROGRESS NOTE ---
Assessment/Plan - Problem List (1) Hypotension Assessment/Plan: Continue hydration but decrease rate to avoid volume overload (since she had diastolic heart failure in past admissions) Continue to watch I's and O's (has chronic Blanco). Still hold her home HTN meds, except a lower dose of her Toprol will be ordered, if BP can tolerate it. Follow H/H and transfuse when < 7 approx, or of symptomatic with dyspnea. Remain in ICU, on telemetry (2) Anemia due to gastrointestinal blood loss Assessment/Plan: Hgb dropped from adm 8 to 6.8 with hemodilution. No further BRBPR, which brought her in. No complaints of rectal pain (had rectal prolapse seen by ER MD yesterday) Follow H/H q6h. 2U PRBCs are typed and crossed. Transfuse if <7 and dropping rapidly or if symptomatic or if rebleeding occurs. (3) Rectal bleeding Assessment/Plan: This was a first episode of painless rectal bleeding. The general Surgeon has decided not to manage with Gelfoam but to proceed to a colonoscopy. Plan pain meds if needed and transfuse, as above. (4) Hyperkalemia Assessment/Plan: Since there has been no significant improvement, will start D5 iv and Insulin drip with titration (as per a DKA protocol), watching serum K every 1 hour. Continue telemetry. Diet would be renal diet, and she will be on clear liquids, plus a bowel prep for colonoscopy. (5) Acute on chronic kidney failure Assessment/Plan: Improvement in creat from 3.5 to 2.9 (her baseline creat is 1.5 - 2.0). Continue iv hydration with saline, but decrease rate. Avoid nephrotoxins (Her ERIC is on hold). Continue Blanco for bladder decompression (her reason for Blanco was incontinence however). (6) Chronic diastolic heart failure Assessment/Plan: She was getting iv saline hydration for treating the CATY and is approx 2L (+) IV fluid rate will be to prevent volume overload in chronic diastolic heart failure. Will restart her home B-israel but not 50 mg daily, only at 12.5 mg daily, with hold for low BP orders. (7) Decubitus ulcer, buttock Assessment/Plan: Topical care planned. The area will be evaluated at time of colonoscopy, for other advice on management. (8) Type 2 diabetes mellitus with hyperglycemia, with long-term current use of insulin Assessment/Plan: D5 in IV, clear liquids orally, Insulin drip for Hyperkalemia, and getting POC fingerstick glu ACHS and whenever needed. (9) Chronic indwelling Blanco catheter Assessment/Plan: The U/A was abnormal, is likely colonized, due to chronic Blanco. Will not start antibx due to no fever or elevated WBC. No more clots seen, as she had at home before admission. Continue Blanco care. (10) History of COPD Assessment/Plan: No current exacerbation. Continue supplemental O2 and scheduled inhalers/nebs. (11) History of hypothyroidism Assessment/Plan: Continue her home thyroid dose. (12) Chronic pain Assessment/Plan: Continue pain meds, but hold for low BP, has been ordered. She currently has good pain control. (13) History of anxiety Assessment/Plan: Continue home meds. - Current Meds Current Meds: Current Medications Generic Name Dose Route Start Last Admin Trade Name Freq PRN Reason Stop Dose Admin Acetaminophen 650 mg 05/30/19 16:36 05/31/19 02:54 Tylenol PO 650 mg Q4HR PRN Administration Pain 1 to 4 Sodium Chloride 1,000 mls @ 100 mls/hr 05/30/19 17:00 05/31/19 06:57 Normal Saline 0.9% IV Infused .Q10H PERNELL Infusion Insulin Aspart 1 - 5 unit 05/30/19 17:00 05/31/19 08:22 Novolog SUBQ 2 unit 0800,1200,1700,2100 PERNELL Administration Protocol Pantoprazole Sodium 40 mg 05/30/19 21:00 05/31/19 07:54 Protonix IVP 40 mg BID PERNELL Administration Sodium Chloride 10 ml 05/30/19 17:00 05/31/19 07:54 Normal Saline Flush 0.9% IVP 10 ml 0100,0900,1700 PERNELL Administration - Lab Result Fish Bone Diagrams: 05/31/19 15:38 05/31/19 18:30 - Additional Planning My Orders: My Active Orders 05/30/19 16:36 Activity Orders [RC] Q2HR Daily Weight [RC] 0600 IO [RC] Q4HR IV Insert [RC] ONCE Initiate ICU Electrolyte Prot. [RC] .protocol Initiate Line Care Protocol [RC] .protocol Initiate Personal Care Protoco [RC] .protocol Vital Signs [RC] Q1HR Acetaminophen [Tylenol] 650 mg PO Q4HR PRN Prochlorperazine Inj [Compazine Inj] 10 mg IVP Q6HR PRN Sodium Chloride Flush 0.9% [Normal Saline Flush 0.9%] 10 ml IVP PRN PRN Code Status [OTHERS] Routine Condition of Patient [OTHERS] Routine DVT Prophylaxis [OTHERS] Routine 05/30/19 16:40 Oral Care - Nursing [RC] Routine SCDs [RC] QSHIFT Turn and Reposition [RC] Routine 05/30/19 16:44 Initiate Line Care Protocol [RC] QSHIFT General Surgery Consult [CONS] Routine 05/30/19 16:50 Blood Glucose Checks - Eating [RC] 0800,1200,1700,2100 Initiate Hypoglycemia Protocol [RC] .protocol 05/30/19 17:00 Insulin Aspart [NovoLOG] 1 - 5 unit SUBQ 0800,1200,1700,2100 Sodium Chloride Flush 0.9% [Normal Saline Flush 0.9%] 10 ml IVP 0100,0900,1700 05/30/19 17:44 Home CPAP/BiPAP [RC] .ONCE Oxygen Therapy [RC] .PRN 05/30/19 21:00 Pantoprazole [Protonix] 40 mg IVP BID 05/30/19 22:23 Min Oil/Dimeth/Coconut Oil Crm [Cavilon] 1 applic TOP PRN PRN 05/30/19 Dinner Full Liquid Diet [DIET] 05/31/19 08:38 Sodium Chloride 0.9% [Normal Saline 0.9%] 1,000 ml IV 60 mls/hr 05/31/19 09:00 Metoprolol Succinate [Toprol Xl] 12.5 mg PO DAILY 05/31/19 11:00 HEMOGLOBIN AND HEMATOCRIT [HEME] Timed 06/01/19 05:00 BMP - BASIC METABOLIC PANEL [CHEM] DAILYLAB CBC - COMP BLD CT W/AUTO DIFF [HEME] DAILYLAB 06/02/19 05:00 BMP - BASIC METABOLIC PANEL [CHEM] DAILYLAB CBC - COMP BLD CT W/AUTO DIFF [HEME] DAILYLAB 06/03/19 05:00 CBC - COMP BLD CT W/AUTO DIFF [HEME] DAILYLAB Subjective - Subjective Patient Reports: Resting Comfortably Objective Vital Signs: Vital Signs - 24 hr 05/30/19 05/30/19 05/30/19 14:41 15:12 16:00 Temperature 36.3 C L Heart Rate 70 70 62 Heart Rate [ Monitoring electrodes] Respiratory 18 16 18 Rate Blood Pressure 100/52 L 111/40 L 97/42 L Blood Pressure [Left Brachial artery] O2 Saturation 90 L 98 94 05/30/19 05/30/19 05/30/19 16:36 17:00 17:55 Temperature 36.8 C Heart Rate 65 68 61 Heart Rate [ 67 Monitoring electrodes] Respiratory 16 16 14 Rate Blood Pressure 105/48 L 110/54 L Blood Pressure 105/50 L [Left Brachial artery] O2 Saturation 98 99 05/30/19 05/30/19 05/30/19 18:00 18:01 18:05 Temperature Heart Rate 64 69 63 Heart Rate [ 64 Monitoring electrodes] Respiratory 14 18 14 Rate Blood Pressure 103/39 L Blood Pressure 100/47 L [Left Brachial artery] O2 Saturation 99 05/30/19 05/30/19 05/30/19 18:07 18:08 18:10 Temperature Heart Rate 62 62 68 Heart Rate [ Monitoring electrodes] Respiratory 14 13 18 Rate Blood Pressure 100/47 L Blood Pressure [Left Brachial artery] O2 Saturation 05/30/19 05/30/19 05/30/19 18:15 18:20 18:25 Temperature Heart Rate 70 72 69 Heart Rate [ Monitoring electrodes] Respiratory 25 H 18 18 Rate Blood Pressure Blood Pressure [Left Brachial artery] O2 Saturation 05/30/19 05/30/19 05/30/19 18:30 18:31 18:35 Temperature Heart Rate 65 67 71 Heart Rate [ Monitoring electrodes] Respiratory 14 21 21 Rate Blood Pressure 112/61 Blood Pressure [Left Brachial artery] O2 Saturation 05/30/19 05/30/19 05/30/19 18:40 18:45 18:50 Temperature Heart Rate 66 67 66 Heart Rate [ Monitoring electrodes] Respiratory 17 14 14 Rate Blood Pressure Blood Pressure [Left Brachial artery] O2 Saturation 05/30/19 05/30/19 05/30/19 18:55 19:00 19:01 Temperature Heart Rate 66 63 65 Heart Rate [ 68 Monitoring electrodes] Respiratory 16 17 17 Rate Blood Pressure 94/54 L Blood Pressure 94/54 L [Left Brachial artery] O2 Saturation 97 08/05/30/19 05/30/19 19:05 19:10 19:15 Temperature Heart Rate 65 65 67 Heart Rate [ Monitoring electrodes] Respiratory 17 22 30 H Rate Blood Pressure Blood Pressure [Left Brachial artery] O2 Saturation 05/30/19 05/30/19 05/30/19 19:20 19:25 19:30 Temperature Heart Rate 64 77 64 Heart Rate [ Monitoring electrodes] Respiratory 15 14 19 Rate Blood Pressure Blood Pressure [Left Brachial artery] O2 Saturation 05/30/19 05/30/19 05/30/19 19:31 19:35 19:40 Temperature Heart Rate 63 64 65 Heart Rate [ Monitoring electrodes] Respiratory 13 14 17 Rate Blood Pressure 99/51 L Blood Pressure [Left Brachial artery] O2 Saturation 05/30/19 05/30/19 05/30/19 19:45 19:50 19:55 Temperature Heart Rate 68 65 72 Heart Rate [ Monitoring electrodes] Respiratory 16 15 17 Rate Blood Pressure Blood Pressure [Left Brachial artery] O2 Saturation 05/30/19 05/30/19 05/30/19 20:00 20:01 20:05 Temperature 36.6 C Heart Rate 71 68 66 Heart Rate [ 69 Monitoring electrodes] Respiratory 17 15 16 Rate Blood Pressure 111/55 L Blood Pressure 111/55 L [Left Brachial artery] O2 Saturation 99 05/30/19 05/30/19 05/30/19 20:10 20:15 20:20 Temperature Heart Rate 64 68 66 Heart Rate [ Monitoring electrodes] Respiratory 15 16 19 Rate Blood Pressure Blood Pressure [Left Brachial artery] O2 Saturation 05/30/19 05/30/19 05/30/19 20:25 20:30 20:35 Temperature Heart Rate 77 71 65 Heart Rate [ Monitoring electrodes] Respiratory 19 16 14 Rate Blood Pressure Blood Pressure [Left Brachial artery] O2 Saturation 05/30/19 05/30/19 05/30/19 20:40 20:45 20:50 Temperature Heart Rate 70 69 67 Heart Rate [ Monitoring electrodes] Respiratory 18 12 19 Rate Blood Pressure Blood Pressure [Left Brachial artery] O2 Saturation 05/30/19 05/30/19 05/30/19 20:55 21:00 21:01 Temperature Heart Rate 66 66 73 Heart Rate [ 68 Monitoring electrodes] Respiratory 15 17 20 Rate Blood Pressure 119/45 L Blood Pressure 119/45 L [Left Brachial artery] O2 Saturation 98 05/30/19 05/30/19 05/30/19 21:05 21:10 21:15 Temperature Heart Rate 68 74 68 Heart Rate [ Monitoring electrodes] Respiratory 13 17 16 Rate Blood Pressure Blood Pressure [Left Brachial artery] O2 Saturation 05/30/19 05/30/19 05/30/19 21:20 21:22 21:25 Temperature Heart Rate 67 66 66 Heart Rate [ Monitoring electrodes] Respiratory 14 16 15 Rate Blood Pressure Blood Pressure [Left Brachial artery] O2 Saturation 05/30/19 05/30/19 05/30/19 21:30 21:35 21:40 Temperature Heart Rate 69 65 67 Heart Rate [ Monitoring electrodes] Respiratory 14 16 20 Rate Blood Pressure Blood Pressure [Left Brachial artery] O2 Saturation 05/30/19 05/30/19 05/30/19 21:45 21:50 21:55 Temperature Heart Rate 69 69 75 Heart Rate [ Monitoring electrodes] Respiratory 13 14 18 Rate Blood Pressure Blood Pressure [Left Brachial artery] O2 Saturation 05/30/19 05/30/19 05/30/19 22:00 22:03 22:04 Temperature Heart Rate 66 65 66 Heart Rate [ 68 Monitoring electrodes] Respiratory 15 14 14 Rate Blood Pressure 114/45 L Blood Pressure 119/45 L [Left Brachial artery] O2 Saturation 98 05/30/19 05/30/19 05/30/19 22:05 22:10 22:15 Temperature Heart Rate 67 68 67 Heart Rate [ Monitoring electrodes] Respiratory 14 18 16 Rate Blood Pressure Blood Pressure [Left Brachial artery] O2 Saturation 05/30/19 05/30/19 05/30/19 22:20 22:25 22:30 Temperature 36.6 C Heart Rate 69 65 65 Heart Rate [ Monitoring electrodes] Respiratory 13 15 17 Rate Blood Pressure Blood Pressure [Left Brachial artery] O2 Saturation 98 05/30/19 05/30/19 05/30/19 22:35 22:40 22:45 Temperature Heart Rate 84 64 65 Heart Rate [ Monitoring electrodes] Respiratory 17 13 13 Rate Blood Pressure Blood Pressure [Left Brachial artery] O2 Saturation 05/30/19 05/30/19 05/30/19 22:50 22:55 23:00 Temperature Heart Rate 66 77 80 Heart Rate [ 74 Monitoring electrodes] Respiratory 13 14 15 Rate Blood Pressure Blood Pressure 112/92 H [Left Brachial artery] O2 Saturation 96 05/30/19 05/30/19 05/30/19 23:01 23:05 23:10 Temperature Heart Rate 78 72 83 Heart Rate [ Monitoring electrodes] Respiratory 16 13 13 Rate Blood Pressure 112/92 H Blood Pressure [Left Brachial artery] O2 Saturation 05/30/19 05/30/19 05/30/19 23:15 23:20 23:25 Temperature Heart Rate 93 86 92 Heart Rate [ Monitoring electrodes] Respiratory 28 H 13 18 Rate Blood Pressure Blood Pressure [Left Brachial artery] O2 Saturation 05/30/19 05/30/19 05/30/19 23:30 23:35 23:40 Temperature Heart Rate 94 93 95 Heart Rate [ Monitoring electrodes] Respiratory 15 12 13 Rate Blood Pressure Blood Pressure [Left Brachial artery] O2 Saturation 05/30/19 05/30/19 05/30/19 23:45 23:50 23:55 Temperature Heart Rate 98 97 97 Heart Rate [ Monitoring electrodes] Respiratory 11 L 12 12 Rate Blood Pressure Blood Pressure [Left Brachial artery] O2 Saturation 05/31/19 05/31/19 05/31/19 00:00 00:01 00:05 Temperature 36.4 C L Heart Rate 98 98 95 Heart Rate [ 97 Monitoring electrodes] Respiratory 17 16 24 Rate Blood Pressure 117/44 L Blood Pressure 117/44 L [Left Brachial artery] O2 Saturation 92 05/31/19 05/31/19 05/31/19 00:10 00:15 00:20 Temperature Heart Rate 97 104 H 96 Heart Rate [ Monitoring electrodes] Respiratory 19 16 13 Rate Blood Pressure Blood Pressure [Left Brachial artery] O2 Saturation 05/31/19 05/31/19 05/31/19 00:25 00:30 00:35 Temperature Heart Rate 93 92 87 Heart Rate [ Monitoring electrodes] Respiratory 12 12 12 Rate Blood Pressure Blood Pressure [Left Brachial artery] O2 Saturation 05/31/19 05/31/19 05/31/19 00:40 00:45 00:50 Temperature Heart Rate 89 86 85 Heart Rate [ Monitoring electrodes] Respiratory 10 L 12 13 Rate Blood Pressure Blood Pressure [Left Brachial artery] O2 Saturation 05/31/19 05/31/19 05/31/19 00:55 01:00 02:00 Temperature Heart Rate 90 88 Heart Rate [ 87 91 Monitoring electrodes] Respiratory 13 12 20 Rate Blood Pressure Blood Pressure 101/39 L 101/54 L [Left Brachial artery] O2 Saturation 95 95 05/31/19 05/31/19 05/31/19 02:25 02:30 02:35 Temperature Heart Rate 83 82 79 Heart Rate [ Monitoring electrodes] Respiratory 13 17 18 Rate Blood Pressure Blood Pressure [Left Brachial artery] O2 Saturation 05/31/19 05/31/19 05/31/19 02:40 02:45 02:50 Temperature Heart Rate 76 95 87 Heart Rate [ Monitoring electrodes] Respiratory 20 22 14 Rate Blood Pressure Blood Pressure [Left Brachial artery] O2 Saturation 05/31/19 05/31/19 05/31/19 02:55 03:00 03:01 Temperature Heart Rate 85 82 82 Heart Rate [ 82 Monitoring electrodes] Respiratory 19 12 15 Rate Blood Pressure 91/35 L Blood Pressure 103/49 L [Left Brachial artery] O2 Saturation 93 05/31/19 05/31/19 05/31/19 03:02 03:03 03:04 Temperature Heart Rate 83 79 79 Heart Rate [ Monitoring electrodes] Respiratory 12 11 L 18 Rate Blood Pressure 89/30 L Blood Pressure [Left Brachial artery] O2 Saturation 05/31/19 05/31/19 05/31/19 03:05 03:06 03:10 Temperature Heart Rate 81 81 82 Heart Rate [ Monitoring electrodes] Respiratory 12 12 13 Rate Blood Pressure 103/49 L Blood Pressure [Left Brachial artery] O2 Saturation 05/31/19 05/31/19 05/31/19 03:15 03:20 03:25 Temperature Heart Rate 73 75 74 Heart Rate [ Monitoring electrodes] Respiratory 12 14 14 Rate Blood Pressure Blood Pressure [Left Brachial artery] O2 Saturation 05/31/19 05/31/19 05/31/19 03:30 03:35 03:40 Temperature Heart Rate 77 69 75 Heart Rate [ Monitoring electrodes] Respiratory 16 20 16 Rate Blood Pressure Blood Pressure [Left Brachial artery] O2 Saturation 05/31/19 05/31/19 05/31/19 03:45 03:50 03:55 Temperature Heart Rate 72 75 73 Heart Rate [ Monitoring electrodes] Respiratory 13 14 14 Rate Blood Pressure Blood Pressure [Left Brachial artery] O2 Saturation 05/31/19 05/31/19 05/31/19 03:59 04:00 04:01 Temperature 36.8 C Heart Rate 74 70 70 Heart Rate [ 69 Monitoring electrodes] Respiratory 15 14 13 Rate Blood Pressure 83/35 L Blood Pressure 107/49 L [Left Brachial artery] O2 Saturation 96 05/31/19 05/31/19 05/31/19 04:05 04:10 04:15 Temperature Heart Rate 71 74 79 Heart Rate [ Monitoring electrodes] Respiratory 14 16 11 L Rate Blood Pressure Blood Pressure [Left Brachial artery] O2 Saturation 05/31/19 05/31/19 05/31/19 04:20 04:21 04:25 Temperature Heart Rate 77 81 71 Heart Rate [ Monitoring electrodes] Respiratory 15 13 13 Rate Blood Pressure 107/49 L Blood Pressure [Left Brachial artery] O2 Saturation 05/31/19 05/31/19 05/31/19 04:30 04:35 04:40 Temperature Heart Rate 71 69 72 Heart Rate [ Monitoring electrodes] Respiratory 14 14 17 Rate Blood Pressure Blood Pressure [Left Brachial artery] O2 Saturation 05/31/19 05/31/19 05/31/19 04:45 04:50 04:55 Temperature Heart Rate 72 71 68 Heart Rate [ Monitoring electrodes] Respiratory 13 13 14 Rate Blood Pressure Blood Pressure [Left Brachial artery] O2 Saturation 05/31/19 05/31/19 05/31/19 04:59 05:00 05:01 Temperature Heart Rate 69 68 70 Heart Rate [ 64 Monitoring electrodes] Respiratory 15 14 15 Rate Blood Pressure 87/42 L Blood Pressure 94/50 L [Left Brachial artery] O2 Saturation 96 05/31/19 05/31/19 05/31/19 05:05 05:07 05:08 Temperature Heart Rate 67 67 66 Heart Rate [ Monitoring electrodes] Respiratory 14 13 13 Rate Blood Pressure 94/50 L Blood Pressure [Left Brachial artery] O2 Saturation 05/31/19 05/31/19 05/31/19 05:10 05:15 05:20 Temperature Heart Rate 67 65 62 Heart Rate [ Monitoring electrodes] Respiratory 12 15 12 Rate Blood Pressure Blood Pressure [Left Brachial artery] O2 Saturation 05/31/19 05/31/19 05/31/19 05:25 05:30 06:00 Temperature Heart Rate 65 65 Heart Rate [ 64 Monitoring electrodes] Respiratory 13 13 16 Rate Blood Pressure Blood Pressure 96/50 L [Left Brachial artery] O2 Saturation 97 05/31/19 05/31/19 07:00 08:00 Temperature 36.8 C Heart Rate Heart Rate [ 65 72 Monitoring electrodes] Respiratory 14 16 Rate Blood Pressure Blood Pressure 84/45 L 103/53 L [Left Brachial artery] O2 Saturation 96 98 Oxygen O2 Source [Without Activity] Nasal cannula O2 Source Nasal cannula I&O (Last 24 Hrs): Intake and Output Totals x24h 05/29/19 05/30/19 05/31/19 23:59 23:59 23:59 Intake Total 1219 2580 Output Total 1450 850 Balance -231 1730 General: Alert, Oriented x3 HEENT: Mucous membr. moist/pink, Other (Pale) Neck: Supple Neuro: Non Focal Cardiovascular: Regular rate, No murmurs Respiratory: No respiratory distress, Breath sounds nml Abdomen: Normal bowel sounds, Soft, Other (Obese with pannus) Extremities: No edema - Results Results: Laboratory Results WBC 6.8 x10^3/uL (4.8-10.8) 05/31/19 04:15 RBC 2.32 10^6/uL (4.20-5.40) L 05/31/19 04:15 Hgb 6.8 g/dL (12.0-16.0) L* 05/31/19 04:15 Hct 23.5 % (37.0-47.0) L 05/31/19 04:15 MCV 101.3 fL (81.0-99.0) H 05/31/19 04:15 MCH 29.3 pg (27.0-31.0) 05/31/19 04:15 MCHC 28.9 g/dL (32.0-36.0) L 05/31/19 04:15 RDW 16.5 % (12.0-15.0) H 05/31/19 04:15 Plt Count 195 10^3/uL (130-450) 05/31/19 04:15 MPV 10.7 fL (7.9-10.8) 05/31/19 04:15 Neut # (Auto) 4.8 10^3/uL (1.5-6.6) 05/31/19 04:15 Lymph # (Auto) 1.0 10^3/uL (1.5-3.5) L 05/31/19 04:15 [place] # (Auto) 0.7 10^3/uL (0.0-1.0) 05/31/19 04:15 Eos # (Auto) 0.2 10^3/uL (0.0-0.7) 05/31/19 04:15 Baso # (Auto) 0.0 10^3/uL (0.0-0.1) 05/31/19 04:15 Absolute Nucleated RBC 0.00 x10^3/uL 05/31/19 04:15 Nucleated RBC % 0.0 /100WBC 05/31/19 04:15 Manual Slide Review Indicated 05/31/19 04:15 WBC Morphology NORMAL APPEARANCE (NORMAL) 05/31/19 04:15 Platelet Estimate NORMAL (130-450,000) (NORMAL) 05/31/19 04:15 Platelet Morphology NORMAL APPEARANCE (NORMAL) 05/31/19 04:15 RBC Morph Micro Appear 2+ ANISOCYTOSIS (NORMAL) 1+ HYPOCHROMASIA (NORMAL) 2+ POIKILOCYTOSIS (NORMAL) 05/30/19 15:20 RBC Morph Micro Appear 2+ ANISOCYTOSIS (NORMAL) 1+ HYPOCHROMASIA (NORMAL) 2+ POIKILOCYTOSIS (NORMAL) 05/30/19 15:20 RBC Morph Micro Appear 2+ HYPOCHROMASIA (NORMAL) 05/31/19 04:15 VBG pH 7.162 (7.31-7.41) L 05/31/19 04:15 Ionized Calcium 1.13 mmol/L (1.15-1.33) L 05/31/19 04:15 Sodium 138 mmol/L (135-145) 05/31/19 04:15 Potassium 6.0 mmol/L (3.5-5.0) H* 05/31/19 04:15 Chloride 108 mmol/L (101-111) 05/31/19 04:15 Carbon Dioxide 21 mmol/L (21-32) 05/31/19 04:15 Anion Gap 9.0 (6-13) 05/31/19 04:15 BUN 90 mg/dL (6-20) H* 05/31/19 04:15 Creatinine 2.9 mg/dL (0.4-1.0) H 05/31/19 04:15 Estimated GFR (MDRD) 16 (>89) L 05/31/19 04:15 Glucose 222 mg/dL (70-100) H 05/31/19 04:15 POC Whole Bld Glucose 189 mg/dL (70 - 100) H 05/31/19 07:52 Glycated Hemoglobin 8.5 % (4.6-6.2) H 05/31/19 04:15 Estim Average Glucose 197 (70-100) H 05/31/19 04:15 Calcium 8.0 mg/dL (8.5-10.3) L 05/31/19 04:15 Phosphorus 4.8 mg/dL (2.5-4.6) H 05/31/19 04:15 Magnesium 1.5 mg/dL (1.7-2.8) L 05/31/19 04:15 Total Bilirubin 0.3 mg/dL (0.2-1.0) 05/30/19 15:20 AST < 10 IU/L (10-42) L 05/30/19 15:20 ALT < 10 IU/L (10-60) L 05/30/19 15:20 Alkaline Phosphatase 70 IU/L (42-121) 05/30/19 15:20 Total Protein 7.1 g/dL (6.7-8.2) 05/30/19 15:20 Albumin 3.6 g/dL (3.2-5.5) 05/30/19 15:20 Globulin 3.5 g/dL (2.1-4.2) 05/30/19 15:20 Albumin/Globulin Ratio 1.0 (1.0-2.2) 05/30/19 15:20 Lipase 22 U/L (22-51) 05/30/19 15:20 Nasal Screen MRSA (PCR) NEGATIVE (NEGATIVE) 05/30/19 17:45 Blood Type O POSITIVE 05/30/19 15:20 Antibody Screen NEGATIVE 05/30/19 15:20 Crossmatch IS Only See Detail 05/30/19 15:20 - Procedures Procedures: Procedures INSERTION OF INFUSION DEV INTO L SUBCLAV VEIN, PERC APPROACH (12/31/18) INSERTION OF INFUSION DEV INTO SUP VENA CAVA, PERC APPROACH (02/16/19) ULTRASONOGRAPHY OF RIGHT SUBCLAVIAN VEIN, GUIDANCE (12/31/18)
[2019-05-31] MEDS ORDERED: METOPROLOL SUCCINATE 50 MG TABLET PO SCH ×2 (09:00)
[2019-05-31] MEDS: LEVOTHYROXINE 75 MCG TABLET PO SCH (09:42)
[2019-05-31] MEDS: NYSTATIN CREAM 15 GM TUBE TOP SCH ×2 (10:42→21:13)
[2019-05-31] MEDS: MIN OIL/DIMETHICON/COCONUT OIL 92 GM TUBE TOP PRN ×2 (10:43→21:13)
[2019-05-31] MEDS ORDERED: PEG 3350/NA SULF,BICARB,CL/KCL 4,000 ML BOTTLE PO ONE (10:48)
[2019-05-31 11:20] LABS: CALCIUM 8.1 mg/dL (8.5-10.3); CREATININE 2.8 mg/dL (0.4-1.0)
[2019-05-31] MEDS ORDERED: DEXTROSE 5%-0.9% NACL 1,000 ML IV SCH ×2 (12:00→21:37)
[2019-05-31] MEDS: INSULIN REGULAR HUMAN 100 UNIT in SODIUM CHLORIDE 0.9% 100ML 99 ML IV ONE (12:16)
[2019-05-31 15:56] LABS: HGB - HEMOGLOBIN 6.8 g/dL (12.0-16.0)
[2019-05-31] MEDS: IPRATROPIUM/ALBUTEROL 3 ML NEB INH SCH ×2 (18:48→19:17)
[2019-05-31] MEDS ORDERED: ALBUTEROL NEB 2.5 MG/3 ML INH ONE (22:20)
[2019-05-31] MEDS: DEXTROSE 5%-0.9% NACL 1,000 ML IV SCH (22:25)
[2019-06-01] MEDS ORDERED: FUROSEMIDE 20 MG/2 ML VIAL IVP STA (00:15)
[2019-06-01 00:43] LABS: CALCIUM 7.7 mg/dL (8.5-10.3); CREATININE 2.4 mg/dL (0.4-1.0)
[2019-06-01] MEDS: SODIUM CHLORIDE FLUSH 0.9% 10 ML SYRINGE IVP SCH ×3 (00:59→17:11)
[2019-06-01 02:30] LABS: CREATININE 2.4 mg/dL (0.4-1.0)
[2019-06-01] MEDS: ACETAMINOPHEN 325 MG TABLET PO PRN (02:56)
[2019-06-01 05:02] LABS: BASOPHILS % (AUTO) 0.4 %; EOSINOPHILS # (AUTO) 0.2 10^3/uL (0.0-0.7); EOSINOPHILS % (AUTO) 2.3 %; LYMPHOCYTES # (AUTO) 0.7 10^3/uL (1.5-3.5); LYMPHOCYTES % (AUTO) 10.4 %; MEAN CORPUSCULAR HEMOGLOBIN 29.7 pg (27.0-31.0); MEAN CORPUSCULAR HGB CONC 29.5 g/dL (32.0-36.0); MEAN CORPUSCULAR VOLUME 100.5 fL (81.0-99.0); MEAN PLATELET VOLUME 10.5 fL (7.9-10.8); MONOCYTES # (AUTO) 0.7 10^3/uL (0.0-1.0); MONOCYTES % (AUTO) 9.9 %; NEUTROPHILS # (AUTO) 5.2 10^3/uL (1.5-6.6); PLT - PLATELET COUNT 200 10^3/uL (130-450); RED BLOOD COUNT 2.19 10^6/uL (4.20-5.40); RED CELL DISTRIBUTION WIDTH 16.4 % (12.0-15.0); WHITE BLOOD COUNT 6.9 x10^3/uL (4.8-10.8)
[2019-06-01 05:07] LABS: CALCIUM 8.2 mg/dL (8.5-10.3); CREATININE 2.3 mg/dL (0.4-1.0)
[2019-06-01 05:08] LABS: HGB - HEMOGLOBIN 6.5 g/dL (12.0-16.0)
[2019-06-01] MEDS: DEXTROSE 5%-0.9% NACL 1,000 ML IV SCH ×3 (05:56→17:11)
[2019-06-01 06:26] LABS: ALBUMIN 2.9 g/dL (3.2-5.5); MAGNESIUM 1.6 mg/dL (1.7-2.8); PHOSPHORUS 3.5 mg/dL (2.5-4.6)
[2019-06-01] MEDS ORDERED: MAGNESIUM SULFATE 2 GRAM 2 GM/50 ML BAG IV ONE (07:30)
[2019-06-01] MEDS ORDERED: SODIUM POLYSTYRENE SULFONATE 15 GM/60 ML BOTTLE PO ONE ×2 (07:47→08:45)
--- NOTE | 2019-06-01 07:52 | PROVIDER PROGRESS NOTE ---
Assessment/Plan - Problem List (1) Hypotension Assessment/Plan: BP is still "soft". She is now 2.5L (+) fluid balance. Decrease iv hydration planned if transfusion of 1 U PRBCs today, to get Hgb to 7. Still hold home BP meds, except lower dose of Toprol Remain in ICU (2) Anemia due to gastrointestinal blood loss Assessment/Plan: Hgb appears to have plateaued at 6.5. Will follow H/H q6h, and order 1U PRBCs if not climbing to 7. (3) Rectal bleeding Assessment/Plan: No further BRBPR bleeding since admission day. Plan is to evaluate the entire colon with a colonoscopy hopefully tomorrow (4) Hyperkalemia Assessment/Plan: K is still elevated despite D5 drip and Insulin drip. Will add daily Kayexelate. Follow serum K q6h. (5) Acute on chronic kidney failure Assessment/Plan: Slow improvement in creat with iv hydration, from 3.5 at admission>> 2.8 yesterday>> 2.3 today. Her baseline creat is 1.5 - 2. Continue gentle hydration/transfiusion today. Avoid nephrotoxins. Monitor Is and Os. Follow BMP daily. (6) Chronic diastolic heart failure Assessment/Plan: The most recent Echo, done when she had NSTEMI several mos ago, showed LV diastolic dysfunction with a preserved LVEF. In 2018, her EF was 45%. No clinical signs of volume overload, with stable O2 sats on her 3L (chronic) supplemental oxygen and no c/o orthopnea. (7) Decubitus ulcer, buttock Assessment/Plan: Topical care. (8) Type 2 diabetes mellitus with hyperglycemia, with long-term current use of insulin Assessment/Plan: Clear liquid diet for a second day, in preparation for colonoscopy.\\ She is on iv D5 and IV Insulin drip (to treat hyperkalemia). (9) Chronic indwelling Blanco catheter Assessment/Plan: Continue Blanco care. (10) History of COPD Assessment/Plan: Stable, no exacerbation this admission. (11) History of hypothyroidism Assessment/Plan: She remains on her home thyroid replacement dose. (12) Chronic pain Assessment/Plan: She denies pain on her regimen (13) History of anxiety Assessment/Plan: Stable this admission. - Current Meds Current Meds: Current Medications Generic Name Dose Route Start Last Admin Trade Name Leroyq PRN Reason Stop Dose Admin Acetaminophen 650 mg 05/30/19 16:36 06/01/19 02:56 Tylenol PO 650 mg Q4HR PRN Administration Pain 1 to 4 Albuterol/Ipratropium 3 ml 05/31/19 09:00 05/31/19 19:17 Duoneb INH 3 ml RTBID PERNELL Administration Insulin Human Regular 100 unit 100 mls @ 1 mls/hr 05/31/19 12:00 06/01/19 07:20 / Sodium Chloride IV 06/03/19 11:59 3.7 unit/hr .Q72H ONE 3.7 mls/hr Titration Protocol 1 UNIT/HR Levothyroxine Sodium 150 mcg 05/31/19 09:00 05/31/19 09:42 Synthroid PO 150 mcg QDAC PERNELL Administration Metoprolol Succinate 12.5 mg 05/31/19 09:00 05/31/19 11:41 Toprol Xl PO Not Given DAILY PERNELL Mineral Oil 1 applic 05/30/19 22:23 05/31/19 21:13 Cavilon TOP 1 applic PRN PRN Administration Skin Care Nystatin 1 applic 05/31/19 09:00 05/31/19 21:13 Mycostatin Cream TOP 1 applic BID PERNELL Administration Pantoprazole Sodium 40 mg 05/30/19 21:00 05/31/19 21:16 Protonix IVP 40 mg BID PERNELL Administration Sodium Chloride 10 ml 05/30/19 17:00 06/01/19 00:59 Normal Saline Flush 0.9% IVP Not Given 0100,0900,1700 PERNELL - Lab Result Fish Bone Diagrams: 06/01/19 12:08 06/01/19 12:08 - Additional Planning My Orders: My Active Orders 05/31/19 08:42 HYDROcod/ACETAM 5/325 [[place] 5/325] 1 tab PO TID PRN 05/31/19 08:44 Nebulizer/MDI Tx. [RC] QID 05/31/19 09:00 Ipratropium/Albuterol [Duoneb] 3 ml INH RTBID Levothyroxine [Synthroid] 150 mcg PO QDAC Metoprolol Succinate [Toprol Xl] 12.5 mg PO DAILY Nystatin Cream [Mycostatin Cream] 1 applic TOP BID 05/31/19 11:36 Blood Glucose POC [RC] PRN 05/31/19 12:00 Sodium Chloride 0.9% 100Ml [Normal Saline 0.9% 100Ml] 99 ml Insulin Regular Human [NovoLIN R] 100 unit IV 1 unit/hr 05/31/19 Lunch Clear Liquid Diet [DIET] 06/01/19 07:30 Magnesium Sulfate 2 Gram [Magnesium Sulfate] 2 gm in 50 ml IV ONCE 06/01/19 07:47 Sod Polystyrene Sulf. [Kayexalate] 15 gm PO ONCE ONE 06/01/19 12:00 POTASSIUM [CHEM] Q6H 06/01/19 18:00 POTASSIUM [CHEM] Q6H 06/02/19 00:00 POTASSIUM [CHEM] Q6H 06/02/19 05:00 BMP - BASIC METABOLIC PANEL [CHEM] DAILYLAB CBC - COMP BLD CT W/AUTO DIFF [HEME] DAILYLAB MAGNESIUM [CHEM] DAILYLAB PHOSPHORUS [CHEM] DAILYLAB 06/02/19 08:00 Sod Polystyrene Sulf. [Kayexalate] 15 gm PO 0800 06/03/19 05:00 CBC - COMP BLD CT W/AUTO DIFF [HEME] DAILYLAB MAGNESIUM [CHEM] DAILYLAB PHOSPHORUS [CHEM] DAILYLAB 06/04/19 05:00 MAGNESIUM [CHEM] DAILYLAB PHOSPHORUS [CHEM] DAILYLAB Subjective - Subjective Patient Reports: Feeling Better, Resting Comfortably, No Complaints Nursing Reports: Other (Very little stool, after dosing GoLytely 3L thus far) Objective Vital Signs: Vital Signs - 24 hr 05/31/19 05/31/19 05/31/19 08:00 09:00 10:00 Temperature 36.8 C Heart Rate 77 Heart Rate [ 72 69 69 Monitoring electrodes] Respiratory 19 14 18 Rate Blood Pressure 103/53 L 109/47 L 100/60 [Left Brachial artery] Blood Pressure [Left Radial artery] O2 Saturation 98 100 98 05/31/19 05/31/19 05/31/19 11:00 12:00 13:00 Temperature 36.9 C Heart Rate Heart Rate [ 69 76 70 Monitoring electrodes] Respiratory 16 20 17 Rate Blood Pressure 109/48 L 117/55 L 130/59 L [Left Brachial artery] Blood Pressure [Left Radial artery] O2 Saturation 100 100 97 05/31/19 05/31/19 05/31/19 14:00 15:00 16:00 Temperature 36.8 C Heart Rate Heart Rate [ 74 64 65 Monitoring electrodes] Respiratory 14 14 16 Rate Blood Pressure 106/56 L 124/54 L 124/61 [Left Brachial artery] Blood Pressure [Left Radial artery] O2 Saturation 97 99 100 05/31/19 05/31/19 05/31/19 17:00 18:00 18:58 Temperature Heart Rate Heart Rate [ 73 77 72 Monitoring electrodes] Respiratory 17 18 17 Rate Blood Pressure 137/58 H 130/58 L 130/58 L [Left Brachial artery] Blood Pressure [Left Radial artery] O2 Saturation 99 100 99 05/31/19 05/31/19 05/31/19 19:15 19:40 20:00 Temperature 36.9 C Heart Rate 100 Heart Rate [ 71 83 Monitoring electrodes] Respiratory 18 17 22 Rate Blood Pressure [Left Brachial artery] Blood Pressure 108/74 [Left Radial artery] O2 Saturation 100 98 05/31/19 05/31/19 05/31/19 21:00 22:00 23:00 Temperature Heart Rate Heart Rate [ 74 85 75 Monitoring electrodes] Respiratory 13 24 12 Rate Blood Pressure [Left Brachial artery] Blood Pressure 113/45 L 126/71 124/59 L [Left Radial artery] O2 Saturation 93 97 98 05/31/19 06/01/19 06/01/19 23:02 00:00 01:07 Temperature 36.3 C L Heart Rate 77 Heart Rate [ 107 H 101 H Monitoring electrodes] Respiratory 18 14 15 Rate Blood Pressure [Left Brachial artery] Blood Pressure 124/51 L 107/48 L [Left Radial artery] O2 Saturation 91 L 93 06/01/19 06/01/19 06/01/19 02:00 03:00 04:00 Temperature 37.3 C Heart Rate Heart Rate [ 94 90 82 Monitoring electrodes] Respiratory 15 19 14 Rate Blood Pressure [Left Brachial artery] Blood Pressure 106/45 L 115/56 L 115/56 L [Left Radial artery] O2 Saturation 91 L 98 96 06/01/19 06/01/19 05:09 06:00 Temperature Heart Rate Heart Rate [ 77 70 Monitoring electrodes] Respiratory 16 14 Rate Blood Pressure 102/45 L [Left Brachial artery] Blood Pressure 102/45 L [Left Radial artery] O2 Saturation 95 97 Oxygen O2 Source [Without Activity] Nasal cannula O2 Source Nasal cannula I&O (Last 24 Hrs): Intake and Output Totals x24h 05/30/19 05/31/19 06/01/19 23:59 23:59 23:59 Intake Total 1219 7788.576 375.854 Output Total 1450 5400 1900 Balance -231 2388.576 -1524.146 General: Alert, Oriented x3, Other (Pale) HEENT: Mucous membr. moist/pink Neck: Supple Neuro: Non Focal Cardiovascular: Regular rate Respiratory: No respiratory distress Abdomen: Soft, Other (Obese with pannus) Extremities: No edema - Results Results: Laboratory Results WBC 6.9 x10^3/uL (4.8-10.8) 06/01/19 04:20 RBC 2.19 10^6/uL (4.20-5.40) L 06/01/19 04:20 Hgb 6.5 g/dL (12.0-16.0) L* 06/01/19 04:20 Hct 22.0 % (37.0-47.0) L 06/01/19 04:20 MCV 100.5 fL (81.0-99.0) H 06/01/19 04:20 MCH 29.7 pg (27.0-31.0) 06/01/19 04:20 MCHC 29.5 g/dL (32.0-36.0) L 06/01/19 04:20 RDW 16.4 % (12.0-15.0) H 06/01/19 04:20 Plt Count 200 10^3/uL (130-450) 06/01/19 04:20 MPV 10.5 fL (7.9-10.8) 06/01/19 04:20 Neut # (Auto) 5.2 10^3/uL (1.5-6.6) 06/01/19 04:20 Lymph # (Auto) 0.7 10^3/uL (1.5-3.5) L 06/01/19 04:20 [place] # (Auto) 0.7 10^3/uL (0.0-1.0) 06/01/19 04:20 Eos # (Auto) 0.2 10^3/uL (0.0-0.7) 06/01/19 04:20 Baso # (Auto) 0.0 10^3/uL (0.0-0.1) 06/01/19 04:20 Absolute Nucleated RBC 0.00 x10^3/uL 06/01/19 04:20 Nucleated RBC % 0.0 /100WBC 06/01/19 04:20 Manual Slide Review Indicated 05/31/19 04:15 WBC Morphology NORMAL APPEARANCE (NORMAL) 05/31/19 04:15 Platelet Estimate NORMAL (130-450,000) (NORMAL) 05/31/19 04:15 Platelet Morphology NORMAL APPEARANCE (NORMAL) 05/31/19 04:15 RBC Morph Micro Appear 2+ ANISOCYTOSIS (NORMAL) 1+ HYPOCHROMASIA (NORMAL) 2+ POIKILOCYTOSIS (NORMAL) 05/30/19 15:20 RBC Morph Micro Appear 2+ ANISOCYTOSIS (NORMAL) 1+ HYPOCHROMASIA (NORMAL) 2+ POIKILOCYTOSIS (NORMAL) 05/30/19 15:20 RBC Morph Micro Appear 2+ HYPOCHROMASIA (NORMAL) 05/31/19 04:15 VBG pH 7.162 (7.31-7.41) L 05/31/19 04:15 Ionized Calcium 1.13 mmol/L (1.15-1.33) L 05/31/19 04:15 Sodium 143 mmol/L (135-145) 06/01/19 04:20 Potassium 5.5 mmol/L (3.5-5.0) H 06/01/19 04:20 Chloride 112 mmol/L (101-111) H 06/01/19 04:20 Carbon Dioxide 21 mmol/L (21-32) 06/01/19 04:20 Anion Gap 10.0 (6-13) 06/01/19 04:20 BUN 68 mg/dL (6-20) H 06/01/19 04:20 Creatinine 2.3 mg/dL (0.4-1.0) H 06/01/19 04:20 Estimated GFR (MDRD) 21 (>89) L 06/01/19 04:20 Glucose 266 mg/dL (70-100) H 06/01/19 04:20 POC Whole Bld Glucose 185 mg/dL (70 - 100) H 06/01/19 07:18 Glycated Hemoglobin 8.5 % (4.6-6.2) H 05/31/19 04:15 Estim Average Glucose 197 (70-100) H 05/31/19 04:15 Calcium 8.2 mg/dL (8.5-10.3) L 06/01/19 04:20 Phosphorus 3.5 mg/dL (2.5-4.6) 06/01/19 04:20 Magnesium 1.6 mg/dL (1.7-2.8) L 06/01/19 04:20 Total Bilirubin 0.3 mg/dL (0.2-1.0) 05/30/19 15:20 AST < 10 IU/L (10-42) L 05/30/19 15:20 ALT < 10 IU/L (10-60) L 05/30/19 15:20 Alkaline Phosphatase 70 IU/L (42-121) 05/30/19 15:20 Total Protein 7.1 g/dL (6.7-8.2) 05/30/19 15:20 Albumin 2.9 g/dL (3.2-5.5) L 06/01/19 04:20 Globulin 3.5 g/dL (2.1-4.2) 05/30/19 15:20 Albumin/Globulin Ratio 1.0 (1.0-2.2) 05/30/19 15:20 Lipase 22 U/L (22-51) 05/30/19 15:20 Nasal Screen MRSA (PCR) NEGATIVE (NEGATIVE) 05/30/19 17:45 Blood Type O POSITIVE 05/30/19 15:20 Antibody Screen NEGATIVE 05/30/19 15:20 Crossmatch IS Only See Detail 05/30/19 15:20 - Procedures Procedures: Procedures INSERTION OF INFUSION DEV INTO L SUBCLAV VEIN, PERC APPROACH (12/31/18) INSERTION OF INFUSION DEV INTO SUP VENA CAVA, PERC APPROACH (02/16/19) ULTRASONOGRAPHY OF RIGHT SUBCLAVIAN VEIN, GUIDANCE (12/31/18)
[2019-06-01] MEDS: LEVOTHYROXINE 75 MCG TABLET PO SCH (08:12)
[2019-06-01] MEDS: PANTOPRAZOLE 40 MG VIAL IVP SCH ×2 (08:34→20:58)
[2019-06-01] MEDS ORDERED: METOPROLOL SUCCINATE 25 MG TABLET PO SCH (09:00)
[2019-06-01] MEDS: MIN OIL/DIMETHICON/COCONUT OIL 92 GM TUBE TOP PRN ×2 (09:17→18:00)
[2019-06-01] MEDS: NYSTATIN CREAM 15 GM TUBE TOP SCH ×2 (09:17→20:58)
[2019-06-01] MEDS: METOPROLOL SUCCINATE 25 MG TABLET PO SCH (10:19)
[2019-06-01] MEDS: IPRATROPIUM/ALBUTEROL 3 ML NEB INH SCH ×2 (10:20→19:21)
[2019-06-01 12:15] LABS: HGB - HEMOGLOBIN 7.2 g/dL (12.0-16.0)
[2019-06-01] MEDS: INSULIN REGULAR HUMAN 100 UNIT in SODIUM CHLORIDE 0.9% 100ML 99 ML IV ONE (16:35)
[2019-06-01] MEDS: HYDROcod/ACETAM 5/325 MG TABLET PO PRN (18:05)
[2019-06-01] MEDS ORDERED: SODIUM CHLORIDE 0.9% 1,000 ML IV SCH (19:00)
[2019-06-02] MEDS: SODIUM CHLORIDE FLUSH 0.9% 10 ML SYRINGE IVP SCH ×3 (00:18→16:21)
[2019-06-02] MEDS: HYDROcod/ACETAM 5/325 MG TABLET PO PRN (00:18)
[2019-06-02 05:27] LABS: BASOPHILS % (AUTO) 0.6 %; EOSINOPHILS # (AUTO) 0.2 10^3/uL (0.0-0.7); EOSINOPHILS % (AUTO) 4.1 %; HGB - HEMOGLOBIN 7.4 g/dL (12.0-16.0); LYMPHOCYTES # (AUTO) 1.1 10^3/uL (1.5-3.5); LYMPHOCYTES % (AUTO) 23.7 %; MEAN CORPUSCULAR HGB CONC 28.7 g/dL (32.0-36.0); MEAN CORPUSCULAR VOLUME 101.2 fL (81.0-99.0); MEAN PLATELET VOLUME 10.5 fL (7.9-10.8); MONOCYTES # (AUTO) 0.5 10^3/uL (0.0-1.0); MONOCYTES % (AUTO) 11.4 %; NEUTROPHILS # (AUTO) 2.7 10^3/uL (1.5-6.6); NEUTROPHILS % (AUTO) 59.1 %; PLT - PLATELET COUNT 220 10^3/uL (130-450); RED BLOOD COUNT 2.55 10^6/uL (4.20-5.40); RED CELL DISTRIBUTION WIDTH 16.8 % (12.0-15.0); WHITE BLOOD COUNT 4.6 x10^3/uL (4.8-10.8)
[2019-06-02 05:28] LABS: CALCIUM 8.7 mg/dL (8.5-10.3); PHOSPHORUS 3.1 mg/dL (2.5-4.6)
[2019-06-02 05:52] LABS: PLATELET ESTIMATE, MANUAL NORMAL (130-450,000) (NORMAL); PLATELET MORPHOLOGY NORMAL APPEARANCE (NORMAL); RBC MORPHOLOGY (MULTIPLE) 1+ HYPOCHROMASIA (NORMAL)
[2019-06-02] MEDS: LEVOTHYROXINE 75 MCG TABLET PO SCH (06:24)
[2019-06-02] MEDS: IPRATROPIUM/ALBUTEROL 3 ML NEB INH SCH ×2 (07:44→20:00)
[2019-06-02] MEDS: PANTOPRAZOLE 40 MG VIAL IVP SCH ×2 (08:08→21:14)
[2019-06-02] MEDS: METOPROLOL SUCCINATE 25 MG TABLET PO SCH ×2 (08:10→21:14)
[2019-06-02] MEDS: SODIUM POLYSTYRENE SULFONATE 15 GM/60 ML BOTTLE PO SCH (08:10)
[2019-06-02] MEDS ORDERED: PEG 3350/NA SULF,BICARB,CL/KCL 4,000 ML BOTTLE PO ONE (09:53)
--- NOTE | 2019-06-02 10:48 | PROVIDER PROGRESS NOTE ---
Assessment/Plan - Problem List (1) Hypotension Assessment/Plan: BP has improved to WNL. Will slowly advance the B-israel dose toward what she took at home. Remain off scheduled Lasix, Spironolactone and Amlodipine. (2) Anemia due to gastrointestinal blood loss Assessment/Plan: Hgb has stabilized, after hemodilution due to saline hydration, at 7. She will be transferred out of the ICU. Continue daily H/H monitoring Awaiting colonoscopy (3) Rectal bleeding Assessment/Plan: No further BRBPR since admission. With her Golytly prep, black and browm liquidy stools were seen by her RN (4) Hyperkalemia Assessment/Plan: Last evening the D5 and Insulin drip were stopped when her serum K improved to 4.6 This a.m. the serum K has climbed to 5.0 again, despite a better creat and a low K diet requested. Since yesterday, she is now on daily Kayexelate. Monitor serum K q6h. Remain on telemetry. (5) Acute on chronic kidney failure Assessment/Plan: Her creat has improved with hydration from 3.5 at admission to 2.0 today. Her baseline creat is 1.5 - 2.0. Monitor renal labs daily. Remain off scheduled Lasix and Spironolactone. (6) Chronic diastolic heart failure Assessment/Plan: Today she has basal rales. CXR ordered. Will decrease peripheral iv rate to TKO, but her only hydration otherwise is po clear liquids. (7) Decubitus ulcer, buttock Assessment/Plan: Topical care. (8) Type 2 diabetes mellitus with hyperglycemia, with long-term current use of insulin Assessment/Plan: Will continue a ss Insulin protocol, while on clear liquids. (9) Chronic indwelling Blanco catheter Assessment/Plan: No signs of infection. Her U/A was consistent with colonization however. (10) History of COPD Assessment/Plan: Stable without wheezing or airhunger, on home O2 at setting of 3L n.c. and scheduled nebs. (11) History of hypothyroidism Assessment/Plan: Continue home dose of thyroid replacement. (12) Chronic pain Assessment/Plan: Stable on home meds (13) History of anxiety Assessment/Plan: Stable on home meds - Current Meds Current Meds: Current Medications Generic Name Dose Route Start Last Admin Trade Name Freq PRN Reason Stop Dose Admin Acetaminophen 650 mg 05/30/19 16:36 06/01/19 02:56 Tylenol PO 650 mg Q4HR PRN Administration Pain 1 to 4 Hydrocodone Bitart/Acetaminophen 1 tab 05/31/19 08:42 06/02/19 00:18 [place] 5/325 PO 1 tab TID PRN Administration PAIN Albuterol/Ipratropium 3 ml 05/31/19 09:00 06/02/19 07:44 Duoneb INH 3 ml RTBID PERNELL Administration Levothyroxine Sodium 150 mcg 05/31/19 09:00 06/02/19 06:24 Synthroid PO 150 mcg QDAC PERNELL Administration Mineral Oil 1 applic 05/30/19 22:23 06/01/19 18:00 Cavilon TOP 1 applic PRN PRN Administration Skin Care Nystatin 1 applic 05/31/19 09:00 06/01/19 20:58 Mycostatin Cream TOP 1 applic BID PERNELL Administration Pantoprazole Sodium 40 mg 05/30/19 21:00 06/02/19 08:08 Protonix IVP 40 mg BID PERNELL Administration Sodium Chloride 10 ml 05/30/19 17:00 06/02/19 08:08 Normal Saline Flush 0.9% IVP 10 ml 0100,0900,1700 PERNELL Administration Sodium Polystyrene Sulfonate 15 gm 06/02/19 08:00 06/02/19 08:10 Kayexalate PO 15 gm 0800 PERNELL Administration - Lab Result Fish Bone Diagrams: 06/02/19 04:57 06/02/19 04:57 - Additional Planning My Orders: My Active Orders 06/02/19 08:00 Sod Polystyrene Sulf. [Kayexalate] 15 gm PO 0800 06/02/19 10:33 Chest 1 View X-Ray [XR] Stat 06/02/19 10:42 Transfer [Admit \ Transfer \ Status] [RC] .ONCE 06/02/19 10:44 Sodium Chloride 0.9% [Normal Saline 0.9%] 1,000 ml IV 30 mls/hr 06/02/19 12:00 POTASSIUM [CHEM] Q6H Insulin Aspart [NovoLOG] 1 - 5 unit SUBQ 0800,1200,1700,2100 06/02/19 18:00 POTASSIUM [CHEM] Q6H Sodium/Potassium/Mag Sulfates [Suprep Bowel Prep Kit] 177 ml PO 1800,0500 06/02/19 21:00 Metoprolol Succinate [Toprol Xl] 12.5 mg PO BID 06/03/19 00:00 POTASSIUM [CHEM] Q6H 06/03/19 05:00 CBC - COMP BLD CT W/AUTO DIFF [HEME] DAILYLAB MAGNESIUM [CHEM] DAILYLAB PHOSPHORUS [CHEM] DAILYLAB 06/04/19 05:00 MAGNESIUM [CHEM] DAILYLAB PHOSPHORUS [CHEM] DAILYLAB Subjective - Subjective Patient Reports: Feeling Better, Resting Comfortably Objective Vital Signs: Vital Signs - 24 hr 06/01/19 06/01/19 06/01/19 11:00 12:00 13:00 Temperature 36.6 C Heart Rate Heart Rate [ 74 80 77 Monitoring electrodes] Respiratory 12 20 14 Rate Blood Pressure [Left Brachial artery] Blood Pressure 135/62 H 135/62 H 132/56 H [Left Radial artery] O2 Saturation 100 100 100 06/01/19 06/01/19 06/01/19 14:00 14:25 15:00 Temperature 36.6 C 37.3 C Heart Rate 80 74 Heart Rate [ 72 71 Monitoring electrodes] Respiratory 12 20 18 Rate Blood Pressure [Left Brachial artery] Blood Pressure 98/60 98/60 [Left Radial artery] O2 Saturation 97 95 99 06/01/19 06/01/19 06/01/19 16:00 17:00 18:00 Temperature 36.9 C Heart Rate Heart Rate [ 83 79 73 Monitoring electrodes] Respiratory 18 16 13 Rate Blood Pressure [Left Brachial artery] Blood Pressure 165/71 H 117/73 141/65 H [Left Radial artery] O2 Saturation 98 97 100 06/01/19 06/01/19 06/01/19 19:00 19:20 19:44 Temperature 36.9 C Heart Rate 76 Heart Rate [ 74 82 Monitoring electrodes] Respiratory 18 18 11 L Rate Blood Pressure 151/66 H [Left Brachial artery] Blood Pressure [Left Radial artery] O2 Saturation 98 97 06/01/19 06/01/19 06/01/19 20:00 21:00 22:05 Temperature Heart Rate Heart Rate [ 83 80 79 Monitoring electrodes] Respiratory 15 16 14 Rate Blood Pressure 84/65 L 140/61 H 148/56 H [Left Brachial artery] Blood Pressure [Left Radial artery] O2 Saturation 97 97 96 06/01/19 06/02/19 06/02/19 23:10 00:00 01:00 Temperature 36.7 C Heart Rate Heart Rate [ 83 79 75 Monitoring electrodes] Respiratory 13 16 Rate Blood Pressure 111/97 H 125/58 L [Left Brachial artery] Blood Pressure [Left Radial artery] O2 Saturation 96 90 L 88 L 06/02/19 06/02/19 06/02/19 02:00 03:00 04:00 Temperature Heart Rate Heart Rate [ 66 63 65 Monitoring electrodes] Respiratory 13 13 15 Rate Blood Pressure 114/56 L 117/57 L 119/63 [Left Brachial artery] Blood Pressure [Left Radial artery] O2 Saturation 95 95 94 06/02/19 06/02/19 06/02/19 05:00 06:00 07:00 Temperature Heart Rate Heart Rate [ 67 64 63 Monitoring electrodes] Respiratory 12 13 15 Rate Blood Pressure 132/66 H 104/51 L 130/65 [Left Brachial artery] Blood Pressure [Left Radial artery] O2 Saturation 97 94 93 06/02/19 06/02/19 06/02/19 07:47 08:00 09:00 Temperature 37.0 C Heart Rate 76 Heart Rate [ 82 89 Monitoring electrodes] Respiratory 16 19 16 Rate Blood Pressure 137/62 H 159/77 H [Left Brachial artery] Blood Pressure [Left Radial artery] O2 Saturation 96 93 06/02/19 10:00 Temperature Heart Rate Heart Rate [ 73 Monitoring electrodes] Respiratory 16 Rate Blood Pressure 96/81 H [Left Brachial artery] Blood Pressure [Left Radial artery] O2 Saturation 97 Oxygen O2 Source [Without Activity] Nasal cannula O2 Source Nasal cannula I&O (Last 24 Hrs): Intake and Output Totals x24h 05/31/19 06/01/19 06/02/19 23:59 23:59 23:59 Intake Total 7788.576 6561.424 450 Output Total 5400 4200 1350 Balance 2388.576 2361.424 -900 General: Alert, Oriented x3 HEENT: Atraumatic, Mucous membr. moist/pink Neck: Supple Neuro: Non Focal Cardiovascular: Regular rate Respiratory: No respiratory distress, Rales Abdomen: Soft, Other (Obese with pannus) Extremities: No edema - Results Results: Laboratory Results WBC 4.6 x10^3/uL (4.8-10.8) L 06/02/19 04:57 RBC 2.55 10^6/uL (4.20-5.40) L 06/02/19 04:57 Hgb 7.4 g/dL (12.0-16.0) L 06/02/19 04:57 Hct 25.8 % (37.0-47.0) L 06/02/19 04:57 MCV 101.2 fL (81.0-99.0) H 06/02/19 04:57 MCH 29.0 pg (27.0-31.0) 06/02/19 04:57 MCHC 28.7 g/dL (32.0-36.0) L 06/02/19 04:57 RDW 16.8 % (12.0-15.0) H 06/02/19 04:57 Plt Count 220 10^3/uL (130-450) 06/02/19 04:57 MPV 10.5 fL (7.9-10.8) 06/02/19 04:57 Neut # (Auto) 2.7 10^3/uL (1.5-6.6) 06/02/19 04:57 Lymph # (Auto) 1.1 10^3/uL (1.5-3.5) L 06/02/19 04:57 [place] # (Auto) 0.5 10^3/uL (0.0-1.0) 06/02/19 04:57 Eos # (Auto) 0.2 10^3/uL (0.0-0.7) 06/02/19 04:57 Baso # (Auto) 0.0 10^3/uL (0.0-0.1) 06/02/19 04:57 Absolute Nucleated RBC 0.00 x10^3/uL 06/02/19 04:57 Nucleated RBC % 0.0 /100WBC 06/02/19 04:57 Manual Slide Review Indicated 06/02/19 04:57 WBC Morphology NORMAL APPEARANCE (NORMAL) 06/02/19 04:57 Platelet Estimate NORMAL (130-450,000) (NORMAL) 06/02/19 04:57 Platelet Morphology NORMAL APPEARANCE (NORMAL) 06/02/19 04:57 RBC Morph Micro Appear 2+ ANISOCYTOSIS (NORMAL) 1+ HYPOCHROMASIA (NORMAL) 2+ POIKILOCYTOSIS (NORMAL) 05/30/19 15:20 RBC Morph Micro Appear 2+ HYPOCHROMASIA (NORMAL) 05/31/19 04:15 RBC Morph Micro Appear 1+ HYPOCHROMASIA (NORMAL) 06/02/19 04:57 VBG pH 7.162 (7.31-7.41) L 05/31/19 04:15 Ionized Calcium 1.13 mmol/L (1.15-1.33) L 05/31/19 04:15 Sodium 144 mmol/L (135-145) 06/02/19 04:57 Potassium 5.0 mmol/L (3.5-5.0) 06/02/19 04:57 Chloride 110 mmol/L (101-111) 06/02/19 04:57 Carbon Dioxide 22 mmol/L (21-32) 06/02/19 04:57 Anion Gap 12.0 (6-13) 06/02/19 04:57 BUN 44 mg/dL (6-20) H 06/02/19 04:57 Creatinine 2.0 mg/dL (0.4-1.0) H 06/02/19 04:57 Estimated GFR (MDRD) 24 (>89) L 06/02/19 04:57 Glucose 131 mg/dL (70-100) H 06/02/19 04:57 POC Whole Bld Glucose 141 mg/dL (70 - 100) H 06/02/19 08:02 Glycated Hemoglobin 8.5 % (4.6-6.2) H 05/31/19 04:15 Estim Average Glucose 197 (70-100) H 05/31/19 04:15 Calcium 8.7 mg/dL (8.5-10.3) 06/02/19 04:57 Phosphorus 3.1 mg/dL (2.5-4.6) 06/02/19 04:57 Magnesium 2.0 mg/dL (1.7-2.8) 06/02/19 04:57 Total Bilirubin 0.3 mg/dL (0.2-1.0) 05/30/19 15:20 AST < 10 IU/L (10-42) L 05/30/19 15:20 ALT < 10 IU/L (10-60) L 05/30/19 15:20 Alkaline Phosphatase 70 IU/L (42-121) 05/30/19 15:20 Total Protein 7.1 g/dL (6.7-8.2) 05/30/19 15:20 Albumin 2.9 g/dL (3.2-5.5) L 06/01/19 04:20 Globulin 3.5 g/dL (2.1-4.2) 05/30/19 15:20 Albumin/Globulin Ratio 1.0 (1.0-2.2) 05/30/19 15:20 Lipase 22 U/L (22-51) 05/30/19 15:20 Nasal Screen MRSA (PCR) NEGATIVE (NEGATIVE) 05/30/19 17:45 Blood Type O POSITIVE 05/30/19 15:20 Antibody Screen NEGATIVE 05/30/19 15:20 Crossmatch IS Only See Detail 05/30/19 15:20 - Procedures Procedures: Procedures INSERTION OF INFUSION DEV INTO L SUBCLAV VEIN, PERC APPROACH (12/31/18) INSERTION OF INFUSION DEV INTO SUP VENA CAVA, PERC APPROACH (02/16/19) ULTRASONOGRAPHY OF RIGHT SUBCLAVIAN VEIN, GUIDANCE (12/31/18)
[2019-06-02] MEDS: SODIUM CHLORIDE 0.9% 1,000 ML IV SCH ×2 (11:13→21:14)
[2019-06-02] MEDS: INSULIN ASPART 300 UNIT/3 ML PEN SUBQ SCH ×3 (11:47→20:57)
--- NOTE | 2019-06-02 11:53 | XRAY Report ---
Reason: Rales, eval for CHF Procedure Date: 06/02/2019 Accession Number: [id number] / [id number] Procedure: XR - Chest 1 View X-Ray CPT Code: 44442 FULL RESULT: EXAM: CHEST RADIOGRAPHY EXAM DATE: 06/02/2019 11:08 AM. CLINICAL HISTORY: Rales, eval for CHF. COMPARISON: CHEST 1 VIEW 05/30/2019 4:54 PM. TECHNIQUE: 1 view. FINDINGS: Lungs/Pleura: Low lung volumes with similar mild bibasal opacities, atelectasis or infiltrate. Stable linear scarring/atelectasis at the mid lungs bilaterally. Mediastinum: Similar cardiomegaly, mild central pulmonary vascular congestion. Other: None. IMPRESSION: 1. Similar low lung volumes with mild bibasal opacity, atelectasis or infiltrate. 2. Cardiomegaly. Mild central pulmonary vascular congestion. RADIA
[2019-06-02] MEDS: NYSTATIN CREAM 15 GM TUBE TOP SCH ×2 (13:30→20:58)
[2019-06-02] MEDS: MIN OIL/DIMETHICON/COCONUT OIL 92 GM TUBE TOP PRN (13:30)
[2019-06-02] MEDS: SODIUM/POTASSIUM/MAG SULFATES 354 ML PREP KIT PO SCH (18:33)
[2019-06-03] MEDS: SODIUM CHLORIDE FLUSH 0.9% 10 ML SYRINGE IVP SCH ×3 (00:40→18:11)
[2019-06-03] MEDS: SODIUM/POTASSIUM/MAG SULFATES 354 ML PREP KIT PO SCH (04:57)
[2019-06-03 05:03] LABS: BASOPHILS % (AUTO) 0.4 %; EOSINOPHILS # (AUTO) 0.2 10^3/uL (0.0-0.7); EOSINOPHILS % (AUTO) 4.7 %; LYMPHOCYTES # (AUTO) 1.1 10^3/uL (1.5-3.5); LYMPHOCYTES % (AUTO) 24.3 %; MEAN CORPUSCULAR HEMOGLOBIN 29.3 pg (27.0-31.0); MEAN CORPUSCULAR HGB CONC 29.7 g/dL (32.0-36.0); MEAN CORPUSCULAR VOLUME 98.7 fL (81.0-99.0); MEAN PLATELET VOLUME 10.2 fL (7.9-10.8); MONOCYTES # (AUTO) 0.6 10^3/uL (0.0-1.0); MONOCYTES % (AUTO) 11.8 %; NEUTROPHILS # (AUTO) 2.7 10^3/uL (1.5-6.6); NEUTROPHILS % (AUTO) 57.9 %; PLT - PLATELET COUNT 209 10^3/uL (130-450); RED BLOOD COUNT 2.25 10^6/uL (4.20-5.40); RED CELL DISTRIBUTION WIDTH 16.6 % (12.0-15.0); WHITE BLOOD COUNT 4.7 x10^3/uL (4.8-10.8)
[2019-06-03 05:06] LABS: HGB - HEMOGLOBIN 6.6 g/dL (12.0-16.0)
[2019-06-03 05:15] LABS: MAGNESIUM 1.5 mg/dL (1.7-2.8); PHOSPHORUS 2.9 mg/dL (2.5-4.6)
[2019-06-03] MEDS ORDERED: MAGNESIUM SULFATE 2 GRAM 2 GM/50 ML BAG IV ONE (05:19)
[2019-06-03] MEDS: MIN OIL/DIMETHICON/COCONUT OIL 92 GM TUBE TOP PRN ×2 (05:45→20:30)
[2019-06-03] MEDS: LEVOTHYROXINE 75 MCG TABLET PO SCH (06:03)
[2019-06-03] MEDS: IPRATROPIUM/ALBUTEROL 3 ML NEB INH SCH ×2 (07:53→20:33)
[2019-06-03] MEDS: INSULIN ASPART 300 UNIT/3 ML PEN SUBQ SCH ×4 (08:09→21:11)
[2019-06-03] MEDS: METOPROLOL SUCCINATE 25 MG TABLET PO SCH ×2 (08:10→21:12)
[2019-06-03] MEDS: NYSTATIN CREAM 15 GM TUBE TOP SCH ×2 (08:10→20:30)
[2019-06-03] MEDS: PANTOPRAZOLE 40 MG VIAL IVP SCH ×2 (08:11→21:12)
[2019-06-03] MEDS: SODIUM POLYSTYRENE SULFONATE 15 GM/60 ML BOTTLE PO SCH (08:14)
[2019-06-03] MEDS ORDERED: FUROSEMIDE 20 MG/2 ML VIAL IVP PRN (10:05)
--- NOTE | 2019-06-03 10:14 | ANESTHESIA ---
Pre-Anesthesia VS, & Labs - Diagnosis Diagnosis Lower GI hemorrhage in the setting of a lady with multiple medical problems and acute Hyperkalemia on Xarelto. - Procedure colonoscopy Vital Signs: Temp Pulse Resp BP Pulse Ox 36.6 C 88 17 147/65 H 95 06/03/19 09:00 06/03/19 09:00 06/03/19 09:00 06/03/19 09:00 06/03/19 09:00 Height 5 ft 6 in Weight (kg) 115 kg Body Mass Index 40.9 - NPO >8 hours - Is Patient ?: No - Lab Results Current Lab Results: Laboratory Tests 06/03/19 07:18: POC Whole Bld Glucose 153 H 06/03/19 04:50: Phosphorus 2.9, Magnesium 1.5 L 06/03/19 04:50: WBC 4.7 L, RBC 2.25 L, Hgb 6.6 L*, Hct 22.2 L, MCV 98.7, MCH 29.3, MCHC 29.7 L, RDW 16.6 H, Plt Count 209, MPV 10.2, Neut # (Auto) 2.7, Lymph # (Auto) 1.1 L, [place] # (Auto) 0.6, Eos # (Auto) 0.2, Baso # (Auto) 0.0, Absolute Nucleated RBC 0.00, Nucleated RBC % 0.0 06/03/19 00:15: Potassium 4.5 06/02/19 20:53: POC Whole Bld Glucose 142 H 06/02/19 18:20: Potassium 4.8 06/02/19 16:16: POC Whole Bld Glucose 163 H 06/02/19 12:00: Potassium 5.0 06/02/19 11:46: POC Whole Bld Glucose 203 H 06/02/19 08:02: POC Whole Bld Glucose 141 H 06/02/19 04:57: WBC 4.6 L, RBC 2.55 L, Hgb 7.4 L, Hct 25.8 L, MCV 101.2 H, MCH 29.0, MCHC 28.7 L, RDW 16.8 H, Plt Count 220, MPV 10.5, Neut # (Auto) 2.7, Lymph # (Auto) 1.1 L, [place] # (Auto) 0.5, Eos # (Auto) 0.2, Baso # (Auto) 0.0, Absolute Nucleated RBC 0.00, Nucleated RBC % 0.0, Manual Slide Review Indicated, WBC Morphology NORMAL APPEARANCE, Platelet Estimate NORMAL (130-450,000), Platelet Morphology NORMAL APPEARANCE, RBC Morph Micro Appear 1+ HYPOCHROMASIA 06/02/19 04:57: Sodium 144, Potassium 5.0, Chloride 110, Carbon Dioxide 22, Anion Gap 12.0, BUN 44 H, Creatinine 2.0 H, Estimated GFR (MDRD) 24 L, Glucose 131 H, Calcium 8.7, Phosphorus 3.1, Magnesium 2.0 06/02/19 00:38: Potassium 4.7 06/01/19 21:00: POC Whole Bld Glucose 121 H 06/01/19 18:20: Potassium 4.6 06/01/19 18:04: POC Whole Bld Glucose 127 H 06/01/19 16:58: POC Whole Bld Glucose 100 06/01/19 14:57: POC Whole Bld Glucose 142 H 06/01/19 12:54: POC Whole Bld Glucose 175 H 06/01/19 12:08: Hgb 7.2 L, Hct 25.3 L 06/01/19 12:08: Potassium 5.0 06/01/19 10:56: POC Whole Bld Glucose 164 H 06/01/19 10:07: POC Whole Bld Glucose 176 H 06/01/19 09:21: POC Whole Bld Glucose 151 H 06/01/19 08:01: POC Whole Bld Glucose 203 H 06/01/19 07:18: POC Whole Bld Glucose 185 H 06/01/19 06:04: POC Whole Bld Glucose 221 H 06/01/19 05:04: POC Whole Bld Glucose 243 H 06/01/19 04:20: Phosphorus 3.5, Magnesium 1.6 L, Albumin 2.9 L 06/01/19 04:20: Sodium 143, Potassium 5.5 H, Chloride 112 H, Carbon Dioxide 21, Anion Gap 10.0, BUN 68 H, Creatinine 2.3 H, Estimated GFR (MDRD) 21 L, Glucose 266 H, Calcium 8.2 L 06/01/19 04:20: WBC 6.9, RBC 2.19 L, Hgb 6.5 L*, Hct 22.0 L, MCV 100.5 H, MCH 29.7, MCHC 29.5 L, RDW 16.4 H, Plt Count 200, MPV 10.5, Neut # (Auto) 5.2, Lymph # (Auto) 0.7 L, [place] # (Auto) 0.7, Eos # (Auto) 0.2, Baso # (Auto) 0.0, Absolute Nucleated RBC 0.00, Nucleated RBC % 0.0 06/01/19 04:03: POC Whole Bld Glucose 239 H 06/01/19 03:03: POC Whole Bld Glucose 245 H 06/01/19 02:15: Sodium 140, Potassium 5.1 H, Chloride 109, Carbon Dioxide 22, Anion Gap 9.0, BUN 70 H, Creatinine 2.4 H, Estimated GFR (MDRD) 20 L, Glucose 274 H, Calcium 8.0 L 06/01/19 00:20: Sodium 139, Potassium 4.9, Chloride 111, Carbon Dioxide 21, Anion Gap 7.0, BUN 68 H, Creatinine 2.4 H, Estimated GFR (MDRD) 20 L, Glucose 229 H, Calcium 7.7 L 06/01/19 00:05: POC Whole Bld Glucose 215 H 05/31/19 23:06: POC Whole Bld Glucose 112 H 05/31/19 21:58: POC Whole Bld Glucose 101 H 05/31/19 21:50: Potassium 5.5 H 05/31/19 21:12: POC Whole Bld Glucose 95 05/31/19 21:06: Potassium 5.3 H 05/31/19 20:15: Potassium 5.0 05/31/19 20:04: POC Whole Bld Glucose 119 H 05/31/19 18:58: POC Whole Bld Glucose 148 H 05/31/19 18:30: Potassium 5.4 H 05/31/19 18:12: POC Whole Bld Glucose 168 H 05/31/19 17:30: Potassium 5.9 H 05/31/19 17:09: POC Whole Bld Glucose 194 H 05/31/19 15:59: POC Whole Bld Glucose 192 H 05/31/19 15:38: Potassium 6.1 H* 05/31/19 15:38: Hgb 6.8 L*, Hct 23.5 L 05/31/19 15:34: Potassium 6.3 H* 05/31/19 15:03: POC Whole Bld Glucose 216 H 05/31/19 14:45: Potassium 6.1 H* 05/31/19 14:05: POC Whole Bld Glucose 255 H 05/31/19 13:40: Potassium 6.1 H* 05/31/19 13:02: POC Whole Bld Glucose 245 H 05/31/19 12:08: POC Whole Bld Glucose 195 H 05/31/19 11:00: Hgb 7.0 L*, Hct 24.7 L 05/31/19 11:00: Sodium 138, Potassium 6.6 H*, Chloride 109, Carbon Dioxide 22, Anion Gap 7.0, BUN 85 H*, Creatinine 2.8 H, Estimated GFR (MDRD) 16 L, Glucose 230 H, Calcium 8.1 L 05/31/19 07:52: POC Whole Bld Glucose 189 H 05/31/19 06:43: POC Whole Bld Glucose 237 H 05/31/19 04:15: VBG pH 7.162 L, Ionized Calcium 1.13 L 05/31/19 04:15: Phosphorus 4.8 H, Magnesium 1.5 L 05/31/19 04:15: Glycated Hemoglobin 8.5 H, Estim Average Glucose 197 H 05/31/19 04:15: Sodium 138, Potassium 6.0 H*, Chloride 108, Carbon Dioxide 21, Anion Gap 9.0, BUN 90 H*, Creatinine 2.9 H, Estimated GFR (MDRD) 16 L, Glucose 222 H, Calcium 8.0 L 05/31/19 04:15: WBC 6.8, RBC 2.32 L, Hgb 6.8 L*, Hct 23.5 L, MCV 101.3 H, MCH 29.3, MCHC 28.9 L, RDW 16.5 H, Plt Count 195, MPV 10.7, Neut # (Auto) 4.8, Lymph # (Auto) 1.0 L, [place] # (Auto) 0.7, Eos # (Auto) 0.2, Baso # (Auto) 0.0, Absolute Nucleated RBC 0.00, Nucleated RBC % 0.0, Manual Slide Review Indicated, WBC Morphology NORMAL APPEARANCE, Platelet Estimate NORMAL (130-450,000), Platelet Morphology NORMAL APPEARANCE, RBC Morph Micro Appear 2+ HYPOCHROMASIA 05/31/19 02:58: POC Whole Bld Glucose 220 H 05/31/19 01:13: POC Whole Bld Glucose 271 H 05/31/19 00:06: POC Whole Bld Glucose 258 H 05/30/19 23:37: POC Whole Bld Glucose 261 H 05/30/19 21:14: Sodium 137, Potassium 6.8 H*, Chloride 106, Carbon Dioxide 23, Anion Gap 8.0, BUN 92 H*, Creatinine 3.3 H, Estimated GFR (MDRD) 14 L, Glucose 216 H, Calcium 8.2 L 05/30/19 21:14: Hgb 7.6 L, Hct 26.1 L 05/30/19 18:01: POC Whole Bld Glucose 202 H 05/30/19 15:20: Sodium 138, Potassium 6.6 H*, Chloride 105, Carbon Dioxide 24, Anion Gap 9.0, BUN 99 H*, Creatinine 3.5 H, Estimated GFR (MDRD) 13 L, Glucose 262 H, Calcium 8.7, Total Bilirubin 0.3, AST < 10 L, ALT < 10 L, Alkaline Phosphatase 70, Total Protein 7.1, Albumin 3.6, Globulin 3.5, Albumin/Globulin Ratio 1.0, Lipase 22 05/30/19 15:20: WBC 8.2, RBC 2.77 L, Hgb 8.1 L, Hct 28.0 L, MCV 101.1 H, MCH 29.2, MCHC 28.9 L, RDW 16.4 H, Plt Count 226, MPV 10.2, Neut # (Auto) 5.6, Lymph # (Auto) 1.4 L, [place] # (Auto) 0.8, Eos # (Auto) 0.2, Baso # (Auto) 0.1, Absolute Nucleated RBC 0.00, Nucleated RBC % 0.0, Manual Slide Review Indicated, Platelet Estimate NORMAL (130-450,000), Platelet Morphology NORMAL APPEARANCE, RBC Morph Micro Appear 2+ POIKILOCYTOSIS 05/30/19 15:20: Blood Type O POSITIVE, Antibody Screen NEGATIVE, Crossmatch IS Only See Detail Fish Bones: 06/03/19 04:50 06/03/19 00:15 Home Medications and Allergies Home Medications: Ambulatory Orders Ferrous Sulfate 325 mg PO DAILYWM 05/30/19 Furosemide 40 mg PO BIDDIURETIC 05/30/19 Insulin 70/30 Human [NovoLIN] 20 unit SUBQ BID 05/30/19 Ipratropium/Albuterol Sulfate [Iprat-Albut 0.5-3(2.5) mg/3 ml] 3 ml INH BID 05/30/19 Levothyroxine Sodium [Synthroid] 150 mcg PO QDAC 05/30/19 Magnesium Hydroxide [Milk of Magnesia] 2,400 mg PO QPM PRN 05/30/19 Omeprazole 20 mg PO QDAC 05/30/19 Spironolactone [Aldactone] 25 mg PO DAILY 05/30/19 amLODIPine [Norvasc] 5 mg PO BID 05/30/19 Active Medications Acetaminophen (Tylenol) 650 mg PO Q4HR PRN PRN Reason: Pain 1 to 4 Last Admin: 06/01/19 02:56 Dose: 650 mg Hydrocodone Bitart/Acetaminophen ([place] 5/325) 1 tab PO TID PRN PRN Reason: PAIN Last Admin: 06/02/19 00:18 Dose: 1 tab Albuterol () 2.5 mg INH RTQ4H PRN PRN Reason: Wheezing Albuterol/Ipratropium (Duoneb) 3 ml INH RTBID PERNELL Last Admin: 06/03/19 07:53 Dose: 3 ml Amlodipine Besylate (Norvasc) 5 mg PO BID PERNELL Atorvastatin Calcium (Lipitor) 40 mg PO QPM PERNELL Furosemide (Lasix Inj 20mg Vial) 20 mg IVP ONCE PRN PRN Reason: NEEDED PER PROVIDER ORDERS Stop: 06/04/19 10:04 Sodium Chloride (Normal Saline 0.9%) 1,000 mls @ 30 mls/hr IV .[id number] [facility] Last Admin: 06/02/19 21:14 Dose: 30 mls/hr Insulin Aspart (Novolog) 1 - 5 unit SUBQ 0800,1200,1700,2100 [facility]; Protocol Last Admin: 06/03/19 08:09 Dose: 1 unit Levothyroxine Sodium (Synthroid) 150 mcg PO QDAC [facility] Last Admin: 06/03/19 06:03 Dose: 150 mcg Metoprolol Succinate (Toprol Xl) 12.5 mg PO BID [facility] Last Admin: 06/03/19 08:10 Dose: 12.5 mg Mineral Oil (Cavilon) 1 applic TOP PRN PRN PRN Reason: Skin Care Last Admin: 06/03/19 05:45 Dose: 1 applic Nystatin (Mycostatin Cream) 1 applic TOP BID [facility] Last Admin: 06/03/19 08:10 Dose: 1 applic Pantoprazole Sodium (Protonix) 40 mg IVP BID [facility] Last Admin: 06/03/19 08:11 Dose: 40 mg Prochlorperazine Edisylate (Compazine Inj) 10 mg IVP Q6HR PRN PRN Reason: Nausea / Vomiting Sodium Chloride (Normal Saline Flush 0.9%) 10 ml IVP 0100,0900,1700 [facility] Last Admin: 06/03/19 08:11 Dose: 10 ml Sodium Chloride (Normal Saline Flush 0.9%) 10 ml IVP PRN PRN PRN Reason: NEEDED PER PROVIDER ORDERS Sodium Polystyrene Sulfonate (Kayexalate) 15 gm PO 0800 [facility] Last Admin: 06/03/19 08:14 Dose: 15 gm Spironolactone (Aldactone) 25 mg PO DAILY [facility] Atorvastatin Calcium 40 mg PO QPM 11/13/17 HYDROcod/ACETAM 5/325 [[place] 5/325] 1 tab PO TID PRN 11/13/17 Bisacodyl [Dulcolax] 5 mg PO BID PRN 11/05/18 Rivaroxaban [Xarelto] 15 mg PO QDDINNER 11/05/18 Diphenoxylate HCl/Atropine [Diphenoxylate-Atrop 2.5-0.025] 1 tab PO QID PRN 02/17/19 Nystatin 1 applic TOP BID 02/17/19 Saccharomyces Boulardii [Florastor] 250 mg PO DAILYWM 02/17/19 Ferrous Sulfate 325 mg PO DAILYWM 05/30/19 Furosemide 40 mg PO BIDDIURETIC 05/30/19 Insulin 70/30 Human [NovoLIN] 20 unit SUBQ BID 05/30/19 Ipratropium/Albuterol Sulfate [Iprat-Albut 0.5-3(2.5) mg/3 ml] 3 ml INH BID 05/30/19 Levothyroxine Sodium [Synthroid] 150 mcg PO QDAC 05/30/19 Magnesium Hydroxide [Milk of Magnesia] 2,400 mg PO QPM PRN 05/30/19 Omeprazole 20 mg PO QDAC 05/30/19 Spironolactone [Aldactone] 25 mg PO DAILY 05/30/19 amLODIPine [Norvasc] 5 mg PO BID 05/30/19 Allergies/Adverse Reactions: Allergies Allergy/AdvReac Type Severity Reaction Status Date / Time No Known Drug Allergies Allergy Verified 05/30/19 14:49 Anes History & Medical History - Anesthetic History Anesthesia Complications: reports: No previous complications - Medical History Cardiovascular: reports: Congestive heart failure, Hypertension, Coronary artery disease, [place] Pulmonary: reports: COPD, Emphysema, Shortness of breath, CPAP use, Other (home O2 for last 2 yrs, 3l) Gastrointestinal: reports: GERD, Chronic constipation, Hemorrhoids Urinary: reports: Incontinence, Indwelling catheter Neuro: reports: Migraines Musculoskeletal: reports: Osteoarthritis, Chronic back pain Endocrine/Autoimmune: reports: Type 2 diabetes, HyPOthyroidism Blood Disorders: reports: None Skin: reports: Other Smoking Status: Former smoker - Surgical History General: Cholecystectomy Gynecologic: Hysterectomy Plan Anesthesia Type: MAC Consent for Procedure(s) Verified and Reviewed: Yes Code Status: Attempt Resuscitation ASA classification: 4-Incapacitating disease Is this case an emergency?: No
[2019-06-03 11:04] LABS: CALCIUM 8.6 mg/dL (8.5-10.3); CREATININE 1.7 mg/dL (0.4-1.0)
[2019-06-03] MEDS ORDERED: SPIRONOLACTONE 25 MG TABLET PO SCH (13:00)
--- NOTE | 2019-06-03 14:32 | PROVIDER PROGRESS NOTE ---
Subjective - Prog Note Date Prog Note Date: 06/03/19 Prog Note Time: 14:30 - Subjective Pt reports feeling: No change Subjective: Aurora is sitting in a chair at the bedside accompanied by her daughter. She reports that she feels "ok". She doesn't feel she is "cleaned out" but is anxious for regular food. She denies any further bleeding and denies any new source of discomfort. She denies any anal or perianal pain. Transfusion started just after 1 PM and is continuing slowly. Objective - Vital Signs/Intake & Output Reviewed Vital Signs: Yes Vital Signs: Vital Signs x48h Temp Pulse Pulse Resp BP BP BP 06/03/19 13:11 36.8 C 71 18 135/79 H 06/03/19 13:00 37.1 C 68 15 156/68 H 06/03/19 12:55 37.1 C 68 15 156/68 H 06/03/19 09:00 36.6 C 88 17 147/65 H 06/03/19 07:55 83 20 Pulse Ox 06/03/19 13:11 06/03/19 13:00 100 06/03/19 12:55 06/03/19 09:00 95 06/03/19 07:55 Intake & Output: Intake & Output 05/31/19 06/01/19 06/02/19 06/03/19 23:59 23:59 23:59 23:59 Intake Total 7788.576 6561.424 4950.5 1070 Output Total 5400 4200 2100 2275 Balance 2388.576 2361.424 2850.5 -1205 - Objective General Appearance: positive: No acute distress Eyes Bilateral: positive: Normal inspection, Conjunctivae nml, No scleral icterus Abdomen: positive: Non-tender, Nml bowel sounds Skin: positive: Pallor Neurologic/Psychiatric: positive: Oriented x3, CN's nml (2-12) - Lab Results Fish Bones: 06/03/19 04:50 06/03/19 10:44 Other Labs: Lab Results x24hrs 06/03/19 06/03/19 06/03/19 Range/Units 11:16 10:44 10:44 WBC (4.8-10.8) x10^3/uL RBC (4.20-5.40) 10^6/uL Hgb (12.0-16.0) g/dL Hct (37.0-47.0) % MCV (81.0-99.0) fL MCH (27.0-31.0) pg MCHC (32.0-36.0) g/dL RDW (12.0-15.0) % Plt Count (130-450) 10^3/uL MPV (7.9-10.8) fL Neut # (Auto) (1.5-6.6) 10^3/uL Lymph # (Auto) (1.5-3.5) 10^3/uL [place] # (Auto) (0.0-1.0) 10^3/uL Eos # (Auto) (0.0-0.7) 10^3/uL Baso # (Auto) (0.0-0.1) 10^3/uL Absolute Nucleated RBC x10^3/uL Nucleated RBC % /100WBC Sodium 141 (135-145) mmol/L Potassium 4.4 (3.5-5.0) mmol/L Chloride 106 (101-111) mmol/L Carbon Dioxide 24 (21-32) mmol/L Anion Gap 11.0 (6-13) BUN 29 H (6-20) mg/dL Creatinine 1.7 H (0.4-1.0) mg/dL Estimated GFR (MDRD) 29 L (>89) Glucose 199 H (70-100) mg/dL POC Whole Bld Glucose 173 H (70 - 100) mg/dL Calcium 8.6 (8.5-10.3) mg/dL Phosphorus (2.5-4.6) mg/dL Magnesium (1.7-2.8) mg/dL Blood Type O POSITIVE Antibody Screen NEGATIVE Crossmatch IS Only See Detail 06/03/19 06/03/19 06/03/19 Range/Units 07:18 04:50 04:50 WBC 4.7 L (4.8-10.8) x10^3/uL RBC 2.25 L (4.20-5.40) 10^6/uL Hgb 6.6 L* (12.0-16.0) g/dL Hct 22.2 L (37.0-47.0) % MCV 98.7 (81.0-99.0) fL MCH 29.3 (27.0-31.0) pg MCHC 29.7 L (32.0-36.0) g/dL RDW 16.6 H (12.0-15.0) % Plt Count 209 (130-450) 10^3/uL MPV 10.2 (7.9-10.8) fL Neut # (Auto) 2.7 (1.5-6.6) 10^3/uL Lymph # (Auto) 1.1 L (1.5-3.5) 10^3/uL [place] # (Auto) 0.6 (0.0-1.0) 10^3/uL Eos # (Auto) 0.2 (0.0-0.7) 10^3/uL Baso # (Auto) 0.0 (0.0-0.1) 10^3/uL Absolute Nucleated RBC 0.00 x10^3/uL Nucleated RBC % 0.0 /100WBC Sodium (135-145) mmol/L Potassium (3.5-5.0) mmol/L Chloride (101-111) mmol/L Carbon Dioxide (21-32) mmol/L Anion Gap (6-13) BUN (6-20) mg/dL Creatinine (0.4-1.0) mg/dL Estimated GFR (MDRD) (>89) Glucose (70-100) mg/dL POC Whole Bld Glucose 153 H (70 - 100) mg/dL Calcium (8.5-10.3) mg/dL Phosphorus 2.9 (2.5-4.6) mg/dL Magnesium 1.5 L (1.7-2.8) mg/dL Blood Type Antibody Screen Crossmatch IS Only 06/03/19 06/02/19 06/02/19 Range/Units 00:15 20:53 18:20 WBC (4.8-10.8) x10^3/uL RBC (4.20-5.40) 10^6/uL Hgb (12.0-16.0) g/dL Hct (37.0-47.0) % MCV (81.0-99.0) fL MCH (27.0-31.0) pg MCHC (32.0-36.0) g/dL RDW (12.0-15.0) % Plt Count (130-450) 10^3/uL MPV (7.9-10.8) fL Neut # (Auto) (1.5-6.6) 10^3/uL Lymph # (Auto) (1.5-3.5) 10^3/uL [place] # (Auto) (0.0-1.0) 10^3/uL Eos # (Auto) (0.0-0.7) 10^3/uL Baso # (Auto) (0.0-0.1) 10^3/uL Absolute Nucleated RBC x10^3/uL Nucleated RBC % /100WBC Sodium (135-145) mmol/L Potassium 4.5 4.8 (3.5-5.0) mmol/L Chloride (101-111) mmol/L Carbon Dioxide (21-32) mmol/L Anion Gap (6-13) BUN (6-20) mg/dL Creatinine (0.4-1.0) mg/dL Estimated GFR (MDRD) (>89) Glucose (70-100) mg/dL POC Whole Bld Glucose 142 H (70 - 100) mg/dL Calcium (8.5-10.3) mg/dL Phosphorus (2.5-4.6) mg/dL Magnesium (1.7-2.8) mg/dL Blood Type Antibody Screen Crossmatch IS Only 06/02/19 05/30/19 Range/Units 16:16 15:20 WBC (4.8-10.8) x10^3/uL RBC (4.20-5.40) 10^6/uL Hgb (12.0-16.0) g/dL Hct (37.0-47.0) % MCV (81.0-99.0) fL MCH (27.0-31.0) pg MCHC (32.0-36.0) g/dL RDW (12.0-15.0) % Plt Count (130-450) 10^3/uL MPV (7.9-10.8) fL Neut # (Auto) (1.5-6.6) 10^3/uL Lymph # (Auto) (1.5-3.5) 10^3/uL [place] # (Auto) (0.0-1.0) 10^3/uL Eos # (Auto) (0.0-0.7) 10^3/uL Baso # (Auto) (0.0-0.1) 10^3/uL Absolute Nucleated RBC x10^3/uL Nucleated RBC % /100WBC Sodium (135-145) mmol/L Potassium (3.5-5.0) mmol/L Chloride (101-111) mmol/L Carbon Dioxide (21-32) mmol/L Anion Gap (6-13) BUN (6-20) mg/dL Creatinine (0.4-1.0) mg/dL Estimated GFR (MDRD) (>89) Glucose (70-100) mg/dL POC Whole Bld Glucose 163 H (70 - 100) mg/dL Calcium (8.5-10.3) mg/dL Phosphorus (2.5-4.6) mg/dL Magnesium (1.7-2.8) mg/dL Blood Type Antibody Screen Crossmatch IS Only See Detail Assessment/Plan - Problem List (1) Anemia due to gastrointestinal blood loss Impression: Chronically ill 74 year old lady with acute blood loss anemia superimposed on chronic anemia. Transfusion has started. As the blood will need to run for another 2-3 hours and then await a post transfusion H/H, we will delay the procedure until the AM. I have rescheduled her for 729. It is imparative that this anemia is improved prior to the procedure so that we are as prepared as possible to deal with any complications that may arise.
--- NOTE | 2019-06-03 15:42 | PROVIDER PROGRESS NOTE ---
Assessment/Plan - Problem List (1) Anemia due to gastrointestinal blood loss Assessment/Plan: Hgb is 6.6 this a.m. One U PRBCs ordered. The previously typed and crossmatched units, that were on hold, yesterday, so she needed to be re-crossmatched and the blood transfusion was started at 1pm. Monitor H/H q12h. (2) Rectal bleeding Assessment/Plan: Awaiting the colonoscopy, which was to be done yesterday, but that was a holiday () and she was not put on the procedure schedule, then it was determined that stool was not clear yet and she needed SuPrep given last night and at 0500 this am. Then scheduled for colonoscopy today but it was felt to be high risk by Anesthesia due to marked anemia (Hgb 6.6 today) on top of her comorbid conditions and ASA 4 (in Anesthesia pre-op note). The plan is to finish the blood transfusion, recheck CBC. I will resume clear diet for today. Colonoscopy is first case of the day tomorrow. I asked Patient Advocate to see the patient, since she is upset for being rescheduled twice (off of Sun, and off 's schedule). (3) Acute on chronic kidney failure Assessment/Plan: Improving daily with creat 1.7 today, and her baseline is 1.5 - 2.0 (4) Chronic diastolic heart failure Assessment/Plan: Lasix iv x1 will be ordered to be dosed after the 1U of PRBCs. Her other meds are being restarted, as BP improved in the last 2 days. (5) Decubitus ulcer, buttock Assessment/Plan: Topical care and turn and reposition ordered. (6) Type 2 diabetes mellitus with hyperglycemia, with long-term current use of insulin Assessment/Plan: Continue cc diet when she is on a diet, ss Insulin. (7) Chronic indwelling Blanco catheter Assessment/Plan: Stable (8) History of COPD Assessment/Plan: Stable on hronic O2 and scheduled nebs (9) History of hypothyroidism Assessment/Plan: On her home meds (10) Chronic pain Assessment/Plan: No complaints on current regimen (11) History of anxiety Assessment/Plan: Stable on her home meds (12) Hypotension Assessment/Plan: Resolved (13) Hyperkalemia Assessment/Plan: Stabilized Continue daily Kayexelate Monitor serum K daily - Current Meds Current Meds: Current Medications Generic Name Dose Route Start Last Admin Trade Name Freq PRN Reason Stop Dose Admin Acetaminophen 650 mg 05/30/19 16:36 06/01/19 02:56 Tylenol PO 650 mg Q4HR PRN Administration Pain 1 to 4 Hydrocodone Bitart/Acetaminophen 1 tab 05/31/19 08:42 06/02/19 00:18 [place] 5/325 PO 1 tab TID PRN Administration PAIN Albuterol/Ipratropium 3 ml 05/31/19 09:00 06/03/19 07:53 Duoneb INH 3 ml RTBID PERNELL Administration Sodium Chloride 1,000 mls @ 30 mls/hr 06/02/19 10:44 06/02/19 21:14 Normal Saline 0.9% IV 30 mls/hr .[id number] PERNELL Administration Insulin Aspart 1 - 5 unit 06/02/19 12:00 06/03/19 13:10 Novolog SUBQ 1 unit 0800,1200,1700,2100 PERNELL Administration Protocol Levothyroxine Sodium 150 mcg 05/31/19 09:00 06/03/19 06:03 Synthroid PO 150 mcg QDAC PERNELL Administration Metoprolol Succinate 12.5 mg 06/02/19 21:00 06/03/19 08:10 Toprol Xl PO 12.5 mg BID PERNELL Administration Mineral Oil 1 applic 05/30/19 22:23 06/03/19 05:45 Cavilon TOP 1 applic PRN PRN Administration Skin Care Nystatin 1 applic 05/31/19 09:00 06/03/19 08:10 Mycostatin Cream TOP 1 applic BID PERNELL Administration Pantoprazole Sodium 40 mg 05/30/19 21:00 06/03/19 08:11 Protonix IVP 40 mg BID PERNELL Administration Sodium Chloride 10 ml 05/30/19 17:00 06/03/19 08:11 Normal Saline Flush 0.9% IVP 10 ml 0100,0900,1700 PERNELL Administration Sodium Polystyrene Sulfonate 15 gm 06/02/19 08:00 06/03/19 08:14 Kayexalate PO 15 gm 0800 PERNELL Administration Spironolactone 25 mg 06/03/19 13:00 06/03/19 13:14 Aldactone PO 25 mg DAILY PERNELL Administration - Lab Result Fish Bone Diagrams: 06/03/19 04:50 06/03/19 10:44 - Additional Planning My Orders: My Active Orders 06/02/19 21:00 Metoprolol Succinate [Toprol Xl] 12.5 mg PO BID 06/03/19 08:59 DIET [NPO] [DIET] 06/03/19 10:05 Transfuse RBCs Leukoreduced [RC] .ONCE FUROSEMIDE INJ 20mg VIAL [LASIX INJ 20mg VIAL] 20 mg IVP ONCE PRN 06/03/19 10:44 RBC, LEUKOREDUCED Routine TYPE AND SCREEN Routine 06/03/19 13:00 Spironolactone [Aldactone] 25 mg PO DAILY 06/03/19 15:30 HEMOGLOBIN AND HEMATOCRIT [HEME] Timed 06/03/19 21:00 Atorvastatin [Lipitor] 40 mg PO QPM amLODIPine [Norvasc] 5 mg PO BID 06/04/19 05:00 BMP - BASIC METABOLIC PANEL [CHEM] Routine CBC - COMP BLD CT W/AUTO DIFF [HEME] Routine MAGNESIUM [CHEM] DAILYLAB PHOSPHORUS [CHEM] DAILYLAB Subjective - Subjective Patient Reports: Feeling Better, Resting Comfortably Objective Vital Signs: Vital Signs - 24 hr 06/02/19 06/02/19 06/02/19 16:18 19:36 20:03 Temperature 36.8 C 36.9 C Heart Rate 76 Heart Rate [ 71 88 Monitoring electrodes] Respiratory 20 17 18 Rate Blood Pressure Blood Pressure 145/69 H [Left Brachial artery] Blood Pressure 157/83 H [Right Brachial artery] O2 Saturation 97 98 06/02/19 06/03/19 06/03/19 21:00 01:00 04:53 Temperature 37.0 C Heart Rate Heart Rate [ 81 72 81 Monitoring electrodes] Respiratory 12 13 15 Rate Blood Pressure Blood Pressure 145/76 H [Left Brachial artery] Blood Pressure 131/69 H [Right Brachial artery] O2 Saturation 96 06/03/19 06/03/19 06/03/19 07:55 09:00 12:55 Temperature 36.6 C 37.1 C Heart Rate 83 68 Heart Rate [ 88 Monitoring electrodes] Respiratory 20 17 15 Rate Blood Pressure 156/68 H Blood Pressure [Left Brachial artery] Blood Pressure 147/65 H [Right Brachial artery] O2 Saturation 95 06/03/19 06/03/19 13:00 13:11 Temperature 37.1 C 36.8 C Heart Rate 71 Heart Rate [ 68 Monitoring electrodes] Respiratory 15 18 Rate Blood Pressure 135/79 H Blood Pressure 156/68 H [Left Brachial artery] Blood Pressure [Right Brachial artery] O2 Saturation 100 Oxygen O2 Source [Without Activity] Nasal cannula O2 Source Nasal cannula I&O (Last 24 Hrs): Intake and Output Totals x24h 06/01/19 06/02/19 06/03/19 23:59 23:59 23:59 Intake Total 6561.424 4950.5 1070 Output Total 4200 2100 2675 Balance 2361.424 2850.5 -1605 General: Alert, Oriented x3 HEENT: Mucous membr. moist/pink, Other (Pale) Neck: Supple, No JVD Neuro: Alert, Non Focal Cardiovascular: Regular rate, No murmurs Respiratory: No respiratory distress Abdomen: Soft, No tenderness Extremities: No edema - Results Results: Laboratory Results WBC 4.7 x10^3/uL (4.8-10.8) L 06/03/19 04:50 RBC 2.25 10^6/uL (4.20-5.40) L 06/03/19 04:50 Hgb 6.6 g/dL (12.0-16.0) L* 06/03/19 04:50 Hct 22.2 % (37.0-47.0) L 06/03/19 04:50 MCV 98.7 fL (81.0-99.0) 06/03/19 04:50 MCH 29.3 pg (27.0-31.0) 06/03/19 04:50 MCHC 29.7 g/dL (32.0-36.0) L 06/03/19 04:50 RDW 16.6 % (12.0-15.0) H 06/03/19 04:50 Plt Count 209 10^3/uL (130-450) 06/03/19 04:50 MPV 10.2 fL (7.9-10.8) 06/03/19 04:50 Neut # (Auto) 2.7 10^3/uL (1.5-6.6) 06/03/19 04:50 Lymph # (Auto) 1.1 10^3/uL (1.5-3.5) L 06/03/19 04:50 [place] # (Auto) 0.6 10^3/uL (0.0-1.0) 06/03/19 04:50 Eos # (Auto) 0.2 10^3/uL (0.0-0.7) 06/03/19 04:50 Baso # (Auto) 0.0 10^3/uL (0.0-0.1) 06/03/19 04:50 Absolute Nucleated RBC 0.00 x10^3/uL 06/03/19 04:50 Nucleated RBC % 0.0 /100WBC 06/03/19 04:50 Manual Slide Review Indicated 06/02/19 04:57 WBC Morphology NORMAL APPEARANCE (NORMAL) 06/02/19 04:57 Platelet Estimate NORMAL (130-450,000) (NORMAL) 06/02/19 04:57 Platelet Morphology NORMAL APPEARANCE (NORMAL) 06/02/19 04:57 RBC Morph Micro Appear 2+ ANISOCYTOSIS (NORMAL) 1+ HYPOCHROMASIA (NORMAL) 2+ POIKILOCYTOSIS (NORMAL) 05/30/19 15:20 RBC Morph Micro Appear 2+ HYPOCHROMASIA (NORMAL) 05/31/19 04:15 RBC Morph Micro Appear 1+ HYPOCHROMASIA (NORMAL) 06/02/19 04:57 VBG pH 7.162 (7.31-7.41) L 05/31/19 04:15 Ionized Calcium 1.13 mmol/L (1.15-1.33) L 05/31/19 04:15 Sodium 141 mmol/L (135-145) 06/03/19 10:44 Potassium 4.4 mmol/L (3.5-5.0) 06/03/19 10:44 Chloride 106 mmol/L (101-111) 06/03/19 10:44 Carbon Dioxide 24 mmol/L (21-32) 06/03/19 10:44 Anion Gap 11.0 (6-13) 06/03/19 10:44 BUN 29 mg/dL (6-20) H 06/03/19 10:44 Creatinine 1.7 mg/dL (0.4-1.0) H 06/03/19 10:44 Estimated GFR (MDRD) 29 (>89) L 06/03/19 10:44 Glucose 199 mg/dL (70-100) H 06/03/19 10:44 POC Whole Bld Glucose 173 mg/dL (70 - 100) H 06/03/19 11:16 Glycated Hemoglobin 8.5 % (4.6-6.2) H 05/31/19 04:15 Estim Average Glucose 197 (70-100) H 05/31/19 04:15 Calcium 8.6 mg/dL (8.5-10.3) 06/03/19 10:44 Phosphorus 2.9 mg/dL (2.5-4.6) 06/03/19 04:50 Magnesium 1.5 mg/dL (1.7-2.8) L 06/03/19 04:50 Total Bilirubin 0.3 mg/dL (0.2-1.0) 05/30/19 15:20 AST < 10 IU/L (10-42) L 05/30/19 15:20 ALT < 10 IU/L (10-60) L 05/30/19 15:20 Alkaline Phosphatase 70 IU/L (42-121) 05/30/19 15:20 Total Protein 7.1 g/dL (6.7-8.2) 05/30/19 15:20 Albumin 2.9 g/dL (3.2-5.5) L 06/01/19 04:20 Globulin 3.5 g/dL (2.1-4.2) 05/30/19 15:20 Albumin/Globulin Ratio 1.0 (1.0-2.2) 05/30/19 15:20 Lipase 22 U/L (22-51) 05/30/19 15:20 Nasal Screen MRSA (PCR) NEGATIVE (NEGATIVE) 05/30/19 17:45 Blood Type O POSITIVE 06/03/19 10:44 Antibody Screen NEGATIVE 06/03/19 10:44 Crossmatch IS Only See Detail 06/03/19 10:44 - Procedures Procedures: Procedures INSERTION OF INFUSION DEV INTO L SUBCLAV VEIN, PERC APPROACH (12/31/18) INSERTION OF INFUSION DEV INTO SUP VENA CAVA, PERC APPROACH (02/16/19) ULTRASONOGRAPHY OF RIGHT SUBCLAVIAN VEIN, GUIDANCE (12/31/18)
[2019-06-03] MEDS: SODIUM CHLORIDE FLUSH 0.9% 10 ML SYRINGE IVP PRN (15:57)
[2019-06-03 16:37] LABS: HGB - HEMOGLOBIN 8.4 g/dL (12.0-16.0)
[2019-06-03] MEDS: amLODIPine 5 MG TABLET PO SCH (21:12)
[2019-06-03] MEDS: ATORVASTATIN 40 MG TABLET PO SCH (21:12)
[2019-06-04] MEDS: SODIUM CHLORIDE FLUSH 0.9% 10 ML SYRINGE IVP SCH ×4 (02:01→20:43)
[2019-06-04 05:23] LABS: BASOPHILS % (AUTO) 0.4 %; EOSINOPHILS # (AUTO) 0.2 10^3/uL (0.0-0.7); EOSINOPHILS % (AUTO) 3.2 %; HGB - HEMOGLOBIN 8.2 g/dL (12.0-16.0); LYMPHOCYTES # (AUTO) 1.4 10^3/uL (1.5-3.5); MEAN CORPUSCULAR HEMOGLOBIN 29.1 pg (27.0-31.0); MEAN CORPUSCULAR VOLUME 96.8 fL (81.0-99.0); MEAN PLATELET VOLUME 9.8 fL (7.9-10.8); MONOCYTES # (AUTO) 0.6 10^3/uL (0.0-1.0); MONOCYTES % (AUTO) 10.5 %; NEUTROPHILS # (AUTO) 3.4 10^3/uL (1.5-6.6); NEUTROPHILS % (AUTO) 59.8 %; PLT - PLATELET COUNT 205 10^3/uL (130-450); RED BLOOD COUNT 2.82 10^6/uL (4.20-5.40); WHITE BLOOD COUNT 5.6 x10^3/uL (4.8-10.8)
[2019-06-04 05:37] LABS: CALCIUM 8.8 mg/dL (8.5-10.3); CREATININE 1.8 mg/dL (0.4-1.0); MAGNESIUM 1.6 mg/dL (1.7-2.8); PHOSPHORUS 2.9 mg/dL (2.5-4.6)
[2019-06-04] MEDS ORDERED: MAGNESIUM SULFATE 2 GRAM 2 GM/50 ML BAG IV ONE ×3 (06:37→14:00)
[2019-06-04] MEDS: IPRATROPIUM/ALBUTEROL 3 ML NEB INH SCH ×2 (07:30→19:39)
[2019-06-04] MEDS ORDERED: INSULIN REGULAR HUMAN 100 UNIT/1 ML 10 ML MDV ONE (07:44)
[2019-06-04] MEDS ORDERED: INSULIN REGULAR HUMAN 100 UNIT/1 ML 10 ML MDV SUBQ SCH (08:00)
--- NOTE | 2019-06-04 08:21 | PROVIDER PROGRESS NOTE ---
Assessment/Plan - Problem List (1) Accelerated idioventricular rhythm Assessment/Plan: The patient had multiple runs of sustained slow VTach, at rates of 75. She was asymptomatic with them. BP was stable during those episodes. An EKG showed no acute changes. Another EKG caught the rhythm and it is documented as accelerated ideoventricular rhythm STAT labs were done and showed: Mg of 2.0, normal K, Ca and hs-troponin. Her colonoscopy scheduled for this morning was cancelled. Plan return to ICU status with electrolyte protocol. Will correct Mg to > 2.0 and do serial troponin checks to R/O acute IL. Another cause could be complete heart block and this would be her escape rhythm. Will therefore decrease any HR-slowing meds. No DCh today. I discussed this plan with patient and daughter was at bedside, and they are agreeable. (2) Anemia due to gastrointestinal blood loss Assessment/Plan: Hgb is stable after the blood transfusion given today. She reports that there is still "dripping" of blood from rectum and she does want to undergo the colonoscopy. (3) Rectal bleeding Assessment/Plan: As above (4) Acute on chronic kidney failure Assessment/Plan: After a transfusion, she got Lasix 20 mgiv x1 and her BUN/creat farshad. Will restart gentle iv hydration and stop the Spironolactone. Follow BMP daily. (5) Chronic diastolic heart failure Assessment/Plan: She remains comfortable on her stable home 3L of O2 per n.c. The CXR did show increasing edema, however. (6) Decubitus ulcer, buttock Assessment/Plan: Topical care and turn and reposition (7) Type 2 diabetes mellitus with hyperglycemia, with long-term current use of insulin Assessment/Plan: Continue cc diet and ss Insulin. Will allow a soft diet, since the colonoscopy will be cancelled (8) Chronic indwelling Blanco catheter Assessment/Plan: Chronic (9) History of COPD Assessment/Plan: No exacerbation. Cont nebs/inlahalers and O2 by n.c. 23/04 (10) History of hypothyroidism Assessment/Plan: Pt on home thyroid dose (11) Chronic pain Assessment/Plan: Stable with current meds and management (12) History of anxiety Assessment/Plan: Stable on her home meds. (13) Hyperkalemia Assessment/Plan: Resolved - Current Meds Current Meds: Current Medications Generic Name Dose Route Start Last Admin Trade Name Freq PRN Reason Stop Dose Admin Acetaminophen 650 mg 05/30/19 16:36 06/01/19 02:56 Tylenol PO 650 mg Q4HR PRN Administration Pain 1 to 4 Hydrocodone Bitart/Acetaminophen 1 tab 05/31/19 08:42 06/02/19 00:18 [place] 5/325 PO 1 tab TID PRN Administration PAIN Albuterol/Ipratropium 3 ml 05/31/19 09:00 06/04/19 07:30 Duoneb INH 3 ml RTBID PERNELL Administration Amlodipine Besylate 5 mg 06/03/19 21:00 06/03/19 21:12 Norvasc PO 5 mg BID PERNELL Administration Atorvastatin Calcium 40 mg 06/03/19 21:00 06/03/19 21:12 Lipitor PO 40 mg QPM PERNELL Administration Furosemide 20 mg 06/03/19 10:05 06/03/19 15:56 Lasix Inj 20mg Vial IVP 06/04/19 10:04 20 mg ONCE PRN Administration NEEDED PER PROVIDER ORDERS Levothyroxine Sodium 150 mcg 05/31/19 09:00 06/03/19 06:03 Synthroid PO 150 mcg QDAC PERNELL Administration Metoprolol Succinate 12.5 mg 06/02/19 21:00 06/03/19 21:12 Toprol Xl PO 12.5 mg BID PERNELL Administration Mineral Oil 1 applic 05/30/19 22:23 06/03/19 20:30 Cavilon TOP 1 applic PRN PRN Administration Skin Care Nystatin 1 applic 05/31/19 09:00 06/03/19 20:30 Mycostatin Cream TOP 1 applic BID PERNELL Administration Pantoprazole Sodium 40 mg 05/30/19 21:00 06/03/19 21:12 Protonix IVP 40 mg BID PERNELL Administration Sodium Chloride 10 ml 05/30/19 17:00 06/04/19 02:01 Normal Saline Flush 0.9% IVP Not Given 0100,0900,1700 PERNELL Sodium Chloride 10 ml 05/30/19 16:36 06/03/19 15:57 Normal Saline Flush 0.9% IVP 10 ml PRN PRN Administration NEEDED PER PROVIDER ORDERS - Lab Result Fish Bone Diagrams: 06/05/19 04:25 06/05/19 04:25 - EKG Results EKG Interpreted Independently: Yes EKG Comparison: Unchanged from prior EKG EKG Findings: NSR, low voltage in precordial leads. - Additional Planning My Orders: My Active Orders 06/03/19 10:05 Transfuse RBCs Leukoreduced [RC] .ONCE FUROSEMIDE INJ 20mg VIAL [LASIX INJ 20mg VIAL] 20 mg IVP ONCE PRN 06/03/19 10:44 RBC, LEUKOREDUCED Routine TYPE AND SCREEN Routine 06/03/19 21:00 Atorvastatin [Lipitor] 40 mg PO QPM amLODIPine [Norvasc] 5 mg PO BID 06/04/19 MAGNESIUM [CHEM] Stat POTASSIUM [CHEM] Stat TROPONIN I HIGH SENSITIVITY [IAI] Stat 06/04/19 07:27 Initiate Hypoglycemia Protocol [RC] .protocol 06/04/19 08:00 Insulin Regular Human [NovoLIN R] 1 - 5 unit SUBQ Q6HR 06/04/19 08:06 Transfer [Admit \\ Transfer \\ Status] [RC] .ONCE 06/04/19 08:07 EKG - Electrocardiogram [RC] .ONCE Initiate ICU Electrolyte Prot. [RC] QSHIFT 06/04/19 08:10 CALCIUM, RFLX TO IONIZED CA IF [CHEM] Stat 06/04/19 09:00 Sodium Chloride 0.45% [Normal Saline 0.45%] 1,000 ml IV 60 mls/hr 06/04/19 11:30 TROPONIN I HIGH SENSITIVITY [IAI] Timed 06/04/19 Breakfast Clear Liquid Diet [DIET] Subjective - Subjective Patient Reports: Resting Comfortably Objective Vital Signs: Vital Signs - 24 hr 06/03/19 06/03/19 06/03/19 09:00 12:55 13:00 Temperature 36.6 C 37.1 C 37.1 C Heart Rate 68 Heart Rate [ 88 68 Monitoring electrodes] Respiratory 17 15 15 Rate Blood Pressure 156/68 H Blood Pressure 156/68 H [Left Brachial artery] Blood Pressure 147/65 H [Right Brachial artery] O2 Saturation 95 100 06/03/19 06/03/19 06/03/19 13:11 15:41 15:45 Temperature 36.8 C 37 C 37 C Heart Rate 71 69 Heart Rate [ 69 Monitoring electrodes] Respiratory 18 17 17 Rate Blood Pressure 135/79 H 156/69 H Blood Pressure 156/89 H [Left Brachial artery] Blood Pressure [Right Brachial artery] O2 Saturation 100 06/03/19 06/03/19 06/03/19 19:29 20:33 21:09 Temperature 36.7 C Heart Rate 71 Heart Rate [ 71 76 Monitoring electrodes] Respiratory 13 18 21 Rate Blood Pressure Blood Pressure 153/75 H 140/70 H [Left Brachial artery] Blood Pressure [Right Brachial artery] O2 Saturation 97 06/04/19 06/04/19 06/04/19 01:00 04:44 04:46 Temperature 36.8 C Heart Rate Heart Rate [ 63 74 73 Monitoring electrodes] Respiratory 14 18 24 Rate Blood Pressure Blood Pressure 86/60 L 128/83 H [Left Brachial artery] Blood Pressure [Right Brachial artery] O2 Saturation 97 97 06/04/19 06/04/19 07:31 07:32 Temperature 36.9 C Heart Rate 81 Heart Rate [ 81 Monitoring electrodes] Respiratory 17 17 Rate Blood Pressure Blood Pressure 145/66 H [Left Brachial artery] Blood Pressure [Right Brachial artery] O2 Saturation 95 Oxygen O2 Source [Without Activity] Nasal cannula O2 Source Nasal cannula I&O (Last 24 Hrs): Intake and Output Totals x24h 06/02/19 06/03/19 06/04/19 23:59 23:59 23:59 Intake Total 4950.5 2150 Output Total 2100 4475 1000 Balance 2850.5 -2325 -1000 General: Alert, Oriented x3 HEENT: Mucous membr. moist/pink Neck: Supple, No JVD Neuro: Non Focal Cardiovascular: No murmurs Respiratory: No respiratory distress Abdomen: Soft, Other (Obese with pannus) Extremities: No edema - Results Results: Laboratory Results WBC 5.6 x10^3/uL (4.8-10.8) 06/04/19 04:50 RBC 2.82 10^6/uL (4.20-5.40) L 06/04/19 04:50 Hgb 8.2 g/dL (12.0-16.0) L 06/04/19 04:50 Hct 27.3 % (37.0-47.0) L 06/04/19 04:50 MCV 96.8 fL (81.0-99.0) 06/04/19 04:50 MCH 29.1 pg (27.0-31.0) 06/04/19 04:50 MCHC 30.0 g/dL (32.0-36.0) L 06/04/19 04:50 RDW 17.0 % (12.0-15.0) H 06/04/19 04:50 Plt Count 205 10^3/uL (130-450) 06/04/19 04:50 MPV 9.8 fL (7.9-10.8) 06/04/19 04:50 Neut # (Auto) 3.4 10^3/uL (1.5-6.6) 06/04/19 04:50 Lymph # (Auto) 1.4 10^3/uL (1.5-3.5) L 06/04/19 04:50 [place] # (Auto) 0.6 10^3/uL (0.0-1.0) 06/04/19 04:50 Eos # (Auto) 0.2 10^3/uL (0.0-0.7) 06/04/19 04:50 Baso # (Auto) 0.0 10^3/uL (0.0-0.1) 06/04/19 04:50 Absolute Nucleated RBC 0.00 x10^3/uL 06/04/19 04:50 Nucleated RBC % 0.0 /100WBC 06/04/19 04:50 Manual Slide Review Indicated 06/02/19 04:57 WBC Morphology NORMAL APPEARANCE (NORMAL) 06/02/19 04:57 Platelet Estimate NORMAL (130-450,000) (NORMAL) 06/02/19 04:57 Platelet Morphology NORMAL APPEARANCE (NORMAL) 06/02/19 04:57 RBC Morph Micro Appear 2+ ANISOCYTOSIS (NORMAL) 1+ HYPOCHROMASIA (NORMAL) 2+ POIKILOCYTOSIS (NORMAL) 05/30/19 15:20 RBC Morph Micro Appear 2+ HYPOCHROMASIA (NORMAL) 05/31/19 04:15 RBC Morph Micro Appear 1+ HYPOCHROMASIA (NORMAL) 06/02/19 04:57 VBG pH 7.162 (7.31-7.41) L 05/31/19 04:15 Ionized Calcium 1.13 mmol/L (1.15-1.33) L 05/31/19 04:15 Sodium 146 mmol/L (135-145) H 06/04/19 04:50 Potassium 3.7 mmol/L (3.5-5.0) 06/04/19 04:50 Chloride 107 mmol/L (101-111) 06/04/19 04:50 Carbon Dioxide 26 mmol/L (21-32) 06/04/19 04:50 Anion Gap 13.0 (6-13) 06/04/19 04:50 BUN 24 mg/dL (6-20) H 06/04/19 04:50 Creatinine 1.8 mg/dL (0.4-1.0) H 06/04/19 04:50 Estimated GFR (MDRD) 27 (>89) L 06/04/19 04:50 Glucose 127 mg/dL (70-100) H 06/04/19 04:50 POC Whole Bld Glucose 144 mg/dL (70 - 100) H 06/04/19 07:20 Glycated Hemoglobin 8.5 % (4.6-6.2) H 05/31/19 04:15 Estim Average Glucose 197 (70-100) H 05/31/19 04:15 Calcium 8.8 mg/dL (8.5-10.3) 06/04/19 04:50 Phosphorus 2.9 mg/dL (2.5-4.6) 06/04/19 04:50 Magnesium 1.6 mg/dL (1.7-2.8) L 06/04/19 04:50 Total Bilirubin 0.3 mg/dL (0.2-1.0) 05/30/19 15:20 AST < 10 IU/L (10-42) L 05/30/19 15:20 ALT < 10 IU/L (10-60) L 05/30/19 15:20 Alkaline Phosphatase 70 IU/L (42-121) 05/30/19 15:20 Total Protein 7.1 g/dL (6.7-8.2) 05/30/19 15:20 Albumin 2.9 g/dL (3.2-5.5) L 06/01/19 04:20 Globulin 3.5 g/dL (2.1-4.2) 05/30/19 15:20 Albumin/Globulin Ratio 1.0 (1.0-2.2) 05/30/19 15:20 Lipase 22 U/L (22-51) 05/30/19 15:20 Nasal Screen MRSA (PCR) NEGATIVE (NEGATIVE) 05/30/19 17:45 Blood Type O POSITIVE 06/03/19 10:44 Antibody Screen NEGATIVE 06/03/19 10:44 Crossmatch IS Only See Detail 06/03/19 10:44 - Procedures Procedures: Procedures INSERTION OF INFUSION DEV INTO L SUBCLAV VEIN, PERC APPROACH (12/31/18) INSERTION OF INFUSION DEV INTO SUP VENA CAVA, PERC APPROACH (02/16/19) ULTRASONOGRAPHY OF RIGHT SUBCLAVIAN VEIN, GUIDANCE (12/31/18)
[2019-06-04] MEDS: LEVOTHYROXINE 75 MCG TABLET PO SCH (08:51)
[2019-06-04] MEDS: amLODIPine 5 MG TABLET PO SCH ×2 (08:52→20:42)
[2019-06-04] MEDS: METOPROLOL SUCCINATE 25 MG TABLET PO SCH (08:53)
[2019-06-04] MEDS: SODIUM CHLORIDE 0.45% 1,000 ML IV SCH (08:55)
[2019-06-04] MEDS: PANTOPRAZOLE 40 MG VIAL IVP SCH ×2 (08:55→20:51)
[2019-06-04 09:01] LABS: CALCIUM 8.8 mg/dL (8.5-10.3)
[2019-06-04] MEDS: NYSTATIN CREAM 15 GM TUBE TOP SCH ×2 (11:32→20:51)
[2019-06-04] MEDS: INSULIN ASPART 300 UNIT/3 ML PEN SUBQ SCH ×3 (11:44→20:51)
[2019-06-04] MEDS: MIN OIL/DIMETHICON/COCONUT OIL 92 GM TUBE TOP PRN (17:00)
--- NOTE | 2019-06-04 19:07 | ADVANCE CARE PLANNING NOTE ---
Advance Care Planning - Planning Encounter Date: 06/04/19 Time: 15:00 Purpose: To review her diagnoses and establish her wishes regarding aggressiveness of medical care Parties in Attendance: I spoke to the patient and then the daughter joined us, at bedside Decisional Capacity of the Patient: She has full decision making capacity - Diagnosis for Encounter (1) Accelerated idioventricular rhythm Summary: New arrhythmia, and patient is back in the ICU and her colonoscopy was cancelled due to this rhythm. The Anesthesiologist felt that she is too high risk, to have conscious sedation done here (and advised transfer to a facility with higher level of care). (2) Rectal bleeding Summary: She had a painless rectal hemorrhage, which brought her to the ER, and she continues to have slow bleeding from rectum, she reports to me. - Encounter Subjective/Patient's Story: The patient lives with her daughter and they care for each other. The patient is mostly bedridden and is in a wheelchair. She and the daughter go to a clinic where they are weighed every morning. 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 Patient describes that she has restrictions in her activity but continues to do whatever she can for volunteering and assisting in the community. She started using oxygen 23/04, several months ago for her COPD, she stopped smoking many years ago. The patient is compliant with her medications for her diabetes, cardiac history, and other diagnoses. She signed a POLST form several months ago to be a DNR. Objective/Medical Story: This is a 74-year-old white female with a history of morbid obesity, diabetes, sleep apnea, COPD on home oxygen for just the past several months, prior [place] related to demand ischemia, and she declined coronary angiography and wished to be a DNR, was admitted now with painless rectal hemorrhage and is to be getting a colonoscopy, once her CATY and severe hyperkalemia were treated and stabilized. The colonoscopy was rescheduled twice, once because of incomplete colon prep and a second time due to anemia, getting a blood transfusion. Today the colonoscopy was canceled because of new AIVR. Goals of Care: She does wish to proceed with evaluation of the rectal bleeding since it is continuing. She understands that she is a high risk patient because of her past medical history and the current dysrhythmia. She agrees to transfer to higher level of care hospital. She continues to decline any coronary invasive evaluation or intervention. DNR request continues. Plan: Transfer to a hospital with higher level of care will be undertaken. The patient wishes to go to [facility] where she was hospitalized just 1 month ago and 2 months ago. Code Status: Do Not Attempt Resuscitation Time spent on advance care plannin min
[2019-06-04] MEDS: SODIUM POLYSTYRENE SULFONATE 15 GM/60 ML BOTTLE PO SCH (20:16)
[2019-06-04] MEDS: ATORVASTATIN 40 MG TABLET PO SCH (20:42)
[2019-06-04] MEDS: SODIUM CHLORIDE FLUSH 0.9% 10 ML SYRINGE IVP PRN (20:43)
[2019-06-05] MEDS: SODIUM CHLORIDE 0.45% 1,000 ML IV SCH (01:42)
[2019-06-05] MEDS: HYDROcod/ACETAM 5/325 MG TABLET PO PRN ×2 (03:48→14:57)
[2019-06-05 05:09] LABS: BASOPHILS % (AUTO) 0.2 %; EOSINOPHILS # (AUTO) 0.2 10^3/uL (0.0-0.7); EOSINOPHILS % (AUTO) 3.3 %; LYMPHOCYTES # (AUTO) 1.2 10^3/uL (1.5-3.5); LYMPHOCYTES % (AUTO) 20.5 %; MEAN CORPUSCULAR HEMOGLOBIN 29.1 pg (27.0-31.0); MEAN CORPUSCULAR HGB CONC 30.1 g/dL (32.0-36.0); MEAN CORPUSCULAR VOLUME 96.7 fL (81.0-99.0); MEAN PLATELET VOLUME 10.1 fL (7.9-10.8); MONOCYTES # (AUTO) 0.7 10^3/uL (0.0-1.0); MONOCYTES % (AUTO) 11.2 %; NEUTROPHILS # (AUTO) 3.8 10^3/uL (1.5-6.6); NEUTROPHILS % (AUTO) 63.8 %; PLT - PLATELET COUNT 204 10^3/uL (130-450); RED BLOOD COUNT 2.75 10^6/uL (4.20-5.40); RED CELL DISTRIBUTION WIDTH 16.5 % (12.0-15.0)
[2019-06-05 05:11] LABS: VBG PH 7.363 (7.31-7.41)
[2019-06-05 05:18] LABS: CALCIUM 8.6 mg/dL (8.5-10.3); CREATININE 1.8 mg/dL (0.4-1.0); MAGNESIUM 2.7 mg/dL (1.7-2.8)
[2019-06-05] MEDS: LEVOTHYROXINE 75 MCG TABLET PO SCH (06:41)
[2019-06-05] MEDS: IPRATROPIUM/ALBUTEROL 3 ML NEB INH SCH (07:26)
[2019-06-05] MEDS: INSULIN ASPART 300 UNIT/3 ML PEN SUBQ SCH ×2 (07:29→12:03)
[2019-06-05] MEDS: amLODIPine 5 MG TABLET PO SCH (08:27)
[2019-06-05] MEDS: SODIUM CHLORIDE FLUSH 0.9% 10 ML SYRINGE IVP SCH (08:29)
[2019-06-05] MEDS: PANTOPRAZOLE 40 MG VIAL IVP SCH (08:29)
[2019-06-05] MEDS: NYSTATIN CREAM 15 GM TUBE TOP SCH (08:54)
[2019-06-05] MEDS ORDERED: METOPROLOL SUCCINATE 25 MG TABLET PO SCH (09:00)
[2019-06-05 15:05] VITALS: BP 146/67
--- NOTE | 2019-06-05 16:00 | Discharge Plan ---
Discharge Plan Problem Reviewed?: Yes Disposition: 02 Transfer Acute Care Hosp Condition: Serious No Smoking: If you smoke, Please STOP! Call for help. Follow-up with: Jose Luis Metcalf MD [Primary Care Provider] -
--- NOTE | 2019-06-08 01:16 | DISCHARGE SUMMARY ---
Physician: Angeline Tolliver MD DATE OF ADMISSION: 05/30/2019 DATE OF DISCHARGE: 06/05/2019 HISTORY OF PRESENT ILLNESS: This is a 74-year-old white female with a history of morbid obesity, diabetes on insulin, history of prior ESBL urinary tract infections leading to sepsis and metabolic encephalopathy earlier this year, history of acute NSTEMI during one of her episodes of sepsis and she wanted no cardiac intervention and wished to be a DNR. There is also history of COPD, she stopped smoking cigarettes one year ago and is on home oxygen at 3 liters per nasal cannula 23/04. She also has a history of needing a BiPAP machine for sleep apnea. She also has hypothyroidism, prior TIAs and is on Xarelto, history of chronic pain and DJD, anxiety and depression, and has a chronic indwelling Blanco due to incontinence and prior decubitus ulcers. There is also chronic kidney disease with a baseline creatinine of 1.5-2.0. The patient presented to the ER with acute onset of painless, bright red blood per rectum and was found to have rectal prolapse and some minor blood was seen. Her workup showed a hemoglobin of 8.1 (baseline 10), new worsening kidney function with a creatinine of 3.5, as well as new hyperkalemia with a potassium of 6.6. She was given insulin and D10 in the emergency room, which did not affect the hyperkalemia, and she was admitted to the ICU for management of her hyperkalemia, acute on chronic kidney injury and GI blood loss anemia. HOSPITAL COURSE AND DISCHARGE DIAGNOSES 1. Accelerated idioventricular rhythm. On 06/04/2019, she was being seen by Anesthesia to take her for a colonoscopy and the telemetry rhythm was noted to have multiple long runs of AIVR (slow V-Tach) at rates of 75. With this, she was asymptomatic and blood pressure was stable. The colonoscopy was canceled. An EKG was done that showed no acute ischemic changes and troponins were checked and did not increase. She had numerous runs of sustained monomorphic slow ventricular tachycardia that day and the following day, and was felt to be excessively high risk to undergo any diagnostic procedures here with conscious sedation, she was transferred to [facility], was kindly accepted in transfer by the hospitalist, Dr. Martinez. 2. Anemia due to gastrointestinal blood loss. Her hemoglobin dropped from 8.1 at admission and hovered between 7 and 7.5. When the hemoglobin was 6.6, she received 1 unit of packed red blood cells with Lasix following that. This improved her hemoglobin to 8.0, at the time of transfer. 3. Rectal bleeding. The patient had continued dark red and bright red blood per rectum throughout this entire stay. She did undergo a GoLYTELY prep and a SUPREP was also needed for better prep for colonoscopy. The colonoscopy was therefore requested to be done at the facility with higher level of care. 4. Oppon-vd-lffzexs kidney failure. The patient received gentle hydration throughout her hospital stay because she was on clear liquids preparing for a colonoscopy. With gentle hydration, her creatinine improved successively every day from 3.5 down to 2.0 at the time of transfer. When she required IV Lasix x1 after the transfusion, her creatinine increased minimally and only intermittently. 5. Chronic diastolic heart failure. The patient had an Echo done at this hospital just several months ago, which showed preserved LVEF, but diastolic dysfunction present. She did not have a repeat Echo at this time. She was kept on her same cardiac medications while here. 6. Decubitus ulcer, buttock. The patient had a stage I decubitus ulcer, which was treated with topical care and turning and repositioning. 7. Type 2 diabetes mellitus with hyperglycemia, long-term current use of insulin. The patient was kept on a liquid, carb-controlled diet during most of her stay, and sliding scale insulin coverage was ordered. 8. Chronic indwelling Blanco catheter. This was planned to be a continued management, therefore, it was not removed. The urinalysis done in the ER showed some bacteria, which were felt to be colonization since she had no signs of infection such as fever or elevation of white blood count. 9. History of chronic obstructive pulmonary disease. She had no exacerbations while here. She was continued on her prehospital nebulizers, inhalers and oxygen by nasal cannula 23/04. 10. History of hypothyroidism. The patient was kept on her home thyroid dose while here. 11. Chronic pain. The patient was stable on her current medications and management while here. 12. History of anxiety. She was stable on her home medications. 13. Hyperkalemia. This patient required aggressive management with an IV insulin drip and bicarbonate drip and D10 drip for the first three days in the ICU and was then started on Kayexalate. The potassium dropped from 6.6 to only 6.1 by the first day, 5.5 by the next day and finally was in the 5.0 down to 3.7 range at the time of discharge. ALLERGIES: NONE. MEDICATIONS AT THE TIME OF TRANSFER 1. IV saline at 60 mL per hour. 2. Tylenol p.r.n. fever or pain. 3. [place] 5/325 mg t.i.d. p.r.n. pain. 4. DuoNeb inhaler b.i.d. scheduled. 5. Norvasc 5 mg b.i.d. 6. Lipitor 40 mg at bedtime. 7. Levothyroxine 150 mcg daily. 8. Toprol-XL 12.5 mg b.i.d. 9. Mineral oral cavilon topically p.r.n. 10. Nystatin topically b.i.d. 11. Protonix 40 mg IV b.i.d. CONDITION AT DISCHARGE/TRANSFER: Serious. PHYSICAL EXAMINATION: Morbidly obese white female, in no apparent distress. VITAL SIGNS: Blood pressure 140/67, heart rate 74 in sinus rhythm, respiratory rate 20, O2 saturation 95% on 3 liters oxygen nasal cannula supplemental. HEENT: Revealed good dentition and moist oral mucosa. NECK: Obese. CHEST: Clear. HEART: Distant heart sounds. ABDOMEN: Obese with a large pannus, nontender. No organomegaly. EXTREMITIES: No clubbing, cyanosis or edema. NEUROLOGIC: Grossly intact. CODE STATUS: DNR. FOLLOW UP: This will be determined after her stay at [facility]. Time required to complete this entire discharge, chart review, dictation, arrangements for acceptance for transfer to higher level of care: 60 minutes. cc: Jose Luis Metcalf MD TD: 06/07/2019 19:14 MTDD
== END 2019-06-05 16:00 | disposition short-term general hospital (02) | DRG 378 ==
LOC: ED 14:39 → ICU 16:36
PROVIDERS: ADMIT Internal Medicine; ATTEND Internal Medicine
PROC: 30233N1 Transfusion of Nonautologous Red Blood Cells into Peripheral Vein, Percutaneous Approach (ICD-10-PCS; principal; 2019-06-03)
DX: K92.2 Gastrointestinal hemorrhage, unspecified (principal); K62.5 Hemorrhage of anus and rectum; I47.2 Ventricular tachycardia; I48.91 Unspecified atrial fibrillation; R31.9 Hematuria, unspecified; I11.0 Hypertensive heart disease with heart failure; I50.9 Heart failure, unspecified; E11.9 Type 2 diabetes mellitus without complications; Z68.41 Body mass index [BMI] 40.0-44.9, adult; J43.9 Emphysema, unspecified; K21.9 Gastro-esophageal reflux disease without esophagitis; N17.9 Acute kidney failure, unspecified; I13.0 Hypertensive heart and chronic kidney disease with heart failure and stage 1 through stage 4 chronic kidney disease, or unspecified chronic kidney disease; R33.9 Retention of urine, unspecified; I50.32 Chronic diastolic (congestive) heart failure; L89.309 Pressure ulcer of unspecified buttock, unspecified stage; L89.159 Pressure ulcer of sacral region, unspecified stage; E11.22 Type 2 diabetes mellitus with diabetic chronic kidney disease; N18.9 Chronic kidney disease, unspecified; G43.909 Migraine, unspecified, not intractable, without status migrainosus; D50.0 Iron deficiency anemia secondary to blood loss (chronic); E11.65 Type 2 diabetes mellitus with hyperglycemia; E87.5 Hyperkalemia; E83.42 Hypomagnesemia; E66.01 Morbid (severe) obesity due to excess calories; M54.9 Dorsalgia, unspecified; L89.301 Pressure ulcer of unspecified buttock, stage 1; E03.9 Hypothyroidism, unspecified; K64.9 Unspecified hemorrhoids; G89.29 Other chronic pain; F41.9 Anxiety disorder, unspecified; J44.9 Chronic obstructive pulmonary disease, unspecified; G47.30 Sleep apnea, unspecified; K59.09 Other constipation; R32 Unspecified urinary incontinence; K62.3 Rectal prolapse; F32.9 Major depressive disorder, single episode, unspecified; M19.90 Unspecified osteoarthritis, unspecified site; J32.9 Chronic sinusitis, unspecified; H91.90 Unspecified hearing loss, unspecified ear; I95.9 Hypotension, unspecified; Z66 Do not resuscitate; Z79.891 Long term (current) use of opiate analgesic; Z79.01 Long term (current) use of anticoagulants; Z79.82 Long term (current) use of aspirin; Z79.4 Long term (current) use of insulin; I25.2 Old myocardial infarction; Z87.440 Personal history of urinary (tract) infections; Z87.891 Personal history of nicotine dependence; Z99.81 Dependence on supplemental oxygen; Z86.73 Personal history of transient ischemic attack (TIA), and cerebral infarction without residual deficits
CPT/HCPCS: 36415; 71045; 80048; 80053; 82040; 82310; 82330; 83036; 83690; 83735; 84100; 84132; 84484; 85014; 85018; 85025; 86850; 86900; 86901; 86920; 87150; 93005; 94640; 99285; A6250; A9270; J1815; J3490; J7040; P9016

== ENCOUNTER 2019-07-29 12:39 | Outpatient (CLI) | payer MEDICARE, OTHER | END 2019-07-29 12:40 | disposition critical access hospital (66) | LOC: EMS 12:39 | PROVIDERS: ATTEND Surgery | DX: R53.1 Weakness (principal) | CPT/HCPCS: A0425; A0429 ==

== ENCOUNTER 2019-07-29 12:55 | Inpatient (IN) | payer MEDICARE, OTHER ==
--- NOTE | 2019-07-29 13:40 | ED Physician Documentation ---
History of Present Illness - Stated complaint Stated Complaint: WEAKNESS - Chief complaint Chief Complaint: Resp - Additonal information Additional information: This is a 74-year-old female with a history of COPD, hypertension, congestive he art failure, atrial fibrillation, Urinary tract infections leading to sepsis and metabolic encephalopathy, NSTEMI, COPD on 3 L nasal cannula, on Xarelto for TIA. presents with weakness and feeling tired. Reportedly she was sent in from home health when it was found that she was more weak and usual. She denies any pain or fever. Patient is a fairly poor historian, she answers to questions but is unable to via detailed history. There is no family or care provider at bedside during my interview, limiting history initially. She has a chronic indwelling Blanco catheter for reportedly urinary retention. Review of Systems Constitutional: denies: Fever Eyes: denies: Loss of vision Nose: denies: Rhinorrhea / runny nose Cardiac: denies: Chest pain / pressure Respiratory: denies: Dyspnea GI: denies: Abdominal Pain : reports: Other (Blanco catheter in place) Neurologic: reports: Generalized weakness PD PAST MEDICAL HISTORY - Past Medical History Cardiovascular: Congestive heart failure, Hypertension, Coronary artery disease, [place] Respiratory: COPD, Emphysema, Shortness of breath, CPAP use, Other Neuro: Migraines Endocrine/Autoimmune: Type 2 diabetes, HyPOthyroidism GI: GERD, Chronic constipation, Hemorrhoids ECHO VASCULAR TECH: None : Incontinence, Indwelling catheter HEENT: Chronic sinusitis, Chronic hearing loss Psych: Depression, Anxiety Musculoskeletal: Osteoarthritis, Chronic back pain Derm: Other - Past Surgical History Past Surgical History: Yes General: Cholecystectomy /ECHO VASCULAR TECH: Hysterectomy - Present Medications Home Medications: Ambulatory Orders Medication Instructions Recorded Confirmed Atorvastatin Calcium 40 mg PO QPM 11/13/17 08/02/19 HYDROcod/ACETAM 5/325 [[place] 5/325] 0.5 - 1 tab PO TID PRN 11/13/17 08/02/19 Bisacodyl [Dulcolax] 5 mg PO BID PRN 11/05/18 08/02/19 Rivaroxaban [Xarelto] 15 mg PO QDDINNER 11/05/18 08/02/19 Diphenoxylate HCl/Atropine 1 tab PO QID PRN 02/17/19 08/02/19 [Diphenoxylate-Atrop 2.5-0.025] Ferrous Sulfate 325 mg PO DAILYWM 08/30/19 11/02/19 Insulin 70/30 Human [NovoLIN] 20 unit SUBQ BID 05/30/19 08/02/19 Ipratropium/Albuterol Sulfate 3 ml INH BID 05/30/19 08/02/19 [Iprat-Albut 0.5-3(2.5) mg/3 ml] Levothyroxine Sodium [Synthroid] 150 mcg PO QDAC 05/30/19 08/02/19 Magnesium Hydroxide [Milk of 2,400 mg PO QPM PRN 05/30/19 08/02/19 Magnesia] Omeprazole 20 mg PO QDAC 05/30/19 08/02/19 Furosemide 20 mg PO BIDDIURETIC #0 08/03/19 08/02/19 Metoprolol Succinate [Toprol Xl] 50 mg PO DAILY #60 tablet 08/03/19 08/02/19 Nystatin Cream [Mycostatin Cream] 1 applic TOP BID #3 tube 08/03/19 Sod Polystyrene Sulf. [Kayexalate] 15 gm PO DAILY #1 bottle 08/03/19 amLODIPine [Norvasc] 5 mg PO BID #0 08/03/19 08/02/19 - Allergies Allergies/Adverse Reactions: Allergies Allergy/AdvReac Type Severity Reaction Status Date / Time No Known Drug Allergies Allergy Verified 07/29/19 13:03 - Social History Does the pt smoke?: No Smoking Status: Never smoker Does the pt drink ETOH?: No Does the pt have substance abuse?: No - Immunizations Immunizations are current?: Yes - POLST Patient has POLST: Yes POLST Status: DNR PD ED PE NORMAL - Vitals Vital signs reviewed: Yes - General General: No acute distress - HEENT HEENT: Atraumatic, PERRL - Neck Neck: Supple, no meningeal sign - Cardiac Cardiac: RRR - Respiratory Respiratory: No respiratory distress, Clear bilaterally - Abdomen Abdomen: Soft, Non tender, Other (Soft, obese.) - Female Female : Other (Blanco catheter in place, draining cloudy urine.) - Derm Derm: Warm and dry - Extremities Extremities: No deformity - Neuro Neuro: Other (Alert, oriented to event, self, and general place. Moving all extremities. Speech is normal, the patient has a mild amount of confusion.) - Psych Psych: Normal mood, Normal affect Results - Vitals Vitals: Oxygen O2 Source [Without Activity] Nasal cannula O2 Source Nasal cannula Oxygen Flow Rate 4 - EKG (time done) 15:46 Other comments: Other comments (Sinus rhythm, rate 64, No ST elevation or depression, T wave inversions in AVL and 1. No peaked T waves.) - Labs Labs: Laboratory Tests 07/29/19 07/29/19 07/29/19 14:05 14:32 14:32 WBC 5.6 RBC 3.22 L Hgb 9.4 L Hct 33.8 L MCV 105.0 H MCH 29.2 MCHC 27.8 L RDW 15.1 H Plt Count 188 MPV 10.1 Neut # (Auto) 3.6 Lymph # (Auto) 1.2 L [place] # (Auto) 0.5 Eos # (Auto) 0.1 Baso # (Auto) 0.0 Absolute Nucleated RBC 0.00 Nucleated RBC % 0.0 PT INR Sodium 143 Potassium 7.2 H* Chloride 114 H Carbon Dioxide 23 Anion Gap 6.0 BUN 98 H* Creatinine 2.8 H Estimated GFR (MDRD) 16 L Glucose 86 Calcium 9.1 Total Bilirubin 0.4 AST 10 ALT < 10 L Alkaline Phosphatase 74 B-Natriuretic Peptide Total Protein 7.6 Albumin 3.8 Globulin 3.8 Albumin/Globulin Ratio 1.0 Lipase 27 Urine Color YELLOW Urine Clarity CLOUDY Urine pH 5.0 Ur Specific [place] 1.020 Urine Protein NEGATIVE Urine Glucose (UA) NEGATIVE Urine Ketones NEGATIVE Urine Occult Blood NEGATIVE Urine Nitrite NEGATIVE Urine Bilirubin NEGATIVE Urine Urobilinogen 0.2 (NORMAL) Ur Leukocyte Esterase SMALL H Urine RBC 0-5 Urine WBC 11-25 H Ur Squamous Epith Cells MANY Squamous H Amorphous Sediment Rare Urine Bacteria Few Urine Culture Comments NOT INDICATED 07/29/19 07/29/19 14:32 14:32 WBC RBC Hgb Hct MCV MCH MCHC RDW Plt Count MPV Neut # (Auto) Lymph # (Auto) [place] # (Auto) Eos # (Auto) Baso # (Auto) Absolute Nucleated RBC Nucleated RBC % PT 13.7 H INR 1.2 Sodium Potassium Chloride Carbon Dioxide Anion Gap BUN Creatinine Estimated GFR (MDRD) Glucose Calcium Total Bilirubin AST ALT Alkaline Phosphatase B-Natriuretic Peptide 54 Total Protein Albumin Globulin Albumin/Globulin Ratio Lipase Urine Color Urine Clarity Urine pH Ur Specific [place] Urine Protein Urine Glucose (UA) Urine Ketones Urine Occult Blood Urine Nitrite Urine Bilirubin Urine Urobilinogen Ur Leukocyte Esterase Urine RBC Urine WBC Ur Squamous Epith Cells Amorphous Sediment Urine Bacteria Urine Culture Comments - Rads (name of study) CXR Radiology: Other (Stable cardiomegaly and scarring) Procedures - Central Line Central Line Preparation: Consent Obtained, Time out completed, Ultrasound used, Sterile prep and drape Central line location: Left IJ Central line type: Triple lumen Central line aftercare: Chlorhexidine disc placed, Secured, Placement confirmed, No pneumothorax, No complications, Pt tolerated well PD MEDICAL DECISION MAKING - ED course Complexity details: considered differential (UTI, electrolyte abnormality, CATY) ED course: Pt presents with generalized weakness and confusion. Her labs reveal hyperkalemia and CATY. Calcium gluconate, Dextrose and insulin given, along with NS bolus. EKG shows no peaked T waves or heart block. LIJ central placed given pt's electrolyte abnormalities and very poor veins for peripheral IVs. CXR shows no acute cardiopulmonary abnormality. Central line placement confirmed on XR. Urine shows UTI, ceftriaxone given. I am suspicious that patient had a UTI leading to poor intake and CATY, leading to hyperkalemia. She seems to have a propensity for hyperkalemia on chart review. She was admitted for further evaluation and work up, repeat BMP pending at the time of admission. Departure - Departure Disposition: 66 [facility] DC/Xfer Clinical Impression: Hyperkalemia, CATY (acute kidney injury) UTI (urinary tract infection) Qualifiers: Urinary tract infection type: acute cystitis Hematuria presence: without hematuria Qualified Code(s): N30.00 - Acute cystitis without hematuria Condition: Good Discharge Date/Time: 07/29/19 18:57
--- NOTE | 2019-07-29 14:12 | XRAY Report ---
Reason: Increased oxygen requirement Procedure Date: 07/29/2019 Accession Number: [id number] / [id number] Procedure: XR - Chest 1 View X-Ray CPT Code: 42582 FULL RESULT: EXAM: CHEST RADIOGRAPHY EXAM DATE: 07/29/2019 01:59 PM. CLINICAL HISTORY: Increased oxygen requirement. COMPARISON: CHEST 1 VIEW 06/02/2019 10:46 AM CHEST 1 VIEW 05/30/2019 4:54 PM. TECHNIQUE: 1 view. FINDINGS: Lungs/Pleura: Shallow inspiratory effort with elevated left diaphragm. Stable linear subsegmental atelectasis/scar right mid and left lower lung. Hypoventilatory change at the lung bases. No pleural effusion. No pneumothorax. Mediastinum: Within exam limitations, the cardiomediastinal contour is normal. Other: None. IMPRESSION: Stable chest x-ray compared with 06/02/2019 read demonstrating cardiac enlargement, bibasilar hypoventilatory change, and evidence of chronic scarring. RADIA
[2019-07-29 14:49] LABS: BILIRUBIN,URINE NEGATIVE (NEGATIVE); GLUCOSE, URINE (UA) NEGATIVE (NEGATIVE); KETONES,URINE (UA) NEGATIVE (NEGATIVE); LEUKOCYTE ESTERASE, URINE SMALL (NEGATIVE); NITRITE,URINE NEGATIVE (NEGATIVE); OCCULT BLOOD,URINE NEGATIVE (NEGATIVE); PROTEIN,URINE NEGATIVE (NEGATIVE); UROBILINOGEN,URINE 0.2 (NORMAL) E.U./dL (NORMAL)
[2019-07-29 14:51] LABS: CLARITY,URINE CLOUDY (CLEAR)
[2019-07-29 14:52] LABS: BASOPHILS % (AUTO) 0.5 %; EOSINOPHILS # (AUTO) 0.1 10^3/uL (0.0-0.7); EOSINOPHILS % (AUTO) 2.5 %; HGB - HEMOGLOBIN 9.4 g/dL (12.0-16.0); LYMPHOCYTES # (AUTO) 1.2 10^3/uL (1.5-3.5); LYMPHOCYTES % (AUTO) 21.4 %; MEAN CORPUSCULAR HEMOGLOBIN 29.2 pg (27.0-31.0); MEAN CORPUSCULAR HGB CONC 27.8 g/dL (32.0-36.0); MEAN PLATELET VOLUME 10.1 fL (7.9-10.8); MONOCYTES # (AUTO) 0.5 10^3/uL (0.0-1.0); MONOCYTES % (AUTO) 9.5 %; NEUTROPHILS # (AUTO) 3.6 10^3/uL (1.5-6.6); NEUTROPHILS % (AUTO) 64.7 %; PLT - PLATELET COUNT 188 10^3/uL (130-450); RED BLOOD COUNT 3.22 10^6/uL (4.20-5.40); RED CELL DISTRIBUTION WIDTH 15.1 % (12.0-15.0); WHITE BLOOD COUNT 5.6 x10^3/uL (4.8-10.8)
[2019-07-29 14:56] LABS: INR 1.2 (0.8-1.2); PT - PROTHROMBIN TIME 13.7 secs (9.9-12.6)
[2019-07-29 15:05] LABS: ALBUMIN 3.8 g/dL (3.2-5.5); ALKALINE PHOSPHATASE 74 IU/L (42-121); ALT ALANINE AMINOTRANSFERASE < 10 IU/L (10-60); AST ASPARTATE AMINOTRANSFERASE 10 IU/L (10-42); BILIRUBIN,TOTAL 0.4 mg/dL (0.2-1.0); CALCIUM 9.1 mg/dL (8.5-10.3); CARBON DIOXIDE - CO2 23 mmol/L (21-32); CHLORIDE 114 mmol/L (101-111); CREATININE 2.8 mg/dL (0.4-1.0); GFR - MDRD 16 (>89); GLUCOSE 86 mg/dL (70-100); LIPASE 27 U/L (22-51); SODIUM 143 mmol/L (135-145); TOTAL PROTEIN 7.6 g/dL (6.7-8.2)
[2019-07-29 15:10] LABS: BUN - BLOOD UREA NITROGEN 98 mg/dL (6-20)
[2019-07-29 15:12] LABS: AMORPHOUS SEDIMENT,UR Rare /LPF; BACTERIA,URINE Few /HPF (None Seen); RBC,URINE 0-5 /HPF (0-5); SQUAMOUS EPITHELIAL CELL,UR MANY Squamous (<= Few)
[2019-07-29] MEDS ORDERED: SODIUM CHLORIDE 0.9% IV ONE (15:20)
[2019-07-29] MEDS ORDERED: CALCIUM GLUCONATE IV ONE (15:20)
[2019-07-29] MEDS ORDERED: INSULIN REGULAR HUMAN 100 UNIT/1 ML 10 ML MDV IVP STA ×2 (15:21→22:19)
[2019-07-29] MEDS ORDERED: DEXTROSE 50% ABBOJECT 25 GM/50 ML SYRINGE IVP STA (15:21)
[2019-07-29] MEDS ORDERED: SODIUM CHLORIDE 0.9% 1,000 ML IV ONE (15:22)
[2019-07-29] MEDS ORDERED: cefTRIAXone 1 GM in SODIUM CHLORIDE 0.9% MINIBAG 100 ML IV STA (17:16)
--- NOTE | 2019-07-29 17:49 | XRAY Report ---
Reason: centeral line placement Procedure Date: 07/29/2019 Accession Number: [id number] / [id number] Procedure: XR - Chest for Line Placement CPT Code: FULL RESULT: EXAM: CHEST RADIOGRAPHY EXAM DATE: 07/29/2019 05:38 PM. CLINICAL HISTORY: Centeral line placement. COMPARISON: CHEST 1 VIEW 07/29/2019 1:43 PM. TECHNIQUE: 1 view. FINDINGS: Lungs/Pleura: Mild continued pulmonary edema seen. No focal opacities evident. No pleural effusion. No pneumothorax. Mediastinum: Left jugular approach central venous line with its tip projected over the distal SVC. Within exam limitations, there is moderate stable enlargement of cardiac medicine and silhouette. Other: None. IMPRESSION: Mild continued pulmonary edema. Moderate stable enlargement of cardiomediastinal silhouette. RADIA
[2019-07-29] MEDS ORDERED: DEXTROSE 10% 250 ML IV STA ×2 (17:57→22:18)
[2019-07-29] MEDS ORDERED: ONDANSETRON 4 MG/2 ML VIAL IVP PRN (18:01)
[2019-07-29] MEDS ORDERED: ONDANSETRON ODT 4 MG TABLET TL PRN (18:01)
[2019-07-29] MEDS: DEXTROSE 10% 250 ML IV STA (18:14)
[2019-07-29] MEDS ORDERED: DEXTROSE 10% 250 ML IV ONE (18:35)
[2019-07-29] MEDS ORDERED: SODIUM CHLORIDE 0.9% 1,000 ML IV SCH ×2 (19:00→22:20)
[2019-07-29] MEDS ORDERED: METOPROLOL TARTRATE 25 MG TABLET PO SCH (21:00)
[2019-07-29] MEDS: SODIUM CHLORIDE FLUSH 0.9% 10 ML SYRINGE IVP SCH (21:06)
[2019-07-29] MEDS: SODIUM CHLORIDE FLUSH 0.9% 10 ML SYRINGE IVP PRN ×2 (21:06→23:15)
--- NOTE | 2019-07-29 21:49 | HISTORY & PHYSICAL EXAMINATION ---
Chief Complaint - Chief Complaint Chief Complaint: I am sick History of Present Illness - Admitted From Admitted From:: Home - History Obtained From Records Reviewed: Yes History obtained from: Patient, EMR Exam Limitations: Patient is confused - History of Present Illness HPI Comment/Other: This is a 74 year old female with a past medical history significant for atrial fibrillation (on Xarelto), chronic respiratory failure (on 3L), COPD, chronic indwelling roldan catheter who presents from home today because she is sick. She reports that her daughter told her that "she looks sick" and so she brought her to the ER today. Patient reports feeling weak and has had poor oral intake over the last week. She also believes she has had decreased urine output via her roldan catheter but is not sure how long that has been going on for. She reports feeling sleepy and confused. She is unable to go into detail when asked review of systems questions and keeps saying that she is sick. In the emergency department, she was found to have abnormal renal function as well as an elevated potassium of 7.2. She received insulin, dextrose, and calcium gluconate. Medicine was consulted for admission given her acute kidney injury and hyperkalemia. There is no family present at bedside at this time and the patient is altered. Her POLST form states that she is a DNR and so he has her prior admissions and there she will be made a DNR at this time until it is confirmed by the family or the patient. 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: reports: None : reports: Incontinence, Indwelling catheter HEENT: reports: Chronic sinusitis, Chronic hearing loss Psych: reports: Depression, Anxiety Musculoskeletal: reports: Osteoarthritis, Chronic back pain Derm: reports: Other MRSA Hx?: No - Past Surgical History General: reports: 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 Pr ior chart review reveals that her mother from an unknown type of cancer. Her father of CAD. He was also a diabetic. Living arrangement: At home Social History Notes: The patient states she lives at home with her oldest daugther review. Chart review notes that her a few years ago. She denies smoking and alcohol use at this time but reports a prior history of tobacc use. - Substance History Use: Uses substance without health or social issues: NONE - POLST Patient has POLST: Yes POLST Status: DNR Meds/Allgy - Home Medications Home Medications: Ambulatory Orders Medication Instructions Recorded Confirmed Atorvastatin Calcium 40 mg PO QPM 11/13/17 05/30/19 HYDROcod/ACETAM 5/325 [[place] 5/325] 1 tab PO TID PRN 11/13/17 05/30/19 Metoprolol Succinate [Toprol Xl] 50 mg PO DAILY #60 tablet 11/15/17 05/30/19 Bisacodyl [Dulcolax] 5 mg PO BID PRN 11/05/18 05/30/19 Rivaroxaban [Xarelto] 15 mg PO QDDINNER 11/05/18 05/30/19 Diphenoxylate HCl/Atropine 1 tab PO QID PRN 02/17/19 05/30/19 [Diphenoxylate-Atrop 2.5-0.025] Nystatin 1 applic TOP BID 02/17/19 05/30/19 Saccharomyces Boulardii [Florastor] 250 mg PO DAILYWM 02/17/19 05/30/19 Ferrous Sulfate 325 mg PO DAILYWM 05/30/19 05/30/19 Furosemide 40 mg PO BIDDIURETIC 05/30/19 05/30/19 Insulin 70/30 Human [NovoLIN] 20 unit SUBQ BID 05/30/19 05/30/19 Ipratropium/Albuterol Sulfate 3 ml INH BID 05/30/19 05/30/19 [Iprat-Albut 0.5-3(2.5) mg/3 ml] Levothyroxine Sodium [Synthroid] 150 mcg PO QDAC 05/30/19 05/30/19 Magnesium Hydroxide [Milk of 2,400 mg PO QPM PRN 05/30/19 05/30/19 Magnesia] Omeprazole 20 mg PO QDAC 05/30/19 05/30/19 Spironolactone [Aldactone] 25 mg PO DAILY 05/30/19 05/30/19 amLODIPine [Norvasc] 5 mg PO BID 05/30/19 05/30/19 - Allergies Allergies/Adverse Reactions: Allergies Allergy/AdvReac Type Severity Reaction Status Date / Time No Known Drug Allergies Allergy Verified 07/29/19 13:03 Review of Systems - Constitutional Constitutional: reports: Fatigue, Weakness, Poor appetite. denies: Fever, Chills - Cardiovascular Cariovascular: denies: Chest pain - Respiratory Respiratory: denies: SOB at rest - Gastrointestinal Gastrointestinal: denies: Abdominal pain - Neurological Neurological: reports: General weakness, Numbness, Other (Confusion). denies: Focal weakness - All Other Systems All Other Systems: reports: Other Prior Level of Functionality: She lives at home with her daughter. Unable to assess how independent she is at this time. Exam - Vital Signs Reviewed Vital Signs: Yes Vital Signs: Vital Signs x48h Temp Pulse Pulse Resp BP BP Pulse Ox 07/29/19 21:01 109/63 07/29/19 20:00 96 15 118/61 96 07/29/19 19:15 36.8 C 76 17 119/62 99 07/29/19 17:12 68 13 113/51 L 92 07/29/19 15:59 64 20 106/62 95 - Physical Exam General Appearance: positive: No acute distress, Alert Eyes Bilateral: positive: Normal inspection ENT: positive: Dry mucous membranes, Other (Nasal cannula in place) Neck: positive: Nml inspection Respiratory: positive: No respiratory distress, Other (Diminished breath sounds) Cardiovascular: positive: Regular rate & rhythm, No murmur. negative: Tachycardia, Bradycardia Abdomen: positive: Non-tender, No distention. negative: Tenderness, Guarding, Rebound Skin: positive: No rash, Warm, Dry Extremities: positive: No pedal edema Neurologic/Psychiatric: positive: Disoriented to time, Other (No focal motor deficits.). negative: Disoriented to person, Disoriented to place, Weakness, Facial droop, Slurred/abnml speech Conclusion/Plan - Problem List (1) Acute on chronic kidney failure Conclusion/Plan: Suspect this is likely pre-renal given her poor oral intake. Creatinine is elevated at 2.8, baseline is mid 1's. Complicated by hyperkalemia. Likely has CKD at baseline from diabetes. Will hydrate with IV saline. Monitor renal function and urine output. Check renal ultrasound. (2) Hyperkalemia Conclusion/Plan: Secondary to acute kidney injury as well as the use of Aldactone. No changes on her EKG. Potassium elevated at 7.2. Will continue to monitor every few hours until it begins normalize. Insulin/Dextrose as needed. Will give Kayexalate if it remains elevated. Hold aldactone. (3) Altered mental status Conclusion/Plan: She is confused on exam which is not her baseline. Suspect this likely from her elevated BUN that is nearly 100. Her urinalysis did reveal WBC's but it had a large amount of squamous cells so likely not an infection. She has no focal motor deficits so will hold off on obtaining a CT unless she does not improve as her BUN decreases. Continue IV hydration and delirium precautions. Qualifiers: Altered mental status type: disorientation Qualified Code(s): R41.0 - Disorientation, unspecified (4) Chronic respiratory failure with hypoxia Conclusion/Plan: She remains at her baseline 3L of oxygen. Her respiratory failure appears to be secondary to COPD. (5) Chronic indwelling Roldan catheter Conclusion/Plan: Chronic and was present on admission. Unclear as to why she requires the catheter. Will need to discuss with family before considering a voiding trial. (6) Diabetes mellitus type 2 in obese Conclusion/Plan: Her blood glucose is well controlled at this time. Will resume her home 70/30 insulin the AM. (7) HTN (hypertension) Conclusion/Plan: She is currently normotensive. Will hold her home antihypertensives at this time and restart when appropriate. (8) Hx of transient ischemic attack (TIA) Conclusion/Plan: She is on Xarelto at home and it appears there is a documented history of atrial fibrillation in the past. Will continue Xarelto and Atorvastatin. (9) Hypothyroidism Conclusion/Plan: Stable. Continue home Synthroid. - Lab Results Lab results reviewed: Yes Fish Bones: 07/29/19 14:32 07/30/19 04:00 - EKG Results EKG Interpreted Independently: Yes EKG Findings: Sinus rhythm with no peaked T waves or widened QRS. No ischemic changes. Core Measures - Anticipated LOS I expect patient to be DC'd or transferred within 96 hours.: Yes - Issues Hospital Issues and Management Plan: Acute kidney injury and hyperkalemia requiring inpatient treatment. - DVT/VTE - Prophylaxis VTE/DVT Device ordered at admit?: Yes
[2019-07-29 22:00] LABS: CALCIUM 8.9 mg/dL (8.5-10.3); CREATININE 2.5 mg/dL (0.4-1.0)
[2019-07-29] MEDS ORDERED: INSULIN REGULAR HUMAN 300 UNIT/3 ML VIAL SUBQ ONE (23:19)
[2019-07-29] MEDS: ZINC OXIDE 20% OINT 30 GM TUBE TOP PRN (23:27)
[2019-07-30 01:16] LABS: CALCIUM 8.8 mg/dL (8.5-10.3); CREATININE 2.6 mg/dL (0.4-1.0)
[2019-07-30] MEDS ORDERED: INSULIN REGULAR HUMAN 100 UNIT/1 ML 10 ML MDV IVP STA ×3 (01:35→18:07)
[2019-07-30] MEDS ORDERED: SODIUM POLYSTYRENE SULFONATE 15 GM/60 ML BOTTLE PO ONE ×2 (01:35→12:02)
[2019-07-30] MEDS ORDERED: DEXTROSE 10% 250 ML IV STA (01:36)
[2019-07-30] MEDS ORDERED: ALBUTEROL NEB 2.5 MG/3 ML INH ONE ×2 (01:37→18:04)
[2019-07-30] MEDS: LACTATED RINGERS 1,000 ML IV SCH ×3 (02:29→22:05)
--- NOTE | 2019-07-30 02:36 | Ultrasound Report ---
Reason: Acute kidney injury. Procedure Date: 07/30/2019 Accession Number: [id number] / [id number] Procedure: US - Retroperitoneal CPT Code: FULL RESULT: EXAM: RENAL ULTRASOUND EXAM DATE: 07/30/2019 01:15 AM. CLINICAL HISTORY: Acute kidney injury. COMPARISON: COMPLETE 11/13/2017 4:16 PM. TECHNIQUE: Real-time scanning was performed with static images obtained. FINDINGS: Right Kidney: 11.1 x 5.7 x 5.4 cm. Echogenic cortex. No hydronephrosis. Left Kidney: 11.1 x 7.0 x 6.8 cm. 7.8 x 5.8 x 5.0 cm mass in the upper medial kidney. Possible smaller adjacent mass measuring 3.5 cm. No hydronephrosis. Bladder: Not distended. Other: None. IMPRESSION: No evidence of hydronephrosis. Suspicious masses in the left kidney. Consider CT for further evaluation. RADIA
[2019-07-30] MEDS: oxyCODONE 5 MG TABLET PO PRN ×2 (03:42→20:36)
[2019-07-30] MEDS: SODIUM CHLORIDE FLUSH 0.9% 10 ML SYRINGE IVP PRN ×5 (04:28→22:05)
[2019-07-30 05:14] LABS: CALCIUM 8.7 mg/dL (8.5-10.3); CREATININE 2.5 mg/dL (0.4-1.0)
[2019-07-30] MEDS: LEVOTHYROXINE 75 MCG TABLET PO SCH (06:23)
[2019-07-30] MEDS: POLYETHYLENE GLYCOL 3350 17 GM PACKET PO SCH (09:34)
[2019-07-30] MEDS: INSULIN 70/30 HUMAN 300 UNIT/3 ML VIAL SUBQ SCH ×2 (09:35→20:43)
[2019-07-30] MEDS: SODIUM CHLORIDE FLUSH 0.9% 10 ML SYRINGE IVP SCH ×2 (09:35→13:03)
[2019-07-30 12:00] LABS: CALCIUM 8.2 mg/dL (8.5-10.3); CREATININE 2.4 mg/dL (0.4-1.0)
[2019-07-30] MEDS ORDERED: DEXTROSE 50% ABBOJECT 25 GM/50 ML SYRINGE IVP ONE (12:02)
[2019-07-30] MEDS ORDERED: INSULIN REGULAR HUMAN 300 UNIT/3 ML VIAL SUBQ SCH (12:15)
[2019-07-30] MEDS ORDERED: DEXTROSE 10% 250 ML IV SCH (12:42)
[2019-07-30] MEDS: DEXTROSE 10% 250 ML IV STA (12:43)
[2019-07-30] MEDS ORDERED: IPRATROPIUM/ALBUTEROL 3 ML NEB INH PRN (13:45)
[2019-07-30] MEDS: NYSTATIN CREAM 15 GM TUBE TOP SCH ×2 (14:46→20:46)
[2019-07-30] MEDS: ZINC OXIDE 20% OINT 30 GM TUBE TOP PRN ×2 (14:47→20:46)
[2019-07-30 17:27] LABS: CALCIUM 8.3 mg/dL (8.5-10.3); CREATININE 2.3 mg/dL (0.4-1.0)
--- NOTE | 2019-07-30 18:12 | PROVIDER PROGRESS NOTE ---
Subjective - Prog Note Date Prog Note Date: 07/30/19 Prog Note Time: 18:12 - Subjective Pt reports feeling: Improved Subjective: but her K continues to be up. Initial success with K going >5 then recheck this afternoon shows >6 Current Medications - Current Medications Current Medications: Active Medications Acetaminophen (Tylenol) 650 mg PO Q4HR PRN PRN Reason: Pain 1 to 4 Albuterol () 10 mg INH ONCE ONE Stop: 07/30/19 18:05 Albuterol/Ipratropium (Duoneb) 3 ml INH Q4HR PRN PRN Reason: Wheezing Atorvastatin Calcium (Lipitor) 40 mg PO QPM PERNELL Lactated Ringer's (Lr) 1,000 mls @ 100 mls/hr IV .Q10H PERNELL Last Admin: 07/30/19 13:00 Dose: 100 mls/hr Dextrose (D10w) 250 mls @ 250 mls/sec IV .Q1M PERNELL Insulin Human Regular (Novolin R) 10 unit IVP ONCE STA Stop: 07/30/19 18:08 Levothyroxine Sodium (Synthroid) 150 mcg PO QDAC [facility] Last Admin: 07/30/19 06:23 Dose: 150 mcg Multi-Ingredient Ointment (Zinc Oxide) 1 applic TOP PRN PRN PRN Reason: Skin Care Last Admin: 07/30/19 14:47 Dose: 1 applic Nystatin (Mycostatin Cream) 1 applic TOP BID [facility] Last Admin: 07/30/19 14:46 Dose: 1 applic Ondansetron HCl (Zofran Inj) 4 mg IVP Q6HR PRN PRN Reason: Nausea / Vomiting Ondansetron HCl (Zofran Odt) 4 mg TL Q6HR PRN PRN Reason: Nausea / Vomiting Oxycodone HCl (Roxicodone) 5 mg PO Q4HR PRN PRN Reason: Pain 5 to 7 Last Admin: 07/30/19 03:42 Dose: 5 mg Polyethylene Glycol (Miralax) 17 gm PO DAILY [facility] Last Admin: 07/30/19 09:34 Dose: Not Given Rivaroxaban (Xarelto) 15 mg PO 1700 PERNELL Sodium Chloride (Normal Saline Flush 0.9%) 10 ml IVP PRN PRN PRN Reason: NEEDED PER PROVIDER ORDERS Last Admin: 07/30/19 04:28 Dose: 10 ml Sodium Chloride (Normal Saline Flush 0.9%) 10 ml IVP 0100,0900,1700 PERNELL Last Admin: 07/30/19 13:03 Dose: 10 ml Sodium Chloride (Normal Saline Flush 0.9%) 20 ml IVP PRN PRN PRN Reason: After Blood Draw Last Admin: 07/30/19 04:28 Dose: 20 ml Atorvastatin Calcium 40 mg PO QPM 11/13/17 HYDROcod/ACETAM 5/325 [[place] 5/325] 1 tab PO TID PRN 11/13/17 Bisacodyl [Dulcolax] 5 mg PO BID PRN 11/05/18 Rivaroxaban [Xarelto] 15 mg PO QDDINNER 11/05/18 Diphenoxylate HCl/Atropine [Diphenoxylate-Atrop 2.5-0.025] 1 tab PO QID PRN 02/17/19 Nystatin 1 applic TOP BID 02/17/19 Saccharomyces Boulardii [Florastor] 250 mg PO DAILYWM 02/17/19 Ferrous Sulfate 325 mg PO DAILYWM 05/30/19 Furosemide 40 mg PO BIDDIURETIC 05/30/19 Insulin 70/30 Human [NovoLIN] 20 unit SUBQ BID 05/30/19 Ipratropium/Albuterol Sulfate [Iprat-Albut 0.5-3(2.5) mg/3 ml] 3 ml INH BID 05/30/19 Levothyroxine Sodium [Synthroid] 150 mcg PO QDAC 05/30/19 Magnesium Hydroxide [Milk of Magnesia] 2,400 mg PO QPM PRN 05/30/19 Omeprazole 20 mg PO QDAC 05/30/19 Spironolactone [Aldactone] 25 mg PO DAILY 05/30/19 amLODIPine [Norvasc] 5 mg PO BID 05/30/19 Objective - Vital Signs/Intake & Output Reviewed Vital Signs: Yes Vital Signs: Vital Signs Temp Pulse Resp BP Pulse Ox 07/30/19 17:00 36.9 C 73 17 122/53 L 98 07/30/19 16:00 36.9 C 85 16 108/44 L 95 07/30/19 15:00 81 18 124/81 H 93 Intake & Output: Intake & Output 07/27/19 07/28/19 07/29/1907/30/19 23:59 23:59 23:59 23:59 Intake Total 5077.667 2926 Output Total 350 1840 Balance 2071.667 575 - Objective General Appearance: positive: No acute distress, Other (pale, fatigued but alert to person, place and can't say why she has renal failure. Feels she tooks meds as instructed by daughter and hasn't been ill w N/V, diarrhea, etc.) Eyes Bilateral: positive: PERRL ENT: positive: Dry mucous membranes Neck: positive: No JVD Respiratory: positive: Chest non-tender, Other (diminished at bases). negative: Wheezes, Rales, Rhonchi Cardiovascular: positive: Regular rate & rhythm, Systolic murmur. negative: Gallop/S4, Friction rub Abdomen: positive: Non-tender, No organomegaly, Nml bowel sounds, No distention Skin: positive: Warm, Dry Extremities: positive: Non-tender, Pedal edema Neurologic/Psychiatric: positive: Oriented x3, CN's nml (2-12), Motor nml - Lab Results Fish Bones: 07/29/19 14:32 07/30/19 17:00 Other Labs: Lab Results x24hrs 07/30/19 07/30/19 07/30/19 Range/Units 17:00 10:32 04:00 Sodium 140 139 141 (135-145) mmol/L Potassium 6.7 H* 7.2 H* 5.9 H (3.5-5.0) mmol/L Chloride 112 H 113 H 114 H (101-111) mmol/L Carbon Dioxide 23 22 21 (21-32) mmol/L Anion Gap 5.0 L 4.0 L 6.0 (6-13) BUN 71 H 77 H 82 H* (6-20) mg/dL Creatinine 2.3 H 2.4 H 2.5 H (0.4-1.0) mg/dL Estimated GFR (MDRD) 21 L 20 L 19 L (>89) Glucose 140 H 201 H 188 H (70-100) mg/dL Calcium 8.3 L 8.2 L 8.7 (8.5-10.3) mg/dL Urine Creatinine mg/dL Urine Sodium mmol/L Urine Potassium mmol/L Nasal Screen MRSA (PCR) (NEGATIVE) 07/30/19 07/30/19 07/29/19 Range/Units 02:05 00:55 21:10 Sodium 143 142 (135-145) mmol/L Potassium 7.5 H* 7.4 H* (3.5-5.0) mmol/L Chloride 115 H 114 H (101-111) mmol/L Carbon Dioxide 23 23 (21-32) mmol/L Anion Gap 5.0 L 5.0 L (6-13) BUN 83 H* 89 H* (6-20) mg/dL Creatinine 2.6 H 2.5 H (0.4-1.0) mg/dL Estimated GFR (MDRD) 18 L 19 L (>89) Glucose 122 H 136 H (70-100) mg/dL Calcium 8.8 8.9 (8.5-10.3) mg/dL Urine Creatinine 39.0 mg/dL Urine Sodium 93.0 mmol/L Urine Potassium 14.4 mmol/L Nasal Screen MRSA (PCR) (NEGATIVE) 07/29/19 Range/Units 19:45 Sodium (135-145) mmol/L Potassium (3.5-5.0) mmol/L Chloride (101-111) mmol/L Carbon Dioxide (21-32) mmol/L Anion Gap (6-13) BUN (6-20) mg/dL Creatinine (0.4-1.0) mg/dL Estimated GFR (MDRD) (>89) Glucose (70-100) mg/dL Calcium (8.5-10.3) mg/dL Urine Creatinine mg/dL Urine Sodium mmol/L Urine Potassium mmol/L Nasal Screen MRSA (PCR) NEGATIVE (NEGATIVE) Assessment/Plan - Problem List (1) CATY (acute kidney injury) Impression: Suspect this is likely pre-renal given her poor oral intake. Creatinine is elevated at 2.8, baseline is mid 1's. Complicated by hyperkalemia. Likely has CKD at baseline from diabetes. +Will hydrate with IV saline. +Monitor renal function and urine output. +Renal ultrasound is without hydronephrosis but she has suspicious masses in the left kidney that will need to be addressed in the outpatient setting. (2) Hyperkalemia Conclusion/Plan: Secondary to acute kidney injury as well as the use of Aldactone. No changes on her EKG. Potassium elevated at 7.2. Will continue to monitor every few hours until it begins normalize. Insulin/Dextrose as needed ( she received some in ER, some on the floor last night and once this am. Even with all this K is still >6. Will redose insulin/dextrose. I have given Kayexalate as well to 30 grams and she still has not had a BM. Pharmacist cautions not to give more than 15 grams. Hold aldactone. (3) Altered mental status Conclusion/Plan: She is confused on exam which is not her baseline. Suspect this likely from her elevated BUN that is nearly 100. Her urinalysis did reveal WBC's but it had a large amount of squamous cells so likely not an infection. She has no focal mo tor deficits so will hold off on obtaining a CT since she did improve as her BUN decreases. Continue IV hydration and delirium precautions. Qualifiers: Altered mental status type: disorientation Qualified Code(s): R41.0 - Disorientation, unspecified (4) Chronic respiratory failure with hypoxia Conclusion/Plan: She remains at her baseline 3L of oxygen. Her respiratory failure appears to be secondary to COPD. (5) Chronic indwelling Bl[place] catheter Conclusion/Plan: Chronic and was present on admission. Unclear as to why she requires the catheter. Will need to discuss with family before considering a voiding trial. (6) Diabetes mellitus type 2 in obese Conclusion/Plan: Her blood glucose is well controlled at this time. Her home 70/30 insulin has been resumed. (7) HTN (hypertension) Conclusion/Plan: She is currently normotensive. Will hold her home antihypertensives at this time and restart when appropriate. (8) Hx of transient ischemic attack (TIA) Conclusion/Plan: She is on Xarelto at home and it appears there is a documented history of atrial fibrillation in the past. Will continue Xarelto and Atorvastatin. (9) Hypothyroidism Conclusion/Plan: Stable. Continue home Synthroid.
[2019-07-30] MEDS: DEXTROSE 10% 250 ML IV SCH ×5 (18:15→22:41)
[2019-07-30] MEDS: RIVAROXABAN 15 MG TABLET PO SCH (18:25)
[2019-07-30] MEDS ORDERED: INSULIN REGULAR HUMAN 100 UNIT/1 ML 10 ML MDV IVP SCH (18:36)
[2019-07-30] MEDS: ATORVASTATIN 40 MG TABLET PO SCH (20:29)
[2019-07-30 22:22] LABS: CALCIUM 8.1 mg/dL (8.5-10.3); CREATININE 2.3 mg/dL (0.4-1.0)
[2019-07-31] MEDS: oxyCODONE 5 MG TABLET PO PRN ×3 (00:39→22:52)
[2019-07-31] MEDS: SODIUM CHLORIDE FLUSH 0.9% 10 ML SYRINGE IVP SCH ×3 (05:04→16:52)
[2019-07-31] MEDS: SODIUM CHLORIDE FLUSH 0.9% 10 ML SYRINGE IVP PRN (05:04)
[2019-07-31 05:22] LABS: CALCIUM 8.5 mg/dL (8.5-10.3); CREATININE 2.2 mg/dL (0.4-1.0)
[2019-07-31] MEDS: LEVOTHYROXINE 75 MCG TABLET PO SCH (06:33)
[2019-07-31] MEDS: ZINC OXIDE 20% OINT 30 GM TUBE TOP PRN (06:36)
[2019-07-31] MEDS: NYSTATIN CREAM 15 GM TUBE TOP SCH ×2 (06:37→21:17)
[2019-07-31] MEDS: LACTATED RINGERS 1,000 ML IV SCH (06:45)
[2019-07-31] MEDS: INSULIN 70/30 HUMAN 300 UNIT/3 ML VIAL SUBQ SCH ×2 (09:57→21:11)
[2019-07-31] MEDS: POLYETHYLENE GLYCOL 3350 17 GM PACKET PO SCH ×2 (09:58→13:26)
--- NOTE | 2019-07-31 12:33 | PROVIDER PROGRESS NOTE ---
Subjective - Prog Note Date Prog Note Date: 07/31/19 - Subjective Pt reports feeling: Improved (She feels less confused this morning.) Subjective: Ms. Pillai is alert in bed this morning. She just finished eating breakfast. She believes that she is able to think more clearly today. She correctly tells me that city that she is in, as well as her name and birthday. She is unsure of the year or what brought her to the hospital. She can follow commands. Denies having any muscle cramps, palpitations or SOB. Current Medications - Current Medications Current Medications: Active Medications Acetaminophen (Tylenol) 650 mg PO Q4HR PRN PRN Reason: Pain 1 to 4 Albuterol/Ipratropium (Duoneb) 3 ml INH Q4HR PRN PRN Reason: Wheezing Last Admin: 07/30/19 21:24 Dose: 3 ml Atorvastatin Calcium (Lipitor) 40 mg PO QPM [facility] Last Admin: 07/30/19 20:29 Dose: 40 mg Lactated Ringer's (Lr) 1,000 mls @ 100 mls/hr IV .Q10H [facility] Last Admin: 07/31/19 06:45 Dose: 100 mls/hr Levothyroxine Sodium (Synthroid) 150 mcg PO QDAC [facility] Last Admin: 07/31/19 06:33 Dose: 150 mcg Multi-Ingredient Ointment (Zinc Oxide) 1 applic TOP PRN PRN PRN Reason: Skin Care Last Admin: 07/31/19 06:36 Dose: 1 applic Nystatin (Mycostatin Cream) 1 applic TOP BID [facility] Last Admin: 07/31/19 06:37 Dose: 1 applic Ondansetron HCl (Zofran Inj) 4 mg IVP Q6HR PRN PRN Reason: Nausea / Vomiting Ondansetron HCl (Zofran Odt) 4 mg TL Q6HR PRN PRN Reason: Nausea / Vomiting Oxycodone HCl (Roxicodone) 5 mg PO Q4HR PRN PRN Reason: Pain 5 to 7 Last Admin: 07/31/19 00:39 Dose: 5 mg Polyethylene Glycol (Miralax) 17 gm PO DAILY [facility] Last Admin: 07/31/19 09:58 Dose: Not Given Rivaroxaban (Xarelto) 15 mg PO 1700 [facility] Last Admin: 07/30/19 18:25 Dose: 15 mg Sodium Chloride (Normal Saline Flush 0.9%) 10 ml IVP PRN PRN PRN Reason: NEEDED PER PROVIDER ORDERS Last Admin: 07/30/19 22:05 Dose: 10 ml Sodium Chloride (Normal Saline Flush 0.9%) 10 ml IVP 0100,0900,1700 [facility] Last Admin: 07/31/19 05:04 Dose: 10 ml Sodium Chloride (Normal Saline Flush 0.9%) 20 ml IVP PRN PRN PRN Reason: After Blood Draw Last Admin: 07/31/19 05:04 Dose: 20 ml Atorvastatin Calcium 40 mg PO QPM 11/13/17 HYDROcod/ACETAM 5/325 [[place] 5/325] 1 tab PO TID PRN 11/13/17 Bisacodyl [Dulcolax] 5 mg PO BID PRN 11/05/18 Rivaroxaban [Xarelto] 15 mg PO QDDINNER 11/05/18 Diphenoxylate HCl/Atropine [Diphenoxylate-Atrop 2.5-0.025] 1 tab PO QID PRN 02/17/19 Nystatin 1 applic TOP BID 02/17/19 Saccharomyces Boulardii [Florastor] 250 mg PO DAILYWM 02/17/19 Ferrous Sulfate 325 mg PO DAILYWM 05/30/19 Furosemide 40 mg PO BIDDIURETIC 05/30/19 Insulin 70/30 Human [NovoLIN] 20 unit SUBQ BID 05/30/19 Ipratropium/Albuterol Sulfate [Iprat-Albut 0.5-3(2.5) mg/3 ml] 3 ml INH BID 05/30/19 Levothyroxine Sodium [Synthroid] 150 mcg PO QDAC 05/30/19 Magnesium Hydroxide [Milk of Magnesia] 2,400 mg PO QPM PRN 05/30/19 Omeprazole 20 mg PO QDAC 05/30/19 Spironolactone [Aldactone] 25 mg PO DAILY 05/30/19 amLODIPine [Norvasc] 5 mg PO BID 05/30/19 Objective - Vital Signs/Intake & Output Vital Signs: Vital Signs x48h Temp Pulse Resp BP Pulse Ox 07/31/19 12:00 37.2 C 68 17 112/42 L 94 07/31/19 11:00 73 17 124/47 L 93 07/31/19 10:00 74 15 124/57 L 95 07/31/19 09:00 75 17 101/36 L 100 07/31/19 08:00 36.7 C 74 15 90/36 L 97 07/31/19 07:00 80 15 121/51 L 99 07/31/19 06:00 82 15 113/62 95 07/31/19 05:00 36.9 C 77 15 105/79 97 Intake & Output: Intake & Output 07/28/19 07/29/19 07/30/19 07/31/19 23:59 23:59 23:59 23:59 Intake Total 2421.667 4393.333 1256.667 Output Total 350 2400 1560 Balance 2071.667 8998.333 -303.333 - Objective General Appearance: positive: No acute distress, Alert Eyes Bilateral: positive: Normal inspection, No lid inflammation, Conjunctivae nml ENT: positive: ENT inspection nml Neck: positive: Nml inspection, No JVD. negative: Carotid bruit, Swelling/bruising Respiratory: positive: Chest non-tender, No respiratory distress, Breath sounds nml Cardiovascular: positive: Regular rate & rhythm, No gallop. negative: Gallop /S3, Gallop/S4, Friction rub, Decreased pulse(s) Abdomen: positive: Non-tender, Nml bowel sounds, No distention. negative: Tenderness, Guarding Back: positive: Nml inspection Skin: positive: Color nml Extremities: positive: Non-tender, Nml appearance, No pedal edema. negative: Pedal edema, Calf tenderness Neurologic/Psychiatric: positive: Motor nml, Sensation nml, Mood/affect nml, Disoriented to place, Disoriented to time. negative: Facial droop, Slurred/abnml speech - Lab Results Fish Bones: 07/29/19 14:32 07/31/19 14:20 Other Labs: Lab Results x24hrs 07/31/19 07/30/19 07/30/19 Range/Units 05:00 22:01 17:00 Sodium 141 138 140 (135-145) mmol/L Potassium 5.5 H 5.8 H 6.7 H* (3.5-5.0) mmol/L Chloride 112 H 109 112 H (101-111) mmol/L Carbon Dioxide 24 22 23 (21-32) mmol/L Anion Gap 5.0 L 7.0 5.0 L (6-13) BUN 63 H 66 H 71 H (6-20) mg/dL Creatinine 2.2 H 2.3 H 2.3 H (0.4-1.0) mg/dL Estimated GFR (MDRD) 22 L 21 L 21 L (>89) Glucose 135 H 333 H 140 H (70-100) mg/dL Calcium 8.5 8.1 L 8.3 L (8.5-10.3) mg/dL ABX Reporting Has patient been on IV antibiotics over the past 48 hours?: No Assessment/Plan - Problem List (1) CATY (acute kidney injury) Impression: Acute on chronic. Likely pre-renal d/t poor PO intake. Creatinine is down from 2.5 to 1.9 today. Her baseline is around 1.5. BUN is trending down and is 63 today. CATY is complicated by hyperkalemia. An US was done upon arrival, which r uled out hydronephrosis but did locate masses in the left kidney. -BMP in the am -Continue IVF until creatinine is around baseline -Monitor for overload while on IVF -Monitor intake and output -Will need to f/u w/ nephrology as o/p regarding L kidney mass (2) Hyperkalemia Impression: Complicated by CATY as well as Aldactone use. K was 7.3 upon arrival to ED. Was on insulin/dextrose gtt, but that has been changed to LR. She received 30mg of Kayexalate yesterday and is yet to have a BM. However, her K was down to 5.5 this morning but is back up to 6 this afternoon. Her last BM was documented to be on 07/28. She was not given her Miralax this am so requested that the nurse please administer this. -As noted, BMP in the am -Hold Aldactone -Await BM (3) Altered mental status Impression: She was brought to the ED by her daughter for altered mental status, which is not her baseline. Her cognition is improving as her K and BUN trend downward. Her U/A was negative and she is not suspicious for infection. Her WBC were 5.6 upon arrival and her vitals are WNL. -Will hold off on head CT, as her cognition is improving -Continue delirium precautions Qualifiers: Altered mental status type: disorientation Qualified Code(s): R41.0 - Disorientation, unspecified (4) Chronic respiratory failure with hypoxia Impression: This appears to be secondary to COPD. She is on 3L of O2 at home. She is not hypoxemic or having s/s respiratory distress. -Supplementary O2 to keep SpO2 >88% -PRN Zia (5) Chronic indwelling Blanco catheter Impression: Was present upon arrival. Was initially placed to aid in the healing of a pressure sore which was worsened by incontinence. (6) Diabetes mellitus type 2 in obese Impression: Sugars are well controlled on current regimen -Continue 70/30 insulin per home regimen (7) HTN (hypertension) Impression: She is normotensive today. -Continue to hold BP meds for now. Qualifiers: Hypertension type: essential hypertension Qualified Code(s): I10 - Essential (primary) hypertension (9) TIA (transient ischemic attack) Impression: On Xarelto at home for TIA and a-fib. No s/s bleeding. -Continue Xarelto and Atorvastatin Qualifiers: Transient cerebral ischemia type: carotid artery syndrome (hemispheric) Qualified Code(s): G45.1 - Carotid artery syndrome (hemispheric) (10) Hypothyroidism Impression: Stable. -Continue home Synthroid
[2019-07-31 14:47] LABS: CALCIUM 8.6 mg/dL (8.5-10.3); CREATININE 1.9 mg/dL (0.4-1.0)
[2019-07-31] MEDS: COD LIVER OIL/ZINC OXIDE 113 GM TUBE TOP PRN (16:06)
[2019-07-31] MEDS: RIVAROXABAN 15 MG TABLET PO SCH (17:13)
[2019-07-31 20:19] LABS: CALCIUM 8.3 mg/dL (8.5-10.3)
[2019-07-31] MEDS ORDERED: DEXTROSE 10% 250 ML IV STA (20:20)
[2019-07-31] MEDS ORDERED: INSULIN REGULAR HUMAN 100 UNIT/1 ML 10 ML MDV IVP STA (20:20)
[2019-07-31] MEDS: ATORVASTATIN 40 MG TABLET PO SCH (21:18)
[2019-08-01] MEDS ORDERED: diphenhydrAMINE 25 MG CAPSULE PO STA (00:33)
[2019-08-01] MEDS: LACTATED RINGERS 1,000 ML IV SCH ×3 (02:51→22:14)
[2019-08-01] MEDS: SODIUM CHLORIDE FLUSH 0.9% 10 ML SYRINGE IVP SCH ×3 (02:56→16:12)
[2019-08-01 06:15] LABS: CALCIUM 8.4 mg/dL (8.5-10.3); CREATININE 1.8 mg/dL (0.4-1.0)
[2019-08-01] MEDS: LEVOTHYROXINE 75 MCG TABLET PO SCH (07:19)
[2019-08-01] MEDS: INSULIN 70/30 HUMAN 300 UNIT/3 ML VIAL SUBQ SCH ×2 (08:12→20:55)
[2019-08-01] MEDS: POLYETHYLENE GLYCOL 3350 17 GM PACKET PO SCH (08:13)
[2019-08-01] MEDS: NYSTATIN CREAM 15 GM TUBE TOP SCH ×2 (08:13→20:55)
[2019-08-01] MEDS: oxyCODONE 5 MG TABLET PO PRN ×2 (08:53→22:14)
[2019-08-01] MEDS ORDERED: LACTULOSE 10 GM /15 ML UDC PO ONE (11:00)
--- NOTE | 2019-08-01 11:49 | PROVIDER PROGRESS NOTE ---
Subjective - Prog Note Date Prog Note Date: 08/01/19 - Subjective Pt reports feeling: Improved Subjective: Ms. Pillai is feeling sleepy today. She didn't get much sleep last night. She would really like to go home but is aware that her potassium needs to normalize first. She is yet to have a BM despite taking Kayexalate and Miralax. Current Medications - Current Medications Current Medications: Active Medications Acetaminophen (Tylenol) 650 mg PO Q4HR PRN PRN Reason: Pain 1 to 4 Albuterol/Ipratropium (Duoneb) 3 ml INH Q4HR PRN PRN Reason: Wheezing Last Admin: 07/30/19 21:24 Dose: 3 ml Atorvastatin Calcium (Lipitor) 40 mg PO QPM [facility] Last Admin: 07/31/19 21:18 Dose: 40 mg Lactated Ringer's (Lr) 1,000 mls @ 100 mls/hr IV .Q10H [facility] Last Admin: 08/01/19 02:51 Dose: 100 mls/hr Levothyroxine Sodium (Synthroid) 150 mcg PO QDAC [facility] Last Admin: 08/01/19 07:19 Dose: 150 mcg Multi-Ingredient Ointment (Zinc Oxide) 1 applic TOP PRN PRN PRN Reason: Skin Care Last Admin: 07/31/19 06:36 Dose: 1 applic Nystatin (Mycostatin Cream) 1 applic TOP BID [facility] Last Admin: 08/01/19 08:13 Dose: 1 applic Ondansetron HCl (Zofran Inj) 4 mg IVP Q6HR PRN PRN Reason: Nausea / Vomiting Ondansetron HCl (Zofran Odt) 4 mg TL Q6HR PRN PRN Reason: Nausea / Vomiting Oxycodone HCl (Roxicodone) 5 mg PO Q4HR PRN PRN Reason: Pain 5 to 7 Last Admin: 08/01/19 08:53 Dose: 5 mg Polyethylene Glycol (Miralax) 17 gm PO DAILY [facility] Last Admin: 08/01/19 08:13 Dose: 17 gm Rivaroxaban (Xarelto) 15 mg PO 1700 [facility] Last Admin: 07/31/19 17:13 Dose: 15 mg Sodium Chloride (Normal Saline Flush 0.9%) 10 ml IVP PRN PRN PRN Reason: NEEDED PER PROVIDER ORDERS Last Admin: 07/30/19 22:05 Dose: 10 ml Sodium Chloride (Normal Saline Flush 0.9%) 10 ml IVP 0100,0900,1700 [facility] Last Admin: 08/01/19 08:13 Dose: 10 ml Sodium Chloride (Normal Saline Flush 0.9%) 20 ml IVP PRN PRN PRN Reason: After Blood Draw Last Admin: 07/31/19 05:04 Dose: 20 ml Zinc Oxide (Desitin) 113 gm TOP PRN PRN PRN Reason: Skin Care Last Admin: 07/31/19 16:06 Dose: 1 applic Atorvastatin Calcium 40 mg PO QPM 11/13/17 HYDROcod/ACETAM 5/325 [[place] 5/325] 0.5 - 1 tab PO TID PRN 11/13/17 Bisacodyl [Dulcolax] 5 mg PO BID PRN 11/05/18 Rivaroxaban [Xarelto] 15 mg PO QDDINNER 11/05/18 Diphenoxylate HCl/Atropine [Diphenoxylate-Atrop 2.5-0.025] 1 tab PO QID PRN 02/17/19 Nystatin 1 applic TOP BID 02/17/19 Saccharomyces Boulardii [Florastor] 250 mg PO DAILYWM 02/17/19 Ferrous Sulfate 325 mg PO DAILYWM 05/30/19 Furosemide 20 mg PO BIDDIURETIC 05/30/19 Insulin 70/30 Human [NovoLIN] 20 unit SUBQ BID 05/30/19 Ipratropium/Albuterol Sulfate [Iprat-Albut 0.5-3(2.5) mg/3 ml] 3 ml INH BID 05/30/19 Levothyroxine Sodium [Synthroid] 150 mcg PO QDAC 05/30/19 Magnesium Hydroxide [Milk of Magnesia] 2,400 mg PO QPM PRN 05/30/19 Omeprazole 20 mg PO QDAC 05/30/19 Spironolactone [Aldactone] 25 mg PO DAILY 05/30/19 amLODIPine [Norvasc] 5 mg PO BID 05/30/19 Lisinopril [Zestril] 2.5 mg PO DAILY 08/01/19 Objective - Vital Signs/Intake & Output Vital Signs: Vital Signs x48h Temp Pulse Pulse Resp BP Pulse Ox 08/01/19 11:00 70 14 132/64 H 96 08/01/19 10:00 70 15 110/55 L 93 08/01/19 09:00 77 16 136/64 H 95 08/01/19 08:30 81 16 08/01/19 08:00 94 17 147/78 H 95 08/01/19 07:00 77 15 130/62 95 08/01/19 06:00 79 17 134/69 H 95 08/01/19 05:00 70 16 137/64 H 95 08/01/19 04:00 36.7 C 65 14 119/66 94 Intake & Output: Intake & Output 07/29/19 07/30/19 07/31/19 08/01/19 23:59 23:59 23:59 23:59 Intake Total 2421.667 4393.333 3086.667 610 Output Total 350 2400 2960 1585 Balance 2071.667 1993.333 126.667 -975 - Objective General Appearance: positive: No acute distress Eyes Bilateral: positive: Normal inspection, No lid inflammation, Conjunctivae nml ENT: positive: ENT inspection nml, Pharynx nml, No signs of dehydration. negative: Purulent nasal drainage, Pharyngeal erythema, Oral lesions, Dry mucous membranes Neck: positive: Nml inspection, No JVD, Trachea midline. negative: Thyromegaly, Kernig's sign, Brudzinski's sign, Swelling/bruising, Tracheal deviation Respiratory: positive: Chest non-tender, No respiratory distress, Other (Fine crackles at bilaterl lung bases). negative: Wheezes Cardiovascular: positive: Regular rate & rhythm, No murmur, No gallop. negative: JVD present, Gallop/S4, Friction rub, Decreased pulse(s) Peripheral Pulses: 1+ Radial (R), 1+ Radial (L), 1+ Dorsalis pedis (R), 1+ Dorsalis pedis (L) Abdomen: positive: Non-tender, Nml bowel sounds, No distention. negative: Tenderness, Guarding Back: positive: Nml inspection. negative: CVA tenderness (R), CVA tenderness (L) Skin: positive: Color nml, No rash, Warm, Dry, Skin rash (Claudia area/buttocks). negative: Cyanosis, Diaphoresis, Pallor Extremities: positive: Non-tender, Full ROM, No pedal edema. negative: Calf tenderness, Joint swelling, Edgar's sign/cords Neurologic/Psychiatric: positive: CN's nml (2-12), Motor nml, Sensation nml, Mood/affect nml, Weakness. negative: Disoriented to time, Facial droop, Slurred/abnml speech, Depressed mood/affect - Lab Results Fish Bones: 07/29/19 14:32 08/01/19 06:00 Other Labs: Lab Results x24hrs 08/01/19 07/31/19 07/31/19 Range/Units 06:00 19:55 14:20 Sodium 142 141 142 (135-145) mmol/L Potassium 5.3 H 6.2 H* 6.0 H* (3.5-5.0) mmol/L Chloride 110 111 111 (101-111) mmol/L Carbon Dioxide 26 26 23 (21-32) mmol/L Anion Gap 6.0 4.0 L 8.0 (6-13) BUN 49 H 52 H 56 H (6-20) mg/dL Creatinine 1.8 H 2.0 H 1.9 H (0.4-1.0) mg/dL Estimated GFR (MDRD) 27 L 24 L 26 L (>89) Glucose 84 142 H 142 H (70-100) mg/dL Calcium 8.4 L 8.3 L 8.6 (8.5-10.3) mg/dL Assessment/Plan - Problem List (1) CATY (acute kidney injury) Impression: Acute on chronic. Likely pre-renal d/t poor PO intake. Creatinine is down a bit from 1.9 to 1.8 today. Her baseline is around 1.5. BUN is trending downward as well and is 49. She is eating now so will stop her IVF. An US was done upon arrival, which ruled out hydronephrosis but did locate masses in the left kidney. -BMP in the am -Stop IVF -Monitor intake and output -Will need to f/u w/ nephrology as o/p regarding L kidney mass (2) Hyperkalemia Impression: Complicated by CATY as well as Aldactone use. K was 7.3 upon arrival to ED. Was initially given insulin/dextrose gtt, and She received 30mg of Kayexalate 2 days ago and is yet to have a BM. However, her K was down to 5.3 this morning. Her last BM was documented to be on 07/28. She has been receiving daily Miralax but this has not been effective. -Start Lactulose today -As noted, BMP in the am -Continue to hold Aldactone until K has normalized -Await BM (3) Altered mental status Impression: She was brought to the ED by her daughter for altered mental status, which is not her baseline. Her cognition is improving as her K and BUN trend downward. Her U/A was negative and she is not suspicious for infection. Her WBC was 5.6 upon arrival and her vitals are WNL. She has been having difficulty sleeping in the hospital. -Start Melatonin at HS -Will hold off on head CT, as her cognition is improving -Continue delirium precautions Qualifiers: Altered mental status type: disorientation Qualified Code(s): R41.0 - Disorientation, unspecified (4) Chronic respiratory failure with hypoxia Impression: This appears to be secondary to COPD. She is on 3L of O2 at home. She is not hypoxemic or having s/s respiratory distress. Upon exam today, she had fine crackles in bilateral lung bases. -Encourage IS use -Ambulate patient in hallway -Supplementary O2 to keep SpO2 >88% -PRN Zia (5) Chronic indwelling Blanco catheter Impression: Was present upon arrival. Was initially placed to aid in the healing of a pressure sore which was worsened by incontinence. (6) Diabetes mellitus type 2 in obese Impression: Well controlled w/ insulin 70/30 per home regimen. -Continue insulin 70/30 (7) HTN (hypertension) Impression: BP is trending upward but we will see how she does with her IVF now stopped. Holding off on Aldactone and Lisinopril due to hyperkalemia. -Resume home Amlodipine? Qualifiers: Hypertension type: essential hypertension Qualified Code(s): I10 - Essential (primary) hypertension (8) History of anxiety Impression: Currently under control -Monitor (9) TIA (transient ischemic attack) Impression: On Xarelto at home for TIA and a-fib. No s/s bleeding. -Continue Xarelto and Atorvastatin Qualifiers: Transient cerebral ischemia type: carotid artery syndrome (hemispheric) Qualified Code(s): G45.1 - Carotid artery syndrome (hemispheric) (11) History of COPD Impression: She is currently stable. She is on 3L at home. -Continue supplemental O2 -PRN nebs (12) Chronic diastolic (congestive) heart failure Impression: Secondary to a-fib. Most recent ECHO done in 01/2019 and actually showed improvement in her EF. Most recent ECHO findings are as follows: Left ventricular size is normal. Mild to moderate concentric left ventricular hypertrophy. Overall left ventricular systolic function is normal with an EF of 55-60%. Pseudomonal LV filling pattern consistent with Grade II diastolic dysfunction. She is currently stable. We are continuing to hold some of her meds d/t hyperkalemia. -Low sodium diet -Monitor intake and output -Daily weights (13) Atrial fibrillation Impression: Rate controlled with current regimen.
[2019-08-01] MEDS: RIVAROXABAN 15 MG TABLET PO SCH (16:12)
[2019-08-01] MEDS: ATORVASTATIN 40 MG TABLET PO SCH (20:51)
[2019-08-01] MEDS: diphenhydrAMINE 25 MG CAPSULE PO PRN (22:14)
[2019-08-02 06:16] LABS: CALCIUM 8.4 mg/dL (8.5-10.3); CREATININE 1.8 mg/dL (0.4-1.0)
[2019-08-02] MEDS: LEVOTHYROXINE 75 MCG TABLET PO SCH (07:19)
[2019-08-02] MEDS: SODIUM CHLORIDE FLUSH 0.9% 10 ML SYRINGE IVP SCH ×4 (07:25→20:35)
[2019-08-02] MEDS: LACTATED RINGERS 1,000 ML IV SCH ×3 (08:27→18:01)
[2019-08-02] MEDS: NYSTATIN CREAM 15 GM TUBE TOP SCH ×2 (08:28→20:33)
[2019-08-02] MEDS: POLYETHYLENE GLYCOL 3350 17 GM PACKET PO SCH (08:28)
[2019-08-02] MEDS: INSULIN 70/30 HUMAN 300 UNIT/3 ML VIAL SUBQ SCH ×2 (08:31→20:30)
[2019-08-02] MEDS: oxyCODONE 5 MG TABLET PO PRN ×3 (08:47→23:10)
[2019-08-02] MEDS ORDERED: BISACODYL 10 MG SUPP PR STA (09:06)
[2019-08-02] MEDS: ACETAMINOPHEN 325 MG TABLET PO PRN ×2 (10:23→19:08)
--- NOTE | 2019-08-02 15:38 | PROVIDER PROGRESS NOTE ---
Subjective - Prog Note Date Prog Note Date: 08/02/19 Prog Note Time: 15:42 - Subjective Pt reports feeling: Improved Subjective: she wants to go home. but sagrario hadn't had a BM in spiteof kayexalte, miralax and today I have her dulcolax suppositry w sucess ACP done with daughter at bedside. See under separate discussion. Current Medications - Current Medications Current Medications: Active Medications Acetaminophen (Tylenol) 650 mg PO Q4HR PRN PRN Reason: Pain 1 to 4 Last Admin: 08/02/19 10:23 Dose: 650 mg Albuterol/Ipratropium (Duoneb) 3 ml INH Q4HR PRN PRN Reason: Wheezing Last Admin: 07/30/19 21:24 Dose: 3 ml Atorvastatin Calcium (Lipitor) 40 mg PO QPM [facility] Last Admin: 08/01/19 20:51 Dose: 40 mg Diphenhydramine HCl (Benadryl) 25 mg PO QPM PRN PRN Reason: Insomnia Last Admin: 08/01/19 22:14 Dose: 25 mg Lactated Ringer's (Lr) 1,000 mls @ 100 mls/hr IV .Q10H [facility] Last Admin: 08/02/19 11:00 Dose: Not Given Levothyroxine Sodium (Synthroid) 150 mcg PO QDAC [facility] Last Admin: 08/02/19 07:19 Dose: 150 mcg Multi-Ingredient Ointment (Zinc Oxide) 1 applic TOP PRN PRN PRN Reason: Skin Care Last Admin: 07/31/19 06:36 Dose: 1 applic Nystatin (Mycostatin Cream) 1 applic TOP BID [facility] Last Admin: 08/02/19 08:28 Dose: 1 applic Ondansetron HCl (Zofran Inj) 4 mg IVP Q6HR PRN PRN Reason: Nausea / Vomiting Ondansetron HCl (Zofran Odt) 4 mg TL Q6HR PRN PRN Reason: Nausea / Vomiting Oxycodone HCl (Roxicodone) 5 mg PO Q4HR PRN PRN Reason: Pain 5 to 7 Last Admin: 08/02/19 13:16 Dose: 5 mg Polyethylene Glycol (Miralax) 17 gm PO DAILY [facility] Last Admin: 08/02/19 08:28 Dose: 17 gm Rivaroxaban (Xarelto) 15 mg PO 1700 [facility] Last Admin: 08/01/19 16:12 Dose: 15 mg Sodium Chloride (Normal Saline Flush 0.9%) 10 ml IVP PRN PRN PRN Reason: NEEDED PER PROVIDER ORDERS Last Admin: 07/30/19 22:05 Dose: 10 ml Sodium Chloride (Normal Saline Flush 0.9%) 10 ml IVP 0100,0900,1700 [facility] Last Admin: 08/02/19 08:28 Dose: 10 ml Sodium Chloride (Normal Saline Flush 0.9%) 20 ml IVP PRN PRN PRN Reason: After Blood Draw Last Admin: 07/31/19 05:04 Dose: 20 ml Zinc Oxide (Desitin) 113 gm TOP PRN PRN PRN Reason: Skin Care Last Admin: 07/31/19 16:06 Dose: 1 applic Atorvastatin Calcium 40 mg PO QPM 11/13/17 HYDROcod/ACETAM 5/325 [[place] 5/325] 0.5 - 1 tab PO TID PRN 11/13/17 Bisacodyl [Dulcolax] 5 mg PO BID PRN 11/05/18 Rivaroxaban [Xarelto] 15 mg PO QDDINNER 11/05/18 Diphenoxylate HCl/Atropine [Diphenoxylate-Atrop 2.5-0.025] 1 tab PO QID PRN 02/17/19 Ferrous Sulfate 325 mg PO DAILYWM 05/30/19 Furosemide 20 mg PO BIDDIURETIC 05/30/19 Insulin 70/30 Human [NovoLIN] 20 unit SUBQ BID 05/30/19 Ipratropium/Albuterol Sulfate [Iprat-Albut 0.5-3(2.5) mg/3 ml] 3 ml INH BID 05/30/19 Levothyroxine Sodium [Synthroid] 150 mcg PO QDAC 05/30/19 Magnesium Hydroxide [Milk of Magnesia] 2,400 mg PO QPM PRN 05/30/19 Omeprazole 20 mg PO QDAC 05/30/19 Spironolactone [Aldactone] 25 mg PO DAILY 05/30/19 amLODIPine [Norvasc] 5 mg PO BID 05/30/19 Lisinopril [Zestril] 2.5 mg PO DAILY 08/01/19 Objective - Vital Signs/Intake & Output Reviewed Vital Signs: Yes Vital Signs: Vital Signs x48h Temp Pulse Resp BP BP Pulse Ox 08/02/19 15:00 73 18 140/84 H 100 08/02/19 14:00 68 15 124/64 100 08/02/19 13:00 84 18 129/66 93 08/02/19 12:00 82 13 133/66 H 95 08/02/19 11:00 92 21 134/72 H 100 08/02/19 10:00 83 14 132/68 H 96 08/02/19 09:00 98 14 139/81 H 100 08/02/19 08:12 36.8 C 104 H 20 107/93 H 96 Intake & Output: Intake & Output 07/30/19 07/31/19 08/01/19 08/02/19 23:59 23:59 23:59 23:59 Intake Total 4393.333 3086.667 4058.334 2070 Output Total 2400 2960 3355 1238 Balance 1993.333 126.667 703.334 832 - Objective General Appearance: positive: No acute distress, Alert, Other (sitting up in chair) Eyes Bilateral: positive: PERRL ENT: positive: No signs of dehydration Neck: positive: No JVD Respiratory: positive: Chest non-tender. negative: Wheezes, Rales, Rhonchi Cardiovascular: positive: Regular rate & rhythm, Systolic murmur. negative: Gallop/S4, Friction rub Abdomen: positive: Other (hugely obese panus, with brigida of under breasts, panus and buttocks) Skin: positive: Other (entire buttocks, gluteal folds, up beyond iliac crests are covered in red, flat, nonblanching rash) Extremities: positive: No pedal edema. negative: Full ROM (left knee is contracted from OA and not moving it) Neurologic/Psychiatric: positive: Oriented x3, CN's nml (2-12) - Lab Results Fish Bones: 07/29/19 14:32 08/02/19 05:55 Other Labs: Lab Results x24hrs 08/02/19 Range/Units 05:55 Sodium 143 (135-145) mmol/L Potassium 5.3 H (3.5-5.0) mmol/L Chloride 111 (101-111) mmol/L Carbon Dioxide 27 (21-32) mmol/L Anion Gap 5.0 L (6-13) BUN 37 H (6-20) mg/dL Creatinine 1.8 H (0.4-1.0) mg/dL Estimated GFR (MDRD) 27 L (>89) Glucose 88 (70-100) mg/dL Calcium 8.4 L (8.5-10.3) mg/dL ABX Reporting Has patient been on IV antibiotics over the past 48 hours?: No Assessment/Plan - Problem List (1) CATY (acute kidney injury) Impression: Acute on chronic. Likely pre-renal d/t poor PO intake as well as medication reaction Creatinine: 2.3 >2.2 >1.9>2.0 >1.8 >1.8 66 >63 >56 >52 >49 >37 She is eating now so IVF stopped. An US was done upon arrival, which ruled out hydronephrosis but did locate masses in the left kidney. -BMP daily -Monitor intake and output -Will need to f/u w/ nephrology as o/p regarding L kidney mass (2) Hyperkalemia Impression: Complicated by CATY, Lisinopril and Aldactone use. K was 7.3 upon arrival to ED. Was initially given insulin/dextrose gtt, and She received 30mg of Kayexalate 2 days ago and is yet to have a BM. However, her K was down to 5.3 yesterday and this morning. Her last BM was documented to be on 07/28. She has been receiving daily Miralax but this has not been effective. Given dulcolax this am with sucess. recheck this afternoon K (3) Altered mental status Impression: She was brought to the ED by her daughter for altered mental status, which is not her baseline. Her cognition is improving as her K and BUN trend downward. Her U/A was negative and she is not suspicious for infection. Her WBC was 5.6 upon arrival and her vitals are WNL. She has been having difficulty sleeping in the hospital. This am she is back to baseline. Alert, sitting up in chair, wants to go home Qualifiers: Altered mental status type: disorientation Qualified Code(s): R41.0 - Disorientation, unspecified (4) Chronic respiratory failure with hypoxia Impression: This appears to be secondary to COPD. She is on 3L of O2 at home. She is not hypoxemic or having s/s respiratory distress. -Encourage IS use -Ambulate patient in room -Supplementary O2 to keep SpO2 >88% -PRN Duonebs (5) Chronic indwelling Blanco catheter Impression: Was present upon arrival. Was initially placed to aid in the healing of a pressure sore which was worsened by incontinence. (6) Diabetes mellitus type 2 in obese Impression: Well controlled w/ insulin 70/30 per home regimen. -Continue insulin 70/30 (7) HTN (hypertension) Impression: BP is trending upward but we will see how she does with her IVF now stopped. H olding off on Aldactone and Lisinopril due to hyperkalemia. -Resume home Amlodipine? Qualifiers: Hypertension type: essential hypertension Qualified Code(s): I10 - Essential (primary) hypertension (8) History of anxiety Impression: Currently under control -Monitor (9) TIA (transient ischemic attack) Impression: On Xarelto at home for TIA and a-fib. No s/s bleeding. -Continue Xarelto and Atorvastatin Qualifiers: Transient cerebral ischemia type: carotid artery syndrome (hemispheric) Qualified Code(s): G45.1 - Carotid artery syndrome (hemispheric) (11) History of COPD Impression: She is currently stable. She is on 3L at home. -Continue supplemental O2 -PRN nebs (12) Chronic diastolic (congestive) heart failure Impression: Most recent ECHO done in 01/2019 and actually showed improvement in her EF. Most recent ECHO findings are as follows: Left ventricular size is normal. Mild to moderate concentric left ventricular hypertrophy. Overall left ventricular systolic function is normal with an EF of 55-60%. Pseudomonal LV filling pattern consistent with Grade II diastolic dysfunction. She is currently stable. We are continuing to hold some of her meds d/t hyperkalemia. I doubt I will resume aldactone or lisinpril and she will need lasix. -Low sodium diet to continue -Monitor intake and output -Daily weights (13) Atrial fibrillation Impression: Rate controlled with current regimen. (14) Brigida Impression: Long talk with her and daughter about hygeine. She only showers once a week and because she became ill this time, had not had a shower in over 2 weeks. Daughter was afraid she would fall. I also spoke about getting out of a chair. She sits all day long. Aim for shower 2-3 times a week. Get up out of chair if only to lay on one side of body, then up in chair then up to other side of body. (7) HTN (hypertension) Qualifiers: Hypertension type: essential hypertension Qualified Code(s): I10 - Essential (primary) hypertension (9) TIA (transient ischemic attack) Qualifiers: Transient cerebral ischemia type: carotid artery syndrome (hemispheric) Qualified Code(s): G45.1 - Carotid artery syndrome (hemispheric)
[2019-08-02] MEDS: RIVAROXABAN 15 MG TABLET PO SCH (16:24)
[2019-08-02 16:41] LABS: CALCIUM 8.5 mg/dL (8.5-10.3); CREATININE 1.8 mg/dL (0.4-1.0)
--- NOTE | 2019-08-02 18:19 | ADVANCE CARE PLANNING NOTE ---
Advance Care Planning - Planning Encounter Date: 08/02/19 Time: 14:00 Purpose: establish goals of care in face of 7 hospitalizations in 10 months Parties in Attendance: patient, daughter, hospitalist Decisional Capacity of the Patient: intact. On admission had confusion and encephalopathy from dehydration. Now that well-hydrated, acute kidney injury resolving, she is at baseline. Daughter defers to mother's decisions with regards to what kind of care she wants. - Diagnosis for Encounter (1) Acute on chronic kidney failure Qualifiers: Acute renal failure type: unspecified Chronic kidney disease stage: stage 4 (severe) Qualified Code(s): N17.9 - Acute kidney failure, unspecified; N18.4 - Chronic kidney disease, stage 4 (severe) - Encounter Subjective/Patient's Story: She is a retired [employer] who has had quite a bit of leg pain, knee pain that is developed over the course of her life from standing on concrete floors for most of her career. When she became in 2013, she was living in [place]. She had fallen a couple of times. Became hospitalized with pneumonia. Daughter felt that it was time that mom come live with her here and [place]. She has been living with her daughter since that time. She started using a walker in 2013. She is progressed to using a wheelchair if she has to walk any distance greater than a few feet. Lack of mobility is due to severe morbid obesity with a huge abdominal pannus, chronic diastolic heart failure, and knee pain. She leads a mainly sedentary existence at her daughter's house. She does get up with her walker to walk to a bathroom, or to a dining room table. Sometimes she has enough energy to walk on the patio and sit outside. She has been hospitalized [address] [facility]. Some of it was from respiratory issues from probable obstructive sleep apnea, or obesity hypoventilation syndrome resulting in hypoxia. She is on nasal cannula oxygen at home. Heart failure has been treated with diuretics and beta-blockers and she is on combined Lasix and Aldactone. Because of urinary incontinence she developed significant skin breakdown in her perineum and buttocks and has a chronic indwelling Roldan. She is been hospitalized for UTIs. With this hospitalization, she really does not know what happened. She feels like she has been eating normally, drinking normally and her daughter gives her her pills. But daughter gently remind her that she really does not drink the water this put in front of her. She was severely dehydrated, encephalopathic, and hyperkalemia up to over 7. Now that she has had treatment, her mental status is back to baseline. She is alert, watching TV. Eating her food. And will drink the water that is put in front of her when prompted by nursing. She is adamant that she will never live in a care home facility. She is already been it for [facility] for temporary care and rehab and never wants to return to those facilities. Daughter respect that decision and takes care of mom at home. But sometimes daughter does not bathe mom because mom gets weak in the legs, and she does not want her to fall. So she has not had a bath in 2 weeks and had quite a bit of body odor. She also has significant diaper rash of all of her buttocks, gluteal fold, and intertriginous folds of her perineum and groin. She has been seen by palliative care once. She really has not changed her mind since then. She is not interested in transitioning toward palliative/hospice care. She still wants to keep on coming to the hospital when she needs to. While she is a DO NOT RESUSCITATE, she still wants all measures done such as BiPAP, antibiotics, IV fluids, transfusions when needed, etc. Objective/Medical Story: This is a 74 year old female with a past medical history significant for atrial fibrillation (on Xarelto), chronic respiratory failure (on 3L), COPD, chronic indwelling roldan catheter who presents from home today because she is sick. She reports that her daughter told her that "she looks sick" and so she brought her to the ER today. Patient reports feeling weak and has had poor oral intake over the last week. She also believes she has had decreased urine output via her roldan catheter but is not sure how long that has been going on for. She reports feeling sleepy and confused. She is unable to go into detail when asked review of systems questions and keeps saying that she is sick. In the emergency department, she was found to have abnormal renal function as well as an elevated potassium of 7.2. She received insulin, dextrose, and calcium gluconate. Medicine was consulted for admission given her acute kidney injury and hyperkalemia. There is no family present at bedside at this time and the patient is altered. Her POLST form states that she is a DNR and so he has her prior admissions and there she will be made a DNR at this time until it is confirmed by the family or the patient. History - Past Medical History Cardiovascular: reports: Congestive heart failure, Hypertension, Coronary artery disease, [place] Respiratory: reports: COPD, Emphysema, CPAP use, Other Neuro: reports: Migraines Endocrine/Autoimmune: reports: Type 2 diabetes, HyPOthyroidism GI: reports: GERD, Chronic constipation, Hemorrhoids GARBAGE WORKER: reports: None : reports: Incontinence, Indwelling catheter HEENT: reports: Chronic sinusitis, Chronic hearing loss Psych: reports: Depression, Anxiety Musculoskeletal: reports: Osteoarthritis, Chronic back pain Derm: reports: Other Goals of Care: 1. She wants to remain in her home with her daughter. They have walker, wheelchair, handicap accessible apartment on the ground floor. Daughter agrees to that. 2. She needs to increase her strength and endurance if she wants to stay safely within that apartment. The fact that she is so weak that she has not had a bath in 2 weeks only leads to more skin breakdown and more danger to her with regards to risk of infection. 3. She will need to follow-up with her primary care provider for medication adjustment. We are stopping lisinopril, Aldactone because of hyperkalemia. She will also need follow-up for kidney masses seen on ultrasound. Plan: 1. Leg exercises taught to the patient. Mainly focusing on increasing quadriceps strength. She was also taught sitting exercises to increase hamstring and buttock strength. I am asking her to do the rubber band exercises that she learned at physical therapy in [place]. I will also ask for HH PT to go by 2x a week. 2. She has to take a shower 3 times a week. Add a bath aide with HH. 3. If she feels that she is deteriorating beyond her desired quality of life, to please let her daughter know so that we can resume palliative care consultation. Code Status: Do Not Attempt Resuscitation Time spent on advance care plannin
[2019-08-02] MEDS: ATORVASTATIN 40 MG TABLET PO SCH (20:26)
[2019-08-02] MEDS: COD LIVER OIL/ZINC OXIDE 113 GM TUBE TOP PRN (20:32)
[2019-08-02] MEDS: diphenhydrAMINE 25 MG CAPSULE PO PRN (23:12)
[2019-08-03] MEDS: LACTATED RINGERS 1,000 ML IV SCH (02:47)
[2019-08-03] MEDS: SODIUM CHLORIDE FLUSH 0.9% 10 ML SYRINGE IVP PRN ×2 (04:10→04:11)
[2019-08-03] MEDS: oxyCODONE 5 MG TABLET PO PRN (04:55)
[2019-08-03 05:04] LABS: CREATININE 1.6 mg/dL (0.4-1.0)
[2019-08-03 05:13] LABS: CALCIUM 8.3 mg/dL (8.5-10.3)
--- NOTE | 2019-08-03 07:12 | Discharge Plan ---
Discharge Plan Problem Reviewed?: Yes Disposition: Home Health Service Condition: Good Prescriptions: Nystatin Cream [Mycostatin Cream] 1 applic TOP BID #3 tube Sod Polystyrene Sulf. [Kayexalate] 15 gm PO DAILY #1 bottle Diet: Low Sodium Activity Restrictions: Activity as Tolerated Shower Restrictions: No Driving Restrictions: Yes (no driving) Assistance Devices: Wheelchair, Walker Health Concerns: You presented to our emergency room with a history of atrial fibrillation on Xarelto, chronic respiratory failure requiring oxygen at home, chronic indwelling Blanco catheter because of urinary incontinence causing your skin to breakdown, as well as chronic congestive heart failure. You have severely diminished mobility because of your weight, and arthritis in your knees. You are followed by home health once a week for physical therapy. You take a bath once a week. You had not been feeling well for a week. You had not been eating much, and had not been drinking very much. Your daughter reported that you were feeling very confused, and getting sleepier. All you could say was that you were "sick". We found you to have renal failure with a very elevated of potassium to 7.2.We also found you to have a diffuse diaper rash covering your entire buttocks, back severe thighs. Because you not had a bath in 2 weeks you were fairly malodorous. Plan of Treatment: 1. You received quite a bit of medication to bring your potassium down. Those medications are highly concentrated glucose followed by IV insulin, Kayexalate, high-dose albuterol, and calcium gluconate. Your potassium started at 7.2. Today your potassium is 5.1. 2. Because lisinopril can interact with Aldactone to cause a high potassium, I am not resuming these medications and you. You do have a history of congestive heart failure but your last echocardiogram in January 2019 showed you to have substantial improvement in your muscle function that it is almost normal. You may not need these medications in the future. 3. Although I am not stopping your Norvasc and metoprolol, I do not want you to take them for a while. Your blood pressure has come down without any medication at all. You may be able to come off some of these medicines as well. Check your blood pressure and pulse every day and resume the Norvasc if your blood pressure is greater than 140/90, resume metoprolol if your pulse is greater than 90 4. We were looking at your kidneys for obstruction, and 1 of our x-ray showed you to have a mass in your left kidney. It is not clear what the masses. We cannot do a CAT scan at this time. A CAT scan would require a dye study and your kidneys would not tolerate it. Care Goals: 1. Please see your primary care provider, Dr. Metcalf, in the next week. 2. Take daily pulse and blood pressure readings to Dr. Metcalf for him to review. Pl;ease also take this sheet for him to read. 3. He needs to know what these are because he will need to figure out when to resume Norvasc and metoprolol for you. 4. He will need to check a BMP which checks your BUN, creatinine, and potassium for kidney function 5. He will need to order a CAT scan of your kidneys which requires dye, once your BUN and creatinine are normal. In order to prevent your kidneys from having further damage from CAT scan dye, he may need to use acetylcysteine or a bicarbonate infusion before your CAT scan. 6. Please take a bath 3 times a week. While you were, here we found quite a bit of diaper rash from where you are sitting for way too long in one position.I have ordered nystatin cream for the rash. 7. I am asking physical therapy/home health to see you twice a week for physical therapy, and bath aide 8. We discussed some leg exercises that could strengthen your legs. This will allow you to be more safely mobile in your home so that you can get in and out of the bathroom/shower and your daughter does not have to worry about you falling. 9. We talked about you seeing a [facility] consultant called palliative care. At this time you are still interested in coming to the hospital whenever you need to. You feel like you do not need palliative care at this time. 10. Take Kayexalate once a day for 3 more days to lower your potassium. Assessment: patient and daughter express understanding of goals and will follow thru Follow-Up Care: Home Health - RN, Home Health - PT No Smoking: If you smoke, Please STOP! Call for help. Follow-up with: Jose Luis Metcalf MD [Primary Care Provider] -
[2019-08-03] MEDS: LEVOTHYROXINE 75 MCG TABLET PO SCH (08:08)
[2019-08-03] MEDS: INSULIN 70/30 HUMAN 300 UNIT/3 ML VIAL SUBQ SCH (08:53)
[2019-08-03 12:22] VITALS: BP 128/61
--- NOTE | 2019-08-03 16:19 | DISCHARGE SUMMARY ---
Discharge Summary Admit Date: 07/29/19 Discharge Date: 08/03/19 Discharging Provider: Tracey Landrum MD Primary Care Provider: Jose Luis Metcalf MD Code Status: Do Not Attempt Resuscitation Condition at Discharge: Good [facility]charge [facility] - DIAGNOSES Discharge Diagnoses with Status of Each Condition: 1. Acute on chronic kidney failure 2. Hyperkalemia 3. Metabolic encephalopathy 4. Chronic respiratory failure with hypoxia 5. Chronic indwelling Roldan catheter 6. Diabetes mellitus, type II, controlled without complications, on long-term insulin 7. Hypertension 8. Hypothyroidism 9. Side effect of medication 10. Chronic atrial fibrillation 11. Chronic diastolic congestive heart failure 12. Svetlana intertrigo 13. Abnormal ultrasound of abdomen with renal masses - HPI History of Present Illness: This is a 74 year old female with a past medical history significant for atrial fibrillation (on Xarelto), chronic respiratory failure (on 3L), COPD, chronic indwelling roldan catheter who presents from home today because she is sick. She reports that her daughter told her that "she looks sick" and so she brought her to the ER today. Patient reports feeling weak and has had poor oral intake over the last week. She also believes she has had decreased urine output via her roldan catheter but is not sure how long that has been going on for. She reports feeling sleepy and confused. She is unable to go into detail when asked review of systems questions and keeps saying that she is sick. In the emergency department, she was found to have abnormal renal function as well as an elevated potassium of 7.2. She received insulin, dextrose, and calcium gluconate. Medicine was consulted for admission given her acute kidney injury and hyperkalemia. There is no family present at bedside at this time and the patient is altered. Her POLST form states that she is a DNR and so he has her prior admissions and there she will be made a DNR at this time until it is confirmed by the family or the patient. - Past Medical History Cardiovascular: reports: Congestive heart failure w EF 35% in the past, Hypertension, Coronary artery disease, [place] Respiratory: reports: COPD, CPAP use, Pulmonary HTN on Echo Neuro: reports: Migraines Endocrine/Autoimmune: reports: Type 2 diabetes, HyPOthyroidism GI: reports: GERD, Chronic constipation, Hemorrhoids AGENT BASED MODELER: reports: None : reports: Incontinence, Indwelling catheter HEENT: reports: Chronic sinusitis, Chronic hearing loss Psych: reports: Depression, Anxiety Musculoskeletal: reports: Osteoarthritis with terrible knee pain, Chronic back pain, lack of mobility Derm: reports: Other - CONSULTS | PROCEDURES Procedures: 1. Mild pulmonary edema, stable enlargement of cardiomediastinal silhouette. No focal opacities. 2. Retroperitoneal ultrasound without evidence of hydronephrosis. She does have suspicious masses in the left kidney. - HOSPITAL COURSE Hospital Course: She was placed in the intensive care unit because of severe hyperkalemia. Potassium started at 7.2 and went as high as 7.5 even with Kayexalate, D10 followed by IV insulin, calcium gluconate (there is a shortage of D50 that pharmacy doesn't have). On the day of discharge she was finally down to 5.1 and was consistently going down. We think that her hyperkalemia was a combination of lisinopril, Aldactone, dehydration. As such her lisinopril and Aldactone cannot be resumed. She will go home on 3 days of kayexalate. During her stay she was consistently hypotensive. Her usual home medications of Norvasc, Lasix, metoprolol and lisinopril were held. Throughout her stay we monitored her for acute congestive heart failure since she has a history of an ejection fraction of 45 to 50% in November 2017. She has moderate pulmonary hypertension on that echocardiogram as well. With this stay, we reviewed her echo from January 2019 and her ejection fraction had improved up to 60 to 65%. She had some grade 1 diastolic dysfunction. Moderately elevated pulmonary pressures with an RVSP of 62 mmHg. She tolerated her IV fluids during the stay without going to congestive heart failure. We did not resume her usual medications because of the low blood pressure. We are asking her to follow-up with her primary care provider, Dr. Metcalf. We would like her to take her blood pressure and pulse every day and write it down for him. He can then evaluate them in the office and decide if Norvasc or metoprolol can be resumed. She continues to have chronic respiratory failure with hypoxia from a combi nation of COPD and most likely obstructive sleep apnea. She is immobile. Very difficult for her to get around on her own. I sat down with her at length to make sure that she felt she was still really wanted to go home with her daughter. She describes a life where she is immobile and sits quite a bit. When she came into the ER, she had not had a bath for 2 weeks, horrific diaper rash of her buttocks was present, and she was very malodorous. She has HH nurse once a month and PT once a week. No bath aide. We are asking that home health increase their visits to her with PT and bath aid. She has unacceptable skin breakdown. She is sent home with nystatin. Metabolic encephalopathy resolved once her potassium was normal and her chronic respiratory failure was treated. She leaves with a chronic indwelling Roldan as she came in. Diabetes was controlled during her stay and in fact hypoglycemic episode and points on her usual 70/30 insulin. She may need to reduce that medication as well. Chronic atrial fibrillation was rate controlled and she was maintained on anticoagulation. We did do an abdominal ultrasound looking for hydronephrosis and she did not have hydronephrosis but did have abnormal masses in her left kidney. Unfortunately we were not able to do a CT scan of her ki dney because of her kidney failure. Radiology recommends that we wait for her creatinine to drift back into her normal range. Prophylactically treated with either acetylcysteine or bicarbonate infusion prior to his CT with IV dye for her kidneys. MRI is contraindicated because of her pacer and her renal failure. At discharge she is a 5 foot 6 inch of 115 kg elderly woman. Most of her weight is centripetal around her belly and chest with thin arms and legs. She ambulates with a 1 person assist. Legs are very stiff underneath her and left knee is contracted. She has no JVD. Slightly prolonged and exhalation respiratory phase but clear to auscultation without crackles rhonchi wheezing. Slight increased respiratory effort with getting up and trying to mobilize herself out of the wheelchair to get outside the hospital. PMI is normally placed with a regular rate and rhythm. The abdomen is obese, soft, nontender. The very dense, thick red rash that was overall of her buttocks, gluteal folds and perineum has improved substantially since she has been bathed here. But it is still present and will need nystatin. No clubbing cyanosis or edema in the ankles. Again thin ankles, calves, contracted left knee when she tries to stand. Greater than 30 minutes was spent coordinating discharge. - ALLERGIES Allergies/Adverse Reactions: Allergies Allergy/AdvReac Type Severity Reaction Status Date / Time No Known Drug Allergies Allergy Verified 07/29/19 13:03 - MEDICATIONS Home Medications: Ambulatory Orders Medication Instructions Recorded Confirmed Atorvastatin Calcium 40 mg PO QPM 11/13/17 08/02/19 HYDROcod/ACETAM 5/325 [[place] 5/325] 0.5 - 1 tab PO TID PRN 11/13/17 08/02/19 Bisacodyl [Dulcolax] 5 mg PO BID PRN 11/05/18 08/02/19 Rivaroxaban [Xarelto] 15 mg PO QDDINNER 11/05/18 08/02/19 Diphenoxylate HCl/Atropine 1 tab PO QID PRN 02/17/19 08/02/19 [Diphenoxylate-Atrop 2.5-0.025] Ferrous Sulfate 325 mg PO DAILYWM 05/30/19 08/02/19 Insulin 70/30 Human [NovoLIN] 20 unit SUBQ BID 05/30/19 08/02/19 Ipratropium/Albuterol Sulfate 3 ml INH BID 05/30/19 08/02/19 [Iprat-Albut 0.5-3(2.5) mg/3 ml] Levothyroxine Sodium [Synthroid] 150 mcg PO QDAC 05/30/19 08/02/19 Magnesium Hydroxide [Milk of 2,400 mg PO QPM PRN 05/30/19 08/02/19 Magnesia] Omeprazole 20 mg PO QDAC 05/30/19 08/02/19 Furosemide 20 mg PO BIDDIURETIC #0 08/03/19 08/02/19 Metoprolol Succinate [Toprol Xl] 50 mg PO DAILY #60 tablet 08/03/19 08/02/19 Nystatin Cream [Mycostatin Cream] 1 applic TOP BID #3 tube 08/03/19 Sod Polystyrene Sulf. [Kayexalate] 15 gm PO DAILY #1 bottle 08/03/19 amLODIPine [Norvasc] 5 mg PO BID #0 08/03/19 08/02/19 - LABS Result Diagrams: 07/29/19 14:32 08/03/19 04:15
== END 2019-08-03 13:11 | disposition home health service (06) | DRG 682 ==
LOC: EDUNIT# → ED 12:55 → ICU 17:56
PROVIDERS: ADMIT Specialist; ATTEND Specialist
DX: N17.9 Acute kidney failure, unspecified (principal); N30.00 Acute cystitis without hematuria; G93.41 Metabolic encephalopathy; I11.0 Hypertensive heart disease with heart failure; I50.9 Heart failure, unspecified; I13.0 Hypertensive heart and chronic kidney disease with heart failure and stage 1 through stage 4 chronic kidney disease, or unspecified chronic kidney disease; I48.91 Unspecified atrial fibrillation; R33.9 Retention of urine, unspecified; I50.32 Chronic diastolic (congestive) heart failure; E11.9 Type 2 diabetes mellitus without complications; J96.11 Chronic respiratory failure with hypoxia; I48.20 Chronic atrial fibrillation, unspecified; K59.09 Other constipation; B37.49 Other urogenital candidiasis; Z68.41 Body mass index [BMI] 40.0-44.9, adult; G47.33 Obstructive sleep apnea (adult) (pediatric); E87.5 Hyperkalemia; E11.22 Type 2 diabetes mellitus with diabetic chronic kidney disease; N18.9 Chronic kidney disease, unspecified; E11.649 Type 2 diabetes mellitus with hypoglycemia without coma; E86.0 Dehydration; J43.9 Emphysema, unspecified; E03.9 Hypothyroidism, unspecified; E66.01 Morbid (severe) obesity due to excess calories; I25.10 Atherosclerotic heart disease of native coronary artery without angina pectoris; R32 Unspecified urinary incontinence; F41.9 Anxiety disorder, unspecified; K21.9 Gastro-esophageal reflux disease without esophagitis; J32.9 Chronic sinusitis, unspecified; H91.90 Unspecified hearing loss, unspecified ear; M19.90 Unspecified osteoarthritis, unspecified site; G89.29 Other chronic pain; M54.9 Dorsalgia, unspecified; Z74.09 Other reduced mobility; M24.562 Contracture, left knee; M25.569 Pain in unspecified knee; R93.429 Abnormal radiologic findings on diagnostic imaging of unspecified kidney; Z66 Do not resuscitate; Z99.81 Dependence on supplemental oxygen; Z79.891 Long term (current) use of opiate analgesic; Z79.01 Long term (current) use of anticoagulants; Z79.4 Long term (current) use of insulin; Z79.51 Long term (current) use of inhaled steroids; Z86.73 Personal history of transient ischemic attack (TIA), and cerebral infarction without residual deficits; Z87.891 Personal history of nicotine dependence; Z87.440 Personal history of urinary (tract) infections; Z95.0 Presence of cardiac pacemaker; I25.2 Old myocardial infarction
CPT/HCPCS: 36415; 36556; 51702; 71045; 76770; 80048; 80053; 81001; 82570; 83690; 83880; 84133; 84300; 85025; 85610; 87150; 93005; 94640; 96365; 99285; A9270; J1815; J3490; J7120; 87086

== ENCOUNTER 2019-11-02 19:56 | Outpatient (CLI) | payer MEDICARE, OTHER | END 2019-11-02 19:57 | disposition critical access hospital (66) | LOC: EMS 19:56 | PROVIDERS: ATTEND Surgery | DX: R53.1 Weakness (principal) | CPT/HCPCS: A0425; A0427 ==

== ENCOUNTER 2019-11-02 20:10 | Emergency (ER) | payer MEDICARE, OTHER ==
--- NOTE | 2019-11-02 20:16 | ED Physician Documentation ---
History of Present Illness - Stated complaint Stated Complaint: WEAKNESS - History obtained from History obtained from: Patient (Patient is a very pleasant 74-year-old female who presents via EMS with a chief complaint of weakness and shortness of breath.A large portion of this history of present illness was obtained from most recent discharge summary.According most recent discharge summary a few months ago the patient had been admitted for acute renal failure noted to have a p otassium of 7 she had an extensive stay here on discharge her potassium was 5.1 her creatinine was 1.6 at that time she had an ejection fraction of 50% according to medical record she has COPD she is on chronic oxygen at home at 3 L.Her potassium was treated with calcium chloride, bicarb insulin and glucose.As well as home Kayexalate.The patient reports that she has home health nurse and her primary care provider is Dr. Metcalf who she saw last Sunday.The patient reports that she has been too weak to ambulate for the last 2 weeks.She does have a history of atrial fibrillation and she is on Xarelto. She denies falling or hitting her head or any bleeding.The patient also has a chronic indwelling Blanco catheter.) Review of Systems Constitutional: denies: Fever, Chills, Myalgias Eyes: denies: Loss of vision Ears: denies: Loss of hearing Nose: denies: Congestion, Sinus pressure / pain Throat: reports: Reviewed and negative Cardiac: denies: Chest pain / pressure Respiratory: reports: Dyspnea GI: reports: Abdominal Swelling. denies: Abdominal Pain, Nausea, Vomiting, Constipation, Diarrhea : reports: Other (Chronic indwelling Blanco catheter) Skin: reports: Rash Musculoskeletal: reports: Reviewed and negative Neurologic: reports: Generalized weakness. denies: Focal weakness, Numbness, Difficulty speaking, Near syncope, Syncope, Seizure, Confused, Altered mental status, Unresponsive, Headache, Head injury Endocrine: reports: Weight gain. 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 : Incontinence, Indwelling catheter HEENT: Chronic sinusitis, Chronic hearing loss Psych: Depression, Anxiety Musculoskeletal: Osteoarthritis, Chronic back pain Derm: Other - Past Surgical History Past Surgical History: Yes General: Cholecystectomy /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 SERVICE 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: Hysterectomy - Present Medications Home Medications: Ambulatory Orders Medication Instructions Recorded Confirmed Atorvastatin Calcium 40 mg PO QPM 11/13/17 08/02/19 HYDROcod/ACETAM 5/325 [[place] 5/325] 0.5 - 1 tab PO TID PRN 11/13/17 08/02/19 Rivaroxaban [Xarelto] 15 mg PO QDDINNER 11/05/18 08/02/19 bisacodyL [Dulcolax] 5 mg PO BID PRN 11/05/18 08/02/19 Diphenoxylate HCl/Atropine 1 tab PO QID PRN 02/17/19 08/02/19 [Diphenoxylate-Atrop 2.5-0.025] Ferrous Sulfate 325 mg PO DAILYWM 05/30/19 08/02/19 Insulin 70/30 Human [NovoLIN] 20 unit SUBQ BID 05/30/19 08/02/19 Ipratropium/Albuterol Sulfate 3 ml INH BID 05/30/19 08/02/19 [Iprat-Albut 0.5-3(2.5) mg/3 ml] Levothyroxine Sodium [Synthroid] 150 mcg PO QDAC 05/30/19 08/02/19 Magnesium Hydroxide [Milk of 2,400 mg PO QPM PRN 05/30/19 08/02/19 Magnesia] Omeprazole 20 mg PO QDAC 05/30/19 08/02/19 Furosemide 20 mg PO BIDDIURETIC #0 08/03/19 08/02/19 Metoprolol Succinate [Toprol Xl] 50 mg PO DAILY #60 tablet 08/03/19 08/02/19 Nystatin Cream [Mycostatin Cream] 1 applic TOP BID #3 tube 08/03/19 Sod Polystyrene Sulf. [Kayexalate] 15 gm PO DAILY #1 bottle 08/03/19 amLODIPine [Norvasc] 5 mg PO BID #0 08/03/19 08/02/19 Cephalexin [Keflex] 500 mg PO QID 10 Days #40 capsule 11/02/19 - Allergies Allergies/Adverse Reactions: Allergies Allergy/AdvReac Type Severity Reaction Status Date / Time No Known Drug Allergies Allergy Verified 07/29/19 13:03 - Social History Does the pt smoke?: No Smoking Status: Never smoker Does the pt drink ETOH?: No Does the pt have substance abuse?: No - Immunizations Immunizations are current?: Yes - POLST Patient has POLST: Yes POLST Status: DNR PD ED PE NORMAL - Vitals Vital signs reviewed: Yes - General General: Alert and oriented X 3, No acute distress, Other (Obese) - HEENT HEENT: Atraumatic, PERRL, EOMI - Neck Neck: Supple, no meningeal sign - Cardiac Cardiac: RRR, Strong equal pulses - Respiratory Respiratory: No respiratory distress, Other (Crackles at the bases bilaterally) - Abdomen Abdomen: Normal bowel sounds, Soft, Non tender, Non distended - Derm Derm: Normal color, Other (There is some erythema and redness in her skin folds.) - Extremities Extremities: No deformity - Neuro Neuro: Alert and oriented X 3, sports bookmaker 2-12 intact, No motor deficit, No sensory deficit, Normal speech - Psych Psych: Normal mood, Normal affect Results - Vitals Vitals: Vital Signs - 24 hr 11/02/19 11/02/19 20:20 21:00 Temperature 37.2 C Heart Rate 81 82 Respiratory 17 Rate Blood Pressure 156/82 H 157/88 H O2 Saturation 92 91 L Oxygen O2 Source [] Nasal cannula O2 Source Nasal cannula Oxygen Flow Rate 3 - EKG (time done) 20:36 Rate: Other (no STEMI) - Labs Labs: Laboratory Tests 11/02/19 11/02/19 11/02/19 21:00 21:00 21:00 WBC 7.4 RBC 3.51 L Hgb 10.5 L Hct 37.5 MCV 106.8 H MCH 29.9 MCHC 28.0 L RDW 14.3 Plt Count 186 MPV 10.5 Neut # (Auto) 5.3 Lymph # (Auto) 0.9 L [place] # (Auto) 0.8 Eos # (Auto) 0.2 Baso # (Auto) 0.0 Absolute Nucleated RBC 0.00 Nucleated RBC % 0.0 Manual Slide Review Indicated Platelet Estimate NORMAL (130-450,000) Platelet Morphology NORMAL APPEARANCE RBC Morph Micro Appear 2+ POIKILOCYTOSIS PT 12.8 H INR 1.1 APTT 36.4 H VBG pH VBG pCO2 VBG pO2 VBG HCO3 VBG Total CO2 VBG O2 Saturation VBG Base Excess Sodium 141 Potassium 4.0 Chloride 93 L Carbon Dioxide 35 H Anion Gap 13.0 BUN 30 H Creatinine 1.8 H Estimated GFR (MDRD) 27 L Glucose 181 H Lactic Acid Calcium 8.5 Phosphorus 3.2 Magnesium 1.6 L Total Bilirubin 0.7 AST 13 ALT < 10 L Alkaline Phosphatase 61 Total Creatine Kinase 33 Troponin I High Sens B-Natriuretic Peptide Total Protein 7.1 Albumin 3.5 Globulin 3.6 Albumin/Globulin Ratio 1.0 Lipase 23 TSH Urine Color Urine Clarity Urine pH Ur Specific Issue Urine Protein Urine Glucose (UA) Urine Ketones Urine Occult Blood Urine Nitrite Urine Bilirubin Urine Urobilinogen Ur Leukocyte Esterase Urine RBC Urine WBC Ur Squamous Epith Cells Amorphous Sediment Urine Bacteria Ur Microscopic Review Urine Culture Comments Urine Opiates Screen Ur Oxycodone Screen Urine Methadone Screen Ur Propoxyphene Screen Ur Barbiturates Screen Ur Tricyclics Screen Ur Phencyclidine Scrn Ur Amphetamine Screen U Methamphetamines Scrn U Benzodiazepines Scrn Urine Cocaine Screen U Cannabinoids Screen Ethyl Alcohol < 5.0 Serum Ketones NEGATIVE 11/02/19 11/02/19 11/02/19 21:00 21:00 21:00 WBC RBC Hgb Hct MCV MCH MCHC RDW Plt Count MPV Neut # (Auto) Lymph # (Auto) [place] # (Auto) Eos # (Auto) Baso # (Auto) Absolute Nucleated RBC Nucleated RBC % Manual Slide Review Platelet Estimate Platelet Morphology RBC Morph Micro Appear PT INR APTT VBG pH VBG pCO2 VBG pO2 VBG HCO3 VBG Total CO2 VBG O2 Saturation VBG Base Excess Sodium Potassium Chloride Carbon Dioxide Anion Gap BUN Creatinine Estimated GFR (MDRD) Glucose Lactic Acid 1.0 Calcium Phosphorus Magnesium Total Bilirubin AST ALT Alkaline Phosphatase Total Creatine Kinase Troponin I High Sens B-Natriuretic Peptide 323 H Total Protein Albumin Globulin Albumin/Globulin Ratio Lipase TSH 6.97 H Urine Color Urine Clarity Urine pH Ur Specific Issue Urine Protein Urine Glucose (UA) Urine Ketones Urine Occult Blood Urine Nitrite Urine Bilirubin Urine Urobilinogen Ur Leukocyte Esterase Urine RBC Urine WBC Ur Squamous Epith Cells Amorphous Sediment Urine Bacteria Ur Microscopic Review Urine Culture Comments Urine Opiates Screen Ur Oxycodone Screen Urine Methadone Screen Ur Propoxyphene Screen Ur Barbiturates Screen Ur Tricyclics Screen Ur Phencyclidine Scrn Ur Amphetamine Screen U Methamphetamines Scrn U Benzodiazepines Scrn Urine Cocaine Screen U Cannabinoids Screen Ethyl Alcohol Serum Ketones 11/02/19 11/02/19 11/02/19 21:00 21:00 21:03 WBC RBC Hgb Hct MCV MCH MCHC RDW Plt Count MPV Neut # (Auto) Lymph # (Auto) [place] # (Auto) Eos # (Auto) Baso # (Auto) Absolute Nucleated RBC Nucleated RBC % Manual Slide Review Platelet Estimate Platelet Morphology RBC Morph Micro Appear PT INR APTT VBG pH 7.340 VBG pCO2 72.7 H VBG pO2 54.7 H VBG HCO3 38.3 H VBG Total CO2 40.6 H VBG O2 Saturation 90.7 H VBG Base Excess 10.1 H Sodium Potassium Chloride Carbon Dioxide Anion Gap BUN Creatinine Estimated GFR (MDRD) Glucose Lactic Acid Calcium Phosphorus Magnesium Total Bilirubin AST ALT Alkaline Phosphatase Total Creatine Kinase Troponin I High Sens 10.2 B-Natriuretic Peptide Total Protein Albumin Globulin Albumin/Globulin Ratio Lipase TSH Urine Color YELLOW Urine Clarity HAZY Urine pH 5.5 Ur Specific Issue 1.020 Urine Protein TRACE Urine Glucose (UA) NEGATIVE Urine Ketones NEGATIVE Urine Occult Blood NEGATIVE Urine Nitrite POSITIVE H Urine Bilirubin NEGATIVE Urine Urobilinogen 0.2 (NORMAL) Ur Leukocyte Esterase SMALL H Urine RBC 0-5 Urine WBC 6-10 H Ur Squamous Epith Cells FEW Squamous Amorphous Sediment Few Urine Bacteria Many H Ur Microscopic Review INDICATED Urine Culture Comments INDICATED Urine Opiates Screen POSITIVE H Ur Oxycodone Screen NEGATIVE Urine Methadone Screen NEGATIVE Ur Propoxyphene Screen NEGATIVE Ur Barbiturates Screen NEGATIVE Ur Tricyclics Screen NEGATIVE Ur Phencyclidine Scrn NEGATIVE Ur Amphetamine Screen NEGATIVE U Methamphetamines Scrn NEGATIVE U Benzodiazepines Scrn NEGATIVE Urine Cocaine Screen NEGATIVE U Cannabinoids Screen NEGATIVE Ethyl Alcohol Serum Ketones PD MEDICAL DECISION MAKING - ED course Complexity details: re-evaluated patient (non toxic appearing on exam. UTI treated with IV rocephin. Will provide prescription for outpatient abx and close follow up.), d/w patient, d/w family Departure - Departure Disposition: 01 Home, Self Care Clinical Impression: UTI (urinary tract infection) due to urinary indwelling Blanco catheter Qualifiers: Indwelling urinary catheter type: indwelling urethral catheter Encounter type: initial encounter Qualified Code(s): T83.511A - Infection and inflammatory reaction due to indwelling urethral catheter, initial encounter; N39.0 - Urinary tract infection, site not specified Condition: Fair Instructions: ED UTI Cystitis Female Follow-Up: Jose Luis Metcalf MD [Primary Care Provider] - Tomorrow Prescriptions: Cephalexin [Keflex] 500 mg PO QID 10 Days #40 capsule Comments: take antibiotics as directed. Follow up with Dr. Metcalf tomorrow.
[2019-11-02] MEDS ORDERED: cefTRIAXone 1 GM in SODIUM CHLORIDE 0.9% MINIBAG 100 ML IV STA (20:28)
[2019-11-02 21:06] LABS: MUDS CUTOFF CONCENTRATIONS CUTOFF CONC BELOW:
--- NOTE | 2019-11-02 21:07 | XRAY Report ---
Reason: sob Procedure Date: 11/02/2019 Accession Number: [id number] / [id number] Procedure: XR - Chest 1 View X-Ray CPT Code: 80176 Final Report FULL RESULT: EXAM: CHEST RADIOGRAPHY EXAM DATE: 11/02/2019 08:45 PM. CLINICAL HISTORY: Shortness of breath. Weakness. COMPARISON: CHEST 1 VIEW 07/29/2019 5:13 PM CHEST 1 VIEW 07/29/2019 1:43 PM. TECHNIQUE: 1 view. FINDINGS: Lungs/Pleura: Vascular congestion. Inferior right upper lobe opacity without significant change. Lung volumes are low. Mediastinum: Cardiomegaly. Aortic tortuosity. The image is rotated. Other: None. IMPRESSION: 1. Cardiomegaly. Vascular congestion. RADIA
[2019-11-02 21:09] LABS: VBG PCO2 72.7 mmHg (41-51); VBG PH 7.34 (7.31-7.41); VBG PO2 54.7 mmHg (25-47)
[2019-11-02 21:09] LABS: BILIRUBIN,URINE NEGATIVE (NEGATIVE); GLUCOSE, URINE (UA) NEGATIVE (NEGATIVE); KETONES,URINE (UA) NEGATIVE (NEGATIVE); LEUKOCYTE ESTERASE, URINE SMALL (NEGATIVE); NITRITE,URINE POSITIVE (NEGATIVE); OCCULT BLOOD,URINE NEGATIVE (NEGATIVE); PH,URINE 5.5 PH (5.0-7.5); PROTEIN,URINE TRACE mg/dL (NEGATIVE); UROBILINOGEN,URINE 0.2 (NORMAL) E.U./dL (NORMAL)
[2019-11-02 21:10] LABS: VBG BASE EXCESS 10.1 mmol/L (-2 - +2); VBG TOTAL CO2 40.6 mmol/L (24-29)
[2019-11-02 21:13] LABS: CLARITY,URINE HAZY (CLEAR)
[2019-11-02 21:14] LABS: BASOPHILS % (AUTO) 0.3 %; EOSINOPHILS # (AUTO) 0.2 10^3/uL (0.0-0.7); EOSINOPHILS % (AUTO) 2.8 %; HGB - HEMOGLOBIN 10.5 g/dL (12.0-16.0); KETONES, SERUM (ACETEST) NEGATIVE (NEGATIVE); LYMPHOCYTES # (AUTO) 0.9 10^3/uL (1.5-3.5); LYMPHOCYTES % (AUTO) 12.7 %; MEAN CORPUSCULAR HEMOGLOBIN 29.9 pg (27.0-31.0); MEAN CORPUSCULAR VOLUME 106.8 fL (81.0-99.0); MEAN PLATELET VOLUME 10.5 fL (7.9-10.8); MONOCYTES # (AUTO) 0.8 10^3/uL (0.0-1.0); MONOCYTES % (AUTO) 10.4 %; NEUTROPHILS # (AUTO) 5.3 10^3/uL (1.5-6.6); NEUTROPHILS % (AUTO) 71.9 %; PLT - PLATELET COUNT 186 10^3/uL (130-450); RED BLOOD COUNT 3.51 10^6/uL (4.20-5.40); RED CELL DISTRIBUTION WIDTH 14.3 % (12.0-15.0); WHITE BLOOD COUNT 7.4 x10^3/uL (4.8-10.8)
[2019-11-02 21:21] LABS: AMPHETAMINE SCREEN,URINE NEGATIVE (NEGATIVE); BENZODIAZEPINES SCREEN, URINE NEGATIVE (NEGATIVE); COCAINE SCREEN URINE NEGATIVE (NEGATIVE); METHADONE SCREEN, URINE NEGATIVE (NEGATIVE); METHAMPHETAMINES SCREEN, URINE NEGATIVE (NEGATIVE); OPIATE SCREEN, URINE POSITIVE (NEGATIVE); OXYCODONE SCREEN, URINE NEGATIVE (NEGATIVE); PROPOXYPHENE SCREEN, URINE NEGATIVE (NEGATIVE); TRICYCLIC ANTIDEPRESSANT,URINE NEGATIVE (NEGATIVE)
[2019-11-02 21:22] LABS: INR 1.1 (0.8-1.2); PT - PROTHROMBIN TIME 12.8 secs (9.9-12.6)
[2019-11-02 21:25] LABS: ALBUMIN 3.5 g/dL (3.2-5.5); ALKALINE PHOSPHATASE 61 IU/L (42-121); ALT ALANINE AMINOTRANSFERASE < 10 IU/L (10-60); AST ASPARTATE AMINOTRANSFERASE 13 IU/L (10-42); BILIRUBIN,TOTAL 0.7 mg/dL (0.2-1.0); BUN - BLOOD UREA NITROGEN 30 mg/dL (6-20); CALCIUM 8.5 mg/dL (8.5-10.3); CARBON DIOXIDE - CO2 35 mmol/L (21-32); CHLORIDE 93 mmol/L (101-111); CK- CREATINE KINASE 33 IU/L (22-269); CREATININE 1.8 mg/dL (0.4-1.0); GFR - MDRD 27 (>89); GLUCOSE 181 mg/dL (70-100); LIPASE 23 U/L (22-51); MAGNESIUM 1.6 mg/dL (1.7-2.8); PHOSPHORUS 3.2 mg/dL (2.5-4.6); SODIUM 141 mmol/L (135-145); TOTAL PROTEIN 7.1 g/dL (6.7-8.2)
[2019-11-02 21:29] LABS: PARTIAL THROMBOPLASTIN TIME 36.4 secs (24.9-33.3)
[2019-11-02 21:42] LABS: AMORPHOUS SEDIMENT,UR Few /LPF; BACTERIA,URINE Many /HPF (None Seen); RBC,URINE 0-5 /HPF (0-5); SQUAMOUS EPITHELIAL CELL,UR FEW Squamous (<= Few)
[2019-11-02 22:01] LABS: PLATELET ESTIMATE, MANUAL NORMAL (130-450,000) (NORMAL); PLATELET MORPHOLOGY NORMAL APPEARANCE (NORMAL)
[2019-11-02 23:18] VITALS: BP 192/90
== END 2019-11-02 23:20 | disposition home or self-care (01) ==
LOC: EDUNIT# → ED 20:10
DX: T83.511A Infection and inflammatory reaction due to indwelling urethral catheter, initial encounter (principal); N39.0 Urinary tract infection, site not specified; Y84.6 Urinary catheterization as the cause of abnormal reaction of the patient, or of later complication, without mention of misadventure at the time of the procedure; L53.9 Erythematous condition, unspecified; J43.9 Emphysema, unspecified; Z99.81 Dependence on supplemental oxygen; I11.0 Hypertensive heart disease with heart failure; I50.9 Heart failure, unspecified; I48.91 Unspecified atrial fibrillation; Z79.01 Long term (current) use of anticoagulants; E11.9 Type 2 diabetes mellitus without complications; Z79.4 Long term (current) use of insulin
CPT/HCPCS: 36415; 71045; 80053; 80306; 80320; 81001; 81003; 82009; 82550; 82803; 83605; 83690; 83735; 83880; 84100; 84443; 84484; 85025; 85610; 85730; 87040; 87077; 87086; 87181; 93005; 96365; 99284

== ENCOUNTER 2019-11-02 23:14 | Outpatient (CLI) | payer MEDICARE, OTHER | END 2019-11-02 23:15 | disposition home or self-care (01) | LOC: EMS 23:14 | PROVIDERS: ATTEND Surgery | DX: J44.9 Chronic obstructive pulmonary disease, unspecified (principal); Z99.81 Dependence on supplemental oxygen | CPT/HCPCS: A0425; A0428 ==

== ENCOUNTER 2019-11-30 15:46 | Outpatient (CLI) | payer MEDICARE, OTHER | END 2019-11-30 15:47 | disposition critical access hospital (66) | LOC: EMS 15:46 | PROVIDERS: ATTEND Surgery | DX: R41.0 Disorientation, unspecified (principal); R50.9 Fever, unspecified | CPT/HCPCS: A0425; A0427 ==

== ENCOUNTER 2019-11-30 16:01 | Inpatient (IN) | payer MEDICARE, OTHER ==
[2019-11-30] MEDS ORDERED: SODIUM CHLORIDE 0.9% 500 ML IV ONE (16:30)
--- NOTE | 2019-11-30 16:32 | ED Physician Documentation ---
History of Present Illness - Stated complaint Stated Complaint: DEC LOC - Chief complaint Chief Complaint: Neuro - History obtained from History obtained from: Patient, Family, EMS - History of Present Illness Timing: How many days ago (several) Pain level max: 0 Pain level now: 0 Improved by: Nothing Worsened by: Nothing - Additonal information Additional information: Family states that for the past several days she has had gradually declining mental status. Sleeping more, not being as interactive. She is normally bedbound. Her daughter/Caregiver is here with her. Unknown if she has had fevers. Has had a mild cough. daughter/Caregiver states that the urine has become darker than usual. They are concerned about possible kidney failure. Patient has a history of chronic heart failure, COPD and a long list of medical issues. She has been having increasing skin breakdown on her buttocks as well. Patient has a chronic indwelling Blanco catheter, urine has been draining around this at home. Patient is also normally on 3 L of oxygen at home Review of Systems Unable to obtain: AMS Respiratory: reports: Cough GI: denies: Vomiting, Diarrhea PD PAST MEDICAL HISTORY - Past Medical History Cardiovascular: Congestive heart failure, Hypertension, Coronary artery disease, [place] Respiratory: COPD, Emphysema, Shortness of breath, CPAP use, Other Neuro: Migraines Endocrine/Autoimmune: Type 2 diabetes, HyPOthyroidism GI: GERD, Chronic constipation, Hemorrhoids TRACK PRODUCTION ENGINEER: None : Incontinence, Indwelling catheter HEENT: Chronic sinusitis, Chronic hearing loss Psych: Depression, Anxiety Musculoskeletal: Osteoarthritis, Chronic back pain Derm: Other - Past Surgical History Past Surgical History: Yes General: Cholecystectomy /TRACK PRODUCTION ENGINEER: Hysterectomy - Present Medications Home Medications: Ambulatory Orders Medication Instructions Recorded Confirmed Atorvastatin Calcium 40 mg PO QPM 11/13/17 08/02/19 HYDROcod/ACETAM 5/325 [[place] 5/325] 0.5 - 1 tab PO TID PRN 11/13/17 08/02/19 Rivaroxaban [Xarelto] 15 mg PO QDDINNER 11/05/18 08/02/19 bisacodyL [Dulcolax] 5 mg PO BID PRN 11/05/18 08/02/19 Diphenoxylate HCl/Atropine 1 tab PO QID PRN 02/17/19 08/02/19 [Diphenoxylate-Atrop 2.5-0.025] Ferrous Sulfate 325 mg PO DAILYWM 05/30/19 08/02/19 Insulin 70/30 Human [NovoLIN] 20 unit SUBQ BID 05/30/19 08/02/19 Ipratropium/Albuterol Sulfate 3 ml INH BID 05/30/19 08/02/19 [Iprat-Albut 0.5-3(2.5) mg/3 ml] Levothyroxine Sodium [Synthroid] 150 mcg PO QDAC 05/30/19 08/02/19 Magnesium Hydroxide [Milk of 2,400 mg PO QPM PRN 05/30/19 08/02/19 Magnesia] Omeprazole 20 mg PO QDAC 05/30/19 08/02/19 Furosemide 20 mg PO BIDDIURETIC #0 08/03/19 08/02/19 Metoprolol Succinate [Toprol Xl] 50 mg PO DAILY #60 tablet 08/03/19 08/02/19 Nystatin Cream [Mycostatin Cream] 1 applic TOP BID #3 tube 08/03/19 Sod Polystyrene Sulf. [Kayexalate] 15 gm PO DAILY #1 bottle 08/03/19 amLODIPine [Norvasc] 5 mg PO BID #0 08/03/19 08/02/19 Cephalexin [Keflex] 500 mg PO QID 10 Days #40 capsule 11/02/19 - Allergies Allergies/Adverse Reactions: Allergies Allergy/AdvReac Type Severity Reaction Status Date / Time No Known Drug Allergies Allergy Verified 11/30/19 16:12 - Social History Does the pt smoke?: No Smoking Status: Never smoker Does the pt drink ETOH?: No Does the pt have substance abuse?: No - Immunizations Immunizations are current?: Yes - POLST Patient has POLST: Yes POLST Status: DNR PD ED PE NORMAL - Vitals Vital signs reviewed: Yes - General General: Other (drowsy, but arousable, moans. morbidly obese) - HEENT HEENT: Atraumatic, PERRL, Other (dry lips) - Neck Neck: Supple, no meningeal sign - Cardiac Cardiac: RRR - Respiratory Respiratory: No respiratory distress, Other (diminished BS and crackles B) - Abdomen Abdomen: Soft, Non tender, Non distended - Back Back: No spinal TTP - Derm Derm: Warm and dry - Extremities Extremities: Other (Skin breakdown over the buttocks. Images obtained by nursing staff) - Neuro Neuro: Other (Drowsy but arousable) Results - Vitals Vitals: Vital Signs - 24 hr 11/30/19 11/30/19 16:12 16:49 Temperature 36.9 C Heart Rate 85 86 Respiratory 18 20 Rate Blood Pressure 149/79 H 116/97 H O2 Saturation 90 L 94 Oxygen O2 Source [] Nasal cannula O2 Source Nasal cannula - EKG (time done) 1648 Rate: Rate (enter#) (84) Rhythm: NSR [place]: Normal Intervals: Normal [place] QRS: Normal Ischemia: Normal ST segments - Labs Labs: Laboratory Tests 11/30/19 11/30/19 11/30/19 16:30 16:30 16:30 WBC 5.1 RBC 3.82 L Hgb 11.3 L Hct 40.2 MCV 105.2 H MCH 29.6 MCHC 28.1 L RDW 12.8 Plt Count 153 MPV 10.9 H Neut # (Auto) 3.5 Lymph # (Auto) 0.9 L [place] # (Auto) 0.5 Eos # (Auto) 0.1 Baso # (Auto) 0.0 Absolute Nucleated RBC 0.00 Nucleated RBC % 0.0 Manual Slide Review Indicated Platelet Estimate NORMAL (130-450,000) Platelet Morphology NORMAL APPEARANCE RBC Morph Micro Appear 1+ BASO STIPPLING PT 13.0 H INR 1.2 APTT 33.3 Sodium 139 Potassium 5.1 H Chloride 95 L Carbon Dioxide 33 H Anion Gap 11.0 BUN 40 H Creatinine 1.7 H Estimated GFR (MDRD) 29 L Glucose 172 H Lactic Acid Calcium 8.6 Total Bilirubin 0.5 AST 13 ALT < 10 L Alkaline Phosphatase 61 Total Creatine Kinase 24 Troponin I High Sens B-Natriuretic Peptide Total Protein 7.1 Albumin 3.4 Globulin 3.7 Albumin/Globulin Ratio 0.9 L Lipase 24 Urine Color Urine Clarity Urine pH Ur Specific [place] Urine Protein Urine Glucose (UA) Urine Ketones Urine Occult Blood Urine Nitrite Urine Bilirubin Urine Urobilinogen Ur Leukocyte Esterase Urine RBC Urine WBC Urine WBC Clumps Ur Epithelial Cells Ur Squamous Epith Cells Urine Bacteria Urine Yeast Ur Microscopic Review Urine Culture Comments Influenza A (Rapid) Influenza B (Rapid) 11/30/19 11/30/19 11/30/19 16:30 16:30 16:30 WBC RBC Hgb Hct MCV MCH MCHC RDW Plt Count MPV Neut # (Auto) Lymph # (Auto) [place] # (Auto) Eos # (Auto) Baso # (Auto) Absolute Nucleated RBC Nucleated RBC % Manual Slide Review Platelet Estimate Platelet Morphology RBC Morph Micro Appear PT INR APTT Sodium Potassium Chloride Carbon Dioxide Anion Gap BUN Creatinine Estimated GFR (MDRD) Glucose Lactic Acid 1.2 Calcium Total Bilirubin AST ALT Alkaline Phosphatase Total Creatine Kinase Troponin I High Sens 10.1 B-Natriuretic Peptide 254 H Total Protein Albumin Globulin Albumin/Globulin Ratio Lipase Urine Color Urine Clarity Urine pH Ur Specific [place] Urine Protein Urine Glucose (UA) Urine Ketones Urine Occult Blood Urine Nitrite Urine Bilirubin Urine Urobilinogen Ur Leukocyte Esterase Urine RBC Urine WBC Urine WBC Clumps Ur Epithelial Cells Ur Squamous Epith Cells Urine Bacteria Urine Yeast Ur Microscopic Review Urine Culture Comments Influenza A (Rapid) Influenza B (Rapid) 11/30/19 11/30/19 16:45 17:00 WBC RBC Hgb Hct MCV MCH MCHC RDW Plt Count MPV Neut # (Auto) Lymph # (Auto) [place] # (Auto) Eos # (Auto) Baso # (Auto) Absolute Nucleated RBC Nucleated RBC % Manual Slide Review Platelet Estimate Platelet Morphology RBC Morph Micro Appear PT INR APTT Sodium Potassium Chloride Carbon Dioxide Anion Gap BUN Creatinine Estimated GFR (MDRD) Glucose Lactic Acid Calcium Total Bilirubin AST ALT Alkaline Phosphatase Total Creatine Kinase Troponin I High Sens B-Natriuretic Peptide Total Protein Albumin Globulin Albumin/Globulin Ratio Lipase Urine Color YELLOW Urine Clarity CLEAR Urine pH 5.5 Ur Specific [place] 1.025 Urine Protein 30 H Urine Glucose (UA) NEGATIVE Urine Ketones NEGATIVE Urine Occult Blood SMALL H Urine Nitrite NEGATIVE Urine Bilirubin NEGATIVE Urine Urobilinogen 0.2 (NORMAL) Ur Leukocyte Esterase SMALL H Urine RBC 11-25 H Urine WBC >25 H Urine WBC Clumps PRESENT Ur Epithelial Cells RARE Transitional Ur Squamous Epith Cells RARE Squamous Urine Bacteria Many H Urine Yeast PRESENT Ur Microscopic Review INDICATED Urine Culture Comments INDICATED Influenza A (Rapid) Negative Influenza B (Rapid) Negative - Rads (name of study) Chest x-ray Radiology: Prelim report reviewed, EMP read contemporaneously, See rad report (1. Expiratory chest x-ray. 2. Cardiomegaly which is similar to prior given differences in patient rotation in phase of respiration. 3. Diffuse reticular nodular opacities which are similar to prior study. Differential includes infiltrate versus interstitial pulmonary edema. Correlate clinically for CHF exacerbation versus infection. ) PD MEDICAL DECISION MAKING - ED course Complexity details: reviewed old records, reviewed results, re-evaluated patient, considered differential, d/w patient, d/w family, d/w recruitment consultant ED course: Patient with multiple medical issues, appears to have a UTI causing altered mental status. Her urinary catheter was changed and it was crusted over. She has significant skin breakdown as well. Mild hyperkalemia. Increasing interstitial edema on her chest x-ray. She is mostly moaning at this point, not really verbal in the emergency department. Based on review of her urinary cultures, started Unasyn. Discussed the case with Dr. Tolliver, hospitalist who accepts. This document was made in part using voice recognition software. While efforts are made to proofread this document, sound alike and grammatical errors may occur. Departure - Departure Disposition: ED Place in Observation Clinical Impression: Chronic systolic congestive heart failure, NYHA class 3, Renal insufficiency, Generalized weakness, Indwelling catheter present on admission, Do not resuscitate status, Hyperkalemia Altered mental status Qualifiers: Altered mental status type: unspecified Qualified Code(s): R41.82 - Altered mental status, unspecified UTI (urinary tract infection) due to urinary indwelling Blanco catheter Qualifiers: Indwelling urinary catheter type: unspecified Encounter type: initial encounter Qualified Code(s): T83.511A - Infection and inflammatory reaction due to indwelling urethral catheter, initial encounter; N39.0 - Urinary tract infection, site not specified
[2019-11-30 16:33] LABS: BASOPHILS % (AUTO) 0.8 %; EOSINOPHILS # (AUTO) 0.1 10^3/uL (0.0-0.7); EOSINOPHILS % (AUTO) 2.2 %; HGB - HEMOGLOBIN 11.3 g/dL (12.0-16.0); LYMPHOCYTES # (AUTO) 0.9 10^3/uL (1.5-3.5); LYMPHOCYTES % (AUTO) 17.8 %; MEAN CORPUSCULAR HEMOGLOBIN 29.6 pg (27.0-31.0); MEAN CORPUSCULAR HGB CONC 28.1 g/dL (32.0-36.0); MEAN CORPUSCULAR VOLUME 105.2 fL (81.0-99.0); MEAN PLATELET VOLUME 10.9 fL (7.9-10.8); MONOCYTES # (AUTO) 0.5 10^3/uL (0.0-1.0); MONOCYTES % (AUTO) 9.6 %; NEUTROPHILS # (AUTO) 3.5 10^3/uL (1.5-6.6); NEUTROPHILS % (AUTO) 67.8 %; PLT - PLATELET COUNT 153 10^3/uL (130-450); RED BLOOD COUNT 3.82 10^6/uL (4.20-5.40); RED CELL DISTRIBUTION WIDTH 12.8 % (12.0-15.0); WHITE BLOOD COUNT 5.1 x10^3/uL (4.8-10.8)
[2019-11-30 16:42] LABS: INR 1.2 (0.8-1.2)
--- NOTE | 2019-11-30 16:44 | XRAY Report ---
Reason: cough, hypoxia Procedure Date: 11/30/2019 Accession Number: [id number] / [id number] Procedure: XR - Chest 1 View X-Ray CPT Code: 49646 Final Report FULL RESULT: EXAM: CHEST RADIOGRAPHY EXAM DATE: 11/30/2019 04:34 PM. CLINICAL HISTORY: Cough, hypoxia. COMPARISON: CHEST 1 VIEW 11/02/2019 8:27 PM. TECHNIQUE: 1 view. FINDINGS: Quality: The patient is rotated. LUNGS: The lungs are hypoventilatory with compressive changes. Diffuse reticular nodular opacities which are similar to prior study. PLEURA: Atelectasis versus fluid in the right minor fissure. No clinically significant pneumothorax. MEDIASTINUM: Cardiomegaly similar to prior given differences in patient rotation in phase of respiration. BONES: No suspicious osseous lesions. IMPRESSION: 1. Expiratory chest x-ray. 2. Cardiomegaly which is similar to prior given differences in patient rotation in phase of respiration. 3. Diffuse reticular nodular opacities which are similar to prior study. Differential includes infiltrate versus interstitial pulmonary edema. Correlate clinically for CHF exacerbation versus infection. RADIA
[2019-11-30 16:48] LABS: ALBUMIN 3.4 g/dL (3.2-5.5); ALBUMIN/GLOBULIN RATIO 0.9 (1.0-2.2); ALKALINE PHOSPHATASE 61 IU/L (42-121); ALT ALANINE AMINOTRANSFERASE < 10 IU/L (10-60); AST ASPARTATE AMINOTRANSFERASE 13 IU/L (10-42); BILIRUBIN,TOTAL 0.5 mg/dL (0.2-1.0); BUN - BLOOD UREA NITROGEN 40 mg/dL (6-20); CALCIUM 8.6 mg/dL (8.5-10.3); CARBON DIOXIDE - CO2 33 mmol/L (21-32); CHLORIDE 95 mmol/L (101-111); CK- CREATINE KINASE 24 IU/L (22-269); CREATININE 1.7 mg/dL (0.4-1.0); GFR - MDRD 29 (>89); GLUCOSE 172 mg/dL (70-100); LIPASE 24 U/L (22-51); SODIUM 139 mmol/L (135-145); TOTAL PROTEIN 7.1 g/dL (6.7-8.2)
[2019-11-30 16:49] LABS: PARTIAL THROMBOPLASTIN TIME 33.3 secs (24.9-33.3)
[2019-11-30 16:51] LABS: BILIRUBIN,URINE NEGATIVE (NEGATIVE); GLUCOSE, URINE (UA) NEGATIVE (NEGATIVE); KETONES,URINE (UA) NEGATIVE (NEGATIVE); LEUKOCYTE ESTERASE, URINE SMALL (NEGATIVE); NITRITE,URINE NEGATIVE (NEGATIVE); OCCULT BLOOD,URINE SMALL (NEGATIVE); PH,URINE 5.5 PH (5.0-7.5); PROTEIN,URINE 30 mg/dL (NEGATIVE); UROBILINOGEN,URINE 0.2 (NORMAL) E.U./dL (NORMAL)
[2019-11-30 16:59] LABS: PLATELET ESTIMATE, MANUAL NORMAL (130-450,000) (NORMAL); PLATELET MORPHOLOGY NORMAL APPEARANCE (NORMAL)
[2019-11-30 17:04] LABS: CLARITY,URINE CLEAR (CLEAR)
[2019-11-30 17:10] LABS: WBC CLUMPS,URINE PRESENT
[2019-11-30 17:11] LABS: BACTERIA,URINE Many /HPF (None Seen); EPITHELIAL CELLS,UR RARE Transitional /HPF (<= Few); SQUAMOUS EPITHELIAL CELL,UR RARE Squamous (<= Few); YEAST,URINE PRESENT
[2019-11-30] MEDS: IPRATROPIUM/ALBUTEROL 3 ML NEB INH STA (17:18)
[2019-11-30] MEDS: SODIUM CHLORIDE 0.9% 1,000 ML IV ONE ×2 (17:18→22:06)
[2019-11-30] MEDS ORDERED: AMPICILLIN/SULBACTAM 3 GM in SODIUM CHLORIDE 0.9% MINIBAG 100 ML IV STA (17:20)
--- NOTE | 2019-11-30 17:54 | HISTORY & PHYSICAL EXAMINATION ---
History of Present Illness - Admitted From Admitted From:: ED - History Obtained From Records Reviewed: yes History obtained from: chart review Exam Limitations: AMS History - Past Medical History Cardiovascular: reports: Congestive heart failure, Hypertension, Coronary artery disease, [place] Respiratory: reports: COPD, Emphysema, Shortness of breath, CPAP use, Other Neuro: reports: Migraines Endocrine/Autoimmune: reports: Type 2 diabetes, HyPOthyroidism GI: reports: GERD, Chronic constipation, Hemorrhoids MANAGER OF PMO: reports: None : reports: Incontinence, Indwelling catheter HEENT: reports: Chronic sinusitis, Chronic hearing loss Psych: reports: Depression, Anxiety Musculoskeletal: reports: Osteoarthritis, Chronic back pain Derm: reports: Other MRSA Hx?: No - Past Surgical History General: reports: Cholecystectomy /MANAGER OF PMO: 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 Prior chart review reveals that her mother from an unknown type of cancer. Her father of CAD. He was also a diabetic. Living arrangement: At home Living Situation: With family Social History Notes: The patient states she lives at home with her oldest daugther review. Chart review notes that her a few years ago. She denies smoking and alcohol use at this time but reports a prior history of tobacc use. - Substance History Use: Uses substance without health or social issues: NONE Abuse: Recurrent use of substance despite neg consequences: NONE Dependence: Experiences withdrawal or developed tolerances: NONE - POLST Patient has POLST: Yes POLST Status: DNR Meds/Allgy - Home Medications Home Medications: Ambulatory Orders Medication Instructions Recorded Confirmed Atorvastatin Calcium 40 mg PO QPM 11/13/17 08/02/19 HYDROcod/ACETAM 5/325 [[place] 5/325] 0.5 - 1 tab PO TID PRN 11/13/17 08/02/19 Rivaroxaban [Xarelto] 15 mg PO QDDINNER 11/05/18 08/02/19 bisacodyL [Dulcolax] 5 mg PO BID PRN 11/05/18 08/02/19 Diphenoxylate HCl/Atropine 1 tab PO QID PRN 02/17/19 08/02/19 [Diphenoxylate-Atrop 2.5-0.025] Ferrous Sulfate 325 mg PO DAILYWM 05/30/19 08/02/19 Insulin 70/30 Human [NovoLIN] 20 unit SUBQ BID 05/30/19 08/02/19 Ipratropium/Albuterol Sulfate 3 ml INH BID 05/30/19 08/02/19 [Iprat-Albut 0.5-3(2.5) mg/3 ml] Levothyroxine Sodium [Synthroid] 150 mcg PO QDAC 05/30/19 08/02/19 Magnesium Hydroxide [Milk of 2,400 mg PO QPM PRN 05/30/19 08/02/19 Magnesia] Omeprazole 20 mg PO QDAC 05/30/19 08/02/19 Furosemide 20 mg PO BIDDIURETIC #0 08/03/19 08/02/19 Metoprolol Succinate [Toprol Xl] 50 mg PO DAILY #60 tablet 08/03/19 08/02/19 Nystatin Cream [Mycostatin Cream] 1 applic TOP BID #3 tube 08/03/19 Sod Polystyrene Sulf. [Kayexalate] 15 gm PO DAILY #1 bottle 08/03/19 amLODIPine [Norvasc] 5 mg PO BID #0 08/03/19 08/02/19 Cephalexin [Keflex] 500 mg PO QID 10 Days #40 capsule 11/02/19 - Allergies Allergies/Adverse Reactions: Allergies Allergy/AdvReac Type Severity Reaction Status Date / Time No Known Drug Allergies Allergy Verified 11/30/19 16:12 Exam - Vital Signs Reviewed Vital Signs: Yes Vital Signs: Vital Signs x48h Temp Pulse Resp BP Pulse Ox 11/30/19 17:19 84 18 11/30/19 16:49 86 20 116/97 H 94 11/30/19 16:12 36.9 C 85 18 149/79 H 90 L Conclusion/Plan - Lab Results Lab results reviewed: Yes Fish Bones: 11/30/19 16:30 11/30/19 16:30 Core Measures - Anticipated LOS I expect patient to be DC'd or transferred within 96 hours.: Yes - DVT/VTE - Prophylaxis VTE/DVT Device ordered at admit?: Yes VTE/DVT Prophylaxis med ordered at admit?: Yes - Stroke - Rehab Assessment Rehab services assessment to be ordered?: Yes - AMI - Statin at Admit Aspirin Prescribed on Admit: Yes
[2019-11-30 18:28] LABS: ABG HCO3 40.9 mmol/L (22.0-26.0); ABG OXYGEN SATURATION 90 % (94-98); ABG PH 7.23 (7.35-7.45); ABG PO2 59 mmHg (80-100)
[2019-11-30 18:29] LABS: ABG BASE EXCESS 10.1 mmol/L (-2.0-3.0); ALLEN TEST POSITIVE
[2019-11-30 18:31] LABS: ABG PCO2 99 mmHg (34-45); ABG TCO2 43.9 MMOL/L (21.0-29.0)
--- NOTE | 2019-11-30 19:56 | HISTORY & PHYSICAL EXAMINATION ---
Chief Complaint - Chief Complaint Chief Complaint: altered mental status History of Present Illness - Admitted From Admitted From:: [facility] - History Obtained From Records Reviewed: yes History obtained from: patient's daughter Exam Limitations: encephalopathy - History of Present Illness HPI Comment/Other: Patient is a 74 y/o female who presented to the ED today with altered mental status. Her daughter who provided the history reports that she was less responsive, diaphoretic and her oxygen saturation kept fluctuating even with her trilogy on. The patient has a chronic indwelling roldan catheter and is prone to recurrent UTI's. She has history of ESBL positive Klebsiella. She has been incontinent despite the roldan. As a result her buttocks and lower back appear hyperemic and peeling. She was last seen in the ED for a UTI about 4 weeks ago. She has had a significant decline in her physical ability since then and as a result, has been bed bound. She is no longer able to stand and pivot for transfer. Normally she can feed herself, but has not done so for the past couple of days. Her daughter has physical limitations to how much care she can provide the patient. It is reported that she has some in home health nurse care. Her last bowel movement was about 10 days ago and required digital disimpaction at the time. Work up in the ED included an ABG which showed a pH of 7.23, pO2 of 59 and a pCO2 of 99. Her UA was also strongly indicative of a UTI. As a result she was admitted to the ICU for further management. At bedside she is very somnolent. She would open her eyes upon persistent insistence but would not respond to any questions asked. Her medical history includes COPD. She uses a trilogy at home. Atrial fibrillation on xarelto, CHF, CAD, HTN, DM II on insulin History - Past Medical History Cardiovascular: reports: Congestive heart failure, Hypertension, Coronary artery disease, [place] Respiratory: reports: COPD, Emphysema, Shortness of breath, CPAP use, Other Neuro: reports: Migraines Endocrine/Autoimmune: reports: Type 2 diabetes, HyPOthyroidism GI: reports: GERD, Chronic constipation, Hemorrhoids VAMPER: reports: None : reports: Incontinence, Indwelling catheter HEENT: reports: Chronic sinusitis, Chronic hearing loss Psych: reports: Depression, Anxiety Musculoskeletal: reports: Osteoarthritis, Chronic back pain Derm: reports: Other MRSA Hx?: No - Past Surgical History General: reports: Cholecystectomy /VAMPER: reports: Hysterectomy - Family & Social History Family History: Mother: , Cancer, Father: , CAD, Diabetes, Type 2, Hypertension, Sister: , Cancer Family History Comment/Other: From previous records: Unable to obtain further family history as the patient states her parents are but does not go into further detail. Prior chart review reveals that her mother from an unknown type of cancer. Her father of CAD. He was also a diabetic. Living arrangement: At home Living Situation: With family Social History Notes: From previous records: The patient states she lives at home with her oldest daugther review. Chart review notes that her a few years ago. She denies smoking and alcohol use at this time but reports a prior history of tobacc use. - Substance History Use: Uses substance without health or social issues: NONE - POLST Patient has POLST: Yes POLST Status: DNR Meds/Allgy - Home Medications Home Medications: Ambulatory Orders Medication Instructions Recorded Confirmed Atorvastatin Calcium 40 mg PO QPM 11/13/17 08/02/19 HYDROcod/ACETAM 5/325 [[place] 5/325] 0.5 - 1 tab PO TID PRN 11/13/17 08/02/19 Rivaroxaban [Xarelto] 15 mg PO QDDINNER 11/05/18 08/02/19 bisacodyL [Dulcolax] 5 mg PO BID PRN 11/05/18 08/02/19 Diphenoxylate HCl/Atropine 1 tab PO QID PRN 02/17/19 08/02/19 [Diphenoxylate-Atrop 2.5-0.025] Ferrous Sulfate 325 mg PO DAILYWM 05/30/19 08/02/19 Insulin 70/30 Human [NovoLIN] 20 unit SUBQ BID 05/30/19 08/02/19 Ipratropium/Albuterol Sulfate 3 ml INH BID 05/30/19 08/02/19 [Iprat-Albut 0.5-3(2.5) mg/3 ml] Levothyroxine Sodium [Synthroid] 150 mcg PO QDAC 05/30/19 08/02/19 Magnesium Hydroxide [Milk of 2,400 mg PO QPM PRN 05/30/19 08/02/19 Magnesia] Omeprazole 20 mg PO QDAC 05/30/19 08/02/19 Furosemide 20 mg PO BIDDIURETIC #0 08/03/19 08/02/19 Metoprolol Succinate [Toprol Xl] 50 mg PO DAILY #60 tablet 08/03/19 08/02/19 Nystatin Cream [Mycostatin Cream] 1 applic TOP BID #3 tube 08/03/19 Sod Polystyrene Sulf. [Kayexalate] 15 gm PO DAILY #1 bottle 08/03/19 amLODIPine [Norvasc] 5 mg PO BID #0 08/03/19 08/02/19 Cephalexin [Keflex] 500 mg PO QID 10 Days #40 capsule 11/02/19 - Allergies Allergies/Adverse Reactions: Allergies Allergy/AdvReac Type Severity Reaction Status Date / Time No Known Drug Allergies Allergy Verified 11/30/19 16:12 Review of Systems - Constitutional Constitutional: reports: Fatigue, Weakness, Poor appetite, Diaphoresis - Eyes Eyes: denies: Pain - Ears, Nose & Throat Ears, Nose & Throat: denies: Sore throat - Cardiovascular Cariovascular: denies: Chest pain - Gastrointestinal Gastrointestinal: reports: Constipation. denies: Nausea, Vomiting - Integumentary Integumentary: reports: Rash, Other (redness) - Other Findings Other Findings: ROS is limited due to encephalopathy. She is unable to provide history at the moment. Prior Level of Functionality: Patient is bed bound. She has become increasingly de-conditioned. She has an indwelling roldan catheter and is prone to recurrent UTI's. She has not been eating for the past couple of days. Exam - Vital Signs Vital Signs: Vital Signs x48h Temp Pulse Resp BP Pulse Ox 11/30/19 19:10 85 11/30/19 18:35 94 24 142/67 H 94 11/30/19 17:19 84 18 11/30/19 16:49 86 20 116/97 H 94 11/30/19 16:12 36.9 C 85 18 149/79 H 90 L - Physical Exam General Appearance: positive: No acute distress, Lethargic Eyes Bilateral: positive: PERRL, EOMI ENT: positive: Dry mucous membranes Neck: positive: No JVD, Trachea midline Respiratory: positive: Chest non-tender, Breath sounds nml. negative: Wheezes, Rales, Rhonchi Cardiovascular: positive: Tachycardia Abdomen: positive: No distention. negative: Guarding, Rebound Back: positive: Other (skin peeling in lower back) Skin: positive: Other (hyperemin in the lower back and buttock area) Extremities: positive: Non-tender, No pedal edema Neurologic/Psychiatric: negative: Oriented x3 Conclusion/Plan - Problem List (1) Acute and chronic respiratory failure with hypercapnia Conclusion/Plan: Patient currently on bipap. Will monitor ABG and adjust setting accordingly (2) UTI (urinary tract infection) Conclusion/Plan: Blood and urine cultures pending Previous history of ESBL positive Klebsiella On meropenem. Will de-escalate antibiotics as indicated by sensitivity Qualifiers: Urinary tract infection type: acute cystitis Hematuria presence: without hematuria Qualified Code(s): N30.00 - Acute cystitis without hematuria (3) Altered mental status Conclusion/Plan: Likely multifactorial 2/2 Hypercapnia and UTI On bipap and antibiotics Qualifiers: Altered mental status type: unspecified Qualified Code(s): R41.82 - Altered mental status, unspecified (4) Chronic systolic (congestive) heart failure Conclusion/Plan: Not in exacerbation Currently volume depleted Hold lasix. Actively hydrating patient with normal saline Will resume metoprolol once blood pressure improves (5) Atrial fibrillation Conclusion/Plan: Rate controlled. Will resume metoprolol XL when blood pressure permits Continue xarelto (6) HTN (hypertension) Conclusion/Plan: On amlodipine and metoprolol However will hold for now due to hypotension Qualifiers: Hypertension type: essential hypertension Qualified Code(s): I10 - Essential (primary) hypertension (7) Hypothyroidism Conclusion/Plan: On synthroid (8) Diabetes mellitus type 2 in obese Conclusion/Plan: Accu checks. SSI Will order lantus 10 units bid (9) GERD (gastroesophageal reflux disease) Conclusion/Plan: Protonix ordered (10) Generalized weakness Conclusion/Plan: Likely multifactorial 2/2 UTI and De-conditioned Patient will likely require rehab upon discharge - Lab Results Fish Bones: 12/01/19 05:54 12/01/19 05:54 Core Measures - Anticipated LOS I expect patient to be DC'd or transferred within 96 hours.: Yes - DVT/VTE - Prophylaxis VTE/DVT Device ordered at admit?: Yes VTE/DVT Prophylaxis med ordered at admit?: Yes
[2019-11-30] MEDS ORDERED: ZINC OXIDE 20% OINT 30 GM TUBE TOP ONE (19:57)
[2019-11-30] MEDS: MEROPENEM 1 GM in SODIUM CHLORIDE 0.9% MINIBAG 100 ML IV SCH (20:01)
[2019-11-30] MEDS ORDERED: BISACODYL 10 MG SUPP PR ONE (20:57)
[2019-11-30] MEDS: NYSTATIN POWDER 15 GM TOP SCH (21:57)
[2019-11-30 23:59] LABS: ABG PH 7.29 (7.35-7.45)
[2019-12-01] LABS: ABG HCO3 38.2 mmol/L (22.0-26.0); ABG PCO2 81 mmHg (34-45); ABG PO2 63 mmHg (80-100); ABG TCO2 40.6 MMOL/L (21.0-29.0)
[2019-12-01 00:01] LABS: ABG OXYGEN SATURATION 92 % (94-98); ALLEN TEST POSITIVE
[2019-12-01] MEDS: MEROPENEM 1 GM in SODIUM CHLORIDE 0.9% MINIBAG 100 ML IV SCH ×2 (03:55→12:19)
[2019-12-01] MEDS: SODIUM CHLORIDE FLUSH 0.9% 10 ML SYRINGE IVP SCH ×3 (04:46→17:22)
[2019-12-01] MEDS: SODIUM CHLORIDE 0.9% 1,000 ML IV ONE (05:33)
[2019-12-01 06:12] LABS: BASOPHILS % (AUTO) 0.5 %; EOSINOPHILS # (AUTO) 0.1 10^3/uL (0.0-0.7); EOSINOPHILS % (AUTO) 0.9 %; HGB - HEMOGLOBIN 9.8 g/dL (12.0-16.0); LYMPHOCYTES # (AUTO) 0.8 10^3/uL (1.5-3.5); LYMPHOCYTES % (AUTO) 14.2 %; MEAN CORPUSCULAR HEMOGLOBIN 29.5 pg (27.0-31.0); MEAN CORPUSCULAR HGB CONC 28.7 g/dL (32.0-36.0); MEAN PLATELET VOLUME 10.9 fL (7.9-10.8); MONOCYTES # (AUTO) 0.7 10^3/uL (0.0-1.0); MONOCYTES % (AUTO) 11.3 %; NEUTROPHILS # (AUTO) 4.2 10^3/uL (1.5-6.6); NEUTROPHILS % (AUTO) 72.2 %; PLT - PLATELET COUNT 145 10^3/uL (130-450); RED BLOOD COUNT 3.32 10^6/uL (4.20-5.40); RED CELL DISTRIBUTION WIDTH 13.1 % (12.0-15.0); WHITE BLOOD COUNT 5.8 x10^3/uL (4.8-10.8)
[2019-12-01 06:20] LABS: CALCIUM 8.4 mg/dL (8.5-10.3); CREATININE 1.6 mg/dL (0.4-1.0)
[2019-12-01] MEDS: PANTOPRAZOLE 40 MG VIAL IVP SCH (06:33)
[2019-12-01] MEDS: SODIUM CHLORIDE FLUSH 0.9% 10 ML SYRINGE IVP PRN (06:34)
[2019-12-01 06:47] LABS: HB2 TOTAL 10.2 g/dL; HEMOGLOBIN A1C 0.5 g/dL; HEMOGLOBIN A1C % 6.6 % (4.6-6.2)
[2019-12-01 08:26] LABS: ABG BASE EXCESS 6.4 mmol/L (-2.0-3.0); ABG HCO3 33.8 mmol/L (22.0-26.0); ABG OXYGEN SATURATION 92 % (94-98); ABG PH 7.34 (7.35-7.45); ABG PO2 61 mmHg (80-100); ABG TCO2 35.7 MMOL/L (21.0-29.0); ALLEN TEST POSITIVE
[2019-12-01 08:31] LABS: ABG PCO2 64 mmHg (34-45)
[2019-12-01] MEDS: polyethylene glycoL 3350 17 GM PACKET PO SCH (08:49)
[2019-12-01] MEDS: SODIUM CHLORIDE 0.9% 1,000 ML IV SCH ×2 (08:50→17:28)
[2019-12-01] MEDS: ZINC OXIDE 20% OINT 30 GM TUBE TOP PRN ×2 (08:51→14:42)
[2019-12-01] MEDS: NYSTATIN POWDER 15 GM TOP SCH ×2 (08:51→20:42)
[2019-12-01] MEDS: INSULIN ASPART 300 UNIT/3 ML PEN SUBQ SCH ×4 (08:52→20:38)
[2019-12-01] MEDS ORDERED: SODIUM CHLORIDE 0.9% 1,000 ML IV SCH (09:00)
[2019-12-01] MEDS ORDERED: VANCOMYCIN PER PHARMACY 100 GM in SODIUM CHLORIDE 0.9% 250 ML IV SCH (09:00)
[2019-12-01] MEDS: INSULIN GLARGINE 300 UNIT/3 ML PEN SUBQ SCH ×2 (09:02→20:38)
[2019-12-01] MEDS ORDERED: VANCOMYCIN INJ 1.75 GM in SODIUM CHLORIDE 0.9% 500 ML IV SCH (10:00)
[2019-12-01] MEDS: RIVAROXABAN 15 MG TABLET PO SCH (17:22)
--- NOTE | 2019-12-01 17:50 | PHARMACY PROGRESS NOTE ---
- Best Possible Medication History Admit Date and Time: 11/30/19 6385 Processed by: Pharmacy Medication History completed: In progress (Patient no alert and oriented for interview; confirming meds that can be confirmed today; per daughter she would like to go patient's medication list that she will bring in tomorrow for completeness) As the person ultimately responsible for medication therapy, providers are able to order a medication from an existing home medication list in [facility] via the "Reconcile Routine" prior to Confirmation of that medication by nursing support worker. Such practice is discouraged except when the physician, in their clinical judgment, deems that a medical need exists for a medication without regard to previous use.
--- NOTE | 2019-12-01 18:00 | PROVIDER PROGRESS NOTE ---
Assessment/Plan - Problem List (1) Altered mental status Qualifiers: Altered mental status type: disorientation Qualified Code(s): R41.0 - Disorientation, unspecified Assessment/Plan: She presented obtunded yesterday, respiratory rate was 8. This is likely a combination of CO2 narcosis, weakness and confusion from her infection and volume depletion. BIPAP was started and she was admitted moris the ICU. She became more alert this a.m. and was able to feed herself when given breaks off the BIPAP unit. When the daughter arrived this afternoon, she confirmed that the patient's new baseline (after the stroke last year) is to have normal speech and be completely alert and oriented. She worsened as her measured serum PCO2 increased and she continues to need the BiPAP for ventilation therefore she has not completely cleared her sensorium yet. There are no focal findings, she is moving all her extremities, is oriented x3. Continue with supportive care (2) Acute and chronic respiratory failure with hypercapnia Assessment/Plan: Patient requires home O2 and uses a trilogy machine at home. She was pulling this off over the last 2 days when her confusion was getting worse. Her admission ABG was 7.2//60. She was put on BIPAP. Continue BIPAP with a slow wean, ICU care, nebs, steroids and treatment of the pneumonia. She does not want intubation or CPR. (3) CAP (community acquired pneumonia) Assessment/Plan: IV antibiotics have been started. She does not make any sputum. (4) UTI (urinary tract infection) Assessment/Plan: She has had many many recurrent UTIs. Many of them had ESBL. Urine culture is pending from yesterday She been started on meropenem at admission. (5) Chronic systolic congestive heart failure, NYHA class 3 Assessment/Plan: Her IV fluids were aggressive for the first several hours, now the IV rate is at 83/h in order to prevent CHF (6) Generalized weakness Assessment/Plan: This is related to #1 above. In general she is overall weaker with every admission, according to the daughter who is the caregiver. Patient has refused to go to a SNF after admissions in the past for PT. The daughter is eager to have her mother get PT rehab at a SNF, perhaps after this hospitalization. (7) Acute on chronic renal failure Qualifiers: Chronic kidney disease stage: stage 3 (moderate) Assessment/Plan: Avoid nephrotoxins. Follow BMP daily (8) Chronic indwelling Blanco catheter Assessment/Plan: She now needs this for incontinence and recurrent groin and buttock rashes, decubitus ulcers (9) Diabetes mellitus type 2 in obese Assessment/Plan: Patient was giving 70/30 of insulin at home. Here she was empirically put on Lantus 10 mg subcu twice daily plus a sliding scale of Reg Insulin. A1c is pending. She is awake enough during BiPAP breaks, to eat solid food on a diabetic diet. (10) Anemia Assessment/Plan: Likely to be anemia of chronic disease. Follow CBC daily (11) History of stroke Assessment/Plan: The details of any residual deficit are not clear, this needs to be confirmed with the daughter, her caregiver. (12) Decubitus ulcer, buttock Qualifiers: Pressure injury stage: stage 1 Assessment/Plan: Topical treatment was ordered, plus turn and reposition. (13) Rash of back Assessment/Plan: Topical treatment is ordered. Vancomycin also should help this, if any secondary infection. - Current Meds Current Meds: Current Medications Generic Name Dose Route Start Last Admin Trade Name Freq PRN Reason Stop Dose Admin Meropenem 1 gm/ Sodium 100 mls @ 200 mls/hr 11/30/19 20:00 12/01/19 13:04 Chloride IV Infused Q8H PERNELL Infusion Sodium Chloride 1,000 mls @ 83 mls/hr 12/01/19 09:00 12/01/19 17:28 Normal Saline 0.9% IV 83 mls/hr .Q12H3M PERNELL Administration Vancomycin HCl 1.75 gm/ Sodium 500 mls @ 250 mls/hr 12/01/19 10:00 12/01/19 11:40 Chloride IV Infused Q48H PERNELL Infusion Insulin Aspart 1 - 9 unit 12/01/19 08:00 12/01/19 17:26 Novolog SUBQ 1 unit 0800,1200,1700,2100 PERNELL Administration Protocol Insulin Glargine 10 unit 12/01/19 09:00 12/01/19 09:02 Lantus Solostar SUBQ 10 unit BID PERNELL Administration Multi-Ingredient Ointment 1 applic 12/01/19 06:37 12/01/19 14:42 Zinc Oxide TOP 1 applic PRN PRN Administration Skin Care Nystatin 1 applic 11/30/19 22:00 12/01/19 08:51 Nystop TOP 1 applic BID PERNELL Administration Pantoprazole Sodium 40 mg 12/01/19 07:00 12/01/19 06:33 Protonix IVP 40 mg QDAC PERNELL Administration Polyethylene Glycol 17 gm 12/01/19 09:00 12/01/19 08:49 Miralax PO 17 gm DAILY PERNELL Administration Rivaroxaban 15 mg 12/01/19 17:00 12/01/19 17:22 Xarelto PO 15 mg 1700 PERNELL Administration Sodium Chloride 10 ml 11/30/19 17:31 12/01/19 06:34 Normal Saline Flush 0.9% IVP 10 ml PRN PRN Administration NEEDED PER PROVIDER ORDERS Sodium Chloride 10 ml 12/01/19 01:00 12/01/19 17:22 Normal Saline Flush 0.9% IVP 10 ml 0100,0900,1700 PERNELL Administration - Lab Result Fish Bone Diagrams: 12/01/19 05:54 12/01/19 05:54 - Additional Planning My Orders: My Active Orders 12/01/19 06:37 Zinc Oxide 20% Oint [Zinc Oxide] 1 applic TOP PRN PRN 12/01/19 09:00 polyethylene glycoL 3350 [Miralax] 17 gm PO DAILY 12/01/19 11:34 Code Status [OTHERS] Routine Subjective - Subjective Patient Reports: Other (Awake, but confused, looses her words and stutters.) Nursing Reports: Other ("My buttocks hurt". She is awake this afternoon and knows person, place and time.) Objective Vital Signs: Vital Signs - 24 hr 11/30/19 11/30/19 11/30/19 18:35 19:10 19:11 Temperature Heart Rate 94 87 88 Heart Rate [ Monitoring electrodes] Respiratory 24 13 13 Rate Blood Pressure 142/67 H 142/74 H Blood Pressure [Left Brachial artery] O2 Saturation 94 11/30/19 11/30/19 11/30/19 19:15 19:16 19:20 Temperature Heart Rate 86 88 87 Heart Rate [ Monitoring electrodes] Respiratory 11 L 16 12 Rate Blood Pressure 121/102 H Blood Pressure [Left Brachial artery] O2 Saturation 11/30/19 11/30/19 11/30/19 19:25 19:30 19:31 Temperature Heart Rate 89 82 85 Heart Rate [ Monitoring electrodes] Respiratory 10 L 14 21 Rate Blood Pressure 148/70 H Blood Pressure [Left Brachial artery] O2 Saturation 11/30/19 11/30/19 11/30/19 19:35 19:40 19:45 Temperature Heart Rate 86 88 82 Heart Rate [ Monitoring electrodes] Respiratory 8 L 19 11 L Rate Blood Pressure Blood Pressure [Left Brachial artery] O2 Saturation 11/30/19 11/30/19 11/30/19 19:46 19:50 19:55 Temperature Heart Rate 83 87 90 Heart Rate [ Monitoring electrodes] Respiratory 0 L 24 13 Rate Blood Pressure 110/60 Blood Pressure [Left Brachial artery] O2 Saturation 11/30/19 11/30/19 11/30/19 20:00 20:01 20:05 Temperature 36.5 C Heart Rate 86 90 85 Heart Rate [ 87 Monitoring electrodes] Respiratory 18 17 21 Rate Blood Pressure 153/76 H Blood Pressure 153/76 H [Left Brachial artery] O2 Saturation 97 11/30/19 11/30/19 11/30/19 20:10 20:15 20:20 Temperature Heart Rate 87 88 82 Heart Rate [ Monitoring electrodes] Respiratory 24 15 22 Rate Blood Pressure Blood Pressure [Left Brachial artery] O2 Saturation 11/30/19 11/30/19 11/30/19 20:25 20:30 20:31 Temperature Heart Rate 84 83 83 Heart Rate [ Monitoring electrodes] Respiratory 20 19 19 Rate Blood Pressure 110/63 Blood Pressure [Left Brachial artery] O2 Saturation 11/30/19 11/30/19 11/30/19 20:35 20:40 20:45 Temperature Heart Rate 81 80 75 Heart Rate [ Monitoring electrodes] Respiratory 14 16 18 Rate Blood Pressure Blood Pressure [Left Brachial artery] O2 Saturation 11/30/19 11/30/19 11/30/19 20:50 20:55 21:00 Temperature Heart Rate 79 78 78 Heart Rate [ 79 Monitoring electrodes] Respiratory 17 15 17 Rate Blood Pressure Blood Pressure 89/51 L [Left Brachial artery] O2 Saturation 94 11/30/19 11/30/19 11/30/19 21:01 21:05 21:10 Temperature Heart Rate 79 78 79 Heart Rate [ Monitoring electrodes] Respiratory 17 17 17 Rate Blood Pressure 89/51 L Blood Pressure [Left Brachial artery] O2 Saturation 11/30/19 11/30/19 11/30/19 21:11 21:12 21:15 Temperature Heart Rate 78 79 79 Heart Rate [ Monitoring electrodes] Respiratory 18 17 16 Rate Blood Pressure 95/56 L Blood Pressure [Left Brachial artery] O2 Saturation 11/30/19 11/30/19 11/30/19 21:20 21:25 21:30 Temperature Heart Rate 77 79 77 Heart Rate [ Monitoring electrodes] Respiratory 17 16 16 Rate Blood Pressure Blood Pressure [Left Brachial artery] O2 Saturation 11/30/19 11/30/19 11/30/19 21:35 21:40 21:45 Temperature Heart Rate 76 77 78 Heart Rate [ Monitoring electrodes] Respiratory 17 16 16 Rate Blood Pressure Blood Pressure [Left Brachial artery] O2 Saturation 11/30/19 11/30/19 11/30/19 21:50 21:55 22:00 Temperature Heart Rate 77 80 85 Heart Rate [ 81 Monitoring electrodes] Respiratory 16 17 14 Rate Blood Pressure Blood Pressure 104/65 [Left Brachial artery] O2 Saturation 99 11/30/19 11/30/19 11/30/19 22:01 22:05 22:10 Temperature Heart Rate 89 86 83 Heart Rate [ Monitoring electrodes] Respiratory 15 15 20 Rate Blood Pressure 104/65 Blood Pressure [Left Brachial artery] O2 Saturation 11/30/19 11/30/19 11/30/19 22:15 22:20 22:25 Temperature Heart Rate 83 89 86 Heart Rate [ Monitoring electrodes] Respiratory 17 23 20 Rate Blood Pressure Blood Pressure [Left Brachial artery] O2 Saturation 11/30/19 11/30/19 11/30/19 22:30 22:35 22:40 Temperature Heart Rate 88 86 96 Heart Rate [ Monitoring electrodes] Respiratory 25 H 20 21 Rate Blood Pressure Blood Pressure [Left Brachial artery] O2 Saturation 11/30/19 11/30/19 11/30/19 22:45 22:50 22:55 Temperature Heart Rate 94 91 96 Heart Rate [ Monitoring electrodes] Respiratory 17 22 20 Rate Blood Pressure Blood Pressure [Left Brachial artery] O2 Saturation 11/30/19 11/30/19 11/30/19 23:00 23:01 23:05 Temperature Heart Rate 102 H 94 109 H Heart Rate [ 98 Monitoring electrodes] Respiratory 17 18 19 Rate Blood Pressure 174/93 H Blood Pressure 174/93 H [Left Brachial artery] O2 Saturation 96 11/30/19 11/30/19 11/30/19 23:10 23:15 23:20 Temperature Heart Rate 98 91 88 Heart Rate [ Monitoring electrodes] Respiratory 20 18 16 Rate Blood Pressure Blood Pressure [Left Brachial artery] O2 Saturation 11/30/19 11/30/19 11/30/19 23:25 23:30 23:35 Temperature Heart Rate 91 90 89 Heart Rate [ Monitoring electrodes] Respiratory 14 18 25 H Rate Blood Pressure Blood Pressure [Left Brachial artery] O2 Saturation 11/30/19 11/30/19 11/30/19 23:37 23:38 23:40 Temperature Heart Rate 88 89 91 Heart Rate [ Monitoring electrodes] Respiratory 19 20 15 Rate Blood Pressure 147/70 H Blood Pressure [Left Brachial artery] O2 Saturation 11/30/19 11/30/19 11/30/19 23:45 23:50 23:55 Temperature Heart Rate 90 89 88 Heart Rate [ Monitoring electrodes] Respiratory 19 18 20 Rate Blood Pressure Blood Pressure [Left Brachial artery] O2 Saturation 12/01/19 12/01/19 12/01/19 00:00 00:01 00:05 Temperature 36.7 C Heart Rate 90 88 88 Heart Rate [ 89 Monitoring electrodes] Respiratory 22 20 21 Rate Blood Pressure 138/69 H Blood Pressure 138/69 H [Left Brachial artery] O2 Saturation 95 12/01/19 12/01/19 12/01/19 00:10 00:15 00:20 Temperature Heart Rate 84 84 79 Heart Rate [ Monitoring electrodes] Respiratory 15 17 15 Rate Blood Pressure Blood Pressure [Left Brachial artery] O2 Saturation 12/01/19 12/01/19 12/01/19 00:25 00:30 00:35 Temperature Heart Rate 79 80 78 Heart Rate [ Monitoring electrodes] Respiratory 18 16 16 Rate Blood Pressure Blood Pressure [Left Brachial artery] O2 Saturation 12/01/19 12/01/19 12/01/19 00:40 00:45 00:50 Temperature Heart Rate 85 85 86 Heart Rate [ Monitoring electrodes] Respiratory 18 19 18 Rate Blood Pressure Blood Pressure [Left Brachial artery] O2 Saturation 12/01/19 12/01/19 12/01/19 00:55 01:00 01:01 Temperature Heart Rate 84 88 85 Heart Rate [ 84 Monitoring electrodes] Respiratory 21 21 20 Rate Blood Pressure 129/64 Blood Pressure 129/64 [Left Brachial artery] O2 Saturation 96 12/01/19 12/01/19 12/01/19 01:05 01:10 01:15 Temperature Heart Rate 94 83 85 Heart Rate [ Monitoring electrodes] Respiratory 20 19 19 Rate Blood Pressure Blood Pressure [Left Brachial artery] O2 Saturation 12/01/19 12/01/19 12/01/19 01:20 01:30 01:35 Temperature Heart Rate 86 83 87 Heart Rate [ Monitoring electrodes] Respiratory 20 25 H Rate Blood Pressure Blood Pressure [Left Brachial artery] O2 Saturation 12/01/19 12/01/19 12/01/19 01:40 01:45 01:50 Temperature Heart Rate 84 79 87 Heart Rate [ Monitoring electrodes] Respiratory 19 18 17 Rate Blood Pressure Blood Pressure [Left Brachial artery] O2 Saturation 12/01/19 12/01/19 12/01/19 01:55 02:00 02:01 Temperature Heart Rate 79 83 82 Heart Rate [ 87 Monitoring electrodes] Respiratory 18 17 15 Rate Blood Pressure 145/79 H Blood Pressure 145/79 H [Left Brachial artery] O2 Saturation 97 12/01/19 12/01/19 12/01/19 02:05 02:10 02:15 Temperature Heart Rate 80 88 82 Heart Rate [ Monitoring electrodes] Respiratory 17 15 19 Rate Blood Pressure Blood Pressure [Left Brachial artery] O2 Saturation 12/01/19 12/01/19 12/01/19 02:20 02:25 02:30 Temperature Heart Rate 81 83 80 Heart Rate [ Monitoring electrodes] Respiratory 17 17 16 Rate Blood Pressure Blood Pressure [Left Brachial artery] O2 Saturation 12/01/19 12/01/19 12/01/19 02:35 02:40 02:45 Temperature Heart Rate 84 82 80 Heart Rate [ Monitoring electrodes] Respiratory 16 17 14 Rate Blood Pressure Blood Pressure [Left Brachial artery] O2 Saturation 12/01/19 12/01/19 12/01/19 02:50 02:55 03:00 Temperature Heart Rate 79 74 77 Heart Rate [ 78 Monitoring electrodes] Respiratory 19 19 18 Rate Blood Pressure Blood Pressure 119/93 H [Left Brachial artery] O2 Saturation 96 12/01/19 12/01/19 12/01/19 03:01 03:05 03:10 Temperature Heart Rate 82 83 86 Heart Rate [ Monitoring electrodes] Respiratory 18 20 23 Rate Blood Pressure 119/93 H Blood Pressure [Left Brachial artery] O2 Saturation 12/01/19 12/01/19 12/01/19 03:15 03:20 03:25 Temperature Heart Rate 85 80 83 Heart Rate [ Monitoring electrodes] Respiratory 21 15 17 Rate Blood Pressure Blood Pressure [Left Brachial artery] O2 Saturation 12/01/19 12/01/19 12/01/19 03:26 03:30 03:35 Temperature Heart Rate 81 90 84 Heart Rate [ Monitoring electrodes] Respiratory 18 13 Rate Blood Pressure Blood Pressure [Left Brachial artery] O2 Saturation 12/01/19 12/01/19 12/01/19 03:40 03:45 03:50 Temperature Heart Rate 84 86 83 Heart Rate [ Monitoring electrodes] Respiratory 16 13 21 Rate Blood Pressure Blood Pressure [Left Brachial artery] O2 Saturation 12/01/19 12/01/19 12/01/19 03:55 04:00 04:01 Temperature Heart Rate 83 77 82 Heart Rate [ 83 Monitoring electrodes] Respiratory 15 16 20 Rate Blood Pressure 130/71 Blood Pressure 130/71 [Left Brachial artery] O2 Saturation 97 12/01/19 12/01/19 12/01/19 04:05 04:10 04:15 Temperature Heart Rate 77 85 87 Heart Rate [ Monitoring electrodes] Respiratory 18 16 10 L Rate Blood Pressure Blood Pressure [Left Brachial artery] O2 Saturation 12/01/19 12/01/19 12/01/19 04:20 04:25 04:30 Temperature Heart Rate 83 89 87 Heart Rate [ Monitoring electrodes] Respiratory 12 19 25 H Rate Blood Pressure Blood Pressure [Left Brachial artery] O2 Saturation 12/01/19 12/01/19 12/01/19 04:35 04:40 04:45 Temperature Heart Rate 84 85 86 Heart Rate [ Monitoring electrodes] Respiratory 16 17 20 Rate Blood Pressure Blood Pressure [Left Brachial artery] O2 Saturation 12/01/19 12/01/19 12/01/19 04:50 04:55 05:00 Temperature Heart Rate 91 85 84 Heart Rate [ 88 Monitoring electrodes] Respiratory 19 18 17 Rate Blood Pressure Blood Pressure 135/77 H [Left Brachial artery] O2 Saturation 98 12/01/19 12/01/19 12/01/19 05:01 05:05 05:10 Temperature Heart Rate 86 84 90 Heart Rate [ Monitoring electrodes] Respiratory 17 19 17 Rate Blood Pressure 135/77 H Blood Pressure [Left Brachial artery] O2 Saturation 12/01/19 12/01/19 12/01/19 05:15 05:20 05:30 Temperature Heart Rate 88 88 88 Heart Rate [ Monitoring electrodes] Respiratory 21 18 Rate Blood Pressure Blood Pressure [Left Brachial artery] O2 Saturation 12/01/19 12/01/19 12/01/19 06:00 07:00 07:42 Temperature Heart Rate 83 Heart Rate [ 86 81 Monitoring electrodes] Respiratory 18 18 Rate Blood Pressure Blood Pressure 144/76 H 138/92 H [Left Brachial artery] O2 Saturation 99 100 12/01/19 12/01/19 12/01/19 08:00 09:00 10:00 Temperature 36.8 C Heart Rate Heart Rate [ 88 93 93 Monitoring electrodes] Respiratory 19 20 23 Rate Blood Pressure Blood Pressure 165/80 H 144/75 H 129/110 H [Left Brachial artery] O2 Saturation 98 98 96 12/01/19 12/01/19 12/01/19 11:00 12:00 12:15 Temperature 37.1 C Heart Rate 97 Heart Rate [ 87 98 Monitoring electrodes] Respiratory 16 16 Rate Blood Pressure Blood Pressure 141/93 H 164/84 H [Left Brachial artery] O2 Saturation 100 95 12/01/19 12/01/19 12/01/19 13:00 14:00 16:00 Temperature 37.5 C Heart Rate Heart Rate [ 95 86 78 Monitoring electrodes] Respiratory 20 16 19 Rate Blood Pressure Blood Pressure 166/79 H 152/95 H 149/70 H [Left Brachial artery] O2 Saturation 93 95 98 12/01/19 17:00 Temperature Heart Rate Heart Rate [ 89 Monitoring electrodes] Respiratory 17 Rate Blood Pressure Blood Pressure 135/76 H [Left Brachial artery] O2 Saturation 95 Oxygen O2 Source [Without Activity] Nasal cannula O2 Source Nasal cannula I&O (Last 24 Hrs): Intake and Output Totals x24h 11/29/19 11/30/19 12/01/19 23:59 23:59 23:59 Intake Total 1420 4966.567 Output Total 1425 Balance 1420 3541.567 General: Other (Lethargic) HEENT: Mucous membr. moist/pink, Other (Wearing O2 and BIPAP mask earlier.) Neck: Supple, Other (Obese, cannot eval for JVD) Neuro: Non Focal, Other (Looses her train of thought) Cardiovascular: Other (Distant heart sounds) Respiratory: No respiratory distress, Breath sounds nml, Other (Poor air movement) Abdomen: Soft, Other (Obese with a pannus) Genitourinary: Other (Blanco in place) Extremities: Other (1+ edema) Skin: No significant lesion (Has a rash of back, has a grade 1 decubitus) - Results Results: Laboratory Results WBC 5.8 x10^3/uL (4.8-10.8) 12/01/19 05:54 RBC 3.32 10^6/uL (4.20-5.40) L 12/01/19 05:54 Hgb 9.8 g/dL (12.0-16.0) L 12/01/19 05:54 Hct 34.2 % (37.0-47.0) L 12/01/19 05:54 MCV 103.0 fL (81.0-99.0) H 12/01/19 05:54 MCH 29.5 pg (27.0-31.0) 12/01/19 05:54 MCHC 28.7 g/dL (32.0-36.0) L 12/01/19 05:54 RDW 13.1 % (12.0-15.0) 12/01/19 05:54 Plt Count 145 10^3/uL (130-450) 12/01/19 05:54 MPV 10.9 fL (7.9-10.8) H 12/01/19 05:54 Neut # (Auto) 4.2 10^3/uL (1.5-6.6) 12/01/19 05:54 Lymph # (Auto) 0.8 10^3/uL (1.5-3.5) L 12/01/19 05:54 [place] # (Auto) 0.7 10^3/uL (0.0-1.0) 12/01/19 05:54 Eos # (Auto) 0.1 10^3/uL (0.0-0.7) 12/01/19 05:54 Baso # (Auto) 0.0 10^3/uL (0.0-0.1) 12/01/19 05:54 Absolute Nucleated RBC 0.00 x10^3/uL 12/01/19 05:54 Nucleated RBC % 0.0 /100WBC 12/01/19 05:54 Manual Slide Review Indicated 11/30/19 16:30 Platelet Estimate NORMAL (130-450,000) (NORMAL) 11/30/19 16:30 Platelet Morphology NORMAL APPEARANCE (NORMAL) 11/30/19 16:30 RBC Morph Micro Appear 1+ ANISOCYTOSIS (NORMAL) 1+ HYPOCHROMASIA (NORMAL) 2+ STOMATOCYTES (NORMAL) 1+ BASO STIPPLING (NORMAL) 11/30/19 16:30 RBC Morph Micro Appear 1+ ANISOCYTOSIS (NORMAL) 1+ HYPOCHROMASIA (NORMAL) 2+ STOMATOCYTES (NORMAL) 1+ BASO STIPPLING (NORMAL) 11/30/19 16:30 RBC Morph Micro Appear 1+ ANISOCYTOSIS (NORMAL) 1+ HYPOCHROMASIA (NORMAL) 2+ STOMATOCYTES (NORMAL) 1+ BASO STIPPLING (NORMAL) 11/30/19 16:30 RBC Morph Micro Appear 1+ ANISOCYTOSIS (NORMAL) 1+ HYPOCHROMASIA (NORMAL) 2+ STOMATOCYTES (NORMAL) 1+ BASO STIPPLING (NORMAL) 11/30/19 16:30 PT 13.0 secs (9.9-12.6) H 11/30/19 16:30 INR 1.2 (0.8-1.2) 11/30/19 16:30 APTT 33.3 secs (24.9-33.3) 11/30/19 16:30 Bld Gas Analysis Time 0712/01/19 07:25 Sample Site RIGHT RADIAL 12/01/19 07:25 ABG pH 7.34 (7.35-7.45) L 12/01/19 07:25 ABG pCO2 64 mmHg (34-45) H* 12/01/19 07:25 ABG pO2 61 mmHg (80-100) L 12/01/19 07:25 ABG HCO3 33.8 mmol/L (22.0-26.0) H 12/01/19 07:25 ABG Total CO2 35.7 MMOL/L (21.0-29.0) H 12/01/19 07:25 ABG O2 Saturation 92 % (94-98) L 12/01/19 07:25 ABG Base Excess 6.4 mmol/L (-2.0-3.0) H 12/01/19 07:25 Nelson Test POSITIVE 12/01/19 07:25 O2 Delivery Device BiPAP 12/01/19 07:25 O2 Liters/Min 4.00 LPM 11/30/19 18:17 Vent Mode SYNCHRONOUS/TIMES 11/30/19 23:37 FiO2 55.00 12/01/19 07:25 PEEP 5 cmH2O 11/30/19 23:37 EPAP 5 cmH2O 12/01/19 07:25 IPAP 12 cmH2O 12/01/19 07:25 Sodium 143 mmol/L (135-145) 12/01/19 05:54 Potassium 4.5 mmol/L (3.5-5.0) 12/01/19 05:54 Chloride 100 mmol/L (101-111) L 12/01/19 05:54 Carbon Dioxide 34 mmol/L (21-32) H 12/01/19 05:54 Anion Gap 9.0 (6-13) 12/01/19 05:54 BUN 42 mg/dL (6-20) H 12/01/19 05:54 Creatinine 1.6 mg/dL (0.4-1.0) H 12/01/19 05:54 Estimated GFR (MDRD) 31 (>89) L 12/01/19 05:54 Glucose 170 mg/dL (70-100) H 12/01/19 05:54 Glycated Hemoglobin 6.6 % (4.6-6.2) H 12/01/19 05:54 Estim Average Glucose 143 (70-100) H 12/01/19 05:54 Lactic Acid 1.2 mmol/L (0.5-2.2) 11/30/19 16:30 Calcium 8.4 mg/dL (8.5-10.3) L 12/01/19 05:54 Total Bilirubin 0.5 mg/dL (0.2-1.0) 11/30/19 16:30 AST 13 IU/L (10-42) 11/30/19 16:30 ALT < 10 IU/L (10-60) L 11/30/19 16:30 Alkaline Phosphatase 61 IU/L (42-121) 11/30/19 16:30 Total Creatine Kinase 24 IU/L (22-269) 11/30/19 16:30 Troponin I High Sens 10.1 ng/L (2.3-14.8) 11/30/19 16:30 B-Natriuretic Peptide 254 pg/mL (5-100) H 11/30/19 16:30 Total Protein 7.1 g/dL (6.7-8.2) 11/30/19 16:30 Albumin 3.4 g/dL (3.2-5.5) 11/30/19 16:30 Globulin 3.7 g/dL (2.1-4.2) 11/30/19 16:30 Albumin/Globulin Ratio 0.9 (1.0-2.2) L 11/30/19 16:30 Lipase 24 U/L (22-51) 11/30/19 16:30 TSH 2.05 uIU/mL (0.34-5.60) 12/01/19 05:37 Urine Color YELLOW 11/30/19 16:45 Urine Clarity CLEAR (CLEAR) 11/30/19 16:45 Urine pH 5.5 PH (5.0-7.5) 11/30/19 16:45 Ur Specific [place] 1.025 (1.002-1.030) 11/30/19 16:45 Urine Protein 30 mg/dL (NEGATIVE) H 11/30/19 16:45 Urine Glucose (UA) NEGATIVE mg/dL (NEGATIVE) 11/30/19 16:45 Urine Ketones NEGATIVE mg/dL (NEGATIVE) 11/30/19 16:45 Urine Occult Blood SMALL (NEGATIVE) H 11/30/19 16:45 Urine Nitrite NEGATIVE (NEGATIVE) 11/30/19 16:45 Urine Bilirubin NEGATIVE (NEGATIVE) 11/30/19 16:45 Urine Urobilinogen 0.2 (NORMAL) E.U./dL (NORMAL) 11/30/19 16:45 Ur Leukocyte Esterase SMALL (NEGATIVE) H 11/30/19 16:45 Urine RBC 11-25 /HPF (0-5) H 11/30/19 16:45 Urine WBC >25 /HPF (0-5) H 11/30/19 16:45 Urine WBC Clumps PRESENT 11/30/19 16:45 Ur Epithelial Cells RARE Transitional /HPF (<= Few) 11/30/19 16:45 Ur Squamous Epith Cells RARE Squamous (<= Few) 11/30/19 16:45 Urine Bacteria Many /HPF (None Seen) H 11/30/19 16:45 Urine Yeast PRESENT 11/30/19 16:45 Ur Microscopic Review INDICATED 11/30/19 16:45 Urine Culture Comments INDICATED 11/30/19 16:45 Nasal Screen MRSA (PCR) NEGATIVE (NEGATIVE) 11/30/19 20:00 Influenza A (Rapid) Negative (Negative) 11/30/19 17:00 Influenza B (Rapid) Negative (Negative) 11/30/19 17:00 - Procedures Procedures: Procedures INSERTION OF INFUSION DEV INTO L SUBCLAV VEIN, PERC APPROACH (12/31/18) INSERTION OF INFUSION DEV INTO SUP VENA CAVA, PERC APPROACH (02/16/19) TRANSFUSE NONAUT RED BLOOD CELLS IN PERIPH VEIN, PERC (05/30/19) ULTRASONOGRAPHY OF RIGHT SUBCLAVIAN VEIN, GUIDANCE (12/31/18)
--- NOTE | 2019-12-01 18:11 | PHARMACY PROGRESS NOTE ---
- Therapy Status Vancomycin regimen day #: 1 Therapy status: Awaiting steady state Basis for treatment: Empirical Treatment indication: Pneumonia Trough goal: 15-20 Concurrent antibiotics: meropenem - CATY Risk Risk level for Acute Kidney Injury: High Acute Kidney Injury risk factors: Baseline CrCl <50, Wt >100kg or BMI >40, Goal trough >15, Chronic baseline hypertension, Diabetes, Admission to ICU - Monitoring and Recommendation Clinical response to treatment: I&O Previous 24 hours 11/29/19 11/30/19 12/01/19 23:59 23:59 23:59 Intake Total 1420 4966.567 Output Total 1575 Balance 1420 3391.567 Lab Results 12/01/19 11/30/19 05:54 16:30 BUN 42 H 40 H Creatinine 1.6 H 1.7 H Estimated GFR (MDRD) 31 L 29 L Cultures 11/30/19 16:30 Blood Blood Culture - Preliminary NO GROWTH AFTER 1 DAY 11/30/19 16:25 Blood Blood Culture - Preliminary NO GROWTH AFTER 1 DAY 11/30/19 16:45 Urine,Catheterized Urine Culture - Preliminary Monitoring plan: Daily serum creatinine, Draw trough early Next trough due prior to maintenance dose #: 2 Next trough due (date/time): 12/03/2019 at 0930 Areas for additional monitoring: IV to PO when appropriate, Therapy de- escalation based on culture results, Acute Kidney Injury (Dosing per protocol; cautioulsy 2/2 renal status- acute on chronic renal failure)
[2019-12-01] MEDS ORDERED: RIVAROXABAN 15 MG TABLET PO SCH (18:42)
[2019-12-01] MEDS: ATORVASTATIN 40 MG TABLET PO SCH (20:38)
[2019-12-01] MEDS ORDERED: ATORVASTATIN 40 MG TABLET PO SCH (21:00)
[2019-12-02] MEDS: MEROPENEM 1 GM in SODIUM CHLORIDE 0.9% MINIBAG 100 ML IV SCH ×3 (01:19→23:54)
[2019-12-02] MEDS: SODIUM CHLORIDE FLUSH 0.9% 10 ML SYRINGE IVP SCH ×3 (02:27→17:11)
[2019-12-02 05:06] LABS: BASOPHILS % (AUTO) 0.2 %; EOSINOPHILS # (AUTO) 0.1 10^3/uL (0.0-0.7); EOSINOPHILS % (AUTO) 2.1 %; HGB - HEMOGLOBIN 9.6 g/dL (12.0-16.0); LYMPHOCYTES # (AUTO) 1.1 10^3/uL (1.5-3.5); LYMPHOCYTES % (AUTO) 22.1 %; MEAN CORPUSCULAR HEMOGLOBIN 29.4 pg (27.0-31.0); MEAN CORPUSCULAR HGB CONC 29.4 g/dL (32.0-36.0); MEAN CORPUSCULAR VOLUME 99.7 fL (81.0-99.0); MEAN PLATELET VOLUME 10.5 fL (7.9-10.8); MONOCYTES # (AUTO) 0.6 10^3/uL (0.0-1.0); MONOCYTES % (AUTO) 12.4 %; NEUTROPHILS % (AUTO) 62.1 %; PLT - PLATELET COUNT 138 10^3/uL (130-450); RED BLOOD COUNT 3.27 10^6/uL (4.20-5.40); RED CELL DISTRIBUTION WIDTH 13.1 % (12.0-15.0); WHITE BLOOD COUNT 4.8 x10^3/uL (4.8-10.8)
[2019-12-02 05:16] LABS: CALCIUM 8.4 mg/dL (8.5-10.3); CREATININE 1.3 mg/dL (0.4-1.0)
[2019-12-02] MEDS: SODIUM CHLORIDE 0.9% 1,000 ML IV SCH ×2 (05:25→17:14)
[2019-12-02] MEDS: LEVOTHYROXINE 100 MCG TABLET PO SCH (06:32)
[2019-12-02] MEDS: PANTOPRAZOLE 40 MG VIAL IVP SCH (06:32)
[2019-12-02] MEDS: SODIUM CHLORIDE FLUSH 0.9% 10 ML SYRINGE IVP PRN (06:32)
[2019-12-02] MEDS: polyethylene glycoL 3350 17 GM PACKET PO SCH (08:56)
[2019-12-02] MEDS: METOPROLOL SUCCINATE 50 MG TABLET PO SCH (08:57)
[2019-12-02] MEDS: ISOSORBIDE MONONITRATE ER 30 MG TABLET PO SCH (08:57)
[2019-12-02] MEDS: INSULIN GLARGINE 300 UNIT/3 ML PEN SUBQ SCH ×2 (08:59→20:12)
[2019-12-02] MEDS: NYSTATIN POWDER 15 GM TOP SCH ×2 (09:03→20:13)
[2019-12-02] MEDS: ZINC OXIDE 20% OINT 30 GM TUBE TOP PRN ×3 (09:04→20:13)
[2019-12-02] MEDS: INSULIN ASPART 300 UNIT/3 ML PEN SUBQ SCH ×4 (09:04→20:12)
[2019-12-02] MEDS: ACETAMINOPHEN 325 MG TABLET PO PRN ×2 (09:24→15:06)
[2019-12-02 09:42] LABS: ABG BASE EXCESS 9.1 mmol/L (-2.0-3.0); ABG HCO3 35.5 mmol/L (22.0-26.0); ABG OXYGEN SATURATION 91 % (94-98); ABG PCO2 58 mmHg (34-45); ABG PO2 59 mmHg (80-100); ABG TCO2 37.3 MMOL/L (21.0-29.0); ALLEN TEST POSITIVE
[2019-12-02] MEDS: FERROUS SULFATE 325 MG TABLET PO SCH (12:32)
--- NOTE | 2019-12-02 14:00 | PROVIDER PROGRESS NOTE ---
Subjective - Prog Note Date Prog Note Date: 12/02/19 Prog Note Time: 14:07 - Subjective Subjective: I am the new hospitalist on service. She presented as severe metabolic encephalopathy with hypoventilation. She was found to have CO2 narcosis, weakness and confusion from UTI, and volume depletion. Last year she was admitted, discharged to long-term facility for rehab. She improved, but is been slowly going downhill again after home health, PT intervention. She had a UTI last month and did not seem to recover. BiPAP was started and she was placed in the ICU. She is still in ICU. She improved somewhat by November 30 and was able to come off BiPAP to eat. Last night kept on BiPAP. This morning she is weak, but much more alert. Repeat blood gas shows a pH of 7.4, PCO2 58, PO2 59 on Oxymizer. At home she is on trilogy. She is described as being compliant with her trilogy. Current Medications - Current Medications Current Medications: Active Medications Acetaminophen (Tylenol) 650 mg PO Q4HR PRN PRN Reason: Pain or Fever > 38C (100.4F) Last Admin: 12/02/19 09:24 Dose: 650 mg Atorvastatin Calcium (Lipitor) 40 mg PO QPM [facility] Last Admin: 12/01/19 20:38 Dose: 40 mg Ferrous Sulfate (Feosol) 325 mg PO 1200 [facility] Last Admin: 12/02/19 12:32 Dose: 325 mg Sodium Chloride (Normal Saline 0.9%) 1,000 mls @ 83 mls/hr IV .Q12H3M [facility] Last Infusion: 12/02/19 13:00 Dose: 83 mls/hr Vancomycin HCl 1.75 gm/ Sodium (Chloride) 500 mls @ 250 mls/hr IV Q48H [facility] Last Infusion: 12/01/19 11:40 Dose: Infused Meropenem 1 gm/ Sodium (Chloride) 100 mls @ 200 mls/hr IV Q12H [facility] Last Infusion: 12/02/19 12:56 Dose: Infused Insulin Aspart (Novolog) 1 - 9 unit SUBQ 0800,1200,1700,2100 [facility]; Protocol Last Admin: 12/02/19 12:32 Dose: 1 unit Insulin Glargine (Lantus Solostar) 10 unit SUBQ BID [facility] Last Admin: 12/02/19 08:59 Dose: 10 unit Isosorbide Mononitrate (Imdur) 30 mg PO DAILY [facility] Last Admin: 12/02/19 08:57 Dose: 30 mg Levothyroxine Sodium (Synthroid) 150 mcg PO QDAC [facility] Last Admin: 12/02/19 06:32 Dose: 150 mcg Metoprolol Succinate (Toprol Xl) 50 mg PO DAILY [facility] Last Admin: 12/02/19 08:57 Dose: 50 mg Multi-Ingredient Ointment (Zinc Oxide) 1 applic TOP PRN PRN PRN Reason: Skin Care Last Admin: 12/02/19 09:04 Dose: 1 applic Nystatin (Nystop) 1 applic TOP BID [facility] Last Admin: 12/02/19 09:03 Dose: 1 applic Pantoprazole Sodium (Protonix) 40 mg IVP QDAC [facility] Last Admin: 12/02/19 06:32 Dose: 40 mg Polyethylene Glycol (Miralax) 17 gm PO DAILY [facility] Last Admin: 12/02/19 08:56 Dose: 17 gm Rivaroxaban (Xarelto) 15 mg PO 1700 [facility] Last Admin: 12/01/19 17:22 Dose: 15 mg Sodium Chloride (Normal Saline Flush 0.9%) 10 ml IVP PRN PRN PRN Reason: NEEDED PER PROVIDER ORDERS Last Admin: 12/02/19 06:32 Dose: 10 ml Sodium Chloride (Normal Saline Flush 0.9%) 10 ml IVP 0100,0900,1700 [facility] Last Admin: 12/02/19 09:04 Dose: Not Given Atorvastatin Calcium 40 mg PO QPM 11/13/17 HYDROcod/ACETAM 5/325 [[place] 5/325] 0.5 - 1 tab PO TID PRN 11/13/17 Rivaroxaban [Xarelto] 15 mg PO QDDINNER 11/05/18 Ferrous Sulfate 325 mg PO DAILYWM 05/30/19 Insulin 70/30 Human [NovoLIN] 30 unit SUBQ DAILY 05/30/19 Ipratropium/Albuterol Sulfate [Iprat-Albut 0.5-3(2.5) mg/3 ml] 3 ml INH BID 05/30/19 Levothyroxine Sodium [Synthroid] 150 mcg PO QDAC 05/30/19 Magnesium Hydroxide [Milk of Magnesia] 2,400 mg PO QPM PRN 05/30/19 Omeprazole 20 mg PO QDAC 05/30/19 Furosemide 20 mg PO BID 12/01/19 Insulin 70/30 Human [NovoLIN] 25 units SUBQ QPM 12/01/19 Isosorbide Mononitrate ER [Imdur] 30 mg PO DAILY 12/01/19 Metoprolol Succinate [Toprol Xl] 50 mg PO DAILY 12/01/19 Objective - Vital Signs/Intake & Output Reviewed Vital Signs: Yes Vital Signs: Vital Signs x48h Temp Pulse Pulse Resp BP Pulse Ox 12/02/19 13:00 76 15 135/70 H 95 12/02/19 12:15 37 C 12/02/19 12:00 72 19 130/62 94 12/02/19 11:00 72 24 146/72 H 12/02/19 10:00 78 20 139/62 H 93 12/02/19 09:00 98 18 165/83 H 92 12/02/19 08:00 36.4 C L 71 20 167/79 H 96 12/02/19 07:45 77 12/02/19 07:00 88 21 169/78 H 98 12/02/19 06:00 36.8 C 71 21 154/86 H 96 Intake & Output: Intake & Output 11/29/19 11/30/19 12/01/19 12/02/19 23:59 23:59 23:59 23:59 Intake Total 1420 5116.567 1903.917 Output Total 2075 2175 Balance 1420 3041.567 -271.083 - Objective General Appearance: positive: No acute distress, Other (She is an elderly female, does respond to voice and will look at me, but she seems "out of it". She can speak 2 or 3 sentences before starting to get short of breath. She is asking for her daughter.) Eyes Bilateral: positive: PERRL, EOMI ENT: positive: Pharynx nml Neck: positive: No JVD Respiratory: positive: Chest non-tender, No respiratory distress, Rhonchi. negative: Wheezes, Rales Cardiovascular: positive: Irregularly irregular. negative: Gallop/S4, Friction rub Abdomen: positive: Non-tender, Nml bowel sounds, No distention. negative: Guarding, Rebound Skin: positive: Warm, Dry, Pallor, Other (She is getting skin care with heels off the bed, nursing is trying to protect her bony prominences, using mechanical lives, transfer sheet, and semi-Fowlers. Continues to have skin breakdown of [place] east candidiasis in the intertriginous folds. Has lost sheets of skin over both buttocks and sacral area such as you get with scalding from diaper rash. This was present on admission.) Extremities: positive: Non-tender, Full ROM, Pedal edema (minimal. she hates the SCD and wants them off) Neurologic/Psychiatric: positive: CN's nml (2-12), Motor nml, Disoriented to person, Disoriented to time, Weakness - Lab Results Fish Bones: 12/02/19 04:38 12/02/19 04:38 Other Labs: Lab Results x24hrs 12/02/19 12/02/19 12/02/19 Range/Units 12:07 09:30 08:09 WBC (4.8-10.8) x10^3/uL RBC (4.20-5.40) 10^6/uL Hgb (12.0-16.0) g/dL Hct (37.0-47.0) % MCV (81.0-99.0) fL MCH (27.0-31.0) pg MCHC (32.0-36.0) g/dL RDW (12.0-15.0) % Plt Count (130-450) 10^3/uL MPV (7.9-10.8) fL Neut # (Auto) (1.5-6.6) 10^3/uL Lymph # (Auto) (1.5-3.5) 10^3/uL [place] # (Auto) (0.0-1.0) 10^3/uL Eos # (Auto) (0.0-0.7) 10^3/uL Baso # (Auto) (0.0-0.1) 10^3/uL Absolute Nucleated RBC x10^3/uL Nucleated RBC % /100WBC Bld Gas Analysis Time 0930 Sample Site RIGHT RADIAL ABG pH 7.40 (7.35-7.45) ABG pCO2 58 H (34-45) mmHg ABG pO2 59 L (80-100) mmHg ABG HCO3 35.5 H (22.0-26.0) mmol/L ABG Total CO2 37.3 H (21.0-29.0) MMOL/L ABG O2 Saturation 91 L (94-98) % ABG Base Excess 9.1 H (-2.0-3.0) mmol/L Nelson Test POSITIVE O2 Delivery Device OXYMIZER O2 Liters/Min 4.00 LPM Sodium (135-145) mmol/L Potassium (3.5-5.0) mmol/L Chloride (101-111) mmol/L Carbon Dioxide (21-32) mmol/L Anion Gap (6-13) BUN (6-20) mg/dL Creatinine (0.4-1.0) mg/dL Estimated GFR (MDRD) (>89) Glucose (70-100) mg/dL POC Whole Bld Glucose 169 H 131 H (70 - 100) mg/dL Calcium (8.5-10.3) mg/dL 12/02/19 12/02/19 12/01/19 Range/Units 04:38 04:38 20:37 WBC 4.8 (4.8-10.8) x10^3/uL RBC 3.27 L (4.20-5.40) 10^6/uL Hgb 9.6 L (12.0-16.0) g/dL Hct 32.6 L (37.0-47.0) % MCV 99.7 H (81.0-99.0) fL MCH 29.4 (27.0-31.0) pg MCHC 29.4 L (32.0-36.0) g/dL RDW 13.1 (12.0-15.0) % Plt Count 138 (130-450) 10^3/uL MPV 10.5 (7.9-10.8) fL Neut # (Auto) 3.0 (1.5-6.6) 10^3/uL Lymph # (Auto) 1.1 L (1.5-3.5) 10^3/uL [place] # (Auto) 0.6 (0.0-1.0) 10^3/uL Eos # (Auto) 0.1 (0.0-0.7) 10^3/uL Baso # (Auto) 0.0 (0.0-0.1) 10^3/uL Absolute Nucleated RBC 0.00 x10^3/uL Nucleated RBC % 0.0 /100WBC Bld Gas Analysis Time Sample Site ABG pH (7.35-7.45) ABG pCO2 (34-45) mmHg ABG pO2 (80-100) mmHg ABG HCO3 (22.0-26.0) mmol/L ABG Total CO2 (21.0-29.0) MMOL/L ABG O2 Saturation (94-98) % ABG Base Excess (-2.0-3.0) mmol/L Nelson Test O2 Delivery Device O2 Liters/Min LPM Sodium 139 (135-145) mmol/L Potassium 4.0 (3.5-5.0) mmol/L Chloride 97 L (101-111) mmol/L Carbon Dioxide 32 (21-32) mmol/L Anion Gap 10.0 (6-13) BUN 32 H (6-20) mg/dL Creatinine 1.3 H (0.4-1.0) mg/dL Estimated GFR (MDRD) 40 L (>89) Glucose 140 H (70-100) mg/dL POC Whole Bld Glucose 169 H (70 - 100) mg/dL Calcium 8.4 L (8.5-10.3) mg/dL ABX Reporting Has patient been on IV antibiotics over the past 48 hours?: Yes Assessment/Plan - Problem List (1) Metabolic encephalopathy Impression: Improving. She presented as obtunded yesterday, respiratory rate was 8. This is likely a combination of CO2 narcosis, weakness and confusion from her infection and volume depletion. BIPAP was started and she was admitted moris the ICU. She became more alert this a.m. and was able to feed herself when given breaks off the BIPAP unit. When the daughter arrived afternoon of 11/30, she confirmed that the patient's new baseline (after the stroke last year) is to have normal speech and be completely alert and oriented. She worsened as her measured serum PCO2 increased and she continues to need the BiPAP for ventilation with today's blood gas. There are no focal findings, she is moving all her extremities, is oriented x3. Continue with supportive care (2) Acute and chronic respiratory failure with hypercapnia Assessment/Plan: Patient requires home O2 and uses a trilogy machine at home. She was pulling this off over the last 2 days when her confusion was getting worse. Her admission ABG was 7.2/99/60. She was put on BIPAP. With treatment Her pH is improved to 7.4. PCO2 still a little high at 58. PO2 59. Continue BIPAP When she is asleep. She will need to stay in ICU. Continue nebs, steroids, treatment of pneumonia.I have asked her daughter to bring her trilogy in for tonight. She was done trilogy overnight, we will repeat blood gas tomorrow morning to see if the trilogy is working for her or not. She does not want intubation or CPR. (3) CAP (community acquired pneumonia) Assessment/Plan: IV antibiotics have been started.Day #2 of meropenem and vancomycin She does not make any sputum. (4) UTI (urinary tract infection) Assessment/Plan: She has had many many recurrent UTIs. Many of them had ESBL. Blood culture negative after 1 day, preliminary urine culture with enterococcus species. She been started on meropenem at admission.Day #2 (5) Chronic systolic congestive heart failure, NYHA class 3 Assessment/Plan: Her IV fluids were aggressive for the first several hours, now the IV rate is at 83/h in order to prevent CHF (6) Generalized weakness Assessment/Plan: This is related to #1 above. In general she is overall weaker with every admission, according to the daughter who is the caregiver. Patient has refused to go to a SNF after admissions in the past for PT. Initially it was because she just never wanted to be in a usp, but in reality it also has to do with finances. They do not have the money to pay for her to be in a long-term facility. The daughter is eager to have her mother get PT rehab at a SNF, perhaps after this hospitalization. (7) Acute on chronic renal failure Qualifiers: Chronic kidney disease stage: stage 3 (moderate) Assessment/Plan: Avoid nephrotoxins. Follow BMP daily. Creatinine 1.7 >1.6> 1.3 (8) Chronic indwelling Blanco catheter Assessment/Plan: She now needs this for incontinence and recurrent groin and buttock rashes, decubitus ulcers (9) Diabetes mellitus type 2 in obese Assessment/Plan: Patient was giving 70/30 of insulin at home. Here she was empirically put on Lantus 10 mg subcu twice daily plus a sliding scale of Reg Insulin. November 2: 144, 195, 155, 169 November 3: 131, 169 A1c is 6.6% She is awake enough during BiPAP breaks, to eat solid food on a diabetic diet. (10) Anemia Assessment/Plan: Likely to be anemia of chronic disease. Follow CBC daily. Hgb 11.3>9.9>9.6 today (11) History of stroke Assessment/Plan: The details of any residual deficit are not clear, this needs to be confirmed wi th the daughter, her caregiver. (12) Decubitus ulcer, buttock Qualifiers: Pressure injury stage: stage 1 Assessment/Plan: Topical treatment was ordered, plus turn and reposition. (13) Rash of back Assessment/Plan: Topical treatment is ordered. Vancomycin also should help this, if any se condary infection. 14) HTN Her home doses of Norvasc and Lasix are on hold because of low blood pressure and dehydration related to poor po intake and her infections. 15) Hypothyroidism Her home dose of Synthroid will be resumed with a good TSH level 16) Paroxysmal Afib There is a history of past A. fib and because there is been a prior stroke, will resume her Xarelto with dinner. She currently is in sinus rhythm on EKG and on telemetry, though. Since she is on Xarelto, I will stop her SCDs that she hates. Xarelto can function as anticoagulation for DVT prophylaxis
[2019-12-02] MEDS: oxyCODONE 5 MG TABLET PO PRN ×2 (16:35→21:19)
[2019-12-02] MEDS: RIVAROXABAN 15 MG TABLET PO SCH (16:36)
--- NOTE | 2019-12-02 18:12 | PHARMACY PROGRESS NOTE ---
- Therapy Status Vancomycin regimen day #: 2 Therapy status: Awaiting steady state Basis for treatment: Empirical Treatment indication: CAP Trough goal: 15-20 - CATY Risk Risk level for Acute Kidney Injury: High Acute Kidney Injury risk factors: Baseline CrCl <50, Wt >100kg or BMI >40, Goal trough >15, Chronic baseline hypertension, Diabetes, Admission to ICU - Monitoring and Recommendation Clinical response to treatment: I&O Previous 24 hours 11/30/19 12/01/19 12/02/19 23:59 23:59 23:59 Intake Total 1420 5116.567 2255.284 Output Total 2075 2350 Balance 1420 3041.567 -94.716 Lab Results 12/02/19 12/01/19 11/30/19 04:38 05:54 16:30 BUN 32 H 42 H 40 H Creatinine 1.3 H 1.6 H 1.7 H Estimated GFR (MDRD) 40 L 31 L 29 L Cultures 11/30/19 16:30 Blood Blood Culture - Preliminary NO GROWTH AFTER 2 DAYS 11/30/19 16:25 Blood Blood Culture - Preliminary NO GROWTH AFTER 2 DAYS 11/30/19 16:45 Urine,Catheterized Urine Culture - Preliminary Monitoring plan: Daily serum creatinine, Draw trough early Next trough due prior to maintenance dose #: 3 Next trough due (date/time): 12/03/2019 at 0600 Areas for additional monitoring: IV to PO when appropriate, Therapy de- escalation based on culture results, Acute Kidney Injury (renal function imporving ; dose adjusted per protocol)
[2019-12-02] MEDS: VANCOMYCIN INJ 1.75 GM in SODIUM CHLORIDE 0.9% 500 ML IV SCH (18:29)
[2019-12-02] MEDS: ATORVASTATIN 40 MG TABLET PO SCH (20:18)
[2019-12-03] MEDS: SODIUM CHLORIDE FLUSH 0.9% 10 ML SYRINGE IVP SCH ×3 (01:17→18:25)
[2019-12-03] MEDS: ACETAMINOPHEN 325 MG TABLET PO PRN ×2 (04:29→21:41)
[2019-12-03 05:23] LABS: BASOPHILS % (AUTO) 0.8 %; EOSINOPHILS # (AUTO) 0.2 10^3/uL (0.0-0.7); EOSINOPHILS % (AUTO) 3.1 %; HGB - HEMOGLOBIN 10.6 g/dL (12.0-16.0); LYMPHOCYTES # (AUTO) 1.4 10^3/uL (1.5-3.5); LYMPHOCYTES % (AUTO) 27.2 %; MEAN CORPUSCULAR HEMOGLOBIN 29.9 pg (27.0-31.0); MEAN CORPUSCULAR VOLUME 103.1 fL (81.0-99.0); MEAN PLATELET VOLUME 11.2 fL (7.9-10.8); MONOCYTES # (AUTO) 0.7 10^3/uL (0.0-1.0); MONOCYTES % (AUTO) 13.4 %; NEUTROPHILS # (AUTO) 2.8 10^3/uL (1.5-6.6); NEUTROPHILS % (AUTO) 54.5 %; PLT - PLATELET COUNT 129 10^3/uL (130-450); RED BLOOD COUNT 3.55 10^6/uL (4.20-5.40); RED CELL DISTRIBUTION WIDTH 13.3 % (12.0-15.0); WHITE BLOOD COUNT 5.1 x10^3/uL (4.8-10.8)
[2019-12-03 05:26] LABS: CALCIUM 8.6 mg/dL (8.5-10.3); CREATININE 1.4 mg/dL (0.4-1.0)
[2019-12-03 06:19] LABS: ABG BASE EXCESS 5.1 mmol/L (-2.0-3.0); ABG HCO3 31.7 mmol/L (22.0-26.0); ABG OXYGEN SATURATION 93 % (94-98); ABG PCO2 57 mmHg (34-45); ABG PH 7.36 (7.35-7.45); ABG PO2 71 mmHg (80-100); ABG TCO2 33.5 MMOL/L (21.0-29.0); ALLEN TEST POSITIVE
[2019-12-03] MEDS: SODIUM CHLORIDE FLUSH 0.9% 10 ML SYRINGE IVP PRN (06:23)
[2019-12-03] MEDS: PANTOPRAZOLE 40 MG VIAL IVP SCH (06:23)
[2019-12-03] MEDS: LEVOTHYROXINE 100 MCG TABLET PO SCH (06:23)
[2019-12-03] MEDS: SODIUM CHLORIDE 0.9% 1,000 ML IV SCH ×2 (07:33→21:43)
[2019-12-03] MEDS: INSULIN ASPART 300 UNIT/3 ML PEN SUBQ SCH ×4 (07:48→20:19)
[2019-12-03] MEDS: polyethylene glycoL 3350 17 GM PACKET PO SCH (08:10)
[2019-12-03] MEDS: ISOSORBIDE MONONITRATE ER 30 MG TABLET PO SCH (08:10)
[2019-12-03] MEDS: METOPROLOL SUCCINATE 50 MG TABLET PO SCH (08:10)
[2019-12-03] MEDS: INSULIN GLARGINE 300 UNIT/3 ML PEN SUBQ SCH ×2 (08:16→20:18)
[2019-12-03] MEDS: NYSTATIN POWDER 15 GM TOP SCH ×2 (09:00→20:16)
[2019-12-03] MEDS: FERROUS SULFATE 325 MG TABLET PO SCH (11:57)
[2019-12-03] MEDS: MEROPENEM 1 GM in SODIUM CHLORIDE 0.9% MINIBAG 100 ML IV SCH (11:57)
--- NOTE | 2019-12-03 12:05 | PROVIDER PROGRESS NOTE ---
Subjective - Prog Note Date Prog Note Date: 12/03/19 Prog Note Time: 12:07 - Subjective Pt reports feeling: No change Subjective: Tired. Wondering what her daughter is. Daughter is usually at the bedside 23/04 with her. This time daughter is taking a break and going home during the day and coming back to visit. Otherwise she has no new pain, no new complaints. Current Medications - Current Medications Current Medications: Active Medications Acetaminophen (Tylenol) 650 mg PO Q4HR PRN PRN Reason: Pain or Fever > 38C (100.4F) Last Admin: 12/03/19 04:29 Dose: 650 mg Atorvastatin Calcium (Lipitor) 40 mg PO QPM [facility] Last Admin: 12/02/19 20:18 Dose: 40 mg Ferrous Sulfate (Feosol) 325 mg PO 1200 [facility] Last Admin: 12/03/19 11:57 Dose: 325 mg Sodium Chloride (Normal Saline 0.9%) 1,000 mls @ 83 mls/hr IV .Q12H3M [facility] Last Admin: 12/03/19 07:33 Dose: 83 mls/hr Meropenem 1 gm/ Sodium (Chloride) 100 mls @ 200 mls/hr IV Q12H [facility] Last Admin: 12/03/19 11:57 Dose: 200 mls/hr Vancomycin HCl 1.75 gm/ Sodium (Chloride) 500 mls @ 250 mls/hr IV Q24H [facility] Last Infusion: 12/02/19 20:50 Dose: Infused Insulin Aspart (Novolog) 1 - 9 unit SUBQ 0800,1200,1700,2100 [facility]; Protocol Last Admin: 12/03/19 11:56 Dose: 1 unit Insulin Glargine (Lantus Solostar) 10 unit SUBQ BID [facility] Last Admin: 12/03/19 08:16 Dose: 10 unit Isosorbide Mononitrate (Imdur) 30 mg PO DAILY [facility] Last Admin: 12/03/19 08:10 Dose: 30 mg Lactobacillus Rhamnosus (Culturelle) 1 cap PO DAILY [facility] Levothyroxine Sodium (Synthroid) 150 mcg PO QDAC [facility] Last Admin: 12/03/19 06:23 Dose: 150 mcg Metoprolol Succinate (Toprol Xl) 50 mg PO DAILY [facility] Last Admin: 12/03/19 08:10 Dose: 50 mg Multi-Ingredient Ointment (Zinc Oxide) 1 applic TOP PRN PRN PRN Reason: Skin Care Last Admin: 12/02/19 20:13 Dose: 1 applic Nystatin (Nystop) 1 applic TOP BID [facility] Last Admin: 12/03/19 09:00 Dose: 1 applic Oxycodone HCl (Roxicodone) 5 mg PO Q4HR PRN PRN Reason: PAIN Last Admin: 12/02/19 21:19 Dose: 5 mg Pantoprazole Sodium (Protonix) 40 mg IVP QDAC [facility] Last Admin: 12/03/19 06:23 Dose: 40 mg Polyethylene Glycol (Miralax) 17 gm PO DAILY [facility] Last Admin: 12/03/19 08:10 Dose: 17 gm Rivaroxaban (Xarelto) 15 mg PO 1700 [facility] Last Admin: 12/02/19 16:36 Dose: 15 mg Sodium Chloride (Normal Saline Flush 0.9%) 10 ml IVP PRN PRN PRN Reason: NEEDED PER PROVIDER ORDERS Last Admin: 12/03/19 06:23 Dose: 10 ml Sodium Chloride (Normal Saline Flush 0.9%) 10 ml IVP 0100,0900,1700 [facility] Last Admin: 12/03/19 11:49 Dose: 10 ml Atorvastatin Calcium 40 mg PO QPM 11/13/17 HYDROcod/ACETAM 5/325 [Earp 5/325] 0.5 - 1 tab PO TID PRN 11/13/17 Rivaroxaban [Xarelto] 15 mg PO QDDINNER 11/05/18 Ferrous Sulfate 325 mg PO DAILYWM 05/30/19 Insulin 70/30 Human [NovoLIN] 30 unit SUBQ DAILY 05/30/19 Levothyroxine Sodium [Synthroid] 150 mcg PO QDAC 05/30/19 Omeprazole 20 mg PO QDAC 05/30/19 Furosemide 20 mg PO BID 12/01/19 Insulin 70/30 Human [NovoLIN] 25 units SUBQ QPM 12/01/19 Isosorbide Mononitrate ER [Imdur] 30 mg PO DAILY 12/01/19 Metoprolol Succinate [Toprol Xl] 50 mg PO DAILY 12/01/19 Nystatin Cream [Mycostatin Cream] 1 applic TOP DAILY 12/02/19 Zinc Oxide 1 applic TOP BID PRN 12/02/19 Objective - Vital Signs/Intake & Output Reviewed Vital Signs: Yes Vital Signs: Vital Signs x48h Temp Pulse Resp BP Pulse Ox 12/03/19 11:00 68 15 149/79 H 94 12/03/19 10:00 70 18 140/69 H 92 12/03/19 09:00 75 13 145/79 H 94 12/03/19 08:00 36.6 C 84 17 172/90 H 96 12/03/19 07:00 65 17 125/61 91 L 12/03/19 06:00 60 16 134/62 H 96 12/03/19 05:00 68 14 152/72 H 95 12/03/19 04:00 37 C 66 13 152/73 H 99 Intake & Output: Intake & Output 11/30/19 12/01/19 12/02/19 12/03/19 23:59 23:59 23:59 23:59 Intake Total 1420 5116.567 3963.184 1669.483 Output Total 2075 2625 610 Balance 1420 3041.567 5180.882 3563.483 - Objective General Appearance: positive: No acute distress, Alert Eyes Bilateral: positive: PERRL ENT: positive: Pharynx nml, Other (partial dentures) Neck: negative: Stiff neck, Carotid bruit Respiratory: positive: Chest non-tender, No respiratory distress (unless we ask her to roll over or to sit. very sob w exertion then slowly recovers), Rhonchi. negative: Wheezes, Rales Cardiovascular: negative: Gallop/S4 Abdomen: positive: Non-tender, No organomegaly, Nml bowel sounds, No distention, Other (large, large panus with skin breakdown of old brigida in the folds.) Skin: positive: Other (Intertriginous brigida. This is of the groin, pannus. If you turn around she has lost all the skin off of both buttocks and a "scalding" type of pattern. She also had a small decubitus of the buttock. All of this is slowly improving. These were present on admission.) Extremities: positive: Non-tender, Full ROM (Passively. It takes a lot of effort on her part to follow through with range of motion. But if I lift up her leg, which is quite heavy, she has full range of motion in the knees ankles shoulders elbows), No pedal edema Neurologic/Psychiatric: positive: CN's nml (2-12), Motor nml, Disoriented to time, Weakness, Other (Memory loss) - Lab Results Fish Bones: 12/03/19 04:15 12/03/19 04:15 Other Labs: Lab Results x24hrs 12/03/19 12/03/19 12/03/19 Range/Units 11:46 07:46 06:05 WBC (4.8-10.8) x10^3/uL RBC (4.20-5.40) 10^6/uL Hgb (12.0-16.0) g/dL Hct (37.0-47.0) % MCV (81.0-99.0) fL MCH (27.0-31.0) pg MCHC (32.0-36.0) g/dL RDW (12.0-15.0) % Plt Count (130-450) 10^3/uL MPV (7.9-10.8) fL Neut # (Auto) (1.5-6.6) 10^3/uL Lymph # (Auto) (1.5-3.5) 10^3/uL [place] # (Auto) (0.0-1.0) 10^3/uL Eos # (Auto) (0.0-0.7) 10^3/uL Baso # (Auto) (0.0-0.1) 10^3/uL Absolute Nucleated RBC x10^3/uL Nucleated RBC % /100WBC Bld Gas Analysis Time 0612 Sample Site RIGHT RADIAL ABG pH 7.36 (7.35-7.45) ABG pCO2 57 H (34-45) mmHg ABG pO2 71 L (80-100) mmHg ABG HCO3 31.7 H (22.0-26.0) mmol/L ABG Total CO2 33.5 H (21.0-29.0) MMOL/L ABG O2 Saturation 93 L (94-98) % ABG Base Excess 5.1 H (-2.0-3.0) mmol/L Nelson Test POSITIVE O2 Delivery Device TRILOGY FiO2 9.00 EPAP 5 cmH2O IPAP 15 cmH2O Sodium (135-145) mmol/L Potassium (3.5-5.0) mmol/L Chloride (101-111) mmol/L Carbon Dioxide (21-32) mmol/L Anion Gap (6-13) BUN (6-20) mg/dL Creatinine (0.4-1.0) mg/dL Estimated GFR (MDRD) (>89) Glucose (70-100) mg/dL POC Whole Bld Glucose 159 H 143 H (70 - 100) mg/dL Calcium (8.5-10.3) mg/dL 12/03/19 12/03/19 12/02/19 Range/Units 04:15 04:15 20:06 WBC 5.1 (4.8-10.8) x10^3/uL RBC 3.55 L (4.20-5.40) 10^6/uL Hgb 10.6 L (12.0-16.0) g/dL Hct 36.6 L (37.0-47.0) % MCV 103.1 H (81.0-99.0) fL MCH 29.9 (27.0-31.0) pg MCHC 29.0 L (32.0-36.0) g/dL RDW 13.3 (12.0-15.0) % Plt Count 129 L (130-450) 10^3/uL MPV 11.2 H (7.9-10.8) fL Neut # (Auto) 2.8 (1.5-6.6) 10^3/uL Lymph # (Auto) 1.4 L (1.5-3.5) 10^3/uL [place] # (Auto) 0.7 (0.0-1.0) 10^3/uL Eos # (Auto) 0.2 (0.0-0.7) 10^3/uL Baso # (Auto) 0.0 (0.0-0.1) 10^3/uL Absolute Nucleated RBC 0.00 x10^3/uL Nucleated RBC % 0.0 /100WBC Bld Gas Analysis Time Sample Site ABG pH (7.35-7.45) ABG pCO2 (34-45) mmHg ABG pO2 (80-100) mmHg ABG HCO3 (22.0-26.0) mmol/L ABG Total CO2 (21.0-29.0) MMOL/L ABG O2 Saturation (94-98) % ABG Base Excess (-2.0-3.0) mmol/L Nelson Test O2 Delivery Device FiO2 EPAP cmH2O IPAP cmH2O Sodium 143 (135-145) mmol/L Potassium 3.9 (3.5-5.0) mmol/L Chloride 101 (101-111) mmol/L Carbon Dioxide 33 H (21-32) mmol/L Anion Gap 9.0 (6-13) BUN 35 H (6-20) mg/dL Creatinine 1.4 H (0.4-1.0) mg/dL Estimated GFR (MDRD) 37 L (>89) Glucose 129 H (70-100) mg/dL POC Whole Bld Glucose 253 H (70 - 100) mg/dL Calcium 8.6 (8.5-10.3) mg/dL 12/02/19 12/02/19 Range/Units 16:52 12:07 WBC (4.8-10.8) x10^3/uL RBC (4.20-5.40) 10^6/uL Hgb (12.0-16.0) g/dL Hct (37.0-47.0) % MCV (81.0-99.0) fL MCH (27.0-31.0) pg MCHC (32.0-36.0) g/dL RDW (12.0-15.0) % Plt Count (130-450) 10^3/uL MPV (7.9-10.8) fL Neut # (Auto) (1.5-6.6) 10^3/uL Lymph # (Auto) (1.5-3.5) 10^3/uL [place] # (Auto) (0.0-1.0) 10^3/uL Eos # (Auto) (0.0-0.7) 10^3/uL Baso # (Auto) (0.0-0.1) 10^3/uL Absolute Nucleated RBC x10^3/uL Nucleated RBC % /100WBC Bld Gas Analysis Time Sample Site ABG pH (7.35-7.45) ABG pCO2 (34-45) mmHg ABG pO2 (80-100) mmHg ABG HCO3 (22.0-26.0) mmol/L ABG Total CO2 (21.0-29.0) MMOL/L ABG O2 Saturation (94-98) % ABG Base Excess (-2.0-3.0) mmol/L Nelson Test O2 Delivery Device FiO2 EPAP cmH2O IPAP cmH2O Sodium (135-145) mmol/L Potassium (3.5-5.0) mmol/L Chloride (101-111) mmol/L Carbon Dioxide (21-32) mmol/L Anion Gap (6-13) BUN (6-20) mg/dL Creatinine (0.4-1.0) mg/dL Estimated GFR (MDRD) (>89) Glucose (70-100) mg/dL POC Whole Bld Glucose 184 H 169 H (70 - 100) mg/dL Calcium (8.5-10.3) mg/dL ABX Reporting Has patient been on IV antibiotics over the past 48 hours?: Yes Assessment/Plan - Problem List (1) Metabolic encephalopathy Impression: Improving but still slow to think and speak. Appropriate but can't remember getting here. She presented as obtunded 11/29 that had been slowly starting after a few weeks of being ill, respiratory rate was 8. This is likely a combination of CO2 narcosis, weakness and confusion from her infection and volume depletion. BIPAP was started and she was admitted to the ICU. She became more alert 3/ a.m. and was able to feed herself when given breaks off the BIPAP unit. When the daughter arrived afternoon of 11/30, she confirmed that the patient's new baseline (after the stroke last year) is to have normal speech and be completely alert and oriented. 12/01 She came off BiPAP. However blood gas shows a PCO2 of 58 off BiPAP. We elected to keep her on BiPAP when she was asleep. 12/02 Put on trilogy last night to see if trilogy mask is working and it is not. She is leaking. Unable to keep the mask on. That may be part of the problem why she is leading to CO2 narcosis at home. There are no focal findings, she is moving all her extremities, is oriented x3. Barely able to sit at the side of the bed today. Unable to stand. Continue with supportive care (2) Acute and chronic respiratory failure with hypercapnia Assessment/Plan: Patient requires home O2 and uses a trilogy machine at home. She was pulling t his off over the 2 days before admission when her confusion was getting worse. Her admission ABG was 7.2/99/60. She was put on BIPAP. With treatment her 3/3 pH was improved to 7.4. PCO2 was still a little high at 58. PO2 59. Continued BIPAP When she is asleep. She will need to stay in ICU bc of BiPAP. Continue nebs, steroids, treatment of pneumonia. Trilogy was brought in for last night's use. Found to be part of the problem and that is not working for her. Plan: Reassess trilogy mass (3) CAP (community acquired pneumonia) Assessment/Plan: IV antibiotics have been started.Day #3 of meropenem and vancomycin She does not make any sputum. (4) UTI (urinary tract infection) Assessment/Plan: She has had many many recurrent UTIs. Many of them had ESBL. Blood culture negative after 1 day, preliminary urine culture with enterococcus species. She been started on meropenem at admission. Day #3 (5) Chronic systolic congestive heart failure, NYHA class 3 Assessment/Plan: Her IV fluids were aggressive for the first several hours, now the IV rate is at 83/h in order to prevent CHF (6) Generalized weakness Assessment/Plan: This is related to #1 above. In general she is overall weaker with every admission, according to the daughter who is the caregiver. Patient has refused to go to a SNF after admissions in the past for PT. Initially it was because she just never wanted to be in a shelter, but in reality it also has to do with finances. They do not have the money to pay for her to be in a fpc facility. The daughter is eager to have her mother get PT rehab at a SNF, perhaps after this hospitalization. PT Evaluation ordered for today. She is very weak. The most she could do was sit up at the side of the bed with 2 physical therapist working with her. That just wiped her out. She really could not stand very well. Plan: Continue to work with physical therapy (7) Acute on chronic renal failure Qualifiers: Chronic kidney disease stage: stage 3 (moderate) Assessment/Plan: Avoid nephrotoxins. Follow BMP daily. Creatinine 1.7 >1.6> 1.3>1.4 (8) Chronic indwelling Blanco catheter Assessment/Plan: She now needs this for incontinence and recurrent groin and buttock rashes, decubitus ulcers (9) Diabetes mellitus type 2 in obese Assessment/Plan: Patient was giving 70/30 of insulin at home. Here she was empirically put on Lantus 10 mg subcu twice daily plus a sliding scale of Reg Insulin. November 2: 144, 195, 155, 169 November 3: 131, 169, 253 November 4: 143, 159 A1c is 6.6% She is awake enough during BiPAP breaks, to eat solid food on a diabetic diet. Plan: No change in medication at this time (10) Anemia Assessment/Plan: Likely to be anemia of chronic disease. Follow CBC daily. Hgb 11.3>9.9>9.6>10.6 today (11) History of stroke Assessment/Plan: The details of any residual deficit are not clear, this needs to be confirmed with the daughter, her caregiver. (12) Decubitus ulcer, buttock Qualifiers: Pressure injury stage: stage 1 Assessment/Plan: Topical treatment was ordered, plus turn and reposition. (13) Rash of back Assessment/Plan: Topical treatment is ordered. Vancomycin also should help this, if any secondary infection. 14) HTN Her home doses of Norvasc and Lasix are on hold because of low blood pressure a nd dehydration related to poor po intake and her infections. 15) Hypothyroidism Her home dose of Synthroid will be resumed with a good TSH level 16) Paroxysmal Afib There is a history of past A. fib and because there is been a prior stroke, will resume her Xarelto with dinner. She currently is in sinus rhythm on EKG and on telemetry, though. Since she is on Xarelto, I will stop her SCDs that she hates. Xarelto can function as anticoagulation for DVT prophylaxis
[2019-12-03] MEDS: oxyCODONE 5 MG TABLET PO PRN ×3 (12:55→20:30)
[2019-12-03] MEDS: RIVAROXABAN 15 MG TABLET PO SCH (16:51)
[2019-12-03] MEDS: LACTOBACILLUS RHAMNOSUS GG CAPSULE PO SCH (16:51)
[2019-12-03 18:11] LABS: VANCOMYCIN,TROUGH 18.1 ug/mL (10.0-20.0)
[2019-12-03] MEDS: VANCOMYCIN INJ 1.75 GM in SODIUM CHLORIDE 0.9% 500 ML IV SCH (18:26)
[2019-12-03] MEDS: ATORVASTATIN 40 MG TABLET PO SCH (20:13)
[2019-12-03] MEDS: ZINC OXIDE 20% OINT 30 GM TUBE TOP PRN (20:17)
[2019-12-04] MEDS: MEROPENEM 1 GM in SODIUM CHLORIDE 0.9% MINIBAG 100 ML IV SCH ×2 (00:13→11:44)
[2019-12-04] MEDS: PANTOPRAZOLE 40 MG VIAL IVP SCH (06:28)
[2019-12-04] MEDS: SODIUM CHLORIDE FLUSH 0.9% 10 ML SYRINGE IVP SCH ×3 (06:28→16:24)
[2019-12-04] MEDS: LEVOTHYROXINE 100 MCG TABLET PO SCH (06:33)
[2019-12-04] MEDS: oxyCODONE 5 MG TABLET PO PRN ×3 (07:22→21:29)
[2019-12-04] MEDS: INSULIN ASPART 300 UNIT/3 ML PEN SUBQ SCH ×4 (07:52→21:31)
[2019-12-04] MEDS: ISOSORBIDE MONONITRATE ER 30 MG TABLET PO SCH (08:07)
[2019-12-04] MEDS: polyethylene glycoL 3350 17 GM PACKET PO SCH (08:07)
[2019-12-04] MEDS: LACTOBACILLUS RHAMNOSUS GG CAPSULE PO SCH (08:08)
[2019-12-04] MEDS: METOPROLOL SUCCINATE 50 MG TABLET PO SCH (08:08)
[2019-12-04] MEDS: INSULIN GLARGINE 300 UNIT/3 ML PEN SUBQ SCH ×2 (08:11→21:32)
[2019-12-04 09:36] LABS: CREATININE 1.4 mg/dL (0.4-1.0)
[2019-12-04] MEDS ORDERED: LEVALBUTEROL 1.25 MG/3 ML NEB INH ONE (09:38)
[2019-12-04] MEDS: FUROSEMIDE 40 MG/4 ML VIAL IVP SCH (10:19)
[2019-12-04] MEDS: SODIUM CHLORIDE FLUSH 0.9% 10 ML SYRINGE IVP PRN (10:21)
[2019-12-04 10:28] LABS: BASOPHILS % (AUTO) 0.5 %; EOSINOPHILS # (AUTO) 0.2 10^3/uL (0.0-0.7); EOSINOPHILS % (AUTO) 2.5 %; HGB - HEMOGLOBIN 10.8 g/dL (12.0-16.0); LYMPHOCYTES # (AUTO) 0.8 10^3/uL (1.5-3.5); LYMPHOCYTES % (AUTO) 12.6 %; MEAN CORPUSCULAR HEMOGLOBIN 29.8 pg (27.0-31.0); MEAN CORPUSCULAR HGB CONC 29.3 g/dL (32.0-36.0); MEAN CORPUSCULAR VOLUME 101.7 fL (81.0-99.0); MEAN PLATELET VOLUME 10.6 fL (7.9-10.8); MONOCYTES # (AUTO) 0.6 10^3/uL (0.0-1.0); MONOCYTES % (AUTO) 9.6 %; NEUTROPHILS # (AUTO) 4.7 10^3/uL (1.5-6.6); NEUTROPHILS % (AUTO) 73.4 %; PLT - PLATELET COUNT 137 10^3/uL (130-450); RED BLOOD COUNT 3.62 10^6/uL (4.20-5.40); RED CELL DISTRIBUTION WIDTH 13.4 % (12.0-15.0); WHITE BLOOD COUNT 6.4 x10^3/uL (4.8-10.8)
[2019-12-04 11:00] LABS: CALCIUM 8.2 mg/dL (8.5-10.3); CREATININE 1.3 mg/dL (0.4-1.0)
--- NOTE | 2019-12-04 11:15 | XRAY Report ---
Reason: sudden sob, hypoxia, wheeze Procedure Date: 12/04/2019 Accession Number: [id number] / [id number] Procedure: XR - Chest 1 View X-Ray CPT Code: 43879 Final Report FULL RESULT: EXAM: CHEST RADIOGRAPHY EXAM DATE: 12/04/2019 10:51 AM. CLINICAL HISTORY: Shortness of breath. COMPARISON: CHEST 1 VIEW 11/30/2019 4:18 PM. TECHNIQUE: 1 view. FINDINGS: Lungs/Pleura: Moderate pulmonary vascular congestion and edema is seen. New mild pleural effusions is suggested. No pneumothorax is identified. Mediastinum: Heart is moderately enlarged. Other: None. IMPRESSION: New moderate CHF/fluid overload. RADIA
--- NOTE | 2019-12-04 11:44 | PROVIDER PROGRESS NOTE ---
Subjective - Prog Note Date Prog Note Date: 12/04/19 Prog Note Time: 11:54 Current Medications - Current Medications Current Medications: Active Medications Acetaminophen (Tylenol) 650 mg PO Q4HR PRN PRN Reason: Pain or Fever > 38C (100.4F) Last Admin: 12/03/19 21:41 Dose: 650 mg Atorvastatin Calcium (Lipitor) 40 mg PO QPM [facility] Last Admin: 12/03/19 20:13 Dose: 40 mg Ferrous Sulfate (Feosol) 325 mg PO 1200 [facility] Last Admin: 12/03/19 11:57 Dose: 325 mg Furosemide (Lasix Inj 40 Mg Vial) 40 mg IVP DAILY [facility] Last Admin: 12/04/19 10:19 Dose: 40 mg Sodium Chloride (Normal Saline 0.9%) 1,000 mls @ 83 mls/hr IV .Q12H3M [facility] Last Infusion: 12/04/19 11:46 Dose: Infused Meropenem 1 gm/ Sodium (Chloride) 100 mls @ 200 mls/hr IV Q12H [facility] Last Admin: 12/04/19 11:44 Dose: 200 mls/hr Vancomycin HCl 1.75 gm/ Sodium (Chloride) 500 mls @ 250 mls/hr IV Q24H [facility] Last Infusion: 12/03/19 21:20 Dose: Infused Insulin Aspart (Novolog) 1 - 9 unit SUBQ 0800,1200,1700,2100 [facility]; Protocol Last Admin: 12/04/19 11:53 Dose: 1 unit Insulin Glargine (Lantus Solostar) 10 unit SUBQ BID [facility] Last Admin: 12/04/19 08:11 Dose: 10 unit Isosorbide Mononitrate (Imdur) 30 mg PO DAILY [facility] Last Admin: 12/04/19 08:07 Dose: 30 mg Lactobacillus Rhamnosus (Culturelle) 1 cap PO DAILY [facility] Last Admin: 12/04/19 08:08 Dose: 1 cap Levothyroxine Sodium (Synthroid) 150 mcg PO QDAC [facility] Last Admin: 12/04/19 06:33 Dose: 150 mcg Metoprolol Succinate (Toprol Xl) 50 mg PO DAILY [facility] Last Admin: 12/04/19 08:08 Dose: 50 mg Multi-Ingredient Ointment (Zinc Oxide) 1 applic TOP PRN PRN PRN Reason: Skin Care Last Admin: 12/03/19 20:17 Dose: 1 applic Nystatin (Nystop) 1 applic TOP BID [facility] Last Admin: 12/04/19 11:45 Dose: 1 applic Oxycodone HCl (Roxicodone) 5 mg PO Q4HR PRN PRN Reason: PAIN Last Admin: 12/04/19 07:22 Dose: 5 mg Pantoprazole Sodium (Protonix) 40 mg IVP QDAC [facility] Last Admin: 12/04/19 06:28 Dose: 40 mg Polyethylene Glycol (Miralax) 17 gm PO DAILY [facility] Last Admin: 12/04/19 08:07 Dose: 17 gm Rivaroxaban (Xarelto) 15 mg PO 1700 [facility] Last Admin: 12/03/19 16:51 Dose: 15 mg Sodium Chloride (Normal Saline Flush 0.9%) 10 ml IVP PRN PRN PRN Reason: NEEDED PER PROVIDER ORDERS Last Admin: 12/04/19 10:21 Dose: 10 ml Sodium Chloride (Normal Saline Flush 0.9%) 10 ml IVP 0100,0900,1700 [facility] Last Admin: 12/04/19 10:20 Dose: 10 ml Atorvastatin Calcium 40 mg PO QPM 11/13/17 HYDROcod/ACETAM 5/325 [Shannon 5/325] 0.5 - 1 tab PO TID PRN 11/13/17 Rivaroxaban [Xarelto] 15 mg PO QDDINNER 11/05/18 Ferrous Sulfate 325 mg PO DAILYWM 05/30/19 Insulin 70/30 Human [NovoLIN] 30 unit SUBQ DAILY 05/30/19 Levothyroxine Sodium [Synthroid] 150 mcg PO QDAC 05/30/19 Omeprazole 20 mg PO QDAC 05/30/19 Furosemide 20 mg PO BID 12/01/19 Insulin 70/30 Human [NovoLIN] 25 units SUBQ QPM 12/01/19 Isosorbide Mononitrate ER [Imdur] 30 mg PO DAILY 12/01/19 Metoprolol Succinate [Toprol Xl] 50 mg PO DAILY 12/01/19 Nystatin Cream [Mycostatin Cream] 1 applic TOP DAILY 12/02/19 Zinc Oxide 1 applic TOP BID PRN 12/02/19 Objective - Vital Signs/Intake & Output Reviewed Vital Signs: Yes Vital Signs: Vital Signs x48h Temp Pulse Pulse Resp BP Pulse Ox 12/04/19 11:00 70 12 157/71 H 93 12/04/19 10:37 70 12/04/19 10:00 86 18 161/74 H 84 L 12/04/19 08:00 36.2 C L 89 22 185/100 H 92 12/04/19 06:56 36.9 C 80 20 167/90 H 95 12/04/19 04:03 37 C 76 15 154/74 H 92 Intake & Output: Intake & Output 12/01/19 12/02/19 12/03/19 12/04/19 23:59 23:59 23:59 23:59 Intake Total 5116.567 3963.184 4294.483 1778.767 Output Total 2075 2625 1850 1325 Balance 3041.567 7357.216 3670.483 453.767 - Objective General Appearance: positive: No acute distress (now but she was tachypeic and wheezing until xopenex plus lasix), Lethargic (slow to speak) Eyes Bilateral: positive: PERRL ENT: positive: Pharynx nml Neck: positive: No JVD (but hard to assess bc of neck width). negative: Stiff neck, Carotid bruit Respiratory: positive: Wheezes (right upper long), Rales, Rhonchi. negative: Chest non-tender Cardiovascular: positive: Regular rate & rhythm, Systolic murmur. negative: Gallop/S4, Friction rub Abdomen: positive: Non-tender, No organomegaly, Nml bowel sounds, No distention, Other (large, obese panus. brigida intertrigo fading but still there) Skin: positive: Warm, Dry Extremities: positive: Non-tender, Pedal edema (but her leg edema is shrinking and skin starting to shrivel w wrinkles, no venous stasis/redness) Neurologic/Psychiatric: positive: CN's nml (2-12), Motor nml, Weakness, Slurred/abnml speech - Lab Results Fish Bones: 12/04/19 10:18 12/04/19 09:23 Other Labs: Lab Results x24hrs 12/04/19 12/04/19 12/04/19 Range/Units 10:18 09:23 09:23 WBC 6.4 (4.8-10.8) x10^3/uL RBC 3.62 L (4.20-5.40) 10^6/uL Hgb 10.8 L (12.0-16.0) g/dL Hct 36.8 L (37.0-47.0) % MCV 101.7 H (81.0-99.0) fL MCH 29.8 (27.0-31.0) pg MCHC 29.3 L (32.0-36.0) g/dL RDW 13.4 (12.0-15.0) % Plt Count 137 (130-450) 10^3/uL MPV 10.6 (7.9-10.8) fL Neut # (Auto) 4.7 (1.5-6.6) 10^3/uL Lymph # (Auto) 0.8 L (1.5-3.5) 10^3/uL [place] # (Auto) 0.6 (0.0-1.0) 10^3/uL Eos # (Auto) 0.2 (0.0-0.7) 10^3/uL Baso # (Auto) 0.0 (0.0-0.1) 10^3/uL Absolute Nucleated RBC 0.00 x10^3/uL Nucleated RBC % 0.0 /100WBC Sodium 139 (135-145) mmol/L Potassium 4.1 (3.5-5.0) mmol/L Chloride 100 L (101-111) mmol/L Carbon Dioxide 30 (21-32) mmol/L Anion Gap 9.0 (6-13) BUN 29 H (6-20) mg/dL Creatinine 1.3 H (0.4-1.0) mg/dL Estimated GFR (MDRD) 40 L (>89) Glucose 203 H (70-100) mg/dL POC Whole Bld Glucose (70 - 100) mg/dL Calcium 8.2 L (8.5-10.3) mg/dL Troponin I High Sens 14.2 (2.3-14.8) ng/L Last Dose Date Last Dose Time Vancomycin Trough (10.0-20.0) ug/mL 12/04/19 12/04/19 12/03/19 Range/Units 09:23 07:36 20:01 WBC (4.8-10.8) x10^3/uL RBC (4.20-5.40) 10^6/uL Hgb (12.0-16.0) g/dL Hct (37.0-47.0) % MCV (81.0-99.0) fL MCH (27.0-31.0) pg MCHC (32.0-36.0) g/dL RDW (12.0-15.0) % Plt Count (130-450) 10^3/uL MPV (7.9-10.8) fL Neut # (Auto) (1.5-6.6) 10^3/uL Lymph # (Auto) (1.5-3.5) 10^3/uL [place] # (Auto) (0.0-1.0) 10^3/uL Eos # (Auto) (0.0-0.7) 10^3/uL Baso # (Auto) (0.0-0.1) 10^3/uL Absolute Nucleated RBC x10^3/uL Nucleated RBC % /100WBC Sodium (135-145) mmol/L Potassium (3.5-5.0) mmol/L Chloride (101-111) mmol/L Carbon Dioxide (21-32) mmol/L Anion Gap (6-13) BUN (6-20) mg/dL Creatinine 1.4 H (0.4-1.0) mg/dL Estimated GFR (MDRD) 37 L (>89) Glucose (70-100) mg/dL POC Whole Bld Glucose 167 H 176 H (70 - 100) mg/dL Calcium (8.5-10.3) mg/dL Troponin I High Sens (2.3-14.8) ng/L Last Dose Date Last Dose Time Vancomycin Trough (10.0-20.0) ug/mL 12/03/19 12/03/19 12/03/19 Range/Units 17:56 16:26 11:46 WBC (4.8-10.8) x10^3/uL RBC (4.20-5.40) 10^6/uL Hgb (12.0-16.0) g/dL Hct (37.0-47.0) % MCV (81.0-99.0) fL MCH (27.0-31.0) pg MCHC (32.0-36.0) g/dL RDW (12.0-15.0) % Plt Count (130-450) 10^3/uL MPV (7.9-10.8) fL Neut # (Auto) (1.5-6.6) 10^3/uL Lymph # (Auto) (1.5-3.5) 10^3/uL [place] # (Auto) (0.0-1.0) 10^3/uL Eos # (Auto) (0.0-0.7) 10^3/uL Baso # (Auto) (0.0-0.1) 10^3/uL Absolute Nucleated RBC x10^3/uL Nucleated RBC % /100WBC Sodium (135-145) mmol/L Potassium (3.5-5.0) mmol/L Chloride (101-111) mmol/L Carbon Dioxide (21-32) mmol/L Anion Gap (6-13) BUN (6-20) mg/dL Creatinine (0.4-1.0) mg/dL Estimated GFR (MDRD) (>89) Glucose (70-100) mg/dL POC Whole Bld Glucose 163 H 159 H (70 - 100) mg/dL Calcium (8.5-10.3) mg/dL Troponin I High Sens (2.3-14.8) ng/L Last Dose Date 12/02/19 Last Dose Time 1850 Vancomycin Trough 18.1 (10.0-20.0) ug/mL ABX Reporting Has patient been on IV antibiotics over the past 48 hours?: Yes Assessment/Plan - Problem List (1) Metabolic encephalopathy Impression: Improved from admission but still slow to think and speak since she has been off BiPAP. Appropriate but can't remember getting here. Her mentation has not improved since 12/01. She presented as obtunded 11/29 that had been slowly starting after a few weeks of being ill, respiratory rate was 8. This is likely a combination of CO2 narcosis, weakness and confusion from her infection and volume depletion. BIPAP was started and she was admitted to the ICU. She became more alert 3/2 a.m. and was able to feed herself when given breaks off the BIPAP unit. When the daughter arrived afternoon of 11/30, she confirmed that the patient's new baseline (after the stroke last year) is to have normal speech and be completely alert and oriented. 3/3 She came off BiPAP. However blood gas shows a PCO2 of 58 off BiPAP. We elected to keep her on BiPAP when she was asleep. 3/4 Put on trilogy last night to see if trilogy mask is working and it is not. She is leaking. Unable to keep the mask on. That may be part of the problem why she is leading to CO2 narcosis at home. There are no focal findings, she is moving all her extremities, is oriented x3. Barely able to sit at the side of the bed today. Unable to stand. Continue with supportive care 3/5 no better. (2) Acute and chronic respiratory failure with hypercapnia Assessment/Plan: Patient requires home O2 and uses a trilogy machine at home. She was pulling this off over the 2 days before admission when her confusion was getting worse. Her admission ABG was 7.2/99/60. She was put on BIPAP. With treatment her 12/01 pH was improved to 7.4. PCO2 was still a little high at 58. PO2 59. Continued BIPAP When she is asleep. She will need to stay in ICU bc of BiPAP. Continue nebs, steroids, treatment of pneumonia. Trilogy was brought in for 3/3- 3/4 overnight use. Found to be part of the problem and that is not working for her. last night I had requested resumption of BiPAP but she was on Trilogy again since the mask was repositioned and she was compliant and there were no leaks. This am had sudden wheezing, hypertension to 190's systolic, heart rate into 90's, and was acutely sob. This was as xopenex was given. Had been complaining of feeling "hot" and then had 15 seconds of a wide complex tachy that aborted on its own. Plan: Trilogy mask reassessed and doing better. Lasix given and better. continue nebs, steroids (3) CAP (community acquired pneumonia) Assessment/Plan: IV antibiotics have been started.Day #4 of meropenem and vancomycin She does not make any sputum. WBC has been stable, no elevation. I will de-escalate the vancomycin (4) UTI (urinary tract infection) Assessment/Plan: She has had many many recurrent UTIs. Many of them had ESBL. Blood culture negative after 2 days, urine culture with Enterococcus faecalis which is resistant to quinupristin but sensitive to everything else. She been started on meropenem at admission. Day #4 (5) Acute on Chronic diastolic (not systolic) congestive heart failure, NYHA class 3 Assessment/Plan: Her IV fluids were aggressive for the first several hours, now the IV rate is at 83/h in order to prevent CHF. Then this am she was acutely sob with 15 seconds of wide complex tachycardia. EKG showed normal sinus rhythm with PVCs. No acute ST-T wave changes. She had poor R wave progression that was unchanged. Chest x-ray showed a heart that is moderately enlarged, moderate pulmonary vascular congestion and edema was seen. New mild pleural effusions. She was felt to have new moderate CHF/fluid overload. Troponin was 14.2. Last echocardiogram in our system is January 2019. Left ventricular systolic function normal with an ejection fraction of 60 to 65%. Impaired relaxation consistent with grade 1 diastolic dysfunction. Mild tricuspid regurgitation. Moderately abnormal right heart pressures. RVSP at rest was 62 mmHg. she has responded to lasix IVP. Will start that daily, resume her metoprolol. (6) Generalized weakness Assessment/Plan: This is related to #1 above. In general she is overall weaker with every admission, according to the daughter who is the caregiver. Patient has refused to go to a SNF after admissions in the past for PT. Initially it was because she just never wanted to be in a intermediate, but in reality it also has to do with finances. They do not have the money to pay for her to be in a fdc facility. The daughter is eager to have her mother get PT rehab at a SNF, perhaps after this hospitalization. PT Evaluation ordered for today. She is very weak. The most she could do was sit up at the side of the bed with 2 physical therapist working with her. That just wiped her out. She really could not stand very well. Plan: Continue to work with physical therapy (7) Acute on chronic renal failure Qualifiers: Chronic kidney disease stage: stage 3 (moderate) Assessment/Plan: Avoid nephrotoxins. Follow BMP daily. Creatinine 1.7 >1.6> 1.3>1.4 (8) Chronic indwelling Blanco catheter Assessment/Plan: She now needs this for incontinence and recurrent groin and buttock rashes, decubitus ulcers (9) Diabetes mellitus type 2 in obese Assessment/Plan: Patient was giving 70/30 of insulin at home. Here she was empirically put on Lantus 10 mg subcu twice daily plus a sliding scale of Reg Insulin. November 2: 144, 195, 155, 169 November 3: 131, 169, 253 November 4: 143, 159, 163, 176 November 5: 167 A1c is 6.6% She is awake enough during BiPAP breaks, to eat solid food on a diabetic diet. Plan: No change in medication at this time (10) Anemia Assessment/Plan: Likely to be anemia of chronic disease. Follow CBC daily. Hgb 11.3>9.9>9.6>10.6>10.8 today (11) History of stroke Assessment/Plan: The details of any residual deficit are not clear, this needs to be confirmed with the daughter, her caregiver. (12) Decubitus ulcer, buttock Qualifiers: Pressure injury stage: stage 1 Assessment/Plan: Topical treatment was ordered, plus turn and reposition. (13) Rash of back Assessment/Plan: Topical treatment is ordered. Vancomycin also should help this, if any secondar y infection. (14) HTN Her home doses of Norvasc and Lasix are on hold because of low blood pressure and dehydration related to poor po intake and her infections. 15) Hypothyroidism Her home dose of Synthroid will be resumed with a good TSH level 16) Paroxysmal Afib There is a history of past A. fib and because there is been a prior stroke, will resume her Xarelto with dinner. She currently is in sinus rhythm on EKG and on telemetry, though. Since she is on Xarelto, I will stop her SCDs that she hates. Xarelto can function as anticoagulation for DVT prophylaxis as well. So far, other than the wide complex burst she had this am, she has remained in sinus.
[2019-12-04] MEDS: NYSTATIN POWDER 15 GM TOP SCH ×2 (11:45→21:30)
[2019-12-04] MEDS: SODIUM CHLORIDE 0.9% 1,000 ML IV SCH ×2 (12:25→12:49)
[2019-12-04] MEDS: FERROUS SULFATE 325 MG TABLET PO SCH (12:50)
[2019-12-04] MEDS: ZINC OXIDE 20% OINT 30 GM TUBE TOP PRN (14:30)
[2019-12-04] MEDS ORDERED: methylPREDNISolone 4 MG TABLET PO SCH (15:00)
[2019-12-04] MEDS: RIVAROXABAN 15 MG TABLET PO SCH (17:03)
[2019-12-04] MEDS: ATORVASTATIN 40 MG TABLET PO SCH (21:29)
[2019-12-04] MEDS: PENICILLIN G POTASSIUM 2,500,000 UNIT in SODIUM CHLORIDE 0.9% 100ML 100 ML IV SCH (21:41)
[2019-12-05] MEDS: PENICILLIN G POTASSIUM 2,500,000 UNIT in SODIUM CHLORIDE 0.9% 100ML 100 ML IV SCH ×4 (01:06→14:38)
[2019-12-05 05:25] LABS: BASOPHILS % (AUTO) 0.6 %; EOSINOPHILS % (AUTO) 0.8 %; HGB - HEMOGLOBIN 9.9 g/dL (12.0-16.0); LYMPHOCYTES # (AUTO) 0.8 10^3/uL (1.5-3.5); LYMPHOCYTES % (AUTO) 14.9 %; MEAN CORPUSCULAR HEMOGLOBIN 29.8 pg (27.0-31.0); MEAN CORPUSCULAR HGB CONC 29.2 g/dL (32.0-36.0); MEAN CORPUSCULAR VOLUME 102.1 fL (81.0-99.0); MEAN PLATELET VOLUME 11.1 fL (7.9-10.8); MONOCYTES # (AUTO) 0.6 10^3/uL (0.0-1.0); MONOCYTES % (AUTO) 11.5 %; NEUTROPHILS # (AUTO) 3.7 10^3/uL (1.5-6.6); NEUTROPHILS % (AUTO) 70.1 %; PLT - PLATELET COUNT 127 10^3/uL (130-450); RED BLOOD COUNT 3.32 10^6/uL (4.20-5.40); RED CELL DISTRIBUTION WIDTH 13.4 % (12.0-15.0); WHITE BLOOD COUNT 5.2 x10^3/uL (4.8-10.8)
[2019-12-05 05:32] LABS: CALCIUM 8.1 mg/dL (8.5-10.3); CREATININE 1.6 mg/dL (0.4-1.0)
[2019-12-05] MEDS: SODIUM CHLORIDE FLUSH 0.9% 10 ML SYRINGE IVP SCH ×2 (05:50→08:31)
[2019-12-05] MEDS: LEVOTHYROXINE 100 MCG TABLET PO SCH (07:27)
[2019-12-05] MEDS: PANTOPRAZOLE 40 MG VIAL IVP SCH (07:28)
[2019-12-05] MEDS ORDERED: methylPREDNISolone 4 MG TABLET PO ONE (08:00)
[2019-12-05] MEDS: INSULIN ASPART 300 UNIT/3 ML PEN SUBQ SCH ×4 (08:26→21:01)
[2019-12-05] MEDS: INSULIN GLARGINE 300 UNIT/3 ML PEN SUBQ SCH ×2 (08:26→21:01)
[2019-12-05] MEDS: oxyCODONE 5 MG TABLET PO PRN (08:27)
[2019-12-05] MEDS: ZINC OXIDE 20% OINT 30 GM TUBE TOP PRN ×2 (08:27→15:55)
[2019-12-05] MEDS: FUROSEMIDE 40 MG/4 ML VIAL IVP SCH (08:44)
[2019-12-05] MEDS ORDERED: SENNA 8.6 MG TABLET PO SCH ×2 (09:00)
[2019-12-05] MEDS: DOCUSATE SODIUM 250 MG CAPSULE PO SCH (09:07)
[2019-12-05] MEDS: METOPROLOL SUCCINATE 50 MG TABLET PO SCH (09:08)
[2019-12-05] MEDS: ISOSORBIDE MONONITRATE ER 30 MG TABLET PO SCH (09:10)
[2019-12-05] MEDS: polyethylene glycoL 3350 17 GM PACKET PO SCH (09:11)
[2019-12-05] MEDS: NYSTATIN POWDER 15 GM TOP SCH ×2 (09:14→20:56)
--- NOTE | 2019-12-05 09:28 | PROVIDER PROGRESS NOTE ---
Subjective - Prog Note Date Prog Note Date: 12/05/19 Prog Note Time: 09:14 - Subjective Pt reports feeling: Improved Subjective: she is bringing food and drink to her mouth. episodes of desat to 80s when she drinks or rolls over. lasts for a few minutes then rebounds. Current Medications - Current Medications Current Medications: Active Medications Acetaminophen (Tylenol) 650 mg PO Q4HR PRN PRN Reason: Pain or Fever > 38C (100.4F) Last Admin: 12/03/19 21:41 Dose: 650 mg Atorvastatin Calcium (Lipitor) 40 mg PO QPM [facility]NE[facility] Last Admin: 12/04/19 21:29 Dose: 40 mg Docusate Sodium (Colace 250mg Capsule) 250 - 500 mg PO DAILY [facility] Last Admin: 12/05/19 09:07 Dose: 500 mg Ferrous Sulfate (Feosol) 325 mg PO 1200 [facility] Last Admin: 12/04/19 12:50 Dose: 325 mg Furosemide (Lasix Inj 40 Mg Vial) 40 mg IVP DAILY [facility] Last Admin: 12/05/19 08:44 Dose: 40 mg Penicillin G Potassium 2,500, (000 unit/ Sodium Chloride) 100 mls @ 200 mls/hr IV Q4HR [facility] Last Infusion: 12/05/19 06:20 Dose: Infused Insulin Aspart (Novolog) 1 - 9 unit SUBQ 0800,1200,1700,2100 [facility]; Protocol Last Admin: 12/05/19 08:26 Dose: 1 unit Insulin Glargine (Lantus Solostar) 10 unit SUBQ BID [facility] Last Admin: 12/05/19 08:26 Dose: 10 unit Isosorbide Mononitrate (Imdur) 30 mg PO DAILY [facility] Last Admin: 12/05/19 09:10 Dose: 30 mg Lactobacillus Rhamnosus (Culturelle) 1 cap PO DAILY [facility] Last Admin: 12/05/19 09:34 Dose: 1 cap Levothyroxine Sodium (Synthroid) 150 mcg PO QDAC [facility] Last Admin: 12/05/19 07:27 Dose: 150 mcg Methylprednisolone (Medrol) 16 mg PO 0800 ONE Stop: 12/06/19 08:01 Methylprednisolone (Medrol) 12 mg PO 0800 ONE Stop: 12/07/19 08:01 Methylprednisolone (Medrol) 8 mg PO 0800 ONE Stop: 12/08/19 08:01 Methylprednisolone (Medrol) 4 mg PO 0800 ONE Stop: 12/09/19 08:01 Metoprolol Succinate (Toprol Xl) 50 mg PO DAILY [facility] Last Admin: 12/05/19 09:08 Dose: 50 mg Multi-Ingredient Ointment (Zinc Oxide) 1 applic TOP PRN PRN PRN Reason: Skin Care Last Admin: 12/05/19 08:27 Dose: 1 applic Nystatin (Nystop) 1 applic TOP BID [facility] Last Admin: 12/05/19 09:14 Dose: 1 applic Oxycodone HCl (Roxicodone) 5 mg PO Q4HR PRN PRN Reason: PAIN Last Admin: 12/05/19 08:27 Dose: 5 mg Pantoprazole Sodium (Protonix) 40 mg IVP QDAC [facility] Last Admin: 12/05/19 07:28 Dose: 40 mg Polyethylene Glycol (Miralax) 17 gm PO DAILY [facility] Last Admin: 12/05/19 09:11 Dose: 17 gm Rivaroxaban (Xarelto) 15 mg PO 1700 [facility] Last Admin: 12/04/19 17:03 Dose: 15 mg Senna (Senokot) 8.6 - 17.2 mg PO DAILY [facility] Last Admin: 12/05/19 09:09 Dose: 17.2 mg Sodium Chloride (Normal Saline Flush 0.9%) 10 ml IVP PRN PRN PRN Reason: NEEDED PER PROVIDER ORDERS Last Admin: 12/04/19 10:21 Dose: 10 ml Sodium Chloride (Normal Saline Flush 0.9%) 10 ml IVP 0100,0900,1700 [facility] Last Admin: 12/05/19 08:31 Dose: 10 ml Atorvastatin Calcium 40 mg PO QPM 11/13/17 HYDROcod/ACETAM 5/325 [Gillett 5/325] 0.5 - 1 tab PO TID PRN 11/13/17 Rivaroxaban [Xarelto] 15 mg PO QDDINNER 11/05/18 Ferrous Sulfate 325 mg PO DAILYWM 05/30/19 Insulin 70/30 Human [NovoLIN] 30 unit SUBQ DAILY 05/30/19 Levothyroxine Sodium [Synthroid] 150 mcg PO QDAC 05/30/19 Omeprazole 20 mg PO QDAC 05/30/19 Furosemide 20 mg PO BID 12/01/19 Insulin 70/30 Human [NovoLIN] 25 units SUBQ QPM 12/01/19 Isosorbide Mononitrate ER [Imdur] 30 mg PO DAILY 12/01/19 Metoprolol Succinate [Toprol Xl] 50 mg PO DAILY 12/01/19 Nystatin Cream [Mycostatin Cream] 1 applic TOP DAILY 12/02/19 Zinc Oxide 1 applic TOP BID PRN 12/02/19 Objective - Vital Signs/Intake & Output Reviewed Vital Signs: Yes Vital Signs: Vital Signs x48h Pulse Resp BP Pulse Ox 12/05/19 07:00 71 18 169/101 H 92 12/05/19 05:00 59 L 14 156/89 H 88 L 12/05/19 03:00 58 L 16 136/66 H 89 L Intake & Output: Intake & Output 12/02/19 12/03/19 12/04/19 12/05/19 23:59 23:59 23:59 23:59 Intake Total 3963.184 4294.483 3259.583 200 Output Total 2625 1850 3495 425 Balance 5817.861 8304.483 -235.417 -225 - Objective General Appearance: positive: No acute distress, Alert, Other (short, obese, elderly female, comfortable, but will get acutely sob . this am no arrhythmia.) Eyes Bilateral: positive: PERRL ENT: positive: Pharynx nml Neck: negative: Stiff neck Respiratory: positive: Chest non-tender, Rhonchi. negative: Wheezes, Rales Cardiovascular: positive: Regular rate & rhythm. negative: Gallop/S4, Friction rub Abdomen: positive: Non-tender, Nml bowel sounds, No distention Skin: positive: Warm, Dry, Other (raw area over buttocks where she had scalded skin pattern on admit has remained dry, no oozing, and decub without change.) Extremities: positive: Non-tender, No pedal edema (where skin has shrunken over the last 2 days.) Neurologic/Psychiatric: positive: CN's nml (2-12), Motor nml, Disoriented to time, Weakness (generalized) - Lab Results Fish Bones: 12/05/19 04:30 12/05/19 04:30 Other Labs: Lab Results x24hrs 12/05/19 12/05/19 12/05/19 Range/Units 08:16 04:30 04:30 WBC 5.2 (4.8-10.8) x10^3/uL RBC 3.32 L (4.20-5.40) 10^6/uL Hgb 9.9 L (12.0-16.0) g/dL Hct 33.9 L (37.0-47.0) % MCV 102.1 H (81.0-99.0) fL MCH 29.8 (27.0-31.0) pg MCHC 29.2 L (32.0-36.0) g/dL RDW 13.4 (12.0-15.0) % Plt Count 127 L (130-450) 10^3/uL MPV 11.1 H (7.9-10.8) fL Neut # (Auto) 3.7 (1.5-6.6) 10^3/uL Lymph # (Auto) 0.8 L (1.5-3.5) 10^3/uL Centre # (Auto) 0.6 (0.0-1.0) 10^3/uL Eos # (Auto) 0.0 (0.0-0.7) 10^3/uL Baso # (Auto) 0.0 (0.0-0.1) 10^3/uL Absolute Nucleated RBC 0.00 x10^3/uL Nucleated RBC % 0.0 /100WBC Sodium 140 (135-145) mmol/L Potassium 4.7 (3.5-5.0) mmol/L Chloride 99 L (101-111) mmol/L Carbon Dioxide 34 H (21-32) mmol/L Anion Gap 7.0 (6-13) BUN 32 H (6-20) mg/dL Creatinine 1.6 H (0.4-1.0) mg/dL Estimated GFR (MDRD) 31 L (>89) Glucose 220 H (70-100) mg/dL POC Whole Bld Glucose 155 H (70 - 100) mg/dL Calcium 8.1 L (8.5-10.3) mg/dL Troponin I High Sens (2.3-14.8) ng/L 12/04/19 12/04/19 12/04/19 Range/Units 21:25 16:49 11:50 WBC (4.8-10.8) x10^3/uL RBC (4.20-5.40) 10^6/uL Hgb (12.0-16.0) g/dL Hct (37.0-47.0) % MCV (81.0-99.0) fL MCH (27.0-31.0) pg MCHC (32.0-36.0) g/dL RDW (12.0-15.0) % Plt Count (130-450) 10^3/uL MPV (7.9-10.8) fL Neut # (Auto) (1.5-6.6) 10^3/uL Lymph # (Auto) (1.5-3.5) 10^3/uL Centre # (Auto) (0.0-1.0) 10^3/uL Eos # (Auto) (0.0-0.7) 10^3/uL Baso # (Auto) (0.0-0.1) 10^3/uL Absolute Nucleated RBC x10^3/uL Nucleated RBC % /100WBC Sodium (135-145) mmol/L Potassium (3.5-5.0) mmol/L Chloride (101-111) mmol/L Carbon Dioxide (21-32) mmol/L Anion Gap (6-13) BUN (6-20) mg/dL Creatinine (0.4-1.0) mg/dL Estimated GFR (MDRD) (>89) Glucose (70-100) mg/dL POC Whole Bld Glucose 239 H 172 H 163 H (70 - 100) mg/dL Calcium (8.5-10.3) mg/dL Troponin I High Sens (2.3-14.8) ng/L 12/04/19 12/04/19 12/04/19 Range/Units 10:18 09:23 09:23 WBC 6.4 (4.8-10.8) x10^3/uL RBC 3.62 L (4.20-5.40) 10^6/uL Hgb 10.8 L (12.0-16.0) g/dL Hct 36.8 L (37.0-47.0) % MCV 101.7 H (81.0-99.0) fL MCH 29.8 (27.0-31.0) pg MCHC 29.3 L (32.0-36.0) g/dL RDW 13.4 (12.0-15.0) % Plt Count 137 (130-450) 10^3/uL MPV 10.6 (7.9-10.8) fL Neut # (Auto) 4.7 (1.5-6.6) 10^3/uL Lymph # (Auto) 0.8 L (1.5-3.5) 10^3/uL Centre # (Auto) 0.6 (0.0-1.0) 10^3/uL Eos # (Auto) 0.2 (0.0-0.7) 10^3/uL Baso # (Auto) 0.0 (0.0-0.1) 10^3/uL Absolute Nucleated RBC 0.00 x10^3/uL Nucleated RBC % 0.0 /100WBC Sodium 139 (135-145) mmol/L Potassium 4.1 (3.5-5.0) mmol/L Chloride 100 L (101-111) mmol/L Carbon Dioxide 30 (21-32) mmol/L Anion Gap 9.0 (6-13) BUN 29 H (6-20) mg/dL Creatinine 1.3 H (0.4-1.0) mg/dL Estimated GFR (MDRD) 40 L (>89) Glucose 203 H (70-100) mg/dL POC Whole Bld Glucose (70 - 100) mg/dL Calcium 8.2 L (8.5-10.3) mg/dL Troponin I High Sens 14.2 (2.3-14.8) ng/L 12/04/19 Range/Units 09:23 WBC (4.8-10.8) x10^3/uL RBC (4.20-5.40) 10^6/uL Hgb (12.0-16.0) g/dL Hct (37.0-47.0) % MCV (81.0-99.0) fL MCH (27.0-31.0) pg MCHC (32.0-36.0) g/dL RDW (12.0-15.0) % Plt Count (130-450) 10^3/uL MPV (7.9-10.8) fL Neut # (Auto) (1.5-6.6) 10^3/uL Lymph # (Auto) (1.5-3.5) 10^3/uL Centre # (Auto) (0.0-1.0) 10^3/uL Eos # (Auto) (0.0-0.7) 10^3/uL Baso # (Auto) (0.0-0.1) 10^3/uL Absolute Nucleated RBC x10^3/uL Nucleated RBC % /100WBC Sodium (135-145) mmol/L Potassium (3.5-5.0) mmol/L Chloride (101-111) mmol/L Carbon Dioxide (21-32) mmol/L Anion Gap (6-13) BUN (6-20) mg/dL Creatinine 1.4 H (0.4-1.0) mg/dL Estimated GFR (MDRD) 37 L (>89) Glucose (70-100) mg/dL POC Whole Bld Glucose (70 - 100) mg/dL Calcium (8.5-10.3) mg/dL Troponin I High Sens (2.3-14.8) ng/L ABX Reporting Has patient been on IV antibiotics over the past 48 hours?: Yes Assessment/Plan - Problem List (1) Metabolic encephalopathy Impression: Improved from admission but still slow to think and speak since she has been off BiPAP. Appropriate but can't remember getting here. Her mentation has not improved since 12/01. She presented as obtunded 11/29 that had been slowly starting after a few weeks of being ill, respiratory rate was 8. This is likely a combination of CO2 narcosis, weakness and confusion from her infection and volume depletion. BIPAP was started and she was admitted to the ICU. She became more alert 11/30 a.m. and was able to feed herself when given breaks off the BIPAP unit. When the daughter arrived afternoon of 11/30, she confirmed that the patient's new baseline (after the stroke last year) is to have normal speech and be completely alert and oriented. 12/01 She came off BiPAP. However blood gas shows a PCO2 of 58 off BiPAP. We elected to keep her on BiPAP when she was asleep. 12/02 Put on trilogy last night to see if trilogy mask is working and it is not. She is leaking. Unable to keep the mask on. That may be part of the problem why she is leading to CO2 narcosis at home. There are no focal findings, she is moving all her extremities, is oriented x3. Barely able to sit at the side of the bed today. Unable to stand. Continue with supportive care 12/03 no better. 12/04 She was much more talkative and able to follow conversation by yesterday afternoon when I saw her again and spoke to her daughter who was visiting. She is definitely better according to daughter but still not at baseline (2) Acute and chronic respiratory failure with hypercapnia Assessment/Plan: Patient requires home O2 and uses a trilogy machine at home. She was pulling this off over the 2 days before admission when her confusion was getting worse. Her admission ABG was 7.2/99/60. She was put on BIPAP. With treatment her 12/01 pH was improved to 7.4. PCO2 was still a little high at 58. PO2 59. Continued BIPAP When she is asleep. She will need to stay in ICU bc of BiPAP. Continue nebs, steroids, treatment of pneumonia. Trilogy was brought in for 12/01- 12/02 overnight use. Found to be part of the problem and that is not working for her. 12/02 I had requested resumption of BiPAP for the night but she was on Trilogy again since the mask was repositioned and she was compliant and there were no leaks. 12/03 This am had sudden wheezing, hypertension to 190's systolic, heart rate into 90's, and was acutely sob. This was as xopenex was given. Had been complaining of feeling "hot" and then had 15 seconds of a wide complex tachy that aborted on its own. Given lasix for chf and improved. 12/04 Used trilogy last night and did well until early this am when sats dropped to 80's on the mask. we are going to ask the rep to come today to work with us and her (3) CAP (community acquired pneumonia) Assessment/Plan: IV antibiotics have been started. s/p 4 days of meropenem and vancomycin until 12/03 She does not make any sputum. WBC has been stable, no elevation. I stopped vanco and ulisses 12/03 and changed to IV PCN since the diagnosis for pneumonia remained on the weak side on CXR, she didn't have fever, nor WBC. Will change to po meds today (4) UTI (urinary tract infection) Assessment/Plan: She has had many many recurrent UTIs. Many of them had ESBL. Blood culture negative after 3 days, urine culture with Enterococcus faecalis which is resistant to quinupristin but sensitive to everything else. She been started on meropenem at admission. s/p 4 days as of 12/03. Switched to PCN IV and today I will change to po since IV access is getting more and more difficult and I need to weigh need for central access vs. just changing to PO (5) Acute on Chronic diastolic (not systolic) congestive heart failure, NYHA class 3 Assessment/Plan: Her IV fluids were aggressive for the first several hours, now the IV rate is at 83/h in order to prevent CHF. Then this am she was acutely sob with 15 seconds of wide complex tachycardia. EKG showed normal sinus rhythm with PVCs. No acute ST-T wave changes. She had poor R wave progression that was unchanged. Chest x-ray showed a heart that is moderately enlarged, moderate pulmonary vascular congestion and edema was seen. New mild pleural effusions. She was felt to have new moderate CHF/fluid overload. Troponin was 14.2. Last echocardiogram in our system is January 2019. Left ventricular systolic function normal with an ejection fraction of 60 to 65%. Impaired relaxation consistent with grade 1 diastolic dysfunction. Mild tricuspid regurgitation. Moderately abnormal right heart pressures. RVSP at rest was 62 mmHg. she has responded to lasix IVP. I started that daily 12/03 ,resumed her metoprolol but her creat has bumped up. Change to po (6) Generalized weakness Assessment/Plan: This is related to #1 above. In general she is overall weaker with every admission, according to the daughter who is the caregiver. Patient has refused to go to a SNF after admissions in the past for PT. Initially it was because she just never wanted to be in a fdc, but in reality it also has to do with finances. They do not have the money to pay for her to be in a care home facility. The daughter is eager to have her mother get PT rehab at a SNF, perhaps after this hospitalization. PT Evaluation ordered for today. She is very weak. The most she could do was sit up at the side of the bed with 2 physical therapist working with her. That just wiped her out. She really could not stand very well. Plan: Continue to work with physical therapy (7) Acute on chronic renal failure Qualifiers: Chronic kidney disease stage: stage 3 (moderate) Assessment/Plan: Avoid nephrotoxins. Follow BMP daily. Creatinine 1.7 >1.6> 1.3>1.4>1.6 (8) Chronic indwelling Blanco catheter Assessment/Plan: She now needs this for incontinence and recurrent groin and buttock rashes, d ecubitus ulcers (9) Diabetes mellitus type 2 in obese Assessment/Plan: Patient was giving 70/30 of insulin at home. Here she was empirically put on Lantus 10 mg subcu twice daily plus a sliding scale of Reg Insulin. November 2: 144, 195, 155, 169 November 3: 131, 169, 253 November 4: 143, 159, 163, 176 November 5: 167, 163, 172, 239 November 6: 155 A1c is 6.6% She is awake enough during BiPAP breaks, to eat solid food on a diabetic diet. Plan: No change in medication at this time (10) Anemia Assessment/Plan: Likely to be anemia of chronic disease. Follow CBC daily. Hgb 11.3>9.9>9.6>10.6>10.8>9.9 today (11) History of stroke Assessment/Plan: The details of any residual deficit are not clear, this needs to be confirmed with the daughter, her caregiver. (12) Decubitus ulcer, buttock Qualifiers: Pressure injury stage: stage 1 Assessment/Plan: Topical treatment was ordered, plus turn and reposition. (13) Rash of back Assessment/Plan: Topical treatment is ordered. Vancomycin also should help this, if any secondary infection. (14) HTN Her home doses of Norvasc and Lasix are on hold because of low blood pressure and dehydration related to poor po intake and her infections. 15) Hypothyroidism Her home dose of Synthroid will be resumed with a good TSH level 16) Paroxysmal Afib There is a history of past A. fib and because there is been a prior stroke, will resume her Xarelto with dinner. She currently is in sinus rhythm on EKG and on telemetry, though. Since she is on Xarelto, I will stop her SCDs that she hates. Xarelto can function as anticoagulation for DVT prophylaxis as well. So far, other than the wide complex burst she had this am, she has remained in sinus.
[2019-12-05] MEDS: LACTOBACILLUS RHAMNOSUS GG CAPSULE PO SCH (09:34)
[2019-12-05] MEDS: FERROUS SULFATE 325 MG TABLET PO SCH (12:15)
[2019-12-05] MEDS: SENNA 8.6 MG TABLET PO SCH ×2 (14:35→23:00)
[2019-12-05] MEDS: HYDROcod/ACETAM 5/325 MG TABLET PO PRN ×2 (15:28→22:58)
[2019-12-05] MEDS: amLODIPine 5 MG TABLET PO SCH (16:15)
[2019-12-05] MEDS: RIVAROXABAN 15 MG TABLET PO SCH (17:28)
[2019-12-05] MEDS: FUROSEMIDE 20 MG TABLET PO SCH (20:52)
[2019-12-05] MEDS: ACETAMINOPHEN 325 MG TABLET PO PRN (20:53)
[2019-12-06] MEDS: SENNA 8.6 MG TABLET PO SCH ×2 (02:00→08:47)
[2019-12-06] MEDS: LEVOTHYROXINE 100 MCG TABLET PO SCH (07:09)
[2019-12-06] MEDS ORDERED: methylPREDNISolone 4 MG TABLET PO ONE (08:00)
[2019-12-06] MEDS: polyethylene glycoL 3350 17 GM PACKET PO SCH (08:45)
[2019-12-06] MEDS: METOPROLOL SUCCINATE 50 MG TABLET PO SCH (08:49)
[2019-12-06] MEDS: amLODIPine 5 MG TABLET PO SCH (08:49)
[2019-12-06] MEDS: LACTOBACILLUS RHAMNOSUS GG CAPSULE PO SCH (08:49)
[2019-12-06] MEDS: ISOSORBIDE MONONITRATE ER 30 MG TABLET PO SCH (08:50)
[2019-12-06] MEDS: FUROSEMIDE 20 MG TABLET PO SCH ×2 (08:51→20:42)
[2019-12-06] MEDS: DOCUSATE SODIUM 250 MG CAPSULE PO SCH (08:51)
[2019-12-06] MEDS: INSULIN GLARGINE 300 UNIT/3 ML PEN SUBQ SCH ×2 (09:23→20:44)
--- NOTE | 2019-12-06 09:23 | PROVIDER PROGRESS NOTE ---
Subjective - Prog Note Date Prog Note Date: 12/06/19 Prog Note Time: 09:22 - Subjective Subjective: Other than her low back pain, she has no new complaints. Still weak enough that it is hard for her to get up out of the bed. Yesterday she was able to be set up in bed, transition to the bedside chair and sat in the chair for a few hours. She breathes better. Her hypercapnia and hypoxemia continue to be the main problem. We are trying to figure out which mask works best for her. The trilogy rep will be coming out today to help us. Current Medications - Current Medications Current Medications: Active Medications Acetaminophen (Tylenol) 650 mg PO Q4HR PRN PRN Reason: Pain or Fever > 38C (100.4F) Last Admin: 12/05/19 20:53 Dose: 650 mg Hydrocodone Bitart/Acetaminophen ([place] 5/325) 1 tab PO TID PRN PRN Reason: PAIN Last Admin: 12/05/19 22:58 Dose: 1 tab Amlodipine Besylate (Norvasc) 5 mg PO DAILY [facility] Last Admin: 12/06/19 08:49 Dose: 5 mg Docusate Sodium (Colace 250mg Capsule) 250 - 500 mg PO DAILY [facility] Last Admin: 12/06/19 08:51 Dose: 250 mg Ferrous Sulfate (Feosol) 325 mg PO 1200 [facility] Last Admin: 12/05/19 12:15 Dose: 325 mg Furosemide (Lasix) 20 mg PO BID [facility] Last Admin: 12/06/19 08:51 Dose: 20 mg Insulin Aspart (Novolog) 1 - 9 unit SUBQ 0800,1200,1700,2100 PERNELL; Protocol Last Admin: 12/05/19 21:01 Dose: 5 unit Insulin Glargine (Lantus Solostar) 10 unit SUBQ BID [facility] Last Admin: 12/05/19 21:01 Dose: 10 unit Isosorbide Mononitrate (Imdur) 30 mg PO DAILY [facility] Last Admin: 12/06/19 08:50 Dose: 30 mg Lactobacillus Rhamnosus (Culturelle) 1 cap PO DAILY [facility] Last Admin: 12/06/19 08:49 Dose: 1 cap Levothyroxine Sodium (Synthroid) 150 mcg PO QDAC [facility] Last Admin: 12/06/19 07:09 Dose: 150 mcg Methylprednisolone (Medrol) 12 mg PO 0800 ONE Stop: 12/07/19 08:01 Methylprednisolone (Medrol) 8 mg PO 0800 ONE Stop: 12/08/19 08:01 Methylprednisolone (Medrol) 4 mg PO 0800 ONE Stop: 12/09/19 08:01 Metoprolol Succinate (Toprol Xl) 50 mg PO DAILY [facility] Last Admin: 12/06/19 08:49 Dose: 50 mg Multi-Ingredient Ointment (Zinc Oxide) 1 applic TOP PRN PRN PRN Reason: Skin Care Last Admin: 12/05/19 15:55 Dose: 1 applic Nystatin (Nystop) 1 applic TOP BID [facility] Last Admin: 12/05/19 20:56 Dose: 1 applic Polyethylene Glycol (Miralax) 17 gm PO DAILY [facility] Last Admin: 12/06/19 08:45 Dose: 17 gm Rivaroxaban (Xarelto) 15 mg PO 1700 [facility] Last Admin: 12/05/19 17:28 Dose: 15 mg Atorvastatin Calcium 40 mg PO QPM 11/13/17 HYDROcod/ACETAM 5/325 [[place] 5/325] 0.5 - 1 tab PO TID PRN 11/13/17 Rivaroxaban [Xarelto] 15 mg PO QDDINNER 11/05/18 Ferrous Sulfate 325 mg PO DAILYWM 05/30/19 Insulin 70/30 Human [NovoLIN] 30 unit SUBQ DAILY 05/30/19 Levothyroxine Sodium [Synthroid] 150 mcg PO QDAC 05/30/19 Omeprazole 20 mg PO QDAC 05/30/19 Furosemide 20 mg PO BID 12/01/19 Insulin 70/30 Human [NovoLIN] 25 units SUBQ QPM 12/01/19 Isosorbide Mononitrate ER [Imdur] 30 mg PO DAILY 12/01/19 Metoprolol Succinate [Toprol Xl] 50 mg PO DAILY 12/01/19 Nystatin Cream [Mycostatin Cream] 1 applic TOP DAILY 12/02/19 Zinc Oxide 1 applic TOP BID PRN 12/02/19 Objective - Vital Signs/Intake & Output Reviewed Vital Signs: Yes Vital Signs: Vital Signs x48h Temp Pulse Resp BP Pulse Ox 12/06/19 08:00 83 17 166/69 H 92 12/06/19 06:00 36.7 C 69 15 149/79 H 91 L Intake & Output: Intake & Output 12/03/19 12/04/19 12/05/19 12/06/19 23:59 23:59 23:59 23:59 Intake Total 4294.483 3259.583 1710 240 Output Total 1850 3495 2625 850 Balance 2444.483 -235.417 -915 -610 - Objective General Appearance: positive: No acute distress, Alert, Other (5 foot 6 inches elderly female who weighs 112.5 kg. Morbidly obese. Very weak. Maximum effort with 2 people to get her to sit up, stand to transfer to a chair. She is exhausted by that effort.) Eyes Bilateral: positive: PERRL ENT: positive: Pharynx nml Neck: positive: No JVD. negative: Stiff neck Respiratory: positive: Chest non-tender, Other (diminished at front and at axil la but clear) Cardiovascular: positive: Regular rate & rhythm. negative: Gallop/S4, Friction rub Abdomen: positive: Non-tender, Nml bowel sounds, No distention Skin: positive: Warm, Dry Extremities: positive: Full ROM, No pedal edema Neurologic/Psychiatric: positive: Oriented x3, CN's nml (2-12), Motor nml, Weakness (Generalized and severe due to illness and deconditioning) - Lab Results Fish Bones: 12/05/19 04:30 12/06/19 12:03 Other Labs: Lab Results x24hrs 12/06/19 12/05/19 12/05/19 Range/Units 07:57 20:50 16:51 POC Whole Bld Glucose 135 H 256 H 231 H (70 - 100) mg/dL 12/05/19 Range/Units 11:49 POC Whole Bld Glucose 183 H (70 - 100) mg/dL ABX Reporting Has patient been on IV antibiotics over the past 48 hours?: Yes Assessment/Plan - Problem List (1) Metabolic encephalopathy Impression: Has slowly improved from admission. To me she appears to be at baseline. I have taken care of her before. Daughter still feels mom is a little bit more slow to respond than baseline. But overall agrees that she has improved. She presented as obtunded 11/29 that had been slowly starting after a few weeks of being ill, respiratory rate was 8. This is likely a combination of CO2 narcosis, weakness and confusion from her infection and volume depletion. BIPAP was started and she was admitted to the ICU. She became more alert 3 a.m. and was able to feed herself when given breaks off the BIPAP unit. When the daughter arrived afternoon of 11/30, she confirmed that the patient's new baseline (after the stroke last year) is to have normal speech and be completely alert and oriented. 12/01 She came off BiPAP. However blood gas shows a PCO2 of 58 off BiPAP. We elected to keep her on BiPAP when she was asleep. 12/02 Put on trilogy last night to see if trilogy mask is working and it is not. She is leaking. Unable to keep the mask on. That may be part of the problem why she is leading to CO2 narcosis at home. There are no focal findings, she is moving all her extremities, is oriented x3. Barely able to sit at the side of the bed today. Unable to stand. Continue with supportive care 12/03 no better. 12/04 She was much more talkative and able to follow conversation by yesterday afternoon when I saw her again and spoke to her daughter who was visiting. She is definitely better according to daughter but still not at baseline 12/05, alert, oriented. Denies any major pain other than back pain. (2) Acute and chronic respiratory failure with hypercapnia Assessment/Plan: Patient requires home O2 and uses a trilogy machine at home. She was pulling this off over the 2 days before admission when her confusion was getting worse. Her admission ABG was 7.2/99/60. She was put on BIPAP. With treatment her 12/01 pH was improved to 7.4. PCO2 was still a little high at 58. PO2 59. Continued BIPAP When she is asleep. She will need to stay in ICU bc of BiPAP. Continue nebs, steroids, treatment of pneumonia. Trilogy was brought in for 12/01- 12/02 overnight use. Found to be part of the problem and that is not working for her. 12/02 I had requested resumption of BiPAP for the night but she was on Trilogy again since the mask was repositioned and she was compliant and there were no leaks. 12/03 This am had sudden wheezing, hypertension to 190's systolic, heart rate into 90's, and was acutely sob. This was as xopenex was given. Had been complaining of feeling "hot" and then had 15 seconds of a wide complex tachy that aborted on its own. Given lasix for chf and improved. 12/04 Used trilogy last night and did well until early this am when sats dropped to 80's on the mask. 12/05 trilogy came to see her today. Kuldeep here from [facility] to troubleshoot Trilogy NHV. He inspected it and found no faults. We were unable to find a viable fault with the Trilogy NHV machine. Ms. Butts O2 sats have been low when she wears her Trilogy, averaging in the low 80's with her prescribed O2 bled in at 3 lpm. The final outcome is as follows: On her Trilogy with 3 lpm O2 bled into circuit: 80%; Her O2 sats never recovered above 85%, even after increasing O2 flow to 9 lpm. However, on 5 lpm nasal cannula (with Trilogy masked placed over the nasal cannula), her O2 sats maintained 89-90%. On standard nasal cannula: 3 lpm: 85% 4 lpm: 87% 5 lpm 89-90% (3) CAP (community acquired pneumonia) Assessment/Plan: IV antibiotics have been started. s/p 4 days of meropenem and vancomycin until 12/03 She does not make any sputum. WBC has been stable, no elevation. I stopped vanco and ulisses 12/03 and changed to IV PCN since the diagnosis for pneumonia remained on the weak side on CXR, she didn't have fever, nor WBC. Will change to po meds 12/04 (4) UTI (urinary tract infection) with chronic indwelling roldan Assessment/Plan: She has had many many recurrent UTIs. Many of them had ESBL. Blood culture negative after 3 days, urine culture with Enterococcus faecalis which is resistant to quinupristin but sensitive to everything else. She been started on meropenem at admission. s/p 4 days as of 12/03. Switched to PCN IV and today I will change to po since IV access is getting more and more difficult and I need to weigh need for central access vs. just changing to PO so far 4 days of IV meropenem, vanc, 1 day of IV PCN and now on Day #2 of po PCN. This makes 7 days of abx. Will stop in 1-2 days. (5) Acute on Chronic diastolic (not systolic) congestive heart failure, NYHA class 3 Assessment/Plan: Her IV fluids were aggressive for the first several hours, now the IV rate is at 83/h in order to prevent CHF. Then 12/03 she was acutely sob with 15 seconds of wide complex tachycardia. EKG showed normal sinus rhythm with PVCs. No acute ST-T wave changes. She had poor R wave progression that was unchanged. Chest x-ray showed a heart that is moderately enlarged, moderate pulmonary vascular congestion and edema was seen. New mild pleural effusions. She was felt to have new moderate CHF/fluid overload. Troponin was 14.2. Last echocardiogram in our system is January 2019. Left ventricular systolic function normal with an ejection fraction of 60 to 65%. Impaired relaxation consistent with grade 1 diastolic dysfunction. Mild tricuspid regurgitation. Moderately abnormal right heart pressures. RVSP at rest was 62 mmHg. she has responded to lasix IVP. I started that daily 12/03 ,resumed her metoprolol but her creat has bumped up. Change to po lasix 20 bid on 12/04 and creat cam back down to 1.3 No change for now (6) Generalized weakness Assessment/Plan: This is related to #1 above. In general she is overall weaker with every admission, according to the daughter who is the caregiver. Patient has refused to go to a SNF after admissions in the past for PT. Initially it was because she just never wanted to be in a detention, but in reality it also has to do with finances. They do not have the money to pay for her to be in a [facility] facility. The daughter is eager to have her mother get PT rehab at a SNF, perhaps after this hospitalization. PT Evaluation ordered for 12/03. She is very weak. The most she could do was sit up at the side of the bed with 2 physical therapist working with her. That just wiped her out. She really could not stand very well. She does better breathing sitting up in bedside chair. Plan: Continue to work with physical therapy. Plan is for dc to SNF when her hypoxia is adequately controlled w oxymizer and trilogy. (7) Acute on chronic renal failure Qualifiers: Chronic kidney disease stage: stage 3 (moderate) Assessment/Plan: Avoid nephrotoxins. Follow BMP daily. Creatinine 1.7 >1.6> 1.3>1.4>1.6>1.3 (8) Chronic indwelling Roldan catheter Assessment/Plan: She now needs this for incontinence and recurrent groin and buttock rashes, decubitus ulcers (9) Diabetes mellitus type 2 in obese Assessment/Plan: Patient was giving 70/30 of insulin at home. Here she was empirically put on Lantus 10 mg subcu twice daily plus a sliding scale of Reg Insulin. November 2: 144, 195, 155, 169 November 3: 131, 169, 253 November 4: 143, 159, 163, 176 November 5: 167, 163, 172, 239 November 6: 155, 183, 231, 256, November 7: 135, 162 A1c is 6.6% She is awake enough during BiPAP breaks, to eat solid food on a diabetic diet. Plan: No change in medication at this time (10) Anemia Assessment/Plan: Likely to be anemia of chronic disease. Follow CBC daily. Hgb 11.3>9.9>9.6>10.6>10.8>9.9 on 12/04. No check today. (11) History of stroke Assessment/Plan: The details of any residual deficit are not clear, this needs to be confirmed with the daughter, her caregiver. (12) Decubitus ulcer, buttock Qualifiers: Pressure injury stage: stage 1 Assessment/Plan: Topical treatment was ordered, plus turn and reposition. (13) Rash of back Assessment/Plan: Topical treatment is ordered. Vancomycin also should help this, if any secondary infection. (14) HTN Her home doses of Norvasc and Lasix are on hold because of low blood pressure and dehydration related to poor po intake and her infections. 15) Hypothyroidism Her home dose of Synthroid will be resumed with a good TSH level 16) Paroxysmal Afib There is a history of past A. fib and because there is been a prior stroke, will resume her Xarelto with dinner. She currently is in sinus rhythm on EKG and on telemetry, though. Since she is on Xarelto, I will stop her SCDs that she hates. Xarelto can function as anticoagulation for DVT prophylaxis as well. So far, other than the wide complex burst she had this am, she has remained in sinus.
[2019-12-06] MEDS ORDERED: BISACODYL 10 MG SUPP PR PRN (09:47)
[2019-12-06] MEDS: NYSTATIN POWDER 15 GM TOP SCH ×2 (10:26→20:45)
[2019-12-06] MEDS: INSULIN ASPART 300 UNIT/3 ML PEN SUBQ SCH ×4 (10:26→20:43)
[2019-12-06] MEDS: ZINC OXIDE 20% OINT 30 GM TUBE TOP PRN (10:30)
[2019-12-06] MEDS: ACETAMINOPHEN 325 MG TABLET PO PRN ×3 (10:40→20:42)
[2019-12-06 12:15] LABS: CALCIUM 8.2 mg/dL (8.5-10.3); CREATININE 1.3 mg/dL (0.4-1.0)
[2019-12-06] MEDS: FERROUS SULFATE 325 MG TABLET PO SCH (12:36)
[2019-12-06] MEDS: RIVAROXABAN 15 MG TABLET PO SCH (17:06)
[2019-12-07 06:18] LABS: CALCIUM 8.2 mg/dL (8.5-10.3); CREATININE 1.4 mg/dL (0.4-1.0)
[2019-12-07] MEDS: LEVOTHYROXINE 100 MCG TABLET PO SCH (06:58)
[2019-12-07] MEDS ORDERED: BISACODYL 10 MG SUPP PR ONE (07:41)
[2019-12-07] MEDS ORDERED: MAGNESIUM CITRATE 296 ML BOTTLE PO ONE (07:41)
[2019-12-07] MEDS ORDERED: SALINE ENEMA 133 ML BOTTLE RC ONE (07:43)
[2019-12-07] MEDS ORDERED: SENNA 8.6 MG TABLET PO SCH (08:00)
[2019-12-07] MEDS ORDERED: methylPREDNISolone 4 MG TABLET PO ONE (08:00)
[2019-12-07] MEDS: DOCUSATE SODIUM 250 MG CAPSULE PO SCH (08:07)
[2019-12-07] MEDS: INSULIN ASPART 300 UNIT/3 ML PEN SUBQ SCH ×2 (08:09→12:01)
[2019-12-07] MEDS: LACTOBACILLUS RHAMNOSUS GG CAPSULE PO SCH (08:26)
[2019-12-07] MEDS: ACETAMINOPHEN 325 MG TABLET PO PRN (08:55)
[2019-12-07] MEDS: amLODIPine 5 MG TABLET PO SCH (08:56)
[2019-12-07] MEDS: FUROSEMIDE 20 MG TABLET PO SCH (09:00)
[2019-12-07] MEDS: ISOSORBIDE MONONITRATE ER 30 MG TABLET PO SCH (09:01)
[2019-12-07] MEDS: METOPROLOL SUCCINATE 50 MG TABLET PO SCH (09:02)
[2019-12-07] MEDS: INSULIN GLARGINE 300 UNIT/3 ML PEN SUBQ SCH (09:13)
[2019-12-07] MEDS: polyethylene glycoL 3350 17 GM PACKET PO SCH (09:14)
[2019-12-07] MEDS: ZINC OXIDE 20% OINT 30 GM TUBE TOP PRN (10:00)
[2019-12-07] MEDS: NYSTATIN POWDER 15 GM TOP SCH (10:02)
--- NOTE | 2019-12-07 10:13 | XRAY Report ---
Reason: hypoxia in spite of treatment Procedure Date: 12/07/2019 Accession Number: [id number] / [id number] Procedure: XR - Chest 1 View X-Ray CPT Code: 41795 Final Report FULL RESULT: EXAM: CHEST RADIOGRAPHY EXAM DATE: 12/07/2019 08:05 AM. CLINICAL HISTORY: Hypoxia in spite of treatment. COMPARISON: CHEST 1 VIEW 12/04/2019 10:28 AM. TECHNIQUE: 1 view. FINDINGS: Lungs/Pleura: Similar bibasal opacities,, increased right midlung opacity, atelectasis versus edema or infiltrate. Bilateral interstitial prominence. Probable small right pleural effusion. Mediastinum: Similar cardiomegaly, central pulmonary vascular congestion. Other: None. IMPRESSION: 1. Findings suggest moderate congestive failure. Concomitant pneumonia not excluded. Probable small right pleural effusion. RADIA
--- NOTE | 2019-12-07 10:44 | Discharge Plan ---
"Discharge Plan for SNF / [facility] - Discharge Plan And Transition Orders Problem Reviewed?: Yes Disposition: 03 SNF DC/Xfer Condition: Fair Allergies and Adverse Reactions: Allergies Allergy/AdvReac Type Severity Reaction Status Date / Time No Known Drug Allergies Allergy Verified 11/30/19 16:12 Health Concerns: This is a lady who has had multiple admissions for diastolic heart failure, and acute on chronic respiratory failure due to both hypoxia and hypercapnia. We feel that she has obesity hypoventilation syndrome as well as obstructive sleep apnea that has been undiagnosed because she is unable to get to a sleep lab or sleep specialist. With her last admission she was started on a trilogy mask. [place] [facility] after her last admission. Has been home for over a month or so. She has been sliding gradually downhill. Over the last few days before admission she was refusing to use her trilogy mask, was getting more more obtunded, and less and less ambulatory. When she came to our emergency room she was encephalopathic from hypercapnia, has had numerous skin ulcers identified and had scalding sheet loss of skin on her buttocks, was treated for pneumonia and a UTI.She continues to struggle with obesity, immobility. She spends most of her time in bed or wheelchair and is minimally active. Plan of Treatment: 1. She was placed in ICU and placed on BiPAP and then trilogy. She is still not completely and adequately treated. When she is on trilogy she tends to be mildly hypoxic. When she is off trilogy she tends to be mildly hypercapnic but with normal oxygen. If at all possible, please obtain a pulmonology consult if they are available through your facility. They are not available at our facility. 2. Pneumonia and UTI were treated for total of 7 days. The diagnosis of pneumonia was based on empiric evidence. We think her problem was more a UTI from a chronic indwelling Blanco catheter. She no longer needs antibiotics. 3. Diabetes mellitus was well-controlled during her stay. 4. She has mild acute diastolic heart failure. Required IV diuresis and then changed to p.o. diuresis. 5. Chronic kidney disease had an acute manifestation with a peak creatinine of 1.6. She is 1.4 on the day of discharge. 6. She is severely deconditioned and will need aggressive physical therapy to get her to be ambulatory to the point of just transferring, or being independent enough to get on and off a commode. Care Goals: To return to home under the care of her daughter. - SNF / NURSING HOME Transition Orders Under the care of (Name): [place] Discharge Diagnosis: 1. Acute metabolic encephalopathy secondary to #2. 2. Acute on chronic respiratory failure with hypercapnia 3. Obstructive sleep apnea and probable obesity hypoventilation syndrome 4. UTI 5. Acute on chronic diastolic heart failure 6. Chronic atrial fibrillation 7. Hypertension 8. Hypothyroidism 9. Type 2 diabetes mellitus, controlled, on insulin 10. Gastroesophageal reflux disease 11. Generalized weakness 12. Morbid obesity 13. Svetlana intertrigo 14. Stage II decubitus ulcers of buttock present on admission and improved at discharge Medicare Certification Statement: I certify that [facility] [place] [facility] [place] care is medically necessary on a continuing basis for any of the conditions for which she/he is receiving care during hospitalization. Notify PCP of admission and forward orders to primary provider for signature. Weight on admission and: Daily Call PCP immediately if weight increases by: 2.2 kg Other Notification Orders: Call PCP immediately if patient develops dyspnea, chest pain/tightness or edema. House Bowel Program: Yes Additional Bowel Program Orders: If no BM after 2 days, nurse may give M.O.M. 30ml PO PRN and/or ducolax Supp 1 CA and/or MICH 250mg P.O., and/or senna 1-2 tabs PO. On day 3 nurse may give repeat above order until residents constipation is resolved. Annual Influenza Vaccine (between Jun 01 and December 29): Yes Two-step PPD per [facility] [id number] or approved exception documents: Yes Oxygen Orders: To keep O2 sats above 90% and below 94%. Do this with nasal cannula oxygen or trilogy mask. Medication Orders: PLEASE REFER TO THE DISCHARGE MEDICATION LIST. Insulin Orders?: Yes - Medications New Prescriptions: Bacillus Coagulans/Inulin [Probichew 21 Billion Cell Chw] 1 each PO DAILY #7 tab.chew HYDROcod/ACETAM 5/325 [[place] 5/325] 0.5 - 1 tab PO TID PRN #30 tablet PRN Reason: Pain - Diet Type: No added sugar Texture: Regular Liquids: Thin May have monthly special meal: Yes - Therapies | Activity Therapy: Evaluation | Treat if indicated: PT, OT Rehabilitation Potential: Return to independent living Activity: Activity as Tolerated Weight Bearing: Full Weight Assistance Devices: Wheelchair, Walker Follow Up: Please see your primary care provider, Jose Luis Metcalf, when you leave the group home. Please also try make an effort to see if you can see a sleep specialist or a data architect manager for your breathing disorder. Insulin Orders - SNF Basal | Correction | Custom Orders: Diagnosis: Diabetes Initiate hypo and hyperglycemia protocols for BG <70 and BG >375. May check BG PRN for signs/symptoms of dysglycemia. Frequency of BG checks: [AC/Meal/HS] Basal Insulin: [X] Lantus 100 units / ml inject subq as follows: [10 units SQ bid ac] [X] Other: [Novolog 2 units SQ tidac] Correction Insulin: - Select the type of insulin below [Choose: Novolog/Humalog]100 units /ml insulin inject subq per orders indicate below [X] LOW DOSE [] MODERATE DOSE [] MODERATE/HIGH DOSE [] HIGH DOSE GB UNITS GB UNITS GB UNITS GB UNITS 61-140 0 UNITS 61-140 0 UNITS 61-140 0 UNITS 61-140 0 UNITS 141-175 1 UNITS 141-175 1 UNITS 141-175 2 UNITS 141-175 3 UNITS 176-225 2 UNITS 176-225 3 UNITS 176-225 4 UNITS 176-225 5 UNITS 226-275 3 UNITS 226-275 5 UNITS 226-275 6 UNITS 226-275 7 UNITS 276-325 4 UNITS 276-325 7 UNITS 276-325 8 UNITS 276-325 9 UNITS 326-375 5 UNITS 326-375 9 UNITS 326-375 10 UNITS 326-375 11 UNITS >375 CONTACT MD >375 CONTACT MD >375 CONTACT MD >375 CONTACT MD Custom Dosing: [Choose: Novolog/Humalog] 100 units/ml Insulin inject subq as follows: GB Units 61-140 [] Units 141-175 [] Units 176-225 [] Units 226-275 [] Units 276-325 []Units 326-375 [] Units >375 Contact MD"
[2019-12-07] MEDS: HYDROcod/ACETAM 5/325 MG TABLET PO PRN (10:51)
[2019-12-07 12:00] VITALS: BP 160/72
[2019-12-07] MEDS: FERROUS SULFATE 325 MG TABLET PO SCH (12:02)
--- NOTE | 2019-12-07 14:45 | DISCHARGE SUMMARY ---
Discharge Summary Admit Date: 11/30/19 Discharge Date: 12/07/19 Discharging Provider: Tracey Landrum MD Primary Care Provider: Jose Luis Metcalf MD Code Status: Do Not Attempt Resuscitation Condition at Discharge: Fair Discharge Disposition: SNF DC/Xfer Discharge Facility Name: [facility] - DIAGNOSES Discharge Diagnoses with Status of Each Condition: 1. Acute metabolic encephalopathy secondary to problem #2 2. Acute on chronic respiratory failure with hypercapnia 3. Obstructive sleep apnea and probable obesity hypoventilation syndrome 4. UTI with Enterococcus faecalis 5. Acute on chronic diastolic heart failure 6. Chronic atrial fibrillation 7. Hypertension 8. Type 2 diabetes mellitus, controlled, on insulin 9. Generalized weakness due to illness 10. Svetlana intertrigo 11. Stage II decubitus ulcers of bilateral buttock present on admission 12. Diffuse rash, diaper, both buttocks present on admission 13. Acute on chronic kidney disease stage III 14. Chronic indwelling Roldan catheter - HPI History of Present Illness: Patient is a 74 y/o female who presented to the ED today with altered mental status. Her daughter who provided the history reports that she was less responsive, diaphoretic and her oxygen saturation kept fluctuating even with her trilogy on. The patient has a chronic indwelling roldan catheter and is prone to recurrent UTI's. She has history of ESBL positive Klebsiella. She has been incontinent despite the roldan. As a result her buttocks and lower back appear hyperemic and peeling. She was last seen in the ED for a UTI about 4 weeks ago. She has had a significant decline in her physical ability since then and as a result, has been bed bound. She is no longer able to stand and pivot for transfer. Normally she can feed herself, but has not done so for the past couple of days. Her daughter has physical limitations to how much care she can provide the patient. It is reported that she has some in home health nurse care. Her last bowel movement was about 10 days ago and required digital disimpaction at the time. Work up in the ED included an ABG which showed a pH of 7.23, pO2 of 59 and a pCO2 of 99. Her UA was also strongly indicative of a UTI. As a result she was admitted to the ICU for further management. At bedside she is very somnolent. She would open her eyes upon persistent insistence but would not respond to any questions asked. Her medical history includes COPD. She uses a trilogy at home. Atrial fibrillation on xarelto, CHF, CAD, HTN, DM II on insulin - Past Medical History Cardiovascular: reports: Congestive heart failure, Hypertension, Coronary artery disease, MA Respiratory: reports: COPD, Emphysema, Shortness of breath, CPAP use, Other Neuro: reports: Migraines Endocrine/Autoimmune: reports: Type 2 diabetes, HyPOthyroidism GI: reports: GERD, Chronic constipation, Hemorrhoids CATASTROPHE CLAIMS SUPERVISOR: reports: None : reports: Incontinence, Indwelling catheter HEENT: reports: Chronic sinusitis, Chronic hearing loss Psych: reports: Depression, Anxiety Musculoskeletal: reports: Osteoarthritis, Chronic back pain Derm: reports: Other MRSA Hx?: No - HOSPITAL COURSE Hospital Course: This unfortunate female has had multiple admissions to our hospital for UTIs with sepsis, acute on chronic respiratory failure, and diastolic heart failure. With her last hospitalization she was discharged to a [facility] facility for [facility]hab. She is morbidly obese, relatively sedentary and her knees and its pain prohibit her from walking or standing too long. With 1 of her admissions s he was put on a trilogy mask to help with her chronic respiratory failure. She has not had a formal sleep study but she is felt to have obstructive sleep apnea and obesity hypoventilation syndrome. After being at the retirement facility for rehab, she was discharged to home. She lives with her daughter. She slowly slid downhill. Daughter has really wanted physical therapy at least 3 times a week and she was only certified for 1 day a week. She had a UTI a month ago and never really re covered with regards to mentation and energy levels from that UTI. For the last few days she has been pulling off her mask and as such, most likely, her hypercapnia has been getting steadily worse. She was initially placed on the floor. But her obtundation became severe enough that she had to be transferred to ICU for BiPAP. She was placed on BiPAP. And had very slow recovery from her hypercapnia. PCO2 was initially 99 and was down to about 54 for her steady-state status. It is been difficult to maintain her respiratory status with our services. [facility] and do not have pulmonology on staff. When we use her trilogy, her hypercapnia is treated well but she is hypoxic and requires 4 to 5 L of oxygen. When we put her on room air, no mask, asleep her oxygen levels are great but her hypercapnia worsens. When we put her on BiPAP, her hypercapnia is good but again, oxygenation drops a little. We had the construction sales representative from the [employer] work with her mask, doing different trials. She will need increased oxygen when she is transition to the retirement facility, Diastolic heart failure did worsen. Her diuretics have been temporarily suspend ed because she was dehydrated on admission. With treatment of UTI and dehydration, she became fluid overloaded and had to go back on diuresis. She is now on 20 mg twice daily of Lasix. She may need to go to 40 in the morning and 20 at night depending on how her daily weight does at the retirement facility. Her legs have become quite shrunken, no edema at this time. Urine grew out Enterococcus faecalis. She was initially treated empirically as pneumonia and UTI. In the end I do not think she had pneumonia and just the UTI. She went from meropenem and vancomycin to penicillin to then oral penicillin and now she is completed 7 days of treatment. She is very deconditioned and has generalized weakness. Right now she can get up out of bed with max assist of 2 people to get up to a chair. She breathes much better in the chair but then she gets exhausted and has to go back to bed. On admission, Svetlana intertrigo was seen in her pannus, intertriginous folds. Because she was laying in wet bed at home, the skin of her buttocks is peeled away and she also had early stage II decubitus ulcers present on admission. Those of all been treated with rotation of the body, zinc cream, nystatin cream, and she is improved tremendously from admission to now. - ALLERGIES Allergies/Adverse Reactions: Allergies Allergy/AdvReac Type Severity Reaction Status Date / Time No Known Drug Allergies Allergy Verified 11/30/19 16:12 - MEDICATIONS Home Medications: Ambulatory Orders Medication Instructions Recorded Confirmed Omeprazole 20 mg PO QDAC 05/30/19 12/02/19 Acetaminophen [Tylenol] 650 mg PO Q4HR PRN tablet 12/07/19 Atorvastatin Calcium 40 mg PO QPM #0 12/07/19 12/01/19 Bacillus Coagulans/Inulin 1 each PO DAILY #7 tab.chew 12/07/19 [Probichew 21 Billion Cell Chw] Ferrous Sulfate 325 mg PO DAILYWM #0 12/07/19 12/01/19 Furosemide 20 mg PO BID #0 12/07/19 12/01/19 HYDROcod/ACETAM 5/325 [[place] 5/325] 0.5 - 1 tab PO TID PRN #30 tablet 12/07/19 Isosorbide Mononitrate ER [Imdur] 30 mg PO DAILY #0 12/07/19 12/01/19 Levothyroxine Sodium [Synthroid] 150 mcg PO QDAC #0 12/07/19 12/01/19 Metoprolol Succinate [Toprol Xl] 50 mg PO DAILY #0 12/07/19 12/01/19 Nystatin Cream [Mycostatin Cream] 1 applic TOP DAILY #0 12/07/19 12/02/19 Nystatin [Nystop] 1 applic TOP BID bottle 12/07/19 Rivaroxaban [Xarelto] 15 mg PO QDDINNER #0 12/07/19 12/02/19 Zinc Oxide 1 applic TOP BID PRN #1 12/07/19 12/02/19 amLODIPine [Norvasc] 5 mg PO DAILY tablet 12/07/19 - LABS Result Diagrams: 12/05/19 04:30 12/07/19 05:53
[2019-12-08] MEDS ORDERED: methylPREDNISolone 4 MG TABLET PO ONE (08:00)
[2019-12-09] MEDS ORDERED: methylPREDNISolone 4 MG TABLET PO ONE (08:00)
== END 2019-12-07 15:15 | DRG 698 ==
LOC: EDUNIT# → ED 16:01 → MS3 17:31 → OBSVTOIN 17:31 → ICU 18:08
PROVIDERS: ADMIT Internal Medicine; ATTEND Specialist
DX: I11.0 Hypertensive heart disease with heart failure (principal); I50.22 Chronic systolic (congestive) heart failure; T83.518A Infection and inflammatory reaction due to other urinary catheter, initial encounter; N28.9 Disorder of kidney and ureter, unspecified; R41.82 Altered mental status, unspecified; R53.1 Weakness; T14.8XXA Other injury of unspecified body region, initial encounter; X58.XXXA Exposure to other specified factors, initial encounter; G93.41 Metabolic encephalopathy; E11.9 Type 2 diabetes mellitus without complications; J96.22 Acute and chronic respiratory failure with hypercapnia; J96.21 Acute and chronic respiratory failure with hypoxia; I50.33 Acute on chronic diastolic (congestive) heart failure; N30.00 Acute cystitis without hematuria; E66.2 Morbid (severe) obesity with alveolar hypoventilation; I13.0 Hypertensive heart and chronic kidney disease with heart failure and stage 1 through stage 4 chronic kidney disease, or unspecified chronic kidney disease; N17.9 Acute kidney failure, unspecified; I48.0 Paroxysmal atrial fibrillation; E87.5 Hyperkalemia; E11.22 Type 2 diabetes mellitus with diabetic chronic kidney disease; N18.3 Chronic kidney disease, stage 3 (moderate); Z68.39 Body mass index [BMI] 39.0-39.9, adult; B95.2 Enterococcus as the cause of diseases classified elsewhere; B37.2 Candidiasis of skin and nail; L89.322 Pressure ulcer of left buttock, stage 2; L89.312 Pressure ulcer of right buttock, stage 2; D63.1 Anemia in chronic kidney disease; E03.9 Hypothyroidism, unspecified; J43.9 Emphysema, unspecified; E86.0 Dehydration; L22 Diaper dermatitis; K21.9 Gastro-esophageal reflux disease without esophagitis; I25.10 Atherosclerotic heart disease of native coronary artery without angina pectoris; G89.29 Other chronic pain; M54.9 Dorsalgia, unspecified; M19.90 Unspecified osteoarthritis, unspecified site; J32.9 Chronic sinusitis, unspecified; H91.90 Unspecified hearing loss, unspecified ear; K59.09 Other constipation; K64.9 Unspecified hemorrhoids; R32 Unspecified urinary incontinence; Z66 Do not resuscitate; Z99.3 Dependence on wheelchair; Y92.009 Unspecified place in unspecified non-institutional (private) residence as the place of occurrence of the external cause; Z79.891 Long term (current) use of opiate analgesic; Z79.01 Long term (current) use of anticoagulants; Z79.4 Long term (current) use of insulin; Z79.51 Long term (current) use of inhaled steroids; I25.2 Old myocardial infarction; Z87.440 Personal history of urinary (tract) infections; Z87.891 Personal history of nicotine dependence; Z86.73 Personal history of transient ischemic attack (TIA), and cerebral infarction without residual deficits
CPT/HCPCS: 36415; 36600; 51702; 71045; 80048; 80053; 80202; 81001; 82550; 82565; 82803; 83036; 83605; 83690; 83880; 84443; 84484; 85025; 85610; 85730; 87040; 87077; 87086; 87150; 87181; 87275; 87276; 93005; 94640; 94660; 96360; 97110; 97161; 97166; 97530; 99285; A9270; J1815; J2185; J3370; J7509; 81003